=== PATIENT | female | born 1940 | race Caucasian/White ===

== ENCOUNTER 2017-09-29 12:15 | Emergency (ER) | payer MEDICARE, OTHER, SELFPAY | END 2017-09-29 13:47 | disposition home or self-care (01) | PROVIDERS: Emergency Provider Emergency Medicine; Family Provider Family Medicine; Visit Provider Emergency Medicine | DX: J45.909 Unspecified asthma, uncomplicated (principal); J20.9 Acute bronchitis, unspecified; E11.9 Type 2 diabetes mellitus without complications; Z79.4 Long term (current) use of insulin; I10 Essential (primary) hypertension; E78.5 Hyperlipidemia, unspecified; K21.9 Gastro-esophageal reflux disease without esophagitis; E03.9 Hypothyroidism, unspecified; Z20.828 Contact with and (suspected) exposure to other viral communicable diseases; Z79.899 Other long term (current) drug therapy | CPT/HCPCS: 71020; 87070; 87275; 87276; 87430 ==

== ENCOUNTER → 2017-10-29 09:31 | Outpatient (CLI) | payer MEDICARE, OTHER, SELFPAY ==
[2017-10-29 11:23] VITALS: PULSE 89; PULSE 90
== END ==
PROVIDERS: Family Provider Family Medicine; PCP Family Medicine; Visit Provider Physician Assistant
DX: J40 Bronchitis, not specified as acute or chronic (principal); R05 Cough
CPT/HCPCS: 94060; 94640; 94727; 94729

== ENCOUNTER → 2018-01-31 08:24 | Outpatient (CLI) | payer MEDICARE, OTHER, SELFPAY ==
[2018-01-31 11:59] LABS: Free T4 (Free Thyroxine) 1.67 ng/dl (0.76-1.46); Thyroid Stimulating Hormone 3.75 uIU/ml (0.358-3.740)
== END ==
PROVIDERS: Visit Provider Otolaryngology
DX: E03.9 Hypothyroidism, unspecified (principal)
CPT/HCPCS: 36415; 84439; 84443

== ENCOUNTER → 2018-03-04 10:07 | Outpatient (CLI) | payer MEDICARE, OTHER, SELFPAY ==
[2018-03-04 11:50] LABS: Free T4 (Free Thyroxine) 1.23 ng/dl (0.76-1.46); Thyroid Stimulating Hormone 8.35 uIU/ml (0.358-3.740)
== END ==
PROVIDERS: Visit Provider Otolaryngology
DX: E03.9 Hypothyroidism, unspecified (principal)
CPT/HCPCS: 36415; 84439; 84443

== ENCOUNTER → 2018-03-31 14:15 | Outpatient (CLI) | payer MEDICARE, OTHER, SELFPAY ==
[2018-04-02 12:25] LABS: Triiodothyronine (T3) Free 2.1 pg/mL (2.0-4.4)
== END ==
PROVIDERS: Family Provider Family Medicine; PCP Family Medicine; Visit Provider Otolaryngology
DX: E03.9 Hypothyroidism, unspecified (principal)
CPT/HCPCS: 36415; 84439; 84481

== ENCOUNTER → 2018-04-03 09:42 | Outpatient (CLI) | payer MEDICARE, OTHER, SELFPAY ==
--- NOTE | 2018-04-03 09:50 | MM_ITS ---
MM Dig screening mamm BI w/CAD CAD Screening COMPARISON: Digital mammograms 07/26/2016 INDICATION: There is no personal or family history of breast cancer. TECHNIQUE: Standard CC and MLO images were obtained. R2 CAD reviewed. FINDINGS: Breasts are composed primarily of fat with scattered fiber glandular densities throughout each breast. There are few scattered benign-appearing calcifications in each breast. There are stable tiny nodular densities in each breast. There is no suspicious lesion and there are no suspicious microcalcifications. IMPRESSION: Fatty type breast parenchyma with no suspicious lesion seen BI-RADS Category: 2 Benign Finding(s) RECOMMENDED FOLLOW-UP: 1YR - 1 YEAR FOLLOW-UP (A letter has been sent to the patient regarding results of the study.)
== END ==
PROVIDERS: Family Provider Family Medicine; PCP Family Medicine; Visit Provider Family Medicine
DX: Z12.31 Encounter for screening mammogram for malignant neoplasm of breast (principal)
CPT/HCPCS: 77067

== ENCOUNTER → 2018-10-09 09:42 | Outpatient (CLI) | payer MEDICARE, OTHER, SELFPAY ==
[2018-10-09 11:13] LABS: Free T4 (Free Thyroxine) 1.36 ng/dl (0.76-1.46); Thyroid Stimulating Hormone 2.82 uIU/ml (0.358-3.740)
== END ==
PROVIDERS: Visit Provider Otolaryngology
DX: E03.9 Hypothyroidism, unspecified (principal)
CPT/HCPCS: 36415; 84439; 84443

== ENCOUNTER → 2019-03-19 08:21 | Outpatient (CLI) | payer MEDICARE, OTHER, SELFPAY ==
--- NOTE | 2019-03-19 08:26 | XR_ITS ---
XR chest 2V HISTORY: ITS.REASON: COUGH ORDERING PHYSICIAN: Harry Cotter MD PATIENT AGE: 78 years COMPARISON: 09/29/2017 FINDINGS: The cardiomediastinal silhouette and pulmonary vascularity are within normal limits. Linear density is present within the lingula and may be due to an area of atelectasis or fibrosis. The remaining lungs are clear. No acute bony findings. IMPRESSION: Atelectatic or fibrotic changes within the lingula
== END ==
PROVIDERS: PCP Family Medicine; Visit Provider Family Medicine
DX: R05 Cough (principal)
CPT/HCPCS: 71046

== ENCOUNTER → 2019-04-07 10:55 | Outpatient (CLI) | payer MEDICARE, OTHER, SELFPAY ==
[2019-04-07 12:33] LABS: Free T4 (Free Thyroxine) 1.42 ng/dl (0.76-1.46); Thyroid Stimulating Hormone 2.51 uIU/ml (0.358-3.740)
== END ==
PROVIDERS: Visit Provider Otolaryngology
DX: E03.9 Hypothyroidism, unspecified (principal)
CPT/HCPCS: 36415; 84439; 84443

== ENCOUNTER → 2019-04-21 09:40 | Outpatient (CLI) | payer MEDICARE, OTHER, SELFPAY ==
--- NOTE | 2019-04-21 09:46 | MM_ITS ---
MM Dig screening mamm BI w/CAD ORDERING PHYSICIAN : Harry Cotter MD PATIENT AGE: 78 years GENDER: Female COMPARISON: March 2018, August 2013, March 2015 + INDICATION: Routine l SCREENING TECHNIQUE: Standard CC and MLO images were obtained. R2 CAD reviewed. Additional Cc nipple profile views bilateral included FINDINGS: Minimal residual fibroglandular elements throughout the breast most evident towards upper-outer quadrant. Moderate generalized fatty replacement otherwise most evident towards the deep breast Overall fibroglandular pattern is stable with no new areas of significant concern. There are some scattered small areas of nodularity bilaterally but these appear similar to previous studies. RIGHT BREAST:No new areas of significant concern Scattered small discrete punctate calcifications at the medial right breast are likely within the skin based on prior studies. Not of concern LEFT BREAST:No new areas significant concern Small calcifications at the superior central breast 12:00 are unchanged. Since 2014 ............ IMPRESSION: ............ . Stable mammogram with no new areas significant concern... BI-RADS Category: 2 Benign Finding(s) RECOMMENDED FOLLOW-UP: 1YR 1 YEAR FOLLOW-UP (A letter has been sent to the patient regarding results of the study.)
--- NOTE | 2019-04-21 09:47 | XR_ITS ---
XR DEXA axial skeleton HISTORY: ITS.REASON: OSTEOPORSIS ORDERING PHYSICIAN: Harry Cotter MD PATIENT AGE: 78 years COMPARISON: None FINDINGS: There are some areas of mild false elevation of the bone density measurement in the mid lumbar spine which could be from degenerative changes although I cannot rule out some overlying arterial calcified plaques which also cause false elevation of the bone mass. The BMD measured at the left femoral neck is 0.693 g/cm squared with a T score of -2.5. This is considered osteoporosis according to the World Health Organization criteria. Fracture risk is Moderate. Treatment is advised. IMPRESSION: Osteoporosis.
== END ==
PROVIDERS: PCP Family Medicine; Visit Provider Family Medicine
DX: Z12.31 Encounter for screening mammogram for malignant neoplasm of breast (principal); M81.0 Age-related osteoporosis without current pathological fracture
CPT/HCPCS: 77067; 77080

== ENCOUNTER → 2019-10-06 11:17 | Outpatient (CLI) | payer MEDICARE, OTHER, SELFPAY ==
[2019-10-06 13:06] LABS: Free T4 (Free Thyroxine) 1.13 ng/dl (0.76-1.46); Thyroid Stimulating Hormone 7.83 uIU/ml (0.358-3.740)
== END ==
PROVIDERS: Visit Provider Otolaryngology
DX: E03.9 Hypothyroidism, unspecified (principal)
CPT/HCPCS: 36415; 84439; 84443

== ENCOUNTER → 2019-10-20 08:27 | Outpatient (CLI) | payer MEDICARE, OTHER, SELFPAY ==
--- NOTE | 2019-10-20 08:33 | US_ITS ---
PROCEDURE: US ABDOMEN LIMITED CLINICAL INDICATION: RUQ PAIN COMPARISON: Palpable mass abdominal wall FINDINGS: PANCREAS: Unremarkable. No obvious mass or abnormal fluid collection. No ductal dilatation LIVER: There is heterogenicity of liver echotexture. No focal liver lesions demonstrated. No intrahepatic biliary ductal dilatation evident. There is appropriate direction of blood flow within a non dilated portal vein RIGHT KIDNEY: Unremarkable. Normal size and echogenicity. No hydronephrosis GALLBLADDER: There is cholelithiasis without ancillary findings of acute cholecystitis. There is no gallbladder wall thickening or findings of acute cholecystitis, pericholecystic fluid, or biliary dilatation. Images of the anterior abdominal wall targeted to the area of palpable abnormality demonstrates soft tissues with a questionable poorly defined mass measuring up to 5.8 x 4.7 centimeters. No benign appearing cyst or fluid collection is apparent. Consider CT for more definitive assessment. IMPRESSION: Cholelithiasis without ancillary findings of acute cholecystitis. Questionable soft tissue mass of anterior abdominal wall corresponding to palpable abnormality. CT should be considered to further evaluate. Dictated by: Alvarez More 10/20/2019 09:48 Electronically signed by Alvarez More in [facility] 10/20/2019 09:48
== END ==
PROVIDERS: PCP Family Medicine; Visit Provider Family Medicine
DX: R10.11 Right upper quadrant pain (principal)
CPT/HCPCS: 76705

== ENCOUNTER → 2019-10-30 08:42 | Outpatient (CLI) | payer MEDICARE, OTHER, SELFPAY ==
[2019-10-30 10:06] LABS: Blood Urea Nitrogen 15 mg/dL (7-18); Creatinine,Serum 1.09 mg/dL (0.55-1.02); Estimated Glomerular Filt Rate 48 ml/min (>60); GFR (African American) 59 ML/MIN (>60)
== END ==
PROVIDERS: Visit Provider Family Medicine
DX: M79.9 Soft tissue disorder, unspecified (principal)
CPT/HCPCS: 36415; 82565; 84520

== ENCOUNTER → 2019-11-04 09:21 | Outpatient (CLI) | payer MEDICARE, OTHER, SELFPAY ==
--- NOTE | 2019-11-04 09:32 | CT_ITS ---
PROCEDURE: CT ABDOMEN WO CON CLINICAL HISTORY: SOFT TISSUE MASS,ATTN TO RUQ ABD WALL Right-sided abdominal soft tissue mass COMPARISON: ABDPELW/O CT ABD PELVIS W/O CONTRAST from 02/01/2015 US ABDOMEN LIMITED from 10/20/2019 TECHNIQUE: Axial images obtained with sagittal and coronal reformats. All CT scans at the facility use one or more dose reduction, viz: automated exposure control, ma/kV adjustment per patient size (including targeted exams where dose is matched to indication, i.e. head), or iterative reconstruction technique. FINDINGS: There are mild atelectatic changes in the lung bases. Coronary artery and mitral valve annular calcifications are noted. Cholelithiasis. There is elevation of the right hemidiaphragm. The liver, spleen, adrenal glands, and pancreas have an unremarkable appearance. 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 There is a 2 mm punctate stone in the mid aspect of the right kidney. The left kidney has an unremarkable appearance. No ureteral calculi are evident. There is diverticulosis of the colon. The pelvis is not imaged on the exam. A marker is placed in the right mid abdominal region anteriorly correlating to the palpable abnormality. There is asymmetry in the subcutaneous fat at this area consistent with lipoma involvement. No suspicious soft tissue masses are evident. There are mild degenerative changes of the lumbar spine. IMPRESSION: 1. Palpable abnormality in the anterior abdominal wall in the right represents benign-appearing subcutaneous fat consistent with lipomatosis involvement. 2. Cholelithiasis. 3. Right nephrolithiasis. 4. Colonic diverticulosis Dictated by: Chris Jha MD 11/05/2019 08:15 Electronically signed by Chris Jha MD in [facility] 11/05/2019 08:15
== END ==
PROVIDERS: PCP Family Medicine; Visit Provider Family Medicine
DX: M79.9 Soft tissue disorder, unspecified (principal)
CPT/HCPCS: 74150

== ENCOUNTER → 2020-01-08 10:15 | Outpatient (CLI) | payer MEDICARE, OTHER, SELFPAY ==
--- NOTE | 2020-01-08 | CA_ITS ---
APPROVED REPORT Left Lower Extremity Venous Study for DVT. Lead Systems Architect: CÉSAR Indications Lower Extremity Pain: Lower Extremity Edema: Left Risk Factors Prior Phlebitis/DVT Obesity Vein Imaging CFV (L): compressive, spontaneous, phasic, augmentation FEM (L): compressive, spontaneous, phasic, augmentation POP (L): compressive, spontaneous, phasic, augmentation PTV (L): Compressible GSV (L): compressive, spontaneous, phasic, augmentation SSV (L): Compressible Peroneals (L):Compressible GAS (L): Compressible Findings No evidence of DVT or superficial thrombophlebitis in the veins scanned of the left lower extremity. Conclusion No evidence of DVT or superficial thrombophlebitis in the veins scanned of the left lower extremity. Electronically signed by : Chris Jha MD 01/08/2020 13:47:30
== END ==
PROVIDERS: PCP Family Medicine; Visit Provider Family Medicine
DX: M79.605 Pain in left leg (principal)
CPT/HCPCS: 93971

== ENCOUNTER → 2020-04-04 08:30 | Outpatient (CLI) | payer MEDICARE, OTHER, SELFPAY ==
[2020-04-04 10:31] LABS: Thyroid Stimulating Hormone 8.52 uIU/mL (0.465-4.68)
[2020-04-04 11:09] LABS: Free T4 (Free Thyroxine) 1.13 ng/dl (0.78-2.19)
== END ==
PROVIDERS: Visit Provider Otolaryngology
DX: E03.9 Hypothyroidism, unspecified (principal); E06.9 Thyroiditis, unspecified
CPT/HCPCS: 36415; 84439; 84443

== ENCOUNTER 2020-04-05 17:58 | Emergency (ER) | payer MEDICARE, OTHER, SELFPAY ==
--- NOTE | 2020-04-05 | ECG_ITS ---
APPROVED REPORT Exam: Resting ECG HR:85 bpm ECG Measurements Heart Rate 85 AXES KS 166 P 72 QRSd 90 QRS -46 QT 398 T 44 QTc 473 <Conclusion> Sinus rhythm with marked sinus arrhythmia Left anterior fascicular block Minimal voltage criteria for LVH, may be normal variant Possible Anterior infarct, age undetermined Abnormal ECG Electronically signed by : John Rosado, 04/07/2020 15:36:14
[2020-04-05 18:11] VITALS: BP 190/82; PULSE 109; RESP 18; TEMP 36.6; O2SAT 96; BMI 38.6
--- NOTE | 2020-04-05 18:20 | ECG_ITS ---
APPROVED REPORT Exam: Resting ECG HR:86 bpm ECG Measurements Heart Rate 86 AXES RI 178 P 32 QRSd 94 QRS -44 QT 398 T 42 QTc 476 <Conclusion> Sinus rhythm with marked sinus arrhythmia Left axis deviation Incomplete right bundle branch block Minimal voltage criteria for LVH, may be normal variant Anterior infarct, age undetermined Abnormal ECG Electronically signed by : John Rosado, 04/07/2020 15:35:41
--- NOTE | 2020-04-05 18:22 | HMH.EDGENADL ---
ED Disposition Clinical Impression: Hypertension Qualifiers: Hypertension type: essential hypertension Qualified Code(s): I10 - Essential (primary) hypertension Disposition: Home, Self-Care Condition on Discharge: Good Instructions: Recommendations to Help Prevent High Blood Pressure Additional Instructions: You have been evaluated for high blood pressure. Please continue to take all medications as prescribed. Follow-up with your primary care provider tomorrow as scheduled. You may need to make changes to your medication at that time. Return to the emergency department if you have any new or worsening symptoms, headache, vision changes, chest pain, other concerns. Referrals: Harry Cotter MD [Primary Care Provider] - Time of Disposition: 20:08 - Critical Care Critical Care Time: No Attestation: On 04/05/20, the high probability of a clinically significant, sudden or life threatening deterioration of the following system(s) required my full and direct attention, intervention and personal management. The time I documented below is in addition to time spent performing reported procedures but includes the following listed in this critical care notation. Medical Decision Making - Medical Records Medical records reviewed: Yes: I reviewed the patient's medical records. - Wojciech Inquiry Pt receiving controlled substance: No Vital Signs: 04/05/20 18:11 04/05/20 19:40 04/05/20 20:00 Temperature 97.9 F Temperature Source Oral Pulse Rate [Right Brachial] 109 H 90 77 Respiratory Rate 18 18 17 Blood Pressure [Right Arm] 190/82 H 157/85 H 171/68 H Blood Pressure Mean [Right Arm] 118 109 102 Blood Pressure Source [Right Arm] Automatic Cuff Automatic Cuff Automatic Cuff Blood Pressure Position [Right Arm] Sitting Sitting Supine 02 Sat by Pulse Oximetry 96 94 L 94 L Oxygen Delivery Method Room Air Room Air Room Air - Lab Data Lab Results 04/05/20 18:10: WBC 7.1, RBC 4.76, Hgb 14.8, Hct 43.2, MCV 90.7, MCH 31.1, MCHC 34.3, RDW 14.1, Plt Count 403, MPV 7.9, Neut % (Auto) 53.4, Lymph % (Auto) 37.5, [place] % (Auto) 6.2, Eos % (Auto) 2.4, Baso % (Auto) 0.7, Neut # (Auto) 3.8, Lymph # (Auto) 2.7, [place] # (Auto) 0.4, Eos # (Auto) 0.2, Baso # (Auto) 0.1 04/05/20 18:10: Sodium 140, Potassium 4.3, Chloride 107, Carbon Dioxide 24, Anion Gap 13.3, BUN 14, Creatinine 0.70, Estimated Creat Clear 75, Estimated GFR 81, Est GFR ( Amer) 97, Glucose 184 H, Calcium 9.6, Phosphorus 3.8, Magnesium 1.9, Total Bilirubin 0.7, AST 42 H, ALT 27, Alkaline Phosphatase 123, Troponin I < 0.01, Total Protein 7.4, Albumin 4.0, Globulin 3.4 H, Albumin/Globulin Ratio 1.2, TSH 6.35 H D 04/05/20 18:10: NT-Pro-B Natriuret Pep 236 04/05/20 18:10: Free T4 1.15 04/05/20 19:35: Urine Color Yellow, Urine Appearance Clear, Urine pH 5.5, Ur Specific [place] >= 1.030, Urine Protein 2+, Urine Glucose (UA) Negative, Urine Ketones Trace, Urine Blood Negative, Urine Nitrate Negative, Urine Bilirubin Negative, Urine Urobilinogen 1.0, Ur Leukocyte Esterase Trace, Urine WBC 3-5, Ur Squamous Epith Cells 5-10, Urine Bacteria Trace, Hyaline Casts Occasional Result diagrams: 04/05/20 18:10 04/05/20 18:10 Orders (Tests/Meds): ORDERS Category Date Time Status XR chest portable Stat Exams 04/05/20 18:52 Taken Troponin I Q3H Lab 04/05/20 21:30 Ordered Troponin I Q3H Lab 04/06/20 00:30 Ordered EKG Request [ECG Request by /[facility]] Stat Y 04/05/20 18:20 Ordered EKG Request [ECG Request by /[facility]] Stat Y 04/05/20 19:25 Ordered - ECG Data Tracing #1 Sinus rhythm with ventricular rate of 85 bpm. QRS 90, QTc 473. Marked sinus arrhythmia. Medical Decision Narrative: In summary this is an 79-year-old female with history of hypertension presenting to the emergency department palpitations and elevated blood pressure. Patient is conversational on arrival. No acute distress. Differential diagnoses include essential hypertension, medication misu
[2020-04-05 18:31] LABS: Basophils # 0.1 K/mm3 (0-0.2); Basophils % 0.7 % (0.1-2.0); Eosinophils # 0.2 K/mm3 (0.0-0.4); Eosinophils % 2.4 % (0.1-12.0); Hematocrit 43.2 % (37.0-47.0); Hemoglobin 14.8 g/dL (12.2-16.2); Lymphocytes # 2.7 K/mm3 (0.7-4.5); Lymphocytes % 37.5 % (10-50); Mean Corpuscular HGB Conc 34.3 g/dL (31.8-35.4); Mean Corpuscular Hemoglobin 31.1 pg (27.0-31.2); Mean Corpuscular Volume 90.7 fl (81-99); Mean Platelet Volume 7.9 fl (7.4-10.4); Monocytes # 0.4 K/mm3 (0.1-1.0); Monocytes % 6.2 % (1.7-9.3); Neutrophils # 3.8 K/mm3 (1.8-7.8); Neutrophils % 53.4 % (37.0-80.0); Platelet Count 403 K/mm3 (142-424); Red Blood Count 4.76 M/mm3 (4.20-5.40); Red Cell Distribution Width 14.1 % (11.5-17.5); White Blood Count 7.1 K/mm3 (4.8-10.8)
[2020-04-05 18:33] LABS: Chloride 107 mmol/L (98-107); Potassium 4.3 mmoL/L (3.5-5.1); Sodium 140 mmol/L (136-145)
[2020-04-05 18:35] LABS: Blood Urea Nitrogen 14 mg/dl (7-17); Creatinine Clearance Estimated 75 mL/min (50-200); Estimated Glomerular Filt Rate 81 ml/min (>60); GFR (African American) 97 ML/MIN (>60)
[2020-04-05 18:36] LABS: Alanine Aminotransferase 27 U/L (12-78); Albumin/Globulin Ratio 1.2 (1.1-1.8); Alkaline Phosphatase 123 U/L (38-126); Anion Gap 13.3 mEq/L (5-15); Aspartate Amino Transferase 42 U/L (14-36); Bilirubin,Total 0.7 mg/dl (0.2-1.3); Calcium 9.6 mg/dl (8.4-10.2); Carbon Dioxide 24 mmol/L (22.0-30.0); Globulin 3.4 g/dL (1.3-3.2); Glucose 184 mg/dl (74-100); Magnesium 1.9 mg/dl (1.6-2.3); Phosphorous 3.8 mg/dl (2.5-4.5); Total Protein,Serum 7.4 g/dl (6.3-8.2)
[2020-04-05 18:44] LABS: NT Pro Brain Natriuretic Pep. 236 pg/mL (0-450)
--- NOTE | 2020-04-05 18:52 | XR_ITS ---
PROCEDURE: XR CHEST PORTABLE CLINICAL HISTORY: sob Shortness of breath, hypertension COMPARISON: CXR CHEST(2 VIEWS-NOT PORTABLE) from 03/16/2016 CXR CHEST(2 VIEWS-NOT PORTABLE) from 08/15/2017 CXR CHEST(2 VIEWS-NOT PORTABLE) from 09/29/2017 FINDINGS: Borderline cardiomegaly without failure. The lungs are clear without infiltrates, suspicious nodules, or pleural effusions. No acute bony abnormalities. IMPRESSION: Borderline cardiomegaly, no acute Dictated by: Chris Jha MD 04/06/2020 07:30 Electronically signed by Chris Jha MD in [facility] 04/06/2020 07:30
[2020-04-05 18:57] LABS: Troponin I < 0.01 ng/ml (0.00-0.034)
[2020-04-05 19:03] LABS: Free T4 (Free Thyroxine) 1.15 ng/dl (0.78-2.19)
[2020-04-05 19:06] LABS: Thyroid Stimulating Hormone 6.35 uIU/mL (0.465-4.68)
[2020-04-05 19:40] VITALS: BP 157/85; PULSE 90; RESP 18; O2SAT 94
[2020-04-05 19:44] LABS: Microscopic, Urine URINE MICROSCOPIC (MICROSCOPIC)
[2020-04-05 19:48] LABS: Appearance,Urine CLEAR (Clear); Bilirubin,Urine Negative (Negative); Blood, Urine Negative (Negative); Color,Urine YELLOW (Yellow); Glucose,Urine (UA) Negative (Negative); Ketones,Urine TRACE (Negative); Leukocyte Esterase,Urine TRACE (Negative); Nitrate,Urine Negative (Negative); PH,Urine 5.5 (5.0-8.5); Protein,Urine 2+ (Negative); Specific Gravity, Urine >= 1.030 (1.005-1.030)
[2020-04-05 19:55] LABS: Bacteria,Urine Trace /lpf; Hyaline Casts,Urine Occasional #/lpf (0)
[2020-04-05 20:00] VITALS: BP 171/68; PULSE 77; RESP 17; O2SAT 94
[2020-04-05 20:22] VITALS: BP 171/68; PULSE 77; RESP 17; TEMP 36.6; O2SAT 98
== END 2020-04-05 20:25 | disposition home or self-care (01) ==
PROVIDERS: Emergency Provider Emergency Medicine; PCP Family Medicine
DX: I16.0 Hypertensive urgency (principal); E03.9 Hypothyroidism, unspecified; E78.5 Hyperlipidemia, unspecified; E11.9 Type 2 diabetes mellitus without complications; Z79.899 Other long term (current) drug therapy; Z90.49 Acquired absence of other specified parts of digestive tract; Z90.79 Acquired absence of other genital organ(s); R06.02 Shortness of breath
CPT/HCPCS: 71045; 80053; 81001; 83735; 83880; 84100; 84439; 84443; 84484; 85025; 93005; 99283; 99284

== ENCOUNTER → 2020-04-13 15:36 | Outpatient (CLI) | payer MEDICARE, OTHER, SELFPAY ==
[2020-04-13 18:10] LABS: Basophils % 0.3 % (0.1-2.0); Eosinophils # 0.1 K/mm3 (0.0-0.4); Eosinophils % 0.6 % (0.1-12.0); Hematocrit 41.8 % (37.0-47.0); Hemoglobin 14.3 g/dL (12.2-16.2); Lymphocytes # 3.5 K/mm3 (0.7-4.5); Lymphocytes % 28.6 % (10-50); Mean Corpuscular HGB Conc 34.1 g/dL (31.8-35.4); Mean Corpuscular Hemoglobin 31.4 pg (27.0-31.2); Mean Corpuscular Volume 92.2 fl (81-99); Mean Platelet Volume 8.8 fl (7.4-10.4); Monocytes # 0.8 K/mm3 (0.1-1.0); Monocytes % 6.9 % (1.7-9.3); Neutrophils # 7.7 K/mm3 (1.8-7.8); Neutrophils % 63.5 % (37.0-80.0); Platelet Count 377 K/mm3 (142-424); Red Blood Count 4.54 M/mm3 (4.20-5.40); Red Cell Distribution Width 13.9 % (11.5-17.5); White Blood Count 12.1 K/mm3 (4.8-10.8)
[2020-04-13 18:14] LABS: Chloride 105 mmol/L (98-107); Potassium 3.9 mmoL/L (3.5-5.1); Sodium 140 mmol/L (136-145)
[2020-04-13 18:16] LABS: Amylase 59 U/L (30-110); Blood Urea Nitrogen 35 mg/dl (7-17); Estimated Glomerular Filt Rate 53 ml/min (>60); GFR (African American) 65 ML/MIN (>60)
[2020-04-13 18:17] LABS: Alanine Aminotransferase 20 U/L (12-78); Albumin Level 3.7 g/dl (3.5-5.0); Albumin/Globulin Ratio 1.1 (1.1-1.8); Alkaline Phosphatase 96 U/L (38-126); Aspartate Amino Transferase 30 U/L (14-36); Bilirubin,Total 0.6 mg/dl (0.2-1.3); Calcium 8.6 mg/dl (8.4-10.2); Carbon Dioxide 23 mmol/L (22.0-30.0); Globulin 3.4 g/dL (1.3-3.2); Glucose 165 mg/dl (74-100); Lipase 163 U/L (23-300); Total Protein,Serum 7.1 g/dl (6.3-8.2)
[2020-04-15 14:12] LABS: Covid-19 Nasal PCR Sendout Lex NOT DETECTED
== END ==
PROVIDERS: PCP Physician Assistant; Visit Provider Physician Assistant
DX: Z03.818 Encounter for observation for suspected exposure to other biological agents ruled out (principal)
CPT/HCPCS: 36415; 80053; 82150; 83690; 85025; U0004

== ENCOUNTER → 2020-04-20 10:36 | Outpatient (CLI) | payer MEDICARE, OTHER, SELFPAY ==
--- NOTE | 2020-04-20 10:43 | XR_ITS ---
PROCEDURE: XR CHEST 2V CLINICAL HISTORY: SHORTNESS OF BREATH COMPARISON: CT ABDOMEN WO CON from 11/04/2019 FINDINGS: There is mild cardiomegaly without failure. Atelectatic changes are present in both lower lobes. Coarse calcification noted in the left upper quadrant consistent with a splenic artery aneurysm measuring 12 mm. No acute bony abnormalities. IMPRESSION: Cardiomegaly with mild bibasilar atelectasis Dictated by: Chris Jha MD 04/20/2020 13:05 Electronically signed by Chris Jha MD in [facility] 04/20/2020 13:05
== END ==
PROVIDERS: PCP Physician Assistant; Visit Provider Physician Assistant
DX: R06.02 Shortness of breath (principal)
CPT/HCPCS: 71046

== ENCOUNTER → 2020-05-02 08:59 | Outpatient (CLI) | payer MEDICARE, OTHER, SELFPAY ==
--- NOTE | 2020-05-02 09:04 | CA_ITS ---
APPROVED REPORT EXAM: Comprehensive 2D, Doppler, and color-flow Echocardiogram Industrial Custodian: Alexia Reis RVT Ht: 5 ft 5 in Wt: 226lbs BSA: 2.08 BP: 113/76 mmHg Indications: SOA,HTN,OBESITY 2D Dimensions LVOT 1.66 cm (M/F) 1.5-2.5 M-Mode Dimensions RVDd 2.50 cm (0.9-2.6) LVDd 4.75 cm (3.5-5.7) LVDs 2.88 cm (3.5-5.7) IVSd 1.23 cm (0.6-1.1) PWd 0.81 cm (0.6-1.1) EF (Teich) 69.80% FS 39.40% EDV (Teich) 104.90 mL ESV (Teich) 31.70 mL LV Diastology E/A Ratio 1.47 Aortic Valve AO VTI 53.04 (18-25 cm) Mitral Valve MV A Velocity 72.00 (40-130 cm/s) MV PHT 117.00 ms Left Ventricle Left atrium is mildly enlarged, left ventricle is normal size, mild concentric left ventricular hypertrophy, visually estimated ejection fraction 55% with no regional wall motion abnormality. Diastolic parameters are inconclusive. Right Ventricle Right atrium and right ventricular relatively normal size and function. Aortic Valve Aortic valve is thickened and calcified leaflet chordae display good mobility, there is no aortic stenosis or aortic insufficiency. Mitral Valve Mitral valve leaflets are minimally thickened, there is mild mitral regurgitation. Tricuspid Valve Tricuspid valve leaflets are minimally thickened, there is no tricuspid stenosis, there is mild tricuspid regurgitation, tricuspid regurgitation jet velocity is inadequate for calculation of the right ventricular systolic pressure. Pulmonic Valve Pulmonic valve is poorly visualized. Great Vessels Aortic root is normal size. Pericardium No significant pericardial effusion noted. Conclusion 1. Mildly enlarged left atrium, normal left ventricular size, mild concentric left ventricular hypertrophy, visually estimated ejection fraction 55% with no regional wall motion abnormality, diastolic parameters are inconclusive. 2. Thickened and calcified aortic valve without Doppler evidence of aortic stenosis or aortic insufficiency. 3. Mild mitral and tricuspid regurgitation. 4. No significant pericardial effusion noted. Electronically signed by : Randy Culver, 05/02/2020 18:51:48
== END ==
PROVIDERS: PCP Physician Assistant; Visit Provider Family Medicine
DX: R06.02 Shortness of breath (principal)
CPT/HCPCS: 93306

== ENCOUNTER → 2020-05-17 08:44 | Outpatient (CLI) | payer MEDICARE, OTHER, SELFPAY ==
--- NOTE | 2020-05-17 08:48 | MM_ITS ---
PROCEDURE: MM DIG SCREENING MAMM BI W/CAD Digital Breast Tomosynthesis Included CLINICAL INDICATION: SCREENING There is no personal or family history of breast cancer. COMPARISON: CR,MG BONE3 BONE DENSITOMETRY(HIP:LT SPINE from 03/19/2017 MG [facility] MM Dig screening mamm BI w/CAD from 04/03/2018 MG DIG MAMM-SCREEN MILY from 04/21/2019 TECHNIQUE: Standard CC and MLO images and 3D Tomosynthesis was obtained. R2 CAD reviewed. FINDINGS: Moderate scattered fibroglandular densities are seen throughout both breast and the findings are fairly symmetrical bilaterally. There are scattered benign-appearing microcalcifications in each breast. There is a mole marker left breast. There is no suspicious lesion in either breast and no suspicious microcalcifications. IMPRESSION: Fibrofatty parenchyma with no suspicious lesions seen BI-RAD Category: 2 Benign Finding(s) FOLLOW-UP: 1YR 1 Year Follow-up (A letter has been sent to the patient regarding results of the study.) Dictated by: Dr. Hugo Ha MD 05/17/2020 11:56 Dr. Hugo Ha MD in [facility] 05/17/2020 11:56
== END ==
PROVIDERS: PCP Family Medicine; Visit Provider Family Medicine
DX: Z12.31 Encounter for screening mammogram for malignant neoplasm of breast (principal)
CPT/HCPCS: 77063; 77067

== ENCOUNTER → 2020-06-09 11:28 | Outpatient (CLI) | payer MEDICARE, OTHER, SELFPAY ==
--- NOTE | 2020-06-09 11:34 | XR_ITS ---
PROCEDURE: XR HIP RT 2-3V W/PELVIS CLINICAL INDICATION: PAIN IN R LEG, UNSPECIFIED FALL COMPARISON: CR,MG BONE3 BONE DENSITOMETRY(HIP:LT SPINE from 03/19/2017 FINDINGS: There are mild osteoarthritic changes of the hips. No fracture or dislocation. No lytic or blastic change. Nonspecific vascular calcification is noted. IMPRESSION: Mild osteoarthritic change of the hips Dictated by: Chris Jha MD 06/09/2020 16:55 Chris Jha MD in [facility] 06/09/2020 16:55
--- NOTE | 2020-06-09 11:34 | XR_ITS ---
PROCEDURE: XR KNEE RT 3V CLINICAL INDICATION: PAIN IN R LEG, UNSPECIFIED FALL COMPARISON: No exams were available for comparison FINDINGS: No fracture or dislocation. No lytic or blastic change. There is normal mineralization. The joint spaces are well-preserved. No significant degenerative/arthritic changes. No erosive changes evident. Other findings:None. IMPRESSION: No acute findings. Dictated by: Chris Jha MD 06/09/2020 16:54 Chris Jha MD in [facility] 06/09/2020 16:54
== END ==
PROVIDERS: PCP Family Medicine; Visit Provider Family Medicine
DX: M79.604 Pain in right leg (principal)
CPT/HCPCS: 73502; 73562

== ENCOUNTER → 2020-06-27 08:17 | Outpatient (CLI) | payer MEDICARE, OTHER, SELFPAY ==
[2020-06-27 09:46] LABS: Free T4 (Free Thyroxine) 1.52 ng/dl (0.78-2.19)
[2020-06-27 10:00] LABS: Thyroid Stimulating Hormone 2.46 uIU/mL (0.465-4.68)
[2020-06-28 15:21] LABS: Triiodothyronine (T3) Free 2.5 pg/mL (2.0-4.4)
== END ==
PROVIDERS: Visit Provider Otolaryngology
DX: E03.9 Hypothyroidism, unspecified (principal)
CPT/HCPCS: 36415; 84439; 84443; 84481

== ENCOUNTER 2020-07-20 02:34 | Emergency (ER) | payer MEDICARE, OTHER, SELFPAY ==
[2020-07-20 02:35] VITALS: BP 160/78; PULSE 86; RESP 16; TEMP 36.7; O2SAT 97; BMI 38.2
--- NOTE | 2020-07-20 02:40 | PC.NURSE ---
pt stated she is unable to lift bilateral arms from pain.
--- NOTE | 2020-07-20 03:05 | PC.NURSE ---
spoke with estrellita jones who stated registration was doing pt incident report because they witnessed the incident
--- NOTE | 2020-07-20 03:11 | CT_ITS ---
PROCEDURE: CT LUMBAR SPINE WO CON CLINICAL HISTORY: fall Posttraumatic pain, fall with injury and pain COMPARISON: CT ABDPELW/O CT ABD PELVIS W/O CONTRAST from 02/01/2015 TECHNIQUE: Axial images obtained with sagittal and coronal reformats. All CT scans at the facility use one or more dose reduction, viz: automated exposure control, ma/kV adjustment per patient size (including targeted exams where dose is matched to indication, i.e. head), or iterative reconstruction technique. FINDINGS: No acute fracture or dislocation. No lytic or blastic change. There is mild multilevel spondylosis. L2-L3: Mild bulging disc. L3-L4: Bulging disc with mild bilateral foraminal narrowing. Small sclerotic focus involves L3. L4-5: Degenerative disc disease with bulging disc with facet and ligamentum hypertrophy. There is canal stenosis at this level with bilateral lateral recess and foraminal narrowing. There is 2 mm anterolisthesis of L4. There is an osteophyte on the left at the facet joint which protrudes into the spinal canal causing severe left lateral recess narrowing. L5-S1: Mild bulging disc. There is a 1 cm sclerotic density involving the right ilium posteriorly and may be due to a bone island. There is stranding of the peritoneal fat anterior to the left of the aorta beginning at the L3-L4 level and extending inferiorly to the L5-S1 level. Is this was not present on a prior CT abdomen of 02/01/2015. Underlying inflammatory changes or posttraumatic changes are considered. Abdomen CT with IV contrast may provide further evaluation. Cholelithiasis IMPRESSION: 1. No acute fracture. 2. Multilevel lumbar spondylosis as described above. Please see above for detailed description at each level. There is severe left lateral recess narrowing at L4-5 due to the degenerative disc disease and a prominent osteophyte from the facet joint at that level. Canal stenosis is also present at L4-5 3. Stranding of the peritoneal fat anterior to the lower abdominal aorta etiology indeterminate. Consider abdomen CT with contrast for further evaluation. 4. Cholelithiasis Dictated by: Chris Jha MD 07/20/2020 06:30 Chris Jha MD in [facility] 07/20/2020 06:30
--- NOTE | 2020-07-20 03:11 | XR_ITS ---
PROCEDURE: XR PELVIS 1-2V CLINICAL INDICATION: fall Posttraumatic pain COMPARISON: CR XR HIP RT 2-3V W/PELVIS from 06/09/2020 TECHNIQUE: XR Pelvis AP View FINDINGS: No fracture or dislocation is evident. No significant degenerative change. No lytic or blastic change. IMPRESSION: No acute findings. Dictated by: Chris Jha MD 07/20/2020 05:42 Chris Jha MD in [facility] 07/20/2020 05:42
--- NOTE | 2020-07-20 03:11 | CT_ITS ---
PROCEDURE: CT THORACIC SPINE WO CON CLINICAL HISTORY: fall Injury with pain, for back pain following injury COMPARISON: No exams were available for comparison TECHNIQUE: Axial images obtained with sagittal and coronal reformats. All CT scans at the facility use one or more dose reduction, viz: automated exposure control, ma/kV adjustment per patient size (including targeted exams where dose is matched to indication, i.e. head), or iterative reconstruction technique. FINDINGS: No acute fracture or dislocation is evident. There is mild multilevel thoracic spondylosis with multilevel degenerative disc disease with endplate osteophytes noted. No acute fracture or dislocation. No lytic or blastic change. There is mild thoracic scoliosis convex right. There is mitral valve annular calcification and coronary artery calcification IMPRESSION: No acute fracture. Thoracic spondylosis Dictated by: Chris Jha MD 07/20/2020 06:22 Chris Jha MD in [facility] 07/20/2020 06:22
--- NOTE | 2020-07-20 03:11 | CT_ITS ---
PROCEDURE: CT HEAD/BRAIN WO CON CLINICAL INDICATION: fall Head injury with headache/pain, contusion, abrasion or hematoma COMPARISON: No exams were available for comparison TECHNIQUE: Axial images obtained. All CT scans at the facility use one or more dose reduction, viz: automated exposure control, ma/kV adjustment per patient size (including targeted exams where dose is matched to indication, i.e. head), or iterative reconstruction technique. FINDINGS: No midline shift, mass effect, intracranial hemorrhage, hydrocephalus, or extra-axial fluid collection is evident. The calvarium has an unremarkable appearance. No mastoid effusion. No sinus air-fluid level. IMPRESSION: No acute intracranial finding Dictated by: Chris Jha MD 07/20/2020 06:15 Chris Jha MD in [facility] 07/20/2020 06:15
--- NOTE | 2020-07-20 03:11 | CT_ITS ---
PROCEDURE: CT CERVICAL SPINE WO CON CLINICAL INDICATION: fall Neck injury with pain, contusion/abrasion or hematoma, cervical sprain/strain the COMPARISON: No exams were available for comparison TECHNIQUE: Axial images obtained with sagittal and coronal reformats. All CT scans at the facility use one or more dose reduction, viz: automated exposure control, ma/kV adjustment per patient size (including targeted exams where dose is matched to indication, i.e. head), or iterative reconstruction technique. Axial spiral CT scanning performed of the cervical spine beginning at the base of the skull and continuing to the upper T-spine. 3-D multiplanar reconstruction with 3-D manipulation of volumetric data set in image rendering was completed by the radiologist and/or technologist with the supervision of the radiologist on independent workstation. FINDINGS: There is straightening of the cervical lordosis. No acute fracture or dislocation is evident. C3-C4: Mild degenerative disc disease. C4-C5: Mild degenerative disc disease. C5-C6: Degenerate disc disease with endplate hypertrophic change with borderline canal stenosis. Degenerative changes are present involving the temporomandibular joints. Lung apices are clear. There is a semilunar appearance of the trachea which may be seen with tracheal bronchomalacia. IMPRESSION: 1. No acute fracture. 2. Degenerative changes Dictated by: Chris Jha MD 07/20/2020 06:19 Chris Jha MD in [facility] 07/20/2020 06:19
--- NOTE | 2020-07-20 03:11 | XR_ITS ---
PROCEDURE: XR CHEST AP CLINICAL HISTORY: fall Posttraumatic pain COMPARISON: CR CXR CHEST(2 VIEWS-NOT PORTABLE) from 09/29/2017 CR XR CHEST PORTABLE from 04/05/2020 CR XR CHEST 2V from 04/20/2020 FINDINGS: There are low lung volumes with poor inspiration. There is cardiomegaly without failure. Vascular crowding is present throughout. No lobar consolidation or collapse. No evidence of pneumothorax. No acute bony findings. No acute bony abnormalities. IMPRESSION: Poor inspiration with cardiomegaly. No acute finding Dictated by: Chris Jha MD 07/20/2020 05:42 Chris Jha MD in [place] 07/20/2020 05:42
--- NOTE | 2020-07-20 03:16 | INFXCTL.NOTE ---
pt assisted staff with placing pt in a gown and was able to move both arms more at this time.
--- NOTE | 2020-07-20 03:17 | HMH.EDFALL ---
ED Disposition Clinical Impression: Central cord syndrome Qualifiers: Encounter type: initial encounter Qualified Code(s): S14.129A - Central cord syndrome at unspecified level of cervical spinal cord, initial encounter Disposition: Xfer Short-Term Hosp Condition on Discharge: Fair Referrals: Harry Cotter MD [Primary Care Provider] - - Critical Care Critical Care Time: No Attestation: On 07/20/20, the high probability of a clinically significant, sudden or life threatening deterioration of the following system(s) required my full and direct attention, intervention and personal management. The time I documented below is in addition to time spent performing reported procedures but includes the following listed in this critical care notation. Medical Decision Making - Medical Records Medical records reviewed: Yes: I reviewed the patient's medical records. - Wojciech Inquiry Pt receiving controlled substance: No Vital Signs: 07/20/20 02:35 07/20/20 04:30 Temperature 98.1 F Temperature Source Oral Pulse Rate [Left Radial] 86 78 Respiratory Rate 16 16 Blood Pressure [Right Arm] 160/78 H 147/82 H Blood Pressure Mean [Right Arm] 105 103 Blood Pressure Source [Right Arm] Automatic Cuff Automatic Cuff Blood Pressure Position [Right Arm] Sitting 02 Sat by Pulse Oximetry 97 95 Oxygen Delivery Method Room Air Room Air - Lab Data Lab results reviewed: Yes: I reviewed the patient's lab results. Orders (Tests/Meds): ORDERS Category Date Time Status CT cervical spine wo con Stat Cat Scan 07/20/20 03:[address] head/brain wo con Stat Cat Scan 07/20/20 03:[address] lumbar spine wo con Stat Cat Scan 07/20/20 03:[address] thoracic spine wo con Stat Cat Scan 07/20/20 03:11 Ordered XR chest AP Stat Exams 07/20/20 03:11 Ordered XR pelvis 1-2V Stat Exams 07/20/20 03:11 Ordered - Radiology Data #1 Image(s): Chest, Pelvis Image Reviewed: Yes I reviewed the patient's radiology image Preliminary Findings: No Fracture Seen - CT Data CT Scan: Head, C-Spine, T-Spine, L-Spine Time Received: 05:[address] Reviewed: Yes: I have viewed the radiologist's interpretation Preliminary Findings: Abnormal, No Fracture Seen - Physician Consults Physician Consulted: - spine - dr prasad Reason -: Transfer to another facilty - Reevaluation(s) Time: 05:26 Reevaluation #1: still with dec use of upper ext Fall HPI - General Chief Complaint: Fall Stated Complaint: AO 07/20/20 02.20 fell in ER waiting room Time Seen by Provider: 07/20/20 03:17 Mode of Arrival: Ambulatory Source of Information: Patient, Spouse, Medical Record Limitations: Physical Limitations Description of Symptoms (Recalled from ER Triage Doc. by RN): pt lost her footing and tripped and fell in the hospital lobby. pt stated she fell forward and attempted to catch herself with her arms out. pt c/o bilateral upper arm pain and middle/ lower back pain at this tiime. pt denies any LOC, dizziness, or head injury. - History of Present Illness HPI Narrative: fell going to bathroom at [facility] - trip type injury w/o chest pain or syncope and c/o of bilat upper ext dec strength - no other sig c/o MD complaint: fall Onset (ago): hour(s) Fall from: walking Fall witnessed: no Place fall occurred: other ([facility]) Loss of consciousness: none Length of LOC: second(s) Prolonged down time: no Context: tripped/slipped Location of injury: neck Severity: moderate Associated symptoms (after fall): denies - Related Data Home Medications Medication Instructions Recorded Confirmed aspirin 81 mg tablet,delayed 81 mg PO ONCE 02/10/18 07/20/20 release cholecalciferol (vitamin D3) 25 1,000 unit PO ONCE 02/10/18 07/20/20 mcg (1,000 unit) capsule cyanocobalamin (vitamin B-12) 1,000 mcg PO ONCE 02/10/18 07/20/20 1,000 mcg tablet fenofibrate 160 mg tablet 160 mg PO ONCE 02/10/18 07/20/20 fluoxetine 20 mg capsule 20 mg PO ONCE
[2020-07-20 04:30] VITALS: BP 147/82; PULSE 78; RESP 16; O2SAT 95
--- NOTE | 2020-07-20 04:30 | PC.NURSE ---
pt back from RAD
--- NOTE | 2020-07-20 04:46 | PC.NURSE ---
at bedside. pt expresses she is able to move are arms more but not back to baseline at this time
--- NOTE | 2020-07-20 04:48 | PC.NURSE ---
C-Collar applied to pt
--- NOTE | 2020-07-20 04:55 | PC.NURSE ---
speaking with [facility] MDs
--- NOTE | 2020-07-20 05:02 | PC.NURSE ---
Dr. Valenzuela accepted pt at [facility]
--- NOTE | 2020-07-20 05:18 | PC.NURSE ---
called and spoke with Hali Urrutia pts daughter in law to update family on pt condition
[2020-07-20 05:30] VITALS: BP 172/73; PULSE 84; RESP 17; O2SAT 96
[2020-07-20 06:06] VITALS: BP 181/89; PULSE 88; RESP 16; TEMP 36.7; O2SAT 96
[2020-07-20 09:20] LABS: POC Glucose,Bedside 144 (70-110)
== END 2020-07-20 06:09 | disposition short-term general hospital (02) ==
PROVIDERS: Emergency Provider Emergency Medicine; PCP Family Medicine
DX: S14.129A Central cord syndrome at unspecified level of cervical spinal cord, initial encounter (principal); W01.0XXA Fall on same level from slipping, tripping and stumbling without subsequent striking against object, initial encounter; Y92.29 Other specified public building as the place of occurrence of the external cause; E11.9 Type 2 diabetes mellitus without complications; E78.5 Hyperlipidemia, unspecified; I10 Essential (primary) hypertension; E03.9 Hypothyroidism, unspecified; Z79.899 Other long term (current) drug therapy
CPT/HCPCS: 70450; 71045; 72125; 72128; 72131; 72170; 82962; 99284

== ENCOUNTER 2020-11-04 11:32 | Outpatient (CLI) | payer MEDICARE, OTHER, SELFPAY ==
[2020-11-04] VITALS (8 sets, daily range): BP systolic 141–151; BP diastolic 48–56; PULSE 57–62; RESP 18–20; TEMP 36.8–37; O2SAT 93–96
== END 2020-11-04 15:00 | disposition home or self-care (01) ==
PROVIDERS: PCP Family Medicine; Visit Provider Family Medicine
DX: U07.1 COVID-19 (principal)
CPT/HCPCS: 96365

== ENCOUNTER → 2020-11-18 16:25 | Outpatient (CLI) | payer MEDICARE, OTHER, SELFPAY ==
[2020-11-18 16:40] LABS: Microscopic, Urine URINE MICROSCOPIC (MICROSCOPIC)
[2020-11-18 19:10] LABS: Appearance,Urine CLEAR (Clear); Bilirubin,Urine Negative (Negative); Blood, Urine 2+ (Negative); Color,Urine YELLOW (Yellow); Glucose,Urine (UA) Negative (Negative); Ketones,Urine Negative (Negative); Leukocyte Esterase,Urine 3+ (Negative); Nitrate,Urine POSITIVE (Negative); PH,Urine 8.5 (5.0-8.5); Protein,Urine Negative (Negative); Urobilinogen,Urine 0.2 EU/dl (0.2)
[2020-11-18 19:26] LABS: Amorphous Sediment,Urine 4+ /lpf; Bacteria,Urine 2+ /lpf; WBC,Urine 20-50 #/hpf (0-3)
== END ==
PROVIDERS: Visit Provider Family Medicine
DX: N39.0 Urinary tract infection, site not specified (principal)
CPT/HCPCS: 81001; 87086; 87088; 87186

== ENCOUNTER → 2020-11-25 08:19 | Outpatient (CLI) | payer MEDICARE, OTHER, SELFPAY ==
--- NOTE | 2020-11-25 08:39 | XR_ITS ---
PROCEDURE: XR SHOULDER LT MIN 2V CLINICAL INDICATION: LT shoulder pain COMPARISON: CR [id number] [id number] VIEWS from 07/31/2013 FINDINGS: There is an old fracture of the neck of the humerus with bony sclerosis and callus formation. Bony hypertrophic changes are also present. There is good alignment. Osteoarthritic changes are present at the glenohumeral joint. 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 There is an old fracture of the right 2nd rib. 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 Dictated by: Chris Jha MD 11/25/2020 17:01 Chris Jha MD in [place] 11/25/2020 17:01
== END ==
PROVIDERS: PCP Family Medicine; Visit Provider Orthopaedic Surgery
DX: M25.512 Pain in left shoulder (principal)
CPT/HCPCS: 73030

== ENCOUNTER → 2020-12-14 07:29 | Outpatient (CLI) | payer MEDICARE, OTHER, SELFPAY ==
--- NOTE | 2020-12-14 | CA_ITS ---
APPROVED REPORT Exam: Pharmacologic Technologist: Ophelia Corbett Ht: 5 ft 5 in Wt: 220 lbs BSA: 2.06 m2 HR: 64 bpm BP: 166/71 mmHg Indications: Abnormal ekg Medical History Medications: Omeprazole,,,,, Levothyroxine,,,,, Furosemide (LASIX),,,,, Pravastatin,,,,, Ferrous sulfate,,,,, Vitamin B12,,,,, Vitamin D3,,,,, Ropinirole,,,,, FeNOfibrate,,,,, LanTUS,,,,, Fluoxetine,,,,, DilTiazem,,,,, Stress Test Details Test: LEXISCAN HR Resting HR: 64 bpm Max Heart Rate (APMHR): 139.320793 bpm Max HR Achieved: 76 bpm Target HR (85% APMHR): 118.302313 bpm % of APMHR: 54.68 Recovery HR: 70 bpm BP Resting BP: 166.0/71.0 mmHg Max BP: 166.0/71.0 mmHg Recovery BP: 160.0/69.0 mmHg ECG Resting ECG: Normal sinus rhythm, cannot rule out old anterior KS, PVC Clinical Exercise duration: 04:00 min Highest Stage Achieved: Stress ECG Conclusion Symptoms: Shortness of air, mild stomach discomfort, malaise. No chest pain. Arrhythmias/Ectopy: Occasional PVC ST-T Changes: No significant changes. Conclusion: Unremarkable Lexiscan stress. Myoview images reported separately. Electronically signed by : Randy Culver, 12/15/2020 11:01:15
--- NOTE | 2020-12-14 07:30 | NM_ITS ---
APPROVED REPORT Exam: Nuclear Stress Test Indication: Abnormal EKG, HTN, DM, High cholesterol, Family history Patient Location: Outpatient Stress Tech: Ophelia Corbett AL Tech:Alexandra Kerns, ARRT, RT (R)(N) Ht: 5 ft 5 in Wt: 205 lbs Bra Size: 48C HR: 64 bpm BP: 166/71 mmHg BSA: 2.00 m2 BMI: 34.1 History: Abnormal EKG, HTN, DM, High cholesterol, Family history Procedure: Patient received a 0.4 mg of intravenous Lexiscan, resting heart rate 64 bpm, resting blood pressure 166/71 mmHg, with Lexiscan maximum heart rate achived was 71 bpm which is Less than 85 % of the maximum predicted heart rate and blood pressure was 159/63 mmHg. With Lexiscan, patient denied any complaint of chest pain. Electrocardiogram Resting electrocardiogram showed sinus rhythm, with Lexiscan there is less than 1.[address] segment depression noted from the baseline EKG. Cardiac Stress and Resting SPECT Images: Cardiac Stress and Resting SPECT images were obtained using technetium 99m Myoview 32.2 mCi stress and 10.24 mCi at rest. Unable to do Prone imaging due to patient having bilateral fractured shoulders. Gated SPECT for analysis of segmental wall motion and calculation of the ejection fraction also done. Cardiac stress and resting SPECT images show uniform myocardial activity without segmental perfusion abnormality, computer derived ejection fraction is over 65% with no regional wall motion abnormality, right ventricle is normal size and contractility, there is transient ischemic dilatation of the left ventricle seen, raising the concerns for presence of balanced ischemia. Conclusion: 1. The EKG portion of the Lexiscan Myoview is nondiagnostic. 2. No scintigraphic evidence of reversible ischemia seen, computer derived ejection fraction is over 65% with no regional wall motion abnormality, right ventricle is normal size and contractility. There is transient ischemic dilatation of the left ventricle seen, raising the concerns for presence of balanced ischemia. 3. Abnormal Lexiscan Myoview study. Electronically signed by : Randy Culver, 12/15/2020 12:32:27
--- NOTE | 2020-12-14 08:28 | CA_ITS ---
APPROVED REPORT EXAM: Comprehensive 2D, Doppler, and color-flow Echocardiogram Cement Truck Driver: Alexia Reis RVT Ht: 5 ft 5 in Wt: 220lbs BSA: 2.06 BP: 127/50 mmHg Indications: PRE-OP, ABN EKG,DM,OBESTIY,HTN, HLD TDS-PT HAS MILY SHOULDER FRACTURES,SCANNED FLAT ON BACK 2D Dimensions LVOT 1.89 cm (M/F) 1.5-2.5 LA Volume 19.70 mL LA Volume Index 9.56 mL/m2 (M/F) 16-34 M-Mode Dimensions RVDd 2.97 cm (0.9-2.6) LA Diam 4.36 cm (1.9-4.0) LVDd 3.86 cm (3.5-5.7) Ao Diam 2.52 cm (2.0-3.7) LVDs 2.45 cm (3.5-5.7) IVSd 1.37 cm (0.6-1.1) PWd 0.84 cm (0.6-1.1) EF (Teich) 67.00% FS 36.50% EDV (Teich) 64.30 mL ESV (Teich) 21.20 mL LV Diastology E Decel Time 320.00 (160-240 msec) E/A Ratio 1.0 MED E' 4.80 (< 7 cm/sec) E'/MED E' Ratio 23.92 (>14) LAT E' 9.90 (<10 cm/sec) E/LAT E' Ratio 11.60 (>14) Aortic Valve LVOT Max 135.00 (70-110 cm/s) LVOT VTI 32.13 cm AoV Peak Manoj. 263.00 (50-130 cm/s) AO Peak GR. 27.70 mmHg AO Mean GR. 14.20 (<5 mmHg) AO VTI 54.69 (18-25 cm) WILMAR (VTI) 1.65 (2.5-4.5 cm2) Mitral Valve MV E Max Manoj. 115.00 (40-130 cm/s) MV A Velocity 117.00 (40-130 cm/s) E/A Ratio 0.98 MV Decel. Time 320.00 (160-240 ms) MV PHT 94.00 ms Pulmonary Valve PV Peak Velocity 122.00 (50-150 cm/s) Tricuspid Valve TR P. Velocity 291.00 cm/s RAP Estimate 10.00 mmHg RVSP 43.80 mmHg Left Ventricle Left atrium is moderately enlarged, left ventricle is normal size, mild concentric left ventricular hypertrophy, visually estimated ejection fraction 55% with no regional wall motion abnormality, grade 1 diastolic dysfunction seen with tissue Doppler evidence of raise left atrial pressure. Right Ventricle Right atrium and right ventricle mildly enlarged with normal contractility. Aortic Valve Aortic valve is thickened and calcified, mean gradient across valve is 15 mmHg, valve area is 1.6 cm??? represents mild aortic stenosis. Mitral Valve Mitral valve has mitral calcification, there is no mitral stenosis, there is mild mitral regurgitation. Tricuspid Valve Tricuspid grossly normal, there is trace tricuspid regurgitation. Tricuspid regurgitation jet velocity is inadequate for calculation of the right ventricular systolic pressure. Pulmonic Valve Pulmonic valve is poorly visualized. Great Vessels Aortic root is normal size. Pericardium No significant pericardial effusion noted. Conclusion 1. Biatrial enlargement, normal left ventricular size, mild concentric left ventricular hypertrophy, visually estimated ejection fraction 55% with no regional wall motion abnormality, grade 1 diastolic dysfunction seen with tissue Doppler evidence of raise left atrial pressure. 2. Thickened and calcified aortic valve with mild aortic stenosis, valve area is 1.6 cm???, there is no aortic insufficiency. 3. Mild mitral and trace tricuspid regurgitation. 4. No significant pericardial effusion noted. Electronically signed by : Randy Culver, 12/15/2020 14:53:45
--- NOTE | 2020-12-14 09:11 | HMH.ITSHM ---
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 []SPIRONOLACTONE ROPINIROLE PRAVASTATIN OXYCODONE OMEPRAZOLE LEVOTHYROXINE INSULIN IBANDRONATE FUROSEMIDE FLUOXETINE FERROUS SULFATE FENOFIBRATE DILTIAZEM VITAMIN B12 VITAMIN D3 CETIRIZINE CARVEDILOL ASA VITAMIN C
== END ==
PROVIDERS: PCP Family Medicine; Visit Provider Urology
DX: E11.9 Type 2 diabetes mellitus without complications (principal); E78.5 Hyperlipidemia, unspecified; I10 Essential (primary) hypertension; R94.31 Abnormal electrocardiogram [ECG] [EKG]; Z01.810 Encounter for preprocedural cardiovascular examination; Z86.718 Personal history of other venous thrombosis and embolism; Z97.8 Presence of other specified devices; Z79.4 Long term (current) use of insulin
CPT/HCPCS: 78452; 93017; 93306; A9502; J2785

== ENCOUNTER → 2020-12-19 11:02 | Outpatient (CLI) | payer MEDICARE, OTHER, SELFPAY ==
[2020-12-19 12:00] LABS: Basophils % 0.5 % (0.1-2.0); Eosinophils # 0.1 K/mm3 (0.0-0.4); Eosinophils % 1.3 % (0.1-12.0); Hematocrit 41.9 % (37.0-47.0); Hemoglobin 13.4 g/dL (12.2-16.2); Lymphocytes # 2.5 K/mm3 (0.7-4.5); Lymphocytes % 30.7 % (10-50); Mean Corpuscular HGB Conc 31.9 g/dL (31.8-35.4); Mean Corpuscular Hemoglobin 29.5 pg (27.0-31.2); Mean Corpuscular Volume 92.5 fl (81-99); Monocytes # 0.6 K/mm3 (0.1-1.0); Monocytes % 7.6 % (1.7-9.3); Neutrophils # 4.9 K/mm3 (1.8-7.8); Platelet Count 328 K/mm3 (142-424); Red Blood Count 4.52 M/mm3 (4.20-5.40); Red Cell Distribution Width 14.5 % (11.5-17.5); White Blood Count 8.2 K/mm3 (4.8-10.8)
[2020-12-19 12:37] LABS: Anion Gap 12.2 mEq/L (5-15); Blood Urea Nitrogen 18 mg/dl (7-17); Calcium 9.9 mg/dl (8.4-10.2); Carbon Dioxide 26 mmol/L (22.0-30.0); Chloride 107 mmol/L (98-107); Estimated Glomerular Filt Rate 53 ml/min (>60); GFR (African American) 64 ML/MIN (>60); Glucose 129 mg/dl (74-100); Potassium 4.2 mmoL/L (3.5-5.1); Sodium 141 mmol/L (136-145)
== END ==
PROVIDERS: PCP Family Medicine; Visit Provider Physician Assistant
DX: R06.00 Dyspnea, unspecified (principal); I10 Essential (primary) hypertension; R94.39 Abnormal result of other cardiovascular function study; Z01.810 Encounter for preprocedural cardiovascular examination; Z20.822 Contact with and (suspected) exposure to COVID-19
CPT/HCPCS: 80048; 85025; U0003

== ENCOUNTER 2020-12-22 08:45 | Day surgery (SDC) | payer MEDICARE, OTHER, SELFPAY ==
[2020-12-22] VITALS (18 sets, daily range): BP systolic 123–179; BP diastolic 64–100; PULSE 59–82; RESP 12–18; TEMP 36.9; O2SAT 92–99; BMI 34.1
--- NOTE | 2020-12-22 07:18 | IR_ITS ---
APPROVED REPORT Patient Location: Outpatient Psych Assistant: EDDIE Valdez RT (R) PROCEDURES Left heart catheterization Left ventriculogram Selective coronary angiogram Drug-eluting stent deployment to the proximal LAD extending into the mid LAD Drug-eluting stent deployment into a large first diagonal artery in a bifurcating manner INDICATION High risk abnormal Myoview, Coronary artery disease, Preoperative evaluation Informed consent was obtained prior to the procedure. COMPLICATIONS None Estimated Blood Loss: Less than 10 mls TECHNIQUE One percent lidocaine used to anesthetize the right anterior aspect of the wrist. The right radial artery was accessed via the Seldinger technique. A 6 Danish sheath was placed in the right radial artery. 2.5 mg of verapamil, 800 mcg of nitroglycerin, 1mg Lidocaine and 5000 U Heparin were given through the arterial sheath. The Poppa catheter was also used to perform left heart catheterization, left ventriculogram and selective coronary angiogram. At the end the diagnostic procedure therapeutic heparin was administered giving a therapeutic ACT. A Choice PT wire was placed into the first diagonal artery and a 3 mm x 26 mm resolute [place] stent was deployed at 16 doug reducing the severe stenosis to 0%. An additional Choice PT extra-support wire was then placed into the LAD proper and a 2.5 x 20 mm balloon was deployed 3 times to open the struts going into the LAD and predilate the LAD stenosis. Following this a 2.5 x 26 mm resolute Julián stent was then placed in the ostial LAD extending into the LAD proper through the struts of the previously deployed stent. This was deployed at 16 doug. The balloon was removed and a 3 mm x 6 mm noncompliant balloon was deployed in the LAD at the bifurcation of the diagonal artery stent at 16 doug and then pulled back and deployed at 20 doug in the ostial segment of the LAD. Excellent angiographic results were obtained with ADONAY-3 flow down both the LAD and the diagonal artery before and after the procedure. At the end of the procedure the apparatus was removed the sheath was removed good hemostasis was achieved using TR banding patient was transferred to the postop holding in stable condition ANGIOGRAPHIC RESULTS The left main artery Normal The left anterior descending artery Has a proximal tubular 50% stenosis followed by a proximal stenosis distal to a very large first diagonal artery yet still proximal to the first septal oven laborer. The stenosis is 70% followed by an additional 80% followed by a 50% distal to the first diagonal artery. The remaining LAD has mild 20% mid vessel stenoses. 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 followed by a 70% stenosis at the end of the procedure the LAD first diagonal artery was widely patent with excellent ADONAY-3 flow The circumflex artery Is a nondominant vessel with mild proximal 20 to 30% stenosis The right coronary artery Is a dominant vessel with proximal and mid vessel diffuse 30% stenosis The CANELA ventriculogram reveals Hyperdynamic 70% The left ventricular end-diastolic pressure 20 mmHg IMPRESSION Severe coronary disease as described above Successful stenting in the proximal to mid LAD as described above with bifurcating stents from the proximal LAD extending into a large first diagonal artery Hyperdynamic ventricle Elevated LVEDP PLAN 1. Brilinta and aspirin 2. Avoidance of tobacco products 3. Cardiac rehabilitation 4. Patient needs to have shoulder surgery postponed for at least 6 weeks if possible and preferably 3 months 5. LDL less than 55 6. Treatment of diastolic dysfunction Electronically signed by : Michael Alfred
[2020-12-22 12:11] LABS: CATHL Activated Clotting Time > 400 SEC (74-125)
--- NOTE | 2020-12-22 13:45 | HMH.PHACLD ---
Dewayne Moctezuma has received discharge medication counseling on the following medications: NEW MEDICATIONS: BRILINTA, LISINOPRIL CONTINUED MEDICATIONS: ASPIRIN, CARVEDILOL, PRAVASTATIN
== END 2020-12-22 13:56 | disposition home or self-care (01) ==
LOC: CATHLAB 08:46
PROVIDERS: PCP Family Medicine; Visit Provider Internal Medicine
DX: E11.69 Type 2 diabetes mellitus with other specified complication (principal); I10 Essential (primary) hypertension; R06.00 Dyspnea, unspecified; R94.39 Abnormal result of other cardiovascular function study; Z01.810 Encounter for preprocedural cardiovascular examination; Z79.4 Long term (current) use of insulin; E11.9 Type 2 diabetes mellitus without complications
CPT/HCPCS: 85347; 92928; 93458; 99152; 99153; C1725; C1769; C1876; C9600; J1644; Q9967

== ENCOUNTER 2021-01-02 13:36 | Outpatient (RCR) | payer MEDICARE, OTHER, SELFPAY | END 2021-04-07 11:00 | disposition home or self-care (01) | LOC: PT 13:36 | PROVIDERS: Visit Provider Internal Medicine | DX: Z95.5 Presence of coronary angioplasty implant and graft (principal) ==

== ENCOUNTER 2021-02-03 09:40 | Outpatient (CLI) | payer MEDICARE, OTHER, SELFPAY ==
[2021-02-03] VITALS (20 sets, daily range): BP systolic 92–158; BP diastolic 38–72; PULSE 55–67; RESP 16–18; TEMP 36–36.2; O2SAT 94–98; BMI 34.2
[2021-02-03 10:25] LABS: Reticulocyte % (Auto) 5.4 % (0.9-3.2)
--- NOTE | 2021-02-03 10:55 | PC.NURSE ---
1055-collected clean catch urine for ua;sent to lab.
[2021-02-03 10:58] LABS: Total Iron Binding Capacity 259 ug/dL (265-497)
[2021-02-03 11:00] LABS: Iron 128 ug/dL (37-170)
[2021-02-03 11:07] LABS: Microscopic, Urine URINE MICROSCOPIC (MICROSCOPIC)
[2021-02-03 11:11] LABS: Appearance,Urine CLEAR (Clear); Bilirubin,Urine Negative (Negative); Blood, Urine 2+ (Negative); Color,Urine YELLOW (Yellow); Glucose,Urine (UA) Negative (Negative); Ketones,Urine Negative (Negative); Leukocyte Esterase,Urine TRACE (Negative); Nitrate,Urine Negative (Negative); PH,Urine 6.5 (5.0-8.5); Protein,Urine Negative (Negative); Specific Gravity, Urine 1.015 (1.005-1.030); Urobilinogen,Urine 0.2 EU/dl (0.2)
[2021-02-03 11:27] LABS: Basophils % 0.5 % (0.1-2.0); Eosinophils % 1.6 % (0.1-12.0); Hematocrit 29.2 % (37.0-47.0); Hemoglobin 9.4 g/dL (12.2-16.2); Mean Corpuscular HGB Conc 32.1 g/dL (31.8-35.4); Mean Corpuscular Hemoglobin 30.2 pg (27.0-31.2); Mean Platelet Volume 7.7 fl (7.4-10.4); Monocytes % 8.9 % (1.7-9.3); Neutrophils % 60.5 % (37.0-80.0); Platelet Count 387 K/mm3 (142-424); Red Blood Count 3.11 M/mm3 (4.20-5.40); White Blood Count 6.6 K/mm3 (4.8-10.8)
[2021-02-03 11:28] LABS: Eosinophils # 0.1 K/mm3 (0.0-0.4); Lymphocytes # 1.9 K/mm3 (0.7-4.5); Lymphocytes % 28.6 % (10-50); Monocytes # 0.6 K/mm3 (0.1-1.0)
[2021-02-03 11:31] LABS: Vitamin B12 922 pg/mL (239-931)
[2021-02-03 15:22] LABS: Occult Blood,Stool Positive (Negative)
[2021-02-03 16:55] LABS: Hematocrit 38.7 % (37.0-47.0)
[2021-02-03 16:57] LABS: Hemoglobin 12.7 g/dL (12.2-16.2)
== END 2021-02-03 16:57 | disposition home or self-care (01) ==
LOC: INF 09:51
PROVIDERS: PCP Family Medicine; Visit Provider Family Medicine
DX: D64.9 Anemia, unspecified (principal)
CPT/HCPCS: 36415; 36430; 81001; 82272; 82607; 82746; 83540; 83550; 85014; 85018; 85025; 85044; 86850; G0328; P9016

== ENCOUNTER 2021-02-04 07:26 | Observation (INO) | payer MEDICARE, OTHER, SELFPAY ==
[2021-02-04] VITALS (16 sets, daily range): BP systolic 112–159; BP diastolic 51–76; PULSE 60–72; RESP 14–18; TEMP 36.6–37; O2SAT 93–99; BMI 33.9; BMI 35.2; BMI 32.6
--- NOTE | 2021-02-04 07:30 | ECG_ITS ---
APPROVED REPORT Exam: Resting ECG HR:66 bpm ECG Measurements Heart Rate 66 AXES OK 198 P 42 QRSd 98 QRS -41 QT 460 T -24 QTc 482 Conclusion Normal sinus rhythm with sinus arrhythmia Left axis deviation Incomplete right bundle branch block Cannot rule out Anterior infarct, age undetermined Abnormal ECG Electronically signed by : John Rosado, 02/08/2021 22:20:41
--- NOTE | 2021-02-04 07:48 | XR_ITS ---
PROCEDURE INFORMATION: Exam: XR Chest Exam date and time: 02/04/2021 7:48 AM Age: 80 years old Clinical indication: Other: AMS TECHNIQUE: Imaging protocol: XR of the chest. Views: 1 view. COMPARISON: CR XR CHEST AP 07/20/2020 4:18 AM FINDINGS: Lungs: There are mild perihilar and basilar infiltrates. Pleural spaces: No pleural effusion or pneumothorax is seen. Heart/Mediastinum: Mild cardiomegaly which has improved since the previous exam. Vasculature: There is a 1.5 cm eggshell calcification in the left upper quadrant of the abdomen which may be a splenic artery aneurysm. This has not changed significantly since the prior exam. Bones/joints: The bones are demineralized with advanced osteoarthritis in the glenohumeral joints (left greater than right). The bones are demineralized. IMPRESSION: 1. Hypoinflation with mild cardiomegaly and mild perihilar/basilar interstitial infiltrates. 2. 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
--- NOTE | 2021-02-04 07:59 | HMH.EDGENADL ---
ED Disposition Clinical Impression: Encephalopathy, Somnolence Disposition: Admitted as Observation Condition on Discharge: Fair Instructions: DI for Altered Mental Status Referrals: Harry Cotter MD [Primary Care Provider] - Time of Disposition: 09:55 - Critical Care Critical Care Time: No Attestation: On 02/04/21, the high probability of a clinically significant, sudden or life threatening deterioration of the following system(s) required my full and direct attention, intervention and personal management. The time I documented below is in addition to time spent performing reported procedures but includes the following listed in this critical care notation. Medical Decision Making - Medical Records Medical records reviewed: Yes: I reviewed the patient's medical records. - Wojciech Inquiry Pt receiving controlled substance: No Vital Signs: 02/04/21 07:27 02/04/21 08:26 02/04/21 08:30 Temperature 98.6 F Temperature Source Oral Pulse Rate 69 68 Pulse Rate [Radial] 67 Respiratory Rate 16 18 16 Blood Pressure 132/51 L 140/54 L Blood Pressure [Right Arm] 135/52 L Blood Pressure Mean 90 Blood Pressure Mean [Right Arm] 79 Blood Pressure Position [Right Arm] Sitting 02 Sat by Pulse Oximetry 98 98 97 Oxygen Delivery Method Room Air - Lab Data Lab results reviewed: Yes: I reviewed the patient's lab results. Lab Results 02/04/21 07:35: Chlamy pneumoniae PCR Not detected, Adenovirus (PCR) Not detected, B. pertussis DNA (PCR) Not detected, Coronavirus OC43 (PCR) Not detected, Coronavirus HKU1 (PCR) Not detected, Coronavirus 229E (PCR) Not detected, SARS-CoV-2 (PCR) Not detected, Coronavirus NL63 (PCR) Not detected, Human Metapneumovir PCR Not detected, Influenza A (H1) PCR Not detected, Influ A (H1N1/09) PCR Not detected, Influenza A (H3) PCR Not detected, Influenza Type A (PCR) Not detected, Influenza Type B (PCR) Not detected, M. pneumoniae (PCR) Not detected, Parainfluenza 1 (PCR) Not detected, Parainfluenza 2 (PCR) Not detected, Parainfluenza 3 (PCR) Not detected, Parainfluenza 4 (PCR) Not detected, RSV (PCR) Not detected, Entero/Rhino (PCR) Not detected 02/04/21 07:50: WBC 6.6, RBC 3.96 L D, Hgb 11.5 L, Hct 36.3 L, MCV 91.7, MCH 29.0, MCHC 31.6 L, RDW 15.5, Plt Count 343, MPV 7.6, Neut % (Auto) 61.0, Lymph % (Auto) 29.0, [place] % (Auto) 7.8, Eos % (Auto) 1.7, Baso % (Auto) 0.5, Neut # (Auto) 4.0, Lymph # (Auto) 1.9, [place] # (Auto) 0.5, Eos # (Auto) 0.1, Baso # (Auto) 0.0 02/04/21 07:50: Sodium 143, Potassium 3.6, Chloride 112 H, Carbon Dioxide 28, Anion Gap 6.6, BUN 27 H, Creatinine 1.30 H, Estimated Creat Clear 53, Estimated GFR 39 L, Est GFR ( Amer) 48 L, Glucose 179 H, Calcium 9.6, Total Bilirubin 0.6, AST 33, ALT 20, Alkaline Phosphatase 124, Total Protein 6.6, Albumin 3.3 L, Globulin 3.3 H, Albumin/Globulin Ratio 1.0 L 02/04/21 07:50: Lactate 1.3 Result diagrams: 02/04/21 07:50 02/04/21 07:50 Orders (Tests/Meds): ED MEDICATIONS Generic Name Dose Route Start Last Admin Trade Name Freq PRN Reason Stop Dose Admin Sodium Chloride 1,000 mls @ 500 mls/hr 02/04/21 09:15 Sod Chlor 0.9% 1000ml Bag IV 02/04/21 11:14 .Q2H [facility] ORDERS Category Date Time Status Blood Culture Stat Micro 02/04/21 07:50 Received - Radiology Data #1 Image(s): Chest Image Reviewed: Yes I reviewed the patient's radiology results, Yes I reviewed the patient's radiology image Preliminary Findings: Abnormal Unremarkable chest with possible splenic artery aneurysm. - CT Data CT Scan: Head Time Received: 09:[address] Reviewed: Yes: I have reviewed the patient's CT results, I have viewed the radiologist's interpretation Preliminary Findings: Normal/NAD Findings Narrative: Chronic age-related changes without acute finding - ECG Data Tracing #1 Normal sinus rhythm, 66 bpm, no ST elevation or depression, normal intervals. Partial right bundle branch block. ECG initial im
[2021-02-04 08:02] LABS: Adenovirus,PCR Not Detected (NotDetected); Bordetella Pertussis Not Detected (NotDetected); Chlamydophila Pneumoniae, PCR Not Detected (NotDetected); Coronavirus 19, PCR Not Detected (NotDetected); Coronavirus 229E Not Detected (NotDetected); Coronavirus NL63 Not Detected (NotDetected); Coronavirus OC43 Not Detected (NotDetected); Coronovirus HKU1,PCR Not Detected (NotDetected); Human Metapneumovirus Not Detected (NotDetected); Influenza A, PCR Not Detected (NotDetected); Influenza AH1, 2009 Not Detected (NotDetected); Influenza AH1, PCR Not Detected (NotDetected); Influenza AH3,PCR Not Detected (NotDetected); Influenza B, PCR Not Detected (NotDetected); Mycoplasma Pneumoniae, PCR Not Detected (NotDetected); Parainfluenza 1, PCR Not Detected (NotDetected); Parainfluenza 2, PCR Not Detected (NotDetected); Parainfluenza 3, PCR Not Detected (NotDetected); Parainfluenza 4, PCR Not Detected (NotDetected); Respiratory Syncytial Virus Not Detected (NotDetected); Rhinovirus/Enterovirus Not Detected (NotDetected)
[2021-02-04 08:06] LABS: Basophils % 0.5 % (0.1-2.0); Eosinophils # 0.1 K/mm3 (0.0-0.4); Eosinophils % 1.7 % (0.1-12.0); Hematocrit 36.3 % (37.0-47.0); Hemoglobin 11.5 g/dL (12.2-16.2); Lymphocytes # 1.9 K/mm3 (0.7-4.5); Mean Corpuscular HGB Conc 31.6 g/dL (31.8-35.4); Mean Corpuscular Volume 91.7 fl (81-99); Mean Platelet Volume 7.6 fl (7.4-10.4); Monocytes # 0.5 K/mm3 (0.1-1.0); Monocytes % 7.8 % (1.7-9.3); Platelet Count 343 K/mm3 (142-424); Red Blood Count 3.96 M/mm3 (4.20-5.40); Red Cell Distribution Width 15.5 % (11.5-17.5); White Blood Count 6.6 K/mm3 (4.8-10.8)
[2021-02-04 08:15] LABS: Alanine Aminotransferase 20 U/L (12-78); Albumin Level 3.3 g/dl (3.5-5.0); Alkaline Phosphatase 124 U/L (38-126); Anion Gap 6.6 mEq/L (5-15); Aspartate Amino Transferase 33 U/L (14-36); Bilirubin,Total 0.6 mg/dl (0.2-1.3); Blood Urea Nitrogen 27 mg/dl (7-17); Calcium 9.6 mg/dl (8.4-10.2); Carbon Dioxide 28 mmol/L (22.0-30.0); Chloride 112 mmol/L (98-107); Creatinine Clearance Estimated 53 mL/min (50-200); Estimated Glomerular Filt Rate 39 ml/min (>60); GFR (African American) 48 ML/MIN (>60); Globulin 3.3 g/dL (1.3-3.2); Glucose 179 mg/dl (74-100); Lactic Acid 1.3 mmol/L (0.7-2.1); Potassium 3.6 mmoL/L (3.5-5.1); Sodium 143 mmol/L (136-145); Total Protein,Serum 6.6 g/dl (6.3-8.2)
--- NOTE | 2021-02-04 08:33 | CT_ITS ---
PROCEDURE INFORMATION: Exam: CT Head Without Contrast Exam date and time: 02/04/2021 8:33 AM Age: 80 years old Clinical indication: Altered mental status/memory loss; Patient HX: AMS; Additional info: Encephalopathy TECHNIQUE: Imaging protocol: Computed tomography of the head without contrast. Radiation optimization: All CT scans at this facility use at least one of these dose optimization techniques: automated exposure control; mA and/or kV adjustment per patient size (includes targeted exams where dose is matched to clinical indication); or iterative reconstruction. COMPARISON: CT HEAD/BRAIN WO CON 07/20/2020 3:48 AM FINDINGS: Brain: Prominent sulci. Patchy hypodensity of the cerebral white matter which are nonspecific but likely secondary to microangiopathic changes. Cerebral ventricles: The ventricles are prominent secondary to diffuse volume loss/atrophy. Bones/joints: Unremarkable. No acute fracture. Paranasal sinuses: Mild mucoperiosteal thickening of the paranasal sinuses. Mastoid air cells: Visualized mastoid air cells are well aerated. Soft tissues: Unremarkable. IMPRESSION: Chronic age related changes but no evidence of acute intracranial pathology.
--- NOTE | 2021-02-04 09:04 | PC.NURSE ---
pt to ct
--- NOTE | 2021-02-04 09:39 | PC.NURSE ---
MARINA HARPER speaking with Dr. Manzo
--- NOTE | 2021-02-04 09:44 | PC.NURSE ---
Called house for bed assignment, pt will need to be boarded for now
[2021-02-04 10:37] LABS: T4 (Thyroxine) > 24.9 ug/dl (5.53-11.0)
[2021-02-04 10:41] LABS: Thyroid Stimulating Hormone 0.09 uIU/mL (0.465-4.68)
--- NOTE | 2021-02-04 11:47 | PC.NURSE ---
fsbs 150
--- NOTE | 2021-02-04 11:49 | PC.NURSE ---
warehouse delivery manager states they do have pending discharges on second floor, states she is going to call staff and check on status of discharges and let us know.
[2021-02-04 11:52] LABS: POC Glucose,Bedside 150 (70-110)
--- NOTE | 2021-02-04 11:52 | PC.NURSE ---
supervisor hospitality house stated pt is assigned to a room, room should be ready soon
--- NOTE | 2021-02-04 12:06 | PC.NURSE ---
family at BS assisting pt with lunch
--- NOTE | 2021-02-04 12:30 | PC.NURSE ---
family and pt updated on plan of care
--- NOTE | 2021-02-04 12:35 | PC.NURSE ---
report called to floor
--- NOTE | 2021-02-04 13:00 | PC.NURSE ---
dr serrato at bedside
--- NOTE | 2021-02-04 13:12 | HMH.HP ---
*Admission Date: 02/04/21 *Chief complaint: Lethargy *History of present illness: Ms. Moctezuma is an 80-year-old white female with a history of ASCVD, type 2 diabetes mellitus, hypertension, and hypothyroidism who [facility] a [facility] after she suffered a fall with a cervical strain and bilateral humeral fractures. During recent preop evaluation for shoulder surgery, she had an abnormal cardiac work-up which resulted in a heart cath with findings of coronary artery disease and stent placement. Over the past 2 to 3 days, she has complained of weakness and dizziness at the [facility] with episodes of hypotension, nausea, and vomiting. I saw the patient at the [facility] and she appeared pale and labs indeed showed a hemoglobin of 8.1. [facility] was [facility] and received 2 units of packed red blood cells as an outpatient. Her iron and B12 levels were normal. Her reticulocyte count was elevated. This morning at the [facility] she was more lethargic and staff had difficulty keeping her awake. She was therefore transported back to the emergency room for reevaluation. Work-up in the ER showed normal vital signs. O2 sats are normal on room air. Her H&H is improved after the blood transfusion yesterday. CMP was remarkable only for slightly elevated creatinine of 1.3 above her normal of about 1.0. CT scan of the head showed nothing acute. Chest x-ray shows mild perihilar and bibasilar infiltrates. At the time of my examination she is lying comfortably on the stretcher. She arouses easily and has no complaints. Her son and [id number] are at the bedside and states she has not been eating or drinking very well. They state she called her sister this morning to tell her goodbye . [facility] History Medical History: Reports:: Coronary Artery Disease, Deep Vein Thrombosis, Diabetes Mellitus Type 2, Hyperlipidemia, Hypertension Denies:: Internal Pacemaker, Seizures *Have you ever received a pneumonia vaccine?: Yes *Have you received a flu vaccine this season?: Yes Other Medical History: Reports: Arthritis, Hypothyroidism Other Surgeries: Yes: Appendectomy, Cardiac Catheterization, Cholecystectomy, Colonoscopy, Coronary Stent, Hernia Repair, Hysterectomy-Total, Skin Cancer Excision, Other. No: Pacemaker - *Social History Smoking Status: Never smoker Alcohol Intake: never Alcohol Intake Frequency:: other Substance Use Type: denies use *Occupational Status:: retired Housing: [facility] Household Members: spouse, caregiver *Travel in the last 8 weeks: None Family Hx:: Cancer, Hypertension, Diabetes Review of Systems - Constitutional Reports daytime sleepiness, Denies body ache(s), Denies weight loss - Eyes Denies change in vision - ENT Denies abnormal hearing, Denies difficulty swallowing, Denies nasal congestion - *Cardiovascular Reports leg swelling, Reports lightheadedness, Denies chest pain, Denies shortness of breath, Denies rapid, pounding, or irregular heartbeat - *Respiratory Denies chest congestion, Denies cough, Denies coughing up blood - *Gastrointestinal Reports constipation, Reports heartburn, Denies abdominal pain, Denies bloating, Denies change in bowel habits - *Genitourinary Denies abnormal vaginal bleeding, Denies painful urination - *Musculoskeletal Reports stiffness (shoulders), Denies joint swelling - Integumentary/Breasts Denies hair loss, Denies itching, Denies rash - *Neurologic Denies confusion, Denies frequent falls, Denies memory loss - Psychiatric Reports change in appetite, Denies memory loss - Endocrine Denies cold intolerance, Denies flushing - Hematologic/Lymphatic Denies easy bleeding - Allergic/Immunologic Denies itchy eyes, Denies throat swelling Meds Home Medications Medication Instructions Recorded Confirmed Type aspirin 81 mg tablet,delayed 81 mg PO ONCE 02/10/18 02/04/21 History release
[2021-02-04 13:21] LABS: Benzodiazepines Screen,Urine Negative ng/ml (<200)
[2021-02-04 13:22] LABS: Amphetamine/Metha Screen,Urine Negative ng/ml (<1000); Barbiturates Screen,Urine Negative ng/ml (<200)
[2021-02-04 13:23] LABS: Cannabinoid Screen,Urine Negative ng/ml (<50)
[2021-02-04 13:24] LABS: Cocaine Screen,Urine Negative ng/ml (<300); Methadone Screen,Urine Negative ng/ml (<300)
[2021-02-04 13:25] LABS: Opiate Screen,Urine Negative ng/ml (<300); Phencyclidine Screen,Urine Negative ng/ml (<25)
--- NOTE | 2021-02-04 15:01 | PC.NURSE ---
PATIENT MEDICATION LIST UNDER DIRECTIONS IS CUT OFF, THIS RN PHONED PHARMACY WHICH SUGGESTED THAT THIS RN PHONE [facility] AND EXPLAIN THAT A COPY OF THE DIRECTIONS ARE NEEDED. THIS RN SPOKE WITH MIKAL, EXPLAINED THE SITUATION. PER MIKAL, SHE WILL FAX OVER A NEW COPY.
[2021-02-04 17:08] LABS: POC Glucose,Bedside 157 (70-110)
--- NOTE | 2021-02-04 19:11 | PC.NURSE ---
PATIENT'S REPORT FROM [facility] STATED THAT PATIENT WAS FULL CODE, EMERGENCY ROOM DOCTOR HAD PLACE PATIENT DNR. THIS RN SPOKE WITH SON, HE STATED THAT HE IS POA AND THAT HE NEEDS TO CHECK WITH HIS SISTER. PATIENT'S SON STATED TO LEAVE PATIENT FULL CODE AND THEY WILL ADDRESS IT ON 02/05/21.
[2021-02-04 21:43] LABS: POC Glucose,Bedside 164 (70-110)
--- NOTE | 2021-02-04 22:00 | PC.NURSE ---
Spoke with patient's son Jayson Urrutia power of mergers and acquisitions attorney for patient regarding patiient's code status. Son states that his mother's wish is to have any and all forms of medication, intubation chest compression and ventilation in the event of cardiac arrest.
[2021-02-05] VITALS (7 sets, daily range): BP systolic 115–142; BP diastolic 44–71; PULSE 61–72; RESP 16–20; TEMP 36.5–37; O2SAT 95–97; BMI 32.7
--- NOTE | 2021-02-05 05:01 | PC.NURSE ---
Patient admitted for Altered Mental Status and PNA. Patient has received 1 Abx on previous shift. Patient afebrile, not hypothermic, WBC's WDL. Patient is confused while awake and oriented to self. Patient had one vomitus with copious amounts of undigested food. This nurse witness to vomiting and patient was kept at 90 degrees and suction was applied to ensure patient did not aspirate. Administered Zofran per order and no other vomiting this shift. Patient slept most of the shift, fluids ordered at 75 ml of 0.45% NS with 20 mEq K++. Will continue to monitor for any acute changes..
[2021-02-05 06:04] LABS: POC Glucose,Bedside 137 (70-110)
[2021-02-05 07:37] LABS: Basophils % 0.5 % (0.1-2.0); Eosinophils # 0.1 K/mm3 (0.0-0.4); Hematocrit 33.6 % (37.0-47.0); Hemoglobin 11.1 g/dL (12.2-16.2); Lymphocytes # 2.5 K/mm3 (0.7-4.5); Lymphocytes % 37.7 % (10-50); Mean Corpuscular HGB Conc 33.1 g/dL (31.8-35.4); Mean Corpuscular Hemoglobin 30.1 pg (27.0-31.2); Mean Corpuscular Volume 90.8 fl (81-99); Mean Platelet Volume 8.3 fl (7.4-10.4); Monocytes # 0.5 K/mm3 (0.1-1.0); Monocytes % 7.5 % (1.7-9.3); Neutrophils # 3.4 K/mm3 (1.8-7.8); Neutrophils % 52.3 % (37.0-80.0); Platelet Count 350 K/mm3 (142-424); Red Cell Distribution Width 15.6 % (11.5-17.5); White Blood Count 6.6 K/mm3 (4.8-10.8)
[2021-02-05 07:44] LABS: Anion Gap 7.3 mEq/L (5-15); Blood Urea Nitrogen 26 mg/dl (7-17); Calcium 8.8 mg/dl (8.4-10.2); Carbon Dioxide 27 mmol/L (22.0-30.0); Chloride 113 mmol/L (98-107); Creatinine Clearance Estimated 48 mL/min (50-200); Estimated Glomerular Filt Rate 39 ml/min (>60); GFR (African American) 48 ML/MIN (>60); Glucose 145 mg/dl (74-100); Potassium 3.3 mmoL/L (3.5-5.1); Sodium 144 mmol/L (136-145)
--- NOTE | 2021-02-05 09:12 | HMH.ACPN2 ---
Internal Medicine - PN: Alba *Date: 02/05/21 *Time: 09:16 Interval history: She slept most of the night. She had an episode of nausea and vomiting around 5 AM this morning. At present time she is sitting up in bed eating breakfast and denies nausea. She is much more alert this morning. No abdominal pain. Exam Vital signs and Labs for Last 24 Hours: Temp Pulse Resp BP Pulse Ox 98.0 F 61 19 119/56 L 96 02/05/21 08:00 02/05/21 08:00 02/05/21 08:00 02/05/21 08:00 02/05/21 08:00 Laboratory Results - last 24 hr 02/04/21 07:00: TSH 0.09 L, Thyroxine (T4) > 24.9 H 02/04/21 07:35: Chlamy pneumoniae PCR Not detected, Adenovirus (PCR) Not detected, B. pertussis DNA (PCR) Not detected, Coronavirus OC43 (PCR) Not detected, Coronavirus HKU1 (PCR) Not detected, Coronavirus 229E (PCR) Not detected, SARS-CoV-2 (PCR) Not detected, Coronavirus NL63 (PCR) Not detected, Human Metapneumovir PCR Not detected, Influenza A (H1) PCR Not detected, Influ A (H1N1/09) PCR Not detected, Influenza A (H3) PCR Not detected, Influenza Type A (PCR) Not detected, Influenza Type B (PCR) Not detected, M. pneumoniae (PCR) Not detected, Parainfluenza 1 (PCR) Not detected, Parainfluenza 2 (PCR) Not detected, Parainfluenza 3 (PCR) Not detected, Parainfluenza 4 (PCR) Not detected, RSV (PCR) Not detected, Entero/Rhino (PCR) Not detected 02/04/21 07:35: Urine Opiates Screen Negative, Urine Methadone Screen Negative, Ur Barbituates Screen Negative, Ur Phencyclidine Scrn Negative, Ur Amphetamines Screen Negative, U Benzodiazepines Scrn Negative, Urine Cocaine Screen Negative, U Marijuana (THC) Screen Negative 02/04/21 11:45: POC Glucose 150 H 02/04/21 17:01: POC Glucose 157 H 02/04/21 21:22: POC Glucose 164 H 02/05/21 05:57: POC Glucose 137 H 02/05/21 07:24: WBC 6.6, RBC 3.70 L, Hgb 11.1 L, Hct 33.6 L, MCV 90.8, MCH 30.1, MCHC 33.1, RDW 15.6, Plt Count 350, MPV 8.3, Neut % (Auto) 52.3, Lymph % (Auto) 37.7, [place] % (Auto) 7.5, Eos % (Auto) 2.0, Baso % (Auto) 0.5, Neut # (Auto) 3.4, Lymph # (Auto) 2.5, [place] # (Auto) 0.5, Eos # (Auto) 0.1, Baso # (Auto) 0.0 02/05/21 07:24: Sodium 144, Potassium 3.3 L, Chloride 113 H, Carbon Dioxide 27, Anion Gap 7.3, BUN 26 H, Creatinine 1.30 H, Estimated Creat Clear 48, Estimated GFR 39 L, Est GFR ( Amer) 48 L, Glucose 145 H, Calcium 8.8 I & O for Last 24 hours: Intake & Output 02/02/21 02/03/21 02/04/21 02/05/21 11:59 11:59 11:59 11:59 Intake Total 990 / 990 Output Total 850 / 850 Balance 140 / 140 Weight 218 lb 196 lb 8 oz Microbiology Reports for the Last 24 Hours: Microbiology 02/04/21 07:35 Urine,Catheterized Urine Culture - Preliminary Gram Negative Rods Narrative: She is much more alert this morning and answers questions appropriately. Speech seems a bit dysarthric this morning. No other focal motor deficits. Color is normal. Lungs are clear anteriorly. Heart is regular. Abdomen is obese, soft, nondistended and nontender. Extremities with trace edema. Assessment and Plan (1) Pneumonia Status: Acute Category: Medical Code(s): J18.9 - Pneumonia, unspecified organism (2) Encephalopathy Status: Acute Category: Medical Code(s): G93.40 - Encephalopathy, unspecified (3) Somnolence Status: Acute Category: Medical Code(s): R40.0 - Somnolence (4) Hypothyroid Status: Acute Category: Medical Code(s): E03.9 - Hypothyroidism, unspecified (5) CAD (coronary artery disease) Status: Chronic Qualifiers: Coronary Disease-Associated Artery/Lesion type: [place] artery [place] vs. transplanted heart: [place] heart Associated angina: without angina Qualified Code(s): I25.10 - Atherosclerotic heart disease of [place] coronary artery without angina pectoris Category: Medical Code(s): I25.10 - Atherosclerotic heart disease of [place] coronary artery without angina pectoris (6) Diabetes mellitus Status: Chronic Qualifiers:
--- NOTE | 2021-02-05 10:03 | P.CONPHA_ITS ---
[facility] Pharmacy VTE Monitoring - Patient Demographics Admission date: 02/05/21 Report Date: 02/05/21 Time: 10:03 Allergies/Adverse Reactions: Patient Allergies Iodinated Contrast Media Allergy (Intermediate, Verified 01/02/21 13:15) naproxen [NAPROXEN] Allergy (Mild, Verified 01/02/21 13:15) Height: 1.65 m Weight: 89.131 kg Patient Problems: Current Active Problems Encephalopathy (Acute) Somnolence (Acute) Hypothyroid (Acute) Pneumonia (Acute) Renal insufficiency (Acute) Anemia (Acute) Heme positive stool (Acute) Hypokalemia (Acute) CAD (coronary artery disease) (Chronic) Diabetes mellitus (Chronic) Hypertension (Chronic) - VTE Risk Labs: VTE Related Lab Results Hgb 11.1 g/dL (12.2-16.2) L 02/05/21 07:24 Hct 33.6 % (37.0-47.0) L 02/05/21 07:24 Plt Count 350 K/mm3 (142-424) 02/05/21 07:24 BUN 26 mg/dl (7-17) H 02/05/21 07:24 Creatinine 1.30 mg/dl (0.52-1.04) H 02/05/21 07:24 Estimated Creat Clear 48 mL/min (50-200) 02/05/21 07:24 - Prophylaxis Types of VTE Prophylaxis: IPCS Knee High, Pharmacological Location of Applied Device: Not Applicable Pharmacologic Type: Enoxaparin (LOVENOX AND ICDS ORDERED)
[2021-02-05 11:59] LABS: POC Glucose,Bedside 259 (70-110)
[2021-02-05 17:12] LABS: POC Glucose,Bedside 136 (70-110)
--- NOTE | 2021-02-05 19:01 | PC.NURSE ---
Pt alert and oriented and able to make needs known, but does have some intermittent confusion and forgetfulness. VSS. RR even and unlabored. Remains on RA. Did have a bm this shift. S1,S2, BS x 4, Lungs cta, and cervantes cath in place and draining yellow urine. Meds given per mar. Did have episode x one of coughing this shift and has since then done well.
[2021-02-06] VITALS: BP 116/52; PULSE 60; RESP 18; TEMP 36.9; O2SAT 97
[2021-02-06 00:54] LABS: POC Glucose,Bedside 248 (70-110)
[2021-02-06 04:00] VITALS: BP 111/48; PULSE 66; RESP 19; TEMP 37; O2SAT 97
[2021-02-06 05:00] VITALS: BMI 34.0
[2021-02-06 06:41] LABS: Basophils # 0.1 K/mm3 (0-0.2); Basophils % 0.7 % (0.1-2.0); Eosinophils # 0.1 K/mm3 (0.0-0.4); Eosinophils % 1.9 % (0.1-12.0); Hematocrit 33.4 % (37.0-47.0); Hemoglobin 10.8 g/dL (12.2-16.2); Lymphocytes # 2.5 K/mm3 (0.7-4.5); Lymphocytes % 35.2 % (10-50); Mean Corpuscular HGB Conc 32.4 g/dL (31.8-35.4); Mean Corpuscular Hemoglobin 29.8 pg (27.0-31.2); Mean Corpuscular Volume 91.9 fl (81-99); Mean Platelet Volume 7.9 fl (7.4-10.4); Monocytes # 0.5 K/mm3 (0.1-1.0); Monocytes % 7.1 % (1.7-9.3); Neutrophils % 55.2 % (37.0-80.0); Platelet Count 312 K/mm3 (142-424); Red Blood Count 3.63 M/mm3 (4.20-5.40); Red Cell Distribution Width 15.4 % (11.5-17.5); White Blood Count 7.2 K/mm3 (4.8-10.8)
[2021-02-06 06:50] LABS: Alanine Aminotransferase 17 U/L (12-78); Albumin Level 2.8 g/dl (3.5-5.0); Albumin/Globulin Ratio 0.9 (1.1-1.8); Alkaline Phosphatase 107 U/L (38-126); Aspartate Amino Transferase 32 U/L (14-36); Bilirubin,Total 0.6 mg/dl (0.2-1.3); Blood Urea Nitrogen 22 mg/dl (7-17); Calcium 8.2 mg/dl (8.4-10.2); Carbon Dioxide 23 mmol/L (22.0-30.0); Chloride 116 mmol/L (98-107); Creatinine Clearance Estimated 54 mL/min (50-200); Estimated Glomerular Filt Rate 43 ml/min (>60); GFR (African American) 52 ML/MIN (>60); Glucose 153 mg/dl (74-100); Sodium 141 mmol/L (136-145); Total Protein,Serum 5.8 g/dl (6.3-8.2)
[2021-02-06 07:02] LABS: POC Glucose,Bedside 155 (70-110)
[2021-02-06 08:00] VITALS: BP 139/58; PULSE 66; RESP 17; TEMP 36.5; O2SAT 98
--- NOTE | 2021-02-06 08:30 | HMH.ACPN2 ---
<Edie Sparks - Last Filed: 02/06/21 08:30> Internal Medicine - PN: Subj *Date: 02/06/21 *Time: 08:31 Interval history: Patient and daughter feels she is doing better. Patient is pleased with her progress. She denies chest pain and shortness of breath. She has been able to eat without difficulty. Bowels have moved. She continues with Dillard catheter. She has not been out of bed. CBC with a hemoglobin of 10.8 hematocrit of 33.4 and white count of 7200. Blood chemistries show sodium of 141 and potassium of 4 BUN is 22 and creatinine is 1.2 which are both improved. Calcium is 8.2. Urine is positive for E. coli which is sensitive to Rocephin which the patient is on. Blood cultures thus far show no growth. Exam Vital signs and Labs for Last 24 Hours: Temp Pulse Resp BP Pulse Ox 98.6 F 66 19 111/48 L 97 02/06/21 04:00 02/06/21 04:00 02/06/21 04:00 02/06/21 04:00 02/06/21 04:00 Laboratory Results - last 24 hr 02/05/21 11:32: POC Glucose 259 H 02/05/21 17:04: POC Glucose 136 H 02/05/21 20:47: POC Glucose 248 H 02/06/21 06:21: WBC 7.2, RBC 3.63 L, Hgb 10.8 L, Hct 33.4 L, MCV 91.9, MCH 29.8, MCHC 32.4, RDW 15.4, Plt Count 312, MPV 7.9, Neut % (Auto) 55.2, Lymph % (Auto) 35.2, [place] % (Auto) 7.1, Eos % (Auto) 1.9, Baso % (Auto) 0.7, Neut # (Auto) 4.0, Lymph # (Auto) 2.5, [place] # (Auto) 0.5, Eos # (Auto) 0.1, Baso # (Auto) 0.1 02/06/21 06:21: Sodium 141, Potassium 4.0 D, Chloride 116 H, Carbon Dioxide 23, Anion Gap 6.0, BUN 22 H, Creatinine 1.20 H, Estimated Creat Clear 54, Estimated GFR 43 L, Est GFR ( Amer) 52 L, Glucose 153 H, Calcium 8.2 L, Total Bilirubin 0.6, AST 32, ALT 17, Alkaline Phosphatase 107, Total Protein 5.8 L, Albumin 2.8 L, Globulin 3.0, Albumin/Globulin Ratio 0.9 L 02/06/21 06:24: POC Glucose 155 H I & O for Last 24 hours: Intake & Output 02/03/21 02/04/21 02/05/21 02/06/21 11:59 11:59 11:59 11:59 Intake Total 990 / 990 2407 / 2407 Output Total 850 / 850 1550 / 1550 Balance 140 / 140 857 / 857 Weight 218 lb 196 lb 8 oz 204 lb 6 oz Microbiology Reports for the Last 24 Hours: Microbiology 02/04/21 07:50 Blood Blood Culture - Preliminary NO GROWTH AFTER 48 HOURS 02/04/21 07:50 Blood Blood Culture - Preliminary NO GROWTH AFTER 48 HOURS 02/04/21 07:35 Urine,Catheterized Urine Culture - Final Escherichia coli - Constitutional no acute distress Comments: Sitting up in the bed eating her breakfast without difficulty. Daughter is at bedside. - *Routine Respiratory Exam Present: CTA bilaterally (Anteriorly and posteriorly) - *Routine Cardiovascular Exam Present: RRR - *Routine Abdominal Exam Present: soft, normoactive bowel sounds. Absent: tenderness - *Routine Extremities Exam Absent: edema, calf tenderness - *Routine Neurological Exam Present: alert, oriented X3 Conversant Assessment and Plan (1) Pneumonia Status: Acute Category: Medical Code(s): J18.9 - Pneumonia, unspecified organism (2) Encephalopathy Status: Acute Category: Medical Code(s): G93.40 - Encephalopathy, unspecified (3) Somnolence Status: Acute Category: Medical Code(s): R40.0 - Somnolence (4) Hypothyroid Status: Acute Category: Medical Code(s): E03.9 - Hypothyroidism, unspecified (5) CAD (coronary artery disease) Status: Chronic Qualifiers: Coronary Disease-Associated Artery/Lesion type: [place] artery [place] vs. transplanted heart: [place] heart Associated angina: without angina Qualified Code(s): I25.10 - Atherosclerotic heart disease of [place] coronary artery without angina pectoris Category: Medical Code(s): I25.10 - Atherosclerotic heart disease of [place] coronary artery without angina pectoris (6) Diabetes mellitus Status: Chronic Qualifiers: Diabetes mellitus type: type 2 Diabetes mellitus director long term care insulin use: wit
--- NOTE | 2021-02-06 08:41 | SW/DCPLANNER ---
Addendum entered by [facility] 02/09/21 14:02: This patient will discharge to [facility] today. Family will transport. Addendum entered by Kimber [place] 02/09/21 09:22: Dr Morrow has agreed to follow at [facility]. Addendum entered by [facility] 02/09/21 09:14: I have updated Shikha with [facility] that pending repeat labs patient could potentially discharge today. COVID swab from yesterday was negative and has been faxed to Shikha. I will continue to update Shikha with [facility] and patient/family. Addendum entered by [facility] 02/08/21 12:40: This patient has been accepted to [facility] per Shikha under private pay ([facility] has now lifted guidelines and requires qualifying stay). I have spoke with patients son Jayson. Jayson/patient is agreeable to discharge plan. I will inform MD of discharge plans. Patient will need another COVID swab prior to discharge. Addendum entered by [facility] 02/08/21 09:35: Family is now interested in placement: short term for rehab then to return home with family. Family/patient stated they were interested in [facility] and if they did not have anything available then [facility]. I spoke with Janeen from [facility] this morning and they do not have any female beds available/ Shikha with [facility] does have beds and patient information has been faxed. I will continue to follow up with Shikha and patient/family. Patient will be ready for discharge tomorrow. Addendum entered by [facility] 02/06/21 12:46: Families plan at time of discharge is to discharge home with son (Jayson) and home health service. Family has stated that patient will need a rolling walker and bedside commode at time of discharge. I will set up home health and DME at time of discharge for this patient. Addendum entered by [facility] 02/06/21 10:19: Per Lorna patient is private pay and does have [facility] skilled days left to use. I will continue to follow up with Lorna until medically stable for discharge. Original Note: This patient currently resides at [facility]. I have spoke with Lorna from [facility] and she has stated that patient is [facility] level of care. I will continue to follow up with [facility] until patient is medically stable for discharge. Discharge date is unknown at this time.
[2021-02-06 10:04] LABS: POC Glucose,Bedside 203 (70-110)
--- NOTE | 2021-02-06 11:30 | HMH.PTEV ---
Physical Therapy Evaluation Rehab PT IP Evaluation Start: 02/06/21 08:15 Freq: ONCE Status: Active Protocol: Document 02/06/21 10:40 PHORNE (Rec: 02/06/21 11:30 PHORNE [id number]) Subjective/History History History 80 yowf adm to [facility] with anemia and PNA. She reports she has been staying at [facility], but would prefer to return home with her son with 1 step to enter the home. Subjective Subjective Pt with no c/o this am. Rehab PT IP Eval Objective Appearance Patient Behavior Appropriate Patient Orientation Person,Place,Time Difficulty following instructions none Speech Pattern Clear Ambulation Patient Able to Ambulate Yes Ambulation Observation IP General Gait Pattern Observation Shuffling Step Ambulation Distance (feet) 20 Ambulation Assistive Device Rolling Walker Ambulation Ability Contact Guard/Hand Hold Balance Ability to Arise Able, uses arms to help Sitting Balance Steady, safe Standing Balance Steady, wide stance Dynamic Sitting Balance Ability Good Dynamic Standing Balance Ability Fair Transfers Bed Transfer Ability Contact Guard/Hand Hold Chair Transfer Ability Contact Guard/Hand Hold Sit to Stand Bed Transfer Ability Contact Guard/Hand Hold Sit to Stand Chair Transfer Ability Contact Guard/Hand Hold Rehab PT IP prob,goals,plan Problems Date of Evaluation: 02/06/21 PT IP Problems Bed Mobility,Transfers,Gait Rehab Potential Rehab Potential Good Plan PT Intervention Plan Bed Mobility,Transfers,Gait, Therapeutic Exercise PT Plan Frequency BID Duration LOS Discharge Goals Bed Transfer Ability Supervision/Stand by Sit to Stand Chair Transfer Ability Supervision/Stand by Ambulation Assistive Device Rolling Walker Ambulation Distance (feet) 40 Discharge Plan PT Discharge Plan Pt is appropriate to return home once medically stable with 24 hr assist available. G -code Required No Eval Complexity Eval Charge Codes 15047 - Moderate Complexity PHYSICIAN CERTIFICATION: I certify the specified therapy services for Dewayne Moctezuma are required, authorized, and reviewed every 30 days.
[2021-02-06 11:52] LABS: POC Glucose,Bedside 242 (70-110)
[2021-02-06 12:00] VITALS: BP 96/50; PULSE 44; RESP 19; TEMP 36.8; O2SAT 96
--- NOTE | 2021-02-06 13:01 | CA_ITS ---
APPROVED REPORT [employer]: CT Laterality: Bilateral Indications: altered mental status Risk Factors Hypertension: Hyperlipidemia Diabetes CAD, cardiac stents Doppler Spectral Velocity Analysis dICA (R) 71.90/14.10 cm/s dICA (L) 111.70/19.30 cm/s Paulette (R) 107.90/19.90 cm/s Paulette (L) 121.40/16.40 cm/s pICA (R) 97.00/14.80 cm/s pICA (L) 106.90/12.50 cm/s dCCA (R) 89.80/9.60 cm/s dCCA (L) 98.80/9.70 cm/s pCCA (R) 108.00/1.10 cm/s pCCA (L) 114.90/9.00 cm/s Vert (R) 46.20/ cm/s Vert (L) 43.30/ cm/s Findings Duplex evaluation demonstrates stenosis of the right proximal internal carotid artery in the range of 20-49%. Duplex evaluation demonstrates stenosis of the left proximal internal carotid artery in the range of 20-49%, upper end of scale. Duplex evaluation demonstrates antegrade flow of the bilateral Vertebral Arteries. Conclusion Duplex evaluation demonstrates stenosis of the right proximal internal carotid artery in the range of 20-49%. Duplex evaluation demonstrates stenosis of the left proximal internal carotid artery in the range of 20-49%, upper end of scale. Duplex evaluation demonstrates antegrade flow of the bilateral Vertebral Arteries. Electronically signed by : Zaida Read, 02/07/2021 15:43:02
--- NOTE | 2021-02-06 13:02 | CA_ITS ---
APPROVED REPORT EXAM: Comprehensive 2D, Doppler, and color-flow Echocardiogram Crystalizer Operator: Krista Giron CRT Ht: 5 ft 4 in Wt: 204lbs BSA: 1.97 BP: 140/54 mmHg Indications: Diabetes, CAD, Hyperlipidemia, Hypertension/HDD, stents 2D Dimensions LVOT 1.88 cm (M/F) 1.5-2.5 LA Volume 66.90 mL LA Volume Index 34.00 mL/m2 (M/F) 16-34 M-Mode Dimensions RVDd 2.72 cm (0.9-2.6) LA Diam 4.39 cm (1.9-4.0) LVDd 5.01 cm (3.5-5.7) Ao Diam 3.14 cm (2.0-3.7) LVDs 3.04 cm (3.5-5.7) IVSd 1.36 cm (0.6-1.1) PWd 0.89 cm (0.6-1.1) EF (Teich) 69.50% FS 39.30% EDV (Teich) 118.80 mL TAPSE 2.42 (<1.7) ESV (Teich) 36.20 mL LV Diastology E Decel Time 310.00 (160-240 msec) E/A Ratio 1.17 MED E' 6.00 (< 7 cm/sec) MED A' 7.40 cm/s E'/MED E' Ratio 19.30 (>14) LAT E' 6.90 (<10 cm/sec) LAT A' 9.10 cm/s E/LAT E' Ratio 16.78 (>14) Aortic Valve LVOT Max 170.00 (70-110 cm/s) LVOT VTI 40.72 cm AoV Peak Manoj. 251.00 (50-130 cm/s) AO Peak GR. 25.20 mmHg AO Mean GR. 13.00 (<5 mmHg) AO VTI 57.38 (18-25 cm) WILMAR (VTI) 1.97 (2.5-4.5 cm2) Mitral Valve MV A Velocity 99.00 (40-130 cm/s) E/A Ratio 1.17 MV Decel. Time 310.00 (160-240 ms) Pulmonary Valve PV Peak Velocity 79.00 (50-150 cm/s) Tricuspid Valve TR P. Velocity 264.00 cm/s RAP Estimate 10.00 mmHg RVSP 37.80 mmHg Left Ventricle Left atrium is mildly enlarged, left ventricle is normal size, mild concentric left ventricular hypertrophy, visually estimated ejection fraction 55% with no regional wall motion abnormality, grade 2 diastolic dysfunction seen without tissue Doppler evidence of raise left atrial pressure. Right Ventricle Right atrium and right ventricle mildly enlarged with normal contractility. Aortic Valve Aortic valve is thickened and calcified with mean gradient of 14 mmHg, valve area 1.8 cm??? represents mild aortic stenosis, there is no significant aortic insufficiency. Mitral Valve Mitral valve has mitral annular calcification, leaflets are minimally thickened, there is no mitral stenosis, there is mild mitral regurgitation. Tricuspid Valve Tricuspid grossly normal, there is mild tricuspid regurgitation, calculated right ventricular systolic pressure 36 mmHg. Pulmonic Valve Pulmonic valve is poorly visualized. Great Vessels Aortic root is normal size. Pericardium No significant pericardial effusion noted. Conclusion 1. Mild biatrial alignment, normal left ventricular size, mild concentric left ventricular hypertrophy, visually estimated ejection fraction 55% with no regional wall motion abnormality, grade 2 diastolic dysfunction seen without tissue Doppler evidence of raise left atrial pressure. 2. Mildly enlarged right ventricle with normal contractility. 3. Thickened and calcified aortic valve with mild aortic stenosis valve area is 1.8 cm???, there is no aortic insufficiency. 4. Mild mitral and tricuspid regurgitation, calculated right ventricular systolic pressure 36 mmHg, inferior vena cava is normal size with normal inspiratory collapse. 5. No significant pericardial effusion noted. Electronically signed by : Randy Culver, 02/06/2021 10:07:39
--- NOTE | 2021-02-06 13:23 | PC.NURSE ---
PT WILL NEED A ROLLING WALKER AND A BEDSIDE COMMODE DUE TO GAIT/MOBILITY ISSUES, AND DISTANCE TO RESTROOM IN HOME.
[2021-02-06 14:46] VITALS: BMI 34.1
[2021-02-06 16:00] VITALS: BP 144/54; PULSE 57; RESP 17; TEMP 36.9; O2SAT 98
[2021-02-06 17:04] LABS: POC Glucose,Bedside 166 (70-110)
--- NOTE | 2021-02-06 19:32 | PC.NURSE ---
PT HAS DONE WELL TODAY. NO CHANGES NOTED. WANTING TO GET HOME TOMORROW. VSS. WILL CONT. TO MONITOR.
[2021-02-06 19:53] LABS: POC Glucose,Bedside 225 (70-110)
[2021-02-06 20:00] VITALS: BP 116/59; PULSE 58; RESP 16; TEMP 37.1; O2SAT 97
[2021-02-07] VITALS: BP 112/60; PULSE 67; RESP 16; TEMP 36.7; O2SAT 96
--- NOTE | 2021-02-07 03:04 | PC.NURSE ---
No acute changes overnight. A&O. Patient slept well through the night, no c/o pain. Pt has been voiding in the BSC with assist x1. Lungs CTA, on room air. Bowel soudns x4, abd soft and nontender. IV patent, 0.45 NS with 20K @ 75. VSS, call light in reach, no concerns at this time.
[2021-02-07 04:00] VITALS: BP 113/57; PULSE 60; RESP 16; TEMP 36.6; O2SAT 97
[2021-02-07 05:00] VITALS: BMI 33.8
[2021-02-07 05:41] LABS: POC Glucose,Bedside 186 (70-110)
[2021-02-07 07:02] LABS: Basophils % 0.6 % (0.1-2.0); Eosinophils # 0.2 K/mm3 (0.0-0.4); Eosinophils % 2.4 % (0.1-12.0); Hematocrit 34.3 % (37.0-47.0); Hemoglobin 10.7 g/dL (12.2-16.2); Lymphocytes # 2.2 K/mm3 (0.7-4.5); Lymphocytes % 35.7 % (10-50); Mean Corpuscular HGB Conc 31.3 g/dL (31.8-35.4); Mean Corpuscular Hemoglobin 29.3 pg (27.0-31.2); Mean Corpuscular Volume 93.6 fl (81-99); Monocytes # 0.4 K/mm3 (0.1-1.0); Neutrophils # 3.4 K/mm3 (1.8-7.8); Neutrophils % 54.3 % (37.0-80.0); Platelet Count 300 K/mm3 (142-424); Red Blood Count 3.67 M/mm3 (4.20-5.40); Red Cell Distribution Width 15.4 % (11.5-17.5); White Blood Count 6.2 K/mm3 (4.8-10.8)
[2021-02-07 08:00] VITALS: BP 104/48; PULSE 63; RESP 20; TEMP 36.6; O2SAT 98
--- NOTE | 2021-02-07 08:04 | HMH.ACPN2 ---
<Edie Sparks - Last Filed: 02/07/21 08:04> Internal Medicine - PN: Subj *Date: 02/07/21 *Time: 08:04 Interval history: Patient feels good today. She slept during the night. She ate without difficulty. Bowels have moved. She was incontinent of urine x1 but otherwise got up to the bedside commode. She did work with physical therapy yesterday and was able to walk to the chair. She was unable to walk back to bed due to leg weakness. Family plans to for her to go home with her son. Arrangements are being made. CBC this a.m. shows a hemoglobin of 10.7 and hematocrit of 34.3. White blood cell count is 6200. Blood cultures continue to be negative. Echocardiogram Reveals the following: Conclusion 1. Mild biatrial alignment, normal left ventricular size, mild concentric left ventricular hypertrophy, visually estimated ejection fraction 55% with no regional wall motion abnormality, grade 2 diastolic dysfunction seen without tissue Doppler evidence of raise left atrial pressure. 2. Mildly enlarged right ventricle with normal contractility. 3. Thickened and calcified aortic valve with mild aortic stenosis valve area is 1.8 cm???, there is no aortic insufficiency. 4. Mild mitral and tricuspid regurgitation, calculated right ventricular systolic pressure 36 mmHg, inferior vena cava is normal size with normal inspiratory collapse. 5. No significant pericardial effusion noted. Exam Vital signs and Labs for Last 24 Hours: Temp Pulse Resp BP Pulse Ox 98 F 60 16 113/57 L 97 02/07/21 04:00 02/07/21 04:00 02/07/21 04:00 02/07/21 04:00 02/07/21 04:00 Laboratory Results - last 24 hr 02/06/21 09:41: POC Glucose 203 H 02/06/21 11:42: POC Glucose 242 H 02/06/21 16:55: POC Glucose 166 H 02/06/21 19:46: POC Glucose 225 H 02/07/21 05:29: POC Glucose 186 H 02/07/21 06:34: WBC 6.2, RBC 3.67 L, Hgb 10.7 L, Hct 34.3 L, MCV 93.6, MCH 29.3, MCHC 31.3 L, RDW 15.4, Plt Count 300, MPV 8.0, Neut % (Auto) 54.3, Lymph % (Auto) 35.7, [place] % (Auto) 7.0, Eos % (Auto) 2.4, Baso % (Auto) 0.6, Neut # (Auto) 3.4, Lymph # (Auto) 2.2, [place] # (Auto) 0.4, Eos # (Auto) 0.2, Baso # (Auto) 0.0 I & O for Last 24 hours: Intake & Output 02/04/21 02/05/21 02/06/21 02/07/21 11:59 11:59 11:59 11:59 Intake Total 990 / 990 2807 / 2807 540 / 540 Output Total 850 / 850 1550 / 1550 Balance 140 / 140 1257 / 1257 540 / 540 Weight 218 lb 196 lb 8 oz 204 lb 6 oz 203 lb 1 oz Microbiology Reports for the Last 24 Hours: Microbiology 02/04/21 07:50 Blood Blood Culture - Preliminary NO GROWTH AFTER 48 HOURS 02/04/21 07:50 Blood Blood Culture - Preliminary NO GROWTH AFTER 48 HOURS 02/04/21 07:35 Urine,Catheterized Urine Culture - Final Escherichia coli - Constitutional no acute distress Comments: Able to assist with exam by sitting up on her own. - *Routine Respiratory Exam Present: CTA bilaterally (Anteriorly and posteriorly) - *Routine Cardiovascular Exam Present: RRR - *Routine Abdominal Exam Present: soft, normoactive bowel sounds. Absent: tenderness - *Routine Extremities Exam Absent: edema, calf tenderness - *Routine Neurological Exam Present: alert, oriented X3 (Conversant.), normal speech Assessment and Plan (1) E. coli UTI Status: Acute Category: Medical Code(s): N39.0 - Urinary tract infection, site not specified; B96.20 - Unspecified Escherichia coli [E. coli] as the cause of diseases classified elsewhere (2) Pneumonia Status: Acute Category: Medical Code(s): J18.9 - Pneumonia, unspecified organism (3) Encephalopathy Status: Acute Category: Medical Code(s): G93.40 - Encephalopathy, unspecified (4) Somnolence Status: Acute Category: Medical Code(s): R40.0 - Somnolence (5) Hypothyroid Status: Acute Category: Medical Code(s): E03.9 - Hypothyroidism, unspecified (6) CAD
--- NOTE | 2021-02-07 08:12 | XR_ITS ---
PROCEDURE: XR CHEST 2V CLINICAL HISTORY: Altered mental status COMPARISON: February 04, 2021 FINDINGS: The cardiomediastinal silhouette and pulmonary vascularity are within normal limits. Background of minor chronic interstitial changes are noted. Atelectasis in the left mid zone. No lobar consolidation, pleural effusions or pneumothorax. Healing fractures of the surgical neck of the bilateral humeri. Degenerative changes of the visualized thoracic spine. IMPRESSION: Atelectasis in the left mid zone. No lobar consolidation or pleural effusions. Dictated by: Zaida Read 02/07/2021 15:23 Zaida Read in OV 02/07/2021 15:23
[2021-02-07 09:32] LABS: POC Glucose,Bedside 252 (70-110)
--- NOTE | 2021-02-07 11:32 | HMH.ACPN ---
Internal Medicine - PN: Subj *Date: 02/07/21 *Time: 11:32 Exam Vital signs and Labs for Last 24 Hours: Temp Pulse Resp BP Pulse Ox 97.9 F 63 20 104/48 L 98 02/07/21 08:00 02/07/21 08:00 02/07/21 08:00 02/07/21 08:00 02/07/21 08:00 Laboratory Results - last 24 hr 02/06/21 11:42: POC Glucose 242 H 02/06/21 16:55: POC Glucose 166 H 02/06/21 19:46: POC Glucose 225 H 02/07/21 05:29: POC Glucose 186 H 02/07/21 06:34: WBC 6.2, RBC 3.67 L, Hgb 10.7 L, Hct 34.3 L, MCV 93.6, MCH 29.3, MCHC 31.3 L, RDW 15.4, Plt Count 300, MPV 8.0, Neut % (Auto) 54.3, Lymph % (Auto) 35.7, [place] % (Auto) 7.0, Eos % (Auto) 2.4, Baso % (Auto) 0.6, Neut # (Auto) 3.4, Lymph # (Auto) 2.2, [place] # (Auto) 0.4, Eos # (Auto) 0.2, Baso # (Auto) 0.0 02/07/21 09:13: POC Glucose 252 H I & O for Last 24 hours: Intake & Output 02/04/21 02/05/21 02/06/21 02/07/21 23:59 23:59 23:59 23:59 Intake Total 120 / 120 2230 / 2230 1986 / 1986 240 / 240 Output Total 500 / 500 1400 / 1400 500 / 500 0 / 0 Balance -380 / -380 830 / 830 1487 / 1487 240 / 240 Weight 88.932 kg 89.131 kg 93 kg 92.108 kg Microbiology Reports for the Last 24 Hours: Microbiology 02/04/21 07:50 Blood Blood Culture - Preliminary NO GROWTH AFTER 48 HOURS 02/04/21 07:50 Blood Blood Culture - Preliminary NO GROWTH AFTER 48 HOURS Assessment and Plan (1) E. coli UTI Status: Acute Category: Medical Code(s): N39.0 - Urinary tract infection, site not specified; B96.20 - Unspecified Escherichia coli [E. coli] as the cause of diseases classified elsewhere (2) Pneumonia Status: Acute Category: Medical Code(s): J18.9 - Pneumonia, unspecified organism (3) Encephalopathy Status: Acute Category: Medical Code(s): G93.40 - Encephalopathy, unspecified (4) Somnolence Status: Acute Category: Medical Code(s): R40.0 - Somnolence (5) Hypothyroid Status: Acute Category: Medical Code(s): E03.9 - Hypothyroidism, unspecified (6) CAD (coronary artery disease) Status: Chronic Qualifiers: Coronary Disease-Associated Artery/Lesion type: [place] artery [place] vs. 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 Diabetes mellitus complication status: with other specified complication Qualified Code(s): E11.69 - Type 2 diabetes mellitus with other specified complication; Z79.4 - [facility] (current) use of insulin Category: Medical Code(s): E11.9 - Type 2 diabetes mellitus without complications (8) Hypertension Status: Chronic Qualifiers: Hypertension type: essential hypertension Qualified Code(s): I10 - Essential (primary) hypertension Category: Medical Code(s): I10 - Essential (primary) hypertension (9) Renal insufficiency Status: Acute Category: Medical Code(s): N28.9 - Disorder of kidney and ureter, unspecified (10) Anemia Status: Acute Category: Medical Code(s): D64.9 - Anemia, unspecified (11) Heme positive stool Status: Acute Category: Medical Code(s): R19.5 - Other fecal abnormalities (12) Hypokalemia Status: Acute Category: Medical Code(s): E87.6 - Hypokalemia The patient's infection will respond to the chosen ABx?: Yes Is the patient receiving the right drug, dose, and route?: Yes Could a more targeted ABx be ordered?: No (URINE=E.COLI-SENSITIVE TO CEFTRIAXONE)
[2021-02-07 11:48] LABS: POC Glucose,Bedside 222 (70-110)
[2021-02-07 12:00] VITALS: BP 102/41; PULSE 60; RESP 18; TEMP 36.6; O2SAT 99
[2021-02-07 13:53] LABS: POC Glucose,Bedside 229 (70-110)
--- NOTE | 2021-02-07 14:19 | PC.NURSE ---
Addendum entered by Geovanna Barrera RN 02/07/21 17:17: PT C/O BEING DIZZY ONE TIME WITH RAD STAFF. WHEN GETTING UP TO THE BSC THIS AFTER NOON PT STATED NO DIZZINESS. SHE SAT UP IN CHAIR FOR MAJORITY OF SHIFT. VSS. Addendum entered by Geovanna Barrera RN 02/07/21 15:16: MANUAL BP OF 106/54 Original Note: PT C/O DIZZINESS WHEN PT ATTEMPTED TO GET HER OUT OF THE CHAIR, MANUAL BP OBTAINED OF 82/38 AND BLOOD SUGAR OF 226. MD JOHNSON CONTACTED AND STATED TO GIVE A 500CC BOLUS WITH HER CURRENT FLUIDS.
[2021-02-07 16:00] VITALS: BP 125/51; PULSE 55; RESP 18; TEMP 36.5; O2SAT 99
[2021-02-07 16:54] LABS: POC Glucose,Bedside 211 (70-110)
[2021-02-07 20:00] VITALS: BP 129/59; PULSE 66; RESP 16; TEMP 36.7; O2SAT 97; O2SAT 99
--- NOTE | 2021-02-07 23:59 | PC.NURSE ---
She is A&Ox4. She denies dizziness or pain. She ate a snack before bed. Glucose was 216 at bedtime. 1+ pitting edema noted to BLE. safety set and call light within reach.
[2021-02-08] VITALS (7 sets, daily range): BP systolic 125–147; BP diastolic 58–78; PULSE 56–71; RESP 16–20; TEMP 36.7–36.9; O2SAT 97–100; BMI 34.8
[2021-02-08 00:37] LABS: POC Glucose,Bedside 216 (70-110)
[2021-02-08 05:23] LABS: POC Glucose,Bedside 215 (70-110)
[2021-02-08 07:39] LABS: Basophils % 0.6 % (0.1-2.0); Eosinophils # 0.2 K/mm3 (0.0-0.4); Eosinophils % 3.2 % (0.1-12.0); Hematocrit 34.3 % (37.0-47.0); Hemoglobin 10.8 g/dL (12.2-16.2); Lymphocytes # 2.3 K/mm3 (0.7-4.5); Mean Corpuscular HGB Conc 31.6 g/dL (31.8-35.4); Mean Corpuscular Hemoglobin 30.3 pg (27.0-31.2); Mean Platelet Volume 8.1 fl (7.4-10.4); Monocytes # 0.4 K/mm3 (0.1-1.0); Monocytes % 5.8 % (1.7-9.3); Neutrophils # 3.9 K/mm3 (1.8-7.8); Neutrophils % 57.4 % (37.0-80.0); Platelet Count 289 K/mm3 (142-424); Red Blood Count 3.58 M/mm3 (4.20-5.40); Red Cell Distribution Width 15.3 % (11.5-17.5); White Blood Count 6.8 K/mm3 (4.8-10.8)
--- NOTE | 2021-02-08 07:39 | HMH.ACPN2 ---
<Edie Sparks - Last Filed: 02/08/21 07:52> Internal Medicine - PN: Subj *Date: 02/08/21 *Time: 07:52 Interval history: Patient had a rough day yesterday. She experienced dizziness after lunch and when in Xray. This resolved in the afternoon after receiving additional IV fluids. She is somewhat short of breath this morning. She has a nonproductive cough. She denies any pain. She did sit up in a chair for quite a while yesterday. She walked once in the a.m. Bowels are somewhat loosening up. She is voiding QS. Repeat chest x-ray yesterday showed atelectasis in the left mid zone. No lobar consolidation or pleural effusions. O2 sats this a.m. are 98% on room air. Laboratory data this morning shows hemoglobin of 10.8 and hematocrit of 34.3. White blood cell count is 6800. Blood chemistries with a sodium of 138 potassium 5.1; renal function with a BUN of 23 and creatinine of 1.3 Exam Vital signs and Labs for Last 24 Hours: Temp Pulse Resp BP Pulse Ox 98.1 F 64 18 141/71 H 98 02/08/21 04:00 02/08/21 04:00 02/08/21 04:00 02/08/21 04:00 02/08/21 04:00 Laboratory Results - last 24 hr 02/07/21 09:13: POC Glucose 252 H 02/07/21 11:36: POC Glucose 222 H 02/07/21 13:37: POC Glucose 229 H 02/07/21 16:34: POC Glucose 211 H 02/07/21 20:33: POC Glucose 216 H 02/08/21 05:14: POC Glucose 215 H I & O for Last 24 hours: Intake & Output 02/05/21 02/06/21 02/07/21 02/08/21 11:59 11:59 11:59 11:59 Intake Total 990 / 990 2807 / 2807 780 / 780 2366 / 2366 Output Total 850 / 850 1550 / 1550 0 / 0 Balance 140 / 140 1257 / 1257 780 / 780 2366 / 2366 Weight 196 lb 8 oz 204 lb 6 oz 203 lb 1 oz 209 lb 1 oz - Constitutional no acute distress Comments: Sitting up in the bed eating her breakfast. She is dyspneic with talking. - *Routine Respiratory Exam Present: crackles (Bilateral fine crackles posteriorly. Wheezing also heard.) - *Routine Cardiovascular Exam Present: irregular rhythm - *Routine Abdominal Exam Present: soft, normoactive bowel sounds. Absent: tenderness - *Routine Extremities Exam Present: edema - *Routine Neurological Exam Present: alert, oriented X3 Assessment and Plan (1) E. coli UTI Status: Acute Category: Medical Code(s): N39.0 - Urinary tract infection, site not specified; B96.20 - Unspecified Escherichia coli [E. coli] as the cause of diseases classified elsewhere (2) Pneumonia Status: Acute Category: Medical Code(s): J18.9 - Pneumonia, unspecified organism (3) Encephalopathy Status: Acute Category: Medical Code(s): G93.40 - Encephalopathy, unspecified (4) Somnolence Status: Acute Category: Medical Code(s): R40.0 - Somnolence (5) Hypothyroid Status: Acute Category: Medical Code(s): E03.9 - Hypothyroidism, unspecified (6) CAD (coronary artery disease) Status: Chronic Qualifiers: Coronary Disease-Associated Artery/Lesion type: [place] artery [place] vs. 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
[2021-02-08 07:47] LABS: Anion Gap 7.1 mEq/L (5-15); Blood Urea Nitrogen 23 mg/dl (7-17); Calcium 8.3 mg/dl (8.4-10.2); Carbon Dioxide 20 mmol/L (22.0-30.0); Chloride 116 mmol/L (98-107); Creatinine Clearance Estimated 51 mL/min (50-200); Estimated Glomerular Filt Rate 39 ml/min (>60); GFR (African American) 48 ML/MIN (>60); Glucose 181 mg/dl (74-100); Potassium 5.1 mmoL/L (3.5-5.1); Sodium 138 mmol/L (136-145)
--- NOTE | 2021-02-08 08:57 | CT_ITS ---
PROCEDURE: CT ANGIO CHEST CLINCIAL INDICATION: Hypotension, Hyoxemia COMPARISON: No exams were available for comparison TECHNIQUE: IV Contrast: 70ML Isovue 370 Axial images obtained with sagittal and coronal reformats. All CT scans at the facility use one or more dose reduction, viz: automated exposure control, ma/kV adjustment per patient size (including targeted exams where dose is matched to indication, i.e. head), or iterative reconstruction technique. FINDINGS: Images are degraded due to motion artifact. HEART AND MEDIASTINAL STRUCTURES: The pulmonary trunk and the pulmonary arteries demonstrate adequate opacification. No focal filling defects are noted in the pulmonary arteries to suggest embolism. The heart size is normal. No pericardial effusions. Atherosclerotic vascular calcification of the thoracic aorta and the coronary arteries are noted. Coronary arterial stents are noted. LUNGS AND PLEURAL SPACES: No focal consolidation, pleural effusions or pneumothorax. Minor nonspecific mosaic perfusion is noted without evidence of focal consolidation, pleural effusions or pneumothorax. Minor bibasal atelectasis noted. The central tracheobronchial tree is patent. No suspicious lung nodules within the limitations of the study. BONY STRUCTURES: Multilevel degenerative changes of the visualized thoracic spine. Severe degenerative changes of the bilateral shoulder joints are noted. UPPER ABDOMEN: Cholelithiasis is noted without evidence of cholecystitis. Contracted gallbladder. Extensive atherosclerotic vascular calcification of visualized abdominal aorta and its branches. Small to moderate hiatus hernia is noted. Rest of the upper abdominal solid organs are unremarkable within the limitations of the study. ADDITIONAL FINDINGS: No other significant abnormalities. IMPRESSION: Slightly limited study due to motion artifact. No evidence of pulmonary embolism within the limitations of the study. No focal consolidation or pleural effusions. Small to moderate hiatus hernia. Cholelithiasis without CT evidence of cholecystitis. Dictated by: Zaida Read 02/08/2021 10:20 Zaida Read in OV 02/08/2021 10:20
--- NOTE | 2021-02-08 09:01 | HMH.CNCARD ---
History of Present Illness Consult date: 02/08/21 Requesting physician: Harry Cotter Chief complaint: dizziness, SOA Additional Medical History:: 1. Coronary artery disease A. [facility], 11/2020, no ischemia, EF 65%, 3 times daily present B. [facility], 12/2020, bifurcating stents into LAD and diagonal. 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 The stenosis is 70% followed by an additional 80% followed by a 50% distal to the first diagonal artery. The remaining LAD has mild 20% mid vessel stenoses. 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 followed by a 70% stenosis at the end of the procedure the LAD first diagonal artery was widely patent with excellent ADONAY-3 flow The circumflex artery Is a nondominant vessel with mild proximal 20 to 30% stenosis The right coronary artery Is a dominant vessel with proximal and mid vessel diffuse 30% stenosis The CANELA ventriculogram reveals Hyperdynamic 70% The left ventricular end-diastolic pressure 20 mmHg IMPRESSION Severe coronary disease as described above Successful stenting in the proximal to mid LAD as described above with bifurcating stents from the proximal LAD extending into a large first diagonal artery Hyperdynamic ventricle Elevated LVEDP PLAN 1. Brilinta and aspirin 2. Avoidance of tobacco products 3. Cardiac rehabilitation 4. Patient needs to have shoulder surgery postponed for at least 6 weeks if possible and preferably 3 months 5. LDL less than 55 6. Treatment of diastolic dysfunction Electronically signed by : Michael Deshpande, 12/22/2020 10:16:46 2. Carotid artery stenosis, 20 to 49%, 11/2020 3. Remote history of DVT 4. Diabetes mellitus, treated for many years 5. Hypertension A. [facility], 11/2020, 1. Biatrial enlargement, normal left ventricular size, mild concentric left ventricular hypertrophy, visually estimated ejection fraction 55% with no regional wall motion abnormality, grade 1 diastolic dysfunction seen with tissue Doppler evidence of raise left atrial pressure. 2. Thickened and calcified aortic valve with mild aortic stenosis, valve area is 1.6 cm???, there is no aortic insufficiency. 3. Mild mitral and trace tricuspid regurgitation. 4. No significant pericardial effusion noted. B. [facility], 02/06/2021, 1. Mild biatrial alignment, normal left ventricular size, mild concentric left ventricular hypertrophy, visually estimated ejection fraction 55% with no regional wall motion abnormality, grade 2 diastolic dysfunction seen without tissue Doppler evidence of raise left atrial pressure. 2. Mildly enlarged right ventricle with normal contractility. 3. Thickened and calcified aortic valve with mild aortic stenosis valve area is 1.8 cm???, there is no aortic insufficiency. 4. Mild mitral and tricuspid regurgitation, calculated right ventricular systolic pressure 36 mmHg, inferior vena cava is normal size with normal inspiratory collapse. 5. No significant pericardial effusion noted. 6. Hyperlipidemia 7. CKD, stage III 8. 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 Plans for left reverse shoulder arthroplasty have been delayed for various reasons. History of present illness: 80-year-old white female with multiple issues over the last several months that started after tripping and falling here at the hospital while visiting a family member and suffering bilateral humeral fractures and neck injury with central cord syndrome with no subsequent sequela. She was transferred to due to the neck injury but subsequently released to rehab. The humeral fractures were planned to be repaired however multiple de
--- NOTE | 2021-02-08 09:24 | ECG_ITS ---
APPROVED REPORT Exam: Resting ECG HR:64 bpm ECG Measurements Heart Rate 64 AXES AR 194 P 5 QRSd 98 QRS -35 QT 426 T -3 QTc 439 Conclusion Normal sinus rhythm with sinus arrhythmia Left axis deviation Incomplete right bundle branch block Abnormal ECG Electronically signed by : John Rosado, 02/08/2021 22:19:46
[2021-02-08 10:08] LABS: Troponin I < 0.01 ng/ml (0.00-0.034)
[2021-02-08 11:42] LABS: POC Glucose,Bedside 229 (70-110)
--- NOTE | 2021-02-08 12:12 | PC.NURSE ---
Pt reminded of need for a sputum sample. Speci cup at bedside.
--- NOTE | 2021-02-08 12:23 | DIET.NUTRFU ---
PO intakes 75%, BG moderate-high- avg. 220, bowel function normal, weight up 4#. Pt reports no nutritional concerns. She continues on a cardiac diet with sugar free beverages/desserts. No changes to nutritional care plan at this time, continuing to monitor.
[2021-02-08 16:09] LABS: POC Glucose,Bedside 274 (70-110)
--- NOTE | 2021-02-08 16:55 | PC.NURSE ---
Pt has been up to the chair majority of this shift. Pt has used BSC multiple times this shift w/ standby assist and walker. Pt has remained A&Ox4 this entire shift. BLE continue to have +1 pitting edema. Legs have been elevated. Family has been in to visit pt multiple times this shift. No other acute changes or complaints at this time.
[2021-02-08 21:15] LABS: POC Glucose,Bedside 199 (70-110)
[2021-02-09] VITALS: BP 130/61; PULSE 69; RESP 18; TEMP 36.9; O2SAT 97
--- NOTE | 2021-02-09 03:13 | PC.NURSE ---
no acute changes. alert and oriented. pt has had intermittent coughing this shift. specimen cup at bedside and pt instructed on giving sputum sample. pt reports nonproductive cough at this time. vss. iv patent and infusing per order. call light in reach. will continue to monitor
[2021-02-09 04:00] VITALS: BP 141/64; PULSE 64; RESP 20; TEMP 37.1; O2SAT 97
[2021-02-09 05:00] VITALS: BMI 34.5
[2021-02-09 06:21] LABS: POC Glucose,Bedside 160 (70-110)
[2021-02-09 07:17] VITALS: BP 148/60; PULSE 63; RESP 16; TEMP 36.8; O2SAT 100
--- NOTE | 2021-02-09 08:19 | HMH.ACPN2 ---
<Meg Lopez - Last Filed: 02/09/21 08:19> Internal Medicine - PN: Subj *Date: 02/09/21 *Time: 08:19 Interval history: Patient states she is feeling better this morning. She denies any pain. She states she had trouble sleeping last night, but does this at home on occasion. She did eat all of her breakfast. Exam Vital signs and Labs for Last 24 Hours: Temp Pulse Resp BP Pulse Ox 98.3 F 63 16 148/60 H 100 02/09/21 07:17 02/09/21 07:17 02/09/21 07:17 02/09/21 07:17 02/09/21 07:17 Laboratory Results - last 24 hr 02/08/21 07:10: Troponin I < 0.01 02/08/21 11:21: POC Glucose 229 H 02/08/21 15:51: POC Glucose 274 H 02/08/21 20:59: POC Glucose 199 H 02/09/21 06:03: POC Glucose 160 H I & O for Last 24 hours: Intake & Output 02/06/21 02/07/21 02/08/21 02/09/21 11:59 11:59 11:59 11:59 Intake Total 2807 / 2807 780 / 780 2656 / 2656 2639 / 2639 Output Total 1550 / 1550 0 / 0 300 / 300 400 / 400 Balance 1257 / 1257 780 / 780 2356 / 2356 2239 / 2239 Weight 204 lb 6 oz 203 lb 1 oz 209 lb 1 oz 207 lb 7 oz Microbiology Reports for the Last 24 Hours: Microbiology 02/04/21 07:50 Blood Blood Culture - Final NO GROWTH AFTER 5 DAYS 02/04/21 07:50 Blood Blood Culture - Final NO GROWTH AFTER 5 DAYS 02/08/21 13:00 Nasopharyngeal Coronavirus COVID-19 PCR - Final Radiology Reports for the Last 24 Hours: Chest CTA Slightly limited study due to motion artifact. No evidence of pulmonary embolism within the limitations of the study. No focal consolidation or pleural effusions. Small to moderate hiatus hernia. Cholelithiasis without CT evidence of cholecystitis. - Constitutional no acute distress - *Routine Respiratory Exam Present: CTA bilaterally - *Routine Cardiovascular Exam Present: irregular rhythm - *Routine Abdominal Exam Present: soft, normoactive bowel sounds. Absent: tenderness - *Routine Extremities Exam Present: edema (Trace bilateral lower extremities). Absent: cyanosis, clubbing - *Routine Skin Exam Present: warm. Absent: rash - *Routine Neurological Exam Present: alert, oriented X3 Assessment and Plan (1) E. coli UTI Status: Acute Category: Medical Code(s): N39.0 - Urinary tract infection, site not specified; B96.20 - Unspecified Escherichia coli [E. coli] as the cause of diseases classified elsewhere (2) Pneumonia Status: Acute Category: Medical Code(s): J18.9 - Pneumonia, unspecified organism (3) Encephalopathy Status: Acute Category: Medical Code(s): G93.40 - Encephalopathy, unspecified (4) Somnolence Status: Acute Category: Medical Code(s): R40.0 - Somnolence (5) Hypothyroid Status: Acute Category: Medical Code(s): E03.9 - Hypothyroidism, unspecified (6) CAD (coronary artery disease) Status: Chronic Qualifiers: Coronary Disease-Associated Artery/Lesion type: [place] artery [place] vs. 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
[2021-02-09 11:19] VITALS: BP 123/44; PULSE 59; RESP 18; TEMP 36.8; O2SAT 98
[2021-02-09 11:40] LABS: POC Glucose,Bedside 211 (70-110)
[2021-02-09 11:47] LABS: Basophils # 0.1 K/mm3 (0-0.2); Basophils % 0.7 % (0.1-2.0); Eosinophils # 0.2 K/mm3 (0.0-0.4); Eosinophils % 3.1 % (0.1-12.0); Hematocrit 35.3 % (37.0-47.0); Hemoglobin 10.9 g/dL (12.2-16.2); Lymphocytes # 2.3 K/mm3 (0.7-4.5); Lymphocytes % 32.5 % (10-50); Mean Corpuscular Hemoglobin 29.8 pg (27.0-31.2); Mean Corpuscular Volume 96.2 fl (81-99); Mean Platelet Volume 9.1 fl (7.4-10.4); Monocytes # 0.5 K/mm3 (0.1-1.0); Monocytes % 7.1 % (1.7-9.3); Neutrophils # 3.9 K/mm3 (1.8-7.8); Neutrophils % 56.6 % (37.0-80.0); Platelet Count 305 K/mm3 (142-424); Red Blood Count 3.67 M/mm3 (4.20-5.40); Red Cell Distribution Width 15.4 % (11.5-17.5)
--- NOTE | 2021-02-09 14:41 | HMH.DCSUM ---
General - General Admission date:: 02/04/21 <Harry Cotter - 03/18/21 14:24> 02/04/21 <Mge Lopez - 02/09/21 14:49> Discharge date: 02/09/21 <Meg Lopez - 02/09/21 14:49> HPI HPI: Ms. Moctezuma is an 80-year-old white female with a history of ASCVD, type 2 diabetes mellitus, hypertension, and hypothyroidism who has been a resident at [facility] since June 2020 after she suffered a fall with a cervical strain and bilateral humeral fractures. During recent preop evaluation for shoulder surgery, she had an abnormal cardiac work-up which resulted in a heart cath with findings of coronary artery disease and stent placement. Over the past 2 to 3 days, she has complained of [facility] with episodes of hypotension, nausea, and vomiting. I saw the [facility] at the [facility] and she appeared pale and labs indeed showed a hemoglobin of 8.1. She was brought to [facility] yesterday and received 2 units of packed red blood cells as an outpatient. Her iron and B12 levels were normal. Her reticulocyte count was elevated. This morning at the [facility], she was more lethargic and staff had difficulty keeping her awake. She was therefore transported back to the emergency room for reevaluation. Work-up in the ER showed normal vital signs. O2 sats are normal on room air. Her H&H is improved after the blood transfusion yesterday. CMP was remarkable only for slightly elevated creatinine of 1.3 above her normal of about 1.0. CT scan of the head showed nothing acute. Chest x-ray shows mild perihilar and bibasilar infiltrates. At the time of my examination she is lying comfortably on the stretcher. She arouses easily and has no complaints. Her son and [id number] are at the bedside and states she has not been eating or drinking very well. They state she called her sister this morning to tell her goodbye . <Meg Lopez - 02/09/21 14:49> Hospital Course Hospital Course: The patient was admitted due to an early pneumonia noted on chest x-ray. She was started on antibiotics. She had recently been found to be anemic with a heme positive stool. Her hemoglobin improved after transfusion of 2 units of packed red blood cells and her H&H remained stable. She will likely need a panendoscopy after her [facility] stay for rehab. A carotid Doppler and echo were both ordered. The carotid duplex showed 20 to 49% stenosis bilaterally. Her echo showed an EF of 55% with grade 2 diastolic dysfunction. There was a thickened and calcified aortic valve with mild aortic stenosis. She also had an elevated right ventricular systolic pressure 36 mmHg. She did begin feeling better and her mental status improved. Her urine was positive for E. coli which was sensitive to Rocephin. Her blood cultures showed no growth. She was continued on antibiotics. Physical therapy was consulted and felt she was appropriate to return home once medically stable with 24-hour assistance. She was able to get up and walk to her chair but did have some leg weakness. A repeat chest x-ray was ordered. It showed atelectasis in the left mid zone but no lobar consolidation or effusions. The patient did experience some dizziness while getting her x-ray. She became somewhat short of breath, but her oxygen saturations were normal. Cardiology was consulted for further evaluation and recommendations. They saw the patient and felt she would need a CTA to rule out a PE. She had a CTA which showed no PE or pneumonia. By 02/09/2021, the patient was feeling much better. She was able to walk in the hallway and was eating well. Her weakness had improved. Labs were rechecked and her H&H was stable. Care management found a bed for her at [facility] and she is stable for discharge today for rehab. She will need repeat blood work in a week to monitor her anemia. She will also need a panen
--- NOTE | 2021-02-09 15:39 | PC.NURSE ---
THIS RN PROVIDED D/C INSTRUCTIONS TO EMILIA AT [facility]. NO NEW NEEDS OR CONCERNS DURING D/C.
== END 2021-02-09 15:23 ==
LOC: ER 09:55 → 2ND 12:12
PROVIDERS: Physician Assistant; Admitting Provider Family Medicine; Emergency Provider Family Medicine; PCP Family Medicine; Visit Provider Family Medicine
DX: G93.40 Encephalopathy, unspecified (principal); J18.9 Pneumonia, unspecified organism; E03.9 Hypothyroidism, unspecified; E11.9 Type 2 diabetes mellitus without complications; N18.30 Chronic kidney disease, stage 3 unspecified; E11.22 Type 2 diabetes mellitus with diabetic chronic kidney disease; I12.9 Hypertensive chronic kidney disease with stage 1 through stage 4 chronic kidney disease, or unspecified chronic kidney disease; Z79.899 Other long term (current) drug therapy; Z79.4 Long term (current) use of insulin; N39.0 Urinary tract infection, site not specified; D64.9 Anemia, unspecified; G45.8 Other transient cerebral ischemic attacks and related syndromes
CPT/HCPCS: 36415; 70450; 71045; 71046; 71275; 80048; 80053; 80305; 82962; 83605; 84436; 84443; 84484; 85025; 87040; 87086; 87088; 87186; 87581; 87633; 87798; 93005; 93306; 93880; 96365; 97116; 97162; 97530; 99284; G0378; J0456; J2405; Q9967; U0003

== ENCOUNTER → 2021-03-21 10:30 | Outpatient (CLI) | payer MEDICARE, OTHER, SELFPAY ==
[2021-03-21 11:48] LABS: Free T4 (Free Thyroxine) 1.54 ng/dl (0.78-2.19)
[2021-03-21 12:00] LABS: Hemoglobin A1C 6.2 % (4.0-6.0)
[2021-03-21 17:04] LABS: Thyroid Stimulating Hormone 3.55 uIU/mL (0.465-4.68)
[2021-03-22 09:13] LABS: Triiodothyronine (T3) Free 2.1 pg/mL (2.0-4.4)
[2021-03-22 18:13] LABS: Basophils # 0.1 K/mm3 (0-0.2); Eosinophils # 0.2 K/mm3 (0.0-0.4); Eosinophils % 2.2 % (0.1-12.0); Hematocrit 29.4 % (37.0-47.0); Hemoglobin 9.7 g/dL (12.2-16.2); Lymphocytes # 1.6 K/mm3 (0.7-4.5); Lymphocytes % 19.7 % (10-50); Mean Corpuscular Hemoglobin 31.2 pg (27.0-31.2); Mean Corpuscular Volume 94.6 fl (81-99); Mean Platelet Volume 10.4 fl (7.4-10.4); Monocytes # 0.5 K/mm3 (0.1-1.0); Monocytes % 6.4 % (1.7-9.3); Neutrophils # 5.9 K/mm3 (1.8-7.8); Neutrophils % 70.7 % (37.0-80.0); Platelet Count 284 K/mm3 (142-424); Red Blood Count 3.11 M/mm3 (4.20-5.40); Red Cell Distribution Width 14.4 % (11.5-17.5); White Blood Count 8.3 K/mm3 (4.8-10.8)
[2021-03-22 18:17] LABS: Chloride 115 mmol/L (98-107); Sodium 144 mmol/L (136-145)
[2021-03-22 18:20] LABS: Alanine Aminotransferase 18 U/L (12-78); Albumin Level 3.6 g/dl (3.5-5.0); Albumin/Globulin Ratio 1.2 (1.1-1.8); Alkaline Phosphatase 119 U/L (38-126); Anion Gap 17.3 mEq/L (5-15); Aspartate Amino Transferase 23 U/L (14-36); Bilirubin,Total 0.3 mg/dl (0.2-1.3); Blood Urea Nitrogen 35 mg/dl (7-17); Calcium 9.1 mg/dl (8.4-10.2); Carbon Dioxide 18 mmol/L (22.0-30.0); Estimated Glomerular Filt Rate 31 ml/min (>60); GFR (African American) 37 ML/MIN (>60); Glucose 99 mg/dl (74-100); Iron 52 ug/dL (37-170); Total Protein,Serum 6.6 g/dl (6.3-8.2)
[2021-03-22 20:47] LABS: Potassium 6.3 mmoL/L (3.5-5.1)
== END ==
PROVIDERS: Visit Provider Otolaryngology
DX: Z79.899 Other long term (current) drug therapy (principal); E03.9 Hypothyroidism, unspecified; E11.9 Type 2 diabetes mellitus without complications; Z79.4 Long term (current) use of insulin
CPT/HCPCS: 36415; 80053; 83036; 83540; 84439; 84443; 84481; 85025

== ENCOUNTER → 2021-03-24 11:28 | Outpatient (CLI) | payer MEDICARE, OTHER, SELFPAY ==
[2021-03-24 11:58] LABS: Anion Gap 11.2 mEq/L (5-15); Blood Urea Nitrogen 31 mg/dl (7-17); Calcium 9.2 mg/dl (8.4-10.2); Carbon Dioxide 27 mmol/L (22.0-30.0); Chloride 110 mmol/L (98-107); Estimated Glomerular Filt Rate 33 ml/min (>60); GFR (African American) 40 ML/MIN (>60); Glucose 171 mg/dl (74-100); Potassium 5.2 mmoL/L (3.5-5.1); Sodium 143 mmol/L (136-145)
== END ==
PROVIDERS: Visit Provider Internal Medicine Cardiovascular Disease
DX: D64.9 Anemia, unspecified (principal); E11.69 Type 2 diabetes mellitus with other specified complication; E87.5 Hyperkalemia; I10 Essential (primary) hypertension; I25.10 Atherosclerotic heart disease of native coronary artery without angina pectoris; R06.00 Dyspnea, unspecified; R60.9 Edema, unspecified
CPT/HCPCS: 36415; 80048

== ENCOUNTER 2021-03-30 22:02 | Inpatient (IN) | payer MEDICARE, OTHER, SELFPAY ==
[2021-03-30 22:04] VITALS: BP 196/81; PULSE 80; RESP 18; O2SAT 95; BMI 29.1
--- NOTE | 2021-03-30 22:04 | CT_ITS ---
PROCEDURE INFORMATION: Exam: CT Head Without Contrast Exam date and time: 03/30/2021 10:04 PM Age: 80 years old Clinical indication: Altered mental status/memory loss; Patient HX: AMS. PT states no HX of stroke TECHNIQUE: Imaging protocol: Computed tomography of the head without contrast. 3D rendering (Not supervised by radiologist): MIP and/or 3D reconstructed images were created by the technologist. Radiation optimization: All CT scans at this facility use at least one of these dose optimization techniques: automated exposure control; mA and/or kV adjustment per patient size (includes targeted exams where dose is matched to clinical indication); or iterative reconstruction. COMPARISON: CT HEAD/BRAIN WO CON 02/04/2021 9:06 AM FINDINGS: Brain: No parenchymal hematoma. Mild patchy periventricular low attenuation suggesting sequela of chronic small vessel ischemia. No acute-appearing loss of vasquez-white differentiation. No midline shift. Extra-axial space: Unremarkable. No fluid collection or mass. Cerebral ventricles: Within expected limits for age. No ventricular outflow obstruction. Paranasal sinuses: Visualized sinuses are unremarkable. No fluid levels. Mastoid air cells: Visualized mastoid air cells are well aerated. Bones/joints: No depressed or calvarial fracture. Soft tissues: Unremarkable. IMPRESSION: 1. No CT evidence of acute ischemia. No intracranial hemorrhage. 2. Probable mild sequela of chronic small vessel ischemia.
--- NOTE | 2021-03-30 22:04 | XR_ITS ---
PROCEDURE INFORMATION: Exam: XR Chest Exam date and time: 03/30/2021 10:04 PM Age: 80 years old Clinical indication: Shortness of breath; Additional info: AMS, cough TECHNIQUE: Imaging protocol: XR of the chest. Views: 1 view. COMPARISON: CR XR CHEST 2V 02/07/2021 2:19 PM FINDINGS: Lungs: Unchanged linear scarring in the lingula. Mild bilateral lower lung predominant interstitial coarsening, similar to prior. No airspace consolidation. Pleural spaces: No pleural effusion. No pneumothorax. Heart/Mediastinum: Unchanged cardiomegaly. Aortic atherosclerosis. Bones/joints: Osteopenia. Chronic deformities of the bilateral proximal humeri. IMPRESSION: No significant interval change since 02/07/2021. No acute abnormality identified.
--- NOTE | 2021-03-30 22:08 | HMH.EDGENADL ---
ED Disposition Clinical Impression: Encephalopathy Altered mental status Qualifiers: Altered mental status type: disorientation Qualified Code(s): R41.0 - Disorientation, unspecified Disposition: Admitted As Inpatient Condition on Discharge: Fair Instructions: DI for Altered Mental Status Referrals: Harry Cotter MD [Primary Care Provider] - Time of Disposition: - Critical Care Critical Care Time: No Attestation: On , the high probability of a clinically significant, sudden or life threatening deterioration of the following system(s) required my full and direct attention, intervention and personal management. The time I documented below is in addition to time spent performing reported procedures but includes the following listed in this critical care notation. Medical Decision Making - Medical Records Medical records reviewed: Yes: I reviewed the patient's medical records. - Wojciech Inquiry Pt receiving controlled substance: No Vital Signs: 03/30/21 22:04 03/30/21 23:08 03/30/21 23:30 Pulse Rate 80 82 Pulse Rate [Right Brachial] 80 Respiratory Rate 18 Blood Pressure 193/83 H 194/85 H Blood Pressure [Right Arm] 196/81 H Blood Pressure Mean [Right Arm] 119 Blood Pressure Source [Right Arm] Automatic Cuff Blood Pressure Position [Right Arm] Sitting 02 Sat by Pulse Oximetry 95 94 L 95 Oxygen Delivery Method Room Air 03/31/21 00:00 03/31/21 00:30 03/31/21 01:00 Pulse Rate 81 81 79 Pulse Rate [Right Brachial] Respiratory Rate Blood Pressure 180/77 H 184/77 H 165/67 H Blood Pressure [Right Arm] Blood Pressure Mean [Right Arm] Blood Pressure Source [Right Arm] Blood Pressure Position [Right Arm] 02 Sat by Pulse Oximetry 95 95 95 Oxygen Delivery Method 03/31/21 01:31 03/31/21 02:00 03/31/21 02:30 Pulse Rate 73 81 78 Pulse Rate [Right Brachial] Respiratory Rate 13 12 Blood Pressure 144/55 H 161/66 H 153/64 H Blood Pressure [Right Arm] Blood Pressure Mean [Right Arm] Blood Pressure Source [Right Arm] Blood Pressure Position [Right Arm] 02 Sat by Pulse Oximetry 96 95 94 L Oxygen Delivery Method - Lab Data Lab Results 03/30/21 20:28: WBC 5.9, RBC 3.40 L, Hgb 10.6 L, Hct 31.8 L, MCV 93.4, MCH 31.3 H, MCHC 33.5, RDW 14.2, Plt Count 315, MPV 7.9, Neut % (Auto) 60.9, Lymph % (Auto) 28.1, [place] % (Auto) 8.4, Eos % (Auto) 1.9, Baso % (Auto) 0.7, Neut # (Auto) 3.6, Lymph # (Auto) 1.6, [place] # (Auto) 0.5, Eos # (Auto) 0.1, Baso # (Auto) 0.0 03/30/21 20:28: Sodium 144, Potassium 4.2, Chloride 107, Carbon Dioxide 28, Anion Gap 13.2, BUN 37 H, Creatinine 1.50 H, Estimated Creat Clear 37, Estimated GFR 33 L, Est GFR ( Amer) 40 L, Glucose 194 H, Calcium 9.3, Total Bilirubin 0.5, AST 29, ALT 20, Alkaline Phosphatase 113, Total Protein 6.8, Albumin 3.7, Globulin 3.1, Albumin/Globulin Ratio 1.2 03/30/21 20:28: Lactate 1.7 03/30/21 20:28: Troponin I 0.01, Lipase 220 03/30/21 20:28: NT-Pro-B Natriuret Pep 473 H 03/30/21 22:04: POC Glucose 194 H 03/30/21 22:20: Urine Color Yellow, Urine Appearance Clear, Urine pH 6.5, Ur Specific [place] 1.015, Urine Protein Negative, Urine Glucose (UA) Negative, Urine Ketones Negative, Urine Blood Negative, Urine Nitrate Negative, Urine Bilirubin Negative, Urine Urobilinogen 0.2, Ur Leukocyte Esterase Negative, Urine RBC None, Urine WBC Occasional, Ur Squamous Epith Cells 3-5, Urine Bacteria None 03/30/21 22:20: SARS-CoV-2 (PCR) Not detected, Influenza A Untype (PCR) Not detected, Influenza Type B (PCR) Not detected 03/31/21 00:59: Troponin I 0.02 Result diagrams: 03/30/21 20:28 03/30/21 20:28 Orders (Tests/Meds): ED MEDICATIONS Generic Name Dose Route Start Last Admin Trade Name Freq PRN Reason Stop Dose Admin Methylprednisolone Sodium Succinate 125 mg 03/31/21 03:39 Methylprednisolone Sod Succ 125mg Vial IV 03/31/21 03:40 ONCE ONE ORDERS Category Date Time Status CT angio he
--- NOTE | 2021-03-30 22:10 | ECG_ITS ---
APPROVED REPORT Exam: Resting ECG HR:74 bpm ECG Measurements Heart Rate 74 AXES MI 178 P 13 QRSd 98 QRS -31 QT 432 T 4 QTc 479 Conclusion Normal sinus rhythm Left axis deviation Incomplete right bundle branch block Abnormal ECG Electronically signed by : John Rosado, 04/01/2021 07:27:28
[2021-03-30 22:27] LABS: POC Glucose,Bedside 194 (70-110)
[2021-03-30 22:28] LABS: Microscopic, Urine URINE MICROSCOPIC (MICROSCOPIC)
[2021-03-30 22:30] LABS: Coronavirus 19, PCR Not Detected (NotDetected); Influenza A, PCR Not Detected (NotDetected); Influenza B, PCR Not Detected (NotDetected)
[2021-03-30 22:34] LABS: Appearance,Urine CLEAR (Clear); Bilirubin,Urine Negative (Negative); Blood, Urine Negative (Negative); Color,Urine YELLOW (Yellow); Glucose,Urine (UA) Negative (Negative); Ketones,Urine Negative (Negative); Leukocyte Esterase,Urine Negative (Negative); Nitrate,Urine Negative (Negative); PH,Urine 6.5 (5.0-8.5); Protein,Urine Negative (Negative); Specific Gravity, Urine 1.015 (1.005-1.030); Urobilinogen,Urine 0.2 EU/dl (0.2)
[2021-03-30 22:47] LABS: Basophils % 0.7 % (0.1-2.0); Eosinophils # 0.1 K/mm3 (0.0-0.4); Eosinophils % 1.9 % (0.1-12.0); Hematocrit 31.8 % (37.0-47.0); Hemoglobin 10.6 g/dL (12.2-16.2); Lymphocytes # 1.6 K/mm3 (0.7-4.5); Lymphocytes % 28.1 % (10-50); Mean Corpuscular HGB Conc 33.5 g/dL (31.8-35.4); Mean Corpuscular Hemoglobin 31.3 pg (27.0-31.2); Mean Corpuscular Volume 93.4 fl (81-99); Mean Platelet Volume 7.9 fl (7.4-10.4); Monocytes # 0.5 K/mm3 (0.1-1.0); Monocytes % 8.4 % (1.7-9.3); Neutrophils # 3.6 K/mm3 (1.8-7.8); Neutrophils % 60.9 % (37.0-80.0); Platelet Count 315 K/mm3 (142-424); Red Cell Distribution Width 14.2 % (11.5-17.5); White Blood Count 5.9 K/mm3 (4.8-10.8)
[2021-03-30 22:50] LABS: Alanine Aminotransferase 20 U/L (12-78); Albumin Level 3.7 g/dl (3.5-5.0); Albumin/Globulin Ratio 1.2 (1.1-1.8); Alkaline Phosphatase 113 U/L (38-126); Anion Gap 13.2 mEq/L (5-15); Aspartate Amino Transferase 29 U/L (14-36); Bilirubin,Total 0.5 mg/dl (0.2-1.3); Blood Urea Nitrogen 37 mg/dl (7-17); Calcium 9.3 mg/dl (8.4-10.2); Carbon Dioxide 28 mmol/L (22.0-30.0); Chloride 107 mmol/L (98-107); Creatinine Clearance Estimated 37 mL/min (50-200); Estimated Glomerular Filt Rate 33 ml/min (>60); GFR (African American) 40 ML/MIN (>60); Globulin 3.1 g/dL (1.3-3.2); Glucose 194 mg/dl (74-100); Lipase 220 U/L (23-300); Potassium 4.2 mmoL/L (3.5-5.1); Sodium 144 mmol/L (136-145); Total Protein,Serum 6.8 g/dl (6.3-8.2)
[2021-03-30 22:51] LABS: Lactic Acid 1.7 mmol/L (0.7-2.1)
[2021-03-30 23:00] LABS: NT Pro Brain Natriuretic Pep. 473 pg/mL (0-450)
[2021-03-30 23:04] LABS: Troponin I 0.01 ng/ml (0.00-0.034)
[2021-03-30 23:08] VITALS: BP 193/83; PULSE 80; O2SAT 94
[2021-03-30 23:30] VITALS: BP 194/85; PULSE 82; O2SAT 95
[2021-03-30 23:40] LABS: WBC,Urine Occasional #/hpf (0-3)
[2021-03-31] VITALS (16 sets, daily range): BP systolic 144–184; BP diastolic 55–92; PULSE 71–96; RESP 12–20; TEMP 36.3–37.1; O2SAT 94–99; BMI 33.8; BMI 33.7
--- NOTE | 2021-03-31 00:21 | CT_ITS ---
PROCEDURE INFORMATION: Exam: CT Angiography Neck With Contrast Exam date and time: 03/31/2021 12:21 AM Age: 80 years old Clinical indication: Weakness; Additional info: AMS, speech difficulty TECHNIQUE: Imaging protocol: Computed tomography angiography of the neck with contrast. 3D rendering (Not supervised by radiologist): MIP and/or 3D reconstructed images were created by the technologist. Radiation optimization: All CT scans at this facility use at least one of these dose optimization techniques: automated exposure control; mA and/or kV adjustment per patient size (includes targeted exams where dose is matched to clinical indication); or iterative reconstruction. Contrast material: ISOVUE 370; Contrast volume: 100 ml; Contrast route: INTRAVENOUS (IV); COMPARISON: US CA CAROTID DUPLEX BI 02/06/2021 6:48 AM FINDINGS: THORACIC VESSELS: Atherosclerotic disease of the visualized aortic arch without aortic aneurysm or dissection. Low origin of the left vertebral artery from the aortic arch/proximal LEFT subclavian artery (normal variant). Calcific plaque without significant narrowing of the origin of the neck vessels. . CAROTID VESSELS: Common carotid arteries: Eccentric calcific/noncalcific plaque along the juarez of the common carotid arteries are without flow limiting stenosis. . Cervical internal CAROTID arteries: Kiru-ej-pffydsuj RIGHT, moderately severe LEFT calcific/noncalcific plaque at the carotid bifurcation extending to the carotid bulb with approximately 60-70% focal narrowing at the origin of the LEFT internal carotid artery and less than 50% narrowing on the RIGHT. No evidence of an aneurysm or a dissection. . VERTEBRAL VESSELS: VERTEBRAL arteries: Cervical vertebral arteries are without flow limiting stenosis. . OTHER STRUCTURES: Scarring, groundglass opacities, septal and pleural thickening in the lung apices. Severe coronary arterial calcification/coronary stents. Mild wall thickening of the thoracic esophagus suggestive of esophagitis/reflux. Osteopenia with chronic degenerative changes in the visualized spine and shoulder joint(s). IMPRESSION: 1. Moderate chronic atherosclerotic disease, calcific/noncalcific plaque at the carotid bifurcation resulting in approximately 60-70% narrowing on the LEFT and less than 50% narrowing on the RIGHT. 2. No acute flow-limiting stenosis of the vertebral arteries. 3. Other nonemergent/incidental findings as described. REFERENCES: NASCET CRITERIA. The degree of internal carotid artery stenosis is based on NASCET criteria. Normal is no stenosis. Mild is less than 50% stenosis. Moderate is 50-69% stenosis. Severe is 70% to 99% stenosis. Total occlusion is no detectable patent lumen.
--- NOTE | 2021-03-31 00:21 | CT_ITS ---
PROCEDURE INFORMATION: Exam: CT Angiography Head With Contrast, Arteriography Exam date and time: 03/31/2021 12:21 AM Age: 80 years old Clinical indication: Pain; Headache; Additional info: AMS, speech difficulty TECHNIQUE: Imaging protocol: Computed tomography angiography of the head with contrast. Exam focused on the arteries. 3D rendering (Not supervised by radiologist): MIP and/or 3D reconstructed images were created by the technologist. Radiation optimization: All CT scans at this facility use at least one of these dose optimization techniques: automated exposure control; mA and/or kV adjustment per patient size (includes targeted exams where dose is matched to clinical indication); or iterative reconstruction. Contrast material: SIOVUE 370; Contrast volume: 100 ml; Contrast route: INTRAVENOUS (IV); COMPARISON: CT HEAD/BRAIN WO CON 03/30/2021 10:36 PM FINDINGS: Intracranial INTERNAL CAROTID arteries: Moderate predominantly calcific plaque in the mid-distal ICA with chronic narrowing of the internal carotid arteries without acute flow-limiting stenosis. internal carotid arteries are without flow limiting stenosis. . MIDDLE cerebral arteries: Irregularity of the M1/M2 segments of the MCA with resultant [id number]-np-vyicqpra focal areas of chronic narrowing of the MCA without acute flow-limiting stenosis. . ANTERIOR cerebral arteries: A1, A2 and their distal visualized branches are without flow limiting stenosis. Anterior communicating artery is unremarkable. . VERTEBRAL arteries: Intracranial vertebral arteries and their visualized branches are without flow limiting stenosis. . BASILAR artery: The basilar artery and its visualized proximal branches are without flow limiting stenosis. . POSTERIOR cerebral arteries: Irregularity of the P1/P2 segments of the BROOM WORKER with resultant ukoi-vj-yrztqgih focal areas of chronic narrowing of the BROOM WORKER without acute flow-limiting stenosis. IMPRESSION: Chronic atherosclerotic disease WITHOUT acute flow-limiting stenosis or large vessel occlusion of the CENTRAL/major intracranial arteries. COMMENTS: Possibility of early and/or small acute/subacute ischemic infarct cannot be excluded. Recommend followup with MRI if persistent/worsening focal neurological deficits.
--- NOTE | 2021-03-31 01:10 | PC.NURSE ---
MD Cervantes notified of Radiology unable to scan with contrast d/t GFR of 33. Radiology will call and s/w radiologist regarding case.
[2021-03-31 01:32] LABS: Troponin I 0.02 ng/ml (0.00-0.034)
--- NOTE | 2021-03-31 02:29 | HMH.ITSTN ---
GFR 33- I have made contact w edith, waiting on a call back
--- NOTE | 2021-03-31 02:44 | PC.NURSE ---
received info from radiology that angio head neck was approved.
--- NOTE | 2021-03-31 03:50 | HMH.ITSTN ---
waiting on pt to be pre medicated- allergic to contrast
--- NOTE | 2021-03-31 03:58 | PC.NURSE ---
Unable to confirm home medication list d/t pt AMS and family unaware of meds and not able to bring at this time.
--- NOTE | 2021-03-31 04:00 | PC.NURSE ---
pt to CT
--- NOTE | 2021-03-31 04:45 | PC.NURSE ---
pt cts completed.
--- NOTE | 2021-03-31 05:24 | PC.NURSE ---
patient up to floor via stretcher.
--- NOTE | 2021-03-31 06:18 | PC.NURSE ---
Spoke with daughter on phone. Son will bring home medications this AM for reconciliation
[2021-03-31 06:44] LABS: Basophils % 0.7 % (0.1-2.0); Eosinophils # 0.1 K/mm3 (0.0-0.4); Eosinophils % 1.3 % (0.1-12.0); Hematocrit 33.8 % (37.0-47.0); Hemoglobin 11.3 g/dL (12.2-16.2); Lymphocytes # 1.5 K/mm3 (0.7-4.5); Mean Corpuscular HGB Conc 33.4 g/dL (31.8-35.4); Mean Corpuscular Volume 92.8 fl (81-99); Mean Platelet Volume 8.1 fl (7.4-10.4); Monocytes # 0.1 K/mm3 (0.1-1.0); Monocytes % 2.4 % (1.7-9.3); Neutrophils # 4.1 K/mm3 (1.8-7.8); Neutrophils % 70.7 % (37.0-80.0); Platelet Count 299 K/mm3 (142-424); Red Blood Count 3.64 M/mm3 (4.20-5.40); Red Cell Distribution Width 14.2 % (11.5-17.5); White Blood Count 5.8 K/mm3 (4.8-10.8)
[2021-03-31 06:59] LABS: Anion Gap 14.3 mEq/L (5-15); Blood Urea Nitrogen 37 mg/dl (7-17); Calcium 9.4 mg/dl (8.4-10.2); Carbon Dioxide 27 mmol/L (22.0-30.0); Chloride 108 mmol/L (98-107); Chol/HDL Ratio 3.9 (1-3.5); Cholesterol 157 mg/dl (140-200); Creatinine Clearance Estimated 46 mL/min (50-200); Estimated Glomerular Filt Rate 36 ml/min (>60); GFR (African American) 44 ML/MIN (>60); Glucose 161 mg/dl (74-100); HDL Cholesterol 40 mg/dl (40-60); Potassium 4.3 mmoL/L (3.5-5.1); Sodium 145 mmol/L (136-145); Triglycerides 148 mg/dl (30-150); VLDL Cholesterol 30 mg/dL (0-40)
[2021-03-31 07:10] LABS: Direct LDL Cholesterol 74.82 mg/dL (100-129)
--- NOTE | 2021-03-31 08:05 | HMH.PHAVTE ---
[facility] Pharmacy VTE Monitoring - Patient Demographics Admission date: 03/31/21 Report Date: 03/31/21 Time: 08:05 Allergies/Adverse Reactions: Patient Allergies Iodinated Contrast Media Allergy (Intermediate, Verified 03/24/21 10:44) naproxen [NAPROXEN] Allergy (Mild, Verified 03/24/21 10:44) Height: 1.65 m Weight: 92.221 kg Patient Problems: Current Active Problems Encephalopathy (Acute) Altered mental status (Acute) - VTE Risk Labs: VTE Related Lab Results Hgb 11.3 g/dL (12.2-16.2) L 03/31/21 06:37 Hct 33.8 % (37.0-47.0) L 03/31/21 06:37 Plt Count 299 K/mm3 (142-424) 03/31/21 06:37 BUN 37 mg/dl (7-17) H 03/31/21 06:37 Creatinine 1.40 mg/dl (0.52-1.04) H 03/31/21 06:37 Estimated Creat Clear 46 mL/min (50-200) 03/31/21 06:37 Was VTE Risk Assessment Performed: Yes VTE Score: 4 VTE Risk Level: Very Low Risk Clinical Trial Participant: No - Prophylaxis VTE Prophylaxis Ordered?: Yes Types of VTE Prophylaxis: TEDS Knee High Location of Applied Device: Bilateral Lower Extremeties
--- NOTE | 2021-03-31 09:33 | HMH.HP ---
*Admission Date: 03/31/21 <Meg Lopez - 03/31/21 09:45> *Chief complaint: AMS <Meg Lopez - 03/31/21 09:45> *History of present illness: 80-year-old female presenting to the emergency department with altered mental status. Patient's family called 911 for her this evening. She has been getting more confused over the last few days. Now having repetitive questioning. She fell earlier today, onto her bottom. Family does not think she struck her head. She now seems confused, does not know who her family members are. Something like this happened 2 months ago. She was diagnosed with nonspecific encephalopathy. Had to go to a shelter for a short period of time. Family denies vomiting, fever. She has had decreased appetite. She is awake during the night and sleeping during the day. No new medications. They have not noticed slurred speech. No numbness, weakness, in her arms or legs Patient clinically stable on arrival. Hypertensive. Other vital signs within normal limits. Differential diagnoses are broad including traumatic injury, intracranial bleed. Metabolic derangement. Anemia. Renal insufficiency. Urinary tract infection. Will obtain CBC, CMP, chest x-ray, EKG, troponin profile, noncontrast head CT, urinalysis. Initial laboratory results are reassuring. Creatinine is 1.5, similar to baseline. BUN slightly elevated. No anemia. No electrolyte abnormalities. Noncontrast head CT shows chronic small vessel disease. No bleed. No mass. Spoke with patient's son. He says that her current mental status is very different than what it was a few days ago. Has been a gradual decline, but cannot exclude remote infarct. Symptom duration puts her out of the window for TPA. Clinical exam quite inconsistent with large vessel occlusion. Will obtain CT angiography of the head and neck. Patient will be admitted for further management of altered mental status. (above as per ER doctor as patient is unable to relay the events of the past few days and no family is present) Her head CTA showed chronic atherosclerotic disease without acute flow-limiting stenosis or large vessel occlusion of the central/major intracranial arteries. Radiology recommended a follow-up MRI if symptoms persisted. Her neck CTA showed moderate chronic atherosclerotic disease at the carotid bifurcation resulting in approximately 60 to 70% narrowing on the left and less than 50 on the right. This morning the patient will open her eyes and answers yes or no to some questioning, but is still confused and altered in her mental status <Meg Lopez 03/31/21 09:45> [facility] History I have reviewed the patient's past medical history: Yes <Meg Lopez 03/31/21 09:45> Medical History: Reports:: Cancer, Congestive Heart Failure, Coronary Artery Disease, Deep Vein Thrombosis, Diabetes Mellitus Type 2, Hyperlipidemia, Hypertension Denies:: Diabetes Mellitus Type 1, Internal Pacemaker, MRSA, Seizures <Meg Lopez 03/31/21 09:45> *Have you ever received a pneumonia vaccine?: No (unable to obtain) <Meg Lopez 03/31/21 09:45> *Have you received a flu vaccine this season?: No (unableto obtain) <Meg Lopez 03/31/21 09:45> Other Medical History: Reports: Anemia, Arthritis, Hypothyroidism, Thyroid Disease <Meg Lopez 03/31/21 09:45> Other Surgeries: Yes: Appendectomy, Cardiac Catheterization, Cholecystectomy, Colonoscopy, Coronary Stent, Hernia Repair, Hysterectomy-Total, Skin Cancer Excision, Other. No: Pacemaker <Meg Lopez 03/31/21 09:45> Amputation: No <Meg Lopez 03/31/21 09:45> - *Social History Smoking Status: Never smoker <Meg Lopez 03/31/21 09:45> Alcohol Intake: never <Meg Lopez 03/31/21 09:45> Alcohol Intake Frequency:: other <Meg Lopez 03/31/21 09:45> Substance Use Type: denies use <Meg Lopez 03/31/21 09:45> *Occupational Status:: retired <Meg Lopez 03/31/21 09:45> Housing: shelter <Ajith
--- NOTE | 2021-03-31 09:39 | MR_ITS ---
PROCEDURE: MR HEAD/BRAIN WO CON CLINICAL INDICATION: R/O CVA Confusion, altered mental status COMPARISON: CT CT HEAD/BRAIN WO CON from 03/30/2021 TECHNIQUE: Routine multiplanar multi echo sequences are performed without gadolinium enhancement. FINDINGS: There is a small focal area of increased diffusion signal involving the medial aspect of the left cerebellum posteriorly demonstrate decreased ADC signal consistent with an area of acute infarction. This area is small measuring 8 by 4 mm. No other areas of restricted diffusion are evident. There is generalized atrophy with areas of periventricular increased T2 signal. No evidence of acute intracranial hemorrhage midline shift or mass effect. No hydrocephalus. The cerebellopontine angles have an unremarkable appearance. There is a small retention cyst in the sphenoid sinus on the right. The pituitary, corpus callosum, and craniocervical junction have an unremarkable appearance. IMPRESSION: Small focus of acute infarction in the left cerebellum. Dictated by: Chris Jha MD 03/31/2021 11:33 Chris Jha MD in [place] 03/31/2021 11:33
--- NOTE | 2021-03-31 09:44 | HMH.PHAINT ---
MEDICATION RECONCILIATION COMPLETED USING EXTERNAL PHARMACY FILL HISTORY, OFFICE VISIT 03/24/21, AND LIST FAXED FROM PRIMARY CARE OFFICE
[2021-03-31 12:05] LABS: POC Glucose,Bedside 161 (70-110)
[2021-03-31 12:05] LABS: POC Glucose,Bedside 216 (70-110)
--- NOTE | 2021-03-31 15:17 | PC.NURSE ---
Pt was alert to self only on morning assessment and unable to follow commands. She is now alert and oriented x4 and able to follow commands without difficulty. She is weak, right side greater than left. NO facial droop noted. She has slept the majority of shift. Bedside swallow eval performed and no deficiencies noted. Meds were taken whole with water. Dillard is to bedside draining clear, yellow urine. Family has been to visit and is supportive. Will continue to monitor.
--- NOTE | 2021-03-31 16:01 | HMH.PTEV ---
Physical Therapy Evaluation Rehab PT IP Evaluation Start: 03/31/21 15:26 Freq: ONCE Status: Active Protocol: Document 03/31/21 15:57 PHORNE (Rec: 03/31/21 16:00 PHORNE [id number]) Subjective/History History History 80 yowf adm to [facility] with general weakness and AMS at home. MRI show small L cerebellar infarct. Pt was more alert this pm and reports she lives with family and is independent with all mobility without AD at baseline. Subjective Subjective Pt reports feeling very tired this pm. Rehab PT IP Eval Objective Appearance Patient Behavior Appropriate Patient Orientation Person,Place,Time Difficulty following instructions none Speech Pattern Clear Ambulation Patient Able to Ambulate No Balance Ability to Arise Able, uses arms to help Sitting Balance Steady, safe Standing Balance Unsteady Dynamic Sitting Balance Ability Fair Dynamic Standing Balance Ability Poor Transfers Bed Transfer Ability Moderate x 1 (50% assist) Chair Transfer Ability Maximum x 1 (75% assist) Sit to Stand Bed Transfer Ability Maximum x 1 (75% assist) Sit to Stand Chair Transfer Ability Maximum x 1 (75% assist) ROM All Extremities PT ROM Status WFL MMT All Extremities PT MMT ABN Abnormal MMT Grade grossly 3/5 Rehab PT IP prob,goals,plan Problems Date of Evaluation: 03/31/21 PT IP Problems Bed Mobility,Transfers,Gait Rehab Potential Rehab Potential Fair Plan PT Intervention Plan Bed Mobility,Transfers,Gait, Therapeutic Exercise PT Plan Frequency BID Duration LOS Discharge Goals Bed Transfer Ability Minimal x 1 (25% assist) Sit to Stand Chair Transfer Ability Moderate x 1 (50% assist) Ambulation Assistive Device Rolling Walker Ambulation Distance (feet) 10 Discharge Plan PT Discharge Plan Pt is currently most appropriate for rehab placement once medically stable. G -code Required No Eval Complexity Eval Charge Codes 94091 - Moderate Complexity PHYSICIAN CERTIFICATION: I certify the specified therapy services for Dewayne Moctezuma are required, authorized, and reviewed every 30 days.
--- NOTE | 2021-03-31 16:13 | HMH.OTEV ---
OT Inpatient Evaluation Rehab OT IP Evaluation Start: 03/31/21 15:27 Freq: ONCE Status: Complete Protocol: Document 03/31/21 16:04 CINDY (Rec: 03/31/21 16:12 CINDY [id number]) Rehab OT IP Assessment Subjective History *Admission Date: 03/31/21 *Chief complaint: AMS *History of present illness: 80-year-old female presenting to the emergency department with altered mental status. Patient's family called 911 for her this evening. She has been getting more confused over the last few days. Now having repetitive questioning. She fell earlier today, onto her bottom. Family does not think she struck her head. She now seems confused, does not know who her family members are. Something like this happened 2 months ago. She was diagnosed with nonspecific encephalopathy. Had to go to a residential for a short period of time. Family denies vomiting, fever. She has had decreased appetite. She is awake during the night and sleeping during the day. No new medications. They have not noticed slurred speech. No numbness, weakness, in her arms or legs Patient clinically stable on arrival. Hypertensive. Other vital signs within normal limits. Differential diagnoses are broad including traumatic injury, intracranial bleed. Metabolic derangement . Anemia. Renal insufficiency. Urinary tract infection. Will obtain CBC, CMP, chest x-ray, EKG, troponin profile, noncontrast head CT, urinalysis. Initial laboratory results are reassuring. Creatinine is 1. 5, similar to baseline. BUN
[2021-03-31 17:53] LABS: POC Glucose,Bedside 253 (70-110)
[2021-04-01 00:11] LABS: POC Glucose,Bedside 347 (70-110)
[2021-04-01 04:00] VITALS: BP 151/63; PULSE 80; RESP 16; TEMP 37; O2SAT 97
[2021-04-01 05:00] VITALS: BMI 34.1
--- NOTE | 2021-04-01 05:07 | PC.NURSE ---
Patient was pleasant throughout shift and rested well. blood sugars were high and covered with sliding scale insulin. Patient complained of no pain. VSS. Good urine output. no further concerns
[2021-04-01 05:52] LABS: POC Glucose,Bedside 202 (70-110)
[2021-04-01 07:59] VITALS: BP 132/62; PULSE 71; RESP 16; TEMP 36.6; O2SAT 96
--- NOTE | 2021-04-01 08:44 | HMH.ACPN2 ---
Internal Medicine - PN: Subj *Date: 04/01/21 *Time: 08:44 Interval history: She rested better last night and is much more alert this morning and feels somewhat better. She is just tired . Denies pain. She had PT and OT eval's yesterday afternoon. Exam Vital signs and Labs for Last 24 Hours: Temp Pulse Resp BP Pulse Ox 97.9 F 71 16 132/62 96 04/01/21 07:59 04/01/21 07:59 04/01/21 07:59 04/01/21 07:59 04/01/21 07:59 Laboratory Results - last 24 hr 03/31/21 05:41: POC Glucose 161 H 03/31/21 11:35: POC Glucose 216 H 03/31/21 16:35: POC Glucose 253 H 03/31/21 20:18: POC Glucose 347 H* 04/01/21 05:44: POC Glucose 202 H I & O for Last 24 hours: Intake & Output 03/29/21 03/30/21 03/31/21 04/01/21 11:59 11:59 11:59 11:59 Intake Total 0 / 0 2209 / 2209 Output Total 400 / 400 1700 / 1700 Balance -400 / -400 509 / 509 Weight 203 lb 5 oz 205 lb Narrative: She is awake, alert, oriented x3. Color is good. Affect a bit flat. Lungs are clear anteriorly. Heart is regular. Air Carrier Maintenance Inspector strength is equal but weak bilaterally. She has decreased range of motion of both shoulders which is at baseline. Lower extremities show no edema. MRI yesterday confirmed a small left cerebellar stroke Assessment and Plan (1) Cerebellar stroke Status: Acute Category: Medical Code(s): I63.9 - Cerebral infarction, unspecified (2) Altered mental status Status: Acute Qualifiers: Altered mental status type: disorientation Qualified Code(s): R41.0 - Disorientation, unspecified Category: Medical Code(s): R41.82 - Altered mental status, unspecified (3) Hypothyroid Status: Chronic Qualifiers: Hypothyroidism type: unspecified Qualified Code(s): E03.9 - Hypothyroidism, unspecified Category: Medical Code(s): E03.9 - Hypothyroidism, unspecified (4) Renal insufficiency Status: Chronic Category: Medical Code(s): N28.9 - Disorder of kidney and ureter, unspecified (5) CAD (coronary artery disease) Status: Chronic Qualifiers: Coronary Disease-Associated Artery/Lesion type: [place] artery [place] vs. transplanted heart: [place] heart Associated angina: without angina Qualified Code(s): I25.10 - Atherosclerotic heart disease of [place] coronary artery without angina pectoris Category: Medical Code(s): I25.10 - Atherosclerotic heart disease of [place] coronary artery without angina pectoris (6) Diabetes mellitus Status: Chronic Qualifiers: Diabetes mellitus type: type 2 Diabetes mellitus care home insulin use: with long term care social worker use Diabetes mellitus complication status: with other specified complication Qualified Code(s): E11.69 - Type 2 diabetes mellitus with other specified complication; Z79.4 - longterm (current) use of insulin Category: Medical Code(s): E11.9 - Type 2 diabetes mellitus without complications (7) Hypertension Status: Chronic Qualifiers: Hypertension type: essential hypertension Qualified Code(s): I10 - Essential (primary) hypertension Category: Medical Code(s): I10 - Essential (primary) hypertension - Assessment and plan all Dx Assessment and Plan for all problems:: Patient has suffered a cerebellar stroke which accounts for her presenting symptoms. Today she is more alert and is oriented. She is still generally weak. She has been evaluated by PT and OT both of whom recommend skilled care rehab. We will discuss this further with the family.
[2021-04-01 11:19] LABS: POC Glucose,Bedside 233 (70-110)
[2021-04-01 15:04] VITALS: BP 137/66; PULSE 72; RESP 17; TEMP 36.8; O2SAT 98
--- NOTE | 2021-04-01 15:59 | PC.NURSE ---
Pt is alert and oriented to person, place, and situation. CB in reach. Family @ bedside. VSS. BS x 4, lungs cta. mumur. NAD. Pt denies pain and no severe weakness noted. Pt did have a lg bm, indwelling cath in place and draining yellow/clear u/o without difficulty. Process Technician are equal. Mx continues.
[2021-04-01 17:32] LABS: POC Glucose,Bedside 292 (70-110)
[2021-04-01 18:18] VITALS: BP 145/57; PULSE 77; RESP 18; TEMP 36.8; O2SAT 98
[2021-04-01 18:29] LABS: POC Glucose,Bedside 300 (70-110)
--- NOTE | 2021-04-01 18:46 | PC.NURSE ---
Pt was up to chair this afternoon. After having a BM, pt c/o of being woosy when standing up to bsc. VSS. Prn zofran given and pt is back in bed at this time and states she is feeling better than she was. Daughter at bedside currently.
[2021-04-01 19:58] VITALS: BP 140/61; PULSE 78; RESP 17; TEMP 36.8; O2SAT 97
[2021-04-01 20:08] LABS: POC Glucose,Bedside 270 (70-110)
--- NOTE | 2021-04-02 03:18 | PC.NURSE ---
A&OX3. PT UNAWARE OF DAY. NUCLEAR PHYSICIST STRONG AND EQUAL, ABLE TO FOLLOW COMMANDS. PT DOES WELL HELPING MOVE HERSELF IN BED, BUT IS X2 ASSIST TO BEDSIDE COMMODE. PT HAD SMALL BM THIS SHIFT. F/C PRESENT DRAINING LIGHT YELLOW URINE. SLEEPING MAJORITY OF SHIFT, VSS WILL CONTINUE TO MONITOR.
[2021-04-02 03:32] VITALS: BP 125/49; PULSE 71; RESP 16; TEMP 36.9; O2SAT 95
[2021-04-02 05:00] VITALS: BMI 35.2
[2021-04-02 06:06] LABS: POC Glucose,Bedside 186 (70-110)
[2021-04-02 07:37] VITALS: BP 104/49; PULSE 73; RESP 18; TEMP 36.9; O2SAT 96
--- NOTE | 2021-04-02 08:41 | HMH.ACPN2 ---
Internal Medicine - PN: Subj *Date: 04/02/21 *Time: 08:41 Interval history: She had a good day yesterday and slept well last night. She was able to sit up in the chair for a while yesterday. She did admit to feeling woozy when up. No complaints of headache, visual changes, or dysphagia. She is eating better. Staff reports a large bowel movement yesterday. Staff also reports seeing some blood in her stool. Exam Vital signs and Labs for Last 24 Hours: Temp Pulse Resp BP Pulse Ox 98.5 F 73 18 104/49 L 96 04/02/21 07:37 04/02/21 07:37 04/02/21 07:37 04/02/21 07:37 04/02/21 07:37 Laboratory Results - last 24 hr 04/01/21 11:10: POC Glucose 233 H 04/01/21 16:38: POC Glucose 292 H 04/01/21 18:17: POC Glucose 300 H 04/01/21 19:47: POC Glucose 270 H 04/02/21 05:55: POC Glucose 186 H I & O for Last 24 hours: Intake & Output 03/30/21 03/31/21 04/01/21 04/02/21 11:59 11:59 11:59 11:59 Intake Total 0 / 0 2209 / 2209 2020 Output Total 400 / 400 1700 / 1700 3155 / 3155 Balance -400 / -400 509 / 509 -1134 / -1134 Weight 203 lb 5 oz 205 lb 211 lb 7 oz Narrative: She is sitting up in the chair visiting with her daughter. She is alert and oriented. Speech is clear. Color is good. Lungs are clear. Heart is regular. Extremities no edema Assessment and Plan (1) Cerebellar stroke Status: Acute Category: Medical Code(s): I63.9 - Cerebral infarction, unspecified (2) Altered mental status Status: Acute Qualifiers: Altered mental status type: disorientation Qualified Code(s): R41.0 - Disorientation, unspecified Category: Medical Code(s): R41.82 - Altered mental status, unspecified (3) Hypothyroid Status: Chronic Qualifiers: Hypothyroidism type: unspecified Qualified Code(s): E03.9 - Hypothyroidism, unspecified Category: Medical Code(s): E03.9 - Hypothyroidism, unspecified (4) Renal insufficiency Status: Chronic Category: Medical Code(s): N28.9 - Disorder of kidney and ureter, unspecified (5) CAD (coronary artery disease) Status: Chronic Qualifiers: Coronary Disease-Associated Artery/Lesion type: [place] artery [place] vs. transplanted heart: [place] heart Associated angina: without angina Qualified Code(s): I25.10 - Atherosclerotic heart disease of [place] coronary artery without angina pectoris Category: Medical Code(s): I25.10 - Atherosclerotic heart disease of [place] coronary artery without angina pectoris (6) Diabetes mellitus Status: Chronic Qualifiers: Diabetes mellitus type: type 2 Diabetes mellitus ferry terminal agent insulin use: with m[facility]p use Diabetes mellitus complication status: with other specified complication Qualified Code(s): E11.69 - Type 2 diabetes mellitus with other specified complication; Z79.4 - intermediate (current) use of insulin Category: Medical Code(s): E11.9 - Type 2 diabetes mellitus without complications (7) Hypertension Status: Chronic Qualifiers: Hypertension type: essential hypertension Qualified Code(s): I10 - Essential (primary) hypertension Category: Medical Code(s): I10 - Essential (primary) hypertension - Assessment and plan all Dx Assessment and Plan for all problems:: Continue PT and OT. Remove Dillard. Resume Lantus. Continue sliding scale. Repeat labs in the morning. She will likely need skilled rehab before returning home.
[2021-04-02 11:54] LABS: POC Glucose,Bedside 276 (70-110)
--- NOTE | 2021-04-02 12:58 | PC.NURSE ---
Addendum entered by Gabriel Corbett RN 04/02/21 13:00: * murmur Original Note: This RN did make Dr. Cotter aware of heart mumur noted, small amt of blood noted in bm this am and requested an order for lantus. Dr. Cotter did restart lantus.
[2021-04-02 15:28] VITALS: BP 120/61; PULSE 70; RESP 18; TEMP 37.1; O2SAT 98
[2021-04-02 15:36] LABS: POC Glucose,Bedside 356 (70-110)
--- NOTE | 2021-04-02 18:45 | PC.NURSE ---
Pt alert and oriented to person, place and situation. RR even and unlabored. No acute changes this shift. Has voided since cervantes cath was taken out. Pt up to chiar. VSS.
[2021-04-02 19:40] VITALS: BP 129/36; PULSE 72; RESP 16; TEMP 37.7; O2SAT 100
[2021-04-02 20:03] LABS: POC Glucose,Bedside 289 (70-110)
--- NOTE | 2021-04-03 03:15 | PC.NURSE ---
A&OX3. IS NOT AWARE OF DATE. PT UP WITH X1 ASSIST TO BEDSIDE COMMODE. TOLERATES WELL. TOLERATING RA WELL. PT HAS SLEPT WELL MAJORITY OF SHIFT. NO C/O THUS FAR. STRENGTH AND ELECTRICIAN CHIEF EQUAL. ABLE TO FOLLOW COMMANDS WELL. VSS WILL CONTINUE TO MONITOR.
[2021-04-03 03:55] VITALS: BP 132/59; PULSE 67; RESP 15; TEMP 36.9; O2SAT 97
[2021-04-03 05:00] VITALS: BMI 34.7
[2021-04-03 05:32] LABS: POC Glucose,Bedside 192 (70-110)
[2021-04-03 07:01] LABS: Basophils # 0.1 K/mm3 (0-0.2); Basophils % 0.8 % (0.1-2.0); Eosinophils # 0.2 K/mm3 (0.0-0.4); Eosinophils % 2.4 % (0.1-12.0); Hematocrit 29.1 % (37.0-47.0); Hemoglobin 9.3 g/dL (12.2-16.2); Lymphocytes # 2.2 K/mm3 (0.7-4.5); Lymphocytes % 35.4 % (10-50); Mean Corpuscular Volume 93.6 fl (81-99); Mean Platelet Volume 7.6 fl (7.4-10.4); Monocytes # 0.4 K/mm3 (0.1-1.0); Monocytes % 6.3 % (1.7-9.3); Neutrophils # 3.4 K/mm3 (1.8-7.8); Platelet Count 220 K/mm3 (142-424); Red Blood Count 3.11 M/mm3 (4.20-5.40); Red Cell Distribution Width 13.6 % (11.5-17.5); White Blood Count 6.3 K/mm3 (4.8-10.8)
[2021-04-03 07:07] LABS: Anion Gap 11.2 mEq/L (5-15); Blood Urea Nitrogen 33 mg/dl (7-17); Calcium 8.4 mg/dl (8.4-10.2); Carbon Dioxide 27 mmol/L (22.0-30.0); Chloride 107 mmol/L (98-107); Creatinine Clearance Estimated 51 mL/min (50-200); Estimated Glomerular Filt Rate 39 ml/min (>60); GFR (African American) 48 ML/MIN (>60); Glucose 180 mg/dl (74-100); Potassium 4.2 mmoL/L (3.5-5.1); Sodium 141 mmol/L (136-145)
[2021-04-03 07:55] VITALS: BP 105/52; PULSE 68; RESP 18; TEMP 36.8; O2SAT 98
--- NOTE | 2021-04-03 08:03 | HMH.ACPN2 ---
<Edie Sparks - Last Filed: 04/03/21 08:03> Internal Medicine - PN: Subj *Date: 04/03/21 *Time: 08:03 Interval history: Patient states she did well yesterday. She set up in a chair for most of the day. She is eating without difficulty. She uses the bedside commode to void. She is concerned about elevated blood sugars. Continues to ask what happened to her and what caused her stroke. Repeat laboratory data this morning show normal electrolytes with a BUN of 33 and creatinine of 1.3. CBC show white blood cell count of 6300 with a hemoglobin of 9.3 and hematocrit of 29.1. Exam Vital signs and Labs for Last 24 Hours: Temp Pulse Resp BP Pulse Ox 98.3 F 68 18 105/52 L 98 04/03/21 07:55 04/03/21 07:55 04/03/21 07:55 04/03/21 07:55 04/03/21 07:55 Laboratory Results - last 24 hr 04/02/21 11:38: POC Glucose 276 H 04/02/21 15:25: POC Glucose 356 H* 04/02/21 19:40: POC Glucose 289 H 04/03/21 05:12: POC Glucose 192 H 04/03/21 06:50: WBC 6.3, RBC 3.11 L, Hgb 9.3 L, Hct 29.1 L, MCV 93.6, MCH 30.0, MCHC 32.0, RDW 13.6, Plt Count 220 D, MPV 7.6, Neut % (Auto) 55.0, Lymph % (Auto) 35.4, Angelina % (Auto) 6.3, Eos % (Auto) 2.4, Baso % (Auto) 0.8, Neut # (Auto) 3.4, Lymph # (Auto) 2.2, Angelina # (Auto) 0.4, Eos # (Auto) 0.2, Baso # (Auto) 0.1 04/03/21 06:50: Sodium 141, Potassium 4.2, Chloride 107, Carbon Dioxide 27, Anion Gap 11.2, BUN 33 H, Creatinine 1.30 H, Estimated Creat Clear 51, Estimated GFR 39 L, Est GFR ( Amer) 48 L, Glucose 180 H, Calcium 8.4 I & O for Last 24 hours: Intake & Output 03/31/21 04/01/21 04/02/21 04/03/21 11:59 11:59 11:59 11:59 Intake Total 0 / 0 2209 / 2209 2020 1440 / 1440 Output Total 400 / 400 1700 / 1700 3155 / 3155 1999 Balance -400 / -400 509 / 509 -1134 / -1134 -560 / -560 Weight 203 lb 5 oz 205 lb 211 lb 7 oz 208 lb 9 oz - Constitutional no acute distress Comments: Sitting up in the bed eating her breakfast. Appears comfortable. - *Routine Respiratory Exam Present: crackles (Few crackles on the left) - *Routine Cardiovascular Exam Present: RRR - *Routine Abdominal Exam Present: soft, normoactive bowel sounds. Absent: tenderness, distended - *Routine Extremities Exam Absent: edema, calf tenderness - *Routine Neurological Exam Present: alert, oriented X3 Assessment and Plan (1) Cerebellar stroke Status: Acute Category: Medical Code(s): I63.9 - Cerebral infarction, unspecified (2) Altered mental status Status: Acute Qualifiers: Altered mental status type: disorientation Qualified Code(s): R41.0 - Disorientation, unspecified Category: Medical Code(s): R41.82 - Altered mental status, unspecified (3) Hypothyroid Status: Chronic Qualifiers: Hypothyroidism type: unspecified Qualified Code(s): E03.9 - Hypothyroidism, unspecified Category: Medical Code(s): E03.9 - Hypothyroidism, unspecified (4) Renal insufficiency Status: Chronic Category: Medical Code(s): N28.9 - Disorder of kidney and ureter, unspecified (5) CAD (coronary artery disease) Status: Chronic Qualifiers: Coronary Disease-Associated Artery/Lesion type: [place] artery [place] vs. transplanted heart: [place] heart Associated angina: without angina Qualified Code(s): I25.10 - Atherosclerotic heart disease of [place] coronary artery without angina pectoris Category: Medical Code(s): I25.10 - Atherosclerotic heart disease of [place] coronary artery without angina pectoris (6) Diabetes mellitus Status: Chronic Qualifiers: Diabetes mellitus type: type 2 Diabetes mellitus penitentiary insulin use: with moth exterminator use Diabetes mellitus complication status: with other specified complication Qualified Code(s): E11.69 - Type 2 diabetes mellitus with other specified complication; Z79.4 - group home (current) use of insulin Category: Medical Code(s): E11.9 - Type 2 diabetes mellitus without complications (7) Hyperten
--- NOTE | 2021-04-03 10:43 | SW/DCPLANNER ---
MADE CONTACT WITH [facility] THIS AM TO SEE IF THEY CAN ACCEPT THIS PATIENT BACK FOR REHAB SERVICES... DR JOHNSON STATED THIS AM THAT SHE IS MEDICALLY READY FOR A DISPOSITION.. [facility] STATED THEY WILL ACCEPT THIS PATIENT BACK BUT WILL NEED TO CONFIRM WHETHER SHE HAS ANY MCR DAYS TO USE OR IF SHE WILL COME BACK PRIVATE PAY... SCOTT IS GOING TO LET ME KNOW IF SHE CAN COME TODAY SO I CAN LET DR JOHNSNO KNOW... WILL FOLLOW UP WITH FAMILY TODAY ALSO..
[2021-04-03 11:23] LABS: POC Glucose,Bedside 289 (70-110)
--- NOTE | 2021-04-03 13:27 | HMH.DCSUM ---
General - General Admission date:: 03/31/21 <Harry Cotter - 04/03/21 13:51> 03/31/21 <Edie Sparks - 04/03/21 13:48> Discharge date: 04/03/21 <Edie Sparks - 04/03/21 13:48> HPI HPI: 80-year-old female presenting to the emergency department with altered mental status. Patient's family called 911 for her this evening. She has been getting more confused over the last few days. Now having repetitive questioning. She fell earlier today, onto her bottom. Family does not think she struck her head. She now seems confused, does not know who her family members are. Something like this happened 2 months ago. She was diagnosed with nonspecific encephalopathy. Had to go to a prison for a short period of time. Family denies vomiting, fever. She has had decreased appetite. She is awake during the night and sleeping during the day. No new medications. They have not noticed slurred speech. No numbness, weakness, in her arms or legs Patient clinically stable on arrival. Hypertensive. Other vital signs within normal limits. Differential diagnoses are broad including traumatic injury, intracranial bleed. Metabolic derangement. Anemia. Renal insufficiency. Urinary tract infection. Will obtain CBC, CMP, chest x-ray, EKG, troponin profile, noncontrast head CT, urinalysis. Initial laboratory results are reassuring. Creatinine is 1.5, similar to baseline. BUN slightly elevated. No anemia. No electrolyte abnormalities. Noncontrast head CT shows chronic small vessel disease. No bleed. No mass. Spoke with patient's son. He says that her current mental status is very different than what it was a few days ago. Has been a gradual decline, but cannot exclude remote infarct. Symptom duration puts her out of the window for TPA. Clinical exam quite inconsistent with large vessel occlusion. Will obtain CT angiography of the head and neck. Patient will be admitted for further management of altered mental status. (above as per ER doctor as patient is unable to relay the events of the past few days and no family is present) Her head CTA showed chronic atherosclerotic disease without acute flow-limiting stenosis or large vessel occlusion of the central/major intracranial arteries. Radiology recommended a follow-up MRI if symptoms persisted. Her neck CTA showed moderate chronic atherosclerotic disease at the carotid bifurcation resulting in approximately 60 to 70% narrowing on the left and less than 50 on the right. AM after admission the patient opened her eyes and answered yes or no to some questioning, but was still confused and altered in her mental status <Edie Sparks - 04/03/21 13:48> Hospital Course Hospital Course: On admission patient basically open her eyes and did try to answer yes or no questions but fell asleep. Her sensorium did improve daily. She had a PT and OT evaluation at which time she was able to walk a few steps. Dillard catheter was removed and she was getting up to the bedside commode and voiding qs. Patient was noted as per MRI that she had had a cerebellar stroke which accounted for her presenting symptoms. Patient began to sit up in a chair for longer periods of time. She did feel woozy but had no complaints of a headache, visual changes or dysphagia. She began to eat better. Her bowels did move. She was restarted on her Lantus and continued with sliding scale. Patient and family felt she would do well with ongoing rehab. She was accepted at [facility]. On 04/03/2021 patient had continued to do well. Laboratory data on this date showed normal electrolytes with a BUN of 33 and creatinine of 1.3. CBC did show some anemia with a hemoglobin of 9.3 and hematocrit of 29.1. Vital signs were stable. She will continue with PT and OT. Plan is to follow-up on her anemia after her rehab. This is felt to be likely from chronic blood loss and will need outpatient follow-u
== END 2021-04-03 14:55 | DRG 66 ==
LOC: ER 03-31 01:23 → 2ND 03-31 04:00
PROVIDERS: Admitting Provider Family Medicine; Emergency Provider Emergency Medicine; PCP Family Medicine; Visit Provider Family Medicine
DX: I63.9 Cerebral infarction, unspecified (principal); I25.10 Atherosclerotic heart disease of native coronary artery without angina pectoris; E11.9 Type 2 diabetes mellitus without complications; Z79.4 Long term (current) use of insulin; D64.9 Anemia, unspecified; N28.9 Disorder of kidney and ureter, unspecified; E03.9 Hypothyroidism, unspecified; I10 Essential (primary) hypertension
CPT/HCPCS: 36415; 70450; 70496; 70498; 70551; 71045; 80048; 80053; 80061; 81001; 82962; 83605; 83690; 83880; 84484; 85025; 93005; 96375; 97110; 97162; 97165; 97530; 97535; 99284; 99291; J2405; Q9967; U0003

== ENCOUNTER 2021-04-09 16:54 | Inpatient (IN) | payer MEDICARE, OTHER, SELFPAY ==
[2021-04-09] VITALS (9 sets, daily range): BP systolic 140–181; BP diastolic 56–78; PULSE 70–84; RESP 18–20; TEMP 37.1–37.4; O2SAT 97–99; BMI 43.0; BMI 40.0
--- NOTE | 2021-04-09 17:22 | CT_ITS ---
PROCEDURE INFORMATION: Exam: CT Head Without Contrast Exam date and time: 04/09/2021 5:22 PM Age: 80 years old Clinical indication: Weakness, extremity; Right; Additional info: Right sided weakness TECHNIQUE: Imaging protocol: Computed tomography of the head without contrast. Radiation optimization: All CT scans at this facility use at least one of these dose optimization techniques: automated exposure control; mA and/or kV adjustment per patient size (includes targeted exams where dose is matched to clinical indication); or iterative reconstruction. COMPARISON: MR HEAD/BRAIN WO CON 03/31/2021 10:33 AM FINDINGS: Brain: Periventricular and subcortical white matter areas of hypoattenuation, likely chronic small vessel ischemic change, demyelination, or gliosis. No mass, hemorrhage, or acute infarction. Cerebral ventricles: No ventriculomegaly. Paranasal sinuses: Visualized sinuses are unremarkable. No fluid levels. Mastoid air cells: Normal as visualized. Vasculature: Atherosclerotic vascular disease. Bones/joints: Normal. Soft tissues: Unremarkable. IMPRESSION: No acute intracranial abnormality.
--- NOTE | 2021-04-09 17:43 | XR_ITS ---
PROCEDURE INFORMATION: Exam: XR Chest Exam date and time: 04/09/2021 5:43 PM Age: 80 years old Clinical indication: Patient HX: assisted patient with cough. Bedfast patient. TECHNIQUE: Imaging protocol: XR of the chest. Views: 1 view. COMPARISON: CR XR CHEST PORTABLE 03/30/2021 10:23 PM FINDINGS: Lungs: Minimal bibasilar atelectasis. Focal eventration of the right anterior hemidiaphragm. Pleural spaces: Unremarkable. No pleural effusion. No pneumothorax. Heart/Mediastinum: Calcification of the mitral valve annulus. Vasculature: Atherosclerotic disease of the thoracic aorta. Bones/joints: Degenerative changes of the glenohumeral and acromioclavicular joints, manifest by joint space narrowing and osteophyte formation. Old, healed left proximal humerus fracture. IMPRESSION: No acute cardiopulmonary abnormality.
[2021-04-09 17:49] LABS: Chloride 111 mmol/L (98-107); Potassium 5.4 mmoL/L (3.5-5.1); Sodium 143 mmol/L (136-145)
[2021-04-09 18:00] LABS: Alanine Aminotransferase 24 U/L (12-78); Albumin Level 3.9 g/dl (3.5-5.0); Albumin/Globulin Ratio 1.2 (1.1-1.8); Alkaline Phosphatase 133 U/L (38-126); Anion Gap 14.4 mEq/L (5-15); Aspartate Amino Transferase 40 U/L (14-36); Bilirubin,Total 0.5 mg/dl (0.2-1.3); Blood Urea Nitrogen 47 mg/dl (7-17); Calcium 9.7 mg/dl (8.4-10.2); Carbon Dioxide 23 mmol/L (22.0-30.0); Creatinine Clearance Estimated 18 mL/min (50-200); Estimated Glomerular Filt Rate 27 ml/min (>60); GFR (African American) 33 ML/MIN (>60); Globulin 3.2 g/dL (1.3-3.2); Glucose 118 mg/dl (74-100); Total Protein,Serum 7.1 g/dl (6.3-8.2)
[2021-04-09 18:15] LABS: Microscopic, Urine URINE MICROSCOPIC (MICROSCOPIC)
[2021-04-09 18:19] LABS: Appearance,Urine CLEAR (Clear); Bilirubin,Urine Negative (Negative); Blood, Urine TRACE-I (Negative); Color,Urine YELLOW (Yellow); Glucose,Urine (UA) Negative (Negative); Ketones,Urine Negative (Negative); Leukocyte Esterase,Urine 3+ (Negative); Nitrate,Urine Negative (Negative); Protein,Urine Negative (Negative); Urobilinogen,Urine 0.2 EU/dl (0.2)
--- NOTE | 2021-04-09 18:21 | PC.NURSE ---
Pt returned from rad.
[2021-04-09 18:25] LABS: Bacteria,Urine 2+ /lpf; RBC,Urine Occasional #/hpf (0-3)
[2021-04-09 19:26] LABS: Coronavirus 19, PCR Not Detected (NotDetected); Influenza A, PCR Not Detected (NotDetected); Influenza B, PCR Not Detected (NotDetected)
--- NOTE | 2021-04-09 19:39 | HMH.EDGENADL ---
ED Disposition Clinical Impression: Hyperkalemia UTI (urinary tract infection) Qualifiers: Urinary tract infection type: acute cystitis Hematuria presence: without hematuria Qualified Code(s): N30.00 - Acute cystitis without hematuria Disposition: Admitted As Inpatient Condition on Discharge: Fair Referrals: Harry Cotter MD [Primary Care Provider] - - Critical Care Critical Care Time: No Attestation: On 04/09/21, the high probability of a clinically significant, sudden or life threatening deterioration of the following system(s) required my full and direct attention, intervention and personal management. The time I documented below is in addition to time spent performing reported procedures but includes the following listed in this critical care notation. Medical Decision Making - Medical Records Medical records reviewed: Yes: I reviewed the patient's medical records. - Wojciech Inquiry Pt receiving controlled substance: No Vital Signs: 04/09/21 16:54 04/09/21 17:23 04/09/21 17:31 Temperature 99.4 F Temperature Source Oral Pulse Rate 72 70 Pulse Rate [Left Radial] 73 Respiratory Rate 18 Blood Pressure 169/68 H 159/60 H Blood Pressure [Right Arm] 156/74 H Blood Pressure Mean [Right Arm] 101 Blood Pressure Source [Right Arm] Automatic Cuff Blood Pressure Position [Right Arm] Sitting 02 Sat by Pulse Oximetry 98 98 99 Oxygen Delivery Method Room Air - Lab Data Lab results reviewed: Yes: I reviewed the patient's lab results. Lab Results 04/09/21 17:24: Sodium 143, Potassium 5.4 H, Chloride 111 H, Carbon Dioxide 23, Anion Gap 14.4, BUN 47 H, Creatinine 1.80 H, Estimated Creat Clear 18, Estimated GFR 27 L, Est GFR ( Amer) 33 L, Glucose 118 H, Calcium 9.7, Total Bilirubin 0.5, AST 40 H, ALT 24, Alkaline Phosphatase 133 H, Total Protein 7.1, Albumin 3.9, Globulin 3.2, Albumin/Globulin Ratio 1.2 04/09/21 18:10: Urine Color Yellow, Urine Appearance Clear, Urine pH 7.0, Ur Specific Paige 1.020, Urine Protein Negative, Urine Glucose (UA) Negative, Urine Ketones Negative, Urine Blood Trace-i, Urine Nitrate Negative, Urine Bilirubin Negative, Urine Urobilinogen 0.2, Ur Leukocyte Esterase 3+ A, Urine RBC Occasional, Urine WBC 10-20, Ur Squamous Epith Cells 3-5, Urine Bacteria 2+ Result diagrams: 04/09/21 17:24 Orders (Tests/Meds): ED MEDICATIONS Generic Name Dose Route Start Last Admin Trade Name Benita PRN Reason Stop Dose Admin Sodium Chloride 1,000 mls @ 999 mls/hr 04/09/21 17:45 Sod Chlor 0.9% 1000ml Bag IV 04/09/21 18:45 .Q1H1M WILY Ceftriaxone Sodium 1 gm/ 50 mls @ 100 mls/hr 04/09/21 19:15 Sodium Chloride IV 04/23/21 19:14 Q24H WILY Protocol ORDERS Category Date Time Status Complete Blood Count Auto Diff Stat Lab 04/09/21 17:21 Ordered Rapid PCR Covid and Flu A/B Stat Lab 04/09/21 19:19 Received Urine Culture Stat Micro 04/09/21 18:10 Received EKG Request [ECG Request by /Chase] Stat Y 04/09/21 18:50 Ordered - CT Data CT Scan: Head Time Received: 19:[address] Reviewed: Yes: I have reviewed the patient's CT results, I have viewed the radiologist's interpretation Preliminary Findings: Normal/NAD - Physician Consults Physician Consulted: MD Anais Time: 19:10 Reason -: Admission Comment/Response: Agreed to admit Medical Decision Narrative: Upon presentation, patient is hemodynamically stable and nontoxic-appearing. Patient presents with concerns for altered mental status in the setting of recent CVA. Differential diagnosis includes present limited to hemorrhagic conversion of CVA, UTI, pneumonia. Labs including CBC, CMP were obtained along with a UA and a CT head. I reviewed patient's labs and images. Patient's labs demonstrated a normal white blood cell count, demonstrate an elevated creatinine to 1.8. Per chart review, this is elevated from patient's prior creatinine of 1.3. Additionally, patient was foun
--- NOTE | 2021-04-09 21:10 | PC.NURSE ---
Report called to Marcia Saeed
--- NOTE | 2021-04-09 21:46 | PC.NURSE ---
patient up to floor via stretcher.
[2021-04-10] VITALS: BP 155/67; PULSE 78; RESP 20; TEMP 36.9; O2SAT 98
[2021-04-10 03:54] LABS: Basophils # 0.1 K/mm3 (0-0.2); Basophils % 0.9 % (0.1-2.0); Eosinophils # 0.1 K/mm3 (0.0-0.4); Eosinophils % 1.5 % (0.1-12.0); Lymphocytes # 2.3 K/mm3 (0.7-4.5); Lymphocytes % 28.3 % (10-50); Mean Corpuscular HGB Conc 33.3 g/dL (31.8-35.4); Mean Corpuscular Hemoglobin 30.5 pg (27.0-31.2); Mean Corpuscular Volume 91.8 fl (81-99); Mean Platelet Volume 8.6 fl (7.4-10.4); Monocytes # 0.6 K/mm3 (0.1-1.0); Monocytes % 7.4 % (1.7-9.3); Platelet Count 216 K/mm3 (142-424); Red Blood Count 3.27 M/mm3 (4.20-5.40); Red Cell Distribution Width 14.2 % (11.5-17.5)
[2021-04-10 04:00] VITALS: BP 170/80; PULSE 78; RESP 20; TEMP 36.9; O2SAT 98
--- NOTE | 2021-04-10 04:18 | PC.NURSE ---
Pt is alert to self. Has slept at intervals this shift. Complains of discomfort when touched. Pt repeats sentences. VSS. LR infusing @ 50 ml/hr to US guided IV in RAC. Labs and cultures have been difficult to obtain. Multiple attempts made by staff. Awaiting additional blood culture to be drawn. Pt remains on RA. Lungs are CTA. BS active. Purewick is in place. Pt has had 1000 ml urine output thus far. No other concerns at this time. Will continue to monitor.
[2021-04-10 05:01] VITALS: BMI 40.6
[2021-04-10 05:43] LABS: POC Glucose,Bedside 127 (70-110)
[2021-04-10 07:25] VITALS: BP 136/53; PULSE 75; RESP 16; TEMP 36.8; O2SAT 98
--- NOTE | 2021-04-10 07:40 | P.CONPHA_ITS ---
[facility] Pharmacy VTE Monitoring - Patient Demographics Admission date: 04/09/21 Report Date: 04/10/21 Time: 07:40 Allergies/Adverse Reactions: Patient Allergies Iodinated Contrast Media Allergy (Intermediate, Verified 03/24/21 10:44) naproxen [NAPROXEN] Allergy (Mild, Verified 03/24/21 10:44) Height: 1.52 m Weight: 93.922 kg Patient Problems: Current Active Problems UTI (urinary tract infection) (Acute) Hyperkalemia (Acute) - VTE Risk Labs: VTE Related Lab Results Hgb 10.0 g/dL (12.2-16.2) L 04/10/21 03:35 Hct 30.0 % (37.0-47.0) L 04/10/21 03:35 Plt Count 216 K/mm3 (142-424) 04/10/21 03:35 BUN 47 mg/dl (7-17) H 04/09/21 17:24 Creatinine 1.80 mg/dl (0.52-1.04) H 04/09/21 17:24 Estimated Creat Clear 18 mL/min (50-200) 04/09/21 17:24 Was VTE Risk Assessment Performed: Yes VTE Score: 9 VTE Risk Level: Moderate Risk Clinical Trial Participant: No - Prophylaxis VTE Prophylaxis Ordered?: Yes Types of VTE Prophylaxis: TEDS Knee High
--- NOTE | 2021-04-10 08:14 | HMH.HP ---
*Admission Date: 04/09/21 <Lola Grewal 04/10/21 08:17> *Chief complaint: UTI with altered mental status <Lola Grewal 04/10/21 08:17> *History of present illness: Ms. Moctezuma is an 80yo WF with hx of T2DM, HTN, anemia, hypothyroidism, GERD, depression, RLS, dyslipidemia, CAD with stent who was recently discharged to [facility] after admission for cerebellar CVA diagnosed by MRI. She was brought to the [facility] ER yesterday evening for evaluation of new onset right-sided weakness and slurred speech at the halfway which had resolved by the time of her arrival to the ED. She was also reported to have fallen out of her wheelchair at the [place]. In the ED, CXR and CT head showed no acute abnormalities. Her H&H was 10.0/30.0. Her potassium was elevated at 5.4 with decreased renal function BUN 47, Cr 1.80, and GFR 27. Urinalysis showed UTI with 3+ leuks and trace blood. She was given a liter fluid bolus along with IV Rocephin dose and admitted for further management. This morning, she is rather drowsy and without complaint while resting in bed. She will follow simple commands and open her eyes when instructed, but otherwise keeps her eyes closed and responds with one-word answers. She is oriented to person and place hospital . Preliminary urine culture is growing gram negative rods. Blood cultures are pending at this time. <Lola Grewal 04/10/21 08:40> [facility] History Medical History: Reports:: Atherosclerotic Heart Disease, Cancer, Congestive Heart Failure, Coronary Artery Disease, Deep Vein Thrombosis, Depression, Diabetes Mellitus Type 2, Gastroesophageal Reflux Disease(GERD), Hyperlipidemia, Hypertension Denies:: Diabetes Mellitus Type 1, Internal Pacemaker, MRSA, Seizures <Lola Grewal 04/10/21 08:40> *Have you ever received a pneumonia vaccine?: Yes <Lola Grewal 04/10/21 08:17> *Have you received a flu vaccine this season?: Yes <Lola Grewal 04/10/21 08:17> Other Medical History: Reports: Anemia, Arthritis, Hypothyroidism, Thyroid Disease <Lola Grewal 04/10/21 08:17> Laterality Cases: Bilateral: Cataract <Lola Grewal 04/10/21 08:40> Other Surgeries: Yes: Appendectomy, Cardiac Catheterization, Cholecystectomy, Colonoscopy, Coronary Stent, Hernia Repair, Hysterectomy-Total, Skin Cancer Excision, Other. No: Pacemaker <Lola Grewal 04/10/21 08:17> Amputation: No <Lola Grewal 04/10/21 08:17> Fractures: Yes <Lola Grewal 04/10/21 08:17> - *Social History Smoking Status: Never smoker <Lola Grewal 04/10/21 08:17> Alcohol Intake: never <Lola Grewal 04/10/21 08:17> Alcohol Intake Frequency:: other <Lola Grewal 04/10/21 08:17> Substance Use Type: denies use <Lola Grewal 04/10/21 08:17> *Occupational Status:: retired <Lola Grewal 04/10/21 08:17> Housing: halfway <Lola Grewal 04/10/21 08:17> Household Members: spouse <Lola Grewal 04/10/21 08:17> *Travel in the last 8 weeks: None <Lola Grewal 04/10/21 08:17> Family Hx:: Heart Attack <Lola Grewal 04/10/21 08:40> Review of Systems - Review of Systems Review of systems:: unable to obtain <Lola Grewal 04/10/21 08:40> obtained from ED report <Lola Grewal 04/10/21 08:40> - *Neurologic Reports abnormal speech, Reports confusion, Reports weakness, Denies tingling/numbness/burning sensations <Lola Grewal 04/10/21 08:40> Meds Home Medications Medication Instructions Recorded Confirmed Type aspirin 81 mg tablet,delayed 81 mg PO DAILY 02/10/18 04/09/21 History release cyanocobalamin (vitamin B-12) 1,000 mcg PO DAILY 02/10/18 04/09/21 History 1,000 mcg tablet pravastatin 80 mg tablet 80 mg PO HS 02/10/18 04/09/21 History ascorbate calcium (vitamin C) 500 500 mg PO DAILY 12/05/20 04/09/21 History mg tablet ferrous sulfate 325 mg (65 mg 325 mg PO DAILY 12/05/20 04/09/21 History iron) tablet Insulin Glargine,Hum.rec.anlog 25 units SQ DAILY 02/04/21 04/09/21 History [Lantus Solostar 100 Units/mL 3mL flexpen] ondanse
[2021-04-10 08:16] LABS: Basophils # 0.1 K/mm3 (0-0.2); Basophils % 0.7 % (0.1-2.0); Eosinophils # 0.1 K/mm3 (0.0-0.4); Eosinophils % 1.4 % (0.1-12.0); Hematocrit 32.4 % (37.0-47.0); Hemoglobin 10.8 g/dL (12.2-16.2); Lymphocytes # 2.2 K/mm3 (0.7-4.5); Lymphocytes % 27.3 % (10-50); Mean Corpuscular HGB Conc 33.4 g/dL (31.8-35.4); Mean Corpuscular Hemoglobin 30.9 pg (27.0-31.2); Mean Corpuscular Volume 92.7 fl (81-99); Mean Platelet Volume 8.1 fl (7.4-10.4); Monocytes # 0.6 K/mm3 (0.1-1.0); Monocytes % 7.9 % (1.7-9.3); Neutrophils % 62.6 % (37.0-80.0); Platelet Count 278 K/mm3 (142-424); Red Blood Count 3.49 M/mm3 (4.20-5.40); Red Cell Distribution Width 14.2 % (11.5-17.5)
[2021-04-10 08:42] LABS: Blood Urea Nitrogen 44 mg/dl (7-17); Calcium 9.2 mg/dl (8.4-10.2); Carbon Dioxide 23 mmol/L (22.0-30.0); Chloride 112 mmol/L (98-107); Creatinine Clearance Estimated 18 mL/min (50-200); Estimated Glomerular Filt Rate 29 ml/min (>60); GFR (African American) 35 ML/MIN (>60); Glucose 119 mg/dl (74-100); Sodium 142 mmol/L (136-145)
[2021-04-10 11:58] VITALS: BMI 40.6
[2021-04-10 15:28] VITALS: BP 173/69; PULSE 80; RESP 17; TEMP 36.7; O2SAT 98
--- NOTE | 2021-04-10 17:35 | PC.NURSE ---
Pt has been oriented to person only this shift. Pt has consistently repeated sentences this shift. Pt has had mild weakness in her rt arm this shift. Slurred speech noted at times, but not consistent. Pt is able to raise both legs and wiggle toes w/o difficulty. +2 pitting edema noted to bilateral feet. Purwick remains in place, pt is urinating cloudy, light yellow urine. Pt appeared tearful at one point this shift stating I'm scared, I don't know what's wrong with me pt was easily reassured and is currently resting in bed w/ eyes closed at this time. No other acute changes or complaints at this time. Will continue to monitor.
[2021-04-10 18:58] LABS: POC Glucose,Bedside 146 (70-110)
--- NOTE | 2021-04-10 20:28 | PC.NURSE ---
Snack passed and trash pulled
[2021-04-10 20:36] LABS: POC Glucose,Bedside 164 (70-110)
[2021-04-10 21:01] VITALS: BP 182/79; PULSE 77; RESP 18; TEMP 36.6; O2SAT 100
--- NOTE | 2021-04-11 03:18 | PC.NURSE ---
At beginning of shift patient was only alert to self and seemed restless. Towards end of the shift patient patient became more alert knew her name, where she was, and who the president was. Patient rested comfortably throughout shift. Good urine output per purewick. Patient was turned Q2 hours. No further concerns voiced to RN. No signs of discomfort noted towards RN.
[2021-04-11 04:00] VITALS: BP 161/69; PULSE 69; RESP 18; TEMP 36.5; O2SAT 99
[2021-04-11 06:03] LABS: POC Glucose,Bedside 133 (70-110)
[2021-04-11 07:18] VITALS: BP 126/75; PULSE 67; RESP 17; TEMP 36.6; O2SAT 96
--- NOTE | 2021-04-11 07:55 | HMH.ACPN2 ---
<Lola Grewal - Last Filed: 04/11/21 07:55> Internal Medicine - PN: Subj *Date: 04/11/21 *Time: 07:55 Interval history: Pt is markedly improved from yesterday. She is up in the chair listening to music. She ate breakfast independently per nursing notes. She has no complaint. She denies pain or weakness. She is alert and oriented to person, place, and situation. She states the year is [id number] but I'm not sure that is right . She is conversive and asks about the cause of her UTI and whether she has had another stroke. Exam Vital signs and Labs for Last 24 Hours: Temp Pulse Resp BP Pulse Ox 97.9 F 67 17 126/75 96 04/11/21 07:18 04/11/21 07:18 04/11/21 07:18 04/11/21 07:18 04/11/21 07:18 Laboratory Results - last 24 hr 04/10/21 07:25: WBC 8.0, RBC 3.49 L, Hgb 10.8 L, Hct 32.4 L, MCV 92.7, MCH 30.9, MCHC 33.4, RDW 14.2, Plt Count 278 D, MPV 8.1, Neut % (Auto) 62.6, Lymph % (Auto) 27.3, [place] % (Auto) 7.9, Eos % (Auto) 1.4, Baso % (Auto) 0.7, Neut # (Auto) 5.0, Lymph # (Auto) 2.2, [place] # (Auto) 0.6, Eos # (Auto) 0.1, Baso # (Auto) 0.1 04/10/21 07:25: Sodium 142, Potassium 5.0, Chloride 112 H, Carbon Dioxide 23, Anion Gap 12.0, BUN 44 H, Creatinine 1.70 H, Estimated Creat Clear 18, Estimated GFR 29 L, Est GFR ( Amer) 35 L, Glucose 119 H, Calcium 9.2 04/10/21 17:09: POC Glucose 146 H 04/10/21 20:03: POC Glucose 164 H 04/11/21 05:55: POC Glucose 133 H I & O for Last 24 hours: Intake & Output 04/08/21 04/09/21 04/10/21 04/11/21 11:59 11:59 11:59 11:59 Intake Total 358 / 358 2340 / 2340 Output Total 1000 / 1000 1150 / 1150 Balance -642 / -642 1190 / 1190 Weight 207 lb 3.752 oz Microbiology Reports for the Last 24 Hours: Microbiology 04/09/21 18:10 Urine,Catheterized Urine Culture - Preliminary Gram Negative Rods - Constitutional no acute distress - *Routine HEENT Exam Head: Present: normocephalic, atraumatic ENT: Present: mucous membranes moist - *Routine Respiratory Exam Present: CTA bilaterally. Absent: rales, wheezes - *Routine Cardiovascular Exam Present: RRR - *Routine Abdominal Exam Present: soft, normoactive bowel sounds. Absent: tenderness, distended, guarding, firm, rigid - *Routine Extremities Exam Present: pulses intact. Absent: calf tenderness Comments: 2+ BLE edema - *Routine Neurological Exam Present: alert, moving all extremities, normal speech oriented to person, place, and situation Assessment and Plan (1) UTI (urinary tract infection) Status: Acute Qualifiers: Urinary tract infection type: acute cystitis Hematuria presence: without hematuria Qualified Code(s): N30.00 - Acute cystitis without hematuria Category: Medical Code(s): N39.0 - Urinary tract infection, site not specified (2) Hyperkalemia Status: Acute Category: Medical Code(s): E87.5 - Hyperkalemia (3) Altered mental status Status: Acute Qualifiers: Altered mental status type: disorientation Qualified Code(s): R41.0 - Disorientation, unspecified Category: Medical Code(s): R41.82 - Altered mental status, unspecified (4) Anemia Status: Chronic Qualifiers: Anemia type: unspecified type Qualified Code(s): D64.9 - Anemia, unspecified Category: Medical Code(s): D64.9 - Anemia, unspecified (5) Renal insufficiency Status: Chronic Category: Medical Code(s): N28.9 - Disorder of kidney and ureter, unspecified - Assessment and plan all Dx Assessment and Plan for all problems:: Pt is clinically improved. Potassium has normalized. Hemoglobin and Hematocrit have improved. Renal function is slowly improving. Final urine culture and blood cultures pending. Will continue current care. Further per Dr. Manzo. <Rodriguez Manzo - Last Filed: 04/11/21 08:48> Internal Medicine - PN: Subj *Date: 04/11/21 *Time: 08:46 Exam Vital signs and Labs for Last 24 Hours: Temp Puls
[2021-04-11 08:00] VITALS: O2SAT 96
--- NOTE | 2021-04-11 09:43 | SW/DCPLANNER ---
Addendum entered by Kimber Browning 04/14/21 09:59: I have updated Shikha with [facility] regarding this patient. Patient could potentially discharge back this afternoon. Addendum entered by Kimber Browning 04/13/21 09:53: Shikha with [facility] has stated that no further COVID testing is needed if patient discharges tomorrow. Addendum entered by Kimber Browning 04/13/21 08:00: I have updated Shikha with [facility] that the plan for this patient is to discharge back tomorrow. I will fax updated patient information today. I will confirm today if patient will need another COVID swab prior to discharge back to [facility]. Original Note: This patient currently resides at [facility]. I spoke with Shikha from [facility] whom did confirm that patient is currently SN[facility] level of care. I will continue to follow up with Shikha until patient is medically stable for discharge.
[2021-04-11 11:32] LABS: POC Glucose,Bedside 197 (70-110)
[2021-04-11 15:08] VITALS: BP 110/44; PULSE 67; RESP 17; TEMP 36.9; O2SAT 100
[2021-04-11 18:48] LABS: POC Glucose,Bedside 174 (70-110)
[2021-04-11 19:23] VITALS: BP 141/63; PULSE 73; RESP 18; TEMP 36.7; O2SAT 100
[2021-04-11 20:31] LABS: POC Glucose,Bedside 201 (70-110)
[2021-04-12 03:25] VITALS: BP 123/57; PULSE 62; RESP 16; TEMP 36.7; O2SAT 98
--- NOTE | 2021-04-12 03:43 | PC.NURSE ---
Patient was alert & oriented at the beginning of the shift. At around midnight she became alert to self only. Patient had complaints of nausea this shift. MD harry was paged for dianne. Patient has since had no other complaints. Patient vital signs are stable. Will continue to monitor. Call light within reach.
[2021-04-12 05:00] VITALS: BMI 39.6
[2021-04-12 05:47] LABS: POC Glucose,Bedside 209 (70-110)
[2021-04-12 07:24] VITALS: BP 114/50; PULSE 67; RESP 20; TEMP 36.9; O2SAT 98
--- NOTE | 2021-04-12 08:21 | HMH.ACPN2 ---
<Meg Lopez - Last Filed: 04/12/21 08:21> Internal Medicine - PN: Subj *Date: 04/12/21 *Time: 08:21 Interval history: Patient states she had a rough night. She states she coughed so much she vomited twice. She did tolerate breakfast this morning with no nausea or vomiting. She denies any pain. Exam Vital signs and Labs for Last 24 Hours: Temp Pulse Resp BP Pulse Ox 98.4 F 67 20 114/50 L 98 04/12/21 07:24 04/12/21 07:24 04/12/21 07:24 04/12/21 07:24 04/12/21 07:24 Laboratory Results - last 24 hr 04/11/21 11:25: POC Glucose 197 H 04/11/21 18:41: POC Glucose 174 H 04/11/21 20:14: POC Glucose 201 H 04/12/21 05:40: POC Glucose 209 H I & O for Last 24 hours: Intake & Output 04/09/21 04/10/21 04/11/21 04/12/21 11:59 11:59 11:59 11:59 Intake Total 358 / 358 2340 / 2340 650 / 650 Output Total 1000 / 1000 1400 / 1400 500 / 500 Balance -642 / -642 940 / 940 150 / 150 Weight 207 lb 3.752 oz 202 lb 5 oz Microbiology Reports for the Last 24 Hours: Microbiology 04/10/21 03:35 Blood Blood Culture - Preliminary NO GROWTH AFTER 48 HOURS 04/09/21 18:10 Urine,Catheterized Urine Culture - Final Escherichia coli - Constitutional no acute distress - *Routine Respiratory Exam Present: CTA bilaterally - *Routine Cardiovascular Exam Present: RRR - *Routine Abdominal Exam Present: soft, normoactive bowel sounds. Absent: tenderness - *Routine Extremities Exam Absent: cyanosis, clubbing, edema - *Routine Skin Exam Present: warm. Absent: rash - *Routine Neurological Exam Present: alert, oriented X3 Assessment and Plan (1) E. coli UTI Status: Acute Category: Medical Code(s): N39.0 - Urinary tract infection, site not specified; B96.20 - Unspecified Escherichia coli [E. coli] as the cause of diseases classified elsewhere (2) Hyperkalemia Status: Acute Category: Medical Code(s): E87.5 - Hyperkalemia (3) Altered mental status Status: Acute Qualifiers: Altered mental status type: disorientation Qualified Code(s): R41.0 - Disorientation, unspecified Category: Medical Code(s): R41.82 - Altered mental status, unspecified (4) Anemia Status: Chronic Qualifiers: Anemia type: unspecified type Qualified Code(s): D64.9 - Anemia, unspecified Category: Medical Code(s): D64.9 - Anemia, unspecified (5) Renal insufficiency Status: Chronic Category: Medical Code(s): N28.9 - Disorder of kidney and ureter, unspecified (6) History of CVA (cerebrovascular accident) Status: Acute Category: Medical Code(s): Z86.73 - Personal history of transient ischemic attack (TIA), and cerebral infarction without residual deficits (7) CAD (coronary artery disease) Status: Chronic Qualifiers: Coronary Disease-Associated Artery/Lesion type: [place] artery [place] vs. transplanted heart: [place] heart Associated angina: without angina Qualified Code(s): I25.10 - Atherosclerotic heart disease of [place] coronary artery without angina pectoris Category: Medical Code(s): I25.10 - Atherosclerotic heart disease of [place] coronary artery without angina pectoris (8) Diabetes mellitus Status: Chronic Qualifiers: Diabetes mellitus type: type 2 Diabetes mellitus assisted insulin use: with assisted use Diabetes mellitus complication status: with other specified complication Qualified Code(s): E11.69 - Type 2 diabetes mellitus with other specified complication; Z79.4 - ferry terminal agent (current) use of insulin Category: Medical Code(s): E11.9 - Type 2 diabetes mellitus without complications (9) Hypertension Status: Chronic Qualifiers: Hypertension type: essential hypertension Qualified Code(s): I10 - Essential (primary) hypertension Category: Medical Code(s): I10 - Essential (primary) hypertension (10) Hypothyroid Status: Chronic Qualifiers:
[2021-04-12 10:03] LABS: Basophils # 0.1 K/mm3 (0-0.2); Basophils % 0.8 % (0.1-2.0); Eosinophils # 0.2 K/mm3 (0.0-0.4); Eosinophils % 2.6 % (0.1-12.0); Hemoglobin 9.4 g/dL (12.2-16.2); Lymphocytes # 2.3 K/mm3 (0.7-4.5); Lymphocytes % 39.4 % (10-50); Mean Corpuscular HGB Conc 33.8 g/dL (31.8-35.4); Mean Corpuscular Hemoglobin 30.9 pg (27.0-31.2); Mean Corpuscular Volume 91.6 fl (81-99); Mean Platelet Volume 8.3 fl (7.4-10.4); Monocytes # 0.4 K/mm3 (0.1-1.0); Monocytes % 6.2 % (1.7-9.3); Platelet Count 278 K/mm3 (142-424); Red Blood Count 3.03 M/mm3 (4.20-5.40); White Blood Count 5.8 K/mm3 (4.8-10.8)
[2021-04-12 10:04] LABS: Hematocrit 27.8 % (37.0-47.0)
[2021-04-12 10:38] LABS: Alanine Aminotransferase 18 U/L (12-78); Albumin/Globulin Ratio 1.1 (1.1-1.8); Alkaline Phosphatase 92 U/L (38-126); Anion Gap 12.5 mEq/L (5-15); Aspartate Amino Transferase 29 U/L (14-36); Bilirubin,Total 0.4 mg/dl (0.2-1.3); Blood Urea Nitrogen 32 mg/dl (7-17); Calcium 8.9 mg/dl (8.4-10.2); Carbon Dioxide 21 mmol/L (22.0-30.0); Chloride 111 mmol/L (98-107); Creatinine Clearance Estimated 43 mL/min (50-200); Estimated Glomerular Filt Rate 33 ml/min (>60); GFR (African American) 40 ML/MIN (>60); Globulin 2.7 g/dL (1.3-3.2); Glucose 198 mg/dl (74-100); Potassium 4.5 mmoL/L (3.5-5.1); Sodium 140 mmol/L (136-145); Total Protein,Serum 5.7 g/dl (6.3-8.2)
[2021-04-12 11:19] LABS: POC Glucose,Bedside 204 (70-110)
--- NOTE | 2021-04-12 12:53 | DIET.NUTRFU ---
Addendum entered by Kendra Whitaker 04/13/21 14:03: No changes or new concerns. Pt states she is feeling much better than yesterday. [place] diet selections and increased fluid/electrolyte replacement intake encouraged. Original Note: Pt with no nutritional concerns at this time. PO intakes 75%, BG moderate- avg. 190.
--- NOTE | 2021-04-12 14:21 | PC.NURSE ---
Called and spoke with Dr. Shay office in re to pt needing to have a bm and request for miralax, awaiting cb at this time. Pt refused prune juice.Spoke with Yaz.
[2021-04-12 15:38] LABS: POC Glucose,Bedside 245 (70-110)
[2021-04-12 16:00] VITALS: BP 101/47; PULSE 74; RESP 16; TEMP 36.5; O2SAT 100
--- NOTE | 2021-04-12 18:46 | PC.NURSE ---
Received order for miralax 17 gm po q day from Dr. Manzo.
--- NOTE | 2021-04-12 19:31 | PC.NURSE ---
No acute changes this shift. No further nausea/vomiting this shift.
[2021-04-12 20:00] VITALS: BP 106/40; PULSE 77; RESP 18; TEMP 36.8; O2SAT 100
[2021-04-12 21:06] LABS: POC Glucose,Bedside 217 (70-110)
--- NOTE | 2021-04-13 03:32 | PC.NURSE ---
RN did not administer 9pm dose of carvedilol due to patients B/P 106/40.
[2021-04-13 04:00] VITALS: BP 130/59; PULSE 76; RESP 15; TEMP 37; O2SAT 97
--- NOTE | 2021-04-13 04:27 | PC.NURSE ---
Patient has rested with eyes closed most of this shift. No s/s of acute distress noted at this time. Call light within reach, bed at lowest level for safety; will continue to monitor.
[2021-04-13 05:00] VITALS: BMI 40.3
[2021-04-13 05:56] LABS: Chloride 113 mmol/L (98-107); Potassium 4.6 mmoL/L (3.5-5.1); Sodium 142 mmol/L (136-145)
[2021-04-13 05:57] LABS: Basophils % 0.6 % (0.1-2.0); Eosinophils # 0.1 K/mm3 (0.0-0.4); Hematocrit 26.7 % (37.0-47.0); Hemoglobin 8.9 g/dL (12.2-16.2); Lymphocytes # 2.4 K/mm3 (0.7-4.5); Lymphocytes % 37.5 % (10-50); Mean Corpuscular HGB Conc 33.3 g/dL (31.8-35.4); Mean Corpuscular Hemoglobin 31.1 pg (27.0-31.2); Mean Corpuscular Volume 93.4 fl (81-99); Mean Platelet Volume 8.2 fl (7.4-10.4); Monocytes # 0.5 K/mm3 (0.1-1.0); Monocytes % 7.5 % (1.7-9.3); Neutrophils # 3.4 K/mm3 (1.8-7.8); Neutrophils % 52.4 % (37.0-80.0); Platelet Count 271 K/mm3 (142-424); Red Blood Count 2.86 M/mm3 (4.20-5.40); Red Cell Distribution Width 14.1 % (11.5-17.5); White Blood Count 6.4 K/mm3 (4.8-10.8)
[2021-04-13 05:59] LABS: Anion Gap 11.6 mEq/L (5-15); Blood Urea Nitrogen 40 mg/dl (7-17); Calcium 8.4 mg/dl (8.4-10.2); Carbon Dioxide 22 mmol/L (22.0-30.0); Creatinine Clearance Estimated 12 mL/min (50-200); Estimated Glomerular Filt Rate 18 ml/min (>60); GFR (African American) 21 ML/MIN (>60); Glucose 150 mg/dl (74-100)
[2021-04-13 06:04] LABS: POC Glucose,Bedside 169 (70-110)
[2021-04-13 07:29] VITALS: BP 90/50; PULSE 71; RESP 19; TEMP 36.5; O2SAT 97
--- NOTE | 2021-04-13 08:37 | HMH.ACPN2 ---
<Lola Grewal - Last Filed: 04/13/21 08:37> Internal Medicine - PN: Subj *Date: 04/13/21 *Time: 08:37 Interval history: She is sitting up in the chair and reports feeling better than yesterday . She denies pain or nausea. She tolerated breakfast well. She reports small BM this morning. Exam Vital signs and Labs for Last 24 Hours: Temp Pulse Resp BP Pulse Ox 97.7 F 71 19 90/50 L 97 04/13/21 07:29 04/13/21 07:29 04/13/21 07:29 04/13/21 07:29 04/13/21 07:29 Laboratory Results - last 24 hr 04/12/21 10:00: WBC 5.8 D, RBC 3.03 L, Hgb 9.4 L, Hct 27.8 L, MCV 91.6, MCH 30.9, MCHC 33.8, RDW 14.0, Plt Count 278, MPV 8.3, Neut % (Auto) 51.0, Lymph % (Auto) 39.4, [place] % (Auto) 6.2, Eos % (Auto) 2.6, Baso % (Auto) 0.8, Neut # (Auto) 3.0, Lymph # (Auto) 2.3, [place] # (Auto) 0.4, Eos # (Auto) 0.2, Baso # (Auto) 0.1 04/12/21 10:00: Sodium 140, Potassium 4.5, Chloride 111 H, Carbon Dioxide 21 L, Anion Gap 12.5, BUN 32 H D, Creatinine 1.50 H, Estimated Creat Clear 43, Estimated GFR 33 L, Est GFR ( Amer) 40 L, Glucose 198 H, Calcium 8.9, Total Bilirubin 0.4, AST 29 D, ALT 18, Alkaline Phosphatase 92, Total Protein 5.7 L, Albumin 3.0 L, Globulin 2.7, Albumin/Globulin Ratio 1.1 04/12/21 11:05: POC Glucose 204 H 04/12/21 15:30: POC Glucose 245 H 04/12/21 20:58: POC Glucose 217 H 04/13/21 05:23: WBC 6.4, RBC 2.86 L, Hgb 8.9 L, Hct 26.7 L, MCV 93.4, MCH 31.1, MCHC 33.3, RDW 14.1, Plt Count 271, MPV 8.2, Neut % (Auto) 52.4, Lymph % (Auto) 37.5, [place] % (Auto) 7.5, Eos % (Auto) 2.0, Baso % (Auto) 0.6, Neut # (Auto) 3.4, Lymph # (Auto) 2.4, [place] # (Auto) 0.5, Eos # (Auto) 0.1, Baso # (Auto) 0.0 04/13/21 05:23: Sodium 142, Potassium 4.6, Chloride 113 H, Carbon Dioxide 22, Anion Gap 11.6, BUN 40 H, Creatinine 2.60 H D, Estimated Creat Clear 12, Estimated GFR 18 L*, Est GFR ( Amer) 21 L D, Glucose 150 H D, Calcium 8.4 04/13/21 05:40: POC Glucose 169 H I & O for Last 24 hours: Intake & Output 04/10/21 04/11/21 04/12/21 04/13/21 11:59 11:59 11:59 11:59 Intake Total 358 / 358 2340 / 2340 650 / 650 1010 / 1010 Output Total 1000 / 1000 1400 / 1400 500 / 500 Balance -642 / -642 940 / 940 150 / 150 1010 / 1010 Weight 207 lb 3.752 oz 202 lb 5 oz 205 lb 4 oz Microbiology Reports for the Last 24 Hours: Microbiology 04/10/21 09:45 Blood Blood Culture - Preliminary - Constitutional no acute distress - *Routine HEENT Exam Head: Present: normocephalic, atraumatic ENT: Present: mucous membranes moist - *Routine Respiratory Exam Absent: respiratory distress Comments: good air movement with right basilar wheeze - *Routine Cardiovascular Exam Present: RRR - *Routine Abdominal Exam Present: soft, normoactive bowel sounds. Absent: tenderness, distended, guarding, firm, rigid - *Routine Extremities Exam Present: pulses intact. Absent: calf tenderness Comments: 1+ BLE edema improving - *Routine Neurological Exam Present: alert, oriented X3, moving all extremities, normal speech Assessment and Plan (1) E. coli UTI Status: Acute Category: Medical Code(s): N39.0 - Urinary tract infection, site not specified; B96.20 - Unspecified Escherichia coli [E. coli] as the cause of diseases classified elsewhere (2) Hyperkalemia Status: Acute Category: Medical Code(s): E87.5 - Hyperkalemia (3) Altered mental status Status: Acute Qualifiers: Altered mental status type: disorientation Qualified Code(s): R41.0 - Disorientation, unspecified Category: Medical Code(s): R41.82 - Altered mental status, unspecified (4) Anemia Status: Chronic Qualifiers: Anemia type: unspecified type Qualified Code(s): D64.9 - Anemia, unspecified Category: Medical Code(s): D64.9 - Anemia, unspecified (5) Renal insufficiency Status: Chronic Category: Medical Code(s): N28.9 - Disorder of kidney and ureter, unspecified (6) History of CVA (cerebrovascular accident) Status: Acute Cat
[2021-04-13 11:33] LABS: POC Glucose,Bedside 222 (70-110)
--- NOTE | 2021-04-13 12:05 | HMH.ACPN ---
Internal Medicine - PN: Subj *Date: 04/13/21 *Time: 12:05 Exam Vital signs and Labs for Last 24 Hours: Temp Pulse Resp BP Pulse Ox 97.7 F 71 19 90/50 L 97 04/13/21 07:29 04/13/21 07:29 04/13/21 07:29 04/13/21 07:29 04/13/21 07:29 Laboratory Results - last 24 hr 04/12/21 15:30: POC Glucose 245 H 04/12/21 20:58: POC Glucose 217 H 04/13/21 05:23: WBC 6.4, RBC 2.86 L, Hgb 8.9 L, Hct 26.7 L, MCV 93.4, MCH 31.1, MCHC 33.3, RDW 14.1, Plt Count 271, MPV 8.2, Neut % (Auto) 52.4, Lymph % (Auto) 37.5, [place] % (Auto) 7.5, Eos % (Auto) 2.0, Baso % (Auto) 0.6, Neut # (Auto) 3.4, Lymph # (Auto) 2.4, [place] # (Auto) 0.5, Eos # (Auto) 0.1, Baso # (Auto) 0.0 04/13/21 05:23: Sodium 142, Potassium 4.6, Chloride 113 H, Carbon Dioxide 22, Anion Gap 11.6, BUN 40 H, Creatinine 2.60 H D, Estimated Creat Clear 12, Estimated GFR 18 L*, Est GFR ( Amer) 21 L D, Glucose 150 H D, Calcium 8.4 04/13/21 05:40: POC Glucose 169 H 04/13/21 11:19: POC Glucose 222 H I & O for Last 24 hours: Intake & Output 04/10/21 04/11/21 04/12/21 04/13/21 23:59 23:59 23:59 23:59 Intake Total 838 / 838 2220 / 2220 820 / 940 480 / 480 Output Total 1400 / 1900 1500 / 1500 Balance -562 / -1062 720 / 720 820 / 940 480 / 480 Weight 94 kg 91.767 kg 93.1 kg Microbiology Reports for the Last 24 Hours: Microbiology 04/10/21 09:45 Blood Blood Culture - Preliminary Assessment and Plan (1) E. coli UTI Status: Acute Category: Medical Code(s): N39.0 - Urinary tract infection, site not specified; B96.20 - Unspecified Escherichia coli [E. coli] as the cause of diseases classified elsewhere (2) Hyperkalemia Status: Acute Category: Medical Code(s): E87.5 - Hyperkalemia (3) Altered mental status Status: Acute Qualifiers: Altered mental status type: disorientation Qualified Code(s): R41.0 - Disorientation, unspecified Category: Medical Code(s): R41.82 - Altered mental status, unspecified (4) Anemia Status: Chronic Qualifiers: Anemia type: unspecified type Qualified Code(s): D64.9 - Anemia, unspecified Category: Medical Code(s): D64.9 - Anemia, unspecified (5) Renal insufficiency Status: Chronic Category: Medical Code(s): N28.9 - Disorder of kidney and ureter, unspecified (6) History of CVA (cerebrovascular accident) Status: Acute Category: Medical Code(s): Z86.73 - Personal history of transient ischemic attack (TIA), and cerebral infarction without residual deficits (7) CAD (coronary artery disease) Status: Chronic Qualifiers: Coronary Disease-Associated Artery/Lesion type: [place] artery [place] vs. 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 Diabetes mellitus complication status: with other specified complication Qualified Code(s): E11.69 - Type 2 diabetes mellitus with other specified complication; Z79.4 - assisted (current) use of insulin Category: Medical Code(s): E11.9 - Type 2 diabetes mellitus without complications (9) Hypertension Status: Chronic Qualifiers: Hypertension type: essential hypertension Qualified Code(s): I10 - Essential (primary) hypertension Category: Medical Code(s): I10 - Essential (primary) hypertension (10) Hypothyroid Status: Chronic Qualifiers: Hypothyroidism type: unspecified Qualified Code(s): E03.9 - Hypothyroidism, unspecified Category: Medical Code(s): E03.9 - Hypothyroidism, unspecified (11) Vomiting Status: Acute Category: Medical Code(s): R11.10 - Vomiting, unspecified The patient'
[2021-04-13 15:13] VITALS: BP 112/68; PULSE 72; RESP 19; TEMP 36.7; O2SAT 96
[2021-04-13 16:08] LABS: POC Glucose,Bedside 282 (70-110)
[2021-04-13 18:00] VITALS: BP 115/47; PULSE 69; RESP 16; TEMP 36.8; O2SAT 98
--- NOTE | 2021-04-13 18:25 | PC.NURSE ---
Pt alert and oriented this shift and able to make needs known. RR even and unlabored. Continues on IVF's and IV ABT. No acute changes. No c/o of pain. PRN cough med give per nov. VSS. CB in reach reach, pt up to chair.
--- NOTE | 2021-04-13 20:24 | PC.NURSE ---
trash pulled and snack offered at this time
[2021-04-13 20:52] LABS: POC Glucose,Bedside 288 (70-110)
[2021-04-14] VITALS (11 sets, daily range): BP systolic 95–129; BP diastolic 36–78; PULSE 67–78; RESP 18; TEMP 36.6–36.9; O2SAT 95–99; BMI 42.6
[2021-04-14 05:21] LABS: POC Glucose,Bedside 202 (70-110)
[2021-04-14 06:01] LABS: Hematocrit 24.3 % (37.0-47.0); Hemoglobin 8.1 g/dL (12.2-16.2)
[2021-04-14 06:17] LABS: Chloride 115 mmol/L (98-107)
[2021-04-14 06:18] LABS: Potassium 4.8 mmoL/L (3.5-5.1); Sodium 142 mmol/L (136-145)
[2021-04-14 06:20] LABS: Blood Urea Nitrogen 41 mg/dl (7-17); Creatinine Clearance Estimated 17 mL/min (50-200); Estimated Glomerular Filt Rate 27 ml/min (>60); GFR (African American) 33 ML/MIN (>60)
[2021-04-14 06:21] LABS: Anion Gap 10.8 mEq/L (5-15); Calcium 7.9 mg/dl (8.4-10.2); Carbon Dioxide 21 mmol/L (22.0-30.0); Glucose 162 mg/dl (74-100)
--- NOTE | 2021-04-14 08:10 | HMH.ACPN2 ---
<Meg Lopez - Last Filed: 04/14/21 08:10> Internal Medicine - PN: Subj *Date: 04/14/21 *Time: 08:10 Interval history: Patient states she has been up all night coughing and every time she coughs, she leaks urine, so they have had to change her bed numerous times. She is getting ready to get a bath this morning and have her bed changed again. She denies any pain. Exam Vital signs and Labs for Last 24 Hours: Temp Pulse Resp BP Pulse Ox 98.4 F 67 18 118/63 95 04/14/21 07:20 04/14/21 07:20 04/14/21 07:20 04/14/21 07:20 04/14/21 07:20 Laboratory Results - last 24 hr 04/13/21 11:19: POC Glucose 222 H 04/13/21 15:56: POC Glucose 282 H 04/13/21 20:44: POC Glucose 288 H 04/14/21 05:11: POC Glucose 202 H 04/14/21 05:17: Hgb 8.1 L, Hct 24.3 L 04/14/21 05:17: Sodium 142, Potassium 4.8, Chloride 115 H, Carbon Dioxide 21 L, Anion Gap 10.8, BUN 41 H, Creatinine 1.80 H D, Estimated Creat Clear 17, Estimated GFR 27 L, Est GFR ( Amer) 33 L D, Glucose 162 H, Calcium 7.9 L I & O for Last 24 hours: Intake & Output 04/11/21 04/12/21 04/13/21 04/14/21 11:59 11:59 11:59 11:59 Intake Total 2340 / 2340 650 / 650 1010 / 1010 1271 / 1271 Output Total 1400 / 1400 500 / 500 Balance 940 / 940 150 / 150 1010 / 1010 1271 / 1271 Weight 202 lb 5 oz 205 lb 4 oz 217 lb Microbiology Reports for the Last 24 Hours: Microbiology 04/10/21 09:45 Blood Blood Culture - Preliminary - Constitutional no acute distress - *Routine Respiratory Exam Present: CTA bilaterally - *Routine Cardiovascular Exam Present: RRR - *Routine Abdominal Exam Present: soft, normoactive bowel sounds. Absent: tenderness - *Routine Extremities Exam Absent: cyanosis, clubbing, edema - *Routine Skin Exam Present: warm. Absent: rash - *Routine Neurological Exam Present: alert, oriented X3 Assessment and Plan (1) E. coli UTI Status: Acute Category: Medical Code(s): N39.0 - Urinary tract infection, site not specified; B96.20 - Unspecified Escherichia coli [E. coli] as the cause of diseases classified elsewhere (2) Hyperkalemia Status: Acute Category: Medical Code(s): E87.5 - Hyperkalemia (3) Altered mental status Status: Acute Qualifiers: Altered mental status type: disorientation Qualified Code(s): R41.0 - Disorientation, unspecified Category: Medical Code(s): R41.82 - Altered mental status, unspecified (4) Anemia Status: Chronic Qualifiers: Anemia type: unspecified type Qualified Code(s): D64.9 - Anemia, unspecified Category: Medical Code(s): D64.9 - Anemia, unspecified (5) Renal insufficiency Status: Chronic Category: Medical Code(s): N28.9 - Disorder of kidney and ureter, unspecified (6) History of CVA (cerebrovascular accident) Status: Acute Category: Medical Code(s): Z86.73 - Personal history of transient ischemic attack (TIA), and cerebral infarction without residual deficits (7) CAD (coronary artery disease) Status: Chronic Qualifiers: Coronary Disease-Associated Artery/Lesion type: [place] artery [place] vs. transplanted heart: [place] heart Associated angina: without angina Qualified Code(s): I25.10 - Atherosclerotic heart disease of [place] coronary artery without angina pectoris Category: Medical Code(s): I25.10 - Atherosclerotic heart disease of [place] coronary artery without angina pectoris (8) Diabetes mellitus Status: Chronic Qualifiers: Diabetes mellitus type: type 2 Diabetes mellitus halfway insulin use: with superintendent container terminal use Diabetes mellitus complication status: with other specified complication Qualified Code(s): E11.69 - Type 2 diabetes mellitus with other specified complication Category: Medical Code(s): E11.9 - Type 2 diabetes mellitus without complications (9) Hypertension Status: Chronic Qualifiers: Hypertension type: essential hypertension Qualified Code(s): I10 - Essential (prima
--- NOTE | 2021-04-14 08:31 | XR_ITS ---
PROCEDURE: XR CHEST PORTABLE CLINICAL HISTORY: persistent cough COMPARISON: CR XR CHEST 2V from 02/07/[address] ANGIO CHEST from 02/08/2021 CR XR CHEST PORTABLE from 03/30/2021 CR XR CHEST PORTABLE from 04/09/2021 FINDINGS: There is cardiomegaly without failure. There are mild atelectatic changes in the left lower lobe. The remaining lungs are clear. There may be some mild bronchiectasis in the right lung base medially. No lobar consolidation or collapse. There are degenerative changes of the shoulders with old bilateral humeral neck fractures. IMPRESSION: Mild left basilar atelectasis. Possible right basilar bronchiectasis Dictated by: Chris Jha MD 04/14/2021 09:23 Chris Jha MD in [place] 04/14/2021 09:23
--- NOTE | 2021-04-14 09:28 | PC.NURSE ---
This RN gave report to Jude Smith RN. New IV started in L Hand 20 G.
--- NOTE | 2021-04-14 11:17 | PC.NURSE ---
PT AND FAMILY HAVE REQUESTED TO HAVE ANY PERTINENT SCOPES DURING HOSPITALIZATION RATHER THAN AN OUTPATIENT.
[2021-04-14 12:29] LABS: POC Glucose,Bedside 284 (70-110)
--- NOTE | 2021-04-14 13:15 | HMH.DCSUM ---
General - General Admission date:: 04/13/21 <Harry Cotter - 04/14/21 15:38> 04/13/21 <Meg Lopez - 04/14/21 13:20> Discharge date: 04/14/21 <JessicaMeg - 04/14/21 13:20> HPI HPI: Ms. Moctezuma is an 80yo WF with hx of T2DM, HTN, anemia, hypothyroidism, GERD, depression, RLS, dyslipidemia, CAD with stent who was recently discharged to [facility] after admission for cerebellar CVA diagnosed by MRI. She was brought to the [facility] ER yesterday evening for evaluation of new onset right-sided weakness and slurred speech at the skilled nursing which had resolved by the time of her arrival to the ED. She was also reported to have fallen out of her wheelchair at the [place]. In the ED, CXR and CT head showed no acute abnormalities. Her H&H was 10.0/30.0. Her potassium was elevated at 5.4 with decreased renal function BUN 47, Cr 1.80, and GFR 27. Urinalysis showed UTI with 3+ leuks and trace blood. She was given a liter fluid bolus along with IV Rocephin dose and admitted for further management. This morning, she is rather drowsy and without complaint while resting in bed. She will follow simple commands and open her eyes when instructed, but otherwise keeps her eyes closed and responds with one-word answers. She is oriented to person and place hospital . Preliminary urine culture is growing gram negative rods. Blood cultures are pending at this time. <Meg Lopez - 04/14/21 13:20> Hospital Course Hospital Course: The patient was empirically started on antibiotics and her urine culture began growing gram-negative rods. Her potassium was low and was replaced. She began feeling better. Her potassium, and hemoglobin and hematocrit had improved. Her renal function improved as well. Her urine culture returned showing E. coli, which was sensitive to Rocephin. She was continued on IV antibiotics. She did begin having some nausea and vomiting and also a cough. By 04/13/2021, her nausea and vomiting had stopped but she continued with a cough. She also had some elevation in her BUN and creatinine for no obvious reason, as she was eating and drinking well. She had not been on her diuretics. She was restarted on some IV fluids. A chest x-ray was also ordered which showed some atelectasis but no pneumonia. By 04/14/2021, she continued with a cough, but her renal function had improved with hydration. Her H&H was low and she received 1 unit of packed red blood cells. It was felt she was stable to be discharged back to [facility]. She will need a repeat CBC and CMP in 1 week. She will also need a repeat U/A and culture once finished with outpatient antibiotics for her UTI. Her diuretics dose will be decreased. <Meg Lopez - 04/14/21 13:49> Objective Vital signs: Temp Pulse Resp BP Pulse Ox 98.5 F 67 18 129/47 L 99 04/14/21 15:23 04/14/21 15:23 04/14/21 15:23 04/14/21 15:23 04/14/21 15:23 <CyndeeHarry esparza - 04/14/21 15:38> Temp Pulse Resp BP Pulse Ox 98.4 F 74 18 120/36 L 99 04/14/21 10:40 04/14/21 10:40 04/14/21 10:40 04/14/21 10:40 04/14/21 10:40 <Meg Lopez - 04/14/21 13:20> Narrative: - Constitutional no acute distress - *Routine Respiratory Exam Present: CTA bilaterally - *Routine Cardiovascular Exam Present: RRR - *Routine Abdominal Exam Present: soft, normoactive bowel sounds. Absent: tenderness - *Routine Extremities Exam Absent: cyanosis, clubbing, edema - *Routine Skin Exam Present: warm. Absent: rash - *Routine Neurological Exam Present: alert, oriented X3 <Meg Lopez - 04/14/21 13:20> Results Labs on day of discharge: Labs from last 24 hours 04/14/21 04/14/21 04/14/21 14:40 12:06 09:08 Hgb 9.0 L D Hct 27.5 L Sodium Potassium Chloride Carbon Dioxide Anion Gap BUN Creatinine Estimated Creat Clear Estimated GFR Est GFR ( Amer) Gluc
[2021-04-14 14:56] LABS: Hematocrit 27.5 % (37.0-47.0)
== END 2021-04-14 17:45 | DRG 690 ==
LOC: ER 19:53 → 2ND 20:35
PROVIDERS: Emergency Medicine; Admitting Provider Family Medicine; Emergency Provider Emergency Medicine; PCP Family Medicine; Visit Provider Family Medicine
DX: N39.0 Urinary tract infection, site not specified (principal); I13.0 Hypertensive heart and chronic kidney disease with heart failure and stage 1 through stage 4 chronic kidney disease, or unspecified chronic kidney disease; E87.5 Hyperkalemia; W05.0XXA Fall from non-moving wheelchair, initial encounter; Y92.129 Unspecified place in nursing home as the place of occurrence of the external cause; I50.9 Heart failure, unspecified; I25.10 Atherosclerotic heart disease of native coronary artery without angina pectoris; Z86.718 Personal history of other venous thrombosis and embolism; Z79.4 Long term (current) use of insulin; E11.22 Type 2 diabetes mellitus with diabetic chronic kidney disease; N18.9 Chronic kidney disease, unspecified; E03.9 Hypothyroidism, unspecified; B96.20 Unspecified Escherichia coli [E. coli] as the cause of diseases classified elsewhere; R11.10 Vomiting, unspecified; R47.81 Slurred speech; Z85.828 Personal history of other malignant neoplasm of skin; D63.1 Anemia in chronic kidney disease; E78.5 Hyperlipidemia, unspecified; K21.9 Gastro-esophageal reflux disease without esophagitis
CPT/HCPCS: 36415; 70450; 71045; 80048; 80053; 81001; 82962; 85014; 85018; 85025; 86850; 87040; 87086; 87088; 87186; 93005; 96365; 99284; 99291; J2405; P9016; U0003

== ENCOUNTER 2021-04-24 20:38 | Observation (INO) | payer MEDICARE, OTHER, SELFPAY ==
[2021-04-24 20:41] VITALS: BP 152/63; PULSE 83; RESP 18; TEMP 36.9; O2SAT 99; BMI 31.0
--- NOTE | 2021-04-24 20:58 | XR_ITS ---
PROCEDURE INFORMATION: Exam: XR Chest Exam date and time: 04/24/2021 8:58 PM Age: 80 years old Clinical indication: Shortness of breath; Patient HX: Short of air; Additional info: SOA TECHNIQUE: Imaging protocol: XR of the chest. Views: 4 or more views. Total images: 1 COMPARISON: CR XR CHEST PORTABLE 04/14/2021 8:55 AM FINDINGS: Lungs: Low lung volumes. Mild central vascular congestion. No gross pulmonary infiltrates or edema pattern. Mild peribronchial thickening and perihilar stranding suggesting possible bronchitis. Pleural spaces: No pleural effusion. No pneumothorax. Heart/Mediastinum: Heart size within normal limits for portable AP technique. No tracheal/mediastinal shift. Vasculature: Mild aortic ectasia/tortuosity and mild calcific atherosclerosis. Bones/joints: No acute osseous abnormalities are identified. Osteopenia. Chronic proximal humeral fractures again noted bilaterally. IMPRESSION: 1. Findings suspicious for bronchitis. No gross pulmonary infiltrates or edema pattern. 2. Mild central vascular congestion. 3. Additional non-emergent findings detailed above.
--- NOTE | 2021-04-24 20:58 | CT_ITS ---
PROCEDURE INFORMATION: Exam: CT Head Without Contrast Exam date and time: 04/24/2021 8:58 PM Age: 80 years old Clinical indication: Altered mental status/memory loss; Confusion or disorientation; Patient HX: AMS HX of CVA; Additional info: HX of CVA TECHNIQUE: Imaging protocol: Computed tomography of the head without contrast. 3D rendering (Not supervised by radiologist): MIP and/or 3D reconstructed images were created by the technologist. Total images: 481 Radiation optimization: All CT scans at this facility use at least one of these dose optimization techniques: automated exposure control; mA and/or kV adjustment per patient size (includes targeted exams where dose is matched to clinical indication); or iterative reconstruction. COMPARISON: CT HEAD/BRAIN WO CON 04/09/2021 6:11 PM FINDINGS: Brain: Mild generalized atrophy with Mild periventricular chronic microvascular changes consistent with the patient's advanced age. No extra-axial fluid collections. No evidence of acute intracranial hemorrhage. Garcia-white differentiation is well maintained. No CT evidence of large territory acute or subacute intracranial ischemia/infarct. No intracranial mass lesions. No midline shift or herniation. Cerebral ventricles: Ventricles normal. Paranasal sinuses: Mucosal thickening in the left maxillary sinus suggesting mild chronic sinus inflammatory disease. No fluid levels. The other paranasal sinuses are clear. Mastoid air cells: Visualized mastoid air cells are clear. Orbital cavity: Visualized orbital contents demonstrate no evidence of acute abnormality. Vasculature: Moderate calcific atherosclerosis. No asymmetric vascular hyperdensities suggestive of thrombosis are identified. Bones/joints: The calvarium and visualized facial bones are intact. Soft tissues: The scalp and visualized soft tissues demonstrate no acute abnormality. Other findings: The IACs are grossly normal. The sella is grossly normal. IMPRESSION: 1. No acute intracranial process. No intracranial hemorrhage or mass effect. No interval change since 04/09/2021. 2. Atrophy and chronic microvascular changes consistent with the patient's advanced age. 3. Moderate calcific atherosclerosis.
[2021-04-24 21:05] LABS: Microscopic, Urine URINE MICROSCOPIC (MICROSCOPIC)
[2021-04-24 21:11] LABS: Appearance,Urine CLEAR (Clear); Bilirubin,Urine Negative (Negative); Blood, Urine TRACE-I (Negative); Color,Urine YELLOW (Yellow); Glucose,Urine (UA) Negative (Negative); Ketones,Urine Negative (Negative); Leukocyte Esterase,Urine Negative (Negative); Nitrate,Urine Negative (Negative); Protein,Urine Negative (Negative); Urobilinogen,Urine 0.2 EU/dl (0.2)
[2021-04-24 21:12] LABS: WBC,Urine Occasional #/hpf (0-3)
[2021-04-24 21:13] LABS: Bacteria,Urine Trace /lpf
--- NOTE | 2021-04-24 21:27 | ECG_ITS ---
APPROVED REPORT Exam: Resting ECG HR:85 bpm ECG Measurements Heart Rate 85 AXES MT 190 P 80 QRSd 90 QRS -39 QT 390 T 35 QTc 464 Conclusion Sinus rhythm with premature supraventricular complexes Left axis deviation Incomplete RBBB Abnormal ECG Electronically signed by : John Rosado, 04/25/2021 17:00:41
--- NOTE | 2021-04-24 21:40 | HMH.EDGENADL ---
ED Disposition Clinical Impression: Diverticulitis, Elevated serum free T4 level Cholelithiasis Qualifiers: Cholelithiasis location: gallbladder Cholecystitis presence: without cholecystitis Biliary obstruction: without biliary obstruction Qualified Code(s): K80.20 - Calculus of gallbladder without cholecystitis without obstruction Diabetes mellitus Qualifiers: Diabetes mellitus type: type 1 Diabetes mellitus complication status: with other specified complication Qualified Code(s): E10.69 - Type 1 diabetes mellitus with other specified complication Anemia Qualifiers: Anemia type: unspecified type Qualified Code(s): D64.9 - Anemia, unspecified Disposition: Admitted as Observation Condition on Discharge: Fair - Critical Care Critical Care Time: No Attestation: On 04/24/21, the high probability of a clinically significant, sudden or life threatening deterioration of the following system(s) required my full and direct attention, intervention and personal management. The time I documented below is in addition to time spent performing reported procedures but includes the following listed in this critical care notation. Medical Decision Making - Medical Records Medical records reviewed: Yes: I reviewed the patient's medical records. - Wojciech Inquiry Pt receiving controlled substance: No Vital Signs: 04/24/21 20:41 04/25/21 00:11 Temperature 98.5 F 98.6 F Temperature Source Oral Pulse Rate 82 Pulse Rate [Right] 83 Respiratory Rate 18 16 Blood Pressure 152/66 H Blood Pressure [Right Arm] 152/63 H Blood Pressure Mean [Right Arm] 92 Blood Pressure Source Automatic Cuff Blood Pressure Source [Right Arm] Automatic Cuff Blood Pressure Position Supine Blood Pressure Position [Right Arm] Supine 02 Sat by Pulse Oximetry 99 96 Oxygen Delivery Method Room Air - Lab Data Lab results reviewed: Yes: I reviewed the patient's lab results. Lab Results 04/24/21 20:10: Urine Color Yellow, Urine Appearance Clear, Urine pH 7.0, Ur Specific [place] 1.010, Urine Protein Negative, Urine Glucose (UA) Negative, Urine Ketones Negative, Urine Blood Trace-i, Urine Nitrate Negative, Urine Bilirubin Negative, Urine Urobilinogen 0.2, Ur Leukocyte Esterase Negative, Urine RBC 3-5, Urine WBC Occasional, Ur Squamous Epith Cells 3-5, Urine Bacteria Trace 04/24/21 21:31: TSH 3.06, Thyroxine (T4) 19.4 H 04/24/21 21:35: WBC 5.5, RBC 3.04 L, Hgb 9.1 L, Hct 28.4 L, MCV 93.3, MCH 29.7, MCHC 31.9, RDW 13.4, Plt Count 318, MPV 7.4, Neut % (Auto) 53.6, Lymph % (Auto) 34.5, [place] % (Auto) 7.0, Eos % (Auto) 4.2, Baso % (Auto) 0.7, Neut # (Auto) 2.9, Lymph # (Auto) 1.9, [place] # (Auto) 0.4, Eos # (Auto) 0.2, Baso # (Auto) 0.0, ESR 97 H 04/24/21 21:35: Sodium 145, Potassium 4.6, Chloride 113 H, Carbon Dioxide 28, Anion Gap 8.6, BUN 28 H, Creatinine 0.90, Estimated Creat Clear 66, Estimated GFR 60, Est GFR ( Amer) 73, Glucose 147 H, Calcium 9.1, Total Bilirubin 0.4, AST 31, ALT 16, Alkaline Phosphatase 119, Troponin I 0.01, C-Reactive Protein 1.6, NT-Pro-B Natriuret Pep 699 H, Total Protein 6.2 L, Albumin 3.2 L, Globulin 3.0, Albumin/Globulin Ratio 1.1, Procalcitonin 0.058 04/24/21 22:20: Lipase 128 04/25/21 00:24: Troponin I 0.02 Result diagrams: 04/24/21 21:35 04/24/21 21:35 Orders (Tests/Meds): ED MEDICATIONS Generic Name Dose Route Start Last Admin Trade Name Benita PRN Reason Stop Dose Admin Sodium Chloride 1,000 mls @ 999 mls/hr 04/24/21 21:00 04/24/21 21:50 Sod Chlor 0.9% 1000ml Bag IV 04/24/21 22:00 999 mls/hr .Q1H1M WILY Administration Levofloxacin/Dextrose 500 mg in 100 mls @ 100 mls/hr 04/25/21 01:30 04/25/21 01:29 Levaquin 500mg/100ml Premix IV 05/09/21 01:29 100 mls/hr Q24H WILY Administration Protocol Metronidazole 500 mg in 100 mls @ 100 mls/hr 04/25/21 01:30 04/25/21 01:27 Flagyl 500mg/100ml Ivpb IV 05/09/21 01:29 100 mls/hr Q8H WILY Administration Protocol Sodium Chloride 8 ml 0
[2021-04-24 21:44] LABS: Basophils % 0.7 % (0.1-2.0); Eosinophils # 0.2 K/mm3 (0.0-0.4); Eosinophils % 4.2 % (0.1-12.0); Hematocrit 28.4 % (37.0-47.0); Hemoglobin 9.1 g/dL (12.2-16.2); Lymphocytes # 1.9 K/mm3 (0.7-4.5); Lymphocytes % 34.5 % (10-50); Mean Corpuscular HGB Conc 31.9 g/dL (31.8-35.4); Mean Corpuscular Hemoglobin 29.7 pg (27.0-31.2); Mean Corpuscular Volume 93.3 fl (81-99); Mean Platelet Volume 7.4 fl (7.4-10.4); Monocytes # 0.4 K/mm3 (0.1-1.0); Neutrophils # 2.9 K/mm3 (1.8-7.8); Neutrophils % 53.6 % (37.0-80.0); Platelet Count 318 K/mm3 (142-424); Red Blood Count 3.04 M/mm3 (4.20-5.40); Red Cell Distribution Width 13.4 % (11.5-17.5); White Blood Count 5.5 K/mm3 (4.8-10.8)
[2021-04-24 22:45] LABS: Alanine Aminotransferase 16 U/L (12-78); Albumin Level 3.2 g/dl (3.5-5.0); Albumin/Globulin Ratio 1.1 (1.1-1.8); Alkaline Phosphatase 119 U/L (38-126); Anion Gap 8.6 mEq/L (5-15); Aspartate Amino Transferase 31 U/L (14-36); Bilirubin,Total 0.4 mg/dl (0.2-1.3); Blood Urea Nitrogen 28 mg/dl (7-17); Calcium 9.1 mg/dl (8.4-10.2); Carbon Dioxide 28 mmol/L (22.0-30.0); Chloride 113 mmol/L (98-107); Creatinine Clearance Estimated 66 mL/min (50-200); Estimated Glomerular Filt Rate 60 ml/min (>60); GFR (African American) 73 ML/MIN (>60); Glucose 147 mg/dl (74-100); Potassium 4.6 mmoL/L (3.5-5.1); Sodium 145 mmol/L (136-145); Total Protein,Serum 6.2 g/dl (6.3-8.2)
[2021-04-24 22:50] LABS: C-Reactive Protein 1.6 mg/L (0-4)
[2021-04-24 23:00] LABS: NT Pro Brain Natriuretic Pep. 699 pg/mL (0-450)
[2021-04-24 23:04] LABS: Procalcitonin 0.058 ng/mL (0.0-2.0)
[2021-04-24 23:10] LABS: Erythrocyte Sedimentation Rate 97 mm/hr (0-30)
[2021-04-24 23:15] LABS: Troponin I 0.01 ng/ml (0.00-0.034)
--- NOTE | 2021-04-24 23:35 | CT_ITS ---
PROCEDURE INFORMATION: Exam: CT Abdomen And Pelvis Without Contrast Exam date and time: 04/24/2021 11:35 PM Age: 80 years old Clinical indication: Patient HX: Vomiting, AMS, unable to give history; Additional info: Vomitting TECHNIQUE: Imaging protocol: Computed tomography of the abdomen and pelvis without contrast. Total images: 358 Radiation optimization: All CT scans at this facility use at least one of these dose optimization techniques: automated exposure control; mA and/or kV adjustment per patient size (includes targeted exams where dose is matched to clinical indication); or iterative reconstruction. COMPARISON: CT ABDOMEN WO CON 11/04/2019 9:45 AM FINDINGS: Lungs: Patchy scarring or atelectasis in the lung bases. Mediastinal space: Small hiatal hernia. The stomach is largely contracted without gross abnormality. Liver: Normal contour. 9 mm rounded low-density lesion in the left hepatic lobe measuring 25 Hounsfield units, which is new since 11/04/2019. This is an indeterminate lesion. Nonemergent multiphasic pre and postcontrast MRI of the liver recommended for further characterization. No intrahepatic biliary ductal dilatation. Gallbladder and bile ducts: Calcified gallstones in the gallbladder lumen measuring up to 10 mm in size. The gallbladder is partially contracted without gross evidence of cholecystitis. Nondilated bile ducts. Pancreas: Question minimal stranding around the pancreatic neck although motion artifact may be contributing to this appearance. Correlate clinically for evidence of mild pancreatitis. No pancreatic ductal dilatation or fluid collections. Spleen: Normal. No splenomegaly. Adrenal glands: Normal. No adrenal mass. Kidneys and ureters: Mild bilateral symmetrical perinephric stranding, nonspecific. This is unchanged and may relate to chronic perirenal scarring. No hydronephrosis or hydroureter. 2 mm nonobstructive left renal stone. Stomach and bowel: There are 2 duodenal diverticula arising from the 3rd and 4th portions of the duodenum measuring 3.9 cm and 5.4 cm respectively. Nondilated small bowel without acute abnormality. Moderate-severe diverticulosis in the descending colon and proximal sigmoid colon. Mild fatty stranding around the proximal sigmoid colon with short segment mild wall thickening suspicious for mild diverticulitis. No evidence of perforation or abscess. Appendix: The appendix is not identified. No secondary signs of appendicitis. Intraperitoneal space: Unchanged chronic mildly increased density of the mesentery. Leading considerations include mesenteric panniculitis, edema related to systemic causes, and reactive edema secondary to subtle infectious or inflammatory bowel pathology. Lack of adenopathy would make lymphoma less likely. Vasculature: Mild cardiomegaly.Moderate coronary artery calcification. 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 Severe atherosclerotic aortoiliac calcification without aneurysm. Lymph nodes: See Intraperitoneal space finding. Urinary bladder: Unremarkable as visualized. Reproductive: Prior hysterectomy. Bones/joints: No acute osseous abnormalities. Osteopenia. Moderate-severe central canal stenosis L4-L5. 8 mm bone island in the right posterosuperior iliac spine. Soft tissues: Mild soft tissue stranding/edema in the peripheral subcutaneous tissues suggesting volume overload or anasarca.Very small fatty umbilical hernia . No evidence of associated bowel herniation or strangulation. IMPRESSION: 1. There is moderate-severe distal colonic diverticulosis with
[2021-04-24 23:49] LABS: Lipase 128 U/L (23-300)
[2021-04-24 23:54] LABS: T4 (Thyroxine) 19.4 ug/dl (5.53-11.0)
[2021-04-25 00:08] LABS: Thyroid Stimulating Hormone 3.06 uIU/mL (0.465-4.68)
[2021-04-25 00:11] VITALS: BP 152/66; PULSE 82; RESP 16; TEMP 37; O2SAT 96
--- NOTE | 2021-04-25 00:12 | PC.NURSE ---
[address]
[2021-04-25 00:57] LABS: Troponin I 0.02 ng/ml (0.00-0.034)
[2021-04-25 02:49] VITALS: BP 164/78; PULSE 80; RESP 18; TEMP 37; O2SAT 97
[2021-04-25 03:08] LABS: Troponin I 0.03 ng/ml (0.00-0.034)
[2021-04-25 03:25] VITALS: BP 161/67; PULSE 73; RESP 18; TEMP 36.8; O2SAT 93; BMI 32.2
--- NOTE | 2021-04-25 03:39 | PC.WOUNDNOTE ---
STAGE 2 SORE NOTED. DRESSING APPLIED, TURNED Q2H.
--- NOTE | 2021-04-25 04:08 | PC.NURSE ---
A&OX2. PT CONFUSED ABOUT WHERE SHE IS, AND THE TIME. PT TOLERATING RA WELL. STAGE 2 SORE PRESENT TO BOTTOM. DRESSING APPLIED, CDI. TURNED Q2H. +3 PITTING EDEMA NOTED TO BLE. PT RECEIVED AND TOLERATED BED BATH. IN BRIEF FOR INCONTINENCE. KEPT CLEAN AND DRY. PT HAS HAD NO C/O PAIN/NA/VO SINCE ARRIVAL TO UNIT. SLEEPING COMFORTABLY IN BED. VSS WILL CONTINUE TO MONITOR.
--- NOTE | 2021-04-25 07:32 | PC.NURSE ---
MULTIPLE ATTEMPTS TO DRAW MORNING LABS. UNSUCCESSFUL. CALLED LAB TO SEE IF THEY COULD COME TRY.
[2021-04-25 08:00] VITALS: BP 151/68; PULSE 82; RESP 14; TEMP 36.8; O2SAT 100
--- NOTE | 2021-04-25 08:00 | US_ITS ---
PROCEDURE: US GALLBLADDER CLINICAL INDICATION: abd pain COMPARISON: CT CT ABDOMEN PELVIS WO CON from 04/24/2021 FINDINGS: Pancreas: Unremarkable/Not well seen Liver: Unremarkable. There is appropriate direction of blood flow within a non dilated portal vein. Right kidney: Mild ectasia of the right renal pelvis. Gallbladder: Gallstones present. No gallbladder wall thickening, pericholecystic fluid, or biliary dilatation. Common bile duct is normal at 2 mm. IMPRESSION: Cholelithiasis Dictated by: Chris Jha MD 04/25/2021 12:30 Chris Jha MD in [facility] 04/25/2021 12:30
--- NOTE | 2021-04-25 08:33 | HMH.HP ---
*Admission Date: 04/24/21 <Edie Sparks - 04/25/21 09:09> *Chief complaint: Altered mental status; intractable nausea and vomiting <Edie Sparks - 04/25/21 09:09> *History of present illness: Ms Dewayne Moctezuma is an 80-year-old female With a history of type 2 diabetes mellitus, hypertension, anemia, hypothyroidism, GERD, depression, restless leg syndrome, dyslipidemia, coronary artery disease with a stent, Recent cerebellar CVA diagnosed by MRI, and recent hospitalization with a UTI who presented to [facility] With altered mental status. With evaluation in the emergency room she was felt to have diverticulitis along with Intractable vomiting. She was given a liter of IV fluids and started on Levaquin and Flagyl. She was given famotidine, Reglan, Zofran, and Compazine. She was then admitted for further evaluation and treatment. Patient is a poor historian today. Information is obtained from the ER record and from the son who is present at this time. .Apparently she did well 2 days ago and was talking and very alert. Yesterday she began showing confusion and was not feeling well. The son says that after initial ER evaluation they were ready to send her back to [facility] at which time she began to vomit. She was then admitted. CT of the abdomen/pelvis revealed the following: IMPRESSION: 1. There is moderate-severe distal colonic diverticulosis with findings suspicious for mild diverticulitis in the proximal sigmoid colon. No evidence of perforation or abscess. 2. Small hiatal hernia. No evidence of esophageal rupture. 3. There is a 9 mm low-density indeterminate lesion in the left hepatic lobe which is new since 11/04/2019. Nonemergent MRI of the liver recommended for further characterization. 4. Gallstones without CT evidence of cholecystitis or biliary obstruction. 5. Mild generalized anasarca. 6. There is mild stranding near the pancreatic neck which may relate to systemic edema. Correlate clinically to exclude evidence of mild pancreatitis. 7. 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 8. Additional non-emergent findings detailed above. Head CT results as follows: IMPRESSION: 1. No acute intracranial process. No intracranial hemorrhage or mass effect. No interval change since 04/09/2021. 2. Atrophy and chronic microvascular changes consistent with the patient's advanced age. 3. Moderate calcific atherosclerosis. Admission laboratory data with CBC show a white blood cell count of 5500 with a hemoglobin of 9.1 hematocrit of 28.4. Blood chemistries show a potassium of 4.6 and sodium of 145. BUN is 28 and creatinine is 0.9. BNP is 699. TSH is 3.06 with a T4 of 19.4. Troponin I's have been normal x3. Lipase is 128. Liver function studies are normal. To note patient has had 2 recent admissions with discharge on 04/14/2021 back to [facility] after treatment for a urinary tract infection with altered mental status. On 04/03/2021 she was discharged back to [facility] after suffering a cerebellar stroke. This a.m. patient responds appropriately. Son is at bedside and assists with history. Patient denies chest pain and shortness of breath and nausea. <Edie Sparks - 04/25/21 09:09> [facility] History Medical History: Reports:: Atherosclerotic Heart Disease, Cancer, Congestive Heart Failure, Coronary Artery Disease, Cerebrovascular Accident, Deep Vein Thrombosis, Depression, Diabetes Mellitus Type 2, Gastroesophageal Reflux Disease(GERD), Hyperlipidemia, Hypertension, Urinary Tract Infection Denies:: Diabetes Mellitus Type 1, Internal Pacemaker, MRSA, Seizures <Edie Sparks 04/25/21 09:09> *Have you ever received a pneumonia vaccine?: Yes <Edie Sparks 04/25/21 09:09> *Have you received a flu vaccine this seas
[2021-04-25 09:01] LABS: Basophils % 0.8 % (0.1-2.0); Eosinophils # 0.1 K/mm3 (0.0-0.4); Eosinophils % 2.8 % (0.1-12.0); Hematocrit 24.9 % (37.0-47.0); Lymphocytes # 1.6 K/mm3 (0.7-4.5); Lymphocytes % 35.5 % (10-50); Mean Corpuscular HGB Conc 31.4 g/dL (31.8-35.4); Mean Corpuscular Hemoglobin 29.8 pg (27.0-31.2); Mean Corpuscular Volume 94.8 fl (81-99); Mean Platelet Volume 7.6 fl (7.4-10.4); Monocytes # 0.3 K/mm3 (0.1-1.0); Neutrophils # 2.4 K/mm3 (1.8-7.8); Neutrophils % 53.9 % (37.0-80.0); Platelet Count 272 K/mm3 (142-424); Red Blood Count 2.63 M/mm3 (4.20-5.40); Red Cell Distribution Width 13.4 % (11.5-17.5); White Blood Count 4.5 K/mm3 (4.8-10.8)
[2021-04-25 09:06] LABS: Anion Gap 6.6 mEq/L (5-15); Blood Urea Nitrogen 26 mg/dl (7-17); Calcium 8.5 mg/dl (8.4-10.2); Carbon Dioxide 26 mmol/L (22.0-30.0); Chloride 116 mmol/L (98-107); Creatinine Clearance Estimated 69 mL/min (50-200); Estimated Glomerular Filt Rate 60 ml/min (>60); GFR (African American) 73 ML/MIN (>60); Glucose 136 mg/dl (74-100); Magnesium 1.6 mg/dl (1.6-2.3); Potassium 4.6 mmoL/L (3.5-5.1); Sodium 144 mmol/L (136-145)
[2021-04-25 09:08] LABS: Hemoglobin 7.8 g/dL (12.2-16.2)
--- NOTE | 2021-04-25 09:29 | PC.NURSE ---
notified at 906 of critical hgb on colt bass. repeated and verified pt name, and v# and lab result [address] Manzo's office of critical hemaglobin of 7.8 at this time.
--- NOTE | 2021-04-25 09:53 | P.CONPHA_ITS ---
[facility] Pharmacy VTE Monitoring - Patient Demographics Admission date: 04/25/21 Report Date: 04/25/21 Time: 09:53 Allergies/Adverse Reactions: Patient Allergies Iodinated Contrast Media Allergy (Intermediate, Verified 03/24/21 10:44) naproxen [NAPROXEN] Allergy (Mild, Verified 03/24/21 10:44) Height: 1.75 m Weight: 98.685 kg Patient Problems: Current Active Problems Hypothyroid (Chronic) Anemia (Chronic) Altered mental status (Acute) History of CVA (cerebrovascular accident) (Chronic) Vomiting (Acute) Diverticulitis (Acute) Cholelithiasis (Acute) Elevated serum free T4 level (Acute) CAD (coronary artery disease) (Chronic) Diabetes mellitus (Chronic) - VTE Risk Labs: VTE Related Lab Results Hgb 7.8 g/dL (12.2-16.2) L* 04/25/21 08:48 Hct 24.9 % (37.0-47.0) L 04/25/21 08:48 Plt Count 272 K/mm3 (142-424) 04/25/21 08:48 BUN 26 mg/dl (7-17) H 04/25/21 08:48 Creatinine 0.90 mg/dl (0.52-1.04) 04/25/21 08:48 Estimated Creat Clear 69 mL/min (50-200) 04/25/21 08:48 Clinical Trial Participant: No - Prophylaxis VTE Prophylaxis Ordered?: Yes Types of VTE Prophylaxis: TEDS Knee High
--- NOTE | 2021-04-25 10:22 | HMH.PHAINT ---
verified home medication list using list from outpatient pharmacy and physicians office
[2021-04-25 10:51] LABS: Coronavirus 19, PCR Not Detected (NotDetected); Influenza A, PCR Not Detected (NotDetected); Influenza B, PCR Not Detected (NotDetected)
--- NOTE | 2021-04-25 12:05 | SW/DCPLANNER ---
PATIENT ADMITTED TO [facility] WITH DIVERTICULITIS, SHE IS A RESIDENT OF [facility] AND IS SKILLED UNDER HER MCR A BENEFIT...I MADE CONTACT WITH [facility] AND THEY ARE HOLDING HER BED FOR A RETURN...DISPOSITION IS UNCERTAIN BUT WILL KEEP FACILITY INFORMED OF DISCHARGE...
[2021-04-25 16:00] VITALS: BP 167/60; PULSE 89; RESP 14; TEMP 36.8; O2SAT 97
[2021-04-25 20:00] VITALS: BP 160/58; PULSE 88; RESP 16; TEMP 36.8; O2SAT 97
[2021-04-25 21:50] LABS: POC Glucose,Bedside 127 (70-110)
--- NOTE | 2021-04-25 22:50 | PC.NURSE ---
She is alert to person. She did not answer her birthday when asked but instead kept repeating birthday. Her speech is clear at times and mumbled at others. She continues on RA. 2+edema to BUE and 3+ edema to BLE. Safety set and call light within reach.
[2021-04-26 03:28] VITALS: BP 183/81; PULSE 87; RESP 16; TEMP 36.4; O2SAT 98
[2021-04-26 05:00] VITALS: BMI 31.6
[2021-04-26 05:31] LABS: POC Glucose,Bedside 152 (70-110)
[2021-04-26 07:35] LABS: Alanine Aminotransferase 14 U/L (12-78); Albumin/Globulin Ratio 1.1 (1.1-1.8); Alkaline Phosphatase 102 U/L (38-126); Anion Gap 7.1 mEq/L (5-15); Aspartate Amino Transferase 24 U/L (14-36); Bilirubin,Total 0.4 mg/dl (0.2-1.3); Blood Urea Nitrogen 19 mg/dl (7-17); Calcium 8.6 mg/dl (8.4-10.2); Carbon Dioxide 24 mmol/L (22.0-30.0); Chloride 117 mmol/L (98-107); Creatinine Clearance Estimated 67 mL/min (50-200); Estimated Glomerular Filt Rate 60 ml/min (>60); GFR (African American) 73 ML/MIN (>60); Globulin 2.8 g/dL (1.3-3.2); Glucose 136 mg/dl (74-100); Potassium 4.1 mmoL/L (3.5-5.1); Sodium 144 mmol/L (136-145); Total Protein,Serum 5.8 g/dl (6.3-8.2)
--- NOTE | 2021-04-26 07:40 | HMH.ACPN2 ---
<Edie Sparks - Last Filed: 04/26/21 07:59> Internal Medicine - PN: Subj *Date: 04/26/21 *Time: 07:59 Interval history: Patient repeatedly says help me help me. She further states that she hurts all over. When trying to determine what hurts the most she says her stomach. She is also nauseated. She has not vomited. Nursing states she has done this throughout the night. Patient also states she cannot open her eyes. She states she cannot see. Blood chemistries show sodium of 144 and potassium of 4.1. Renal function is normal. Liver function studies normal except for a low albumin at 3. H&H was 7.8 and 24.9 yesterday. CBC is pending thus far. Exam Vital signs and Labs for Last 24 Hours: Temp Pulse Resp BP Pulse Ox 97.5 F L 87 16 183/81 H 98 04/26/21 03:28 04/26/21 03:28 04/26/21 03:28 04/26/21 03:28 04/26/21 03:28 Laboratory Results - last 24 hr 04/25/21 08:48: WBC 4.5 L, RBC 2.63 L, Hgb 7.8 L*, Hct 24.9 L, MCV 94.8, MCH 29.8, MCHC 31.4 L, RDW 13.4, Plt Count 272, MPV 7.6, Neut % (Auto) 53.9, Lymph % (Auto) 35.5, [place] % (Auto) 7.0, Eos % (Auto) 2.8, Baso % (Auto) 0.8, Neut # (Auto) 2.4, Lymph # (Auto) 1.6, [place] # (Auto) 0.3, Eos # (Auto) 0.1, Baso # (Auto) 0.0 04/25/21 08:48: Sodium 144, Potassium 4.6, Chloride 116 H, Carbon Dioxide 26, Anion Gap 6.6, BUN 26 H, Creatinine 0.90, Estimated Creat Clear 69, Estimated GFR 60, Est GFR ( Amer) 73, Glucose 136 H, Calcium 8.5, Magnesium 1.6 04/25/21 10:45: SARS-CoV-2 (PCR) Not detected, Influenza A Untype (PCR) Not detected, Influenza Type B (PCR) Not detected 04/25/21 20:38: POC Glucose 127 H 04/26/21 04:53: POC Glucose 152 H 04/26/21 06:54: Sodium 144, Potassium 4.1, Chloride 117 H, Carbon Dioxide 24, Anion Gap 7.1, BUN 19 H D, Creatinine 0.90, Estimated Creat Clear 67, Estimated GFR 60, Est GFR ( Amer) 73, Glucose 136 H, Calcium 8.6, Total Bilirubin 0.4, AST 24, ALT 14, Alkaline Phosphatase 102, Total Protein 5.8 L, Albumin 3.0 L, Globulin 2.8, Albumin/Globulin Ratio 1.1 I & O for Last 24 hours: Intake & Output 04/23/21 04/24/21 04/25/21 04/26/21 11:59 11:59 11:59 11:59 Intake Total 1300 / 1300 639 / 639 Output Total 150 / 150 Balance 1300 / 1300 489 / 489 Weight 217 lb 9 oz 213 lb 9 oz - Constitutional no acute distress Comments: Patient appears to be uncomfortable. - *Routine HEENT Exam Comments: Eyes remain closed during most of assessment. She did open her eyes and states that she can see me. She also notes my fingers. - *Routine Respiratory Exam Present: CTA bilaterally (Anteriorly and posteriorly) Comments: Patient was able to sit up with some assistance for assessment of her chest - *Routine Cardiovascular Exam Present: RRR - *Routine Abdominal Exam Present: soft, normoactive bowel sounds, tenderness (Diffuse more so in the epigastric region) - *Routine Extremities Exam Present: calf tenderness. Absent: edema Comments: Arms and legs hurt wherever touched. - *Routine Neurological Exam Present: alert (Difficult to determine orientation.), motor deficit (Poor movement of arms bilaterally.), moving all extremities, normal speech (Is very clear). Absent: facial asymmetry Assessment and Plan (1) Vomiting Status: Acute Category: Medical Code(s): R11.10 - Vomiting, unspecified (2) Altered mental status Status: Acute Qualifiers: Altered mental status type: disorientation Qualified Code(s): R41.0 - Disorientation, unspecified Category: Medical Code(s): R41.82 - Altered mental status, unspecified (3) Cholelithiasis Status: Acute Qualifiers: Cholelithiasis location: gallbladder Cholecystitis presence: without cholecystitis Biliary obstruction: without biliary obstruction Qualified Code(s): K80.20 - Calculus of gallbladder without cholecystitis without obstruction Category: Medical Code(s): K80.20 - Calculus of gallbladder without cholecystitis without obstructi
[2021-04-26 07:56] LABS: Basophils # 0.1 K/mm3 (0-0.2); Basophils % 0.8 % (0.1-2.0); Eosinophils # 0.1 K/mm3 (0.0-0.4); Eosinophils % 0.9 % (0.1-12.0); Hematocrit 26.2 % (37.0-47.0); Hemoglobin 8.3 g/dL (12.2-16.2); Lymphocytes % 33.1 % (10-50); Mean Corpuscular HGB Conc 31.8 g/dL (31.8-35.4); Mean Corpuscular Hemoglobin 29.6 pg (27.0-31.2); Mean Corpuscular Volume 92.9 fl (81-99); Mean Platelet Volume 7.9 fl (7.4-10.4); Monocytes # 0.4 K/mm3 (0.1-1.0); Monocytes % 6.2 % (1.7-9.3); Neutrophils # 3.6 K/mm3 (1.8-7.8); Neutrophils % 58.9 % (37.0-80.0); Platelet Count 279 K/mm3 (142-424); Red Blood Count 2.82 M/mm3 (4.20-5.40); Red Cell Distribution Width 13.8 % (11.5-17.5); White Blood Count 6.1 K/mm3 (4.8-10.8)
[2021-04-26 08:00] VITALS: BP 193/85; PULSE 83; RESP 17; TEMP 36.9; O2SAT 96
[2021-04-26 11:30] VITALS: BP 192/92; PULSE 85
[2021-04-26 11:58] LABS: POC Glucose,Bedside 144 (70-110)
[2021-04-26 15:58] VITALS: BP 171/67; PULSE 72; RESP 18; TEMP 36.6; O2SAT 97
[2021-04-26 16:37] LABS: POC Glucose,Bedside 237 (70-110)
--- NOTE | 2021-04-26 18:48 | PC.NURSE ---
Pt alert and oriented this shift to person, place and situation intermittently. CB in reach. Pt has intermittently repeated help me, help me, help me , but is then unsure of what she needs. Did have x 1 episode of emesis this am, prn zofran given and pt has had no more episodes. VSS. Has had a couple loose stools this evening, have placed order for occult stool. It is uncollected at this time. Purewick in place. Dr. Manzo is aware of repeated speech and BP. AM meds given this am late r/t pt vomiting and then asleep. Mx continues. Dsg changed to coccyx- open area. VSS.
[2021-04-26 19:25] LABS: Occult Blood,Stool Positive (Negative)
[2021-04-26 20:00] VITALS: BP 136/72; PULSE 74; RESP 19; TEMP 36.6; O2SAT 96
[2021-04-26 23:06] LABS: POC Glucose,Bedside 219 (70-110)
[2021-04-27 04:00] VITALS: BP 130/66; PULSE 76; RESP 20; TEMP 36.6; O2SAT 94
--- NOTE | 2021-04-27 04:02 | PC.NURSE ---
Pt confused at times and screams out for assistance. Pt has had 2 incontinent small loose stools this shift. Dark in color. Pt has c/o pain to her neck early in shift. No other complaints stated. VSS. No other concerns at this time. Will continue to monitor.
[2021-04-27 05:00] VITALS: BMI 31.6
[2021-04-27 06:22] LABS: POC Glucose,Bedside 139 (70-110)
[2021-04-27 08:00] VITALS: BP 119/50; PULSE 68; RESP 18; TEMP 36.8; O2SAT 98
--- NOTE | 2021-04-27 08:38 | HMH.ACPN2 ---
<Meg Lopez - Last Filed: 04/27/21 08:38> Internal Medicine - PN: Subj *Date: 04/27/21 *Time: 08:38 Interval history: Patient states she hurts all over from laying in the bed for such a long period of time. She did not rest well last night. She is sitting up in the bed eating some pudding this morning and denies any abdominal pain or nausea. She would like to try and get up in a chair today. She is still a bit confused at times. Exam Vital signs and Labs for Last 24 Hours: Temp Pulse Resp BP Pulse Ox 98.3 F 68 18 119/50 L 98 04/27/21 08:00 04/27/21 08:00 04/27/21 08:00 04/27/21 08:00 04/27/21 08:00 Laboratory Results - last 24 hr 04/25/21 19:06: Stool Occult Blood Positive A 04/26/21 11:28: POC Glucose 144 H 04/26/21 15:44: POC Glucose 237 H 04/26/21 21:42: POC Glucose 219 H 04/27/21 05:33: POC Glucose 139 H I & O for Last 24 hours: Intake & Output 04/24/21 04/25/21 04/26/21 04/27/21 11:59 11:59 11:59 11:59 Intake Total 1300 / 1300 639 / 639 2054 / 2054 Output Total 150 / 150 300 / 300 Balance 1300 / 1300 489 / 489 1754 / 1754 Weight 217 lb 9 oz 213 lb 9 oz 213 lb 8.636 oz - Constitutional no acute distress - *Routine Respiratory Exam Present: CTA bilaterally - *Routine Cardiovascular Exam Present: RRR - *Routine Abdominal Exam Present: soft, normoactive bowel sounds. Absent: tenderness - *Routine Extremities Exam Absent: cyanosis, clubbing, edema - *Routine Skin Exam Present: warm. Absent: rash - *Routine Neurological Exam Present: alert (Able to answer questions but still confused at times) Assessment and Plan (1) Vomiting Status: Acute Category: Medical Code(s): R11.10 - Vomiting, unspecified (2) Altered mental status Status: Acute Qualifiers: Altered mental status type: disorientation Qualified Code(s): R41.0 - Disorientation, unspecified Category: Medical Code(s): R41.82 - Altered mental status, unspecified (3) Cholelithiasis Status: Acute Qualifiers: Cholelithiasis location: gallbladder Cholecystitis presence: without cholecystitis Biliary obstruction: without biliary obstruction Qualified Code(s): K80.20 - Calculus of gallbladder without cholecystitis without obstruction Category: Medical Code(s): K80.20 - Calculus of gallbladder without cholecystitis without obstruction (4) Diverticulitis Status: Acute Category: Medical Code(s): K57.92 - Diverticulitis of intestine, part unspecified, without perforation or abscess without bleeding (5) History of CVA (cerebrovascular accident) Status: Chronic Category: Medical Code(s): Z86.73 - Personal history of transient ischemic attack (TIA), and cerebral infarction without residual deficits (6) Anemia Status: Chronic Qualifiers: Anemia type: unspecified type Qualified Code(s): D64.9 - Anemia, unspecified Category: Medical Code(s): D64.9 - Anemia, unspecified (7) CAD (coronary artery disease) Status: Chronic Qualifiers: Coronary Disease-Associated Artery/Lesion type: [place] artery [place] vs. transplanted heart: [place] heart Associated angina: without angina Qualified Code(s): I25.10 - Atherosclerotic heart disease of [place] coronary artery without angina pectoris Category: Medical Code(s): I25.10 - Atherosclerotic heart disease of [place] coronary artery without angina pectoris (8) Diabetes mellitus Status: Chronic Qualifiers: Diabetes mellitus type: type 1 Diabetes mellitus complication status: with other specified complication Qualified Code(s): E10.69 - Type 1 diabetes mellitus with other specified complication Category: Medical Code(s): E11.9 - Type 2 diabetes mellitus without complications (9) Hypothyroid Status: Chronic Qualifiers: Hypothyroidism type: unspecified Qualified Code(s): E03.9 - Hypothyroidism, unspecified Category: Medical Code(s): E03.9 - Hypothyroidism, unspecif
--- NOTE | 2021-04-27 10:13 | HMH.PTEV ---
Physical Therapy Evaluation Rehab PT IP Evaluation Start: 04/27/21 08:21 Freq: ONCE Status: Active Protocol: Document 04/27/21 10:11 JESIKA (Rec: 04/27/21 10:13 [email or web address] [id number]) Subjective/History History History 80 yowf adm to [facility] with diverticulitis. She is currently a resident at [facility] and reports she had been working with therapy there. Subjective Subjective Pt with no c/o this am. Rehab PT IP Eval Objective Appearance Patient Behavior Appropriate,Cooperative Patient Orientation Person,Place,Time Difficulty following instructions none Speech Pattern Clear Ambulation Patient Able to Ambulate Yes Ambulation Observation IP General Gait Pattern Observation Shuffling Step Ambulation Distance (feet) 5 Ambulation Assistive Device None Ambulation Ability Minimal x 2 (25% assist) Balance Ability to Arise Able, uses arms to help Sitting Balance Steady, safe Standing Balance Steady, wide stance Dynamic Sitting Balance Ability Good Dynamic Standing Balance Ability Fair Transfers Bed Transfer Ability Minimal x 2 (25% assist) Chair Transfer Ability Minimal x 2 (25% assist) Sit to Stand Bed Transfer Ability Minimal x 2 (25% assist) Sit to Stand Chair Transfer Ability Minimal x 2 (25% assist) Rehab PT IP prob,goals,plan Problems Date of Evaluation: 04/27/21 PT IP Problems Bed Mobility,Transfers,Gait Rehab Potential Rehab Potential Good Plan PT Intervention Plan Bed Mobility,Transfers,Gait, Therapeutic Exercise PT Plan Frequency BID Duration LOS Discharge Goals Bed Transfer Ability Minimal x 1 (25% assist) Sit to Stand Chair Transfer Ability Minimal x 1 (25% assist) Ambulation Assistive Device Rolling Walker Ambulation Distance (feet) 20 Discharge Plan PT Discharge Plan Pt is appropriate to return to [facility] for skilled rehab at this time. G -code Required No Eval Complexity Eval Charge Codes 56380 - Moderate Complexity PHYSICIAN CERTIFICATION: I certify the specified therapy services for Dewayne Moctezuma are required, authorized, and reviewed every 30 days.
[2021-04-27 15:02] VITALS: BP 151/56; PULSE 62; RESP 18; TEMP 36.8; O2SAT 98
[2021-04-27 20:00] VITALS: BP 117/48; PULSE 70; RESP 18; TEMP 37.4; O2SAT 96
[2021-04-27 20:46] LABS: POC Glucose,Bedside 207 (70-110)
[2021-04-27 20:46] LABS: POC Glucose,Bedside 167 (70-110)
[2021-04-28] VITALS (22 sets, daily range): BP systolic 108–177; BP diastolic 42–86; PULSE 60–71; RESP 17–20; TEMP 36.6–37.3; O2SAT 96–99; BMI 31.6
[2021-04-28 01:18] LABS: POC Glucose,Bedside 222 (70-110)
[2021-04-28 06:35] LABS: POC Glucose,Bedside 108 (70-110)
[2021-04-28 07:20] LABS: Eosinophils # 0.1 K/mm3 (0.0-0.4); Eosinophils % 2.7 % (0.1-12.0); Lymphocytes % 45.2 % (10-50); Mean Corpuscular Volume 90.7 fl (81-99); Monocytes # 0.4 K/mm3 (0.1-1.0); Neutrophils # 1.8 K/mm3 (1.8-7.8); White Blood Count 4.3 K/mm3 (4.8-10.8)
[2021-04-28 07:25] LABS: Basophils % 0.4 % (0.1-2.0); Hematocrit 21.9 % (37.0-47.0); Hemoglobin 7.2 g/dL (12.2-16.2); Mean Corpuscular HGB Conc 32.8 g/dL (31.8-35.4); Mean Corpuscular Hemoglobin 29.8 pg (27.0-31.2); Mean Platelet Volume 7.9 fl (7.4-10.4); Monocytes % 9.3 % (1.7-9.3); Neutrophils % 42.3 % (37.0-80.0); Platelet Count 238 K/mm3 (142-424); Red Blood Count 2.42 M/mm3 (4.20-5.40); Red Cell Distribution Width 14.2 % (11.5-17.5)
--- NOTE | 2021-04-28 08:44 | HMH.ACPN2 ---
<Meg Lopez - Last Filed: 04/28/21 08:44> Internal Medicine - PN: Subj *Date: 04/28/21 *Time: 08:44 Interval history: Patient states she is feeling better today. She sat up in a chair all day yesterday and her body aches have improved. She was able to eat some yesterday as well. She states she feels her mentation is better as well. She denies any pain this morning. Exam Vital signs and Labs for Last 24 Hours: Temp Pulse Resp BP Pulse Ox 98.4 F 65 18 137/59 L 98 04/28/21 07:45 04/28/21 07:45 04/28/21 07:45 04/28/21 07:45 04/28/21 07:45 Laboratory Results - last 24 hr 04/27/21 11:56: POC Glucose 207 H 04/27/21 17:27: POC Glucose 167 H 04/27/21 20:41: POC Glucose 222 H 04/28/21 06:27: POC Glucose 108 04/28/21 07:08: WBC 4.3 L D, RBC 2.42 L, Hgb 7.2 L*, Hct 21.9 L*, MCV 90.7, MCH 29.8, MCHC 32.8, RDW 14.2, Plt Count 238, MPV 7.9, Neut % (Auto) 42.3, Lymph % (Auto) 45.2, [place] % (Auto) 9.3, Eos % (Auto) 2.7, Baso % (Auto) 0.4, Neut # (Auto) 1.8, Lymph # (Auto) 2.0, [place] # (Auto) 0.4, Eos # (Auto) 0.1, Baso # (Auto) 0.0 I & O for Last 24 hours: Intake & Output 04/25/21 04/26/21 04/27/21 04/28/21 11:59 11:59 11:59 11:59 Intake Total 1300 / 1300 639 / 639 205 / 4 2391 / 2391 Output Total 150 / 150 300 / 300 500 / 500 Balance 1300 / 1300 489 / 489 1754 / 1754 1891 / 1891 Weight 217 lb 9 oz 213 lb 9 oz 213 lb 8.636 oz 213 lb 8.636 oz - Constitutional no acute distress - *Routine Respiratory Exam Present: CTA bilaterally - *Routine Cardiovascular Exam Present: RRR - *Routine Abdominal Exam Present: soft, normoactive bowel sounds. Absent: tenderness - *Routine Extremities Exam Absent: cyanosis, clubbing, edema - *Routine Skin Exam Present: pallor. Absent: rash - *Routine Neurological Exam Present: alert, oriented X3 Assessment and Plan (1) Diverticulitis Status: Acute Category: Medical Code(s): K57.92 - Diverticulitis of intestine, part unspecified, without perforation or abscess without bleeding (2) Altered mental status Status: Acute Qualifiers: Altered mental status type: disorientation Qualified Code(s): R41.0 - Disorientation, unspecified Category: Medical Code(s): R41.82 - Altered mental status, unspecified (3) Cholelithiasis Status: Acute Qualifiers: Cholelithiasis location: gallbladder Cholecystitis presence: without cholecystitis Biliary obstruction: without biliary obstruction Qualified Code(s): K80.20 - Calculus of gallbladder without cholecystitis without obstruction Category: Medical Code(s): K80.20 - Calculus of gallbladder without cholecystitis without obstruction (4) History of CVA (cerebrovascular accident) Status: Chronic Category: Medical Code(s): Z86.73 - Personal history of transient ischemic attack (TIA), and cerebral infarction without residual deficits (5) Anemia Status: Chronic Qualifiers: Anemia type: unspecified type Qualified Code(s): D64.9 - Anemia, unspecified Category: Medical Code(s): D64.9 - Anemia, unspecified (6) CAD (coronary artery disease) Status: Chronic Qualifiers: Coronary Disease-Associated Artery/Lesion type: [place] artery [place] vs. transplanted heart: [place] heart Associated angina: without angina Qualified Code(s): I25.10 - Atherosclerotic heart disease of [place] coronary artery without angina pectoris Category: Medical Code(s): I25.10 - Atherosclerotic heart disease of [place] coronary artery without angina pectoris (7) Diabetes mellitus Status: Chronic Qualifiers: Diabetes mellitus type: type 1 Diabetes mellitus complication status: with other specified complication Qualified Code(s): E10.69 - Type 1 diabetes mellitus with other specified complication Category: Medical Code(s): E11.9 - Type 2 diabetes mellitus without complications (8) Hypothyroid Status: Chronic Qualifiers: Hypothyroidism type: unspecified
--- NOTE | 2021-04-28 16:50 | DIET.NUTRFU ---
Pt reports improvement GI symptoms, improved appetite, tolerating full liquids. She does report feeling of fullness in upper chest/esophagus but does not relate this to after eating exclusively. She has had some continued confusion at times which she feels has improved. PO intakes 50%, BG avg. 170, normal bowel function, no emesis past 48h, non-pitting 2+ edema present, weight appears stable however suspect inaccuracy weights recorded past 48-72h. Recommend continued slow advancement to low fiber/residue/ADA/TEODORA diet as tolerated. Pt has been provided with diet edu/counseling for Diverticulitis, Cholelithiasis, DM, and CHF. Pt encouraged to reach out with questions/concerns at any time post dc and/or f/u as OP.
[2021-04-28 17:15] LABS: POC Glucose,Bedside 178 (70-110)
[2021-04-28 17:40] LABS: POC Glucose,Bedside 214 (70-110)
--- NOTE | 2021-04-28 17:42 | HMH.ACPN ---
Internal Medicine - PN: Subj *Date: 04/28/21 *Time: 17:42 Exam Vital signs and Labs for Last 24 Hours: Temp Pulse Resp BP Pulse Ox 98.2 F 70 18 140/60 96 04/28/21 15:40 04/28/21 15:40 04/28/21 15:40 04/28/21 15:40 04/28/21 15:40 Laboratory Results - last 24 hr 04/27/21 11:56: POC Glucose 207 H 04/27/21 17:27: POC Glucose 167 H 04/27/21 20:41: POC Glucose 222 H 04/28/21 06:27: POC Glucose 108 04/28/21 07:08: WBC 4.3 L D, RBC 2.42 L, Hgb 7.2 L*, Hct 21.9 L*, MCV 90.7, MCH 29.8, MCHC 32.8, RDW 14.2, Plt Count 238, MPV 7.9, Neut % (Auto) 42.3, Lymph % (Auto) 45.2, [place] % (Auto) 9.3, Eos % (Auto) 2.7, Baso % (Auto) 0.4, Neut # (Auto) 1.8, Lymph # (Auto) 2.0, [place] # (Auto) 0.4, Eos # (Auto) 0.1, Baso # (Auto) 0.0 04/28/21 09:05: Blood Type A Positive, Antibody Screen Negative, Crossmatch (AHG) See Detail 04/28/21 12:38: POC Glucose 178 H 04/28/21 17:09: POC Glucose 214 H I & O for Last 24 hours: Intake & Output 04/25/21 04/26/21 04/27/21 04/28/21 23:59 23:59 23:59 23:59 Intake Total 1300 / 1300 1718 / 1718 1815 / 1815 1950 Output Total 450 / 450 500 / 500 0 / 0 Balance 1300 / 1150 1268 / 1268 1315 / 1315 1950 Weight 98.685 kg 96.87 kg 96.86 kg 96.86 kg Assessment and Plan (1) Diverticulitis Status: Acute Category: Medical Code(s): K57.92 - Diverticulitis of intestine, part unspecified, without perforation or abscess without bleeding (2) Altered mental status Status: Acute Qualifiers: Altered mental status type: disorientation Qualified Code(s): R41.0 - Disorientation, unspecified Category: Medical Code(s): R41.82 - Altered mental status, unspecified (3) Cholelithiasis Status: Acute Qualifiers: Cholelithiasis location: gallbladder Cholecystitis presence: without cholecystitis Biliary obstruction: without biliary obstruction Qualified Code(s): K80.20 - Calculus of gallbladder without cholecystitis without obstruction Category: Medical Code(s): K80.20 - Calculus of gallbladder without cholecystitis without obstruction (4) History of CVA (cerebrovascular accident) Status: Chronic Category: Medical Code(s): Z86.73 - Personal history of transient ischemic attack (TIA), and cerebral infarction without residual deficits (5) Anemia Status: Chronic Qualifiers: Anemia type: unspecified type Qualified Code(s): D64.9 - Anemia, unspecified Category: Medical Code(s): D64.9 - Anemia, unspecified (6) CAD (coronary artery disease) Status: Chronic Qualifiers: Coronary Disease-Associated Artery/Lesion type: [place] artery [place] vs. transplanted heart: [place] heart Associated angina: without angina Qualified Code(s): I25.10 - Atherosclerotic heart disease of [place] coronary artery without angina pectoris Category: Medical Code(s): I25.10 - Atherosclerotic heart disease of [place] coronary artery without angina pectoris (7) Diabetes mellitus Status: Chronic Qualifiers: Diabetes mellitus type: type 1 Diabetes mellitus complication status: with other specified complication Qualified Code(s): E10.69 - Type 1 diabetes mellitus with other specified complication Category: Medical Code(s): E11.9 - Type 2 diabetes mellitus without complications (8) Hypothyroid Status: Chronic Qualifiers: Hypothyroidism type: unspecified Qualified Code(s): E03.9 - Hypothyroidism, unspecified Category: Medical Code(s): E03.9 - Hypothyroidism, unspecified (9) Anemia Status: Acute Category: Medical Code(s): D64.9 - Anemia, unspecified The patient's infection will respond to the chosen ABx?: Yes Is the patient receiving the right drug, dose, and route?: Yes Could a more targeted ABx be ordered?: No (PATIENT AFEBRILE, CONT ABX.)
--- NOTE | 2021-04-28 21:09 | PC.NURSE ---
PT HAS BEEN UP IN THE CHAIR FOR SEVERAL HOURS THIS SHIFT. 2 ASSIST TO GET PT UP TO THE CHAIR OR TO THE BSC. TOLERATING FULL LIQUIDS. PT TOLERATED FIRST UNIT OF PRBC'S. BP WAS ELEVATED THIS AFTERNOON. PT RECEIVED HER 2100 DOSE OF COREG EARLY. IF BP CONTINUES TO BE ELEVATED AFTER COREG PCP STATED PT COULD HAVE NORVASC 2.5. PT HAS 1+ EDEMA NOTED TO BLE/BUE. LUNG SOUNDS DIMINISHED. REPORT HAND OFF TO GISELLA CHAVARRIA RN.
[2021-04-28 21:43] LABS: POC Glucose,Bedside 144 (70-110)
[2021-04-29] VITALS (7 sets, daily range): BP systolic 119–170; BP diastolic 46–67; PULSE 56–68; RESP 18–24; TEMP 36.8–37.1; O2SAT 95–97; BMI 30.4
[2021-04-29 02:39] LABS: Hematocrit 31.2 % (37.0-47.0)
[2021-04-29 03:14] LABS: Hemoglobin 10.1 g/dL (12.2-16.2)
[2021-04-29 06:04] LABS: POC Glucose,Bedside 122 (70-110)
--- NOTE | 2021-04-29 06:21 | PC.NURSE ---
pt has been awake t/o most of shift, received one unit of blood this shift with no s/s of transfusion reaction, has remained on room air, some expiratory wheezing noted on auscultation
--- NOTE | 2021-04-29 09:11 | HMH.DCSUM ---
General - General Admission date:: 04/25/21 Discharge date: 04/29/21 HPI HPI: Ms Dewayne Moctezuma is an 80-year-old female from [facility] with a history of type 2 diabetes mellitus, hypertension, anemia, hypothyroidism, GERD, depression, restless leg syndrome, dyslipidemia, coronary artery disease with a stent, Recent cerebellar CVA diagnosed by MRI, and recent hospitalization with a UTI who presented to [facility] with altered mental status. With evaluation in the emergency room she was felt to have diverticulitis along with Intractable vomiting. She was given a liter of IV fluids and started on Levaquin and Flagyl. She was given famotidine, Reglan, Zofran, and Compazine. She was then admitted for further evaluation and treatment. CT of the abdomen/pelvis revealed the following: IMPRESSION: 1. There is moderate-severe distal colonic diverticulosis with findings suspicious for mild diverticulitis in the proximal sigmoid colon. No evidence of perforation or abscess. 2. Small hiatal hernia. No evidence of esophageal rupture. 3. There is a 9 mm low-density indeterminate lesion in the left hepatic lobe which is new since 11/04/2019. Nonemergent MRI of the liver recommended for further characterization. 4. Gallstones without CT evidence of cholecystitis or biliary obstruction. 5. Mild generalized anasarca. 6. There is mild stranding near the pancreatic neck which may relate to systemic edema. Correlate clinically to exclude evidence of mild pancreatitis. 7. 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 8. Additional non-emergent findings detailed above. Head CT results as follows: IMPRESSION: 1. No acute intracranial process. No intracranial hemorrhage or mass effect. No interval change since 04/09/2021. 2. Atrophy and chronic microvascular changes consistent with the patient's advanced age. 3. Moderate calcific atherosclerosis. Admission laboratory data with CBC show a white blood cell count of 5500 with a hemoglobin of 9.1 hematocrit of 28.4. Blood chemistries show a potassium of 4.6 and sodium of 145. BUN is 28 and creatinine is 0.9. BNP is 699. TSH is 3.06 with a T4 of 19.4. Troponin I's have been normal x3. Lipase is 128. Liver function studies are normal. Hospital Course Hospital Course: She was admitted and started on IV Flagyl the Levaquin for her diverticulitis. For the first couple of days, she continued to show some confusion but this gradually cleared as her infection improved. Her diet was advanced. She continued to show anemia which has been an issue for the past couple months and she is known to have heme positive stool but because of her recent stroke and need for anticoagulation, she has not been able to follow through with the plan for panendoscopy. Now with this recent bout of diverticulitis, this will delay pursuing colonoscopy for the next 4 to 6 weeks until the inflammation has resolved. Her hemoglobin was monitored closely and reached a tonja of 7.2 at which point she was transfused with 2 units of packed red cells and at the time of discharge her hemoglobin is 10.1. She has had some loose stools but no abdominal pain. She remains weak and debilitated and requires ongoing therapy. Plan is for her to transfer back to [facility] for ongoing rehab. In addition to her consistent carbohydrate diet she will also need to follow a diverticular diet. She will need close monitoring of her hemoglobin and once she is clinically stable, will need to pursue panendoscopy. Objective Vital signs: Temp Pulse Resp BP Pulse Ox 98.5 F 59 L 18 119/46 L 95 04/29/21 03:26 04/29/21 03:26 04/29/21 03:26 04/29/21 03:26 04/29/21 03:26 no acute distress - *Routine HEENT Exam Head: Present: normocephalic Eye: Pr
[2021-04-29 11:42] LABS: POC Glucose,Bedside 216 (70-110)
== END 2021-04-29 16:30 ==
LOC: ER 20:54 → 2ND 04-25 02:19 → ICU 04-25 03:11 → 2ND 04-25 18:08
PROVIDERS: Nurse Practitioner Family; Admitting Provider Family Medicine; Emergency Provider Emergency Medicine; PCP Family Medicine; Visit Provider Family Medicine
DX: K57.92 Diverticulitis of intestine, part unspecified, without perforation or abscess without bleeding (principal); Z20.822 Contact with and (suspected) exposure to COVID-19; E11.9 Type 2 diabetes mellitus without complications; Z79.4 Long term (current) use of insulin; Z95.5 Presence of coronary angioplasty implant and graft; Z79.899 Other long term (current) drug therapy; I11.0 Hypertensive heart disease with heart failure; I50.9 Heart failure, unspecified; K21.9 Gastro-esophageal reflux disease without esophagitis; I25.10 Atherosclerotic heart disease of native coronary artery without angina pectoris; E03.9 Hypothyroidism, unspecified; K80.20 Calculus of gallbladder without cholecystitis without obstruction; D64.9 Anemia, unspecified; Z88.8 Allergy status to other drugs, medicaments and biological substances
CPT/HCPCS: G0378; 36415; 70450; 71045; 74176; 76705; 80048; 80053; 81001; 82272; 82962; 83690; 83735; 83880; 84145; 84436; 84443; 84484; 85014; 85018; 85025; 85651; 86140; 86850; 93005; 96365; 96367; 96375; 97110; 97162; 97530; 99284; G0328; J1956; J2405; P9016; U0003

== ENCOUNTER 2021-05-06 15:20 | Emergency (ER) | payer MEDICARE, OTHER, SELFPAY ==
[2021-05-06] VITALS (7 sets, daily range): BP systolic 138–165; BP diastolic 50–78; PULSE 58–78; RESP 16–20; TEMP 36.6–36.9; O2SAT 95–98; BMI 36.6
--- NOTE | 2021-05-06 15:27 | HMH.EDGENADL ---
ED Disposition Clinical Impression: Lower extremity edema, Anasarca, Edema due to hypoalbuminemia, Hyperglycemia due to diabetes mellitus Disposition: Xfer SNF Condition on Discharge: Fair Additional Instructions: Please start eating a high-protein diet consisting of fish and egg whites. Try to avoid fatty or fried foods. Follow-up with your primary care physician in approximately 1 week for reassessment. I strongly suggest that you try to find some compression stockings that go up to your knees for your swelling. Return to the emergency department if you feel worse in any way. Referrals: Jewel Morrow MD [Staff Physician] - 7-14 days - Critical Care Critical Care Time: No Attestation: On 05/06/21, the high probability of a clinically significant, sudden or life threatening deterioration of the following system(s) required my full and direct attention, intervention and personal management. The time I documented below is in addition to time spent performing reported procedures but includes the following listed in this critical care notation. Medical Decision Making - Medical Records Medical records reviewed: Yes: I reviewed the patient's medical records. - Wojciech Inquiry Pt receiving controlled substance: No Vital Signs: 05/06/21 15:20 05/06/21 16:00 05/06/21 16:13 Temperature 98.5 F Temperature Source Oral Pulse Rate 65 65 Pulse Rate [Radial] 70 Respiratory Rate 20 Blood Pressure 138/50 L 138/50 L Blood Pressure [Right Arm] 142/55 H Blood Pressure Mean Blood Pressure Mean [Right Arm] 84 Blood Pressure Position Blood Pressure Position [Right Arm] Sitting 02 Sat by Pulse Oximetry 98 97 97 Oxygen Delivery Method Room Air 05/06/21 16:32 05/06/21 17:01 05/06/21 17:31 Temperature Temperature Source Pulse Rate 58 L 71 68 Pulse Rate [Radial] Respiratory Rate 18 18 Blood Pressure 158/60 H 165/68 H 155/78 H Blood Pressure [Right Arm] Blood Pressure Mean 78 91 Blood Pressure Mean [Right Arm] Blood Pressure Position Blood Pressure Position [Right Arm] 02 Sat by Pulse Oximetry 95 96 98 Oxygen Delivery Method 05/06/21 18:52 Temperature 98 F Temperature Source Oral Pulse Rate 78 Pulse Rate [Radial] Respiratory Rate 16 Blood Pressure 155/54 H Blood Pressure [Right Arm] Blood Pressure Mean Blood Pressure Mean [Right Arm] Blood Pressure Position Sitting Blood Pressure Position [Right Arm] 02 Sat by Pulse Oximetry Oxygen Delivery Method Room Air - Lab Data Lab results reviewed: Yes: I reviewed the patient's lab results. Lab Results 05/06/21 15:45: Sodium 140, Potassium 4.7, Chloride 109 H, Carbon Dioxide 27, Anion Gap 8.7, BUN 20 H, Creatinine 1.20 H, Estimated Creat Clear 58, Estimated GFR 43 L, Est GFR ( Amer) 52 L, Glucose 220 H, Calcium 8.2 L, Total Bilirubin 0.2, AST 21, ALT 12, Alkaline Phosphatase 76, NT-Pro-B Natriuret Pep 468 H, Total Protein 5.5 L, Albumin 2.7 L, Globulin 2.8, Albumin/Globulin Ratio 1.0 L 05/06/21 16:05: WBC 5.9, RBC 3.48 L, Hgb 10.1 L, Hct 32.0 L, MCV 92.1, MCH 28.9, MCHC 31.4 L, RDW 15.5, Plt Count 312, MPV 7.8, Neut % (Auto) 48.8, Lymph % (Auto) 39.2, [place] % (Auto) 8.7, Eos % (Auto) 2.5, Baso % (Auto) 0.9, Neut # (Auto) 2.9, Lymph # (Auto) 2.3, [place] # (Auto) 0.5, Eos # (Auto) 0.2, Baso # (Auto) 0.1 Result diagrams: 05/06/21 16:05 05/06/21 15:45 Medical Decision Narrative: Presents to the emergency department complaining of what essentially amounts to anasarca. She denies a history of congestive heart failure. She also denies a history of renal failure. She states that she was recently admitted to this hospital and has been swollen since she has been discharged. On physical examination the patient has edema in all 4 extremities. It is pitting. The patient's work-up revealed that the patient has hypoalbuminemia with only minor renal insufficiency. The patient's BNP is also not severely elevated. Th
[2021-05-06 15:55] LABS: Chloride 109 mmol/L (98-107); Potassium 4.7 mmoL/L (3.5-5.1); Sodium 140 mmol/L (136-145)
[2021-05-06 15:57] LABS: Blood Urea Nitrogen 20 mg/dl (7-17); Creatinine Clearance Estimated 58 mL/min (50-200); Estimated Glomerular Filt Rate 43 ml/min (>60); GFR (African American) 52 ML/MIN (>60)
[2021-05-06 15:58] LABS: Alanine Aminotransferase 12 U/L (12-78); Albumin Level 2.7 g/dl (3.5-5.0); Alkaline Phosphatase 76 U/L (38-126); Anion Gap 8.7 mEq/L (5-15); Aspartate Amino Transferase 21 U/L (14-36); Bilirubin,Total 0.2 mg/dl (0.2-1.3); Calcium 8.2 mg/dl (8.4-10.2); Carbon Dioxide 27 mmol/L (22.0-30.0); Globulin 2.8 g/dL (1.3-3.2); Glucose 220 mg/dl (74-100); Total Protein,Serum 5.5 g/dl (6.3-8.2)
[2021-05-06 16:07] LABS: NT Pro Brain Natriuretic Pep. 468 pg/mL (0-450)
[2021-05-06 16:15] LABS: Basophils # 0.1 K/mm3 (0-0.2); Basophils % 0.9 % (0.1-2.0); Eosinophils # 0.2 K/mm3 (0.0-0.4); Eosinophils % 2.5 % (0.1-12.0); Hemoglobin 10.1 g/dL (12.2-16.2); Lymphocytes # 2.3 K/mm3 (0.7-4.5); Lymphocytes % 39.2 % (10-50); Mean Corpuscular HGB Conc 31.4 g/dL (31.8-35.4); Mean Corpuscular Hemoglobin 28.9 pg (27.0-31.2); Mean Corpuscular Volume 92.1 fl (81-99); Mean Platelet Volume 7.8 fl (7.4-10.4); Monocytes # 0.5 K/mm3 (0.1-1.0); Monocytes % 8.7 % (1.7-9.3); Neutrophils # 2.9 K/mm3 (1.8-7.8); Neutrophils % 48.8 % (37.0-80.0); Platelet Count 312 K/mm3 (142-424); Red Blood Count 3.48 M/mm3 (4.20-5.40); Red Cell Distribution Width 15.5 % (11.5-17.5); White Blood Count 5.9 K/mm3 (4.8-10.8)
== END 2021-05-06 18:53 ==
PROVIDERS: Emergency Provider Emergency Medicine; PCP Family Medicine
DX: R60.1 Generalized edema (principal); E88.09 Other disorders of plasma-protein metabolism, not elsewhere classified; E11.65 Type 2 diabetes mellitus with hyperglycemia; E78.5 Hyperlipidemia, unspecified; E03.9 Hypothyroidism, unspecified; K21.9 Gastro-esophageal reflux disease without esophagitis; I10 Essential (primary) hypertension; I50.9 Heart failure, unspecified
CPT/HCPCS: 80053; 83880; 85025; 99283

== ENCOUNTER 2021-06-21 08:41 | Day surgery (SDC) | payer MEDICARE, OTHER, SELFPAY ==
[2021-06-19 14:55] VITALS: BMI 38.6
[2021-06-21] VITALS (7 sets, daily range): BP systolic 86–199; BP diastolic 43–76; PULSE 71–83; RESP 18; TEMP 36.1–37; O2SAT 92–98
[2021-06-21 09:30] LABS: POC Glucose,Bedside 61 (70-110)
[2021-06-21 10:30] LABS: POC Glucose,Bedside 57 (70-110)
--- NOTE | 2021-06-21 11:25 | HMH.SCOPE ---
- Procedure: Date: 06/21/21 Patient Date of :: 1940 Procedure Performed:: Esophago-gastroduodenoscopy with biopsy Colonoscopy with polypectomy by snare Indications:: Patient is an 80-year-old female who is a shelter resident at [facility] with a history of previous stroke, renal insufficiency, diabetes, coronary artery disease. She has a history of iron deficiency anemia and Hemoccult positivity. She has required transfusion several units of packed red blood cells. Consideration was being given for pain endoscopy but then she suffered a stroke months ago. Recently she was hospitalized with some GI complaints and was noted to have findings of possible diverticulitis on CT scan. She was referred for planning of outpatient pain endoscopy once the diverticulitis had resolved. Performing Provider:: Sang Messina MD Referring Provider:: Je Cotter MD Sedation:: MAC sedation Procedure:: Patient was taken to endoscopy procedure room. She was positioned in lateral decubitus position. Adequate intravenous sedation was achieved with anesthesia titration of propofol. Olympus endoscope was inserted via the oropharynx. Esophagus was cannulated and the scope was advanced. Gastroesophageal junction was encountered at approximately 40 cm from the incisors. Stomach was cannulated and insufflated. Retroflexion revealed small hiatal hernia. Otherwise gastric lumen appeared unremarkable. Pylorus was traversed. Duodenum appeared unremarkable. Gastric antral mucosal biopsies obtained for CLOtest for H. pylori. Stomach was desufflated and the endoscope was withdrawn. Next attention was turned to colonoscopy. Digital examination was performed which was unremarkable. Variable stiffness Olympus colonoscope was inserted via the anus. Was advanced to the cecum. Colonic preparation was fair as there was particulate liquid stool and several large stool balls within the colon. However decent visualization was achieved with thorough irrigation and suctioning. Colonoscope was slowly withdrawn through the colon with careful surveillance. She had pandiverticulosis most pronounced in the left colon. She was found to have a small polyp in the transverse colon which was removed with cold snare. In the descending colon there was a small adenomatous polyp removed with cold snare. Retroflexion within the rectum revealed nonbleeding internal hemorrhoids. Colonoscope was withdrawn. Findings:: Small hiatal hernia Fair colonic preparation Pandiverticulosis Small polyps as noted above Recommendations:: No clear source on upper endoscopy or colonoscopy which would attribute to anemia etiology Complications:: None immediately apparent Estimated blood obtained (mL): 2
[2021-06-21 11:41] LABS: POC Glucose,Bedside 97 (70-110)
== END 2021-06-21 12:10 | disposition home or self-care (01) ==
LOC: OUTP 08:43
PROVIDERS: PCP Family Medicine; Visit Provider Surgery
PROC: 0DJ08ZZ Inspection of Upper Intestinal Tract, Via Natural or Artificial Opening Endoscopic (ICD-10-PCS; CPT 43235; principal; 2021-06-21 10:30)
DX: K44.9 Diaphragmatic hernia without obstruction or gangrene (principal); K63.5 Polyp of colon; K57.32 Diverticulitis of large intestine without perforation or abscess without bleeding; D50.9 Iron deficiency anemia, unspecified; I25.10 Atherosclerotic heart disease of native coronary artery without angina pectoris; Z79.82 Long term (current) use of aspirin; Z79.4 Long term (current) use of insulin; Z79.899 Other long term (current) drug therapy; Z86.73 Personal history of transient ischemic attack (TIA), and cerebral infarction without residual deficits; E78.5 Hyperlipidemia, unspecified; I10 Essential (primary) hypertension
CPT/HCPCS: 43239; 45385; 82962; 88305

== ENCOUNTER 2021-07-02 13:16 | Observation (INO) | payer MEDICARE, OTHER, SELFPAY ==
[2021-07-02] VITALS (12 sets, daily range): BP systolic 146–208; BP diastolic 44–86; PULSE 60–73; RESP 15–18; TEMP 36.8; O2SAT 93–98; BMI 37.8
--- NOTE | 2021-07-02 13:22 | CT_ITS ---
PROCEDURE INFORMATION: Exam: CT Head Without Contrast Exam date and time: 07/02/2021 1:22 PM Age: 80 years old Clinical indication: Altered mental status/memory loss; Confusion or disorientation; Additional info: Pain TECHNIQUE: Imaging protocol: Computed tomography of the head without contrast. 3D rendering (Not supervised by radiologist): MIP and/or 3D reconstructed images were created by the technologist. Radiation optimization: All CT scans at this facility use at least one of these dose optimization techniques: automated exposure control; mA and/or kV adjustment per patient size (includes targeted exams where dose is matched to clinical indication); or iterative reconstruction. COMPARISON: CT HEAD/BRAIN WO CON 04/24/2021 9:09 PM FINDINGS: Brain: No acute intracranial findings. No intracranial hemorrhage. No edema, swelling or mass-effect. Minimal white matter disease. Chronic punctate right occipital lobe calcification series 2, image 95, unchanged. Chronic meningeal calcifications.There is mild generalized cerebral atrophy. Cerebral ventricles: Ventricles are within normal limits. No hydrocephalus. Paranasal sinuses: No acute findings in the visualized sinuses. No significant sinus opacification or air-fluid levels. Mild bilateral ethmoid and right sphenoid mucosal thickening. Hypoplastic frontal sinuses. Mastoid air cells: Mastoids are unremarkable as visualized, no effusions. Orbital cavity: No acute findings in the visualized orbits. Correlate for previous bilateral lens replacement surgery. Vasculature: Atherosclerotic calcified plaques within the internal carotid artery siphons. Bones/joints: No acute skull fracture. No lytic lesions. Chronic nasal bone deformity. Soft tissues: There are no soft tissue masses or fluid collections. IMPRESSION: 1. No acute findings or significant change compared with 04/24/2021. 2. There is no CT evidence of intracranial mass, intracranial hemorrhage, or acute infarct. 3. Mild senescent changes, and non emergency findings as above.
--- NOTE | 2021-07-02 13:22 | XR_ITS ---
PROCEDURE INFORMATION: Exam: XR Chest Exam date and time: 07/02/2021 1:22 PM Age: 80 years old Clinical indication: Other: Altered mental status; Additional info: AMS TECHNIQUE: Imaging protocol: XR of the chest. Views: 1 view. COMPARISON: CR XR CHEST AP 04/24/2021 9:15 PM FINDINGS: Lungs: Unremarkable. No consolidation. Pleural spaces: Unremarkable. No pleural effusion. No pneumothorax. Heart/Mediastinum: Stable cardiac silhouette Bones/joints: Posttraumatic change in both glenohumeral joints IMPRESSION: No acute process
--- NOTE | 2021-07-02 13:25 | CT_ITS ---
PROCEDURE INFORMATION: Exam: CT Abdomen And Pelvis Without Contrast Exam date and time: 07/02/2021 1:25 PM Age: 80 years old Clinical indication: Abdominal pain; Generalized; Patient HX: Pain and discomfort also altered mental status TECHNIQUE: Imaging protocol: Computed tomography of the abdomen and pelvis without contrast. Radiation optimization: All CT scans at this facility use at least one of these dose optimization techniques: automated exposure control; mA and/or kV adjustment per patient size (includes targeted exams where dose is matched to clinical indication); or iterative reconstruction. COMPARISON: CT ABDOMEN PELVIS WO CON 04/24/2021 11:56 PM FINDINGS: Lungs: Mild opacity in the lingula and both lower lobes may represent atelectasis Heart: There is calcification of the mitral valve annulus. Liver: Normal. No mass. Gallbladder and bile ducts: Gallstones in the gallbladder. Pancreas: Normal. No ductal dilation. Spleen: Normal. No splenomegaly. Adrenal glands: Normal. No mass. Kidneys and ureters: Normal. No hydronephrosis. Stomach and bowel: Diverticulosis and Bowel wall thickening along the rectosigmoid colon. Mild pericolonic inflammatory changes. No evidence of perforation or abscess formation or bleeding. Findings consistent with acute diverticulitis. Appendix: No evidence of appendicitis. Intraperitoneal space: Unremarkable. No free air. No significant fluid collection. Vasculature: Calcified rings in the hilum of the spleen may represent calcified splenic artery aneurysm. Coronary artery calcifications may indicate coronary artery disease. Arteries: There is calcification of the aortic valve annulus. Lymph nodes: Unremarkable. No enlarged lymph nodes. Urinary bladder: Dillard catheter in the bladder Reproductive: Surgical resection of the uterus Bones/joints: Unremarkable. No acute fracture. Soft tissues: Unremarkable. IMPRESSION: 1. Diverticulosis and Bowel wall thickening along the rectosigmoid colon. Mild pericolonic inflammatory changes. No evidence of perforation or abscess formation or bleeding. Findings consistent with acute diverticulitis. 2. Gallstones in the gallbladder. Recommend gallbladder ultrasound if clinically indicated
[2021-07-02 14:12] LABS: Microscopic, Urine URINE MICROSCOPIC (MICROSCOPIC)
[2021-07-02 14:21] LABS: Appearance,Urine CLEAR (Clear); Bilirubin,Urine Negative (Negative); Blood, Urine Negative (Negative); Color,Urine YELLOW (Yellow); Glucose,Urine (UA) Negative (Negative); Ketones,Urine Negative (Negative); Leukocyte Esterase,Urine Negative (Negative); Nitrate,Urine Negative (Negative); Protein,Urine Negative (Negative); Specific Gravity, Urine 1.015 (1.005-1.030); Urobilinogen,Urine 0.2 EU/dl (0.2)
[2021-07-02 14:22] LABS: Chloride 108 mmol/L (98-107); Potassium 3.8 mmoL/L (3.5-5.1); Sodium 145 mmol/L (136-145)
[2021-07-02 14:24] LABS: Blood Urea Nitrogen 25 mg/dl (7-17); Creatinine Clearance Estimated 63 mL/min (50-200); Estimated Glomerular Filt Rate 48 ml/min (>60); GFR (African American) 58 ML/MIN (>60)
[2021-07-02 14:25] LABS: Alanine Aminotransferase 21 U/L (12-78); Albumin Level 3.5 g/dl (3.5-5.0); Albumin/Globulin Ratio 1.2 (1.1-1.8); Alkaline Phosphatase 121 U/L (38-126); Anion Gap 10.8 mEq/L (5-15); Aspartate Amino Transferase 36 U/L (14-36); Bilirubin,Total 0.2 mg/dl (0.2-1.3); Calcium 9.3 mg/dl (8.4-10.2); Carbon Dioxide 30 mmol/L (22.0-30.0); Glucose 90 mg/dl (74-100); Lipase 71 U/L (23-300); Total Protein,Serum 6.5 g/dl (6.3-8.2)
[2021-07-02 14:28] LABS: Basophils % 0.5 % (0.1-2.0); Eosinophils # 0.1 K/mm3 (0.0-0.4); Eosinophils % 1.1 % (0.1-12.0); Hemoglobin 10.1 g/dL (12.2-16.2); Lymphocytes # 1.5 K/mm3 (0.7-4.5); Lymphocytes % 29.5 % (10-50); Mean Corpuscular HGB Conc 32.4 g/dL (31.8-35.4); Mean Corpuscular Hemoglobin 31.1 pg (27.0-31.2); Mean Corpuscular Volume 95.8 fl (81-99); Mean Platelet Volume 8.8 fl (7.4-10.4); Monocytes # 0.3 K/mm3 (0.1-1.0); Monocytes % 5.8 % (1.7-9.3); Neutrophils # 3.3 K/mm3 (1.8-7.8); Neutrophils % 63.1 % (37.0-80.0); Platelet Count 328 K/mm3 (142-424); Red Blood Count 3.24 M/mm3 (4.20-5.40); White Blood Count 5.2 K/mm3 (4.8-10.8)
[2021-07-02 14:40] LABS: Troponin I < 0.01 ng/ml (0.00-0.034)
[2021-07-02 14:51] LABS: Free T4 (Free Thyroxine) 1.36 ng/dl (0.78-2.19)
[2021-07-02 14:55] LABS: Thyroid Stimulating Hormone 2.07 uIU/mL (0.465-4.68)
--- NOTE | 2021-07-02 15:23 | PC.NURSE ---
notified tobacco warehouse agent of admission, states pt will be boarding in ER until a bed is available.
--- NOTE | 2021-07-02 15:30 | HMH.EDGENADL ---
ED Disposition Clinical Impression: Acute diverticulitis, Encephalopathy Disposition: Admitted As Inpatient Condition on Discharge: Good Time of Disposition: 15:34 - Critical Care Critical Care Time: No Attestation: On 07/02/21, the high probability of a clinically significant, sudden or life threatening deterioration of the following system(s) required my full and direct attention, intervention and personal management. The time I documented below is in addition to time spent performing reported procedures but includes the following listed in this critical care notation. Medical Decision Making - Medical Records Medical records reviewed: Yes: I reviewed the patient's medical records. - Wojciech Inquiry Pt receiving controlled substance: No Vital Signs: 07/02/21 13:16 07/02/21 14:01 07/02/21 14:35 Temperature 98.2 F Temperature Source Oral Pulse Rate 60 65 Pulse Rate [Left Radial] 64 Respiratory Rate 18 15 16 Blood Pressure 146/56 H 154/78 H Blood Pressure [Right Arm] 173/83 H Blood Pressure Mean 86 Blood Pressure Mean [Right Arm] 113 02 Sat by Pulse Oximetry 93 L 97 95 Oxygen Delivery Method Room Air 07/02/21 15:00 07/02/21 15:31 07/02/21 16:00 Temperature Temperature Source Pulse Rate 65 Pulse Rate [Left Radial] Respiratory Rate 16 16 16 Blood Pressure 163/78 H 199/86 H 208/86 H Blood Pressure [Right Arm] Blood Pressure Mean 109 100 Blood Pressure Mean [Right Arm] 02 Sat by Pulse Oximetry 97 Oxygen Delivery Method 07/02/21 16:30 07/02/21 17:37 07/02/21 18:00 Temperature Temperature Source Pulse Rate 73 73 Pulse Rate [Left Radial] Respiratory Rate 16 16 Blood Pressure 189/82 H 186/84 H 196/77 H Blood Pressure [Right Arm] Blood Pressure Mean 113 118 116 Blood Pressure Mean [Right Arm] 02 Sat by Pulse Oximetry 96 96 95 Oxygen Delivery Method - Lab Data Lab Results 07/02/21 13:22: Urine Color Yellow, Urine Appearance Clear, Urine pH 6.0, Ur Specific [place] 1.015, Urine Protein Negative, Urine Glucose (UA) Negative, Urine Ketones Negative, Urine Blood Negative, Urine Nitrate Negative, Urine Bilirubin Negative, Urine Urobilinogen 0.2, Ur Leukocyte Esterase Negative, Urine RBC None, Urine WBC None, Ur Squamous Epith Cells None, Urine Bacteria None 07/02/21 14:02: WBC 5.2, RBC 3.24 L, Hgb 10.1 L, Hct 31.0 L, MCV 95.8, MCH 31.1, MCHC 32.4, RDW 15.0, Plt Count 328, MPV 8.8, Neut % (Auto) 63.1, Lymph % (Auto) 29.5, [place] % (Auto) 5.8, Eos % (Auto) 1.1, Baso % (Auto) 0.5, Neut # (Auto) 3.3, Lymph # (Auto) 1.5, [place] # (Auto) 0.3, Eos # (Auto) 0.1, Baso # (Auto) 0.0 07/02/21 14:02: Sodium 145, Potassium 3.8, Chloride 108 H, Carbon Dioxide 30, Anion Gap 10.8, BUN 25 H, Creatinine 1.10 H, Estimated Creat Clear 63, Estimated GFR 48 L, Est GFR ( Amer) 58 L, Glucose 90, Calcium 9.3, Total Bilirubin 0.2, AST 36, ALT 21, Alkaline Phosphatase 121, Troponin I < 0.01, Total Protein 6.5, Albumin 3.5, Globulin 3.0, Albumin/Globulin Ratio 1.2, Lipase 71, TSH 2.07 07/02/21 14:02: Free T4 1.36 07/02/21 14:02: Urine Opiates Screen Negative, Urine Methadone Screen Negative, Ur Barbituates Screen Negative, Ur Phencyclidine Scrn Negative, Ur Amphetamines Screen Negative, U Benzodiazepines Scrn Negative, Urine Cocaine Screen Negative, U Marijuana (THC) Screen Negative 07/02/21 15:35: Lactate 0.9 Result diagrams: 07/02/21 14:02 07/02/21 14:02 Orders (Tests/Meds): ED MEDICATIONS Generic Name Dose Route Start Last Admin Trade Name Freq PRN Reason Stop Dose Admin Piperacillin Sod/Tazobactam 50 mls @ 100 mls/hr 07/02/21 15:30 07/02/21 15:58 Sod 3.375 gm/ Sodium Chloride IV 07/16/21 15:29 100 mls/hr Q6H WILY Administration Sodium Chloride 1,000 mls @ 100 mls/hr 07/02/21 15:30 07/02/21 15:58 Sod Chlor 0.9% 1000ml Bag IV 08/01/21 15:29 100 mls/hr .Q10H WILY Administration ORDERS Category Date Time Status Troponin I Q3H Lab
[2021-07-02 15:54] LABS: Lactic Acid 0.9 mmol/L (0.7-2.1)
[2021-07-02 17:15] LABS: Troponin I < 0.01 ng/ml (0.00-0.034)
--- NOTE | 2021-07-02 17:48 | PC.NURSE ---
Pt turned, pt states is feels fine right now
[2021-07-02 18:18] LABS: Barbiturates Screen,Urine Negative ng/ml (<200); Benzodiazepines Screen,Urine Negative ng/ml (<200)
[2021-07-02 18:19] LABS: Amphetamine/Metha Screen,Urine Negative ng/ml (<1000)
[2021-07-02 18:20] LABS: Cocaine Screen,Urine Negative ng/ml (<300); Methadone Screen,Urine Negative ng/ml (<300)
[2021-07-02 18:21] LABS: Cannabinoid Screen,Urine Negative ng/ml (<50)
[2021-07-02 18:22] LABS: Opiate Screen,Urine Negative ng/ml (<300); Phencyclidine Screen,Urine Negative ng/ml (<25)
[2021-07-02 18:48] LABS: Coronavirus 19, PCR Not Detected (NotDetected); Influenza A, PCR Not Detected (NotDetected); Influenza B, PCR Not Detected (NotDetected)
--- NOTE | 2021-07-02 19:30 | PC.NURSE ---
Pt placed on supplemental 2 LPM NC d/t dropped in sats to 80s while sleeping. 2LPM NC placed and SpO2 increased to mid 90s quickly. Dr. Shannon notified.
--- NOTE | 2021-07-02 20:45 | PC.NURSE ---
Pt's daughter called, gave update on pt. Pt adjusted bed at this time. She has been sleeping and resting quietly.
[2021-07-02 23:43] LABS: POC Glucose,Bedside 129 (70-110)
[2021-07-03] VITALS (9 sets, daily range): BP systolic 129–158; BP diastolic 44–75; PULSE 50–72; RESP 14–18; TEMP 36.7–37.1; O2SAT 96–99; BMI 38.6; BMI 39.2; BMI 39.1
--- NOTE | 2021-07-03 00:56 | PC.NURSE ---
patient up to floor via stretcher at this time
--- NOTE | 2021-07-03 06:56 | PC.NURSE ---
Patient has had an uneventful night this shift. No s/s of acute distress noted this shift, call light within reach, bed at lowest level for safety; will continue to monitor.
--- NOTE | 2021-07-03 07:14 | P.CONPHA_ITS ---
[facility] Pharmacy VTE Monitoring - Patient Demographics Admission date: 07/02/21 Report Date: 07/03/21 Time: 07:14 Allergies/Adverse Reactions: Patient Allergies Iodinated Contrast Media Allergy (Intermediate, Verified 06/21/21 09:01) naproxen [NAPROXEN] Allergy (Mild, Verified 06/21/21 09:01) Height: 1.63 m Weight: 104.145 kg Patient Problems: Current Active Problems Encephalopathy (Acute) Acute diverticulitis (Acute) - VTE Risk Labs: VTE Related Lab Results Hgb 10.1 g/dL (12.2-16.2) L 07/02/21 14:02 Hct 31.0 % (37.0-47.0) L 07/02/21 14:02 Plt Count 328 K/mm3 (142-424) 07/02/21 14:02 BUN 25 mg/dl (7-17) H 07/02/21 14:02 Creatinine 1.10 mg/dl (0.52-1.04) H 07/02/21 14:02 Estimated Creat Clear 63 mL/min (50-200) 07/02/21 14:02 - Prophylaxis VTE Prophylaxis Ordered?: Yes Types of VTE Prophylaxis: TEDS Knee High Location of Applied Device: Bilateral Lower Extremeties
--- NOTE | 2021-07-03 07:24 | HMH.PHAINT ---
medication reconciliation complete using [facility] MAR and previous discharge paperwork
--- NOTE | 2021-07-03 08:32 | HMH.HP ---
*Admission Date: 07/02/21 <Edie Sparks - 07/03/21 08:52> *Chief complaint: Altered mental status <Edie Sparks - 07/03/21 08:52> *History of present illness: Ms. Moctezuma is an 80-year-old female with a history of type 2 diabetes mellitus, hyperlipidemia, hypothyroid, paroxysmal atrial fibrillation, DVT, osteoporosis, hypertension, GERD, depression, restless leg syndrome, and ASCVD status post coronary stents who was sent to [facility] emergency room from [facility] for evaluation due to altered mental status. She did have a recent hospitalization in March 2021 with diverticulitis and required blood transfusions during this admission due to ongoing chronic anemia and chronic GI blood loss. She has also had previous hospitalizations for urinary tract infections. She remains a resident at [facility] for ongoing care. Patient does not recall why she came to the hospital but would like to know why she is here. Following is documentation from the emergency room: HPI narrative: Patient is an 80-year-old female presented to the emergency department today for an acute change in mental status. Patient was sent from the residential. She originally is a GCS of 15 however over the past 24 hours that she has become more confused. She has a history of urinary tract infections in the past however they sent her to the emergency department today to be evaluated. Patient does complain of some abdominal pain and she is tender in her abdomen. She is alert and oriented x2. She knows that she is in the hospital and can recite her name back to you. Otherwise she is a poor historian at this time given her mental status. With work-up in the emergency room: CT of the abdomen/pelvis revealed diverticulosis And bowel wall thickening along the rectal sigmoid colon; Mild pericolonic inflammatory changes And no evidence of perforation or abscess formation or bleeding; Findings consistent with acute diverticulitis; Also showed gallstones in the gallbladder. Chest x-ray was negative. CT of the head showed no acute findings or significant change. Patient was given piperacillin and started on IV fluids and 100 an hour. CBC showed a hemoglobin of 10.1 hematocrit of 31 and white blood cell count of 5200. Chemistry showed a sodium of 145 potassium of 3.8 and a BUN of 25 and creatinine 1.10. Troponin I's were normal x2. To note patient had EGD and colonoscopy on 06/21/2021/ Dr. Messina, which showed small hiatal hernia, pandiverticulosis, and several small polyps were removed. Pathology report on these were negative. <SparksEdie hicks 07/03/21 13:29> [facility] History Medical History: Reports:: Atherosclerotic Heart Disease, Congestive Heart Failure, Coronary Artery Disease, Cerebrovascular Accident, Deep Vein Thrombosis, Depression, Diabetes Mellitus Type 2, Gastroesophageal Reflux Disease(GERD), Hyperlipidemia, Hypertension, Urinary Tract Infection Denies:: Cancer, Diabetes Mellitus Type 1, Internal Pacemaker, MRSA, Seizures <Edie Sparks 07/03/21 08:52> *Have you ever received a pneumonia vaccine?: Yes <Edie Sparks 07/03/21 08:52> *Have you received a flu vaccine this season?: Yes <Edie Sparks 07/03/21 08:52> Other Medical History: Reports: Anemia, Arthritis, Hypothyroidism, Thyroid Disease <Edie Sparks 07/03/21 08:52> Other Surgeries: Yes: Appendectomy, Cardiac Catheterization, Cholecystectomy, Colonoscopy, Coronary Stent, Hernia Repair, Hysterectomy-Total, Skin Cancer Excision, Other. No: Pacemaker <Edie Sparks 07/03/21 08:52> Amputation: No <Edie Sparks 07/03/21 08:52> Fractures: Yes <Edie Sparks 07/03/21 08:52> - *Social History Last grade of school completed: High school graduate <Edie Sparks 07/03/21 08:52> Smoking Status: Never smoker <Edie Sparks 07/03/21 08:52> Alcohol Intake: never <Edie Sparks 07/03/21 08:52> Alcohol Intake Frequency:: other <H
--- NOTE | 2021-07-03 15:06 | SW/DCPLANNER ---
Addendum entered by Kimber Browning 07/04/21 11:43: COVID is negative and has been faxed to [facility]. Addendum entered by Kimber Browning 07/04/21 09:23: I have updated Shikha with [facility] that this patient will return today. Shikha has asked that patient have an additional COVID swab prior to returning: this has been ordered by Dr Cotter. Original Note: This patient currently resides at [facility]. I spoke with Shikha from [facility] to confirm this patient is currently private pay at their facility. I will continue to follow up with Shikha until patient is medically stable for discharge.
[2021-07-03 16:50] LABS: POC Glucose,Bedside 142 (70-110)
[2021-07-03 16:50] LABS: POC Glucose,Bedside 138 (70-110)
[2021-07-03 16:50] LABS: POC Glucose,Bedside 114 (70-110)
[2021-07-03 19:57] LABS: POC Glucose,Bedside 109 (70-110)
[2021-07-03 21:58] LABS: POC Glucose,Bedside 215 (70-110)
[2021-07-04] VITALS: BP 118/46; PULSE 58; PULSE 70; RESP 16; TEMP 36.9; O2SAT 99
[2021-07-04 04:00] VITALS: BP 118/49; PULSE 55; PULSE 60; RESP 12; TEMP 36.9; O2SAT 97
[2021-07-04 05:00] VITALS: BMI 38.6
[2021-07-04 05:44] LABS: POC Glucose,Bedside 145 (70-110)
[2021-07-04 06:43] LABS: Basophils % 0.7 % (0.1-2.0); Eosinophils # 0.1 K/mm3 (0.0-0.4); Eosinophils % 2.2 % (0.1-12.0); Hematocrit 28.9 % (37.0-47.0); Hemoglobin 9.3 g/dL (12.2-16.2); Lymphocytes % 36.2 % (10-50); Mean Corpuscular HGB Conc 32.2 g/dL (31.8-35.4); Mean Corpuscular Hemoglobin 31.4 pg (27.0-31.2); Mean Corpuscular Volume 97.7 fl (81-99); Mean Platelet Volume 8.6 fl (7.4-10.4); Monocytes # 0.5 K/mm3 (0.1-1.0); Monocytes % 8.1 % (1.7-9.3); Neutrophils % 52.8 % (37.0-80.0); Platelet Count 277 K/mm3 (142-424); Red Blood Count 2.96 M/mm3 (4.20-5.40); White Blood Count 5.6 K/mm3 (4.8-10.8)
[2021-07-04 08:00] VITALS: BP 139/41; PULSE 60; RESP 18; TEMP 37.1; O2SAT 98
[2021-07-04 08:03] LABS: Anion Gap 6.3 mEq/L (5-15); Blood Urea Nitrogen 19 mg/dl (7-17); Calcium 8.2 mg/dl (8.4-10.2); Carbon Dioxide 30 mmol/L (22.0-30.0); Chloride 111 mmol/L (98-107); Creatinine Clearance Estimated 72 mL/min (50-200); Estimated Glomerular Filt Rate 53 ml/min (>60); GFR (African American) 64 ML/MIN (>60); Glucose 122 mg/dl (74-100); Potassium 3.3 mmoL/L (3.5-5.1); Sodium 144 mmol/L (136-145)
--- NOTE | 2021-07-04 08:25 | HMH.ACPN2 ---
<Edie Sparks - Last Filed: 07/04/21 08:25> Internal Medicine - PN: Subj *Date: 07/04/21 *Time: 08:25 Interval history: Patient states she does feel better today. She took her full liquid diet without problems. She denies abdominal pain, nausea. She states her bowels have not moved. She denies chest pain and shortness of breath. Exam Vital signs and Labs for Last 24 Hours: Temp Pulse Resp BP Pulse Ox 98.5 F 55 L 12 118/49 L 97 07/04/21 04:00 07/04/21 04:00 07/04/21 04:00 07/04/21 04:00 07/04/21 04:00 Laboratory Results - last 24 hr 07/03/21 05:32: POC Glucose 109 07/03/21 08:58: POC Glucose 138 H 07/03/21 11:00: POC Glucose 114 H 07/03/21 16:43: POC Glucose 142 H 07/03/21 21:44: POC Glucose 215 H 07/04/21 05:32: POC Glucose 145 H 07/04/21 06:37: WBC 5.6, RBC 2.96 L, Hgb 9.3 L, Hct 28.9 L, MCV 97.7, MCH 31.4 H, MCHC 32.2, RDW 15.0, Plt Count 277, MPV 8.6, Neut % (Auto) 52.8, Lymph % (Auto) 36.2, [place] % (Auto) 8.1, Eos % (Auto) 2.2, Baso % (Auto) 0.7, Neut # (Auto) 3.0, Lymph # (Auto) 2.0, [place] # (Auto) 0.5, Eos # (Auto) 0.1, Baso # (Auto) 0.0 07/04/21 : Sodium 144, Potassium 3.3 L, Chloride 111 H, Carbon Dioxide 30, Anion Gap 6.3, BUN 19 H, Creatinine 1.00, Estimated Creat Clear 72, Estimated GFR 53 L, Est GFR ( Amer) 64, Glucose 122 H, Calcium 8.2 L I & O for Last 24 hours: Intake & Output 07/01/21 07/02/21 07/03/21 07/04/21 11:59 11:59 11:59 11:59 Intake Total 550 / 550 2160 / 2160 Output Total 4400 / 4400 Balance 550 / 550 -2240 / -2240 Weight 229 lb 9.607 oz 226 lb 6.4 oz - Constitutional no acute distress Comments: Appears comfortable. Has eaten her full liquid diet without problems. - *Routine Respiratory Exam Present: CTA bilaterally - *Routine Cardiovascular Exam Present: RRR - *Routine Abdominal Exam Present: soft, normoactive bowel sounds. Absent: tenderness - *Routine Extremities Exam Absent: edema, calf tenderness - *Routine Neurological Exam Present: alert, oriented X3 Assessment and Plan (1) Acute diverticulitis Status: Acute Category: Medical Code(s): K57.92 - Diverticulitis of intestine, part unspecified, without perforation or abscess without bleeding (2) Altered mental status Status: Acute Qualifiers: Altered mental status type: disorientation Qualified Code(s): R41.0 - Disorientation, unspecified Category: Medical Code(s): R41.82 - Altered mental status, unspecified (3) Anemia Status: Acute Qualifiers: Anemia type: other cause Other causes of anemia: other cause, not classified Qualified Code(s): D64.89 - Other specified anemias Category: Medical Code(s): D64.9 - Anemia, unspecified (4) Cholelithiasis Status: Acute Qualifiers: Cholelithiasis location: gallbladder Cholecystitis presence: without cholecystitis Biliary obstruction: without biliary obstruction Qualified Code(s): K80.20 - Calculus of gallbladder without cholecystitis without obstruction Category: Medical Code(s): K80.20 - Calculus of gallbladder without cholecystitis without obstruction (5) Diabetes mellitus Status: Chronic Qualifiers: Diabetes mellitus type: type 1 Diabetes mellitus complication status: with other specified complication Qualified Code(s): E10.69 - Type 1 diabetes mellitus with other specified complication Category: Medical Code(s): E11.9 - Type 2 diabetes mellitus without complications (6) History of CVA (cerebrovascular accident) Status: Chronic Category: Medical Code(s): Z86.73 - Personal history of transient ischemic attack (TIA), and cerebral infarction without residual deficits (7) Hypertension Status: Chronic Qualifiers: Hypertension type: essential hypertension Category: Medical Code(s): I10 - Essential (primary) hypertension (8) Hypothyroid Status: Chronic Qualifiers: Hypothyroidism type: unspecified Qualified Code(s): E03.9 - Hypoth
--- NOTE | 2021-07-04 08:38 | HMH.DCSUM ---
General - General Admission date:: 07/03/21 <Harry Cotter - 08/06/21 13:38> 07/03/21 <ClareEdie - 07/04/21 08:57> Discharge date: 07/04/21 <ClareTiffanyEdie - 07/04/21 08:57> HPI HPI: Ms. Moctezuma is an 80-year-old female with a history of type 2 diabetes mellitus, hyperlipidemia, hypothyroid, paroxysmal atrial fibrillation, DVT, osteoporosis, hypertension, GERD, depression, restless leg syndrome, and ASCVD status post coronary stents who was sent to [facility] emergency room from [facility] for evaluation due to altered mental status. She did have a recent hospitalization in March 2021 with diverticulitis and required blood transfusions during this admission due to ongoing chronic anemia and chronic GI blood loss. She also had previous hospitalizations for urinary tract infections. She remains a resident at [facility] for ongoing care. Patient did not recall why she came to the hospital but questioned why she was in [facility]. Following is documentation from the emergency room: HPI narrative: Patient is an 80-year-old female presented to the emergency department today for an acute change in mental status. Patient was sent from the longterm. She originally is a GCS of 15 however over the past 24 hours that she has become more confused. She has a history of urinary tract infections in the past however they sent her to the emergency department today to be evaluated. Patient does complain of some abdominal pain and she is tender in her abdomen. She is alert and oriented x2. She knows that she is in the hospital and can recite her name back to you. Otherwise she is a poor historian at this time given her mental status. With work-up in the emergency room: CT of the abdomen/pelvis revealed diverticulosis and bowel wall thickening along the rectal sigmoid colon; Mild pericolonic inflammatory changes and no evidence of perforation or abscess formation or bleeding; Findings consistent with acute diverticulitis; Also showed gallstones in the gallbladder. Chest x-ray was negative. CT of the head showed no acute findings or significant change. Patient was given piperacillin and started on IV fluids at 100 an hour. CBC showed a hemoglobin of 10.1 hematocrit of 31 and white blood cell count of 5200. Chemistry showed a sodium of 145, potassium of 3.8 and a BUN of 25 and creatinine 1.10. Troponin I's were normal x2. To note patient had EGD and colonoscopy on 06/21/2021/ Dr. Messina, which showed small hiatal hernia, pandiverticulosis, and several small polyps were removed. Pathology report on these were negative. <Edie Sparks - 07/04/21 08:57> Hospital Course Hospital Course: On admission patient was started on IV fluids at 100 an hour and Pipracillin. She had a good urinary output. She was given a full liquid diet which she tolerated well. She continually denied abdominal pain and nausea. She had no vomiting. Her bowels did move. Urinalysis was negative. Blood cultures results were pending at time of discharge. On 07/04/2021 patient was stable and ready for discharge back to [facility]. She will receive metronidazole and Levaquin for her diverticulitis. Other meds as per medication reconciliation sheet. She will continue on with a diabetic diet. See data for specific test results. Patient would like her toenails clipped. Please refer to podiatry at the nursing facility for this. <Edie Sparks - 07/04/21 08:57> Objective Vital signs: Temp Pulse Resp BP Pulse Ox 98.8 F 60 18 139/41 L 98 07/04/21 08:00 07/04/21 08:00 07/04/21 08:00 07/04/21 08:00 07/04/21 08:00 <Harry Cotter - 08/06/21 13:38> Temp Pulse Resp BP Pulse Ox 98.5 F 55 L 12 118/49 L 97 07/04/21 04:00 07/04/21 04:00 07/04/21 04:00 07/04/21 04:00 07/04/21 04:00 <Edie Sparks - 07/04/21 08:57>
[2021-07-04 09:29] LABS: Coronavirus 19, PCR Not Detected (NotDetected); Influenza A, PCR Not Detected (NotDetected); Influenza B, PCR Not Detected (NotDetected)
--- NOTE | 2021-07-04 10:44 | PC.NURSE ---
Patient ready for discharge to [facility]. Report called to Leisa at 1040. Spoke with son and updated him of patent discharge plan. Dillard catheter d/c'd. EMS called to transport patient. Patient received dose of zosyn before discharge.
[2021-07-04 16:42] LABS: POC Glucose,Bedside 243 (70-110)
== END 2021-07-04 11:35 ==
LOC: ER 15:34 → 2ND 07-03 00:19
PROVIDERS: Nurse Practitioner Family; Admitting Provider Family Medicine; Emergency Provider Emergency Medicine; PCP Family Medicine; Visit Provider Family Medicine
DX: K57.32 Diverticulitis of large intestine without perforation or abscess without bleeding (principal); Z20.822 Contact with and (suspected) exposure to COVID-19; Z95.5 Presence of coronary angioplasty implant and graft; E11.9 Type 2 diabetes mellitus without complications; I48.0 Paroxysmal atrial fibrillation; I11.0 Hypertensive heart disease with heart failure; I50.9 Heart failure, unspecified; E03.9 Hypothyroidism, unspecified; Z79.899 Other long term (current) drug therapy; Z88.8 Allergy status to other drugs, medicaments and biological substances; K80.20 Calculus of gallbladder without cholecystitis without obstruction; Z79.4 Long term (current) use of insulin
CPT/HCPCS: G0378; 70450; 71045; 74176; 80048; 80053; 80305; 81001; 82962; 83605; 83690; 84439; 84443; 84484; 85025; 87040; 96365; 96366; 99284; C9803; J2543; U0003; U0005

== ENCOUNTER 2021-07-05 00:26 | Emergency (ER) | payer MEDICARE, OTHER, SELFPAY ==
[2021-07-05] VITALS (10 sets, daily range): BP systolic 123–154; BP diastolic 47–57; PULSE 66–70; RESP 20–21; TEMP 36.7–36.8; O2SAT 83–96; BMI 38.2
[2021-07-05 04:05] LABS: Alanine Aminotransferase 18 U/L (12-78); Alkaline Phosphatase 86 U/L (38-126); Anion Gap 5.3 mEq/L (5-15); Aspartate Amino Transferase 26 U/L (14-36); Bilirubin,Total 0.3 mg/dl (0.2-1.3); Blood Urea Nitrogen 19 mg/dl (7-17); C-Reactive Protein 5.7 mg/L (0-4); Calcium 8.5 mg/dl (8.4-10.2); Carbon Dioxide 31 mmol/L (22.0-30.0); Chloride 110 mmol/L (98-107); Creatinine Clearance Estimated 73 mL/min (50-200); Estimated Glomerular Filt Rate 53 ml/min (>60); GFR (African American) 64 ML/MIN (>60); Globulin 2.9 g/dL (1.3-3.2); Glucose 123 mg/dl (74-100); Occult Blood,Stool Positive (Negative); Potassium 3.3 mmoL/L (3.5-5.1); Procalcitonin 0.064 ng/mL (0.0-2.0); Sodium 143 mmol/L (136-145); Total Protein,Serum 5.9 g/dl (6.3-8.2)
[2021-07-05 04:06] LABS: White Blood Count 6.9 K/mm3 (4.8-10.8)
[2021-07-05 04:07] LABS: Hematocrit 31.3 % (37.0-47.0); Hemoglobin 9.9 g/dL (12.2-16.2); Mean Corpuscular HGB Conc 31.7 g/dL (31.8-35.4); Mean Corpuscular Hemoglobin 30.7 pg (27.0-31.2); Mean Corpuscular Volume 96.9 fl (81-99); Platelet Count 254 K/mm3 (142-424); Red Blood Count 3.23 M/mm3 (4.20-5.40); Red Cell Distribution Width 14.9 % (11.5-17.5)
[2021-07-05 04:08] LABS: Basophils # 0.1 K/mm3 (0-0.2); Basophils % 0.9 % (0.1-2.0); Eosinophils # 0.1 K/mm3 (0.0-0.4); Eosinophils % 1.5 % (0.1-12.0); Erythrocyte Sedimentation Rate 74 mm/hr (0-30); Lymphocytes % 29.6 % (10-50); Mean Platelet Volume 9.8 fl (7.4-10.4); Monocytes # 0.5 K/mm3 (0.1-1.0); Monocytes % 7.6 % (1.7-9.3); Neutrophils % 58.8 % (37.0-80.0)
--- NOTE | 2021-07-05 06:09 | HMH.EDGIBL ---
ED Disposition Clinical Impression: Diverticulosis Anemia Qualifiers: Anemia type: unspecified type Qualified Code(s): D64.9 - Anemia, unspecified Disposition: Home, Self-Care Condition on Discharge: Good Instructions: DI for Gastrointestinal Bleeding Additional Instructions: continue present care Referrals: Jewel Morrow MD [Primary Care Provider] - - Critical Care Critical Care Time: No Attestation: On 07/05/21, the high probability of a clinically significant, sudden or life threatening deterioration of the following system(s) required my full and direct attention, intervention and personal management. The time I documented below is in addition to time spent performing reported procedures but includes the following listed in this critical care notation. Medical Decision Making - Medical Records Medical records reviewed: Yes: I reviewed the patient's medical records. - Wojciech Inquiry Pt receiving controlled substance: No Vital Signs: 07/05/21 00:25 07/05/21 01:30 07/05/21 02:00 Temperature 98.3 F Temperature Source Oral Pulse Rate 70 Pulse Rate [Right Radial] 70 Respiratory Rate 21 Blood Pressure 123/55 L 138/47 L Blood Pressure [Right Arm] 123/55 L Blood Pressure Mean [Right Arm] 77 Blood Pressure Source Blood Pressure Source [Right Arm] Automatic Cuff Blood Pressure Position Blood Pressure Position [Right Arm] Supine 02 Sat by Pulse Oximetry 95 96 Oxygen Delivery Method Room Air Room Air 07/05/21 02:30 07/05/21 03:00 07/05/21 03:30 Temperature Temperature Source Pulse Rate 66 69 66 Pulse Rate [Right Radial] Respiratory Rate Blood Pressure 144/52 H 149/56 H 153/57 H Blood Pressure [Right Arm] Blood Pressure Mean [Right Arm] Blood Pressure Source Blood Pressure Source [Right Arm] Blood Pressure Position Blood Pressure Position [Right Arm] 02 Sat by Pulse Oximetry 96 96 96 Oxygen Delivery Method 07/05/21 04:00 07/05/21 04:30 07/05/21 05:00 Temperature Temperature Source Pulse Rate 70 69 69 Pulse Rate [Right Radial] Respiratory Rate Blood Pressure 154/57 H 147/53 H 142/56 H Blood Pressure [Right Arm] Blood Pressure Mean [Right Arm] Blood Pressure Source Blood Pressure Source [Right Arm] Blood Pressure Position Blood Pressure Position [Right Arm] 02 Sat by Pulse Oximetry 92 L 83 L 92 L Oxygen Delivery Method 07/05/21 05:49 Temperature 98.1 F Temperature Source Pulse Rate 70 Pulse Rate [Right Radial] Respiratory Rate 20 Blood Pressure 146/57 H Blood Pressure [Right Arm] Blood Pressure Mean [Right Arm] Blood Pressure Source Automatic Cuff Blood Pressure Source [Right Arm] Blood Pressure Position Sitting Blood Pressure Position [Right Arm] 02 Sat by Pulse Oximetry Oxygen Delivery Method Room Air - Lab Data Lab results reviewed: Yes: I reviewed the patient's lab results. Lab Results 07/05/21 01:14: Stool Occult Blood Positive A 07/05/21 01:14: WBC 6.9, RBC 3.23 L, Hgb 9.9 L, Hct 31.3 L, MCV 96.9, MCH 30.7, MCHC 31.7 L, RDW 14.9, Plt Count 254, MPV 9.8, Neut % (Auto) 58.8, Lymph % (Auto) 29.6, [place] % (Auto) 7.6, Eos % (Auto) 1.5, Baso % (Auto) 0.9, Neut # (Auto) 4.0, Lymph # (Auto) 2.0, [place] # (Auto) 0.5, Eos # (Auto) 0.1, Baso # (Auto) 0.1, ESR 74 H 07/05/21 01:14: Sodium 143, Potassium 3.3 L, Chloride 110 H, Carbon Dioxide 31 H, Anion Gap 5.3, BUN 19 H, Creatinine 1.00, Estimated Creat Clear 73, Estimated GFR 53 L, Est GFR ( Amer) 64, Glucose 123 H, Calcium 8.5, Total Bilirubin 0.3, AST 26 D, ALT 18, Alkaline Phosphatase 86, C-Reactive Protein 5.7 H, Total Protein 5.9 L, Albumin 3.0 L, Globulin 2.9, Albumin/Globulin Ratio 1.0 L, Procalcitonin 0.064 Result diagrams: 07/05/21 01:14 07/05/21 01:14 Orders (Tests/Meds): ED MEDICATIONS Generic Name Dose Route Start Last Admin Trade Name Freq PRN Reason Stop Dose Admin Sodium Chloride 1,000 mls @ 999
--- NOTE | 2021-07-05 06:18 | PC.NURSE ---
johny notified that pt is ready to be transported back to [facility]
--- NOTE | 2021-07-05 06:20 | PC.NURSE ---
called and spoke to Balbina [facility] to notified that pt would be returning
== END 2021-07-05 07:10 | disposition home or self-care (01) ==
PROVIDERS: Emergency Provider Emergency Medicine; PCP Emergency Medicine
DX: K57.92 Diverticulitis of intestine, part unspecified, without perforation or abscess without bleeding (principal); D64.9 Anemia, unspecified; I25.10 Atherosclerotic heart disease of native coronary artery without angina pectoris; I50.9 Heart failure, unspecified; K21.9 Gastro-esophageal reflux disease without esophagitis; I10 Essential (primary) hypertension; E78.5 Hyperlipidemia, unspecified; E11.9 Type 2 diabetes mellitus without complications; E03.9 Hypothyroidism, unspecified
CPT/HCPCS: 80053; 82272; 84145; 85025; 85651; 86140; 96365; 96375; 99283; G0328

== ENCOUNTER 2021-07-13 08:04 | Outpatient (CLI) | payer MEDICARE, OTHER, SELFPAY ==
[2021-07-13] VITALS (21 sets, daily range): BP systolic 102–152; BP diastolic 47–79; PULSE 78–87; RESP 16–18; TEMP 36.4–36.7; O2SAT 97–99; BMI 37.5
[2021-07-13 09:29] LABS: Hematocrit 22.9 % (37.0-47.0); Hemoglobin 7.2 g/dL (12.2-16.2)
--- NOTE | 2021-07-13 15:43 | PC.NURSE ---
1025 Initiation of transfusion of 1st unit of PRBC at this time. Vital signs stable. Resp easy/reg. IV patent. Patient educated regarding s/s transfusion reaction and verbalizes understanding of all instruction/will reinforce as needed. Lungs with a few scattered wheezes noted bilateral lower lobs anteriorly/no resp distress. 3-4+ pitting edema bilateral legsconsistent with pt baseline per report/ pt with hx anasarca. 1055 Patient tolerating blood well. VSS. Resp easy/reg. IV patent. Denies c/o other than being sleepy. Dozes at intervals. Skin warm/dry to touch. 1125 Tolerating blood well with no s/s transfusion reaction or problems noted. 1225 Continues to tolerate blood well with no s/s transfusion reaction or problems noted. Resp easy/reg. Pt dozes at intervals/awakens easily for assessment. VSS. IV patent. Voids per BSC. 1250 1st unit PRBC complete at this time. Patient has tolerated very well with no problems and no s/s transfusion reaction noted. Lungs consistent with baseline assessment/no rales noted. No increase in edema 1256 Lasix 20mg IV given at this time per MD order.
--- NOTE | 2021-07-13 16:16 | PC.NURSE ---
1317 Initiation of transfusion of 2nd unit PRBC at this time. Reinforced teaching/reviewed s/s transfusion reaction with patient who verbalizes understanding of all instruction/ will reinforce as needed. Lungs remain consistent with baseline assessment. VSS. IV patent. Edema consistent with baseline. Voids per BSC. 1347 Tolerating blood well with no problems noted. 1417 Patient eating lunch and tolerating well. VSS. Resp easy/reg. IV patent. Denies complaints. No s/s transfusion reaction or problems. 1517 Continues to tolerate blood well with no s/s transfusion reaction. Denies c/o. VSS. No distress noted. 1550 2nd unit PRBC complete at this time. Patient tolerated well with no problems/no s/s transfusion reaction. Patient talking/laughing with staff. Edema/lung sounds remain consistent with baseline assessments. 1552 Lasix 20mg IV given per MD order.
[2021-07-13 17:02] LABS: Hematocrit 31.2 % (37.0-47.0)
[2021-07-13 17:10] LABS: Hemoglobin 9.9 g/dL (12.2-16.2)
== END 2021-07-13 16:55 | disposition home or self-care (01) ==
PROVIDERS: PCP Emergency Medicine; Visit Provider Emergency Medicine
DX: D64.9 Anemia, unspecified (principal); Z01.84 Encounter for antibody response examination
CPT/HCPCS: 36430; 85014; 85018; 86850; P9016

== ENCOUNTER 2021-07-18 09:46 | Emergency (ER) | payer MEDICARE, OTHER, SELFPAY ==
[2021-07-18 09:46] VITALS: BP 180/101; PULSE 76; RESP 14; TEMP 36.8; O2SAT 97; BMI 35.7
--- NOTE | 2021-07-18 09:55 | HMH.EDGENADL ---
ED Disposition Clinical Impression: Hypoglycemia, Acute urinary retention Disposition: Home, Self-Care Condition on Discharge: Good Instructions: DI for Hypoglycemia, How to Care for Your Dillard Catheter -- Female, DI for Urinary Retention in Women Additional Instructions: Decrease insulin dosage by one half: Humalog 7 units twice a day Lantus 14 units at night Keep Dillard catheter in until tomorrow morning, then remove Dillard catheter. Call Dr. Morrow tomorrow at noon to report on urine output and blood sugar readings. Referrals: Provider,Referral, [Primary Care Provider] - - Critical Care Critical Care Time: No Attestation: On 07/18/21, the high probability of a clinically significant, sudden or life threatening deterioration of the following system(s) required my full and direct attention, intervention and personal management. The time I documented below is in addition to time spent performing reported procedures but includes the following listed in this critical care notation. Medical Decision Making - Wojciech Inquiry Pt receiving controlled substance: No Vital Signs: 07/18/21 09:46 07/18/21 10:53 07/18/21 11:31 Temperature 98.3 F Temperature Source Oral Pulse Rate 60 56 L Pulse Rate [Right Radial] 76 Respiratory Rate 14 12 16 Blood Pressure 158/69 H 152/53 H Blood Pressure [Right Arm] 180/101 H Blood Pressure Mean [Right Arm] 127 Blood Pressure Source Automatic Cuff Automatic Cuff Blood Pressure Source [Right Arm] Automatic Cuff Blood Pressure Position Sitting Sitting Blood Pressure Position [Right Arm] Sitting 02 Sat by Pulse Oximetry 97 98 98 Oxygen Delivery Method Room Air Room Air Room Air 07/18/21 14:01 Temperature 98.5 F Temperature Source Oral Pulse Rate 80 Pulse Rate [Right Radial] Respiratory Rate 16 Blood Pressure 120/74 Blood Pressure [Right Arm] Blood Pressure Mean [Right Arm] Blood Pressure Source Automatic Cuff Blood Pressure Source [Right Arm] Blood Pressure Position Sitting Blood Pressure Position [Right Arm] 02 Sat by Pulse Oximetry Oxygen Delivery Method Room Air - Lab Data Lab Results 07/18/21 10:07: POC Glucose 118 H 07/18/21 10:15: Urine Color Straw, Urine Appearance Clear, Urine pH 7.5, Ur Specific [place] 1.010, Urine Protein Negative, Urine Glucose (UA) Negative, Urine Ketones Negative, Urine Blood Negative, Urine Nitrate Negative, Urine Bilirubin Negative, Urine Urobilinogen 0.2, Ur Leukocyte Esterase Negative, Urine RBC None, Urine WBC None, Ur Squamous Epith Cells None, Urine Bacteria None 07/18/21 10:15: WBC 5.2, RBC 3.58 L, Hgb 10.9 L, Hct 35.0 L, MCV 97.6, MCH 30.5, MCHC 31.2 L, RDW 14.7, Plt Count 363, MPV 7.8, Neut % (Auto) 58.7, Lymph % (Auto) 31.7, [place] % (Auto) 6.8, Eos % (Auto) 2.1, Baso % (Auto) 0.8, Neut # (Auto) 3.0, Lymph # (Auto) 1.6, [place] # (Auto) 0.4, Eos # (Auto) 0.1, Baso # (Auto) 0.0 07/18/21 10:15: Sodium 144, Potassium 5.2 H, Chloride 109 H, Carbon Dioxide 28, Anion Gap 12.2, BUN 20 H, Creatinine 1.00, Estimated Creat Clear 68, Estimated GFR 53 L, Est GFR ( Amer) 64, Glucose 108 H, Calcium 9.5, Total Bilirubin 0.5, AST 58 H, ALT 24, Alkaline Phosphatase 81, Troponin I < 0.01, Total Protein 6.8, Albumin 3.5, Globulin 3.3 H, Albumin/Globulin Ratio 1.1 07/18/21 12:00: POC Glucose 90 Result diagrams: 07/18/21 10:15 07/18/21 10:15 - Radiology Data #1 Image(s): Chest Image Reviewed: Yes I reviewed the patient's radiology image, Yes I have reviewed radiologist's interpretation PROCEDURE: XR CHEST PORTABLE CLINICAL HISTORY: weakness COMPARISON: CR XR SHOULDER LT MIN 2V from 11/25/[address] ANGIO CHEST from 02/08/2021 CR XR CHEST PORTABLE from 04/14/2021 CR XR CHEST AP from 04/24/2021 CR XR CHEST PORTABLE from 07/02/2021 FINDINGS: Mild cardiomegaly without failure. Mild atelectatic change left midlung. The The lungs are clear without infiltrates, suspicious nodules, or pleural ef
--- NOTE | 2021-07-18 10:09 | XR_ITS ---
PROCEDURE: XR CHEST PORTABLE CLINICAL HISTORY: weakness COMPARISON: CR XR SHOULDER LT MIN 2V from 11/25/[address] ANGIO CHEST from 02/08/2021 CR XR CHEST PORTABLE from 04/14/2021 CR XR CHEST AP from 04/24/2021 CR XR CHEST PORTABLE from 07/02/2021 FINDINGS: Mild cardiomegaly without failure. Mild atelectatic change left midlung. The The lungs are clear without infiltrates, suspicious nodules, or pleural effusions. There are old bilateral humeral neck fractures. IMPRESSION: Minimal left midlung atelectatic change with cardiomegaly Dictated by: Chris Jha MD 07/18/2021 11:23 Chris Jha MD in [facility] 07/18/2021 11:23
[2021-07-18 10:24] LABS: POC Glucose,Bedside 118 (70-110)
--- NOTE | 2021-07-18 10:25 | ECG_ITS ---
APPROVED REPORT Exam: Resting ECG HR:65 bpm ECG Measurements Heart Rate 65 AXES ND 204 P 40 QRSd 94 QRS -32 QT 434 T 7 QTc 451 Conclusion Sinus rhythm with marked sinus arrhythmia Left axis deviation Incomplete right bundle branch block Cannot rule out Anterior infarct, age undetermined Abnormal ECG Electronically signed by : John Rosado MD 07/19/2021 17:29:09
[2021-07-18 10:34] LABS: Basophils % 0.8 % (0.1-2.0); Eosinophils # 0.1 K/mm3 (0.0-0.4); Eosinophils % 2.1 % (0.1-12.0); Hemoglobin 10.9 g/dL (12.2-16.2); Lymphocytes # 1.6 K/mm3 (0.7-4.5); Lymphocytes % 31.7 % (10-50); Mean Corpuscular HGB Conc 31.2 g/dL (31.8-35.4); Mean Corpuscular Hemoglobin 30.5 pg (27.0-31.2); Mean Corpuscular Volume 97.6 fl (81-99); Mean Platelet Volume 7.8 fl (7.4-10.4); Monocytes # 0.4 K/mm3 (0.1-1.0); Monocytes % 6.8 % (1.7-9.3); Neutrophils % 58.7 % (37.0-80.0); Platelet Count 363 K/mm3 (142-424); Red Blood Count 3.58 M/mm3 (4.20-5.40); Red Cell Distribution Width 14.7 % (11.5-17.5); White Blood Count 5.2 K/mm3 (4.8-10.8)
[2021-07-18 10:37] LABS: Chloride 109 mmol/L (98-107); Potassium 5.2 mmoL/L (3.5-5.1); Sodium 144 mmol/L (136-145)
[2021-07-18 10:40] LABS: Alanine Aminotransferase 24 U/L (12-78); Albumin Level 3.5 g/dl (3.5-5.0); Albumin/Globulin Ratio 1.1 (1.1-1.8); Alkaline Phosphatase 81 U/L (38-126); Anion Gap 12.2 mEq/L (5-15); Aspartate Amino Transferase 58 U/L (14-36); Bilirubin,Total 0.5 mg/dl (0.2-1.3); Blood Urea Nitrogen 20 mg/dl (7-17); Carbon Dioxide 28 mmol/L (22.0-30.0); Creatinine Clearance Estimated 68 mL/min (50-200); Estimated Glomerular Filt Rate 53 ml/min (>60); GFR (African American) 64 ML/MIN (>60); Globulin 3.3 g/dL (1.3-3.2); Total Protein,Serum 6.8 g/dl (6.3-8.2)
[2021-07-18 10:41] LABS: Calcium 9.5 mg/dl (8.4-10.2); Glucose 108 mg/dl (74-100)
[2021-07-18 10:46] LABS: Microscopic, Urine URINE MICROSCOPIC (MICROSCOPIC)
[2021-07-18 10:48] LABS: Appearance,Urine CLEAR (Clear); Bilirubin,Urine Negative (Negative); Blood, Urine Negative (Negative); Color,Urine STRAW (Yellow); Glucose,Urine (UA) Negative (Negative); Ketones,Urine Negative (Negative); Leukocyte Esterase,Urine Negative (Negative); Nitrate,Urine Negative (Negative); PH,Urine 7.5 (5.0-8.5); Protein,Urine Negative (Negative); Urobilinogen,Urine 0.2 EU/dl (0.2)
[2021-07-18 10:53] VITALS: BP 158/69; PULSE 60; RESP 12; O2SAT 98
[2021-07-18 10:53] LABS: Troponin I < 0.01 ng/ml (0.00-0.034)
--- NOTE | 2021-07-18 10:53 | PC.NURSE ---
Called dietary requesting a tray for pt.
[2021-07-18 11:31] VITALS: BP 152/53; PULSE 56; RESP 16; O2SAT 98
[2021-07-18 12:06] LABS: POC Glucose,Bedside 90 (70-110)
--- NOTE | 2021-07-18 12:10 | PC.NURSE ---
speaking with Dr. Morrow
--- NOTE | 2021-07-18 12:14 | PC.NURSE ---
F/C output of 1900 at this time.
--- NOTE | 2021-07-18 12:14 | PC.NURSE ---
PT REFUSING LUNCH TRAY OR TO EAT ANYTHING WHEN OFFERED
--- NOTE | 2021-07-18 13:22 | PC.NURSE ---
Notified Adan of transfer. Updated son on POC and findings from ER visit.
[2021-07-18 14:01] VITALS: BP 120/74; PULSE 80; RESP 16; TEMP 36.9; O2SAT 98
== END 2021-07-18 14:04 | disposition home or self-care (01) ==
PROVIDERS: Emergency Provider Emergency Medicine
DX: E11.649 Type 2 diabetes mellitus with hypoglycemia without coma (principal); R33.9 Retention of urine, unspecified; Z79.4 Long term (current) use of insulin; I11.0 Hypertensive heart disease with heart failure; I50.9 Heart failure, unspecified
CPT/HCPCS: 71045; 80053; 81001; 82962; 84484; 85025; 93005; 99284

== ENCOUNTER 2021-07-18 19:35 | Inpatient (IN) | payer MEDICARE, OTHER, SELFPAY ==
--- NOTE | 2021-07-18 19:39 | HMH.EDGENADL ---
ED Disposition Condition on Discharge: Serious - Critical Care Critical Care Time: No <MandoTuan daily - Last Filed: 07/18/21 20:01> <Jewel Morrow - Last Filed: 07/18/21 21:41> Clinical Impression: Acute delirium AMS (altered mental status) Qualifiers: Altered mental status type: disorientation Qualified Code(s): R41.0 - Disorientation, unspecified Disposition: Admitted as Observation Referrals: Jewel Morrow MD [Emergency Provider] - Attestation: On 07/18/21, the high probability of a clinically significant, sudden or life threatening deterioration of the following system(s) required my full and direct attention, intervention and personal management. The time I documented below is in addition to time spent performing reported procedures but includes the following listed in this critical care notation. Medical Decision Making - Wojciech Inquiry Pt receiving controlled substance: No <MandoTuan daily - Last Filed: 07/18/21 20:01> - Lab Data Lab results reviewed: Yes: I reviewed the patient's lab results. Result diagrams: 07/18/21 20:18 07/18/21 20:18 - Physician Consults Physician Consulted: te Reason -: Admission <Jewel Morrow - Last Filed: 07/18/21 21:41> Vital Signs: 07/18/21 19:41 07/18/21 20:34 07/18/21 21:09 Temperature 98.9 F Temperature Source Rectal Pulse Rate 72 75 Pulse Rate [Apical] 73 Respiratory Rate 16 Blood Pressure 186/85 H 198/89 H Blood Pressure [Right Arm] 197/65 H Blood Pressure Mean [Right Arm] 109 Blood Pressure Source Automatic Cuff Automatic Cuff Blood Pressure Source [Right Arm] Automatic Cuff Blood Pressure Position Sitting Sitting Blood Pressure Position [Right Arm] Supine 02 Sat by Pulse Oximetry 97 97 98 Oxygen Delivery Method Room Air Room Air Room Air - Lab Data Lab Results 07/18/21 19:42: POC Glucose 77 07/18/21 20:18: WBC 5.1, RBC 3.49 L, Hgb 10.4 L, Hct 33.6 L, MCV 96.5, MCH 29.8, MCHC 30.8 L, RDW 14.7, Plt Count 419, MPV 7.2 L, Neut % (Auto) 55.0, Lymph % (Auto) 34.5, [place] % (Auto) 7.0, Eos % (Auto) 2.7, Baso % (Auto) 0.8, Neut # (Auto) 2.8, Lymph # (Auto) 1.7, [place] # (Auto) 0.4, Eos # (Auto) 0.1, Baso # (Auto) 0.0 07/18/21 20:18: Sodium 145, Potassium 4.0 D, Chloride 110 H, Carbon Dioxide 30, Anion Gap 9.0, BUN 20 H, Creatinine 1.00, Estimated Creat Clear 60, Estimated GFR 53 L, Est GFR ( Amer) 64, Glucose 73 L D, Calcium 9.6 07/18/21 20:18: Lactate 1.1 07/18/21 20:18: C-Reactive Protein 0.7, Procalcitonin 0.059, TSH 9.71 H, Thyroxine (T4) 20.5 H Orders (Tests/Meds): ED MEDICATIONS Discontinued Medications Generic Name Dose Route Start Last Admin Trade Name Benita PRN Reason Stop Dose Admin Dextrose 50 ml 07/18/21 19:48 07/18/21 20:24 Dextrose 50% 50ml Syringe (Crash Cart) IVP 07/18/21 19:49 50 ml ONCE ONE Administration ORDERS Category Date Time Status Erythrocyte Sedimentation Rate Stat Lab 07/18/21 20:18 Received Blood Culture Stat Micro 07/18/21 20:18 Received Medical Decision Narrative: Unable to perform stroke score due to lack of cooperation. 8:00 PM: At shift change, I have discussed the patient with the oncoming physician, who will assume care of the patient at this time. I have discussed all clinical information including history, physical and diagnostic study results. Preliminary diagnoses based on information available at this point have been recorded by me. (Tuan Gregg) General Adult HPI <Tuan Gregg - Last Filed: 07/18/21 20:01> <Jewel Morrow - Last Filed: 07/18/21 21:41> - General Stated complaint: AMS Time Seen by Provider: 07/18/21 19:35 - History of Present Illness HPI narrative: Brought in by ambulance from residential. The patient was seen by me in this emergency department this morning for an apparent hypoglycemic episode. senior care staff reports that since her return she is confused. The patient at this time
[2021-07-18 19:41] VITALS: BP 197/65; PULSE 73; RESP 16; TEMP 37.2; O2SAT 97; BMI 32.5
[2021-07-18 19:45] VITALS: BMI 32.5
--- NOTE | 2021-07-18 19:48 | CT_ITS ---
PROCEDURE INFORMATION: Exam: CT Head Without Contrast Exam date and time: 07/18/2021 7:48 PM Age: 80 years old Clinical indication: Altered mental status/memory loss; Additional info: AMS TECHNIQUE: Imaging protocol: Computed tomography of the head without contrast. Radiation optimization: All CT scans at this facility use at least one of these dose optimization techniques: automated exposure control; mA and/or kV adjustment per patient size (includes targeted exams where dose is matched to clinical indication); or iterative reconstruction. COMPARISON: CT HEAD/BRAIN WO CON 07/02/2021 2:20 PM FINDINGS: Brain: There is moderate central and peripheral cerebral atrophy. Ill-defined areas of decreased attenuation are identified within lateral periventricular white matter, compatible with chronic deep white matter ischemic change. No evidence of acute intracranial bleed. There is no evidence of focal cerebral edema. Cerebral ventricles: There is mild atrophy related global ventriculomegaly. No evidence of midline shift. Paranasal sinuses: Visualized sinuses are unremarkable. No fluid levels. Mastoid air cells: Visualized mastoid air cells are well aerated. Vasculature: Intraranial artery density is normal. Bones/joints: Unremarkable. No acute fracture. Soft tissues: Unremarkable. IMPRESSION: There is moderate central and peripheral cerebral atrophy with mild global ventriculomegaly and changes of chronic deep white matter ischemia. No evidence of acute intracranial bleed or focal cerebral edema.
[2021-07-18 19:51] LABS: POC Glucose,Bedside 77 (70-110)
--- NOTE | 2021-07-18 19:54 | PC.NURSE ---
PT IS UNABLE TO FOLLOW COMMANDS EFFECTIVELY TO COMPLETE NIHSS. AT BEDSIDE AND ALSO ATTEMPTED TO COMPLETE NIHSS.
--- NOTE | 2021-07-18 19:55 | PC.NURSE ---
Pt to rad.
--- NOTE | 2021-07-18 20:02 | PC.NURSE ---
Pt returned from rad.
--- NOTE | 2021-07-18 20:21 | ECG_ITS ---
APPROVED REPORT Exam: Resting ECG HR:75 bpm ECG Measurements Heart Rate 75 AXES QRSd 102 QRS -36 QT 434 T 16 QTc 484 Conclusion Accelerated Junctional rhythm Left axis deviation Incomplete right bundle branch block Abnormal ECG Electronically signed by : John Rosado MD 07/19/2021 17:27:45
[2021-07-18 20:29] LABS: Basophils % 0.8 % (0.1-2.0); Eosinophils # 0.1 K/mm3 (0.0-0.4); Eosinophils % 2.7 % (0.1-12.0); Hematocrit 33.6 % (37.0-47.0); Hemoglobin 10.4 g/dL (12.2-16.2); Lymphocytes # 1.7 K/mm3 (0.7-4.5); Lymphocytes % 34.5 % (10-50); Mean Corpuscular HGB Conc 30.8 g/dL (31.8-35.4); Mean Corpuscular Hemoglobin 29.8 pg (27.0-31.2); Mean Corpuscular Volume 96.5 fl (81-99); Mean Platelet Volume 7.2 fl (7.4-10.4); Monocytes # 0.4 K/mm3 (0.1-1.0); Neutrophils # 2.8 K/mm3 (1.8-7.8); Platelet Count 419 K/mm3 (142-424); Red Blood Count 3.49 M/mm3 (4.20-5.40); Red Cell Distribution Width 14.7 % (11.5-17.5); White Blood Count 5.1 K/mm3 (4.8-10.8)
[2021-07-18 20:34] VITALS: BP 186/85; PULSE 72; O2SAT 97
[2021-07-18 20:35] LABS: Blood Urea Nitrogen 20 mg/dl (7-17); Calcium 9.6 mg/dl (8.4-10.2); Carbon Dioxide 30 mmol/L (22.0-30.0); Chloride 110 mmol/L (98-107); Creatinine Clearance Estimated 60 mL/min (50-200); Estimated Glomerular Filt Rate 53 ml/min (>60); GFR (African American) 64 ML/MIN (>60); Glucose 73 mg/dl (74-100); Sodium 145 mmol/L (136-145)
[2021-07-18 20:41] LABS: Lactic Acid 1.1 mmol/L (0.7-2.1)
[2021-07-18 20:46] LABS: C-Reactive Protein 0.7 mg/L (0-4)
[2021-07-18 20:59] LABS: Procalcitonin 0.059 ng/mL (0.0-2.0); T4 (Thyroxine) 20.5 ug/dl (5.53-11.0)
[2021-07-18 21:09] VITALS: BP 198/89; PULSE 75; O2SAT 98
[2021-07-18 21:12] LABS: Thyroid Stimulating Hormone 9.71 uIU/mL (0.465-4.68)
--- NOTE | 2021-07-18 21:35 | PC.NURSE ---
Paged Dr. Mcghee, on-call for Dr. Cotter.
--- NOTE | 2021-07-18 21:42 | PC.NURSE ---
Dr. Morrow s/w Dr. Mcghee, agrees to admit. House notified for bed assignment.
[2021-07-18 21:52] LABS: Coronavirus 19, PCR Not Detected (NotDetected); Influenza A, PCR Not Detected (NotDetected); Influenza B, PCR Not Detected (NotDetected)
[2021-07-18 21:52] LABS: Erythrocyte Sedimentation Rate 74 mm/hr (0-30)
[2021-07-18 21:54] VITALS: BP 156/58; PULSE 74; RESP 18; TEMP 36.9; O2SAT 98; BMI 40.8
--- NOTE | 2021-07-18 21:58 | PC.NURSE ---
updated family on POC and hospital admission
[2021-07-18 22:08] LABS: Troponin I < 0.01 ng/ml (0.00-0.034)
[2021-07-18 22:24] LABS: POC Glucose,Bedside 144 (70-110)
[2021-07-18 22:25] VITALS: BP 188/85; PULSE 77; RESP 20; TEMP 36.8; O2SAT 99
--- NOTE | 2021-07-18 22:27 | PC.WOUNDNOTE ---
Updated [facility] on admit
--- NOTE | 2021-07-18 22:29 | PC.NURSE ---
PT ARRIVED TO FLOOR VIA STRETCHER FROM ED W/STAFF AT [phone]
[2021-07-18 22:47] VITALS: PULSE 80
[2021-07-19] VITALS: BP 142/66; PULSE 67; PULSE 70; RESP 15; TEMP 36.8; O2SAT 96
[2021-07-19 04:00] VITALS: PULSE 80
[2021-07-19 04:30] VITALS: BP 164/67; PULSE 77; RESP 16; TEMP 36.8; O2SAT 95
[2021-07-19 05:01] VITALS: BMI 40.8
--- NOTE | 2021-07-19 05:19 | PC.NURSE ---
PT IS ABLE TO SAY HER NAME, BUT ANSWER NO OTHER QUESTIONS. PT DOES NOT FOLLOW COMMANDS WELL. TOLERATING 2LNC WELL. PT HAS SLEPT SINCE ARRIVAL TO FLOOR. F/C PRESENT DRAINING DARK YELLOW URINE. NO C/O THUS FAR. FSBS 124 THIS AM. VSS WILL CONTINUE TO MONITOR.
[2021-07-19 05:29] LABS: POC Glucose,Bedside 124 (70-110)
[2021-07-19 06:00] LABS: Basophils % 0.5 % (0.1-2.0); Eosinophils # 0.1 K/mm3 (0.0-0.4); Eosinophils % 2.6 % (0.1-12.0); Hematocrit 31.3 % (37.0-47.0); Hemoglobin 9.6 g/dL (12.2-16.2); Lymphocytes # 1.7 K/mm3 (0.7-4.5); Lymphocytes % 34.6 % (10-50); Mean Corpuscular HGB Conc 30.6 g/dL (31.8-35.4); Mean Corpuscular Hemoglobin 29.9 pg (27.0-31.2); Mean Corpuscular Volume 97.8 fl (81-99); Mean Platelet Volume 7.3 fl (7.4-10.4); Monocytes # 0.4 K/mm3 (0.1-1.0); Monocytes % 8.1 % (1.7-9.3); Neutrophils # 2.7 K/mm3 (1.8-7.8); Neutrophils % 54.3 % (37.0-80.0); Platelet Count 379 K/mm3 (142-424); Red Cell Distribution Width 14.8 % (11.5-17.5); White Blood Count 4.9 K/mm3 (4.8-10.8)
[2021-07-19 06:03] LABS: Chloride 110 mmol/L (98-107); Sodium 145 mmol/L (136-145)
[2021-07-19 06:04] LABS: Potassium 3.9 mmoL/L (3.5-5.1)
[2021-07-19 06:06] LABS: Anion Gap 10.9 mEq/L (5-15); Blood Urea Nitrogen 18 mg/dl (7-17); Carbon Dioxide 28 mmol/L (22.0-30.0); Creatinine Clearance Estimated 69 mL/min (50-200); Estimated Glomerular Filt Rate 48 ml/min (>60); GFR (African American) 58 ML/MIN (>60)
[2021-07-19 06:07] LABS: Glucose 116 mg/dl (74-100); Magnesium 1.7 mg/dl (1.6-2.3)
--- NOTE | 2021-07-19 07:26 | P.CONPHA_ITS ---
[facility] Pharmacy VTE Monitoring - Patient Demographics Admission date: 07/18/21 Report Date: 07/19/21 Time: 07:26 Allergies/Adverse Reactions: Patient Allergies Iodinated Contrast Media Allergy (Intermediate, Verified 07/13/21 14:41) naproxen [NAPROXEN] Allergy (Mild, Verified 07/13/21 14:41) Height: 1.63 m Weight: 108.409 kg Patient Problems: Current Active Problems Altered mental status (Acute) Acute delirium (Acute) - VTE Risk Labs: VTE Related Lab Results Hgb 9.6 g/dL (12.2-16.2) L 07/19/21 05:20 Hct 31.3 % (37.0-47.0) L 07/19/21 05:20 Plt Count 379 K/mm3 (142-424) 07/19/21 05:20 BUN 18 mg/dl (7-17) H 07/19/21 05:20 Creatinine 1.10 mg/dl (0.52-1.04) H 07/19/21 05:20 Estimated Creat Clear 69 mL/min (50-200) 07/19/21 05:20 - Prophylaxis VTE Prophylaxis Ordered?: Yes Types of VTE Prophylaxis: TEDS Knee High Location of Applied Device: Bilateral Lower Extremeties
[2021-07-19 07:27] LABS: Troponin I < 0.01 ng/ml (0.00-0.034)
--- NOTE | 2021-07-19 07:50 | SW/DCPLANNER ---
Addendum entered by Kimber Browning 07/24/21 09:55: I have notified Shikha ramirez/ [facility] that this patient is medically stable for discharge. COVID swab has been ordered. Addendum entered by Kimber Browning 07/21/21 10:40: [facility]. Original Note: This patient currently resides at [facility]. I spoke with Shikha from [facility] this AM to confirm that patient is private pay at their facility. I will continue to follow up with Shikha/patients family until patient is medically stable for discharge.
[2021-07-19 08:00] VITALS: BP 164/75; PULSE 76; PULSE 80; RESP 16; TEMP 36.9; O2SAT 96
--- NOTE | 2021-07-19 08:20 | HMH.HP ---
*Admission Date: 07/18/21 <Edie Sparks - 07/19/21 08:22> *Chief complaint: Altered mental status <Edie Sparks - 07/19/21 08:22> *History of present illness: Ms. Moctezuma is an 80-year-old female with a history of type 2 diabetes mellitus, hypothyroidism, hyperlipidemia, intermittent atrial fib, DVT, hypertension, GERD, depression, ASCVD, and previous CVA who has been residing at [facility] and was transported to [facility] emergency room for evaluation for her altered mental status. She was initially seen in the emergency room In the a.m. of 07/18/2021 with hypoglycemia..At that time patient stated that she did not feel well. Blood sugar in the emergency room was 118. This was after receiving orange juice in the nursing facility. [facility] the [facility]. She then returned in the p.m. of 07/18/2021 to the ER after [facility] staff noted confusion. At this time her mental status in the ER appeared markedly changed. She was unable to provide any information herself. Blood sugars reportedly had been normal since the confusion began.The patient's son did call the nursing staff in the ER before the patient arrived and reported that he had spoken with her on the phone and felt she had been confused which was similar to when she had her previous stroke. In the ER she did not answer questions appropriately but repeatedly said yes. She would not open her eyes. Previous urinalysis was negative. CBC revealed her chronic anemia. Blood chemistries showed a BUN of 20 and creatinine of 1 with normal electrolytes. Troponin I was negative. TSH was elevated at 9.71. Head CT revealed the following: IMPRESSION: There is moderate central and peripheral cerebral atrophy with mild global ventriculomegaly and changes of chronic deep white matter ischemia. No evidence of acute intracranial bleed or focal cerebral edema. Chest x-ray revealed the following: IMPRESSION: There is moderate central and peripheral cerebral atrophy with mild global ventriculomegaly and changes of chronic deep white matter ischemia. No evidence of acute intracranial bleed or focal cerebral edema. She was then admitted for further evaluation and treatment. <Edie Sparks - 07/19/21 08:52> [facility] History Medical History: Reports:: Atherosclerotic Heart Disease, Congestive Heart Failure, Congenital Heart Disease, Coronary Artery Disease, Cerebrovascular Accident, Deep Vein Thrombosis, Depression, Diabetes Mellitus Type 2, Gastroesophageal Reflux Disease(GERD), Hyperlipidemia, Hypertension, Urinary Tract Infection Denies:: Cancer, Diabetes Mellitus Type 1, Internal Pacemaker, MRSA, Seizures <ClareEdie 07/19/21 08:22> *Have you ever received a pneumonia vaccine?: Yes <SparksEdie - 07/19/21 08:22> *Have you received a flu vaccine this season?: Yes <Sparks,Edie 07/19/21 08:22> Other Medical History: Reports: Anemia, Arthritis, Hypothyroidism, Thyroid Disease <SparksEdie 07/19/21 08:22> Other Surgeries: Yes: Appendectomy, Cardiac Catheterization, Cholecystectomy, Colonoscopy, Coronary Stent, EGD, Hernia Repair, Hysterectomy-Total, Skin Cancer Excision, Other. No: Pacemaker <SparksEdie 07/19/21 08:22> Amputation: No <SparksEdie 07/19/21 08:22> Fractures: Yes (L humerus, R humerus) <SparksEdie 07/19/21 08:22> - *Social History Smoking Status: Never smoker <SparksEdie 07/19/21 08:22> Alcohol Intake: never <SparksEdie 07/19/21 08:22> Alcohol Intake Frequency:: other <ClareEdie 07/19/21 08:22> Substance Use Type: denies use <SparksEdie 07/19/21 08:22> *Occupational Status:: retired <Edie Sparks 07/19/21 08:22> Housing: [facility] <Edie Sparks 07/19/21 08:22> Household Members: other <Edie Sparks 07/19/21 08:22> *Travel in the last 8 weeks: None <Edie Sparks 07/19/21 08:22> - Psychiatric History Pschychiatric History:: Reports::
--- NOTE | 2021-07-19 09:32 | HMH.PHAINT ---
MEDICATION RECONCILIATION COMPLETE USING [facility]
[2021-07-19 11:37] LABS: POC Glucose,Bedside 126 (70-110)
[2021-07-19 14:56] VITALS: BMI 40.6
--- NOTE | 2021-07-19 15:02 | PC.NURSE ---
PT IS RESTING IN BED. NO COMPLAINTS OF DISCOMFORT. PT HAS NOT BEEN ORIENTED AT ALL T/O THE SHIFT. PT HAS REPEATED OVER AND OVER AGAIN GET ME UP HOWEVER PT WILL NOT FOLLOW ANY SIMPLE COMMANDS. PT HAS BEEN TURNED AND REPOSITIONED IN BED. LUNG SOUNDS DIMINISHED. ABDOMEN SOFT/NON TENDER WITH ACTIVE BOWEL SOUNDS. WILL CONTINUE TO MONITOR.
[2021-07-19 16:00] VITALS: BP 173/77; PULSE 79; RESP 16; TEMP 37.1; O2SAT 93
[2021-07-19 16:23] LABS: POC Glucose,Bedside 160 (70-110)
[2021-07-19 20:00] VITALS: BP 169/75; PULSE 80; PULSE 88; RESP 21; TEMP 37.4; O2SAT 96
[2021-07-19 22:13] LABS: POC Glucose,Bedside 203 (70-110)
[2021-07-20] VITALS: BP 195/80; PULSE 77; PULSE 80; RESP 15; TEMP 36.8; O2SAT 94
[2021-07-20 03:26] LABS: POC Glucose,Bedside 161 (70-110)
[2021-07-20 04:00] VITALS: BP 176/70; PULSE 70; PULSE 75; RESP 14; TEMP 36.7; O2SAT 97
[2021-07-20 05:00] VITALS: BMI 39.9
--- NOTE | 2021-07-20 05:45 | PC.NURSE ---
pt has rested t/o most of shift, has not been oriented t/o shift, remains on room air, O2 sats 94-97%, cervantes draining at bedside, 500 mL out so far this shift
[2021-07-20 08:00] VITALS: BP 158/68; PULSE 80; PULSE 81; RESP 19; TEMP 37.1; O2SAT 98
--- NOTE | 2021-07-20 08:39 | MR_ITS ---
PROCEDURE: MR HEAD/BRAIN WO CON CLINICAL INDICATION: CVA COMPARISON: MR MR HEAD/BRAIN WO CON from 03/31/[address] HEAD/BRAIN WO CON from 07/18/2021 TECHNIQUE: Routine multiplanar multi echo sequences are performed without gadolinium enhancement. FINDINGS: Considerable motion artifact somewhat obscures fine detail. No midline shift, mass effect, intracranial hemorrhage, or hydrocephalus is evident. Small focal area restricted diffusion in the left cerebellar hemisphere is no longer apparent. No evidence of acute infarction. The cerebellopontine angles, cerebellum, and brainstem have an unremarkable appearance. Scattered periventricular and subcortical T2 white matter hyperintensities are present consistent with ischemic gliotic change from microvascular disease. The pituitary, optic chiasm carpus callosum, and craniocervical junction have an unremarkable appearance. No mastoid effusion or sinus air-fluid level. IMPRESSION: No acute intracranial findings. Dictated by: Chris Jha MD 07/20/2021 13:17 Chris Jha MD in [facility] 07/20/2021 13:17
--- NOTE | 2021-07-20 08:57 | HMH.ACPN2 ---
<Meg Lopez - Last Filed: 07/20/21 08:57> Internal Medicine - PN: Subj *Date: 07/20/21 *Time: 08:57 Interval history: Nursing states patient is still not alert. She has been mumbling this morning but it is unintelligible. Nursing states she has been calm and not combative. Exam Vital signs and Labs for Last 24 Hours: Temp Pulse Resp BP Pulse Ox 98.0 F 75 14 176/70 H 97 07/20/21 04:00 07/20/21 04:00 07/20/21 04:00 07/20/21 04:00 07/20/21 04:00 Laboratory Results - last 24 hr 07/19/21 09:29: POC Glucose 126 H 07/19/21 15:23: POC Glucose 160 H 07/19/21 21:57: POC Glucose 203 H 07/20/21 03:19: POC Glucose 161 H I & O for Last 24 hours: Intake & Output 07/17/21 07/18/21 07/19/21 07/20/21 11:59 11:59 11:59 11:59 Intake Total 60 / 60 960 / 960 Output Total 1500 / 1500 3350 / 3350 Balance -1440 / -1440 -2390 / -2390 Weight 239 lb 234 lb 4.8 oz - Constitutional no acute distress - *Routine Respiratory Exam Present: CTA bilaterally - *Routine Cardiovascular Exam Present: RRR - *Routine Abdominal Exam Present: soft, normoactive bowel sounds. Absent: tenderness - *Routine Extremities Exam Present: edema (trace bilateral LE edema). Absent: cyanosis, clubbing - *Routine Skin Exam Present: warm. Absent: rash - *Routine Neurological Exam Present: altered mental status Assessment and Plan (1) Altered mental status Status: Acute Qualifiers: Altered mental status type: disorientation Qualified Code(s): R41.0 - Disorientation, unspecified Category: Medical Code(s): R41.82 - Altered mental status, unspecified (2) Lower extremity edema Status: Chronic Category: Medical Code(s): R60.0 - Localized edema (3) Anemia Status: Chronic Qualifiers: Anemia type: unspecified type Qualified Code(s): D64.9 - Anemia, unspecified Category: Medical Code(s): D64.9 - Anemia, unspecified (4) CAD (coronary artery disease) Status: Chronic Qualifiers: Coronary Disease-Associated Artery/Lesion type: [place] artery [place] vs. transplanted heart: [place] heart Associated angina: without angina Qualified Code(s): I25.10 - Atherosclerotic heart disease of [place] coronary artery without angina pectoris Category: Medical Code(s): I25.10 - Atherosclerotic heart disease of [place] coronary artery without angina pectoris (5) History of CVA (cerebrovascular accident) Status: Chronic Category: Medical Code(s): Z86.73 - Personal history of transient ischemic attack (TIA), and cerebral infarction without residual deficits (6) Hypertension Status: Chronic Qualifiers: Hypertension type: essential hypertension Category: Medical Code(s): I10 - Essential (primary) hypertension (7) Hypothyroid Status: Chronic Qualifiers: Hypothyroidism type: unspecified Qualified Code(s): E03.9 - Hypothyroidism, unspecified Category: Medical Code(s): E03.9 - Hypothyroidism, unspecified (8) Renal insufficiency Status: Chronic Category: Medical Code(s): N28.9 - Disorder of kidney and ureter, unspecified (9) Diabetes mellitus Status: Chronic Qualifiers: Diabetes mellitus type: type 1 Diabetes mellitus complication status: with other specified complication Qualified Code(s): E10.69 - Type 1 diabetes mellitus with other specified complication Category: Medical Code(s): E11.9 - Type 2 diabetes mellitus without complications - Assessment and plan all Dx Assessment and Plan for all problems:: We will get a urinalysis as well as an MRI of the brain to rule out another stroke. <Harry Cotter - Last Filed: 07/20/21 13:43> Internal Medicine - PN: Subj *Date: 07/20/21 *Time: 13:42 Exam Vital signs and Labs for Last 24 Hours: Temp Pulse Resp BP Pulse Ox 98.8 F 81 19 158/68 H 98 07/20/21 08:00 07/20/21 08:00 07/20/21 08:00 07/20/21 08:00 07/20/21 08:00 Laboratory Results -
[2021-07-20 13:02] LABS: Microscopic, Urine URINE MICROSCOPIC (MICROSCOPIC)
[2021-07-20 13:04] LABS: Appearance,Urine CLEAR (Clear); Bilirubin,Urine Negative (Negative); Blood, Urine 2+ (Negative); Color,Urine YELLOW (Yellow); Glucose,Urine (UA) Negative (Negative); Ketones,Urine Negative (Negative); Leukocyte Esterase,Urine 1+ (Negative); Nitrate,Urine POSITIVE (Negative); Protein,Urine TRACE (Negative); Urobilinogen,Urine 0.2 EU/dl (0.2)
[2021-07-20 16:00] VITALS: BP 147/54; PULSE 60; PULSE 80; RESP 16; TEMP 36.6; O2SAT 94
--- NOTE | 2021-07-20 17:04 | PC.NURSE ---
PT IS RESTING IN BED. PT HAS NOT BEEN ORIENTED AT ALL T/O THE SHIFT. PT HAS BEEN REPEATING THE SAME WORDS OVER AND OVER. PT IS RESPONSIVE TO PAIN. WILL YELL OUT WHEN TURNING/REPOSITIONING. O2 SATURATION HAS MAINTAINED 92-95% ON ROOM AIR. CRAIG DRAINING YELLOW/CLOUDY/SEDIMENT URINE WHICH WAS COLLECTED AND SENT TO LAB. SURAJ NARAYAN NOTIFIED OF RESULTS. LUNG SOUNDS CLEAR. ABDOMEN SOFT/NON TENDER WITH ACTIVE BOWEL SOUNDS. PT IS STILL NOT ALERT /AWAKE ENOUGH TO EAT OR DRINK. VSS. WILL CONTINUE TO MONITOR.
[2021-07-20 19:51] VITALS: BP 165/83; PULSE 84; RESP 18; TEMP 37.1; O2SAT 97
[2021-07-20 20:00] VITALS: PULSE 90; O2SAT 98
[2021-07-21] VITALS (10 sets, daily range): BP systolic 147–176; BP diastolic 58–72; PULSE 73–90; RESP 10–17; TEMP 37–37.3; O2SAT 97–100; BMI 40.2
--- NOTE | 2021-07-21 06:55 | PC.NURSE ---
Pt is alert. She is able to voice her name, birthday and that she is in the hospital. Speech has been mostly clear but is mumbled at times. She continuously calls out saying please help me . She is able to voice that she needs repositioned. has been q2 turned, mouth care has been provided. Pt is NPO and is unable to take PO meds at this time. At 0600, O2 sats were 85% while she was in deep sleep. 1 l nc was applied. Pt currently at 98%. VSS. CB in reach. Will continue to monitor.
--- NOTE | 2021-07-21 08:16 | HMH.ACPN2 ---
<Meg Lopez - Last Filed: 07/21/21 08:16> Internal Medicine - PN: Subj *Date: 07/21/21 *Time: 08:16 Interval history: Patient is sleeping this morning and resting well. According to nursing notes she was able to tell them who she was and where she was throughout her night. Dr. Cotter feels she has had a stroke that did not show up on the MRI due to lack of contrast and motion artifact. Her second urinalysis did come back abnormal therefore she was started on antibiotics. Her son is with her this morning. Exam Vital signs and Labs for Last 24 Hours: Temp Pulse Resp BP Pulse Ox 99.1 F 85 14 175/67 H 97 07/21/21 03:26 07/21/21 03:26 07/21/21 03:26 07/21/21 03:26 07/21/21 03:26 Laboratory Results - last 24 hr 07/20/21 12:55: Urine Color Yellow, Urine Appearance Clear, Urine pH 8.0, Ur Specific [place] 1.010, Urine Protein Trace, Urine Glucose (UA) Negative, Urine Ketones Negative, Urine Blood 2+, Urine Nitrate Positive, Urine Bilirubin Negative, Urine Urobilinogen 0.2, Ur Leukocyte Esterase 1+ A I & O for Last 24 hours: Intake & Output 07/18/21 07/19/21 07/20/21 07/21/21 11:59 11:59 11:59 11:59 Intake Total 60 / 60 960 / 960 1067 / 1067 Output Total 1500 / 1500 3350 / 3350 2500 / 2500 Balance -1440 / -1440 -2390 / -2390 -1433 / -1433 Weight 239 lb 234 lb 4.8 oz 235 lb 14.4 oz Microbiology Reports for the Last 24 Hours: Microbiology 07/19/21 12:55 Urine,Catheterized Urine Culture - Preliminary Gram Negative Rods 07/18/21 20:18 Blood Blood Culture - Preliminary NO GROWTH AFTER 48 HOURS 07/18/21 20:18 Blood Blood Culture - Preliminary NO GROWTH AFTER 48 HOURS - Constitutional no acute distress - *Routine Respiratory Exam Present: CTA bilaterally - *Routine Cardiovascular Exam Present: RRR - *Routine Abdominal Exam Present: soft, normoactive bowel sounds. Absent: tenderness - *Routine Extremities Exam Present: edema (Bilateral lower extremities). Absent: cyanosis, clubbing - *Routine Skin Exam Present: warm. Absent: rash - *Routine Neurological Exam sleeping Assessment and Plan (1) Altered mental status Status: Acute Qualifiers: Altered mental status type: disorientation Qualified Code(s): R41.0 - Disorientation, unspecified Category: Medical Code(s): R41.82 - Altered mental status, unspecified (2) Lower extremity edema Status: Chronic Category: Medical Code(s): R60.0 - Localized edema (3) Anemia Status: Chronic Qualifiers: Anemia type: unspecified type Qualified Code(s): D64.9 - Anemia, unspecified Category: Medical Code(s): D64.9 - Anemia, unspecified (4) CAD (coronary artery disease) Status: Chronic Qualifiers: Coronary Disease-Associated Artery/Lesion type: [place] artery [place] vs. transplanted heart: [place] heart Associated angina: without angina Qualified Code(s): I25.10 - Atherosclerotic heart disease of [place] coronary artery without angina pectoris Category: Medical Code(s): I25.10 - Atherosclerotic heart disease of [place] coronary artery without angina pectoris (5) History of CVA (cerebrovascular accident) Status: Chronic Category: Medical Code(s): Z86.73 - Personal history of transient ischemic attack (TIA), and cerebral infarction without residual deficits (6) Hypertension Status: Chronic Qualifiers: Hypertension type: essential hypertension Category: Medical Code(s): I10 - Essential (primary) hypertension (7) Hypothyroid Status: Chronic Qualifiers: Hypothyroidism type: unspecified Qualified Code(s): E03.9 - Hypothyroidism, unspecified Category: Medical Code(s): E03.9 - Hypothyroidism, unspecified (8) Renal insufficiency Status: Chronic Category: Medical Code(s): N28.9 - Disorder of kidney and ureter, unspecified (9) Diabetes mellitus
[2021-07-21 09:20] LABS: POC Glucose,Bedside 162 (70-110)
[2021-07-21 10:19] LABS: POC Glucose,Bedside 169 (70-110)
[2021-07-21 10:19] LABS: POC Glucose,Bedside 191 (70-110)
[2021-07-21 10:19] LABS: POC Glucose,Bedside 182 (70-110)
[2021-07-21 10:19] LABS: POC Glucose,Bedside 178 (70-110)
--- NOTE | 2021-07-21 15:10 | DIET.NUTRFU ---
Pt has remained NPO dt neurologic status/AMS- day 2. Weight stable. BG moderate avg. 175.
--- NOTE | 2021-07-21 17:30 | HMH.SLDYSPHA ---
Speech & Language Evaluation Speech/Language Dysphagia Evaluation Start: 07/21/21 17:26 Freq: ONCE Status: Active Protocol: Document 07/21/21 17:26 CLAUDIA (Rec: 07/21/21 17:30 CLAUDIA [id number]) Dysphagia Assess/Goals/Plan Assessment Date of Evaluation: 07/21/21 Evaluation Type Initial Certification Assessment/Problems Determine least restrictive diet Does Patient Qualify for Service No Qualify/Failure Comment No signs of dysphagia noted during evaluation. It is recommended patient be placed on mechanical soft diet with chopped meats with sauce/gravy with thin liquids. Recommendations PHYSICIAN CERTIFICATION: The specified therapy services are required, authorized, and reviewed every 30 days. Diet Recommendations Mechanical Soft Liquid Type Recommendations Normal/Thin SL Swallow Guidelines Standard Aspiration Prec. Dysphagia Swallow Precautions/Strategies Sitting Upright (90 deg),Small Bites and Sips,Alternate Liquids/Solids Plan Pt/Guardian verbally ack understanding Yes of dx/prognosis/goals G -code Required No Speech & Language HPI Language Primary Language Arabic General Information General Current Food Consistancy NPO Dentition Upper & Lower Dentures Oxygen Status Nasal Cannula Facial Symmetry Symmetrical Patient Orientation Person,Place Ability to Follow Directions Excellent Communication Ability No Impairment Dysphagia:Food Presentation Evaluation Food Type Pureed,Mechanical Soft,Liquid, Pudding Dysphagia Evaluation Summary Ms. Moctezuma was given the following consistencies: thins via straw and open cup, pudding, pureed, and mechanical soft. No signs of dysphagia were noted during evaluation. At this time, the least restictive diet would be mechanical soft diet with chopped meats with gravy/sauce and thin liquids. Straws are ok to have. At this time, speech therapy is not warranted due to no overt signs or symptoms of aspiration noted during evaluation. Stroke Dysphag
--- NOTE | 2021-07-21 19:51 | PC.NURSE ---
Patient is on tele and has a BBB. Patient is on room air and on bedrest. Swallow eval done, patient on regular diet. Dillard catheter in place. Urine has a foul, strong odor. Patient has been alert and oriented and talking.
[2021-07-21 22:07] LABS: POC Glucose,Bedside 219 (70-110)
[2021-07-22] VITALS (9 sets, daily range): BP systolic 134–168; BP diastolic 60–69; PULSE 59–80; RESP 14–18; TEMP 36.8–37.3; O2SAT 91–98; BMI 39.7
[2021-07-22 03:42] LABS: POC Glucose,Bedside 169 (70-110)
--- NOTE | 2021-07-22 08:27 | HMH.ACPN2 ---
Internal Medicine - PN: Subj *Date: 07/22/21 *Time: 08:27 Interval history: Mental status began clearing yesterday. She is oriented to name and place. She does not know the date. Speech therapy eval noted. She has been started on a mechanical soft diet. Seems to be tolerating well. Exam Vital signs and Labs for Last 24 Hours: Temp Pulse Resp BP Pulse Ox 98.6 F 80 14 168/66 H 91 L 07/22/21 03:41 07/22/21 04:00 07/22/21 03:41 07/22/21 03:41 07/22/21 03:41 Laboratory Results - last 24 hr 07/20/21 11:08: POC Glucose 182 H 07/20/21 16:15: POC Glucose 169 H 07/20/21 21:18: POC Glucose 191 H 07/21/21 03:09: POC Glucose 178 H 07/21/21 09:04: POC Glucose 162 H 07/21/21 21:56: POC Glucose 219 H 07/22/21 03:32: POC Glucose 169 H I & O for Last 24 hours: Intake & Output 07/19/21 07/20/21 07/21/21 07/22/21 11:59 11:59 11:59 11:59 Intake Total 60 / 60 960 / 960 1067 / 1067 360 / 360 Output Total 1500 / 1500 3350 / 3350 2800 / 2800 650 / 650 Balance -1440 / -1440 -2390 / -2390 -1733 / -1733 -290 / -290 Weight 239 lb 234 lb 4.8 oz 235 lb 14.4 oz 233 lb Microbiology Reports for the Last 24 Hours: Microbiology 07/19/21 12:55 Urine,Catheterized Urine Culture - Final Escherichia coli Narrative: She is alert and pleasant. Oriented to name and place. Color slightly pale. Speech is only slightly slurred. Lungs are clear to auscultation. Heart is regular. Extremities trace pedal edema. Assessment and Plan (1) R.I.N.D. syndrome Status: Acute Category: Medical Code(s): I63.9 - Cerebral infarction, unspecified (2) Altered mental status Status: Acute Qualifiers: Altered mental status type: disorientation Qualified Code(s): R41.0 - Disorientation, unspecified Category: Medical Code(s): R41.82 - Altered mental status, unspecified (3) Lower extremity edema Status: Chronic Category: Medical Code(s): R60.0 - Localized edema (4) Anemia Status: Chronic Qualifiers: Anemia type: unspecified type Qualified Code(s): D64.9 - Anemia, unspecified Category: Medical Code(s): D64.9 - Anemia, unspecified (5) CAD (coronary artery disease) Status: Chronic Qualifiers: Coronary Disease-Associated Artery/Lesion type: [place] artery [place] vs. transplanted heart: [place] heart Associated angina: without angina Qualified Code(s): I25.10 - Atherosclerotic heart disease of [place] coronary artery without angina pectoris Category: Medical Code(s): I25.10 - Atherosclerotic heart disease of [place] coronary artery without angina pectoris (6) History of CVA (cerebrovascular accident) Status: Chronic Category: Medical Code(s): Z86.73 - Personal history of transient ischemic attack (TIA), and cerebral infarction without residual deficits (7) Hypertension Status: Chronic Qualifiers: Hypertension type: essential hypertension Category: Medical Code(s): I10 - Essential (primary) hypertension (8) Hypothyroid Status: Chronic Qualifiers: Hypothyroidism type: unspecified Qualified Code(s): E03.9 - Hypothyroidism, unspecified Category: Medical Code(s): E03.9 - Hypothyroidism, unspecified (9) Renal insufficiency Status: Chronic Category: Medical Code(s): N28.9 - Disorder of kidney and ureter, unspecified (10) Diabetes mellitus Status: Chronic Qualifiers: Diabetes mellitus type: type 1 Diabetes mellitus complication status: with other specified complication Qualified Code(s): E10.69 - Type 1 diabetes mellitus with other specified complication Category: Medical Code(s): E11.9 - Type 2 diabetes mellitus without complications (11) E. coli UTI Status: Acute Category: Medical Code(s): N39.0 - Urinary tract infection, site not specified; B96.20 - Unspecified Escherichia coli [E. coli] as the cause of diseases classified elsewhere - Assessment and plan all Dx Assessment a
[2021-07-22 10:18] LABS: POC Glucose,Bedside 203 (70-110)
--- NOTE | 2021-07-22 15:41 | PC.NURSE ---
Patient is on telemetry and on room air. Patient is alert and oriented times four. Patient has been awake all day and talking. Patient is up in the chair, assist times two. 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 Patient was started back on her home medications and started on an antibiotic. Will continue to monitor.
[2021-07-22 17:20] LABS: POC Glucose,Bedside 217 (70-110)
[2021-07-22 20:17] LABS: POC Glucose,Bedside 215 (70-110)
[2021-07-23] VITALS (10 sets, daily range): BP systolic 109–152; BP diastolic 31–60; PULSE 47–62; RESP 16–17; TEMP 36.6–37.2; O2SAT 94–100; BMI 40.1
--- NOTE | 2021-07-23 03:19 | PC.NURSE ---
No acute changes t/o shift. Dillard in place draining yellow urine, with a strong odor. Pt denies any pain, N/V this shift. Pt remains orientated x3. Pt received a bed bath this shift. VSS, call light within reach, will continue to monitor.
[2021-07-23 04:06] LABS: POC Glucose,Bedside 150 (70-110)
--- NOTE | 2021-07-23 08:32 | HMH.ACPN2 ---
Internal Medicine - PN: Subj *Date: 07/23/21 *Time: 12:48 Interval history: Uneventful night. Rested fairly well. Staff reports she sat up in the chair most of the day yesterday. She had a good day. She has been eating and tolerating her diet. No dysphagia. Her only complaint today is irritation of her IV site. Exam Vital signs and Labs for Last 24 Hours: Temp Pulse Resp BP Pulse Ox 98.1 F 58 L 16 122/59 L 98 07/23/21 08:00 07/23/21 08:00 07/23/21 08:00 07/23/21 08:00 07/23/21 08:00 Laboratory Results - last 24 hr 07/22/21 10:01: POC Glucose 203 H 07/22/21 16:34: POC Glucose 217 H 07/22/21 20:06: POC Glucose 215 H 07/23/21 03:58: POC Glucose 150 H I & O for Last 24 hours: Intake & Output 07/20/21 07/21/21 07/22/21 07/23/21 11:59 11:59 11:59 11:59 Intake Total 960 / 960 1067 / 1067 720 / 720 1462 / 1462 Output Total 3350 / 3350 2800 / 2800 1250 / 1250 1450 / 1450 Balance -2390 / -2390 -1733 / -1733 -530 / -530 Weight 234 lb 4.8 oz 235 lb 14.4 oz 233 lb 235 lb Microbiology Reports for the Last 24 Hours: Microbiology 07/19/21 12:55 Urine,Catheterized Urine Culture - Final Escherichia coli Narrative: She is alert and oriented. Speech is clear. Lungs are clear to auscultation. Heart is regular. Abdomen is obese, soft, nondistended and nontender. Extremities with trace pedal edema Assessment and Plan (1) R.I.N.D. syndrome Status: Acute Category: Medical Code(s): I63.9 - Cerebral infarction, unspecified (2) Altered mental status Status: Acute Qualifiers: Altered mental status type: disorientation Qualified Code(s): R41.0 - Disorientation, unspecified Category: Medical Code(s): R41.82 - Altered mental status, unspecified (3) E. coli UTI Status: Acute Category: Medical Code(s): N39.0 - Urinary tract infection, site not specified; B96.20 - Unspecified Escherichia coli [E. coli] as the cause of diseases classified elsewhere (4) Lower extremity edema Status: Chronic Category: Medical Code(s): R60.0 - Localized edema (5) Anemia Status: Chronic Qualifiers: Anemia type: unspecified type Qualified Code(s): D64.9 - Anemia, unspecified Category: Medical Code(s): D64.9 - Anemia, unspecified (6) CAD (coronary artery disease) Status: Chronic Qualifiers: Coronary Disease-Associated Artery/Lesion type: [place] artery [place] vs. transplanted heart: [place] heart Associated angina: without angina Qualified Code(s): I25.10 - Atherosclerotic heart disease of [place] coronary artery without angina pectoris Category: Medical Code(s): I25.10 - Atherosclerotic heart disease of [place] coronary artery without angina pectoris (7) History of CVA (cerebrovascular accident) Status: Chronic Category: Medical Code(s): Z86.73 - Personal history of transient ischemic attack (TIA), and cerebral infarction without residual deficits (8) Hypertension Status: Chronic Qualifiers: Hypertension type: essential hypertension Category: Medical Code(s): I10 - Essential (primary) hypertension (9) Hypothyroid Status: Chronic Qualifiers: Hypothyroidism type: unspecified Qualified Code(s): E03.9 - Hypothyroidism, unspecified Category: Medical Code(s): E03.9 - Hypothyroidism, unspecified (10) Renal insufficiency Status: Chronic Category: Medical Code(s): N28.9 - Disorder of kidney and ureter, unspecified (11) Diabetes mellitus Status: Chronic Qualifiers: Diabetes mellitus type: type 1 Diabetes mellitus complication status: with other specified complication Qualified Code(s): E10.69 - Type 1 diabetes mellitus with other specified complication Category: Medical Code(s): E11.9 - Type 2 diabetes mellitus without complications - Assessment and plan all Dx Assessment and Plan for all problems:: Continues to improve from a neurologic standpoint. W
[2021-07-23 09:35] LABS: POC Glucose,Bedside 218 (70-110)
[2021-07-23 17:47] LABS: POC Glucose,Bedside 263 (70-110)
--- NOTE | 2021-07-23 20:10 | PC.NURSE ---
No acute changes this shift. IV infiltrated this am. Dr. Cotter aware that pt didnt have IV access and changed abx to po. Have attempted to start an IV several times,along with another RN and have been unsuccessful. brake repair supervisor RN's will attempt to start one. Pt has been up to chair with no c/o's. Did elevate L arm to decrease swelling. Pules bounding and 2 plus.
[2021-07-23 23:30] LABS: POC Glucose,Bedside 250 (70-110)
[2021-07-24] VITALS: PULSE 60
[2021-07-24 03:58] VITALS: BP 140/53; PULSE 59; RESP 15; TEMP 36.6; O2SAT 96
[2021-07-24 04:00] VITALS: PULSE 60
--- NOTE | 2021-07-24 04:02 | PC.NURSE ---
pt remains alert and oriented x4, negative for any stroke signs and symptoms, pt was able to state her name, place and comprehend nursing care provided. no complaints of nausea and vomiting, no pain or dizziness or soa
[2021-07-24 04:55] VITALS: BMI 41.3
[2021-07-24 07:58] VITALS: BP 146/55; PULSE 61; RESP 18; TEMP 36.8; O2SAT 97
--- NOTE | 2021-07-24 08:26 | HMH.ACPN2 ---
<Lola Grewal - Last Filed: 07/24/21 08:26> Internal Medicine - PN: Subj *Date: 07/24/21 *Time: 08:26 Interval history: Patient is resting quietly in bed. She is alert and oriented and has no complaint. She tolerated breakfast well and is looking forward to discharge. Exam Vital signs and Labs for Last 24 Hours: Temp Pulse Resp BP Pulse Ox 98.2 F 61 18 146/55 H 97 07/24/21 07:58 07/24/21 07:58 07/24/21 07:58 07/24/21 07:58 07/24/21 07:58 Laboratory Results - last 24 hr 07/23/21 09:23: POC Glucose 218 H 07/23/21 17:36: POC Glucose 263 H 07/23/21 20:47: POC Glucose 250 H I & O for Last 24 hours: Intake & Output 07/21/21 07/22/21 07/23/21 07/24/21 11:59 11:59 11:59 11:59 Intake Total 1067 / 1067 720 / 720 1462 / 1462 960 / 960 Output Total 2800 / 2800 1250 / 1250 1450 / 1450 850 / 850 Balance -1733 / -1733 -530 / -530 110 / 110 Weight 235 lb 14.4 oz 233 lb 235 lb 242 lb Microbiology Reports for the Last 24 Hours: Microbiology 07/18/21 20:18 Blood Blood Culture - Final NO GROWTH AFTER 5 DAYS 07/18/21 20:18 Blood Blood Culture - Final NO GROWTH AFTER 5 DAYS - Constitutional no acute distress - *Routine HEENT Exam Head: Present: normocephalic ENT: Present: mucous membranes moist - *Routine Respiratory Exam Present: CTA bilaterally Comments: diminished at bilateral bases - *Routine Cardiovascular Exam Present: RRR - *Routine Abdominal Exam Present: soft, normoactive bowel sounds, obese. Absent: tenderness, distended, guarding, firm, rigid - *Routine Extremities Exam Present: pulses intact. Absent: calf tenderness, extremity cold to touch Comments: 1+ BLE edema - *Routine Neurological Exam Present: alert, oriented X3, normal speech Assessment and Plan (1) R.I.N.D. syndrome Status: Acute Category: Medical Code(s): I63.9 - Cerebral infarction, unspecified (2) Altered mental status Status: Acute Qualifiers: Altered mental status type: disorientation Qualified Code(s): R41.0 - Disorientation, unspecified Category: Medical Code(s): R41.82 - Altered mental status, unspecified (3) E. coli UTI Status: Acute Category: Medical Code(s): N39.0 - Urinary tract infection, site not specified; B96.20 - Unspecified Escherichia coli [E. coli] as the cause of diseases classified elsewhere (4) Lower extremity edema Status: Chronic Category: Medical Code(s): R60.0 - Localized edema (5) Anemia Status: Chronic Qualifiers: Anemia type: unspecified type Qualified Code(s): D64.9 - Anemia, unspecified Category: Medical Code(s): D64.9 - Anemia, unspecified (6) CAD (coronary artery disease) Status: Chronic Qualifiers: Coronary Disease-Associated Artery/Lesion type: [place] artery [place] vs. transplanted heart: [place] heart Associated angina: without angina Qualified Code(s): I25.10 - Atherosclerotic heart disease of [place] coronary artery without angina pectoris Category: Medical Code(s): I25.10 - Atherosclerotic heart disease of [place] coronary artery without angina pectoris (7) History of CVA (cerebrovascular accident) Status: Chronic Category: Medical Code(s): Z86.73 - Personal history of transient ischemic attack (TIA), and cerebral infarction without residual deficits (8) Hypertension Status: Chronic Qualifiers: Hypertension type: essential hypertension Category: Medical Code(s): I10 - Essential (primary) hypertension (9) Hypothyroid Status: Chronic Qualifiers: Hypothyroidism type: unspecified Qualified Code(s): E03.9 - Hypothyroidism, unspecified Category: Medical Code(s): E03.9 - Hypothyroidism, unspecified (10) Renal insufficiency Status: Chronic Category: Medical Code(s): N28.9 - Disorder of kidney and ureter, unspecified (11) Diabetes mellitus Status: Chronic Qualifiers:
[2021-07-24 08:56] LABS: Coronavirus 19, PCR Not Detected (NotDetected); Influenza A, PCR Not Detected (NotDetected); Influenza B, PCR Not Detected (NotDetected)
--- NOTE | 2021-07-24 09:34 | HMH.DCSUM ---
General - General Admission date:: 07/20/21 <Harry Cotter - 08/26/21 23:12> 07/20/21 <Lola Grewal - 07/24/21 09:47> Discharge date: 07/24/21 <Lola Grewal - 07/24/21 09:47> HPI HPI: Ms. Moctezuma was an 80-year-old female with a history of type 2 diabetes mellitus, hypothyroidism, hyperlipidemia, intermittent atrial fib, DVT, hypertension, GERD, depression, ASCVD, and previous CVA who had been residing at [facility] and was transported to [facility] emergency room for evaluation for her altered mental status. She was initially seen in the emergency room on the a.m. of 07/18/2021 with hypoglycemia. At that time patient stated that she did not feel well. Blood sugar in the emergency room was 118. This was after receiving orange juice in the nursing facility. She was discharged back to the senior living. She then returned in the p.m. of 07/18/2021 to the ER after senior living staff noted confusion. At this time her mental status in the ER appeared markedly changed. She was unable to provide any information herself. Blood sugars reportedly had been normal since the confusion began. The patient's son did call the nursing staff in the ER before the patient arrived and reported that he had spoken with her on the phone and felt she had been confused which was similar to when she had her previous stroke. In the ER she did not answer questions appropriately but repeatedly said yes. She would not open her eyes. Previous urinalysis was negative. CBC revealed her chronic anemia. Blood chemistries showed a BUN of 20 and creatinine of 1 with normal electrolytes. Troponin I was negative. TSH was elevated at 9.71. Head CT revealed the following: IMPRESSION: There is moderate central and peripheral cerebral atrophy with mild global ventriculomegaly and changes of chronic deep white matter ischemia. No evidence of acute intracranial bleed or focal cerebral edema. Chest x-ray revealed the following: IMPRESSION: There is moderate central and peripheral cerebral atrophy with mild global ventriculomegaly and changes of chronic deep white matter ischemia. No evidence of acute intracranial bleed or focal cerebral edema. She was then admitted for further evaluation and treatment. <Lola Grewal - 07/24/21 09:47> Hospital Course Hospital Course: On 07/20/21 she was still not alert. She remained calm with only unintelligible mumbling. Initial urine culture was pending and a second UA was obtained. An MRI was ordered to rule out stroke. By the morning of 07/21/21 she was able to state her name and knew where she was although she remained somnolent. The second UA returned abnormal and she was started on Levaquin. Her MRI did not show evidence of a stroke although stroke was suspected due to lack of contrast and motion artifact. It was felt her symptoms were clinically most consistent with stroke. Bedside swallow eval was ordered. The following morning her neurological deficits were clearing. She was alert and oriented with only mildly slurred speech. She was tolerating a mechanical soft diet per ST recommendation. She spent most of the day up in the chair. Urine culture returned showing growth of E.coli resistant to Levaquin, which was stopped, and she was started on Rocephin. She continued to improve and by the morning of 07/24/21 was felt stable to return to [facility] for therapy on oral antibiotics. <Lola Grewal - 07/24/21 09:47> Objective Vital signs: Temp Pulse Resp BP Pulse Ox 98.2 F 61 18 146/55 H 97 07/24/21 07:58 07/24/21 07:58 07/24/21 07:58 07/24/21 07:58 07/24/21 07:58 <Harry Cotter - 08/26/21 23:12> Temp Pulse Resp BP Pulse Ox 98.2 F 61 18 146/55 H 97 07/24/21 07:58 07/24/21 07:58 07/24/21 07:58 07/24/21 07:58 07/24/21 07:58 <Lola Grewal - 07/24/21 09:47> Results Labs on day of discharge:
[2021-07-26 07:05] LABS: POC Glucose,Bedside 139 (70-110)
== END 2021-07-24 11:55 | DRG 65 ==
LOC: ER 21:42 → 2ND 21:59
PROVIDERS: Emergency Medicine; Physician Assistant; Admitting Provider Family Medicine; Emergency Provider Emergency Medicine; PCP Family Medicine; Visit Provider Family Medicine
DX: I63.9 Cerebral infarction, unspecified (principal); N39.0 Urinary tract infection, site not specified; I13.0 Hypertensive heart and chronic kidney disease with heart failure and stage 1 through stage 4 chronic kidney disease, or unspecified chronic kidney disease; E03.9 Hypothyroidism, unspecified; Z20.822 Contact with and (suspected) exposure to COVID-19; Z86.73 Personal history of transient ischemic attack (TIA), and cerebral infarction without residual deficits; I25.10 Atherosclerotic heart disease of native coronary artery without angina pectoris; D64.9 Anemia, unspecified; B96.20 Unspecified Escherichia coli [E. coli] as the cause of diseases classified elsewhere; M19.90 Unspecified osteoarthritis, unspecified site; Z95.5 Presence of coronary angioplasty implant and graft; Z86.718 Personal history of other venous thrombosis and embolism; E78.5 Hyperlipidemia, unspecified; Z85.828 Personal history of other malignant neoplasm of skin; R47.81 Slurred speech; I50.9 Heart failure, unspecified; Z79.4 Long term (current) use of insulin; I48.91 Unspecified atrial fibrillation; E11.22 Type 2 diabetes mellitus with diabetic chronic kidney disease; N18.9 Chronic kidney disease, unspecified
CPT/HCPCS: 36415; 70450; 70551; 71045; 80048; 80053; 81001; 82962; 83605; 83735; 84145; 84436; 84443; 84484; 85025; 85651; 86140; 87040; 87086; 87088; 87186; 92610; 93005; 96374; 99284; C9803; G0378; J1956; J2405; U0003; U0005

== ENCOUNTER 2021-08-16 10:55 | Observation (INO) | payer MEDICARE, OTHER, SELFPAY ==
[2021-08-16] VITALS (15 sets, daily range): BP systolic 144–198; BP diastolic 58–86; PULSE 67–83; RESP 12–18; TEMP 36.4–36.8; O2SAT 92–96; BMI 44.9; BMI 41.3
--- NOTE | 2021-08-16 10:56 | CT_ITS ---
PROCEDURE INFORMATION: Exam: CT Head Without Contrast Exam date and time: 08/16/2021 10:56 AM Age: 80 years old Clinical indication: Altered mental status/memory loss; Additional info: AMS TECHNIQUE: Imaging protocol: Computed tomography of the head without contrast. Radiation optimization: All CT scans at this facility use at least one of these dose optimization techniques: automated exposure control; mA and/or kV adjustment per patient size (includes targeted exams where dose is matched to clinical indication); or iterative reconstruction. COMPARISON: CT HEAD/BRAIN WO CON 07/18/2021 7:54 PM FINDINGS: Brain: There is no acute intracranial hemorrhage or mass effect. Moderate diffuse volume loss is within the range of normal for patient age. There are small vessel ischemic changes within the periventricular and subcortical white matter, but the normal vasquez-white matter delineation is maintained. Cerebral ventricles: No ventriculomegaly. Paranasal sinuses: Visualized sinuses are unremarkable. No fluid levels. Mastoid air cells: Visualized mastoid air cells are well aerated. Bones/joints: Unremarkable. No acute fracture. Soft tissues: Unremarkable. IMPRESSION: No acute hemorrhage or edema.
--- NOTE | 2021-08-16 10:56 | XR_ITS ---
PROCEDURE INFORMATION: Exam: XR Chest Exam date and time: 08/16/2021 10:56 AM Age: 80 years old Clinical indication: Shortness of breath TECHNIQUE: Imaging protocol: XR of the chest. Views: 1 view. COMPARISON: CR XR CHEST PORTABLE 07/18/2021 10:22 AM FINDINGS: Lungs: There are streaky bibasilar airspace opacities. Pleural spaces: Unremarkable. No pleural effusion. No pneumothorax. Heart/Mediastinum: The heart is at the upper limits of normal in size. Bones/joints: Unremarkable. IMPRESSION: Streaky bibasilar airspace opacities, likely atelectasis.
[2021-08-16 11:30] LABS: Microscopic, Urine URINE MICROSCOPIC (MICROSCOPIC)
[2021-08-16 11:39] LABS: Appearance,Urine CLEAR (Clear); Bilirubin,Urine Negative (Negative); Blood, Urine Negative (Negative); Color,Urine YELLOW (Yellow); Glucose,Urine (UA) Negative (Negative); Ketones,Urine Negative (Negative); Leukocyte Esterase,Urine Negative (Negative); Nitrate,Urine Negative (Negative); Protein,Urine Negative (Negative); Specific Gravity, Urine 1.015 (1.005-1.030); Urobilinogen,Urine 0.2 EU/dl (0.2)
--- NOTE | 2021-08-16 11:41 | ECG_ITS ---
APPROVED REPORT Exam: Resting ECG HR:67 bpm ECG Measurements Heart Rate 67 AXES OH 194 P 14 QRSd 100 QRS -31 QT 438 T 16 QTc 462 Conclusion Normal sinus rhythm Left axis deviation Incomplete right bundle branch block Cannot rule out Anterior infarct, age undetermined Abnormal ECG Electronically signed by : John Rosado MD 08/17/2021 21:39:59
--- NOTE | 2021-08-16 11:45 | HMH.EDGENADL ---
ED Disposition Clinical Impression: Declining functional status Disposition: Admitted As Inpatient Condition on Discharge: Fair - Critical Care Critical Care Time: Yes Attestation: On 08/16/21, the high probability of a clinically significant, sudden or life threatening deterioration of the following system(s) required my full and direct attention, intervention and personal management. The time I documented below is in addition to time spent performing reported procedures but includes the following listed in this critical care notation. Total Critical Care Time: 35 Vital system(s) involved:: Central Nervous System My critical care processes included: Assessment & monitoring of V/S, Initial and Re-exams, Data Review/Interpretation, Coordinating Care, Medication Orders and management, Documentation Medical Decision Making - Wojciech Inquiry Pt receiving controlled substance: No Vital Signs: 08/16/21 10:52 08/16/21 11:10 08/16/21 11:30 Temperature 97.6 F Temperature Source Rectal Pulse Rate 71 Pulse Rate [Right Radial] 70 Respiratory Rate 16 16 16 Blood Pressure Blood Pressure [Right Arm] 144/68 H Blood Pressure Mean Blood Pressure Mean [Right Arm] 93 Blood Pressure Source [Right Arm] Automatic Cuff Blood Pressure Position [Right Arm] Supine 02 Sat by Pulse Oximetry 93 L 94 L Oxygen Delivery Method Room Air 08/16/21 12:00 08/16/21 12:45 08/16/21 13:01 Temperature Temperature Source Pulse Rate 72 67 70 Pulse Rate [Right Radial] Respiratory Rate 15 12 13 Blood Pressure 180/69 H 182/73 H Blood Pressure [Right Arm] Blood Pressure Mean 110 109 Blood Pressure Mean [Right Arm] Blood Pressure Source [Right Arm] Blood Pressure Position [Right Arm] 02 Sat by Pulse Oximetry 96 94 L 95 Oxygen Delivery Method - Lab Data Lab Results 08/16/21 10:56: VBG pH 7.48 H, VBG pCO2 34.9 L, VBG pO2 172.0 H, VBG HCO3 25.6, VBG Total CO2 26.7, VBG O2 Saturation 99.3 H, VBG Base Excess 2.1 08/16/21 11:18: Urine Color Yellow, Urine Appearance Clear, Urine pH 8.0, Ur Specific [place] 1.015, Urine Protein Negative, Urine Glucose (UA) Negative, Urine Ketones Negative, Urine Blood Negative, Urine Nitrate Negative, Urine Bilirubin Negative, Urine Urobilinogen 0.2, Ur Leukocyte Esterase Negative, Ur Squamous Epith Cells 3-5 11/17/21 12:20: Lactate 1.1 08/16/21 12:55: WBC 5.0, RBC 3.04 L, Hgb 9.4 L, Hct 28.5 L, MCV 93.9, MCH 31.0, MCHC 33.0, RDW 15.2, Plt Count 373, MPV 8.1, Neut % (Auto) 62.0, Lymph % (Auto) 28.6, [place] % (Auto) 6.7, Eos % (Auto) 1.6, Baso % (Auto) 1.1, Neut # (Auto) 3.1, Lymph # (Auto) 1.4, [place] # (Auto) 0.3, Eos # (Auto) 0.1, Baso # (Auto) 0.1 08/16/21 12:55: Sodium 144, Potassium 4.2, Chloride 108 H, Carbon Dioxide 31 H, Anion Gap 9.2, BUN 21 H, Creatinine 1.00, Estimated Creat Clear 40, Estimated GFR 53 L, Est GFR ( Amer) 64, Glucose 138 H, Calcium 9.1, Total Bilirubin 0.3, AST 26, ALT 18, Alkaline Phosphatase 130 H, Troponin I < 0.01, NT-Pro-B Natriuret Pep 791 H, Total Protein 6.2 L, Albumin 3.2 L, Globulin 3.0, Albumin/Globulin Ratio 1.1, TSH 4.84 H, Salicylates < 1.0 L, Acetaminophen < 10 L Result diagrams: 08/16/21 12:55 08/16/21 12:55 Orders (Tests/Meds): ED MEDICATIONS Generic Name Dose Route Start Last Admin Trade Name Freq PRN Reason Stop Dose Admin Insulin Human Lispro 0 unit 08/16/21 13:45 Humalog 100 Units/Ml 3ml Vial (Ssi) SQ 09/15/21 13:44 Q6H [facility] Protocol ORDERS Category Date Time Status Troponin I Q3H Lab 08/16/21 14:00 Received Troponin I Q3H Lab 08/16/21 17:00 Ordered Urine Culture(cathed specimen) Stat Micro 08/16/21 11:18 Received Medical Decision Narrative: She is an 80-year-old female with past medical history of dementia, diabetes, hypertension, prior strokes presenting to the ED for mental status. Patient is awake, opens eyes to pain, moans. Patient is hemodynamically stable, afebrile. Physical e
--- NOTE | 2021-08-16 12:00 | PC.NURSE ---
outpt surgery staff at attempting IV r/t previous unsuccessful attempts
--- NOTE | 2021-08-16 12:42 | PC.NURSE ---
notified RT of of VBG order
[2021-08-16 12:48] LABS: Lactic Acid 1.1 mmol/L (0.7-2.1)
[2021-08-16 13:11] LABS: Basophils # 0.1 K/mm3 (0-0.2); Basophils % 1.1 % (0.1-2.0); Eosinophils # 0.1 K/mm3 (0.0-0.4); Eosinophils % 1.6 % (0.1-12.0); Hematocrit 28.5 % (37.0-47.0); Hemoglobin 9.4 g/dL (12.2-16.2); Lymphocytes # 1.4 K/mm3 (0.7-4.5); Lymphocytes % 28.6 % (10-50); Mean Corpuscular Volume 93.9 fl (81-99); Mean Platelet Volume 8.1 fl (7.4-10.4); Monocytes # 0.3 K/mm3 (0.1-1.0); Monocytes % 6.7 % (1.7-9.3); Neutrophils # 3.1 K/mm3 (1.8-7.8); Platelet Count 373 K/mm3 (142-424); Red Blood Count 3.04 M/mm3 (4.20-5.40); Red Cell Distribution Width 15.2 % (11.5-17.5)
[2021-08-16 13:19] LABS: Alanine Aminotransferase 18 U/L (12-78); Albumin Level 3.2 g/dl (3.5-5.0); Albumin/Globulin Ratio 1.1 (1.1-1.8); Alkaline Phosphatase 130 U/L (38-126); Anion Gap 9.2 mEq/L (5-15); Aspartate Amino Transferase 26 U/L (14-36); Bilirubin,Total 0.3 mg/dl (0.2-1.3); Blood Urea Nitrogen 21 mg/dl (7-17); Calcium 9.1 mg/dl (8.4-10.2); Carbon Dioxide 31 mmol/L (22.0-30.0); Chloride 108 mmol/L (98-107); Creatinine Clearance Estimated 40 mL/min (50-200); Estimated Glomerular Filt Rate 53 ml/min (>60); GFR (African American) 64 ML/MIN (>60); Glucose 138 mg/dl (74-100); Potassium 4.2 mmoL/L (3.5-5.1); Sodium 144 mmol/L (136-145); Total Protein,Serum 6.2 g/dl (6.3-8.2)
[2021-08-16 13:20] LABS: Acetaminophen < 10 ug/ml (10-30); Salicylate < 1.0 mg/dL (2.0-20.0)
[2021-08-16 13:31] LABS: NT Pro Brain Natriuretic Pep. 791 pg/mL (0-450)
[2021-08-16 13:32] LABS: Troponin I < 0.01 ng/ml (0.00-0.034)
[2021-08-16 13:50] LABS: Thyroid Stimulating Hormone 4.84 uIU/mL (0.465-4.68)
[2021-08-16 13:52] LABS: VBG Base Excess 2.1 mmol/L (-2.4-2.3); VBG HCO3 25.6 mmol/L (23-30); VBG Oxygen Saturation 99.3 % (50-70); VBG PCO2 34.9 mmol/L (35-51); VBG PH 7.48 mmol/L (7.31-7.41); VBG Total CO2 26.7 mmol/L (23-27)
[2021-08-16 14:29] LABS: Coronavirus 19, PCR Not Detected (NotDetected); Influenza A, PCR Not Detected (NotDetected); Influenza B, PCR Not Detected (NotDetected)
--- NOTE | 2021-08-16 15:00 | PC.NURSE ---
pt is somewhat more responsive than upon arrival. Pt will attempt to respond when you talk to her but her words are still incomprehensible. ER MD is aware, will continue to monitor
--- NOTE | 2021-08-16 15:32 | PC.NURSE ---
report called to lorie santiago on second floor at this time, states she will send staff down to transport pt
[2021-08-16 15:48] LABS: Troponin I < 0.01 ng/ml (0.00-0.034)
--- NOTE | 2021-08-16 16:58 | PC.NURSE ---
Pt to floor approx 1630. FS 161. Pt speaking nonsensical words. PERRL noted to bilat eyes. Bed alarm in use r/t safety. Reactive to stimuli. Unable to follow commands.
--- NOTE | 2021-08-16 17:46 | HMH.HP ---
*Admission Date: 08/16/21 *Chief complaint: AMS *History of present illness: Patient is a 80-year-old female with past medical history of dementia, prior strokes, congestive heart failure presenting to the ED from a skilled nursing for altered mental status. Unknown patient's baseline however patient does have significant history of dementia. patient was more altered than baseline and EMS was called. EMS skilled nursing stated that patient was more altered than her baseline. Otherwise did not report any fevers, increased cough or shortness of breath. Patient unable to give any history symptoms just moans. Patient is awake, opens eyes to pain, moans. Patient is hemodynamically stable, afebrile. Physical exam is remarkable for clear breath sounds bilaterally soft nondistended nontender abdomen. Differential includes but is not limited to altered mental status secondary to intracranial process such as an intracranial bleed, stroke, infection including pneumonia, UTI. Volume overload secondary to CHF exacerbation, electrolyte abnormalities, functional decline. Given this a CBC, CMP, electrolytes, troponin, EKG, CT head, UA, urine cultures, chest x-ray is performed. Patient's lab work is unremarkable, chest x-ray shows atelectasis, UA is without any infection, CT head does not show any signs of a bleed or stroke. At this point patient remains altered. She was discussed with her care physician for an admission to the hospital. She is admitted to the hospital for further care and management. (above as per ER physician) [facility] History I have reviewed the patient's past medical history: Yes Medical History: Reports:: Atherosclerotic Heart Disease, Congestive Heart Failure, Congenital Heart Disease, Coronary Artery Disease, Cerebrovascular Accident, Deep Vein Thrombosis, Depression, Diabetes Mellitus Type 2, Gastroesophageal Reflux Disease(GERD), Hyperlipidemia, Hypertension, Urinary Tract Infection Denies:: Cancer, Diabetes Mellitus Type 1, Internal Pacemaker, MRSA, Seizures *Have you ever received a pneumonia vaccine?: No *Have you received a flu vaccine this season?: No Other Medical History: Reports: Anemia, Arthritis, Hypothyroidism, Thyroid Disease Other Surgeries: Yes: Appendectomy, Cardiac Catheterization, Cholecystectomy, Colonoscopy, Coronary Stent, EGD, Hernia Repair, Hysterectomy-Total, Skin Cancer Excision, Other. No: Pacemaker Amputation: No Fractures: Yes (L humerus, R humerus) - *Social History Smoking Status: Never smoker Alcohol Intake: never Alcohol Intake Frequency:: other Substance Use Type: denies use *Occupational Status:: retired Housing: skilled nursing Household Members: other *Travel in the last 8 weeks: None - Psychiatric History Pschychiatric History:: Reports:: Depression Family Hx:: Coronary Artery Disease Review of Systems - Review of Systems Review of systems:: unable to obtain Meds Home Medications Medication Instructions Recorded Confirmed Type aspirin 81 mg tablet,delayed 81 mg PO DAILY 02/10/18 08/16/21 History release cyanocobalamin (vitamin B-12) 1,000 mcg PO DAILY 02/10/18 08/16/21 History 1,000 mcg tablet pravastatin 80 mg tablet 80 mg PO HS 02/10/18 08/16/21 History Calcium Carbonate/Vitamin D3 1 tab PO DAILY 02/05/21 08/16/21 History [Calcium 600-Vit D3 800 Tablet] carvediloL [Carvedilol 6.25mg Tab] 6.25 mg PO BID 02/05/21 08/16/21 History Levothyroxine Sodium 150 mcg PO DAILY 02/08/21 08/16/21 History [Levothyroxine 150mcg (0.15mg) Tab] clopidogrel 75 mg tablet 75 mg PO DAILY tab 03/24/21 08/16/21 History Cetirizine HCl 10 mg PO DAILY 03/31/21 08/16/21 History Guaifenesin/Dextromethorphan 10 ml PO Q4HWA PRN 03/31/21 08/16/21 History [Guaifenesin-Dm 100-10 mg/5 ml] Pantoprazole Sodium [Protonix 40mg 40 mg PO DAILY 03/31/21 08/16/21 History tablet] Sennosides [Senna] 8.6 mg PO DAILY PRN 03/31/21 08/16/21 History lisinopriL [Zestril 10mg Tab] 10 mg PO DAILY 03/31/21
[2021-08-16 19:41] LABS: Troponin I < 0.01 ng/ml (0.00-0.034)
[2021-08-17 01:34] LABS: POC Glucose,Bedside 162 (70-110)
[2021-08-17 01:34] LABS: POC Glucose,Bedside 161 (70-110)
[2021-08-17 01:49] LABS: POC Glucose,Bedside 176 (70-110)
[2021-08-17 04:00] VITALS: BP 161/106; PULSE 78; RESP 14; TEMP 36.7; O2SAT 95
[2021-08-17 05:17] VITALS: BMI 41.1
--- NOTE | 2021-08-17 05:25 | PC.NURSE ---
Pt remains unresponsive thus far in shift, will react to painful stimuli. Unable to follow commands. Dillard is draining clear yellow urine. Bed safety is in use. Pt refused to take night time meds. Dressing to bottom is C/D/I. Spoke with Son Colton Urrutia (POA) and set up a password of Courtney .
[2021-08-17 06:25] LABS: POC Glucose,Bedside 168 (70-110)
--- NOTE | 2021-08-17 07:27 | P.CONPHA_ITS ---
[facility] VTE Monitoring - Patient Demographics Admission date: 08/16/21 Report Date: 08/17/21 Time: 07:28 Allergies/Adverse Reactions: Patient Allergies Iodinated Contrast Media Allergy (Intermediate, Verified 07/26/21 13:19) naproxen [NAPROXEN] Allergy (Mild, Verified 07/26/21 13:19) Height: 1.6 m Weight: 105.4 kg Patient Problems: Current Active Problems Hypothyroid (Chronic) Altered mental status (Acute) History of CVA (cerebrovascular accident) (Chronic) Declining functional status (Acute) CAD (coronary artery disease) (Chronic) Diabetes mellitus (Chronic) Hypertension (Chronic) - VTE Risk Labs: VTE Related Lab Results Hgb 9.4 g/dL (12.2-16.2) L 08/16/21 12:55 Hct 28.5 % (37.0-47.0) L 08/16/21 12:55 Plt Count 373 K/mm3 (142-424) 08/16/21 12:55 BUN 21 mg/dl (7-17) H 08/16/21 12:55 Creatinine 1.00 mg/dl (0.52-1.04) 08/16/21 12:55 Estimated Creat Clear 40 mL/min (50-200) 08/16/21 12:55 - Prophylaxis VTE Prophylaxis Ordered?: Yes Types of VTE Prophylaxis: TEDS Knee High Location of Applied Device: Bilateral Lower Extremeties
--- NOTE | 2021-08-17 07:46 | HMH.PHAINT ---
Verified home medications with [facility]
[2021-08-17 08:00] VITALS: BP 197/69; PULSE 84; RESP 20; TEMP 36.9; O2SAT 96
--- NOTE | 2021-08-17 08:37 | HMH.ACPN2 ---
<Lola Grewal - Last Filed: 08/17/21 08:37> Internal Medicine - PN: Subj *Date: 08/17/21 *Time: 08:37 Interval history: She is resting quietly in bed. She arouses to voice and responds to every question with sky swanson kana . She does comply when asked to take deep breaths, however, she will not squeeze with either hand or open her eyes when instructed. Exam Vital signs and Labs for Last 24 Hours: Temp Pulse Resp BP Pulse Ox 98.4 F 84 20 197/69 H 96 08/17/21 08:00 08/17/21 08:00 08/17/21 08:00 08/17/21 08:00 08/17/21 08:00 Laboratory Results - last 24 hr 08/16/21 10:56: VBG pH 7.48 H, VBG pCO2 34.9 L, VBG pO2 172.0 H, VBG HCO3 25.6, VBG Total CO2 26.7, VBG O2 Saturation 99.3 H, VBG Base Excess 2.1 08/16/21 11:18: Urine Color Yellow, Urine Appearance Clear, Urine pH 8.0, Ur Specific [place] 1.015, Urine Protein Negative, Urine Glucose (UA) Negative, Urine Ketones Negative, Urine Blood Negative, Urine Nitrate Negative, Urine Bilirubin Negative, Urine Urobilinogen 0.2, Ur Leukocyte Esterase Negative, Ur Squamous Epith Cells 3-5 08/16/21 12:20: Lactate 1.1 08/16/21 12:55: WBC 5.0, RBC 3.04 L, Hgb 9.4 L, Hct 28.5 L, MCV 93.9, MCH 31.0, MCHC 33.0, RDW 15.2, Plt Count 373, MPV 8.1, Neut % (Auto) 62.0, Lymph % (Auto) 28.6, [place] % (Auto) 6.7, Eos % (Auto) 1.6, Baso % (Auto) 1.1, Neut # (Auto) 3.1, Lymph # (Auto) 1.4, [place] # (Auto) 0.3, Eos # (Auto) 0.1, Baso # (Auto) 0.1 08/16/21 12:55: Sodium 144, Potassium 4.2, Chloride 108 H, Carbon Dioxide 31 H, Anion Gap 9.2, BUN 21 H, Creatinine 1.00, Estimated Creat Clear 40, Estimated GFR 53 L, Est GFR ( Amer) 64, Glucose 138 H, Calcium 9.1, Total Bilirubin 0.3, AST 26, ALT 18, Alkaline Phosphatase 130 H, Troponin I < 0.01, NT-Pro-B Natriuret Pep 791 H, Total Protein 6.2 L, Albumin 3.2 L, Globulin 3.0, Albumin/Globulin Ratio 1.1, TSH 4.84 H, Salicylates < 1.0 L, Acetaminophen < 10 L 08/16/21 14:00: Troponin I < 0.01 08/16/21 14:20: SARS-CoV-2 (PCR) Not detected, Influenza A Untype (PCR) Not detected, Influenza Type B (PCR) Not detected 08/16/21 16:34: POC Glucose 161 H 08/16/21 17:48: Troponin I < 0.01 08/16/21 20:19: POC Glucose 162 H 08/17/21 01:41: POC Glucose 176 H 08/17/21 06:14: POC Glucose 168 H I & O for Last 24 hours: Intake & Output 08/14/21 08/15/21 08/16/21 08/17/21 11:59 11:59 11:59 11:59 Output Total 3350 / 3350 Balance -3350 / -3350 Weight 270 lb 232 lb 5.875 oz - Constitutional no acute distress, cooperative - *Routine HEENT Exam Head: Present: normocephalic, atraumatic - *Routine Respiratory Exam Present: CTA bilaterally. Absent: respiratory distress, rhonchi, wheezes - *Routine Cardiovascular Exam Present: RRR, murmur - *Routine Abdominal Exam Present: soft, normoactive bowel sounds, obese. Absent: tenderness, distended - *Routine Extremities Exam Present: pulses intact. Absent: extremity cold to touch Comments: 1+ BLE edema - *Routine Neurological Exam Absent: normal speech arouses to voice Assessment and Plan (1) Declining functional status Status: Acute Category: Medical Code(s): R53.81 - Other malaise (2) Altered mental status Status: Acute Category: Medical Code(s): R41.82 - Altered mental status, unspecified (3) CAD (coronary artery disease) Status: Chronic Qualifiers: Coronary Disease-Associated Artery/Lesion type: [place] artery [place] vs. transplanted heart: [place] heart Associated angina: without angina Qualified Code(s): I25.10 - Atherosclerotic heart disease of [place] coronary artery without angina pectoris Category: Medical Code(s): I25.10 - Atherosclerotic heart disease of [place] coronary artery without angina pectoris (4) Diabetes mellitus Status: Chronic Qualifiers: Diabetes mellitus type: type 1 Diabetes mellitus complication status: with other specified complication Qualified Code(s): E10.69 - Type 1 diabetes mellitus with other specified complication
[2021-08-17 11:30] VITALS: BP 152/75; PULSE 84; RESP 14; TEMP 36.6; O2SAT 95
--- NOTE | 2021-08-17 11:46 | SW/DCPLANNER ---
Addendum entered by Kimber Browning 08/21/21 09:22: This patient will discharge back to [facility] today. COVID swab has been collected and faxed to Shikha ramirez/ [facility] this AM. COVID is negative. Addendum entered by Kimber Browning 08/18/21 10:17: If this patient discharges back to [facility] over the weekend she will require an additional COVID swab per Shikha. Original Note: This patient currently resides at [facility]. I spoke with Shikha ramirez/ [facility] and she stated that patient is currently private pay. I will continue to follow up with Shikha until patient is medically stable for discharge. Discharge date is unknown at this time.
[2021-08-17 13:49] VITALS: BMI 41.0
[2021-08-17 15:11] VITALS: BP 186/98; PULSE 87; RESP 20; TEMP 37.3; O2SAT 96
--- NOTE | 2021-08-17 15:57 | PC.NURSE ---
1558 - contacted for SBP 180's manually, received order for 5 mg IV Lopressor x1 now. Pt unable to take PO meds.
[2021-08-17 16:53] VITALS: BP 168/72; PULSE 80; RESP 14; O2SAT 96
--- NOTE | 2021-08-17 16:54 | PC.NURSE ---
No acute changes. Pt is responsive to painful stimuli only, she continuously says melissada kuda sachi . PERRLA. Is unable to follow commands. Maintains NPO status. Lungs diminished. HR regular. Abdomen large, soft, non-tender w/ active BS. No BM this shift. [place]illard to drain @ bedside w/ clear yellow urine. Pt is total care, requires turning Q2H. Oral care provided throughout shift. Nursing have spoke to pt's on phone multiple times this shift, updated on POC. Bed alarm in place for safety.
[2021-08-17 17:58] LABS: POC Glucose,Bedside 185 (70-110)
[2021-08-17 19:16] VITALS: BP 196/85; PULSE 81; RESP 20; TEMP 37.3; O2SAT 97
[2021-08-17 21:45] LABS: POC Glucose,Bedside 186 (70-110)
[2021-08-18] VITALS: BP 183/73; PULSE 79; RESP 18; TEMP 37.2; O2SAT 97
[2021-08-18 02:20] LABS: POC Glucose,Bedside 174 (70-110)
[2021-08-18 04:00] VITALS: BP 180/96; PULSE 82; RESP 18; TEMP 36.8; O2SAT 95
[2021-08-18 05:15] VITALS: BMI 40.6
--- NOTE | 2021-08-18 05:57 | PC.NURSE ---
Patient has started to say more words and make sentences t/o the night. Pt can state name and place and can answer some questions. Dillard is draining clear yellow urine. Pt had a bath and linen change and tolerated well. Q2H turns provided t/o shift. No BM this shift. Bed alarm on for safety.
[2021-08-18 06:50] LABS: POC Glucose,Bedside 178 (70-110)
[2021-08-18 07:27] VITALS: BP 196/80; PULSE 88; RESP 16; TEMP 37.2; O2SAT 96
--- NOTE | 2021-08-18 08:23 | HMH.ACPN2 ---
<Lola Grewal - Last Filed: 08/18/21 08:23> Internal Medicine - PN: Subj *Date: 08/18/21 *Time: 08:23 Interval history: Mental status has improved. She is more alert and with some intelligible speech this morning. She says good morning , will answer yes/no questions, and will follow simple commands. She denies any pain. Exam Vital signs and Labs for Last 24 Hours: Temp Pulse Resp BP Pulse Ox 98.9 F 88 16 196/80 H 96 08/18/21 07:27 08/18/21 07:27 08/18/21 07:27 08/18/21 07:27 08/18/21 07:27 Laboratory Results - last 24 hr 08/17/21 14:11: POC Glucose 185 H 08/17/21 21:06: POC Glucose 186 H 08/18/21 02:13: POC Glucose 174 H 08/18/21 06:43: POC Glucose 178 H I & O for Last 24 hours: Intake & Output 08/15/21 08/16/21 08/17/21 08/18/21 11:59 11:59 11:59 11:59 Output Total 3350 / 3350 2700 / 2700 Balance -3350 / -3350 -2700 / -2700 Weight 270 lb 232 lb 5.875 oz 229 lb 0.964 oz Microbiology Reports for the Last 24 Hours: Microbiology 08/16/21 11:18 Urine,Catheterized Urine Culture - Preliminary NO GROWTH AFTER 24 HOURS - Constitutional no acute distress - *Routine HEENT Exam Head: Present: normocephalic, atraumatic Eye: Present: PERRL - *Routine Respiratory Exam Present: CTA bilaterally. Absent: respiratory distress, rhonchi, wheezes - *Routine Cardiovascular Exam Present: RRR - *Routine Abdominal Exam Present: soft, normoactive bowel sounds, obese. Absent: tenderness, distended - *Routine Extremities Exam Present: pulses intact. Absent: calf tenderness, extremity cold to touch Comments: trace BLE edema - *Routine Neurological Exam arouses to speech, will open eyes and follow simple commands, will answer yes/no questions Assessment and Plan (1) Declining functional status Status: Acute Category: Medical Code(s): R53.81 - Other malaise (2) Altered mental status Status: Acute Category: Medical Code(s): R41.82 - Altered mental status, unspecified (3) CAD (coronary artery disease) Status: Chronic Qualifiers: Coronary Disease-Associated Artery/Lesion type: [place] artery [place] vs. transplanted heart: [place] heart Associated angina: without angina Qualified Code(s): I25.10 - Atherosclerotic heart disease of [place] coronary artery without angina pectoris Category: Medical Code(s): I25.10 - Atherosclerotic heart disease of [place] coronary artery without angina pectoris (4) Diabetes mellitus Status: Chronic Qualifiers: Diabetes mellitus type: type 1 Diabetes mellitus complication status: with other specified complication Qualified Code(s): E10.69 - Type 1 diabetes mellitus with other specified complication Category: Medical Code(s): E11.9 - Type 2 diabetes mellitus without complications (5) History of CVA (cerebrovascular accident) Status: Chronic Category: Medical Code(s): Z86.73 - Personal history of transient ischemic attack (TIA), and cerebral infarction without residual deficits (6) Hypertension Status: Chronic Qualifiers: Hypertension type: essential hypertension Category: Medical Code(s): I10 - Essential (primary) hypertension (7) Hypothyroid Status: Chronic Qualifiers: Hypothyroidism type: unspecified Qualified Code(s): E03.9 - Hypothyroidism, unspecified Category: Medical Code(s): E03.9 - Hypothyroidism, unspecified - Assessment and plan all Dx Assessment and Plan for all problems:: Per Dr. Cotter. <Harry Cotter - Last Filed: 08/18/21 17:44> Internal Medicine - PN: Subj *Date: 08/18/21 *Time: 17:40 Exam Vital signs and Labs for Last 24 Hours: Temp Pulse Resp BP Pulse Ox 97.7 F 72 18 171/74 H 96 08/18/21 15:21 08/18/21 15:21 08/18/21 15:21 08/18/21 15:21 08/18/21 15:21 Laboratory Results - last 24 hr 08/17/21 14:11: POC Glucose 185 H 08/17/21 21:06: POC Glucose 186 H 08/18/21 02:1
--- NOTE | 2021-08-18 13:01 | DIET.NUTRFU ---
PO intakes 25%, BG moderate avg. 175.
[2021-08-18 15:21] VITALS: BP 171/74; PULSE 72; RESP 18; TEMP 36.5; O2SAT 96
[2021-08-18 19:31] VITALS: BP 175/65; PULSE 74; RESP 16; TEMP 37.1; O2SAT 97
[2021-08-19 01:56] LABS: POC Glucose,Bedside 141 (70-110)
[2021-08-19 04:00] VITALS: BP 169/54; PULSE 74; RESP 18; TEMP 36.7; O2SAT 93
[2021-08-19 05:28] VITALS: BMI 40.2
[2021-08-19 08:00] VITALS: BP 137/60; PULSE 62; RESP 16; TEMP 36.8; O2SAT 98
--- NOTE | 2021-08-19 08:50 | HMH.ACPN2 ---
Internal Medicine - PN: Subj *Date: 08/19/21 *Time: 08:57 Interval history: No concerns overnight. She is not sure she rested well but slept most of the day yesterday. She is sitting up in bed trying to eat some breakfast. Her son is at the bedside. Exam Vital signs and Labs for Last 24 Hours: Temp Pulse Resp BP Pulse Ox 98.0 F 74 18 169/54 H 93 L 08/19/21 04:00 08/19/21 04:00 08/19/21 04:00 08/19/21 04:00 08/19/21 04:00 Laboratory Results - last 24 hr 08/19/21 01:46: POC Glucose 141 H I & O for Last 24 hours: Intake & Output 08/16/21 08/17/21 08/18/21 08/19/21 11:59 11:59 11:59 11:59 Intake Total 40 / 40 790 / 790 Output Total 3350 / 3350 2700 / 2700 2225 / 2225 Balance -3350 / -3350 -2660 / -2660 -1435 / -1435 Weight 270 lb 232 lb 5.875 oz 229 lb 0.964 oz 227 lb 1.218 oz Microbiology Reports for the Last 24 Hours: Microbiology 08/16/21 11:18 Urine,Catheterized Urine Culture - Final NO GROWTH AFTER 48 HOURS Narrative: She is alert and oriented x3. Color is good. Lungs are clear anteriorly. Heart is distant but regular. Abdomen obese, soft, nontender. Extremities trace pedal edema. Assessment and Plan (1) Declining functional status Status: Acute Category: Medical Code(s): R53.81 - Other malaise (2) Altered mental status Status: Acute Qualifiers: Category: Medical Code(s): R41.82 - Altered mental status, unspecified (3) CAD (coronary artery disease) Status: Chronic Qualifiers: Coronary Disease-Associated Artery/Lesion type: [place] artery [place] vs. transplanted heart: [place] heart Associated angina: without angina Qualified Code(s): I25.10 - Atherosclerotic heart disease of [place] coronary artery without angina pectoris Category: Medical Code(s): I25.10 - Atherosclerotic heart disease of [place] coronary artery without angina pectoris (4) Diabetes mellitus Status: Chronic Qualifiers: Diabetes mellitus type: type 1 Diabetes mellitus complication status: with other specified complication Qualified Code(s): E10.69 - Type 1 diabetes mellitus with other specified complication Category: Medical Code(s): E11.9 - Type 2 diabetes mellitus without complications (5) History of CVA (cerebrovascular accident) Status: Chronic Category: Medical Code(s): Z86.73 - Personal history of transient ischemic attack (TIA), and cerebral infarction without residual deficits (6) Hypertension Status: Chronic Qualifiers: Hypertension type: essential hypertension Category: Medical Code(s): I10 - Essential (primary) hypertension (7) Hypothyroid Status: Chronic Qualifiers: Hypothyroidism type: unspecified Qualified Code(s): E03.9 - Hypothyroidism, unspecified Category: Medical Code(s): E03.9 - Hypothyroidism, unspecified (8) TIA (transient ischemic attack) Status: Acute Category: Medical Code(s): G45.9 - Transient cerebral ischemic attack, unspecified - Assessment and plan all Dx Assessment and Plan for all problems:: Neurologic symptoms resolving consistent with TIA. Blood pressure remains elevated and will increase lisinopril to 20 mg daily. She had a CTA of the neck 5 months ago showing moderate stenosis at the left carotid bifurcation otherwise no significant flow-limiting lesions. Continue aspirin, Plavix, statin. Encourage out of bed activity today.
[2021-08-19 15:45] VITALS: BP 133/47; PULSE 56; RESP 16; TEMP 36.8; O2SAT 96
[2021-08-19 20:00] VITALS: BP 147/73; PULSE 63; RESP 19; TEMP 37.1; O2SAT 96
[2021-08-20 04:00] VITALS: BP 144/70; PULSE 70; RESP 19; TEMP 36.9; O2SAT 93
[2021-08-20 04:37] VITALS: BMI 40.0
[2021-08-20 04:44] VITALS: BMI 40.2
[2021-08-20 08:00] VITALS: BP 142/54; PULSE 66; RESP 19; TEMP 36.6; O2SAT 96
[2021-08-20 08:00] LABS: Basophils % 0.9 % (0.1-2.0); Eosinophils # 0.1 K/mm3 (0.0-0.4); Eosinophils % 2.7 % (0.1-12.0); Hematocrit 27.4 % (37.0-47.0); Hemoglobin 8.8 g/dL (12.2-16.2); Lymphocytes # 1.8 K/mm3 (0.7-4.5); Lymphocytes % 38.2 % (10-50); Mean Corpuscular Hemoglobin 30.1 pg (27.0-31.2); Mean Platelet Volume 8.5 fl (7.4-10.4); Monocytes # 0.3 K/mm3 (0.1-1.0); Monocytes % 7.5 % (1.7-9.3); Neutrophils # 2.3 K/mm3 (1.8-7.8); Neutrophils % 50.7 % (37.0-80.0); Platelet Count 374 K/mm3 (142-424); Red Blood Count 2.91 M/mm3 (4.20-5.40); Red Cell Distribution Width 15.1 % (11.5-17.5); White Blood Count 4.6 K/mm3 (4.8-10.8)
[2021-08-20 08:30] LABS: Anion Gap 5.4 mEq/L (5-15); Blood Urea Nitrogen 17 mg/dl (7-17); Calcium 8.2 mg/dl (8.4-10.2); Carbon Dioxide 28 mmol/L (22.0-30.0); Chloride 111 mmol/L (98-107); Creatinine Clearance Estimated 35 mL/min (50-200); Estimated Glomerular Filt Rate 60 ml/min (>60); GFR (African American) 73 ML/MIN (>60); Glucose 151 mg/dl (74-100); Potassium 3.4 mmoL/L (3.5-5.1); Sodium 141 mmol/L (136-145)
--- NOTE | 2021-08-20 09:44 | HMH.ACPN2 ---
Internal Medicine - PN: Subj *Date: 08/20/21 *Time: 09:44 Interval history: No new concerns. She sat up in the chair for a few hours yesterday and tolerated this well although states her legs feel weak when she is up. Exam Vital signs and Labs for Last 24 Hours: Temp Pulse Resp BP Pulse Ox 97.9 F 66 19 142/54 H 96 08/20/21 08:00 08/20/21 08:00 08/20/21 08:00 08/20/21 08:00 08/20/21 08:00 Laboratory Results - last 24 hr 08/20/21 07:00: WBC 4.6 L, RBC 2.91 L, Hgb 8.8 L, Hct 27.4 L, MCV 94.0, MCH 30.1, MCHC 32.0, RDW 15.1, Plt Count 374, MPV 8.5, Neut % (Auto) 50.7, Lymph % (Auto) 38.2, [place] % (Auto) 7.5, Eos % (Auto) 2.7, Baso % (Auto) 0.9, Neut # (Auto) 2.3, Lymph # (Auto) 1.8, [place] # (Auto) 0.3, Eos # (Auto) 0.1, Baso # (Auto) 0.0 08/20/21 07:00: Sodium 141, Potassium 3.4 L, Chloride 111 H, Carbon Dioxide 28, Anion Gap 5.4, BUN 17, Creatinine 0.90, Estimated Creat Clear 35, Estimated GFR 60, Est GFR ( Amer) 73, Glucose 151 H, Calcium 8.2 L I & O for Last 24 hours: Intake & Output 08/17/21 08/18/21 08/19/21 08/20/21 11:59 11:59 11:59 11:59 Intake Total 40 / 40 910 / 910 600 / 600 Output Total 3350 / 3350 2700 / 2700 2225 / 2225 3200 / 3200 Balance -3350 / -3350 -2660 / -2660 -1315 / -1315 -2600 / -2600 Weight 232 lb 5.875 oz 229 lb 0.964 oz 227 lb 1.218 oz 227 lb 1.218 oz Narrative: She is very alert this morning. Back to baseline. Lungs are clear anteriorly. Heart tones are distant but regular. Abdomen is obese, soft, nondistended and nontender. Extremities with trace pedal edema. Assessment and Plan (1) Declining functional status Status: Acute Category: Medical Code(s): R53.81 - Other malaise (2) Altered mental status Status: Acute Qualifiers: Category: Medical Code(s): R41.82 - Altered mental status, unspecified (3) CAD (coronary artery disease) Status: Chronic Qualifiers: Coronary Disease-Associated Artery/Lesion type: [place] artery [place] vs. transplanted heart: [place] heart Associated angina: without angina Qualified Code(s): I25.10 - Atherosclerotic heart disease of [place] coronary artery without angina pectoris Category: Medical Code(s): I25.10 - Atherosclerotic heart disease of [place] coronary artery without angina pectoris (4) Diabetes mellitus Status: Chronic Qualifiers: Diabetes mellitus type: type 1 Diabetes mellitus complication status: with other specified complication Qualified Code(s): E10.69 - Type 1 diabetes mellitus with other specified complication Category: Medical Code(s): E11.9 - Type 2 diabetes mellitus without complications (5) History of CVA (cerebrovascular accident) Status: Chronic Category: Medical Code(s): Z86.73 - Personal history of transient ischemic attack (TIA), and cerebral infarction without residual deficits (6) Hypertension Status: Chronic Qualifiers: Hypertension type: essential hypertension Category: Medical Code(s): I10 - Essential (primary) hypertension (7) Hypothyroid Status: Chronic Qualifiers: Hypothyroidism type: unspecified Qualified Code(s): E03.9 - Hypothyroidism, unspecified Category: Medical Code(s): E03.9 - Hypothyroidism, unspecified (8) TIA (transient ischemic attack) Status: Acute Category: Medical Code(s): G45.9 - Transient cerebral ischemic attack, unspecified (9) Hypokalemia Status: Acute Category: Medical Code(s): E87.6 - Hypokalemia - Assessment and plan all Dx Assessment and Plan for all problems:: Encourage out of bed activity. Replace potassium. Note blood pressure has improved with increased dose of lisinopril. Plan discharged to [facility] tomorrow for ongoing therapy and arrange outpatient neurology follow-up.
[2021-08-20 16:00] VITALS: BP 162/49; PULSE 56; RESP 16; TEMP 36.8; O2SAT 98
--- NOTE | 2021-08-20 19:29 | PC.NURSE ---
SHE IS AOX4, ABLE TO MAKE NEEDS KNOWN TO STAFF. DENIES PAIN. SAFETY MEASURES IN PLACE.
[2021-08-20 20:00] VITALS: BP 151/69; PULSE 65; RESP 16; TEMP 36.9; O2SAT 98
[2021-08-20 21:16] LABS: POC Glucose,Bedside 152 (70-110)
[2021-08-20 21:16] LABS: POC Glucose,Bedside 271 (70-110)
[2021-08-20 21:16] LABS: POC Glucose,Bedside 284 (70-110)
[2021-08-20 21:16] LABS: POC Glucose,Bedside 142 (70-110)
[2021-08-20 21:16] LABS: POC Glucose,Bedside 273 (70-110)
[2021-08-20 21:16] LABS: POC Glucose,Bedside 290 (70-110)
[2021-08-20 21:16] LABS: POC Glucose,Bedside 151 (70-110)
[2021-08-20 21:17] LABS: POC Glucose,Bedside 287 (70-110)
--- NOTE | 2021-08-21 03:53 | PC.NURSE ---
A&OX4. TOLERATING RA WELL. PT HAS HAD NO C/O THUS FAR. HAS TOLERATED NEW IV PLACEMENT WELL. F/C PRESENT DRAINING BRIGHT AND CLEAR YELLOW URINE. PT BEING TURNED Q2H. SLEEPING T/O NIGHT. VSS WILL CONTINUE TO MONITOR.
[2021-08-21 04:00] VITALS: BP 152/62; PULSE 62; RESP 16; TEMP 36.6; O2SAT 96
[2021-08-21 04:32] VITALS: BMI 40.2
[2021-08-21 07:46] VITALS: BP 160/66; PULSE 63; RESP 20; TEMP 36.9; O2SAT 96
[2021-08-21 08:00] VITALS: PULSE 63; RESP 20; O2SAT 96
[2021-08-21 08:17] LABS: Coronavirus 19, PCR Not Detected (NotDetected); Influenza A, PCR Not Detected (NotDetected); Influenza B, PCR Not Detected (NotDetected)
--- NOTE | 2021-08-21 08:31 | HMH.ACPN2 ---
<Edie Sparks - Last Filed: 08/21/21 08:31> Internal Medicine - PN: Subj *Date: 08/21/21 *Time: 08:31 Interval history: Patient states she is doing okay this morning. She did sleep some during the night. She is eating as usual. She denies chest pain and shortness of breath. She has been up in the chair and tolerated well. Exam Vital signs and Labs for Last 24 Hours: Temp Pulse Resp BP Pulse Ox 98.4 F 63 20 160/66 H 96 08/21/21 07:46 08/21/21 07:46 08/21/21 07:46 08/21/21 07:46 08/21/21 07:46 Laboratory Results - last 24 hr 08/19/21 06:16: POC Glucose 152 H 08/19/21 14:42: POC Glucose 271 H 08/19/21 20:04: POC Glucose 273 H 08/20/21 01:31: POC Glucose 142 H 08/20/21 06:42: POC Glucose 151 H 08/20/21 07:00: Sodium 141, Potassium 3.4 L, Chloride 111 H, Carbon Dioxide 28, Anion Gap 5.4, BUN 17, Creatinine 0.90, Estimated Creat Clear 35, Estimated GFR 60, Est GFR ( Amer) 73, Glucose 151 H, Calcium 8.2 L 08/20/21 10:55: POC Glucose 284 H 08/20/21 16:22: POC Glucose 290 H 08/20/21 19:45: POC Glucose 287 H I & O for Last 24 hours: Intake & Output 08/18/21 08/19/21 08/20/21 08/21/21 11:59 11:59 11:59 11:59 Intake Total 40 / 40 910 / 910 600 / 600 720 / 720 Output Total 2700 / 2700 2225 / 2225 3200 / 3200 2600 / 2600 Balance -2660 / -2660 -1315 / -1315 -2600 / -2600 -1880 / -1880 Weight 229 lb 0.964 oz 227 lb 1.218 oz 227 lb 1.218 oz 227 lb - Constitutional no acute distress Comments: Conversant - *Routine Respiratory Exam Present: CTA bilaterally - *Routine Cardiovascular Exam Present: RRR - *Routine Abdominal Exam Present: soft, normoactive bowel sounds. Absent: tenderness, distended - *Routine Extremities Exam Present: edema. Absent: calf tenderness Comments: Can lift both legs up. - *Routine Neurological Exam Present: alert, oriented X3 Assessment and Plan (1) Declining functional status Status: Acute Category: Medical Code(s): R53.81 - Other malaise (2) Altered mental status Status: Acute Category: Medical Code(s): R41.82 - Altered mental status, unspecified (3) CAD (coronary artery disease) Status: Chronic Qualifiers: Coronary Disease-Associated Artery/Lesion type: [place] artery [place] vs. transplanted heart: [place] heart Associated angina: without angina Qualified Code(s): I25.10 - Atherosclerotic heart disease of [place] coronary artery without angina pectoris Category: Medical Code(s): I25.10 - Atherosclerotic heart disease of [place] coronary artery without angina pectoris (4) Diabetes mellitus Status: Chronic Qualifiers: Diabetes mellitus type: type 1 Diabetes mellitus complication status: with other specified complication Qualified Code(s): E10.69 - Type 1 diabetes mellitus with other specified complication Category: Medical Code(s): E11.9 - Type 2 diabetes mellitus without complications (5) History of CVA (cerebrovascular accident) Status: Chronic Category: Medical Code(s): Z86.73 - Personal history of transient ischemic attack (TIA), and cerebral infarction without residual deficits (6) Hypertension Status: Chronic Qualifiers: Hypertension type: essential hypertension Category: Medical Code(s): I10 - Essential (primary) hypertension (7) Hypothyroid Status: Chronic Qualifiers: Hypothyroidism type: unspecified Qualified Code(s): E03.9 - Hypothyroidism, unspecified Category: Medical Code(s): E03.9 - Hypothyroidism, unspecified (8) TIA (transient ischemic attack) Status: Acute Category: Medical Code(s): G45.9 - Transient cerebral ischemic attack, unspecified (9) Hypokalemia Status: Acute Category: Medical Code(s): E87.6 - Hypokalemia - Assessment and plan all Dx Assessment and Plan for all problems:: Patient will return back to skilled care today. See discharge summary. <Harry Cotter - Last Filed: 08/21/21 12:06> Internal Med
--- NOTE | 2021-08-21 09:18 | HMH.DCSUM ---
General - General Admission date:: 08/16/21 <Harry Cotter - 10/19/21 18:08> 08/16/21 <Edie Sparks - 08/21/21 09:48> Discharge date: 08/21/21 <Edie Sparks - 08/21/21 09:48> HPI HPI: Patient is a 80-year-old female with past medical history of dementia, prior strokes, congestive heart failure presenting to the ED from a care home for altered mental status. Unknown patient's baseline however patient does have significant history of dementia. Patient was more altered than baseline and EMS was called. Otherwise did not report any fevers, increased cough or shortness of breath. Patient unable to give any history symptoms just moans. Patient waas awake, opened eyes to pain, moans. Patient was hemodynamically stable, afebrile. Physical exam was remarkable for clear breath sounds bilaterally, soft nondistended, nontender abdomen. Differential included but was not limited to altered mental status secondary to intracranial process such as an intracranial bleed, stroke, infection including pneumonia, UTI. Volume overload secondary to CHF exacerbation, electrolyte abnormalities, functional decline. Given this a CBC, CMP, electrolytes, troponin, EKG, CT head, UA, urine cultures, chest x-ray were performed. Patient's lab work was unremarkable, chest x-ray shows atelectasis, UA is without any infection, CT head does not show any signs of a bleed or stroke. At this point patient remains altered. She was discussed with her care physician for an admission to the hospital. She was admitted to the hospital for further care and management. (above as per ER physician) <Edie Sparks - 08/21/21 09:48> Hospital Course Hospital Course: On admission to the floor patient was basically nonresponsive. She did react to stimuli and cry out something like Irma, Irma, Irma . Pupils were equal. She was admitted for monitoring overnight. The following day she aroused to voice and responded with , Irma, Irma, Irma . She did follow some commands. Ms Moctezuma was noted to have had 3 admissions during the past few months with similar neurologic presentation. On admission in March she was noted to have a small cerebellar infarct by MRI. During her last admission in June repeat MRI showed nothing acute although there was some motion artifact. But during this last admission she also was diagnosed with a urinary tract infection but was not septic.She was also noted that in the past her neurological symptoms typically resolved within 24 to 48 hours suggesting a TIA versus RIND syndrome. Urinalysis at this time was fairly unremarkable with eventual negative urine cultures. 08/18 her mental status had improved. She was more alert and had some intelligible and clear speech. She said good morning . She answerd questions yes and no. She followed simple commands. She was noted to clearly have improved. She denied any pain or nausea. Maintenance meds were initiated as well as diet. Symptoms again were noted to be consistent with a TIA. She was continued with her aspirin and her Plavix and a low-dose statin was added. She continued to improve. Blood pressure was elevated and lisinopril was increased to 20 mg daily. Out of bed activity was initiated Patient was able to sit up in the chair and tolerated this well although she had weak legs. Following were her labs on this date: 08/20/21 07:00: WBC 4.6 L, RBC 2.91 L, Hgb 8.8 L, Hct 27.4 L, MCV 94.0, MCH 30.1, MCHC 32.0, RDW 15.1, Plt Count 374, MPV 8.5, Neut % (Auto) 50.7, Lymph % (Auto) 38.2, [place] % (Auto) 7.5, Eos % (Auto) 2.7, Baso % (Auto) 0.9, Neut # (Auto) 2.3, Lymph # (Auto) 1.8, [place] # (Auto) 0.3, Eos # (Auto) 0.1, Baso # (Auto) 0.0 08/20/21 07:00: Sodium 141, Potassium 3.4 L, Chloride 111 H, Carbon Dioxide 28, Anion Gap 5.4, BUN 17, Creatinine 0.90, Estimated Creat Clear 35, Estimated GFR 60, Est GFR ( Amer) 73, Glucose 151 H, Calcium 8.2 L Again out of bed activity was encouraged.
[2021-08-21 20:46] LABS: POC Glucose,Bedside 164 (70-110)
[2021-08-21 20:46] LABS: POC Glucose,Bedside 201 (70-110)
== END 2021-08-21 10:50 ==
LOC: ER 11:53 → 2ND 14:04
PROVIDERS: Admitting Provider Family Medicine; Emergency Provider Emergency Medicine; Visit Provider Family Medicine
DX: R41.82 Altered mental status, unspecified (principal); Z20.822 Contact with and (suspected) exposure to COVID-19; E11.9 Type 2 diabetes mellitus without complications; Z79.4 Long term (current) use of insulin; E03.9 Hypothyroidism, unspecified; I11.0 Hypertensive heart disease with heart failure; I50.9 Heart failure, unspecified; Z86.718 Personal history of other venous thrombosis and embolism; Z79.02 Long term (current) use of antithrombotics/antiplatelets; I25.10 Atherosclerotic heart disease of native coronary artery without angina pectoris; Z86.73 Personal history of transient ischemic attack (TIA), and cerebral infarction without residual deficits
CPT/HCPCS: G0378; 36415; 70450; 71045; 80048; 80053; 80329; 81001; 82803; 82962; 83605; 83880; 84443; 84484; 85025; 87086; 93005; 99285; C9803; U0003; U0005

== ENCOUNTER 2021-09-03 15:25 | Inpatient (IN) | payer MEDICARE, OTHER, SELFPAY ==
[2021-09-03] VITALS (10 sets, daily range): BP systolic 173–190; BP diastolic 71–87; PULSE 63–80; RESP 16–18; TEMP 36.6–37.2; O2SAT 95–99; BMI 37.4; BMI 38.6; BMI 39.7
--- NOTE | 2021-09-03 15:33 | HMH.EDGENADL ---
ED Disposition Clinical Impression: Delirium Urinary tract infection Qualifiers: Urinary tract infection type: acute cystitis Hematuria presence: with hematuria Qualified Code(s): N30.01 - Acute cystitis with hematuria Disposition: Admitted as Observation Condition on Discharge: Fair Referrals: Harry Cotter MD [Primary Care Provider] - - Critical Care Critical Care Time: No Attestation: On , the high probability of a clinically significant, sudden or life threatening deterioration of the following system(s) required my full and direct attention, intervention and personal management. The time I documented below is in addition to time spent performing reported procedures but includes the following listed in this critical care notation. Medical Decision Making - Medical Records Medical records reviewed: Yes: I reviewed the patient's medical records. MR Comment: Reviewed discharge summary from recent admission 08/16/2021 through 08/21/2021 for altered mental status, similar presentation. Reviewed CT scan result from 08/16/2021 and MRI brain result from 07/20/2021. Also noted that patient has neurology appointment scheduled for tomorrow. - Wojciech Inquiry Pt receiving controlled substance: No Vital Signs: 09/03/21 15:25 Temperature 98 F Temperature Source Oral Pulse Rate [Radial] 63 Respiratory Rate 16 Blood Pressure [Right Arm] 181/80 H Blood Pressure Mean [Right Arm] 113 Blood Pressure Position [Right Arm] Sitting 02 Sat by Pulse Oximetry 96 Oxygen Delivery Method Room Air - Lab Data Lab Results 09/03/21 15:33: Urine Color Yellow, Urine Appearance Clear, Urine pH 8.0, Ur Specific [place] 1.010, Urine Protein Negative, Urine Glucose (UA) Negative, Urine Ketones Negative, Urine Blood 1+, Urine Nitrate Negative, Urine Bilirubin Negative, Urine Urobilinogen 0.2, Ur Leukocyte Esterase 3+ A, Urine RBC Occasional, Urine WBC Tntc, Ur Squamous Epith Cells Occasional, Urine Bacteria None 09/03/21 15:40: WBC 6.1, RBC 3.44 L, Hgb 10.1 L, Hct 31.7 L, MCV 91.9, MCH 29.3, MCHC 31.9, RDW 15.2, Plt Count 370, MPV 8.2, Neut % (Auto) 59.6, Lymph % (Auto) 31.0, [place] % (Auto) 7.0, Eos % (Auto) 1.7, Baso % (Auto) 0.8, Neut # (Auto) 3.6, Lymph # (Auto) 1.9, [place] # (Auto) 0.4, Eos # (Auto) 0.1, Baso # (Auto) 0.1 09/03/21 15:40: Sodium 143, Potassium 4.7, Chloride 109 H, Carbon Dioxide 30, Anion Gap 8.7, BUN 27 H, Creatinine 1.10 H, Estimated Creat Clear 63, Estimated GFR 48 L, Est GFR ( Amer) 58 L, Glucose 175 H, Calcium 9.7, Total Bilirubin 0.3, AST 38 H, ALT 22, Alkaline Phosphatase 141 H, Total Protein 6.8, Albumin 3.5, Globulin 3.3 H, Albumin/Globulin Ratio 1.1 09/03/21 15:40: Troponin I < 0.01 Result diagrams: 09/03/21 15:40 09/03/21 15:40 Orders (Tests/Meds): ED MEDICATIONS Generic Name Dose Route Start Last Admin Trade Name Freq PRN Reason Stop Dose Admin Ertapenem 1 gm/ Sodium 50 mls @ 100 mls/hr 09/03/21 17:15 Chloride IV 09/17/21 17:14 Q24H WILY ORDERS Category Date Time Status Troponin I Q3H Lab 09/03/21 19:30 Ordered Troponin I Q3H Lab 09/03/21 22:30 Ordered Urine Culture Stat Micro 09/03/21 15:33 Received - Radiology Data #1 Image(s): Chest Image Reviewed: Yes I have reviewed radiologist's interpretation PROCEDURE INFORMATION: Exam: XR Chest Exam date and time: 09/03/2021 3:38 PM Age: 80 years old Clinical indication: Other: AMS; Additional info: AMS, unknown history - patient not able to respond to questions TECHNIQUE: Imaging protocol: XR of the chest. Views: 1 view. COMPARISON: CR XR CHEST PORTABLE 08/16/2021 12:31 PM FINDINGS: Lungs: Decreased lung volumes. No consolidation. Pleural spaces: Unremarkable. No pleural effusion. No pneumothorax. Heart/Mediastinum: Unremarkable. No cardiomegaly. Bones/joints: Chronic bilateral proximal humerus deformities. IMPRESSION: No acute findings. Electronically signed by Michael
--- NOTE | 2021-09-03 15:38 | XR_ITS ---
PROCEDURE INFORMATION: Exam: XR Chest Exam date and time: 09/03/2021 3:38 PM Age: 80 years old Clinical indication: Other: AMS; Additional info: AMS, unknown history - patient not able to respond to questions TECHNIQUE: Imaging protocol: XR of the chest. Views: 1 view. COMPARISON: CR XR CHEST PORTABLE 08/16/2021 12:31 PM FINDINGS: Lungs: Decreased lung volumes. No consolidation. Pleural spaces: Unremarkable. No pleural effusion. No pneumothorax. Heart/Mediastinum: Unremarkable. No cardiomegaly. Bones/joints: Chronic bilateral proximal humerus deformities. IMPRESSION: No acute findings.
[2021-09-03 15:39] LABS: Microscopic, Urine URINE MICROSCOPIC (MICROSCOPIC)
--- NOTE | 2021-09-03 15:45 | CT_ITS ---
PROCEDURE INFORMATION: Exam: CT Head Without Contrast Exam date and time: 09/03/2021 3:45 PM Age: 80 years old Clinical indication: Altered mental status/memory loss; Confusion or disorientation; Additional info: Ams- unable to stay still or respond to questions TECHNIQUE: Imaging protocol: Computed tomography of the head without contrast. Radiation optimization: All CT scans at this facility use at least one of these dose optimization techniques: automated exposure control; mA and/or kV adjustment per patient size (includes targeted exams where dose is matched to clinical indication); or iterative reconstruction. COMPARISON: CT HEAD/BRAIN WO CON 08/16/2021 12:22 PM FINDINGS: Brain: There is age-appropriate cerebral atrophy. Severe changes of chronic small vessel ischemia within the cerebral white matter regions bilaterally. No acute infarct or hemorrhage. Cerebral ventricles: No ventriculomegaly. Paranasal sinuses: Visualized sinuses are unremarkable. No fluid levels. Mastoid air cells: Visualized mastoid air cells are well aerated. Bones/joints: Unremarkable. No acute fracture. Soft tissues: Unremarkable. IMPRESSION: No acute intracranial abnormality.
[2021-09-03 16:00] LABS: Basophils # 0.1 K/mm3 (0-0.2); Basophils % 0.8 % (0.1-2.0); Eosinophils # 0.1 K/mm3 (0.0-0.4); Eosinophils % 1.7 % (0.1-12.0); Hematocrit 31.7 % (37.0-47.0); Hemoglobin 10.1 g/dL (12.2-16.2); Lymphocytes # 1.9 K/mm3 (0.7-4.5); Mean Corpuscular HGB Conc 31.9 g/dL (31.8-35.4); Mean Corpuscular Hemoglobin 29.3 pg (27.0-31.2); Mean Corpuscular Volume 91.9 fl (81-99); Mean Platelet Volume 8.2 fl (7.4-10.4); Monocytes # 0.4 K/mm3 (0.1-1.0); Neutrophils # 3.6 K/mm3 (1.8-7.8); Neutrophils % 59.6 % (37.0-80.0); Platelet Count 370 K/mm3 (142-424); Red Blood Count 3.44 M/mm3 (4.20-5.40); Red Cell Distribution Width 15.2 % (11.5-17.5); White Blood Count 6.1 K/mm3 (4.8-10.8)
[2021-09-03 16:03] LABS: Appearance,Urine CLEAR (Clear); Bilirubin,Urine Negative (Negative); Blood, Urine 1+ (Negative); Color,Urine YELLOW (Yellow); Glucose,Urine (UA) Negative (Negative); Ketones,Urine Negative (Negative); Leukocyte Esterase,Urine 3+ (Negative); Nitrate,Urine Negative (Negative); Protein,Urine Negative (Negative); Urobilinogen,Urine 0.2 EU/dl (0.2)
--- NOTE | 2021-09-03 16:04 | ECG_ITS ---
APPROVED REPORT Exam: Resting ECG HR:66 bpm ECG Measurements Heart Rate 66 AXES OR 206 P 4 QRSd 98 QRS -30 QT 434 T 12 QTc 454 Conclusion Normal sinus rhythm Left axis deviation Incomplete right bundle branch block Abnormal ECG Electronically signed by : John Rosado MD 09/04/2021 21:05:41
[2021-09-03 16:22] LABS: RBC,Urine Occasional #/hpf (0-3); Squamous Epithelial Cell,Urine Occasional #/hpf (0-5); WBC,Urine TNTC #/hpf (0-3)
[2021-09-03 16:24] LABS: Chloride 109 mmol/L (98-107); Potassium 4.7 mmoL/L (3.5-5.1); Sodium 143 mmol/L (136-145)
[2021-09-03 16:27] LABS: Alanine Aminotransferase 22 U/L (12-78); Albumin Level 3.5 g/dl (3.5-5.0); Albumin/Globulin Ratio 1.1 (1.1-1.8); Alkaline Phosphatase 141 U/L (38-126); Anion Gap 8.7 mEq/L (5-15); Aspartate Amino Transferase 38 U/L (14-36); Bilirubin,Total 0.3 mg/dl (0.2-1.3); Blood Urea Nitrogen 27 mg/dl (7-17); Carbon Dioxide 30 mmol/L (22.0-30.0); Creatinine Clearance Estimated 63 mL/min (50-200); Estimated Glomerular Filt Rate 48 ml/min (>60); GFR (African American) 58 ML/MIN (>60); Globulin 3.3 g/dL (1.3-3.2); Total Protein,Serum 6.8 g/dl (6.3-8.2)
[2021-09-03 16:28] LABS: Calcium 9.7 mg/dl (8.4-10.2); Glucose 175 mg/dl (74-100)
[2021-09-03 16:58] LABS: Troponin I < 0.01 ng/ml (0.00-0.034)
[2021-09-03 17:51] LABS: Coronavirus 19, PCR Not Detected (NotDetected); Influenza A, PCR Not Detected (NotDetected); Influenza B, PCR Not Detected (NotDetected)
--- NOTE | 2021-09-03 19:59 | PC.NURSE ---
PT ARRIVED TO FLOOR VIA STRETCHER FROM ED W/STAFF @ 1958
[2021-09-03 20:52] LABS: POC Glucose,Bedside 177 (70-110)
[2021-09-04] VITALS (11 sets, daily range): BP systolic 100–220; BP diastolic 77–100; PULSE 60–83; RESP 16–20; TEMP 36.4–36.6; O2SAT 97–100; BMI 38.0
--- NOTE | 2021-09-04 02:40 | PC.NURSE ---
Patient responds to her name, no other verbal response is appropriate. Patient refused her night meds by stating i will not .
[2021-09-04 05:39] LABS: POC Glucose,Bedside 151 (70-110)
--- NOTE | 2021-09-04 07:30 | P.CONPHA_ITS ---
[facility] Pharmacy VTE Monitoring - Patient Demographics Admission date: 09/03/21 Report Date: 09/04/21 Time: 07:30 Allergies/Adverse Reactions: Patient Allergies Iodinated Contrast Media Allergy (Intermediate, Verified 07/26/21 13:19) naproxen [NAPROXEN] Allergy (Mild, Verified 07/26/21 13:19) Height: 1.63 m Weight: 100.879 kg Patient Problems: Current Active Problems UTI (urinary tract infection) (Acute) Delirium (Acute) - VTE Risk Labs: VTE Related Lab Results Hgb 10.1 g/dL (12.2-16.2) L 09/03/21 15:40 Hct 31.7 % (37.0-47.0) L 09/03/21 15:40 Plt Count 370 K/mm3 (142-424) 09/03/21 15:40 BUN 27 mg/dl (7-17) H 09/03/21 15:40 Creatinine 1.10 mg/dl (0.52-1.04) H 09/03/21 15:40 Estimated Creat Clear 63 mL/min (50-200) 09/03/21 15:40 VTE Score: 6 VTE Risk Level: Moderate Risk - Prophylaxis VTE Prophylaxis Ordered?: Yes Types of VTE Prophylaxis: TEDS Knee High Location of Applied Device: Bilateral Lower Extremeties
--- NOTE | 2021-09-04 07:41 | HMH.PHAINT ---
Verified home medications with [facility] and [facility]
--- NOTE | 2021-09-04 09:05 | HMH.HP ---
*Admission Date: 09/03/21 <SparksEdie 09/04/21 09:11> *Chief complaint: Altered mental status <ClareEdie 09/04/21 15:40> *History of present illness: Ms. Moctezuma is a 80-year-old female resident at [facility] with a history of dementia, prior strokes, diabetes mellitus congestive heart failure and urinary tract infections. She was brought to [facility] emergency room via ambulance with altered mental status for further evaluation. Patient has had several recent hospital admissions for the same. Last admission was 08/16 to 08/21/2021 at which time her mental status went from nonresponsive to alert and oriented. She is scheduled for a Neurology appointment this week. With evaluation in the emergency room CT of the head showed no acute findings. She was felt to have a UTI and was given ertapenem thenI have a. Other laboratory data shows a hemoglobin of 10.1 hematocrit 31.7 and white blood cell count of 6100. Blood chemistries show normal sodium and potassium with a BUN of 27 creatinine 1.10. Urine culture is pending. <Edie Sparks 09/04/21 09:11> [facility] History Medical History: Reports:: Atherosclerotic Heart Disease, Congestive Heart Failure, Congenital Heart Disease, Coronary Artery Disease, Cerebrovascular Accident, Deep Vein Thrombosis, Depression, Diabetes Mellitus Type 2, Gastroesophageal Reflux Disease(GERD), Hyperlipidemia, Hypertension, Urinary Tract Infection Denies:: Cancer, Diabetes Mellitus Type 1, Internal Pacemaker, MRSA, Seizures <Edie Sparks 09/04/21 09:11> *Have you ever received a pneumonia vaccine?: Yes <Edie Sparks 09/04/21 09:11> *Have you received a flu vaccine this season?: Yes <Edie Sparks 09/04/21 09:11> Other Medical History: Reports: Anemia, Arthritis, Hypothyroidism, Thyroid Disease <Edie Sparks 09/04/21 09:11> Other Surgeries: Yes: Appendectomy, Cardiac Catheterization, Cholecystectomy, Colonoscopy, Coronary Stent, EGD, Hernia Repair, Hysterectomy-Total, Skin Cancer Excision, Other. No: Pacemaker <Edie Sparks 09/04/21 09:11> Amputation: No <Edie Sparks 09/04/21 09:11> Fractures: Yes (L humerus, R humerus) <Sparks,Edie 09/04/21 09:11> - *Social History Smoking Status: Never smoker <Edie Sparks 09/04/21 09:11> Alcohol Intake: never <Edie Sparks 09/04/21 09:11> Alcohol Intake Frequency:: other <Edie Sparks 09/04/21 09:11> Substance Use Type: denies use <Edie Sparks 09/04/21 09:11> *Occupational Status:: retired <Edie Sparks 09/04/21 09:11> Housing: senior care <Edie Sparks 09/04/21 09:11> Household Members: other <Edie Sparks 09/04/21 09:11> *Travel in the last 8 weeks: None <Edie Sparks 09/04/21 09:11> - Psychiatric History Pschychiatric History:: Reports:: Depression <Edie Sparks 09/04/21 09:11> Family Hx:: Coronary Artery Disease <Edie Sparks 09/04/21 09:22> Review of Systems - Review of Systems Review of systems:: unable to obtain <Edie Sparks 09/04/21 09:22> Meds Home Medications Medication Instructions Recorded Confirmed Type cyanocobalamin (vitamin B-12) 1,000 mcg PO DAILY 02/10/18 09/04/21 History 1,000 mcg tablet pravastatin 80 mg tablet 80 mg PO HS 02/10/18 09/03/21 History Calcium Carbonate/Vitamin D3 1 tab PO DAILY 02/05/21 09/04/21 History [Calcium 600-Vit D3 800 Tablet] carvediloL [Carvedilol 6.25mg Tab] 6.25 mg PO BID 02/05/21 09/03/21 History Levothyroxine Sodium 150 mcg PO DAILY 02/08/21 09/03/21 History [Levothyroxine 150mcg (0.15mg) Tab] clopidogrel 75 mg tablet 75 mg PO DAILY tab 03/24/21 09/03/21 History Cetirizine HCl 10 mg PO DAILY 03/31/21 09/04/21 History Guaifenesin/Dextromethorphan 10 ml PO Q4HWA PRN 03/31/21 08/16/21 History [Guaifenesin-Dm 100-10 mg/5 ml] Pantoprazole Sodium [Protonix 40mg 40 mg PO DAILY 03/31/21 09/04/21 History tablet] Sennosides [Senna] 8.6 mg PO BIDP PRN 03/31/21 09/04/21 History
--- NOTE | 2021-09-04 09:27 | SW/DCPLANNER ---
Addendum entered by Kimber Browning 09/07/21 09:20: Updated patient information has been faxed to Shikha ramirez/ [facility]. This patient will require an additional COVID swab prior to returning. Patient could potentially discharge later today. Original Note: This patient currently resides at [facility] under private pay. I will follow up with Shikha at [facility] once patient is ready for discharge. Discharge date is unknown at this time.
[2021-09-04 11:56] LABS: POC Glucose,Bedside 120 (70-110)
[2021-09-04 15:49] LABS: POC Glucose,Bedside 118 (70-110)
--- NOTE | 2021-09-04 16:14 | PC.NURSE ---
Pt has been mostly non-verbal this shift. She occasionally mumbles incoherently. Eyes remain closed and pt localizes to pain. GCS is currently 10. No objective S/S of pain or SOA. Pt is on room air with sats. >90%. Lungs CTA. Generalized edema noted to extremities. Telemetry reveals NSR. Pt is incontinent and a brief is in place. Urine is clear and yellow. No BM thus far this shift. Pt has been turned/repositioned and provided oral care Q2H this shift. Pt has had no oral intake or PO medications today. FSBS results have been 120 and 118, neither of which have required insulin coverage per sliding scale. 20 G peripheral IV in the RT AC is patent and infusing NS @ 75 ML/HR. VSS. Call light within reach. Will continue to monitor.
[2021-09-04 19:53] LABS: POC Glucose,Bedside 148 (70-110)
--- NOTE | 2021-09-04 21:00 | ECG_ITS ---
APPROVED REPORT Exam: Resting ECG HR:81 bpm ECG Measurements Heart Rate 81 AXES VT 184 P 58 QRSd 94 QRS -43 QT 412 T 42 QTc 478 Conclusion Normal sinus rhythm Left axis deviation Nonspecific ST abnormality Abnormal ECG Electronically signed by : John Rosado MD 09/05/2021 21:50:51
[2021-09-05] VITALS (9 sets, daily range): BP systolic 158–194; BP diastolic 70–85; PULSE 68–80; RESP 16–20; TEMP 36.6–37.3; O2SAT 91–100; BMI 37.8
--- NOTE | 2021-09-05 02:56 | PC.NURSE ---
Patient still remains somewhat confused at this time and still refusing to take her PO medications, as the patient simply states no . The patient's blood pressure at 1999 was 196/92 manually. This RN rechecked her around 2100 BP and found that her BP had increased to 220/100 with manual auscultation. Patient was yelling out help Patient was asked what is wrong? ; patient doesn't respond and continues to yell. Patient is asked Are you in pain? ; patient response is yes . Patient is asked where does it hurt? ; patient states my chest . An EKG was obtained and taken down for the ER MD to read. mail caller MD was paged and notified. Patient's BP has lowered since the beginning of the shift. No other complaints voiced. Patient has had to be redirected in her yelling out, patient never voices that she wants anything or is in any type of distress when this RN goes to check on her. Patient is re-educated on the use of her call light if she needs something.
[2021-09-05 05:24] LABS: POC Glucose,Bedside 159 (70-110)
[2021-09-05 07:00] LABS: POC Glucose,Bedside 140 (70-110)
--- NOTE | 2021-09-05 09:10 | HMH.ACPN2 ---
<Edie Sparks - Last Filed: 09/05/21 09:10> Internal Medicine - PN: Subj *Date: 09/05/21 *Time: 09:10 Interval history: Patient is alert and oriented today. She knows where she is and her physician, Dr. Cotter. She is hungry and would like to eat breakfast but does not have her teeth. She is worried that they are lost. She also ask what is happened to her and if she had another level stroke. She denies chest pain, shortness of breath, abdominal pain and nausea. Urine culture results are pending. Exam Vital signs and Labs for Last 24 Hours: Temp Pulse Resp BP Pulse Ox 99.0 F 74 18 158/72 H 95 09/05/21 08:00 09/05/21 08:00 09/05/21 08:00 09/05/21 08:00 09/05/21 08:00 Laboratory Results - last 24 hr 09/04/21 11:45: POC Glucose 120 H 09/04/21 15:42: POC Glucose 118 H 09/04/21 19:37: POC Glucose 148 H 09/05/21 05:17: POC Glucose 159 H 09/05/21 06:37: POC Glucose 140 H I & O for Last 24 hours: Intake & Output 09/02/21 09/03/21 09/04/21 09/05/21 11:59 11:59 11:59 11:59 Intake Total 1754 / 1754 Output Total 0 / 0 750 / 750 Balance 0 / 0 1004 / 1004 Weight 222 lb 6.4 oz 221 lb 11.2 oz Microbiology Reports for the Last 24 Hours: Microbiology 09/03/21 15:33 Urine,Clean Catch Urine Culture - Preliminary - Constitutional no acute distress Comments: Does assist with exam. Sat up in the bed with very little help. - *Routine Respiratory Exam Present: CTA bilaterally (Anteriorly and posteriorly) - *Routine Cardiovascular Exam Present: RRR (Monitor showing atrial fibrillation with a very regular rate in the 70s and 80s) - *Routine Abdominal Exam Present: soft, normoactive bowel sounds. Absent: tenderness, distended - *Routine Extremities Exam Present: pulses intact. Absent: edema, calf tenderness - *Routine Neurological Exam Present: alert, oriented X3 Assessment and Plan (1) UTI (urinary tract infection) Status: Acute Qualifiers: Urinary tract infection type: acute cystitis Hematuria presence: with hematuria Qualified Code(s): N30.01 - Acute cystitis with hematuria Category: Medical Code(s): N39.0 - Urinary tract infection, site not specified (2) Altered mental status Status: Acute Category: Medical Code(s): R41.82 - Altered mental status, unspecified (3) Bilateral lower extremity edema Status: Acute Category: Medical Code(s): R60.0 - Localized edema (4) Anemia Status: Chronic Qualifiers: Anemia type: unspecified type Qualified Code(s): D64.9 - Anemia, unspecified Category: Medical Code(s): D64.9 - Anemia, unspecified (5) Diabetes mellitus Status: Chronic Qualifiers: Diabetes mellitus type: type 1 Diabetes mellitus complication status: with other specified complication Qualified Code(s): E10.69 - Type 1 diabetes mellitus with other specified complication Category: Medical Code(s): E11.9 - Type 2 diabetes mellitus without complications (6) History of CVA (cerebrovascular accident) Status: Chronic Category: Medical Code(s): Z86.73 - Personal history of transient ischemic attack (TIA), and cerebral infarction without residual deficits (7) Renal insufficiency Status: Chronic Category: Medical Code(s): N28.9 - Disorder of kidney and ureter, unspecified - Assessment and plan all Dx Assessment and Plan for all problems:: Pending urine culture results. We will continue with current antibiotics. Nursing will be looking for her teeth and assist with eating. <Harry Cotter - Last Filed: 09/05/21 13:11> Internal Medicine - PN: Subj *Date: 09/05/21 *Time: 13:10 Exam Vital signs and Labs for Last 24 Hours: Temp Pulse Resp BP Pulse Ox 97.8 F 68 17 163/75 H 96 09/05/21 11:42 09/05/21 11:42 09/05/21 11:42 09/05/21 11:42 09/05/21 11:42 Laboratory Results - last 24 hr 09/04/21 15:42: POC Glucose 118 H 09/04/21 19:37: POC Glucose 148 H
--- NOTE | 2021-09-05 13:40 | DIET.NUTRFU ---
RD observed some of lunch today, she is requiring extensive setup with meals. She shows no motivation to eat, she also appears to have difficulty coordinating her hands to mouth. She did have her teeth in and claims she can tolerate regular consistency. Based on poor meal intake ordered Glucerna 1 carton BID with lunch and dinner to best met needs.
--- NOTE | 2021-09-05 17:16 | PC.NURSE ---
Patient is non tele and on room air. Patient is up with assist times two. Alert and oriented times 4. Purewick in use. Bed in lowest position and phone and call light in reach. Will continue to monitor.
[2021-09-05 20:00] LABS: POC Glucose,Bedside 222 (70-110)
[2021-09-05 21:40] LABS: Occult Blood,Stool Positive (Negative)
[2021-09-06] VITALS (8 sets, daily range): BP systolic 120–161; BP diastolic 38–66; PULSE 60–70; RESP 16–22; TEMP 36.5–37; O2SAT 90–98; BMI 37.4
--- NOTE | 2021-09-06 04:44 | PC.NURSE ---
Patient has remained A&Ox4 throughout this RN's shift. No acute event have occurred thus far.
[2021-09-06 05:38] LABS: POC Glucose,Bedside 224 (70-110)
[2021-09-06 06:47] LABS: Basophils % 0.6 % (0.1-2.0); Eosinophils # 0.1 K/mm3 (0.0-0.4); Eosinophils % 2.7 % (0.1-12.0); Hematocrit 25.9 % (37.0-47.0); Hemoglobin 8.2 g/dL (12.2-16.2); Lymphocytes # 1.8 K/mm3 (0.7-4.5); Lymphocytes % 41.2 % (10-50); Mean Corpuscular HGB Conc 31.8 g/dL (31.8-35.4); Mean Corpuscular Hemoglobin 29.8 pg (27.0-31.2); Mean Corpuscular Volume 93.9 fl (81-99); Mean Platelet Volume 8.4 fl (7.4-10.4); Monocytes # 0.3 K/mm3 (0.1-1.0); Monocytes % 7.8 % (1.7-9.3); Neutrophils # 2.1 K/mm3 (1.8-7.8); Neutrophils % 47.6 % (37.0-80.0); Platelet Count 304 K/mm3 (142-424); Red Blood Count 2.76 M/mm3 (4.20-5.40); Red Cell Distribution Width 15.4 % (11.5-17.5); White Blood Count 4.4 K/mm3 (4.8-10.8)
--- NOTE | 2021-09-06 08:07 | HMH.ACPN2 ---
<Edie Sparks - Last Filed: 09/06/21 08:07> Internal Medicine - PN: Subj *Date: 09/06/21 *Time: 08:07 Interval history: Patient found her teeth and she is able to eat although she is not hungry. She denies nausea, chest pain, shortness of breath, and abdominal pain. She states she slept a little last night. She has not been out of bed. Urine culture results are pending. CBC with a white blood cell count of 4.4 with a hemoglobin of 8.2 and hematocrit of 25.9. Blood was noted in her stool and tested for occult blood which was positive. Exam Vital signs and Labs for Last 24 Hours: Temp Pulse Resp BP Pulse Ox 97.7 F 62 22 124/38 L 98 09/06/21 08:00 09/06/21 08:00 09/06/21 08:00 09/06/21 08:00 09/06/21 08:00 Laboratory Results - last 24 hr 09/05/21 19:41: POC Glucose 222 H 09/05/21 19:46: Stool Occult Blood Positive A 09/06/21 05:28: POC Glucose 224 H 09/06/21 06:15: WBC 4.4 L D, RBC 2.76 L, Hgb 8.2 L, Hct 25.9 L, MCV 93.9, MCH 29.8, MCHC 31.8, RDW 15.4, Plt Count 304, MPV 8.4, Neut % (Auto) 47.6, Lymph % (Auto) 41.2, [place] % (Auto) 7.8, Eos % (Auto) 2.7, Baso % (Auto) 0.6, Neut # (Auto) 2.1, Lymph # (Auto) 1.8, [place] # (Auto) 0.3, Eos # (Auto) 0.1, Baso # (Auto) 0.0 I & O for Last 24 hours: Intake & Output 09/03/21 09/04/21 09/05/21 09/06/21 11:59 11:59 11:59 11:59 Intake Total 1754 / 1754 360 / 360 Output Total 0 / 0 1450 / 1450 1150 / 1150 Balance 0 / 0 304 / 304 -790 / -790 Weight 222 lb 6.4 oz 221 lb 11.149 oz 219 lb 6.4 oz Microbiology Reports for the Last 24 Hours: Microbiology 09/03/21 15:33 Urine,Clean Catch Urine Culture - Preliminary - Constitutional no acute distress - *Routine Respiratory Exam Present: CTA bilaterally - *Routine Cardiovascular Exam Present: murmur, irregular rhythm - *Routine Abdominal Exam Present: soft, normoactive bowel sounds. Absent: tenderness - *Routine Extremities Exam Present: edema (Of bilateral feet.), pulses intact - *Routine Neurological Exam Present: alert, oriented X3 Assessment and Plan (1) UTI (urinary tract infection) Status: Acute Qualifiers: Urinary tract infection type: acute cystitis Hematuria presence: with hematuria Qualified Code(s): N30.01 - Acute cystitis with hematuria Category: Medical Code(s): N39.0 - Urinary tract infection, site not specified (2) Altered mental status Status: Acute Category: Medical Code(s): R41.82 - Altered mental status, unspecified (3) Bilateral lower extremity edema Status: Acute Category: Medical Code(s): R60.0 - Localized edema (4) Anemia Status: Chronic Qualifiers: Anemia type: unspecified type Qualified Code(s): D64.9 - Anemia, unspecified Category: Medical Code(s): D64.9 - Anemia, unspecified (5) Diabetes mellitus Status: Chronic Qualifiers: Diabetes mellitus type: type 1 Diabetes mellitus complication status: with other specified complication Qualified Code(s): E10.69 - Type 1 diabetes mellitus with other specified complication Category: Medical Code(s): E11.9 - Type 2 diabetes mellitus without complications (6) History of CVA (cerebrovascular accident) Status: Chronic Category: Medical Code(s): Z86.73 - Personal history of transient ischemic attack (TIA), and cerebral infarction without residual deficits (7) Renal insufficiency Status: Chronic Category: Medical Code(s): N28.9 - Disorder of kidney and ureter, unspecified - Assessment and plan all Dx Assessment and Plan for all problems:: Patient remains alert and oriented. Drop in hemoglobin with hydration. We will continue to monitor. Also stool for occult blood is positive on Plavix;tepenem will discuss with Dr. Cotter. We will continue with ertapenem for UTI with pending cultures. We will consult physical therapy for out of bed activity. <Harry Cotter - Last Filed: 09/06/21 23:17> Internal Medicine - PN: Subj *D
[2021-09-06 13:56] LABS: Hematocrit 26.9 % (37.0-47.0); Hemoglobin 8.4 g/dL (12.2-16.2)
--- NOTE | 2021-09-06 14:13 | HMH.PTEV ---
Physical Therapy Evaluation Rehab PT IP Evaluation Start: 09/06/21 08:14 Freq: ONCE Status: Active Protocol: Document 09/06/21 13:58 PWLAUREN (Rec: 09/06/21 14:12 PWLAUREN [id number]) Subjective/History History History This is the inital evaluation for Dewayne Moctezuma. Pt is an 80 y/o female admitted to [facility] from [facility] for altered mental status . Pt found to have UTI. Pt has hx of dementia, prior strokes , diabetes mellitus congestive heart failure and urinary tract infections. - note done by Marilyn Sal, SPT Subjective Subjective Pt states she came from half-way. Pt states she uses a walker to get around but still does not walk much. Pt has trouble with memory. Rehab PT IP Eval Objective Appearance Patient Behavior Appropriate,Cooperative Patient Orientation Place,Name,Birthday,Year Difficulty following instructions none Speech Pattern Clear,Appropriate,Coherent Ambulation Patient Able to Ambulate No Balance Ability to Arise Unable Sitting Balance Steady, safe Standing Balance Unsteady Dynamic Standing Balance Ability Poor Transfers Bed Transfer Ability Maximum x 2 (75% assist) Sit to Stand Bed Transfer Ability Moderate x 2 (50% assist) Rehab PT IP prob,goals,plan Problems Date of Evaluation: 09/06/21 PT IP Problems Bed Mobility,Transfers,Gait, Balance,Self care,Safety Rehab Potential Rehab Potential Fair Equipment Needs Assistive Devices Rolling / Wheeled Walker Plan PT Intervention Plan Bed Mobility,Transfers,Gait, Balance,Self care,Safety, Therapeutic Exercise PT Plan Frequency BID Duration LOS Discharge Goals Bed Transfer Ability Maximum x 2 (75% assist) Sit to Stand Chair Transfer Ability Moderate x 2 (50% assist) Ambulation Assistive Device Rolling Walker Ambulation Distance (feet) 2 Discharge Plan PT Discharge Plan Pt will benefit from skilled therapy while at [facility] to aid in avoidance of further decline in skills such as bed mobility , transfers, ambulation, and
--- NOTE | 2021-09-06 18:12 | PC.NURSE ---
Patient is non tele and on room air. Patient is alert and oriented times. 4. Assist times two. Patient had one bloody stool today. Purewick in place. Patient up in room with PT. Call light and phone in reach and bed in lowest position. Will continue to monitor.
[2021-09-06 19:26] LABS: POC Glucose,Bedside 285 (70-110)
[2021-09-06 20:12] LABS: POC Glucose,Bedside 296 (70-110)
[2021-09-07] VITALS (23 sets, daily range): BP systolic 114–169; BP diastolic 44–76; PULSE 48–62; RESP 16–18; TEMP 36.3–36.9; O2SAT 95–100; BMI 38.8
[2021-09-07 08:33] LABS: Hemoglobin 7.9 g/dL (12.2-16.2)
--- NOTE | 2021-09-07 08:38 | HMH.ACPN2 ---
<Meg Lopez - Last Filed: 09/07/21 08:38> Internal Medicine - PN: Subj *Date: 09/07/21 *Time: 08:38 Interval history: Patient states she is feeling a little bit better today. She did sleep well last night and ate a good breakfast. She states they were not able to get her up in a chair yesterday because she was too weak. She denies any pain today and just states she is tired. Exam Vital signs and Labs for Last 24 Hours: Temp Pulse Resp BP Pulse Ox 97.8 F 62 16 114/59 L 97 09/07/21 04:00 09/07/21 04:00 09/07/21 04:00 09/07/21 04:00 09/07/21 04:00 Laboratory Results - last 24 hr 09/03/21 15:33: Urine Color Yellow, Urine Appearance Clear, Urine pH 8.0, Ur Specific [place] 1.010, Urine Protein Negative, Urine Glucose (UA) Negative, Urine Ketones Negative, Urine Blood 1+, Urine Nitrate Negative, Urine Bilirubin Negative, Urine Urobilinogen 0.2, Ur Leukocyte Esterase 3+ A, Urine RBC Occasional, Urine WBC Tntc, Ur Squamous Epith Cells Occasional, Urine Bacteria None 09/06/21 13:50: Hgb 8.4 L, Hct 26.9 L 09/06/21 16:26: POC Glucose 285 H 09/06/21 19:52: POC Glucose 296 H I & O for Last 24 hours: Intake & Output 09/04/21 09/05/21 09/06/21 09/07/21 11:59 11:59 11:59 11:59 Intake Total 1754 / 1754 360 / 360 4663 / 4663 Output Total 0 / 0 1450 / 1450 1150 / 1150 1500 / 1500 Balance 0 / 0 304 / 304 -790 / -790 3163 / 3163 Weight 222 lb 6.4 oz 221 lb 11.149 oz 219 lb 6.4 oz 227 lb 8 oz Microbiology Reports for the Last 24 Hours: Microbiology 09/03/21 15:33 Urine,Clean Catch Urine Culture - Preliminary Gram Negative Rods - Constitutional no acute distress - *Routine Respiratory Exam Present: CTA bilaterally - *Routine Cardiovascular Exam Present: irregular rhythm - *Routine Abdominal Exam Present: soft, normoactive bowel sounds. Absent: tenderness - *Routine Extremities Exam Present: edema (Trace bilateral lower extremity). Absent: cyanosis, clubbing - *Routine Skin Exam Present: warm. Absent: rash - *Routine Neurological Exam Present: alert, oriented X3 Assessment and Plan (1) UTI (urinary tract infection) Status: Acute Qualifiers: Urinary tract infection type: acute cystitis Hematuria presence: with hematuria Qualified Code(s): N30.01 - Acute cystitis with hematuria Category: Medical Code(s): N39.0 - Urinary tract infection, site not specified (2) Altered mental status Status: Acute Category: Medical Code(s): R41.82 - Altered mental status, unspecified (3) Bilateral lower extremity edema Status: Acute Category: Medical Code(s): R60.0 - Localized edema (4) Anemia Status: Chronic Qualifiers: Anemia type: unspecified type Qualified Code(s): D64.9 - Anemia, unspecified Category: Medical Code(s): D64.9 - Anemia, unspecified (5) Diabetes mellitus Status: Chronic Qualifiers: Diabetes mellitus type: type 1 Diabetes mellitus complication status: with other specified complication Qualified Code(s): E10.69 - Type 1 diabetes mellitus with other specified complication Category: Medical Code(s): E11.9 - Type 2 diabetes mellitus without complications (6) History of CVA (cerebrovascular accident) Status: Chronic Category: Medical Code(s): Z86.73 - Personal history of transient ischemic attack (TIA), and cerebral infarction without residual deficits (7) Renal insufficiency Status: Chronic Category: Medical Code(s): N28.9 - Disorder of kidney and ureter, unspecified - Assessment and plan all Dx Assessment and Plan for all problems:: Will await urine culture results and continue to work with physical therapy. <Harry Cotter - Last Filed: 09/07/21 11:22> Internal Medicine - PN: Subj *Date: 09/07/21 *Time: 11:22 Exam Vital signs and Labs for Last 24 Hours: Temp Pulse Resp BP Pulse Ox 98.2 F 57 L 18 135/58 L 97 09/07/21 08:00 09/07/21
[2021-09-07 10:01] LABS: Coronavirus 19, PCR Not Detected (NotDetected); Influenza A, PCR Not Detected (NotDetected); Influenza B, PCR Not Detected (NotDetected)
--- NOTE | 2021-09-07 10:49 | P.PN_ITS ---
Internal Medicine - PN: Subj *Date: 09/07/21 *Time: 10:49 Exam Vital signs and Labs for Last 24 Hours: Temp Pulse Resp BP Pulse Ox 98.2 F 57 L 18 135/58 L 97 09/07/21 08:00 09/07/21 08:00 09/07/21 08:00 09/07/21 08:00 09/07/21 08:00 Laboratory Results - last 24 hr 09/03/21 15:33: Urine Color Yellow, Urine Appearance Clear, Urine pH 8.0, Ur Specific [place] 1.010, Urine Protein Negative, Urine Glucose (UA) Negative, Urine Ketones Negative, Urine Blood 1+, Urine Nitrate Negative, Urine Bilirubin Negative, Urine Urobilinogen 0.2, Ur Leukocyte Esterase 3+ A, Urine RBC Occasional, Urine WBC Tntc, Ur Squamous Epith Cells Occasional, Urine Bacteria None 09/06/21 13:50: Hgb 8.4 L, Hct 26.9 L 09/06/21 16:26: POC Glucose 285 H 09/06/21 19:52: POC Glucose 296 H 09/07/21 08:20: Hgb 7.9 L, Hct 25.0 L 09/07/21 09:52: SARS-CoV-2 (PCR) Not detected, Influenza A Untype (PCR) Not detected, Influenza Type B (PCR) Not detected 09/07/21 10:28: Crossmatch (AHG) See Detail I & O for Last 24 hours: Intake & Output 09/04/21 09/05/21 09/06/21 09/07/21 23:59 23:59 23:59 23:59 Intake Total 1634 / 1634 240 / 240 600 / 600 4663 / 4663 Output Total 0 / 250 1850 / 2600 1950 / 2250 300 / 300 Balance 1634 / 1384 -1610 / -2360 -1350 / -1650 4363 / 4363 Weight 100.879 kg 100.56 kg 99.518 kg 103.192 kg Microbiology Reports for the Last 24 Hours: Microbiology 09/03/21 15:33 Urine,Clean Catch Urine Culture - Final Proteus mirabilis Assessment and Plan (1) UTI (urinary tract infection) Status: Acute Qualifiers: Urinary tract infection type: acute cystitis Hematuria presence: with hematuria Qualified Code(s): N30.01 - Acute cystitis with hematuria Category: Medical Code(s): N39.0 - Urinary tract infection, site not specified (2) Altered mental status Status: Acute Qualifiers: Category: Medical Code(s): R41.82 - Altered mental status, unspecified (3) Bilateral lower extremity edema Status: Acute Category: Medical Code(s): R60.0 - Localized edema (4) Anemia Status: Chronic Qualifiers: Anemia type: unspecified type Qualified Code(s): D64.9 - Anemia, unspecified Category: Medical Code(s): D64.9 - Anemia, unspecified (5) Diabetes mellitus Status: Chronic Qualifiers: Diabetes mellitus type: type 1 Diabetes mellitus complication status: with other specified complication Qualified Code(s): E10.69 - Type 1 diabetes mellitus with other specified complication Category: Medical Code(s): E11.9 - Type 2 diabetes mellitus without complications (6) History of CVA (cerebrovascular accident) Status: Chronic Category: Medical Code(s): Z86.73 - Personal history of transient ischemic attack (TIA), and cerebral infarction without residual deficits (7) Renal insufficiency Status: Chronic Category: Medical Code(s): N28.9 - Disorder of kidney and ureter, unspecified The patient's infection will respond to the chosen ABx?: Yes Is the patient receiving the right drug, dose, and route?: Yes Could a more targeted ABx be ordered?: No (INVANZ CHANGED TO BACTRIM)
[2021-09-07 20:39] LABS: Hematocrit 31.3 % (37.0-47.0)
[2021-09-07 20:59] LABS: Hemoglobin 10.5 g/dL (12.2-16.2)
[2021-09-08] VITALS: BP 148/61; PULSE 65; RESP 18; TEMP 36.7; O2SAT 96
[2021-09-08 04:00] VITALS: BP 108/70; PULSE 51; RESP 18; TEMP 36.8; O2SAT 95
[2021-09-08 05:00] VITALS: BMI 39.8
--- NOTE | 2021-09-08 05:01 | PC.NURSE ---
pt rested well through the night, pt given tylenol for headache with relief x1, pt states feels better after transfusion and noted h/h improved after 2 units, pt axo, pt requires total assistance with turning and positioning in bed. bilateral edema pitting noted, lungs clear and diminished and remains on room air with o2 sats in the 90's
[2021-09-08 05:31] LABS: POC Glucose,Bedside 210 (70-110)
[2021-09-08 07:19] LABS: Chloride 111 mmol/L (98-107); Sodium 139 mmol/L (136-145)
[2021-09-08 07:20] LABS: Potassium 4.1 mmoL/L (3.5-5.1)
[2021-09-08 07:23] LABS: Anion Gap 8.1 mEq/L (5-15); Blood Urea Nitrogen 15 mg/dl (7-17); Calcium 7.7 mg/dl (8.4-10.2); Carbon Dioxide 24 mmol/L (22.0-30.0); Creatinine Clearance Estimated 74 mL/min (50-200); Estimated Glomerular Filt Rate 69 ml/min (>60); GFR (African American) 83 ML/MIN (>60); Glucose 182 mg/dl (74-100)
[2021-09-08 07:45] VITALS: BP 127/51; PULSE 60; RESP 17; TEMP 36.6; O2SAT 100
[2021-09-08 08:00] VITALS: O2SAT 100
--- NOTE | 2021-09-08 08:00 | HMH.ACPN2 ---
<Lola Grewal - Last Filed: 09/08/21 08:04> Internal Medicine - PN: Subj *Date: 09/08/21 *Time: 08:04 Interval history: She is sitting up in bed eating breakfast. She is alert and oriented and remembers me from her prior admission. She is feeling better and has no complaint. Exam Vital signs and Labs for Last 24 Hours: Temp Pulse Resp BP Pulse Ox 97.9 F 60 17 127/51 L 100 09/08/21 07:45 09/08/21 07:45 09/08/21 07:45 09/08/21 07:45 09/08/21 07:45 Laboratory Results - last 24 hr 09/07/21 08:20: Hgb 7.9 L, Hct 25.0 L 09/07/21 09:52: SARS-CoV-2 (PCR) Not detected, Influenza A Untype (PCR) Not detected, Influenza Type B (PCR) Not detected 09/07/21 10:28: Blood Type A Positive, Antibody Screen Negative, Crossmatch (AHG) See Detail 09/07/21 11:28: POC Glucose 210 H 09/07/21 20:03: Hgb 10.5 L D, Hct 31.3 L 09/08/21 06:54: Sodium 139, Potassium 4.1, Chloride 111 H, Carbon Dioxide 24, Anion Gap 8.1, BUN 15, Creatinine 0.80, Estimated Creat Clear 74, Estimated GFR 69, Est GFR ( Amer) 83, Glucose 182 H, Calcium 7.7 L I & O for Last 24 hours: Intake & Output 09/05/21 09/06/21 09/07/21 09/08/21 11:59 11:59 11:59 11:59 Intake Total 1754 / 1754 360 / 360 5023 / 5023 360 / 360 Output Total 1450 / 1450 1150 / 1150 1500 / 1500 1175 / 1175 Balance 304 / 304 -790 / -790 3523 / 3523 -815 / -815 Weight 221 lb 11.149 oz 219 lb 6.4 oz 227 lb 8 oz 233 lb 6.4 oz Microbiology Reports for the Last 24 Hours: Microbiology 09/03/21 15:33 Urine,Clean Catch Urine Culture - Final Proteus mirabilis - Constitutional no acute distress - *Routine HEENT Exam Head: Present: normocephalic ENT: Present: mucous membranes moist - *Routine Respiratory Exam Present: CTA bilaterally - *Routine Cardiovascular Exam Present: RRR - *Routine Abdominal Exam Present: soft, normoactive bowel sounds, obese. Absent: tenderness, distended - *Routine Extremities Exam Present: pulses intact. Absent: calf tenderness, extremity cold to touch Comments: trace BLE edema - *Routine Neurological Exam Present: alert, oriented X3, moving all extremities Assessment and Plan (1) UTI (urinary tract infection) Status: Acute Qualifiers: Urinary tract infection type: acute cystitis Hematuria presence: with hematuria Qualified Code(s): N30.01 - Acute cystitis with hematuria Category: Medical Code(s): N39.0 - Urinary tract infection, site not specified (2) Altered mental status Status: Acute Category: Medical Code(s): R41.82 - Altered mental status, unspecified (3) Bilateral lower extremity edema Status: Acute Category: Medical Code(s): R60.0 - Localized edema (4) Anemia Status: Chronic Qualifiers: Anemia type: unspecified type Qualified Code(s): D64.9 - Anemia, unspecified Category: Medical Code(s): D64.9 - Anemia, unspecified (5) Diabetes mellitus Status: Chronic Qualifiers: Diabetes mellitus type: type 1 Diabetes mellitus complication status: with other specified complication Qualified Code(s): E10.69 - Type 1 diabetes mellitus with other specified complication Category: Medical Code(s): E11.9 - Type 2 diabetes mellitus without complications (6) History of CVA (cerebrovascular accident) Status: Chronic Category: Medical Code(s): Z86.73 - Personal history of transient ischemic attack (TIA), and cerebral infarction without residual deficits (7) Renal insufficiency Status: Chronic Category: Medical Code(s): N28.9 - Disorder of kidney and ureter, unspecified (8) Lower GI bleed Status: Acute Category: Medical Code(s): K92.2 - Gastrointestinal hemorrhage, unspecified - Assessment and plan all Dx Assessment and Plan for all problems:: Hgb improved to 10.5 post-transfusion. Further per Dr. Cotter. <Harry Cotter - Last Filed: 09/08/21 12:59> Internal Medicine - PN: Subj *Date: 09/08/21 *Adrien
--- NOTE | 2021-09-08 09:28 | HMH.DCSUM ---
General - General Admission date:: 09/06/21 <CyndeeHarry esparza - 10/28/21 22:23> 09/06/21 <Lola Grewal - 09/08/21 09:31> Discharge date: 09/08/21 <Lola Grewal - 09/08/21 09:31> HPI HPI: Ms. Moctezuma was an 80-year-old female resident at [facility] with a history of dementia, prior strokes, diabetes mellitus, congestive heart failure, and urinary tract infections. She was brought to [facility] emergency room via ambulance with altered mental status for further evaluation. Patient had had several recent hospital admissions for the same. Most recent admission had been 08/16 to 08/21/2021 at which time her mental status went from non-responsive to alert and oriented. She was scheduled for a neurology appointment later in the week. With evaluation in the emergency room, CT of the head showed no acute findings. She was felt to have a UTI and was given ertapenem. Other laboratory data showed a hemoglobin of 10.1, hematocrit 31.7, and white blood cell count of 6100. Blood chemistries show normal sodium and potassium with a BUN of 27 and creatinine 1.10. Urine culture was pending. <Lola Grewal - 09/08/21 09:31> Hospital Course Hospital Course: The morning following admission, mental status remained impaired. She would not open her eyes or follow commands during assessment. She repeatedly mumbled the same 2-word phrases in response to questions. She was continued on IVF and IV antibiotic along with SSI as she was unable to resume po medications. By the morning of 09/05/21, she was alert and oriented to person and place and her mental status was improving. She was hungry and asking about the reason for her hospitalization. Urine cultures remained pending. By 09/06/21 her mental status had returned to baseline. She had not been out of bed. She had been noted with melanotic stool during the night which was positive for occult blood and stated she had had a brief episode of left-sided abdominal pain through the night which had resolved. She was known to have diverticulosis from EGD and colonoscopy 3 months prior and it was felt this likely represented a diverticular bleed without acute diverticulitis due to benign abdominal exam. Hemoglobin was decreased at 8.2 with hematocrit of 25.9. PT was consulted for out of bed activity. By the following morning, her hemoglobin was noted to be 7.9. She complained of being tired. Decision was made to transfuse 2 units PRBC in anticipation of a self-limited diverticular bleed. Her urine cultures grew Proteus and antibiotic was changed to oral Bactrim. By 09/08/21, her mental status had remained stable. Her hemoglobin had improved to 10.1 post-transfusion. She was felt stable for discharge back to [facility]. <Lola Grewal - 09/08/21 09:53> Objective Vital signs: Temp Pulse Resp BP Pulse Ox 97.9 F 60 17 127/51 L 100 09/08/21 07:45 09/08/21 07:45 09/08/21 07:45 09/08/21 07:45 09/08/21 08:00 <CyndeeHarry Je - 10/28/21 22:23> Temp Pulse Resp BP Pulse Ox 97.9 F 60 17 127/51 L 100 09/08/21 07:45 09/08/21 07:45 09/08/21 07:45 09/08/21 07:45 09/08/21 07:45 <Lola Grewal - 09/08/21 09:31> Results Labs on day of discharge: Labs from last 24 hours 09/08/21 09/07/21 09/07/21 06:54 20:03 11:28 Hgb 10.5 L D Hct 31.3 L Sodium 139 Potassium 4.1 Chloride 111 H Carbon Dioxide 24 Anion Gap 8.1 BUN 15 Creatinine 0.80 Estimated Creat Clear 74 Estimated GFR 69 Est GFR ( Amer) 83 Glucose 182 H POC Glucose 210 H Calcium 7.7 L SARS-CoV-2 (PCR) Influenza A Untype (PCR) Influenza Type B (PCR) Blood Type Antibody Screen Crossmatch (AHG) 09/07/21 09/07/21 10:28 09:52 Hgb Hct Sodium Potassium Chloride Carbon Dioxide Anion Gap BUN Creatinine Estimated Creat Clear Estimated GFR
--- NOTE | 2021-09-08 10:43 | SW/DCPLANNER ---
PATIENT WILL DISCHARGE BACK TO [facility] TODAY...
--- NOTE | 2021-09-08 18:09 | PC.NURSE ---
Blood vital signs for the 2 units that were administered on 09/07/2021 have been recorded in the VS assessment and not in the TAR.
[2021-09-09 21:33] LABS: POC Glucose,Bedside 218 (70-110)
[2021-09-09 21:33] LABS: POC Glucose,Bedside 168 (70-110)
[2021-09-09 21:33] LABS: POC Glucose,Bedside 263 (70-110)
[2021-09-09 21:33] LABS: POC Glucose,Bedside 303 (70-110)
[2021-09-09 21:33] LABS: POC Glucose,Bedside 180 (70-110)
== END 2021-09-08 11:40 | DRG 690 ==
LOC: ER 17:14 → 2ND 20:33
PROVIDERS: Admitting Provider Emergency Medicine; Emergency Provider Emergency Medicine; PCP Family Medicine; Visit Provider Family Medicine
DX: N39.0 Urinary tract infection, site not specified (principal); K92.2 Gastrointestinal hemorrhage, unspecified; Z20.822 Contact with and (suspected) exposure to COVID-19; I25.10 Atherosclerotic heart disease of native coronary artery without angina pectoris; I11.0 Hypertensive heart disease with heart failure; I50.9 Heart failure, unspecified; E11.9 Type 2 diabetes mellitus without complications; Z86.73 Personal history of transient ischemic attack (TIA), and cerebral infarction without residual deficits; D64.9 Anemia, unspecified; N28.9 Disorder of kidney and ureter, unspecified; R31.9 Hematuria, unspecified; Z86.718 Personal history of other venous thrombosis and embolism; E03.9 Hypothyroidism, unspecified; Z85.828 Personal history of other malignant neoplasm of skin; Z95.5 Presence of coronary angioplasty implant and graft; M19.90 Unspecified osteoarthritis, unspecified site
CPT/HCPCS: 36415; 70450; 71045; 80048; 80053; 81001; 82272; 82962; 84484; 85014; 85018; 85025; 86850; 87086; 87088; 87186; 93005; 96365; 97110; 97162; 97530; 99284; C9803; G0328; G0378; J1335; P9016; U0003; U0005

== ENCOUNTER 2021-09-14 11:26 | Emergency (ER) | payer MEDICARE, OTHER, SELFPAY ==
[2021-09-14] VITALS (9 sets, daily range): BP systolic 137–185; BP diastolic 54–72; PULSE 56–70; RESP 13–22; TEMP 36.9; O2SAT 96–99; BMI 37.4; BMI 38.6
--- NOTE | 2021-09-14 11:39 | XR_ITS ---
PROCEDURE: XR CHEST PORTABLE CLINICAL HISTORY: AMS COMPARISON: CT CT ANGIO CHEST from 02/08/2021 CR XR CHEST PORTABLE from 07/18/2021 CR XR CHEST PORTABLE from 08/16/2021 CR XR CHEST PORTABLE from 09/03/2021 FINDINGS: Borderline cardiomegaly without failure. Low lung volumes with atelectatic change in the left lower lung zone. Old right humeral neck fracture. Degenerative changes of the shoulders. IMPRESSION: Mild cardiomegaly with left lower lung zone atelectatic change Dictated by: Chris Jha MD 09/14/2021 12:22 Chris Jha MD in OV 09/14/2021 12:22
[2021-09-14 11:43] LABS: POC Glucose,Bedside 145 (70-110)
--- NOTE | 2021-09-14 12:03 | HMH.EDGENADL ---
ED Disposition Clinical Impression: Behavioral change Disposition: Home, Self-Care Condition on Discharge: Good Instructions: DI for Altered Mental Status Additional Instructions: Call primary care provider for further care and instructions. Referrals: Harry Cotter MD [Primary Care Provider] - - Critical Care Critical Care Time: No Attestation: On 09/14/21, the high probability of a clinically significant, sudden or life threatening deterioration of the following system(s) required my full and direct attention, intervention and personal management. The time I documented below is in addition to time spent performing reported procedures but includes the following listed in this critical care notation. Medical Decision Making - Medical Records Medical records reviewed: Yes: I reviewed the patient's medical records. MR Comment: Reviewed discharge summary from recent admission 09/03/2021 through 09/08/2021. Reviewed my emergency department note from 09/03/2021. Reviewed prior brain imaging studies. She was supposed to have a neurology outpatient visit the day after she was admitted on her last admission, but was not seen by neurology because she was an inpatient. She has not had that visit rescheduled that I can see. - Wojciech Inquiry Pt receiving controlled substance: No Vital Signs: 09/14/21 11:27 09/14/21 11:32 09/14/21 12:31 Temperature 98.4 F Temperature Source Oral Pulse Rate 59 L 60 Pulse Rate [Radial] 56 L Respiratory Rate 16 14 16 Blood Pressure 137/54 L 161/68 H Blood Pressure [Right Arm] 137/54 L Blood Pressure Mean 65 83 Blood Pressure Mean [Right Arm] 81 Blood Pressure Position [Right Arm] Sitting 02 Sat by Pulse Oximetry 98 96 97 Oxygen Delivery Method Room Air 09/14/21 12:45 09/14/21 13:31 09/14/21 14:01 Temperature Temperature Source Pulse Rate 58 L 58 L 61 Pulse Rate [Radial] Respiratory Rate 22 13 13 Blood Pressure 160/72 H 151/56 H 166/66 H Blood Pressure [Right Arm] Blood Pressure Mean 83 87 Blood Pressure Mean [Right Arm] Blood Pressure Position [Right Arm] 02 Sat by Pulse Oximetry 97 97 97 Oxygen Delivery Method 09/14/21 14:31 09/14/21 15:00 Temperature Temperature Source Pulse Rate 63 70 Pulse Rate [Radial] Respiratory Rate 13 16 Blood Pressure 165/58 H 185/69 H Blood Pressure [Right Arm] Blood Pressure Mean 85 91 Blood Pressure Mean [Right Arm] Blood Pressure Position [Right Arm] 02 Sat by Pulse Oximetry 98 99 Oxygen Delivery Method - Lab Data Lab Results 09/14/21 11:36: POC Glucose 145 H 09/14/21 12:50: SARS-CoV-2 (PCR) Not detected, Influenza A Untype (PCR) Not detected, Influenza Type B (PCR) Not detected 09/14/21 12:55: Urine Color Yellow, Urine Appearance Clear, Urine pH 7.0, Ur Specific [place] 1.010, Urine Protein Negative, Urine Glucose (UA) Negative, Urine Ketones Negative, Urine Blood Negative, Urine Nitrate Negative, Urine Bilirubin Negative, Urine Urobilinogen 0.2, Ur Leukocyte Esterase Trace, Urine RBC Occasional, Urine WBC 3-5, Ur Squamous Epith Cells Occasional, Urine Bacteria None 09/14/21 13:20: WBC 6.2, RBC 3.63 L, Hgb 11.1 L, Hct 33.4 L, MCV 91.9, MCH 30.5, MCHC 33.2, RDW 15.4, Plt Count 361, MPV 8.2, Neut % (Auto) 60.3, Lymph % (Auto) 30.0, [place] % (Auto) 6.9, Eos % (Auto) 1.9, Baso % (Auto) 1.0, Neut # (Auto) 3.7, Lymph # (Auto) 1.9, [place] # (Auto) 0.4, Eos # (Auto) 0.1, Baso # (Auto) 0.1 09/14/21 13:20: Sodium 141, Potassium 5.9 H, Chloride 109 H, Carbon Dioxide 26, Anion Gap 11.9, BUN 26 H, Creatinine 1.50 H, Estimated Creat Clear 46, Estimated GFR 33 L, Est GFR ( Amer) 40 L, Glucose 134 H, Calcium 10.2, Total Bilirubin 0.4, AST 27, ALT 21, Alkaline Phosphatase 146 H, Total Protein 6.9, Albumin 3.6, Globulin 3.3 H, Albumin/Globulin Ratio 1.1 09/14/21 13:20: Lactate 1.4 Result diagrams: 09/14/21 13:20 09/14/21 13:20 Orders (Tests/Meds): ED MEDICATIONS Discontinued Medic
--- NOTE | 2021-09-14 12:16 | ECG_ITS ---
APPROVED REPORT Exam: Resting ECG HR:59 bpm ECG Measurements Heart Rate 59 AXES AR 202 P 59 QRSd 96 QRS -40 QT 438 T -8 QTc 433 Conclusion Sinus bradycardia Left axis deviation Incomplete right bundle branch block Late r wave progression Abnormal ECG Electronically signed by : John Rosado MD 09/16/2021 06:22:27
[2021-09-14 13:07] LABS: Microscopic, Urine URINE MICROSCOPIC (MICROSCOPIC)
[2021-09-14 13:07] LABS: Coronavirus 19, PCR Not Detected (NotDetected); Influenza A, PCR Not Detected (NotDetected); Influenza B, PCR Not Detected (NotDetected)
[2021-09-14 13:10] LABS: Appearance,Urine CLEAR (Clear); Bilirubin,Urine Negative (Negative); Blood, Urine Negative (Negative); Color,Urine YELLOW (Yellow); Glucose,Urine (UA) Negative (Negative); Ketones,Urine Negative (Negative); Leukocyte Esterase,Urine TRACE (Negative); Nitrate,Urine Negative (Negative); Protein,Urine Negative (Negative); Urobilinogen,Urine 0.2 EU/dl (0.2)
[2021-09-14 13:18] LABS: RBC,Urine Occasional #/hpf (0-3); Squamous Epithelial Cell,Urine Occasional #/hpf (0-5)
[2021-09-14 13:48] LABS: Alanine Aminotransferase 21 U/L (12-78); Albumin Level 3.6 g/dl (3.5-5.0); Albumin/Globulin Ratio 1.1 (1.1-1.8); Alkaline Phosphatase 146 U/L (38-126); Anion Gap 11.9 mEq/L (5-15); Aspartate Amino Transferase 27 U/L (14-36); Bilirubin,Total 0.4 mg/dl (0.2-1.3); Blood Urea Nitrogen 26 mg/dl (7-17); Calcium 10.2 mg/dl (8.4-10.2); Carbon Dioxide 26 mmol/L (22.0-30.0); Chloride 109 mmol/L (98-107); Creatinine Clearance Estimated 46 mL/min (50-200); Estimated Glomerular Filt Rate 33 ml/min (>60); GFR (African American) 40 ML/MIN (>60); Globulin 3.3 g/dL (1.3-3.2); Glucose 134 mg/dl (74-100); Potassium 5.9 mmoL/L (3.5-5.1); Sodium 141 mmol/L (136-145); Total Protein,Serum 6.9 g/dl (6.3-8.2)
[2021-09-14 13:49] LABS: Lactic Acid 1.4 mmol/L (0.7-2.1)
[2021-09-14 13:51] LABS: Basophils # 0.1 K/mm3 (0-0.2); Eosinophils # 0.1 K/mm3 (0.0-0.4); Eosinophils % 1.9 % (0.1-12.0); Hematocrit 33.4 % (37.0-47.0); Hemoglobin 11.1 g/dL (12.2-16.2); Lymphocytes # 1.9 K/mm3 (0.7-4.5); Mean Corpuscular HGB Conc 33.2 g/dL (31.8-35.4); Mean Corpuscular Hemoglobin 30.5 pg (27.0-31.2); Mean Corpuscular Volume 91.9 fl (81-99); Mean Platelet Volume 8.2 fl (7.4-10.4); Monocytes # 0.4 K/mm3 (0.1-1.0); Monocytes % 6.9 % (1.7-9.3); Neutrophils # 3.7 K/mm3 (1.8-7.8); Neutrophils % 60.3 % (37.0-80.0); Platelet Count 361 K/mm3 (142-424); Red Blood Count 3.63 M/mm3 (4.20-5.40); Red Cell Distribution Width 15.4 % (11.5-17.5); White Blood Count 6.2 K/mm3 (4.8-10.8)
--- NOTE | 2021-09-14 15:05 | PC.NURSE ---
[facility] was called. they are heading to take pt. back to [facility].
== END 2021-09-14 16:38 | disposition home or self-care (01) ==
PROVIDERS: Emergency Provider Emergency Medicine; PCP Family Medicine
DX: R41.82 Altered mental status, unspecified (principal); R46.89 Other symptoms and signs involving appearance and behavior; I50.9 Heart failure, unspecified; E78.5 Hyperlipidemia, unspecified; I10 Essential (primary) hypertension; E11.9 Type 2 diabetes mellitus without complications; K21.9 Gastro-esophageal reflux disease without esophagitis; I25.10 Atherosclerotic heart disease of native coronary artery without angina pectoris
CPT/HCPCS: 36415; 71045; 80053; 81001; 82962; 83605; 85025; 87040; 87077; 87186; 93005; 96365; 99284; C9803; U0003; U0005

== ENCOUNTER 2021-10-01 11:56 | Observation (INO) | payer MEDICARE, OTHER, SELFPAY ==
[2021-10-01] VITALS (8 sets, daily range): BP systolic 93–158; BP diastolic 55–74; PULSE 47–79; RESP 13–18; TEMP 36.6–36.9; O2SAT 98–99; BMI 39.9; BMI 83.6
--- NOTE | 2021-10-01 12:11 | ECG_ITS ---
APPROVED REPORT Exam: Resting ECG HR:47 bpm ECG Measurements Heart Rate 47 AXES ME 212 P -7 QRSd 98 QRS -21 QT 478 T -10 QTc 423 Conclusion Marked sinus bradycardia with 1st degree AV block Nonspecific ST abnormality Abnormal ECG Electronically signed by : John Rosado MD 10/02/2021 21:41:51
--- NOTE | 2021-10-01 12:16 | HMH.EDGENADL ---
ED Disposition Clinical Impression: Lower GI bleed, Sinus bradycardia, Blood loss anemia Disposition: Admitted as Observation Condition on Discharge: Fair Referrals: Provider,Referral, [Primary Care Provider] - - Critical Care Critical Care Time: No Attestation: On 10/01/21, the high probability of a clinically significant, sudden or life threatening deterioration of the following system(s) required my full and direct attention, intervention and personal management. The time I documented below is in addition to time spent performing reported procedures but includes the following listed in this critical care notation. Medical Decision Making - Medical Records Medical records reviewed: Yes: I reviewed the patient's medical records. MR Comment: Record indicates prior history of lower GI bleed, Hemoccult positive stool, anemia, transfusions. Reviewed most recent EGD and colonoscopy results by Dr. Messina 06/21/2021. Hiatal hernia, diverticulosis, small polyps. - Wojciech Inquiry Pt receiving controlled substance: No Vital Signs: 10/01/21 11:56 10/01/21 12:01 10/01/21 12:30 Temperature 98.5 F Temperature Source Oral Pulse Rate 47 L 48 L Pulse Rate [Radial] 47 L Respiratory Rate 16 15 Blood Pressure 93/65 L 95/70 L Blood Pressure [Right Arm] 93/65 L Blood Pressure Mean [Right Arm] 74 Blood Pressure Position [Right Arm] Sitting 02 Sat by Pulse Oximetry 98 99 99 Oxygen Delivery Method Room Air - Lab Data Lab Results 10/01/21 12:17: WBC 5.8, RBC 3.16 L, Hgb 9.7 L, Hct 30.9 L, MCV 97.7, MCH 30.7, MCHC 31.4 L, RDW 14.8, Plt Count 303, MPV 8.6, Neut % (Auto) 56.8, Lymph % (Auto) 32.8, [place] % (Auto) 6.9, Eos % (Auto) 2.5, Baso % (Auto) 0.9, Neut # (Auto) 3.3, Lymph # (Auto) 1.9, [place] # (Auto) 0.4, Eos # (Auto) 0.1, Baso # (Auto) 0.1 10/01/21 12:17: Sodium 145, Potassium 4.6, Chloride 111 H, Carbon Dioxide 29, Anion Gap 9.6, BUN 26 H, Creatinine 1.10 H, Estimated Creat Clear 69, Estimated GFR 48 L, Est GFR ( Amer) 58 L, Glucose 126 H, Calcium 9.1, Total Bilirubin 0.2, AST 34, ALT 21, Alkaline Phosphatase 119, Troponin I 0.01, Total Protein 6.1 L, Albumin 3.2 L, Globulin 2.9, Albumin/Globulin Ratio 1.1 10/01/21 12:25: Stool Occult Blood Positive A Result diagrams: 10/01/21 12:17 10/01/21 12:17 Orders (Tests/Meds): ED MEDICATIONS Discontinued Medications Generic Name Dose Route Start Last Admin Trade Name Freq PRN Reason Stop Dose Admin Azithromycin 500 mg/ Sodium 250 mls @ 250 mls/hr 10/01/21 13:20 10/01/21 13:29 Chloride IV 10/01/21 13:21 Not Given ONCE ONE Sodium Chloride 1,000 ml 10/01/21 12:31 10/01/21 13:14 Sodium Chloride 0.9% 1000ml Bag IV 10/01/21 12:32 1,000 ml BOLUS ONE Administration ORDERS Category Date Time Status Type and Screen Stat BBK 10/01/21 12:55 Received PT/PTT Stat Lab 10/01/21 12:17 Received Rapid PCR Covid and Flu A/B Stat Lab 10/01/21 13:17 Received Troponin I Q3H Lab 10/01/21 15:30 Ordered Troponin I Q3H Lab 10/01/21 18:30 Ordered - Radiology Data #1 Image(s): Chest Image Reviewed: Yes I have reviewed radiologist's interpretation PROCEDURE INFORMATION: Exam: XR Chest Exam date and time: 10/01/2021 12:21 PM Age: 80 years old Clinical indication: Other: Dizziness, almost passed out at home TECHNIQUE: Imaging protocol: XR of the chest. Views: 1 view. COMPARISON: CR XR CHEST PORTABLE 09/14/2021 12:11 PM FINDINGS: Lungs: Minimal platelike opacity in the mid left lung is again favored to reflect atelectasis or scarring. Otherwise, no focal airspace consolidation. Pleural spaces: Unremarkable. No pleural effusion. No pneumothorax. Heart/Mediastinum: Unremarkable. No cardiomegaly. Bones/joints: Remote bilateral humeral neck fractures. IMPRESSION: Similar mild atelectasis or scarring in the mid left lung. Otherwise, no acute cardiopulmonary abnormality. Electronically signed
--- NOTE | 2021-10-01 12:21 | XR_ITS ---
PROCEDURE INFORMATION: Exam: XR Chest Exam date and time: 10/01/2021 12:21 PM Age: 80 years old Clinical indication: Other: Dizziness, almost passed out at home TECHNIQUE: Imaging protocol: XR of the chest. Views: 1 view. COMPARISON: CR XR CHEST PORTABLE 09/14/2021 12:11 PM FINDINGS: Lungs: Minimal platelike opacity in the mid left lung is again favored to reflect atelectasis or scarring. Otherwise, no focal airspace consolidation. Pleural spaces: Unremarkable. No pleural effusion. No pneumothorax. Heart/Mediastinum: Unremarkable. No cardiomegaly. Bones/joints: Remote bilateral humeral neck fractures. IMPRESSION: Similar mild atelectasis or scarring in the mid left lung. Otherwise, no acute cardiopulmonary abnormality.
[2021-10-01 12:27] LABS: Basophils # 0.1 K/mm3 (0-0.2); Basophils % 0.9 % (0.1-2.0); Eosinophils # 0.1 K/mm3 (0.0-0.4); Eosinophils % 2.5 % (0.1-12.0); Hematocrit 30.9 % (37.0-47.0); Hemoglobin 9.7 g/dL (12.2-16.2); Lymphocytes # 1.9 K/mm3 (0.7-4.5); Lymphocytes % 32.8 % (10-50); Mean Corpuscular HGB Conc 31.4 g/dL (31.8-35.4); Mean Corpuscular Hemoglobin 30.7 pg (27.0-31.2); Mean Corpuscular Volume 97.7 fl (81-99); Mean Platelet Volume 8.6 fl (7.4-10.4); Monocytes # 0.4 K/mm3 (0.1-1.0); Monocytes % 6.9 % (1.7-9.3); Neutrophils # 3.3 K/mm3 (1.8-7.8); Neutrophils % 56.8 % (37.0-80.0); Platelet Count 303 K/mm3 (142-424); Red Blood Count 3.16 M/mm3 (4.20-5.40); Red Cell Distribution Width 14.8 % (11.5-17.5); White Blood Count 5.8 K/mm3 (4.8-10.8)
[2021-10-01 12:33] LABS: Occult Blood,Stool Positive (Negative)
[2021-10-01 12:40] LABS: Chloride 111 mmol/L (98-107); Sodium 145 mmol/L (136-145)
[2021-10-01 12:41] LABS: Potassium 4.6 mmoL/L (3.5-5.1)
--- NOTE | 2021-10-01 12:41 | PC.NURSE ---
lab at bedside
[2021-10-01 12:43] LABS: Alanine Aminotransferase 21 U/L (12-78); Albumin Level 3.2 g/dl (3.5-5.0); Albumin/Globulin Ratio 1.1 (1.1-1.8); Alkaline Phosphatase 119 U/L (38-126); Anion Gap 9.6 mEq/L (5-15); Aspartate Amino Transferase 34 U/L (14-36); Bilirubin,Total 0.2 mg/dl (0.2-1.3); Blood Urea Nitrogen 26 mg/dl (7-17); Carbon Dioxide 29 mmol/L (22.0-30.0); Creatinine Clearance Estimated 69 mL/min (50-200); Estimated Glomerular Filt Rate 48 ml/min (>60); GFR (African American) 58 ML/MIN (>60); Globulin 2.9 g/dL (1.3-3.2); Total Protein,Serum 6.1 g/dl (6.3-8.2)
[2021-10-01 12:44] LABS: Calcium 9.1 mg/dl (8.4-10.2); Glucose 126 mg/dl (74-100)
[2021-10-01 13:04] LABS: Troponin I 0.01 ng/ml (0.00-0.034)
--- NOTE | 2021-10-01 13:04 | PC.NURSE ---
speaking with Dr Cotter
[2021-10-01 13:25] LABS: Activated Partial Thrombo Time 21.7 seconds (22.8-30.6); INR 0.96 (0.9-1.1); Prothrombin Time 10.9 seconds (10.1-12.5)
[2021-10-01 13:32] LABS: Coronavirus 19, PCR Not Detected (NotDetected); Influenza A, PCR Not Detected (NotDetected); Influenza B, PCR Not Detected (NotDetected)
--- NOTE | 2021-10-01 13:35 | PC.NURSE ---
pt eating at this time
--- NOTE | 2021-10-01 14:06 | PC.NURSE ---
report called to floor
--- NOTE | 2021-10-01 14:24 | PC.NURSE ---
Pt on bedpan at this time
--- NOTE | 2021-10-01 14:59 | PC.NURSE ---
PT ARRIVED TO THE FLOOR AT THIS TIME
--- NOTE | 2021-10-01 15:28 | HMH.PHAVTE ---
[facility] Pharmacy VTE Monitoring - Patient Demographics Admission date: 10/01/21 Report Date: 10/01/21 Time: 15:28 Allergies/Adverse Reactions: Patient Allergies Iodinated Contrast Media Allergy (Intermediate, Verified 07/26/21 13:19) naproxen [NAPROXEN] Allergy (Mild, Verified 07/26/21 13:19) Height: 1.65 m Weight: 108.862 kg Patient Problems: Current Active Problems Lower GI bleed (Acute) Sinus bradycardia (Acute) Blood loss anemia (Acute) - VTE Risk Labs: VTE Related Lab Results Hgb 9.7 g/dL (12.2-16.2) L 10/01/21 12:17 Hct 30.9 % (37.0-47.0) L 10/01/21 12:17 Plt Count 303 K/mm3 (142-424) 10/01/21 12:17 PT 10.9 seconds (10.1-12.5) 10/01/21 12:17 INR 0.96 (0.9-1.1) 10/01/21 12:17 APTT 21.7 seconds (22.8-30.6) L 10/01/21 12:17 BUN 26 mg/dl (7-17) H 10/01/21 12:17 Creatinine 1.10 mg/dl (0.52-1.04) H 10/01/21 12:17 Estimated Creat Clear 69 mL/min (50-200) 10/01/21 12:17 - Prophylaxis VTE Prophylaxis Ordered?: Yes Types of VTE Prophylaxis: TEDS Knee High Location of Applied Device: Bilateral Lower Extremeties
[2021-10-01 18:33] LABS: Basophils # 0.1 K/mm3 (0-0.2); Basophils % 1.4 % (0.1-2.0); Eosinophils # 0.2 K/mm3 (0.0-0.4); Eosinophils % 3.2 % (0.1-12.0); Lymphocytes # 1.8 K/mm3 (0.7-4.5); Mean Corpuscular HGB Conc 31.3 g/dL (31.8-35.4); Mean Corpuscular Hemoglobin 30.3 pg (27.0-31.2); Mean Corpuscular Volume 96.9 fl (81-99); Monocytes # 0.3 K/mm3 (0.1-1.0); Monocytes % 4.8 % (1.7-9.3); Neutrophils # 3.4 K/mm3 (1.8-7.8); Neutrophils % 59.5 % (37.0-80.0); Platelet Count 298 K/mm3 (142-424); Red Blood Count 2.97 M/mm3 (4.20-5.40); Red Cell Distribution Width 14.9 % (11.5-17.5); White Blood Count 5.8 K/mm3 (4.8-10.8)
[2021-10-01 18:34] LABS: Hematocrit 28.7 % (37.0-47.0)
[2021-10-01 18:41] LABS: Troponin I < 0.01 ng/ml (0.00-0.034)
[2021-10-01 21:52] LABS: POC Glucose,Bedside 172 (70-110)
[2021-10-01 21:52] LABS: POC Glucose,Bedside 158 (70-110)
[2021-10-02] VITALS: BP 142/60; PULSE 63; RESP 15; TEMP 36.7; O2SAT 100
--- NOTE | 2021-10-02 02:54 | PC.NURSE ---
Addendum entered by Nahomi Hayden RN 10/02/21 02:55: 2cm stage 2 Original Note: Open stage 2 to right buttock
[2021-10-02 04:00] VITALS: BP 143/66; PULSE 67; RESP 16; TEMP 36.6; O2SAT 98
--- NOTE | 2021-10-02 04:42 | PC.NURSE ---
Pt rested well t/o shift. Alert and oriented with no c/o SOA or pain to this RN. Pt has stage 2 noted on right buttocks dressing applied c/d/i at this time. Call ramos in reach, will continue to monitor.
[2021-10-02 05:00] VITALS: BMI 37.0
[2021-10-02 06:25] LABS: POC Glucose,Bedside 112 (70-110)
[2021-10-02 07:37] LABS: Basophils # 0.1 K/mm3 (0-0.2); Basophils % 1.2 % (0.1-2.0); Eosinophils # 0.2 K/mm3 (0.0-0.4); Eosinophils % 3.2 % (0.1-12.0); Hematocrit 29.8 % (37.0-47.0); Hemoglobin 9.4 g/dL (12.2-16.2); Lymphocytes # 1.5 K/mm3 (0.7-4.5); Lymphocytes % 32.4 % (10-50); Mean Corpuscular HGB Conc 31.5 g/dL (31.8-35.4); Mean Corpuscular Hemoglobin 30.4 pg (27.0-31.2); Mean Corpuscular Volume 96.7 fl (81-99); Mean Platelet Volume 8.4 fl (7.4-10.4); Monocytes # 0.3 K/mm3 (0.1-1.0); Monocytes % 5.9 % (1.7-9.3); Neutrophils # 2.7 K/mm3 (1.8-7.8); Neutrophils % 57.3 % (37.0-80.0); Platelet Count 296 K/mm3 (142-424); Red Blood Count 3.09 M/mm3 (4.20-5.40); Red Cell Distribution Width 15.1 % (11.5-17.5); White Blood Count 4.7 K/mm3 (4.8-10.8)
--- NOTE | 2021-10-02 07:44 | SW/DCPLANNER ---
Addendum entered by Noa Piedra 10/02/21 10:39: PATIENT IS MEDICAID PENDING CONFIRMED BY [facility] AT [facility].. Original Note: PATIENT PRESENTED INTO THE HOSPITAL FROM [facility] WHERE SHE RESIDES.. SHE ADMITTED WITH A GI BLEED AND ANEMIA. SHE HAS HAD MULTIPLE HOSPITAL ADMISSIONS OVER THE PAST YEAR. I HAVE CALLED THE [employer] FEEDER TO ENSURE SHE WILL BE RETURNING BACK AND ASKED IF SHE CONTINUES TO BE PRIVATE PAY OR IS SHE MEDICAID PENDING ON A BEDHOLD. WAITING TO HEAR BACK..PATIENT NOT MEDICALLY READY TO DISCHARGE TODAY BUT COULD BE IN THE NEXT DAY OR TWO..
[2021-10-02 07:45] LABS: Anion Gap 6.1 mEq/L (5-15); Blood Urea Nitrogen 26 mg/dl (7-17); Calcium 8.8 mg/dl (8.4-10.2); Carbon Dioxide 30 mmol/L (22.0-30.0); Chloride 110 mmol/L (98-107); Creatinine Clearance Estimated 70 mL/min (50-200); Estimated Glomerular Filt Rate 53 ml/min (>60); GFR (African American) 64 ML/MIN (>60); Glucose 118 mg/dl (74-100); Potassium 4.1 mmoL/L (3.5-5.1); Sodium 142 mmol/L (136-145)
[2021-10-02 08:00] VITALS: BP 125/57; PULSE 71; RESP 20; TEMP 36.7; O2SAT 100
--- NOTE | 2021-10-02 08:37 | HMH.HP ---
*Admission Date: 10/01/21 <Edie Sparks - 10/02/21 08:44> *Chief complaint: Rectal bleeding <Edie Sparks - 10/02/21 08:44> *History of present illness: Ms. Moctezuma is an 80-year-old female resident at [facility] with a history of dementia, prior strokes, diabetes mellitus, congestive heart failure, and urinary tract infections. She was brought to [facility] emergency room via ambulance from [facility] after experiencing blood in her stool. She states she was also dizzy and her blood pressure was low. Nurses also told her that her heart rate was low. Patient also described constipation last week at which time she nursing had to dig the stool out . Nurses told her that she was backed up throughout her colon. After impaction was removed she was having 2-3 stools a day which she states is normal for her. She did experience some nausea at the time of her constipation but is not nauseated now. She denies abdominal pain. She has a lot of flatus at present. With evaluation in the emergency room her hemoglobin was noted to be 9.7 with hematocrit of 30.9. She was afebrile. Blood pressure was 93/65 and 95/70. She was given a liter of IV fluids and Zithromax IV. EKG did show sinus bradycardia with a heart rate of 47 with a first-degree AV block. Patient is noted to have had several recent hospital admissions with the most recent 09/06 through 09/08/2021 with UTI with Proteus mirabilis, altered mental status, anemia requiring 2 units of packed red blood cells and lower GI bleed.. She is also known to have diverticulosis from recent EGD and colonoscopy 3 months ago. Previous GIB was felt to be a diverticular bleed. She has remained on Plavix. This a.m. patient is comfortable. She has eaten all of her breakfast. She denies chest pain and shortness of breath. Blood pressure is normal today. <Edie Sparks - 10/02/21 09:19> [facility] History Medical History: Reports:: Atherosclerotic Heart Disease, Congestive Heart Failure, Congenital Heart Disease, Coronary Artery Disease, Cerebrovascular Accident, Deep Vein Thrombosis, Depression, Diabetes Mellitus Type 2, Gastroesophageal Reflux Disease(GERD), Gastrointestinal Bleed, Hyperlipidemia, Hypertension, Renal Insufficiency, Urinary Tract Infection Denies:: Cancer, Diabetes Mellitus Type 1, Internal Pacemaker, MRSA, Seizures <Edie Sparks 10/02/21 09:19> *Have you ever received a pneumonia vaccine?: Yes <Edie Sparks 10/02/21 08:44> *Have you received a flu vaccine this season?: Yes <Edie Sparks 10/02/21 08:44> Other Medical History: Reports: Anemia, Arthritis, Hypothyroidism, Thyroid Disease <Edie Sparks 10/02/21 08:44> Other Surgeries: Yes: Appendectomy, Cardiac Catheterization, Cholecystectomy, Colonoscopy, Coronary Stent, EGD, Hernia Repair, Hysterectomy-Total, Skin Cancer Excision, Other. No: Pacemaker <Edie Sparks 10/02/21 08:44> Amputation: No <Edie Sparks 10/02/21 08:44> Fractures: Yes (L humerus, R humerus) <Edie Sparks 10/02/21 08:44> - *Social History Smoking Status: Never smoker <Edie Sparks 10/02/21 08:44> Alcohol Intake: never <Edie Sparks 10/02/21 08:44> Alcohol Intake Frequency:: other <Edie Sparks 10/02/21 08:44> Substance Use Type: denies use <Edie Sparks 10/02/21 08:44> *Occupational Status:: retired <Edie Sparks 10/02/21 08:44> Housing: long term <Edie Sparks 10/02/21 08:44> Household Members: other <Edie Sparks 10/02/21 08:44> *Travel in the last 8 weeks: None <Edie Sparks 10/02/21 08:44> - Psychiatric History Pschychiatric History:: Reports:: Depression <Edie Sparks 10/02/21 08:44> Family Hx:: Coronary Artery Disease <Edie Sparks 10/02/21 09:19> Review of Systems - Constitutional Denies fatigue, Denies fever(s) <Edie Sparks 10/02/21 09:19> - Eyes Reports change in vision (Vision is better today) <Edie Sparks 10/02/21 09:19> -
--- NOTE | 2021-10-02 10:36 | HMH.PHAINT ---
MEDICATION RECONCILIATION COMPLETED ON PATIENT USING MAR FROM [facility]. -CARMEN STAPLETON, MAGYD
[2021-10-02 10:47] LABS: POC Glucose,Bedside 196 (70-110)
[2021-10-02 11:55] VITALS: BMI 36.7
--- NOTE | 2021-10-02 12:51 | DIET.NUTRFU ---
RD interviewed patient today, denied any chewing or swallowing issues. Tolerating regular diabetic diet with no issues and good meal intake. Will continue current diet
--- NOTE | 2021-10-02 13:41 | HMH.DCSUM ---
General - General Admission date:: 10/01/21 <Harry Cotter - 11/12/21 14:49> 10/01/21 <ClareEdie - 10/02/21 13:54> Discharge date: 10/02/21 <ClareEdie - 10/02/21 13:54> HPI HPI: Ms. Moctezuma is an 80-year-old female resident at [facility] with a history of dementia, prior strokes, diabetes mellitus, congestive heart failure, and urinary tract infections. She was brought to [facility] emergency room via ambulance from [facility] after experiencing blood in her stool. She states she was also dizzy and her blood pressure was low. Nurses also told her that her heart rate was low. Patient also described constipation last week at which time she nursing had to dig the stool out . Nurses told her that she was backed up throughout her colon. After impaction was removed she was having 2-3 stools a day which she states is normal for her. She did experience some nausea at the time of her constipation but is not nauseated now. She denies abdominal pain. She has a lot of flatus at present. With evaluation in the emergency room her hemoglobin was noted to be 9.7 with hematocrit of 30.9. She was afebrile. Blood pressure was 93/65 and 95/70. She was given a liter of IV fluids and Zithromax IV. EKG did show sinus bradycardia with a heart rate of 47 with a first-degree AV block. Patient is noted to have had several recent hospital admissions with the most recent 09/06 through 09/08/2021 with UTI with Proteus mirabilis, altered mental status, anemia requiring 2 units of packed red blood cells and lower GI bleed.. She is also known to have diverticulosis from recent EGD and colonoscopy 3 months ago. Previous GIB was felt to be a diverticular bleed. She has remained on Plavix due to previous stroke and TIA's. This a.m. patient is comfortable. She has eaten all of her breakfast. She denies chest pain and shortness of breath. Blood pressure is normal today. <ClareTiffanyEdie - 10/02/21 13:54> Hospital Course Hospital Course: After admission pt remained stable; Dizziness resolved. She had 1-2 additional stools without visible blood although stool for OB was positive. She had no abdominal pain. She ate without problems. H&H and Vital signs were stale. She was thus transferred back to [facility] facility for on going rehab. Meds as per reconciiation sheet.Diltiazem was discontinued. To be followRed by MD at [facility]. <Edie Sparks - 10/02/21 13:54> Objective Vital signs: Temp Pulse Resp BP Pulse Ox 98.1 F 71 20 125/57 L 100 10/02/21 08:00 10/02/21 08:00 10/02/21 08:00 10/02/21 08:00 10/02/21 08:00 <Harry Cotter - 11/12/21 14:49> Temp Pulse Resp BP Pulse Ox 98.1 F 71 20 125/57 L 100 10/02/21 08:00 10/02/21 08:00 10/02/21 08:00 10/02/21 08:00 10/02/21 08:00 <Edie Sparks - 10/02/21 13:54> Narrative: Exam Vital signs and Labs for Last 24 Hours: Temp Pulse Resp BP Pulse Ox 98.1 F 71 20 125/57 L 100 10/02/21 08:00 10/02/21 08:00 10/02/21 08:00 10/02/21 08:00 10/02/21 08:00 Laboratory Results - last 24 hr 10/01/21 12:17: WBC 5.8, RBC 3.16 L, Hgb 9.7 L, Hct 30.9 L, MCV 97.7, MCH 30.7, MCHC 31.4 L, RDW 14.8, Plt Count 303, MPV 8.6, Neut % (Auto) 56.8, Lymph % (Auto) 32.8, [place] % (Auto) 6.9, Eos % (Auto) 2.5, Baso % (Auto) 0.9, Neut # (Auto) 3.3, Lymph # (Auto) 1.9, [place] # (Auto) 0.4, Eos # (Auto) 0.1, Baso # (Auto) 0.1 10/01/21 12:17: Sodium 145, Potassium 4.6, Chloride 111 H, Carbon Dioxide 29, Anion Gap 9.6, BUN 26 H, Creatinine 1.10 H, Estimated Creat Clear 69, Estimated GFR 48 L, Est GFR ( Amer) 58 L, Glucose 126 H, Calcium 9.1, Total Bilirubin 0.2, AST 34, ALT 21, Alkaline Phosphatase 119, Troponin I 0.01, Total Protein 6.1 L, Albumin 3.2 L, Globulin 2.9, Albumin/Globulin Ratio 1.1 10/01/21 12:17: PT 10.9, INR 0.96, APTT 21.7 L 10/01/21 12:25: Stool Occult Blood Positive
== END 2021-10-02 15:21 ==
LOC: ER 13:17 → 2ND 13:53
PROVIDERS: Admitting Provider Family Medicine; Emergency Provider Emergency Medicine; Visit Provider Family Medicine
DX: D64.9 Anemia, unspecified (principal); K92.2 Gastrointestinal hemorrhage, unspecified; Z20.822 Contact with and (suspected) exposure to COVID-19; I25.10 Atherosclerotic heart disease of native coronary artery without angina pectoris; I11.0 Hypertensive heart disease with heart failure; I50.9 Heart failure, unspecified; K21.9 Gastro-esophageal reflux disease without esophagitis; E78.5 Hyperlipidemia, unspecified; Z79.899 Other long term (current) drug therapy; Z79.4 Long term (current) use of insulin; E03.9 Hypothyroidism, unspecified; E11.9 Type 2 diabetes mellitus without complications
CPT/HCPCS: G0378; 36415; 71045; 80048; 80053; 82272; 82962; 84484; 85025; 85610; 85730; 86850; 93005; 96365; 99284; C9803; G0328; U0003; U0005

== ENCOUNTER 2021-10-08 15:30 | Observation (INO) | payer MEDICARE, OTHER, SELFPAY ==
[2021-10-08] VITALS (15 sets, daily range): BP systolic 114–162; BP diastolic 42–77; PULSE 69–87; RESP 14–20; TEMP 36.6–37.1; O2SAT 96–100; BMI 42.5; BMI 44.1; BMI 38.3
--- NOTE | 2021-10-08 16:03 | HMH.EDGENADL ---
ED Disposition Clinical Impression: Lower GI bleed, Blood loss anemia Disposition: Admitted as Observation Condition on Discharge: Fair - Critical Care Critical Care Time: No Attestation: On , the high probability of a clinically significant, sudden or life threatening deterioration of the following system(s) required my full and direct attention, intervention and personal management. The time I documented below is in addition to time spent performing reported procedures but includes the following listed in this critical care notation. Medical Decision Making - Wojciech Inquiry Pt receiving controlled substance: No Vital Signs: 10/08/21 15:31 Temperature 98.1 F Temperature Source Oral Pulse Rate [Right Radial] 71 Respiratory Rate 14 Blood Pressure [Right Arm] 114/48 L Blood Pressure Mean [Right Arm] 70 Blood Pressure Source [Right Arm] Automatic Cuff Blood Pressure Position [Right Arm] Sitting 02 Sat by Pulse Oximetry 97 Oxygen Delivery Method Room Air - Lab Data Lab Results 10/08/21 16:06: WBC 3.7 L, RBC 2.23 L, Hgb 6.7 L*, Hct 21.6 L, MCV 97.0, MCH 30.1, MCHC 31.0 L, RDW 15.5, Plt Count 270, MPV 8.3, Neut % (Auto) 49.4, Lymph % (Auto) 42.3, [place] % (Auto) 4.7, Eos % (Auto) 2.1, Baso % (Auto) 1.5, Neut # (Auto) 1.8, Lymph # (Auto) 1.6, [place] # (Auto) 0.2, Eos # (Auto) 0.1, Baso # (Auto) 0.1 10/08/21 16:06: Sodium 140, Potassium 4.7, Chloride 109 H, Carbon Dioxide 25, Anion Gap 10.7, BUN 23 H, Creatinine 1.20 H, Estimated Creat Clear 37, Estimated GFR 43 L, Est GFR ( Amer) 52 L, Glucose 179 H, Calcium 8.0 L, Total Bilirubin 0.1 L, AST 32, ALT 21, Alkaline Phosphatase 85, Total Protein 5.6 L, Albumin 2.8 L, Globulin 2.8, Albumin/Globulin Ratio 1.0 L 10/08/21 16:15: Stool Occult Blood Positive A Result diagrams: 10/08/21 16:06 10/08/21 16:06 Orders (Tests/Meds): ED MEDICATIONS Generic Name Dose Route Start Last Admin Trade Name Benita PRN Reason Stop Dose Admin Sodium Chloride 250 mls @ 25 mls/hr 10/08/21 16:30 Sod Chlor 0.9% 250ml Bag IV 10/09/21 16:29 .Q10H WILY ORDERS Category Date Time Status PRBC [Red Blood Cells] Stat BBK 10/08/21 16:26 Ordered Type and Screen Stat BBK 10/08/21 16:26 Ordered Rapid PCR Covid and Flu A/B Stat Lab 10/08/21 16:29 Ordered - Physician Consults Physician Consulted: Taz Time: 16:50 Reason -: Admission Comment/Response: Agrees to admit the patient to the hospital. We discussed the patient's clinical information, including history, exam, laboratory and radiology results and ED course. Per hospital procedure, I will write temporary bridge inpatient orders on the patient. Specific orders requested by the admitting physician: Admit to Dr. Cotter General Adult HPI - General Chief complaint: Weakness Stated complaint: rectal bleeding Time Seen by Provider: 10/08/21 16:04 Mode of Arrival: EMS Limitations: No Limitations Description of Symptoms (Recalled from ER Triage Doc. by RN): Pt to ED per EMS c/o frequent bloody BM today. Pt states that she has an occasional cramp in her lower abd, but it goes away quickly. Denies any pain at this time. Pt c/o lightheaded and weakness today. A&O x4. GCS 15. EMS reports that HC staff stated pt had a H&H drawn, but that they have not received the results at this time. - History of Present Illness HPI narrative: Brought in by ambulance from [facility]. Staff reports passing blood per rectum with clots. Patient states they had to change her several times overnight. She has had some intermittent mild lower abdominal cramping, no current pain. No vomiting. No fever. Recently admitted to this hospital 10/01/2021 through 10/02/2021 for GI bleed with anemia. Has a known diagnosis of previous GI bleed due to diverticulosis, recent GI bleed presumed to be diverticular in origin. Colonoscopy 06/21/2021 that showed diverticulosis, small polyps. - Related Data Home Medications Medica
[2021-10-08 16:14] LABS: Basophils # 0.1 K/mm3 (0-0.2); Basophils % 1.5 % (0.1-2.0); Eosinophils # 0.1 K/mm3 (0.0-0.4); Eosinophils % 2.1 % (0.1-12.0); Hematocrit 21.6 % (37.0-47.0); Lymphocytes # 1.6 K/mm3 (0.7-4.5); Lymphocytes % 42.3 % (10-50); Mean Corpuscular Hemoglobin 30.1 pg (27.0-31.2); Mean Platelet Volume 8.3 fl (7.4-10.4); Monocytes # 0.2 K/mm3 (0.1-1.0); Monocytes % 4.7 % (1.7-9.3); Neutrophils # 1.8 K/mm3 (1.8-7.8); Neutrophils % 49.4 % (37.0-80.0); Platelet Count 270 K/mm3 (142-424); Red Blood Count 2.23 M/mm3 (4.20-5.40); Red Cell Distribution Width 15.5 % (11.5-17.5); White Blood Count 3.7 K/mm3 (4.8-10.8)
[2021-10-08 16:19] LABS: Chloride 109 mmol/L (98-107); Potassium 4.7 mmoL/L (3.5-5.1); Sodium 140 mmol/L (136-145)
[2021-10-08 16:20] LABS: Occult Blood,Stool Positive (Negative)
[2021-10-08 16:21] LABS: Blood Urea Nitrogen 23 mg/dl (7-17); Creatinine Clearance Estimated 37 mL/min (50-200); Estimated Glomerular Filt Rate 43 ml/min (>60); GFR (African American) 52 ML/MIN (>60)
[2021-10-08 16:22] LABS: Alanine Aminotransferase 21 U/L (12-78); Albumin Level 2.8 g/dl (3.5-5.0); Alkaline Phosphatase 85 U/L (38-126); Anion Gap 10.7 mEq/L (5-15); Aspartate Amino Transferase 32 U/L (14-36); Bilirubin,Total 0.1 mg/dl (0.2-1.3); Carbon Dioxide 25 mmol/L (22.0-30.0); Globulin 2.8 g/dL (1.3-3.2); Total Protein,Serum 5.6 g/dl (6.3-8.2)
[2021-10-08 16:23] LABS: Glucose 179 mg/dl (74-100); Hemoglobin 6.7 g/dL (12.2-16.2)
--- NOTE | 2021-10-08 16:24 | PC.NURSE ---
Isiah from Lab called a critical on Dewayne Moctezuma, hemoglobin 6.7 and hct 21.6. Was repeated back and confirmed.
--- NOTE | 2021-10-08 16:30 | PC.NURSE ---
MARINA HARPER notified of critical hgb and hct per ,pm
--- NOTE | 2021-10-08 16:30 | PC.NURSE ---
notified lab of type and screen for transfusion order.
--- NOTE | 2021-10-08 16:42 | PC.NURSE ---
power nut runner operator paging Dr. Mcghee who is data governance consultant for Dr. Cotter
--- NOTE | 2021-10-08 16:51 | PC.NURSE ---
spoke with Dr Mcghee who is monomer recovery supervisor for Dr Cotter. Dr Mcghee agreed to admit pt. Notified Coding Compliance Manager of admission.
[2021-10-08 17:21] LABS: Coronavirus 19, PCR Not Detected (NotDetected); Influenza A, PCR Not Detected (NotDetected); Influenza B, PCR Not Detected (NotDetected)
--- NOTE | 2021-10-08 17:54 | PC.NURSE ---
nika in lab called at this time, stating has 2 units of blood ready for pt, notified pts primary nurse, lorie cueto
--- NOTE | 2021-10-08 17:57 | PC.NURSE ---
Gave report to YANDY Matute and advised that lab just notified of blood being ready.
--- NOTE | 2021-10-08 19:40 | PC.WOUNDNOTE ---
Addendum entered by Mariana Walton RN 10/08/21 19:53: blanchable area to the rt buttocks Original Note: blanchable stage 1 noted to the lt buttocks
[2021-10-08 21:34] LABS: POC Glucose,Bedside 170 (70-110)
--- NOTE | 2021-10-08 23:33 | PC.NURSE ---
DID NOT CHART INTAKE
[2021-10-09] VITALS (14 sets, daily range): BP systolic 119–185; BP diastolic 50–74; PULSE 73–101; RESP 16–20; TEMP 36.9–37.6; O2SAT 93–97; BMI 38.0
[2021-10-09 06:01] LABS: Basophils # 0.1 K/mm3 (0-0.2); Eosinophils # 0.1 K/mm3 (0.0-0.4); Eosinophils % 1.7 % (0.1-12.0); Lymphocytes # 1.6 K/mm3 (0.7-4.5); Lymphocytes % 26.7 % (10-50); Mean Corpuscular HGB Conc 32.4 g/dL (31.8-35.4); Mean Corpuscular Hemoglobin 29.9 pg (27.0-31.2); Mean Corpuscular Volume 92.4 fl (81-99); Monocytes # 0.2 K/mm3 (0.1-1.0); Monocytes % 3.8 % (1.7-9.3); Neutrophils # 3.9 K/mm3 (1.8-7.8); Neutrophils % 66.7 % (37.0-80.0); Platelet Count 234 K/mm3 (142-424); Red Blood Count 2.75 M/mm3 (4.20-5.40); Red Cell Distribution Width 17.2 % (11.5-17.5); White Blood Count 5.8 K/mm3 (4.8-10.8)
[2021-10-09 06:03] LABS: Hematocrit 25.4 % (37.0-47.0); Hemoglobin 8.2 g/dL (12.2-16.2)
[2021-10-09 06:44] LABS: Hematocrit 24.9 % (37.0-47.0); Hemoglobin 8.2 g/dL (12.2-16.2)
--- NOTE | 2021-10-09 06:44 | PC.NURSE ---
Pt recieved 2 units of PRBCs during my shift, no signs or symptoms of transfusion reaction. No new complaints at this time. Pt has had 3 small/medium, tarry stools during my shift. Pt is fingersticks ACHS, medicating per MAR. No needs at this time, call light in reach.
--- NOTE | 2021-10-09 07:28 | HMH.PHAINT ---
verified home medication list using list from half-way MAR
--- NOTE | 2021-10-09 07:32 | HMH.PHAVTE ---
[facility] Pharmacy VTE Monitoring - Patient Demographics Admission date: 10/09/21 Report Date: 10/09/21 Time: 07:32 Allergies/Adverse Reactions: Patient Allergies Iodinated Contrast Media Allergy (Intermediate, Verified 07/26/21 13:19) naproxen [NAPROXEN] Allergy (Mild, Verified 07/26/21 13:19) Height: 1.63 m Weight: 101.406 kg Patient Problems: Current Active Problems Lower GI bleed (Acute) Blood loss anemia (Acute) - VTE Risk Labs: VTE Related Lab Results Hgb 8.2 g/dL (12.2-16.2) L 10/09/21 06:34 Hct 24.9 % (37.0-47.0) L 10/09/21 06:34 Plt Count 234 K/mm3 (142-424) 10/09/21 05:20 BUN 23 mg/dl (7-17) H 10/08/21 16:06 Creatinine 1.20 mg/dl (0.52-1.04) H 10/08/21 16:06 Estimated Creat Clear 37 mL/min (50-200) 10/08/21 16:06 VTE Score: 3 VTE Risk Level: Low Risk Clinical Trial Participant: No - Prophylaxis VTE Prophylaxis Ordered?: Yes Types of VTE Prophylaxis: TEDS Knee High
--- NOTE | 2021-10-09 08:39 | HMH.HP ---
*Admission Date: 10/09/21 <SparksEdie - 10/09/21 08:45> *Chief complaint: Rectal bleeding <SparksEdie - 10/09/21 08:57> *History of present illness: Ms. Moctezuma is an 80-year-old female resident at [facility] with a history of dementia, prior strokes, diabetes mellitus, congestive heart failure, and urinary tract infections. She was brought to [facility] emergency room via ambulance from [facility] after experiencing several bloody stools with clots. She states she was also dizzy and her blood pressure was low. Patient recalls impaction being removed several weeks ago prior to her last hospitalization. She was unable to recall how her bowels moved after her discharge last week. She denies any recent nausea and has had no vomiting. She was eating as usual. She denies abdominal pain. She was able to ambulate in the [facility]. She feels her stomach rumbling. With evaluation in the emergency room hemoglobin was found to be 6.7 with a hematocrit of 21.6.Pressure was good at 114/48. She was thus admitted for blood administration and ongoing observation.With monitoring of stools and H&H. Patient is noted to have had several recent hospital admissions with the most recent 10/01-10/02/2021 with rectal bleeding. H&H were stable at that time and she was felt to have had bleeding after removal of impaction. She had no further bloody stools while hospitalized and thus went back to [facility]. Noted diverticulosis from recent EGD and colonoscopy 3 months ago. She has remained on Plavix due to previous stroke and TIA's. This a.m. patient is comfortable. She has eaten all of her breakfast. She denies chest pain and shortness of breath. Repeat H&H this morning at 8.2 and 24.9. She has completed her breakfast. <ClareTiffanyEdie - 10/09/21 08:57> [facility] History Medical History: Reports:: Atherosclerotic Heart Disease, Cancer (SKIN), Congestive Heart Failure, Congenital Heart Disease, Coronary Artery Disease, Cerebrovascular Accident, Deep Vein Thrombosis, Depression, Diabetes Mellitus Type 2, Gastroesophageal Reflux Disease(GERD), Gastrointestinal Bleed, Hyperlipidemia, Hypertension, Renal Insufficiency, Urinary Tract Infection Denies:: Diabetes Mellitus Type 1, Internal Pacemaker, MRSA, Seizures <Tiffany Sparkshy 10/09/21 08:45> *Have you ever received a pneumonia vaccine?: Yes <Edie Sparks 10/09/21 08:45> *Have you received a flu vaccine this season?: Yes <ClareEdie 10/09/21 08:45> Other Medical History: Reports: Anemia, Arthritis, Hypothyroidism, Thyroid Disease <Edie Sparks 10/09/21 08:45> Other Surgeries: Yes: Appendectomy, Cardiac Catheterization, Cholecystectomy, Colonoscopy, Coronary Stent, EGD, Hernia Repair, Hysterectomy-Total, Skin Cancer Excision, Other. No: Pacemaker <Edie Sparks 10/09/21 08:45> Amputation: No <Edie Sparks 10/09/21 08:45> Fractures: Yes (L humerus, R humerus) <Sparks,Edie 10/09/21 08:45> - *Social History Last grade of school completed: High school graduate <Edie Sparks 10/09/21 08:45> Smoking Status: Never smoker <Edie Sparks 10/09/21 08:45> Alcohol Intake: never <Edie Sparks 10/09/21 08:45> Alcohol Intake Frequency:: other <Edie Sparks 10/09/21 08:45> Substance Use Type: denies use <ClareEdie 10/09/21 08:45> *Occupational Status:: retired <ClareEdie 10/09/21 08:45> Housing: [facility] <Edie Sparks 10/09/21 08:45> Household Members: spouse <Edie Sparks 10/09/21 08:45> *Travel in the last 8 weeks: None <Edie Sparks 10/09/21 08:45> - Psychiatric History Pschychiatric History:: Reports:: Depression <Edie Sparks 10/09/21 08:45> Family Hx:: Coronary Artery Disease <Edie Sparks 10/09/21 08:45> Review of Systems - Constitutional Reports fatigue, Reports lack of energy, Denies fever(s) <Edie Sparks 10/09/21 08:57> - Eyes Denies change in vision <Penaloza
--- NOTE | 2021-10-09 08:55 | SW/DCPLANNER ---
Addendum entered by Kimber Browning 10/11/21 10:04: Updated patient information has been faxed to Shikha ramirez/ [facility]. Discharge date is unknown at this time. Original Note: This patient currently resides at [facility]. I spoke with Shikha to confirm that this patient is under private pay. I will continue to follow up with Shikha regarding this patient and I will fax updated patient information. Discharge date is unknown at this time.
--- NOTE | 2021-10-09 11:32 | HMH.GSCON ---
*Admission Date: 10/09/21 *Reason for consult:: Rectal bleeding *History of present illness: Patient is an 80-year-old half-way resident at [facility] with a history of dementia, previous strokes, diabetes, congestive heart failure. She had a recent admission about 1 week ago for rectal bleeding. This was felt to be possibly due to disimpaction. She was brought to [facility] via ambulance after she had several bloody stools with clots and had some dizziness. Evaluation in the emergency department revealed hemoglobin of 6.7. She was transfused 2 units of packed red blood cells with resultant hemoglobin of 8.2. She did have an EGD and colonoscopy performed 3 months ago which revealed diverticulosis. Recent hemoglobins have been in the 7-9 range. Hemoglobin last year was in the 13-14 range. She has had numerous hospitalizations. Patient currently in no acute distress. Tolerated diabetic diet this morning without issues. Review of Systems - Review of Systems Review of systems:: pertinent systems reviewed and negative unless documented below - *Neurologic Reports dizziness, Denies abnormal speech, Denies confusion, Denies seizure-like activity [facility] History Medical History: Reports:: Atherosclerotic Heart Disease, Cancer (SKIN), Congestive Heart Failure, Congenital Heart Disease, Coronary Artery Disease, Cerebrovascular Accident, Deep Vein Thrombosis, Depression, Diabetes Mellitus Type 2, Gastroesophageal Reflux Disease(GERD), Gastrointestinal Bleed, Hyperlipidemia, Hypertension, Renal Insufficiency, Urinary Tract Infection Denies:: Diabetes Mellitus Type 1, Internal Pacemaker, MRSA, Seizures *Have you ever received a pneumonia vaccine?: Yes *Have you received a flu vaccine this season?: Yes Other Medical History: Reports: Anemia, Arthritis, Hypothyroidism, Thyroid Disease Other Surgeries: Yes: Appendectomy, Cardiac Catheterization, Cholecystectomy, Colonoscopy, Coronary Stent, EGD, Hernia Repair, Hysterectomy-Total, Skin Cancer Excision, Other. No: Pacemaker Amputation: No Fractures: Yes (L humerus, R humerus) - *Social History Last grade of school completed: High school graduate Smoking Status: Never smoker Alcohol Intake: never Alcohol Intake Frequency:: other Substance Use Type: denies use *Occupational Status:: retired Housing: half-way Household Members: spouse *Travel in the last 8 weeks: None - Psychiatric History Pschychiatric History:: Reports:: Depression Family Hx:: Coronary Artery Disease Meds Home Medications Medication Instructions Recorded Confirmed Type cyanocobalamin (vitamin B-12) 1,000 mcg PO DAILY 02/10/18 10/08/21 History 1,000 mcg tablet pravastatin 80 mg tablet 80 mg PO HS 02/10/18 10/08/21 History Calcium Carbonate/Vitamin D3 1 tab PO DAILY 02/05/21 10/08/21 History [Calcium 600-Vit D3 800 Tablet] carvediloL [Carvedilol 6.25mg Tab] 6.25 mg PO BID 02/05/21 10/08/21 History Levothyroxine Sodium 150 mcg PO DAILY 02/08/21 10/08/21 History [Levothyroxine 150mcg (0.15mg) Tab] clopidogrel 75 mg tablet 75 mg PO DAILY tab 03/24/21 10/08/21 History Cetirizine HCl 10 mg PO DAILY 03/31/21 10/08/21 History Pantoprazole Sodium [Protonix 40mg 40 mg PO DAILY 03/31/21 10/08/21 History tablet] Sennosides [Senna] 8.6 mg PO BIDP PRN 03/31/21 10/08/21 History Ropinirole HCl [Requip 0.25mg 0.25 mg PO HS 04/10/21 10/08/21 History Tablet] Furosemide [Furosemide 40MG tAB*] 40 mg PO DAILY 04/25/21 10/08/21 History Ascorbate Calcium [Calcium 500 mg PO DAILY 07/13/21 10/08/21 History Ascorbate] Multivitamin 1 each PO DAILY 07/13/21 10/08/21 History ondansetron HCL [Ondansetron 4mg 4 mg PO Q6HP PRN 07/13/21 10/08/21 History tab*] Ferrous Sulfate [Ferosul] 325 mg PO DAILY 08/16/21 10/08/21 History Aspirin 81 mg PO DAILY 09/03/21 10/08/21 History Potassium Chloride [Micro-K 10mEq 10 meq PO DAILY 09/03/21 10/08/21 History cap] lisinopriL [Lisinopril] 20
[2021-10-09 17:21] LABS: POC Glucose,Bedside 168 (70-110)
[2021-10-09 17:21] LABS: POC Glucose,Bedside 116 (70-110)
[2021-10-10] VITALS: BP 131/62; PULSE 76; RESP 18; TEMP 36.9; O2SAT 95
[2021-10-10 04:00] VITALS: BP 142/64; PULSE 83; RESP 16; TEMP 36.9; O2SAT 95
[2021-10-10 05:38] VITALS: BMI 39.0
[2021-10-10 07:05] LABS: Hematocrit 25.1 % (37.0-47.0)
[2021-10-10 08:00] VITALS: BP 149/51; PULSE 71; RESP 16; TEMP 36.9; O2SAT 96
--- NOTE | 2021-10-10 08:45 | HMH.ACPN2 ---
<Edie Sparks - Last Filed: 10/10/21 10:07> Internal Medicine - PN: Subj *Date: 10/10/21 *Time: 10:07 Interval history: Patient continues to have liquid stools. Nurses charted for yesterday and patient states she has had another one just now. Nurses chart that stools are dark red. Patient has some lower abdominal discomfort at times. She is also periodically nauseated but has not vomited. She is able to eat. She denies chest pain and shortness of breath. H&H today is 05/24.1 Exam Vital signs and Labs for Last 24 Hours: Temp Pulse Resp BP Pulse Ox 98.5 F 71 16 149/51 H 96 10/10/21 08:00 10/10/21 08:00 10/10/21 08:00 10/10/21 08:00 10/10/21 08:00 Laboratory Results - last 24 hr 10/09/21 12:00: POC Glucose 116 H 10/09/21 15:52: POC Glucose 168 H 10/10/21 05:19: Hgb 8.0 L, Hct 25.1 L I & O for Last 24 hours: Intake & Output 10/07/21 10/08/21 10/09/21 10/10/21 11:59 11:59 11:59 11:59 Intake Total 1520 / 1520 840 / 840 Balance 1520 / 1520 840 / 840 Weight 223 lb 9 oz 228 lb 14.4 oz - Constitutional no acute distress - *Routine Respiratory Exam Present: CTA bilaterally - *Routine Cardiovascular Exam Present: RRR, murmur - *Routine Abdominal Exam Present: soft, normoactive bowel sounds. Absent: tenderness, distended - *Routine Extremities Exam Present: edema. Absent: calf tenderness Assessment and Plan (1) Blood loss anemia Status: Acute Category: Medical Code(s): D50.0 - Iron deficiency anemia secondary to blood loss (chronic) (2) Lower GI bleed Status: Acute Category: Medical Code(s): K92.2 - Gastrointestinal hemorrhage, unspecified (3) Diverticulosis Status: Acute Category: Medical Code(s): K57.90 - Diverticulosis of intestine, part unspecified, without perforation or abscess without bleeding (4) CAD (coronary artery disease) Status: Chronic Qualifiers: Coronary Disease-Associated Artery/Lesion type: ruby artery [place] vs. transplanted heart: ruby heart Associated angina: without angina Qualified Code(s): I25.10 - Atherosclerotic heart disease of ruby coronary artery without angina pectoris Category: Medical Code(s): I25.10 - Atherosclerotic heart disease of ruby coronary artery without angina pectoris (5) Diabetes mellitus Status: Chronic Qualifiers: Diabetes mellitus type: type 1 Diabetes mellitus complication status: with other specified complication Qualified Code(s): E10.69 - Type 1 diabetes mellitus with other specified complication Category: Medical Code(s): E11.9 - Type 2 diabetes mellitus without complications (6) History of CVA (cerebrovascular accident) Status: Chronic Category: Medical Code(s): Z86.73 - Personal history of transient ischemic attack (TIA), and cerebral infarction without residual deficits (7) Hypertension Status: Chronic Qualifiers: Hypertension type: primary hypertension Qualified Code(s): I10 - Essential (primary) hypertension Category: Medical Code(s): I10 - Essential (primary) hypertension (8) Hypothyroid Status: Chronic Qualifiers: Hypothyroidism type: unspecified Qualified Code(s): E03.9 - Hypothyroidism, unspecified Category: Medical Code(s): E03.9 - Hypothyroidism, unspecified (9) Renal insufficiency Status: Chronic Category: Medical Code(s): N28.9 - Disorder of kidney and ureter, unspecified - Assessment and plan all Dx Assessment and Plan for all problems:: Patient has been seen by Dr. Messina, surgeon. Note appreciated. <Harry Cotter - Last Filed: 10/10/21 16:12> Internal Medicine - PN: Subj *Date: 10/10/21 *Time: 16:11 Exam Vital signs and Labs for Last 24 Hours: Temp Pulse Resp BP Pulse Ox 98.9 F 66 16 140/50 L 100 10/10/21 15:59 10/10/21 15:59 10/10/21 15:59 10/10/21 15:59 10/10/21 15:59 Laboratory Results - last 24 hr 10/09/21 12:00: POC Glucose 116 H
[2021-10-10 14:14] LABS: Hemoglobin 7.5 g/dL (12.2-16.2)
--- NOTE | 2021-10-10 15:42 | HMH.GSPN ---
Subjective Narrative: Patient without significant complaints. Reportedly earlier in the day she had had some dark reddish bowel movements. They have become more black. She denies any abdominal pain. Progress Note: A&P (1) Blood loss anemia Status: Acute (2) Lower GI bleed Status: Acute (3) Diverticulosis Status: Acute (4) CAD (coronary artery disease) Status: Chronic (5) Diabetes mellitus Status: Chronic (6) History of CVA (cerebrovascular accident) Status: Chronic (7) Hypertension Status: Chronic (8) Hypothyroid Status: Chronic (9) Renal insufficiency Status: Chronic Assessment and Plan for All Diagnoses:: She has shown some continued clinical bleeding and has shown some decrease in her hemoglobin to 7.5. Given this I would plan for colonoscopy for diagnostic and potentially therapeutic purposes tomorrow. Exam Vital signs and Labs for Last 24 Hours: Temp Pulse Resp BP Pulse Ox 98.5 F 71 16 149/51 H 96 10/10/21 08:00 10/10/21 08:00 10/10/21 08:00 10/10/21 08:00 10/10/21 08:00 Laboratory Results - last 24 hr 10/09/21 12:00: POC Glucose 116 H 10/09/21 15:52: POC Glucose 168 H 10/10/21 05:19: Hgb 8.0 L, Hct 25.1 L 10/10/21 13:55: Hgb 7.5 L, Hct 24.0 L I & O for Last 24 hours: Intake & Output 10/08/21 10/09/21 10/10/21 10/11/21 11:59 11:59 11:59 11:59 Intake Total 1520 / 1520 840 / 840 360 / 360 Balance 1520 / 1520 840 / 840 360 / 360 Weight 223 lb 9 oz 228 lb 14.4 oz - *Routine Abdominal Exam Present: soft. Absent: tenderness
[2021-10-10 15:59] VITALS: BP 140/50; PULSE 66; RESP 16; TEMP 37.2; O2SAT 100
[2021-10-10 17:43] LABS: POC Glucose,Bedside 187 (70-110)
[2021-10-10 17:43] LABS: POC Glucose,Bedside 230 (70-110)
[2021-10-10 17:43] LABS: POC Glucose,Bedside 154 (70-110)
--- NOTE | 2021-10-10 18:15 | PC.NURSE ---
Pt has rested in her bed most of the shift but has been up to the chair since approx 1500. pt tolerated walking to the chair with assistance, well. nad noted. pt lung sounds are active in all quads. pt ble have edema 2+ non pitting. pt is alert and oriented x4.
[2021-10-10 20:00] VITALS: BP 157/67; PULSE 69; RESP 18; TEMP 36.5; O2SAT 99
[2021-10-10 20:19] LABS: POC Glucose,Bedside 137 (70-110)
[2021-10-11] VITALS (12 sets, daily range): BP systolic 88–168; BP diastolic 42–84; PULSE 70–85; RESP 16–20; TEMP 36.3–36.9; O2SAT 94–99; BMI 38.2
[2021-10-11 06:16] LABS: POC Glucose,Bedside 153 (70-110)
[2021-10-11 06:45] LABS: Basophils % 0.7 % (0.1-2.0); Eosinophils # 0.1 K/mm3 (0.0-0.4); Eosinophils % 3.4 % (0.1-12.0); Hematocrit 26.1 % (37.0-47.0); Lymphocytes # 1.3 K/mm3 (0.7-4.5); Lymphocytes % 46.2 % (10-50); Mean Corpuscular HGB Conc 31.9 g/dL (31.8-35.4); Mean Corpuscular Volume 94.1 fl (81-99); Mean Platelet Volume 7.7 fl (7.4-10.4); Monocytes # 0.1 K/mm3 (0.1-1.0); Neutrophils # 1.3 K/mm3 (1.8-7.8); Neutrophils % 45.7 % (37.0-80.0); Platelet Count 243 K/mm3 (142-424); Red Blood Count 2.78 M/mm3 (4.20-5.40); Red Cell Distribution Width 16.6 % (11.5-17.5); White Blood Count 2.9 K/mm3 (4.8-10.8)
[2021-10-11 07:29] LABS: Hemoglobin 8.3 g/dL (12.2-16.2)
--- NOTE | 2021-10-11 07:53 | P.PN_ITS ---
[facility] Anesthesia Checklist - Patient Identification Patient Identification: Arm Band - Structural Data Admitted From: Inpatient Planned Operative Procedure/s: Colonoscopy Consent for Planned Operative Procedure(s) Verified: Yes - NPO Status Verified Time NPO: 00:00 - Airway Assessment C-Spine Mobility Assessed: Yes TMJ Mobility Assessed: Yes Dentition: Edentulous - Neurological Assessment Level of Consciousness: Awake Hx Seizures: No Numbness or tingling in extremities: No - Anesthesia Plan Anesthesia Risk discussed: Yes Anesthesia Plan: Verified ASA Class: III Anesthesia Type: MAC [facility] History I have reviewed the patient's past medical history: Yes Medical History: Reports:: Atherosclerotic Heart Disease, Cancer (SKIN), Congestive Heart Failure, Congenital Heart Disease, Coronary Artery Disease, Cerebrovascular Accident, Deep Vein Thrombosis, Depression, Diabetes Mellitus Type 2, Gastroesophageal Reflux Disease(GERD), Gastrointestinal Bleed, Hyperlipidemia, Hypertension, Renal Insufficiency, Urinary Tract Infection Denies:: Diabetes Mellitus Type 1, Internal Pacemaker, MRSA, Seizures *Have you ever received a pneumonia vaccine?: Yes *Have you received a flu vaccine this season?: Yes Other Medical History: Reports: Anemia, Arthritis, Hypothyroidism, Thyroid Disease Anesthesia experience/problems:: None Other Surgeries: Yes: Appendectomy, Cardiac Catheterization, Cholecystectomy, Colonoscopy, Coronary Stent, EGD, Hernia Repair, Hysterectomy-Total, Skin Cancer Excision, Other. No: Pacemaker Amputation: No Fractures: Yes (L humerus, R humerus) - *Social History Last grade of school completed: High school graduate Smoking Status: Never smoker Alcohol Intake: never Alcohol Intake Frequency:: other Substance Use Type: denies use *Occupational Status:: retired Housing: [facility] Household Members: spouse *Travel in the last 8 weeks: None - Psychiatric History Pschychiatric History:: Reports:: Depression Family Hx:: Coronary Artery Disease
--- NOTE | 2021-10-11 08:41 | P.PCN_ITS ---
- Procedure: Date: 10/11/21 Patient Date of :: 1940 Procedure Performed:: Total colonoscopy to terminal ileum Indications:: Patient is an 80-year-old residential resident at [facility] with a history of dementia, previous strokes, diabetes, congestive heart failure. She had a recent admission about 1 week ago for rectal bleeding. This was felt to be possibly due to disimpaction. She was brought to [facility] via ambulance after she had several bloody stools with clots and had some dizziness. Evaluation in the emergency department revealed hemoglobin of 6.7. She was transfused 2 units of packed red blood cells with resultant hemoglobin of 8.2. She did have an EGD and colonoscopy performed 3 months ago which revealed diverticulosis. Recent hemoglobins have been in the 7-9 range. Hemoglobin last year was in the 13-14 range. She has had numerous hospitalizations. Patient had passed some stools consistent with old blood. She had decreased hemoglobin to 7.5. Plan was made for colonoscopy. She did u ndergo bowel preparation yesterday Performing Provider:: Sang Messina MD Referring Provider:: Je Cotter MD Sedation:: MAC sedation Procedure:: Patient was taken to endoscopy procedure room. She was positioned in lateral decubitus position. Adequate intravenous sedation was achieved with anesthesia titration of propofol. Variable stiffness Olympus colonoscope was inserted via the anus. It was advanced to the cecum with some minor difficulty due to floppiness and redundancy of the colon. The ileocecal valve and appendiceal orifice were clearly identified. Colonic preparation was poor to fair as there was some blood clots and particulate stool throughout the colon. However decent visualization was achieved with thorough irrigation and suctioning. Colonoscope was able to be advanced a short distance into the terminal ileum which was grossly normal. There was no evidence of any blood within the terminal ileum. There was old blood and some clots throughout the colon however. Colonoscope was slowly withdrawn through the colon with thorough irrigation and suctioning performed. There was significant left-sided diverticulosis. There was noted to be no obvious active bleeding but as stated above, visualization was suboptimal. Retroflexion within the rectum revealed no evidence of any pathologic internal hemorrhoids. Colonoscope was withdrawn. Findings:: She had some old blood clots and stool throughout the colon. No obvious blood within the ileum Suboptimal preparation Diverticulosis No obvious evidence of active bleeding Recommendations:: Presumed diverticular bleed which is likely now resolved. Continue expectant management. Complications:: None immediately apparent Estimated blood obtained (mL): 0
--- NOTE | 2021-10-11 08:49 | PC.NURSE ---
Patient off floor at this time, in OR
[2021-10-11 11:48] LABS: POC Glucose,Bedside 161 (70-110)
[2021-10-11 16:25] LABS: POC Glucose,Bedside 219 (70-110)
--- NOTE | 2021-10-11 16:30 | HMH.ACPN2 ---
<Meg Lopez - Last Filed: 10/11/21 16:30> Internal Medicine - PN: Subj *Date: 10/11/21 *Time: 16:30 Interval history: Patient states she is feeling a little bit better. She had a scope done this morning. She has some minimal abdominal pain but has not had any further stools. She was able to tolerate lunch. Exam Vital signs and Labs for Last 24 Hours: Temp Pulse Resp BP Pulse Ox 98.4 F 76 16 121/62 95 10/11/21 14:59 10/11/21 14:59 10/11/21 14:59 10/11/21 14:59 10/11/21 14:59 Laboratory Results - last 24 hr 10/09/21 20:44: POC Glucose 230 H 10/10/21 12:07: POC Glucose 187 H 10/10/21 16:46: POC Glucose 154 H 10/10/21 20:12: POC Glucose 137 H 10/11/21 06:08: POC Glucose 153 H 10/11/21 06:30: WBC 2.9 L D, RBC 2.78 L, Hgb 8.3 L D, Hct 26.1 L, MCV 94.1, MCH 30.0, MCHC 31.9, RDW 16.6, Plt Count 243, MPV 7.7, Neut % (Auto) 45.7, Lymph % (Auto) 46.2, [place] % (Auto) 4.0, Eos % (Auto) 3.4, Baso % (Auto) 0.7, Neut # (Auto) 1.3 L, Lymph # (Auto) 1.3, [place] # (Auto) 0.1, Eos # (Auto) 0.1, Baso # (Auto) 0.0 10/11/21 11:37: POC Glucose 161 H 10/11/21 16:10: POC Glucose 219 H I & O for Last 24 hours: Intake & Output 10/09/21 10/10/21 10/11/21 10/12/21 11:59 11:59 11:59 11:59 Intake Total 1520 / 1520 840 / 840 360 / 360 360 / 360 Balance 1520 / 1520 840 / 840 360 / 360 360 / 360 Weight 223 lb 9 oz 228 lb 14.4 oz 224 lb 6.4 oz - Constitutional no acute distress - *Routine Respiratory Exam Present: CTA bilaterally - *Routine Cardiovascular Exam Present: RRR - *Routine Abdominal Exam Present: soft, normoactive bowel sounds, tenderness (mild diffuse), distended - *Routine Extremities Exam Present: edema (trace bilaterally). Absent: cyanosis, clubbing - *Routine Skin Exam Present: pallor, warm. Absent: rash - *Routine Neurological Exam Present: alert, oriented X3 Assessment and Plan (1) Blood loss anemia Status: Acute Category: Medical Code(s): D50.0 - Iron deficiency anemia secondary to blood loss (chronic) (2) Lower GI bleed Status: Acute Category: Medical Code(s): K92.2 - Gastrointestinal hemorrhage, unspecified (3) Diverticulosis Status: Acute Category: Medical Code(s): K57.90 - Diverticulosis of intestine, part unspecified, without perforation or abscess without bleeding (4) CAD (coronary artery disease) Status: Chronic Qualifiers: Coronary Disease-Associated Artery/Lesion type: [place] artery [place] vs. transplanted heart: [place] heart Associated angina: without angina Qualified Code(s): I25.10 - Atherosclerotic heart disease of [place] coronary artery without angina pectoris Category: Medical Code(s): I25.10 - Atherosclerotic heart disease of [place] coronary artery without angina pectoris (5) Diabetes mellitus Status: Chronic Qualifiers: Diabetes mellitus type: type 1 Diabetes mellitus complication status: with other specified complication Qualified Code(s): E10.69 - Type 1 diabetes mellitus with other specified complication Category: Medical Code(s): E11.9 - Type 2 diabetes mellitus without complications (6) History of CVA (cerebrovascular accident) Status: Chronic Category: Medical Code(s): Z86.73 - Personal history of transient ischemic attack (TIA), and cerebral infarction without residual deficits (7) Hypertension Status: Chronic Qualifiers: Hypertension type: primary hypertension Qualified Code(s): I10 - Essential (primary) hypertension Category: Medical Code(s): I10 - Essential (primary) hypertension (8) Hypothyroid Status: Chronic Qualifiers: Hypothyroidism type: unspecified Qualified Code(s): E03.9 - Hypothyroidism, unspecified Category: Medical Code(s): E03.9 - Hypothyroidism, unspecified (9) Renal insufficiency Status: Chronic Category: Medical Code(s): N28.9 - Disorder of kidney and ureter, unspecified - Assessment and plan all Dx Assessment and Plan for all
--- NOTE | 2021-10-11 17:15 | PC.NURSE ---
PT IS RESTING IN BED. NO COMPLAINTS OF DISCOMFORT. ALERT AND ORIENTED X3. TOLERATING BLAND DIET. LUNG SOUNDS CLEAR. ABDOMEN SOFT/NON TENDER WITH ACTIVE BOWEL SOUNDS. PT STATES SHE IS HOPING TO GET TO GO BACK TO [facility] TOMORROW. WILL CONTINUE TO MONITOR.
[2021-10-11 22:06] LABS: POC Glucose,Bedside 235 (70-110)
[2021-10-12 04:00] VITALS: BP 102/68; PULSE 73; RESP 18; TEMP 36.6; O2SAT 98
[2021-10-12 05:00] VITALS: BMI 38.2
[2021-10-12 06:31] LABS: POC Glucose,Bedside 146 (70-110)
[2021-10-12 08:00] VITALS: BP 113/50; PULSE 76; RESP 18; TEMP 36.8; O2SAT 92
[2021-10-12 08:03] LABS: Hematocrit 23.1 % (37.0-47.0); Hemoglobin 7.4 g/dL (12.2-16.2)
--- NOTE | 2021-10-12 09:07 | HMH.ACPN2 ---
<Meg Lopez - Last Filed: 10/12/21 09:07> Internal Medicine - PN: Subj *Date: 10/12/21 *Time: 09:07 Interval history: Patient states she is feeling well this morning. She denies any pain and did sleep throughout the night. She has eaten some breakfast this morning. Exam Vital signs and Labs for Last 24 Hours: Temp Pulse Resp BP Pulse Ox 97.9 F 73 18 102/68 L 98 10/12/21 04:00 10/12/21 04:00 10/12/21 04:00 10/12/21 04:00 10/12/21 04:00 Laboratory Results - last 24 hr 10/11/21 11:37: POC Glucose 161 H 10/11/21 16:10: POC Glucose 219 H 10/11/21 21:25: POC Glucose 235 H 10/12/21 05:29: POC Glucose 146 H 10/12/21 07:52: Hgb 7.4 L, Hct 23.1 L I & O for Last 24 hours: Intake & Output 10/09/21 10/10/21 10/11/21 10/12/21 11:59 11:59 11:59 11:59 Intake Total 1520 / 1520 840 / 840 360 / 360 600 / 600 Balance 1520 / 1520 840 / 840 360 / 360 600 / 600 Weight 223 lb 9 oz 228 lb 14.4 oz 224 lb 6.4 oz 224 lb - Constitutional no acute distress - *Routine Respiratory Exam Present: CTA bilaterally - *Routine Cardiovascular Exam Present: RRR - *Routine Abdominal Exam Present: soft, normoactive bowel sounds. Absent: tenderness - *Routine Extremities Exam Present: edema (Bilateral lower extremities). Absent: cyanosis, clubbing - *Routine Skin Exam Present: pallor, warm. Absent: rash - *Routine Neurological Exam Present: alert, oriented X3 Assessment and Plan (1) Blood loss anemia Status: Acute Category: Medical Code(s): D50.0 - Iron deficiency anemia secondary to blood loss (chronic) (2) Lower GI bleed Status: Acute Category: Medical Code(s): K92.2 - Gastrointestinal hemorrhage, unspecified (3) Diverticulosis Status: Acute Category: Medical Code(s): K57.90 - Diverticulosis of intestine, part unspecified, without perforation or abscess without bleeding (4) CAD (coronary artery disease) Status: Chronic Qualifiers: Coronary Disease-Associated Artery/Lesion type: [place] artery [place] vs. transplanted heart: [place] heart Associated angina: without angina Qualified Code(s): I25.10 - Atherosclerotic heart disease of [place] coronary artery without angina pectoris Category: Medical Code(s): I25.10 - Atherosclerotic heart disease of [place] coronary artery without angina pectoris (5) Diabetes mellitus Status: Chronic Qualifiers: Diabetes mellitus type: type 1 Diabetes mellitus complication status: with other specified complication Qualified Code(s): E10.69 - Type 1 diabetes mellitus with other specified complication Category: Medical Code(s): E11.9 - Type 2 diabetes mellitus without complications (6) History of CVA (cerebrovascular accident) Status: Chronic Category: Medical Code(s): Z86.73 - Personal history of transient ischemic attack (TIA), and cerebral infarction without residual deficits (7) Hypertension Status: Chronic Qualifiers: Hypertension type: primary hypertension Qualified Code(s): I10 - Essential (primary) hypertension Category: Medical Code(s): I10 - Essential (primary) hypertension (8) Hypothyroid Status: Chronic Qualifiers: Hypothyroidism type: unspecified Qualified Code(s): E03.9 - Hypothyroidism, unspecified Category: Medical Code(s): E03.9 - Hypothyroidism, unspecified (9) Renal insufficiency Status: Chronic Category: Medical Code(s): N28.9 - Disorder of kidney and ureter, unspecified - Assessment and plan all Dx Assessment and Plan for all problems:: Patient's H&H has decreased again this morning. Surgery to follow. Patient may need an upper GI. <Harry Cotter - Last Filed: 10/12/21 13:44> Internal Medicine - PN: Subj *Date: 10/12/21 *Time: 13:43 Exam Vital signs and Labs for Last 24 Hours: Temp Pulse Resp BP Pulse Ox 98.3 F 76 18 113/50 L 92 L 10/12/21 08:00 10/12/21 08:00 10/12/21 08:00 10/12/21 08:00 10/12/21 08:00 La
[2021-10-12 09:18] LABS: Coronavirus 19, PCR Not Detected (NotDetected); Influenza A, PCR Not Detected (NotDetected); Influenza B, PCR Not Detected (NotDetected)
--- NOTE | 2021-10-12 10:22 | HMH.GSPN ---
Subjective Narrative: Patient without complaints. Progress Note: A&P (1) Blood loss anemia Status: Acute (2) Lower GI bleed Status: Acute (3) Diverticulosis Status: Acute (4) CAD (coronary artery disease) Status: Chronic (5) Diabetes mellitus Status: Chronic (6) History of CVA (cerebrovascular accident) Status: Chronic (7) Hypertension Status: Chronic (8) Hypothyroid Status: Chronic (9) Renal insufficiency Status: Chronic Assessment and Plan for All Diagnoses:: Some slight decrease in hemoglobin. Given the findings of her colonoscopy likely diverticular bleed which has resolved and decreasing hemoglobin likely equilibration. I would not pursue any additional intervention at this time. Plan to continue to monitor hemoglobin for stability. May ultimately require small bowel follow-through for small bowel investigation for completeness. Exam Vital signs and Labs for Last 24 Hours: Temp Pulse Resp BP Pulse Ox 98.3 F 76 18 113/50 L 92 L 10/12/21 08:00 10/12/21 08:00 10/12/21 08:00 10/12/21 08:00 10/12/21 08:00 Laboratory Results - last 24 hr 10/11/21 11:37: POC Glucose 161 H 10/11/21 16:10: POC Glucose 219 H 10/11/21 21:25: POC Glucose 235 H 10/12/21 05:29: POC Glucose 146 H 10/12/21 07:52: Hgb 7.4 L, Hct 23.1 L 10/12/21 08:00: SARS-CoV-2 (PCR) Not detected, Influenza A Untype (PCR) Not detected, Influenza Type B (PCR) Not detected I & O for Last 24 hours: Intake & Output 10/09/21 10/10/21 10/11/21 10/12/21 11:59 11:59 11:59 11:59 Intake Total 1520 / 1520 840 / 840 360 / 360 840 / 840 Balance 1520 / 1520 840 / 840 360 / 360 840 / 840 Weight 223 lb 9 oz 228 lb 14.4 oz 224 lb 6.4 oz 224 lb - *Routine Abdominal Exam Present: soft
--- NOTE | 2021-10-12 12:45 | HMH.DCSUM ---
General - General Admission date:: 10/08/21 <CyndeeHarry esparza - 10/12/21 13:42> 10/08/21 <Meg Lopez - 10/12/21 12:52> Discharge date: 10/12/21 <Meg Lopez - 10/12/21 12:52> HPI HPI: Ms. Moctezuma is an 80-year-old female resident at [facility] with a history of dementia, prior strokes, diabetes mellitus, congestive heart failure, and urinary tract infections. She was brought to [facility] emergency room via ambulance from [facility] after experiencing several bloody stools with clots. She states she was also dizzy and her blood pressure was low. Patient recalls impaction being removed several weeks ago prior to her last hospitalization. She was unable to recall how her bowels moved after her discharge last week. She denies any recent nausea and has had no vomiting. She was eating as usual. She denies abdominal pain. She was able to ambulate in the [facility]. She feels her stomach rumbling. With evaluation in the emergency room hemoglobin was found to be 6.7 with a hematocrit of 21.6.Pressure was good at 114/48. She was thus admitted for blood administration and ongoing observation.With monitoring of stools and H&H. Patient is noted to have had several recent hospital admissions with the most recent 10/01-10/02/2021 with rectal bleeding. H&H were stable at that time and she was felt to have had bleeding after removal of impaction. She had no further bloody stools while hospitalized and thus went back to [facility]. Noted diverticulosis from recent EGD and colonoscopy 3 months ago. She has remained on Plavix due to previous stroke and TIA's. This a.m. patient is comfortable. She has eaten all of her breakfast. She denies chest pain and shortness of breath. Repeat H&H this morning at 8.2 and 24.9. She has completed her breakfast. <Meg Lopez - 10/12/21 12:52> Hospital Course Hospital Course: This was the patient's second admission in 10 days with lower GI bleeding. She is known to have diverticulosis by recent colonoscopy. She had more significant blood loss with this episode, therefore surgery was consulted and she received 2 units of packed red blood cells. Her H&H did increase to greater than 8. Her Plavix was held and her H&H was monitored. She was seen in consultation by Dr. Messina who felt she likely had a diverticular bleed. He did not want to pursue sigmoidoscopy or colonoscopy initially. He wanted to monitor her H&H and if she continued bleeding, he felt she would need a colonoscopy for intervention. She continued to have liquid stools that were dark red with some lower abdominal discomfort. She was able to eat small amounts. Her hemoglobin did increase back down to 7.[address] Messina wanted to perform a colonoscopy. This was done on 10/11/2021 and he found some old blood clots and stool throughout the colon, no obvious blood within the ileum, and diverticulosis but with no obvious source of active bleeding. He still felt she had a diverticular bleed which was resolved and wanted to continue expectant management. She was able to tolerate a diet and was passing gas after her procedure. Her H&H improved, but then decreased again on 10/12/2021. Dr. Messina felt the decreasing hemoglobin was likely equilibration and he did not feel any additional intervention would be needed. He felt she may ultimately require a small bowel follow-through for small bowel investigation for completeness. She was stable to be discharged back to [facility] and will need continued monitoring of her H&H.. <Meg Lopez - 10/12/21 12:52> Objective Vital signs: Temp Pulse Resp BP Pulse Ox 98.3 F 76 18 113/50 L 92 L 10/12/21 08:00 10/12/21 08:00 10/12/21 08:00 10/12/21 08:00 10/12/21 08:00 <Harry Cotter - 10/12/21 13:42> Temp Pulse Resp BP Pulse Ox 98.3 F 76 18 113/50 L 92 L 0
[2021-10-12 22:36] LABS: POC Glucose,Bedside 222 (70-110)
== END 2021-10-12 17:00 ==
LOC: ER 16:54 → 2ND 18:21
PROVIDERS: Surgery; Admitting Provider Family Medicine; Emergency Provider Emergency Medicine; Visit Provider Family Medicine
PROC: 0DJD8ZZ Inspection of Lower Intestinal Tract, Via Natural or Artificial Opening Endoscopic (ICD-10-PCS; principal; 2021-10-11 08:00)
DX: D50.0 Iron deficiency anemia secondary to blood loss (chronic) (principal); K57.30 Diverticulosis of large intestine without perforation or abscess without bleeding; K92.2 Gastrointestinal hemorrhage, unspecified; I11.0 Hypertensive heart disease with heart failure; E11.9 Type 2 diabetes mellitus without complications; I25.10 Atherosclerotic heart disease of native coronary artery without angina pectoris; Z20.822 Contact with and (suspected) exposure to COVID-19; Z79.4 Long term (current) use of insulin; Z95.5 Presence of coronary angioplasty implant and graft; Z79.899 Other long term (current) drug therapy; I50.9 Heart failure, unspecified; E03.9 Hypothyroidism, unspecified; Z86.73 Personal history of transient ischemic attack (TIA), and cerebral infarction without residual deficits
CPT/HCPCS: 36430; 45378; G0378; 36415; 80053; 82272; 82962; 85014; 85018; 85025; 86850; 99284; C9803; G0328; P9016; U0003; U0005

== ENCOUNTER 2021-10-17 08:12 | Outpatient (CLI) | payer MEDICARE, OTHER, SELFPAY ==
[2021-10-17] VITALS (19 sets, daily range): BP systolic 122–162; BP diastolic 53–80; PULSE 73–83; RESP 18–20; TEMP 36.3–36.6; O2SAT 97–98; BMI 38.0
[2021-10-17 08:59] LABS: Hematocrit 21.8 % (37.0-47.0)
[2021-10-17 09:03] LABS: Hemoglobin 6.9 g/dL (12.2-16.2)
--- NOTE | 2021-10-17 09:07 | PC.NURSE ---
Cassandra Alonso called Alison Mclain RN at 09 to report hgb-6.9/hct-21.8. RN repeated and verified pt name, , and lab value. Result called to Dr. Morrow's office staff-order noted to proceed with blood transfusion order as ordered for 2 units prbc's.
[2021-10-17 16:16] LABS: Hemoglobin 9.6 g/dL (12.2-16.2)
--- NOTE | 2021-10-17 16:37 | PC.NURSE ---
report called to Leisa Mills, nurse at [facility]. pt in route and updated report given.
== END 2021-10-17 16:05 | disposition home or self-care (01) ==
LOC: INF 08:13
PROVIDERS: PCP Family Medicine; Visit Provider Emergency Medicine
DX: D64.9 Anemia, unspecified (principal)
CPT/HCPCS: 36430; 85014; 85018; 86850; P9016

== ENCOUNTER → 2021-12-04 11:14 | Outpatient (CLI) | payer MEDICARE, OTHER, SELFPAY ==
--- NOTE | 2021-12-04 12:29 | XR_ITS ---
FINAL REPORT CLINICAL HISTORY: PE, soa, edema COMPARISON: October 01, 2021 FINDINGS: Two views of the chest were obtained. The heart size is normal. The mediastinum is normal. There is worsening pulmonary vascular congestion. There is worsening bibasilar atelectasis or pneumonia. There is no pneumothorax. There is chronic deformity of the bilateral humeral heads. IMPRESSION: Worsening pulmonary vascular congestion with worsening bibasilar atelectasis or pneumonia. Reviewed, Interpreted and Dictated by Sang Herzog III, MD Transcribed by Dariel Pozo Authenticated by Sang Herzog III, MD on 12/04/2021 01:11:21 PM [facility]
== END ==
PROVIDERS: PCP Family Medicine; Visit Provider Nurse Practitioner Family
DX: J90 Pleural effusion, not elsewhere classified (principal); I50.9 Heart failure, unspecified
CPT/HCPCS: 71046; 93306

== ENCOUNTER 2021-12-04 13:53 | Inpatient (IN) | payer MEDICARE, OTHER, SELFPAY ==
[2021-12-04] VITALS (13 sets, daily range): BP systolic 154–185; BP diastolic 57–138; PULSE 74–77; RESP 13–22; TEMP 37.2; O2SAT 85–100; BMI 39.1
--- NOTE | 2021-12-04 14:06 | ECG_ITS ---
APPROVED REPORT Exam: Resting ECG HR:75 bpm ECG Measurements Heart Rate 75 AXES IA 191 P 7 QRSd 117 QRS -39 QT 382 T -3 QTc 412 Conclusion SINUS RHYTHM LEFT AXIS DEVIATION [QRS AXIS < -30] INCOMPLETE RIGHT BUNDLE BRANCH BLOCK [90+ ms QRS DURATION, TERMINAL R IN V1/V2, 40+ ms S IN I/aVL/V4/V5/V6] MODERATE ST DEPRESSION [0.05+ mV ST DEPRESSION] ABNORMAL ECG UNCONFIRMED REPORT Electronically signed by : John Rosado MD 12/04/2021 19:46:28
[2021-12-04 14:39] LABS: Basophils % 0.7 % (0.1-2.0); Eosinophils # 0.1 K/mm3 (0.0-0.4); Eosinophils % 1.6 % (0.1-12.0); Hematocrit 31.2 % (37.0-47.0); Hemoglobin 9.3 g/dL (12.2-16.2); Lymphocytes # 1.5 K/mm3 (0.7-4.5); Lymphocytes % 29.2 % (10-50); Mean Corpuscular HGB Conc 29.9 g/dL (31.8-35.4); Mean Corpuscular Hemoglobin 28.9 pg (27.0-31.2); Mean Corpuscular Volume 96.7 fl (81-99); Mean Platelet Volume 8.3 fl (7.4-10.4); Monocytes # 0.5 K/mm3 (0.1-1.0); Monocytes % 9.2 % (1.7-9.3); Neutrophils # 3.1 K/mm3 (1.8-7.8); Neutrophils % 59.3 % (37.0-80.0); Platelet Count 309 K/mm3 (142-424); Red Blood Count 3.23 M/mm3 (4.20-5.40); Red Cell Distribution Width 17.9 % (11.5-17.5); White Blood Count 5.1 K/mm3 (4.8-10.8)
[2021-12-04 14:40] LABS: Chloride 104 mmol/L (98-107); Sodium 138 mmol/L (136-145)
[2021-12-04 14:41] LABS: Potassium 4.5 mmoL/L (3.5-5.1)
[2021-12-04 14:44] LABS: Anion Gap 4.5 mEq/L (5-15); Blood Urea Nitrogen 16 mg/dl (7-17); Calcium 7.8 mg/dl (8.4-10.2); Carbon Dioxide 34 mmol/L (22.0-30.0); Creatinine Clearance Estimated 74 mL/min (50-200); Estimated Glomerular Filt Rate 60 ml/min (>60); GFR (African American) 73 ML/MIN (>60); Glucose 154 mg/dl (74-100)
[2021-12-04 14:54] LABS: Coronavirus 19, PCR Not Detected (NotDetected); Influenza A, PCR Not Detected (NotDetected); Influenza B, PCR Not Detected (NotDetected)
[2021-12-04 14:56] LABS: Troponin I 0.15 ng/ml (0.00-0.034)
[2021-12-04 16:08] LABS: NT Pro Brain Natriuretic Pep. 1130 pg/mL (0-450)
--- NOTE | 2021-12-04 16:16 | PC.NURSE ---
Dr Urrutia speaking with dr Manzo
--- NOTE | 2021-12-04 16:42 | HMH.EDGENADL ---
ED Disposition Clinical Impression: Congestive heart failure Disposition: Admitted As Inpatient Condition on Discharge: Good - Critical Care Critical Care Time: No Attestation: On 12/04/21, the high probability of a clinically significant, sudden or life threatening deterioration of the following system(s) required my full and direct attention, intervention and personal management. The time I documented below is in addition to time spent performing reported procedures but includes the following listed in this critical care notation. Medical Decision Making - Medical Records Medical records reviewed: Yes: I reviewed the patient's medical records. - Wojciech Inquiry Pt receiving controlled substance: No Vital Signs: 12/04/21 13:55 12/04/21 13:56 12/04/21 14:45 Temperature 99.0 F Temperature Source Oral Pulse Rate 76 Pulse Rate [Left Radial] 77 Respiratory Rate 20 13 Blood Pressure 156/65 H Blood Pressure [Right Arm] 168/67 H Blood Pressure Mean Blood Pressure Mean [Right Arm] 100 Blood Pressure Source [Right Arm] Automatic Cuff Blood Pressure Position [Right Arm] Sitting 02 Sat by Pulse Oximetry 85 L 99 99 Oxygen Delivery Method Room Air Nasal Cannula Oxygen Flow Rate (LPM) 4 12/04/21 14:53 12/04/21 15:00 12/04/21 15:31 Temperature Temperature Source Pulse Rate 74 76 75 Pulse Rate [Left Radial] Respiratory Rate 17 22 19 Blood Pressure 156/65 H 154/62 H 169/138 H Blood Pressure [Right Arm] Blood Pressure Mean 95 105 143 Blood Pressure Mean [Right Arm] Blood Pressure Source [Right Arm] Blood Pressure Position [Right Arm] 02 Sat by Pulse Oximetry 99 99 98 Oxygen Delivery Method Oxygen Flow Rate (LPM) 12/04/21 16:00 12/04/21 16:30 12/04/21 17:00 Temperature Temperature Source Pulse Rate 75 75 74 Pulse Rate [Left Radial] Respiratory Rate 20 21 20 Blood Pressure 181/73 H 171/57 H 165/64 H Blood Pressure [Right Arm] Blood Pressure Mean 109 95 97 Blood Pressure Mean [Right Arm] Blood Pressure Source [Right Arm] Blood Pressure Position [Right Arm] 02 Sat by Pulse Oximetry 99 99 100 Oxygen Delivery Method Oxygen Flow Rate (LPM) 12/04/21 17:30 12/04/21 18:33 Temperature 99.0 F Temperature Source Pulse Rate 74 74 Pulse Rate [Left Radial] Respiratory Rate 16 16 Blood Pressure 185/99 H 185/99 H Blood Pressure [Right Arm] Blood Pressure Mean 127 Blood Pressure Mean [Right Arm] Blood Pressure Source [Right Arm] Blood Pressure Position [Right Arm] 02 Sat by Pulse Oximetry 99 Oxygen Delivery Method Room Air Oxygen Flow Rate (LPM) - Lab Data Lab results reviewed: Yes: I reviewed the patient's lab results. Lab Results 12/04/21 14:10: WBC 5.1, RBC 3.23 L, Hgb 9.3 L, Hct 31.2 L, MCV 96.7, MCH 28.9, MCHC 29.9 L, RDW 17.9 H, Plt Count 309, MPV 8.3, Neut % (Auto) 59.3, Lymph % (Auto) 29.2, [place] % (Auto) 9.2, Eos % (Auto) 1.6, Baso % (Auto) 0.7, Neut # (Auto) 3.1, Lymph # (Auto) 1.5, [place] # (Auto) 0.5, Eos # (Auto) 0.1, Baso # (Auto) 0.0 12/04/21 14:10: Sodium 138, Potassium 4.5, Chloride 104, Carbon Dioxide 34 H, Anion Gap 4.5 L, BUN 16, Creatinine 0.90, Estimated Creat Clear 74, Estimated GFR 60, Est GFR ( Amer) 73, Glucose 154 H, Calcium 7.8 L, Troponin I 0.15 H 12/04/21 14:10: NT-Pro-B Natriuret Pep 1130 H 12/04/21 14:24: SARS-CoV-2 (PCR) Not detected, Influenza A Untype (PCR) Not detected, Influenza Type B (PCR) Not detected 12/04/21 15:25: Urine Color Yellow, Urine Appearance Clear, Urine pH 5.5, Ur Specific [place] 1.025, Urine Protein Negative, Urine Glucose (UA) Negative, Urine Ketones Negative, Urine Blood Negative, Urine Nitrate Negative, Urine Bilirubin Negative, Urine Urobilinogen 0.2, Ur Leukocyte Esterase Negative, Urine RBC Occasional, Urine WBC None, Ur Squamous Epith Cells Occasional, Urine Bacteria None 12/04/21 18:10: Troponin I 0.13 H Result diagrams: 12/04/21 14:10 12/04/21 14:1
--- NOTE | 2021-12-04 16:47 | PC.NURSE ---
Edie Sparks AUTO STRIPER in with pt.
--- NOTE | 2021-12-04 17:02 | HMH.HP ---
*Admission Date: 12/04/21 <Edie Sparks - 12/04/21 17:16> *Chief complaint: Cough and shortness of breath <Edie Sparks - 12/04/21 17:16> *History of present illness: Ms. Moctezuma is an 80-year-old female resident of [facility] with a history of dementia, prior strokes, diabetes mellitus, congestive heart failure, GI bleed, diverticulosis and urinary tract infections. She was brought to [facility] today for laboratory testing, chest x-ray, and an echocardiogram. When eating with her son she was told to go to the emergency room at which time she would be processed for admission to the hospital. She describes persistent shortness of breath and cough for the previous 2 weeks along with intermittent chest discomfort. She states the swelling in her legs has also progressively worsened and she now has edema in both arms. She has had several recent hospital admissions with the last being 10/08-10/12/2021 with GI bleeding. Surgery was consulted who felt she had a diverticular bleed. She did have a colonoscopy 10/11/2021 at which time old blood clots and stool were noted throughout the colon with no obvious source of active bleeding. She was discharged back to [facility] with monitoring of her H&H. With evaluation in the emergency room on this date Blood pressure was elevated at 168/67. O2 sats ranged from 85% on room air to 99% on O2 per nasal cannula at 4 L/min. Hemoglobin noted to be 9.3 with a hematocrit of 31.2. BNP was 1130. Sodium 138 and potassium 4.5 with a BUN of 16 and a creatinine of 0.9. Troponin I was elevated at 0.15. She did receive 40 of Lasix IV and a Dillard catheter was inserted. Chest x-ray revealed worsening pulmonary vascular congestion and worsening bibasilar atelectasis or pneumonia. Echocardiogram has been completed with pending results. <Edie Sparks - 12/04/21 17:42> [facility] History Medical History: Reports:: Atherosclerotic Heart Disease, Cancer (SKIN), Congestive Heart Failure, Congenital Heart Disease, Coronary Artery Disease, Cerebrovascular Accident, Deep Vein Thrombosis, Depression, Diabetes Mellitus Type 2, Gastroesophageal Reflux Disease(GERD), Gastrointestinal Bleed, Hyperlipidemia, Hypertension, Renal Insufficiency, Urinary Tract Infection Denies:: Diabetes Mellitus Type 1, Internal Pacemaker, MRSA, Seizures <ClareEdie 12/04/21 17:16> *Have you ever received a pneumonia vaccine?: No <ClareEdie 12/04/21 17:16> *Have you received a flu vaccine this season?: No <ClareEdie 12/04/21 17:16> Other Medical History: Reports: Anemia, Arthritis, Hypothyroidism, Thyroid Disease <SparksEdie 12/04/21 17:16> Other Surgeries: Yes: Appendectomy, Cardiac Catheterization, Cholecystectomy, Colonoscopy, Coronary Stent, EGD, Hernia Repair, Hysterectomy-Total, Skin Cancer Excision, Other. No: Pacemaker <ClareEdie 12/04/21 17:16> Amputation: No <SparksEdie 12/04/21 17:16> Fractures: Yes (L humerus, R humerus) <SparksEdie 12/04/21 17:16> - *Social History Smoking Status: Never smoker <SparksEdie 12/04/21 17:16> Alcohol Intake: never <SparksEdie 12/04/21 17:16> Alcohol Intake Frequency:: other <SparksEdie 12/04/21 17:16> Substance Use Type: denies use <SparksEdie 12/04/21 17:16> *Occupational Status:: retired <ClareEdie 12/04/21 17:16> Housing: retirement <SparksEdie 12/04/21 17:16> Household Members: other <ClareEdie 12/04/21 17:42> *Travel in the last 8 weeks: None <SparksEdie 12/04/21 17:42> - Psychiatric History Pschychiatric History:: Reports:: Depression <Edie Sparks 12/04/21 17:16> Family Hx:: Coronary Artery Disease <Edie Sparks 12/04/21 17:16> Review of Systems - Constitutional Reports fatigue, Reports lack of energy, Denies fever(s) <Edie Sparks 12/04/21 17:42> - Eyes Reports change in vision, Reports loss of vision <Edie Sparks 12/04/21 17:
--- NOTE | 2021-12-04 18:20 | PC.NURSE ---
CALLED DIETARY FOR DIET TRAY
--- NOTE | 2021-12-04 18:33 | PC.NURSE ---
Report given to Ling KEBEDE
[2021-12-04 18:49] LABS: Microscopic,Cath URINE MICROSCOPIC (MICROSCOPIC)
[2021-12-04 18:58] LABS: Troponin I 0.13 ng/ml (0.00-0.034)
--- NOTE | 2021-12-04 18:58 | PC.NURSE ---
Addendum entered by Emily Bearden CNA 12/05/21 01:19: CORRECTION [id number] ARRIVAL TIME TO FLOOR Original Note: PT ARRIVED TO FLOOR VIA STRETCHER FROM ED W/STAFF @ 1955
[2021-12-04 19:09] LABS: Appearance,Urine/Cath CLEAR (Clear); Bilirubin,Cath Negative (Negative); Blood, Urine/Cath Negative (Negative); Color,Urine/Cath YELLOW (Yellow); Glucose,Urine/Cath (UA) Negative (Negative); Ketones,Urine/Cath Negative (Negative); Leukocyte Esterase,Cath Negative (Negative); Nitrate,Cath Negative (Negative); PH,Urine/Cath 5.5 (5.0-8.5); Protein,Urine/Cath Negative (Negative); Specific Gravity, Urine/Cath 1.025 (1.005-1.030); Urobilinogen,Cath 0.2 EU/dl (0.2)
[2021-12-04 19:23] LABS: RBC,Urine/Cath Occasional # /hpf (0-3); Squamous Epithelial Ur./Cath Occasional #/hpf (0-5)
--- NOTE | 2021-12-04 20:00 | PC.WOUNDNOTE ---
pt's bottom at admission stage one noted on bilat buttocks
[2021-12-05] VITALS (21 sets, daily range): BP systolic 129–180; BP diastolic 42–89; PULSE 60–91; RESP 16–20; TEMP 36.6–37.4; O2SAT 2–99; BMI 40.1; BMI 40.0
--- NOTE | 2021-12-05 | IR_ITS ---
APPROVED REPORT Patient Location: Inpatient Day Care Provider: EDDIE Ogden RT (R) PROCEDURES Left heart catheterization Left ventriculogram Selective coronary angiogram Drug-eluting stent deployment to the proximal LAD Drug-eluting stent deployment to the ostial proximal dominant right coronary INDICATION Coronary artery disease, Acute non-ST elevation myocardial infarction Informed consent was obtained prior to the procedure. COMPLICATIONS None Estimated Blood Loss: Less than 10 ML TECHNIQUE One percent lidocaine used to anesthetize the right anterior aspect of the wrist. The right radial artery was accessed via the Seldinger technique. A 6 Citizen Of [place] sheath was placed in the right radial artery. 2.5 mg of verapamil, 800 mcg of nitroglycerin, 1mg Lidocaine and 5000 U Heparin were given through the arterial sheath. The papa catheter was also used to perform left heart catheterization, left ventriculogram and selective coronary angiogram. Therapeutic heparin was administered giving a therapeutic ACT. The guide catheter was placed in the left main artery and a Choice PT extra-support wire was placed distally in the LAD. Primary stenting could not be performed. Ultimately a guide liner was required along with deep seating of the guide catheter and eventually 1.25 mm balloon was used to eventually get through the stenosis. This was inflated at 15atm. This was followed by a 1.5 mm balloon followed by 2 mm balloon and then a 3 mm balloon. Eventually this allowed a 3 mm x 12 mm resolute [place] stent to be deployed in the proximal LAD at 24 doug reducing the critical stenosis to 0%. ADONAY-3 flow was present before and after the procedure. Following this the guide catheter was placed in the right coronary artery where the same guide liner and wire were used to traverse the severe disease in the proximal right coronary artery. Although there was some difficulty primary stenting could be performed with the assistance of a guide liner and a 3 mm x 38 mm resolute [place] stent was placed in the mid dominant right coronary at 24 doug. A 3 mm x 18 mm resolute Julián stent was placed proximal to the first stent yet still overlapping it flaring out into the ostium and deployed at 24 doug. A 3.5 x 12 mm balloon was then deployed at 24 doug to post dilate the ostium. ADONAY-3 flow was present before and after the procedure. At the end of procedure the apparatus was removed the sheath was removed and hemostasis was achieved using TR banding patient was transferred to the postop putting her stable condition ANGIOGRAPHIC RESULTS The left main artery Is moderately atheromatous with 10 to 20% diffuse stenoses The left anterior descending artery Has a proximal napkin ring greater than 90% stenosis which appears to represent either edge stent or in-stent restenosis. The remaining LAD is widely patent. This does cross a large ramus intermedius which has a stent in the proximal segment which is widely patent. The circumflex artery Is a nondominant vessel and has mild proximal 20% atheromatous plaque The right coronary artery Is a dominant vessel and has proximal 40% followed by a focal greater than 90% stenosis followed by mid vessel 50 to 60% stenoses The CANELA ventriculogram reveals Normal 65% The left ventricular end-diastolic pressure 30 mmHg IMPRESSION Severe to critical two-vessel coronary artery disease involving the proximal LAD and proximal dominant right coronary artery Successful stent to the proximal LAD critical disease reduced to 0% with 1 drug-eluting stent Successful stenting of the ostial proximal and mid dominant right coronary artery critical focal disease reduced to 0% with 2 contiguous drug-elut
--- NOTE | 2021-12-05 06:04 | PC.NURSE ---
Warren CAMACHO NOTIFIED OF CONSULT
[2021-12-05 06:42] LABS: Basophils # 0.1 K/mm3 (0-0.2); Basophils % 1.1 % (0.1-2.0); Eosinophils # 0.1 K/mm3 (0.0-0.4); Eosinophils % 2.4 % (0.1-12.0); Hematocrit 32.5 % (37.0-47.0); Hemoglobin 9.2 g/dL (12.2-16.2); Lymphocytes # 1.3 K/mm3 (0.7-4.5); Lymphocytes % 26.4 % (10-50); Mean Corpuscular HGB Conc 28.2 g/dL (31.8-35.4); Mean Corpuscular Hemoglobin 28.1 pg (27.0-31.2); Mean Corpuscular Volume 99.7 fl (81-99); Mean Platelet Volume 7.9 fl (7.4-10.4); Monocytes # 0.3 K/mm3 (0.1-1.0); Monocytes % 6.6 % (1.7-9.3); Neutrophils # 3.2 K/mm3 (1.8-7.8); Neutrophils % 63.5 % (37.0-80.0); Platelet Count 328 K/mm3 (142-424); Red Blood Count 3.26 M/mm3 (4.20-5.40); White Blood Count 5.1 K/mm3 (4.8-10.8)
[2021-12-05 06:53] LABS: Anion Gap 4.4 mEq/L (5-15); Blood Urea Nitrogen 16 mg/dl (7-17); Calcium 8.2 mg/dl (8.4-10.2); Carbon Dioxide 38 mmol/L (22.0-30.0); Chloride 106 mmol/L (98-107); Creatinine Clearance Estimated 38 mL/min (50-200); Estimated Glomerular Filt Rate 80 ml/min (>60); GFR (African American) 97 ML/MIN (>60); Glucose 144 mg/dl (74-100); Potassium 4.4 mmoL/L (3.5-5.1); Sodium 144 mmol/L (136-145)
--- NOTE | 2021-12-05 07:27 | P.CONPHA_ITS ---
[facility] Pharmacy VTE Monitoring - Patient Demographics Admission date: 12/04/21 Report Date: 12/05/21 Time: 07:27 Allergies/Adverse Reactions: Patient Allergies Iodinated Contrast Media Allergy (Intermediate, Verified 10/19/21 12:55) naproxen [NAPROXEN] Allergy (Mild, Verified 10/19/21 12:55) Height: 1.65 m Weight: 109.18 kg Patient Problems: Current Active Problems Hypothyroid (Chronic) Renal insufficiency (Chronic) History of CVA (cerebrovascular accident) (Chronic) Anemia (Chronic) Pulmonary edema (Acute) Congestive heart failure (Acute) Elevated troponin I level (Acute) Bilateral lower extremity edema (Acute) CAD (coronary artery disease) (Chronic) Diabetes mellitus (Chronic) Hypertension (Chronic) - VTE Risk Labs: VTE Related Lab Results Hgb 9.2 g/dL (12.2-16.2) L 12/05/21 06:09 Hct 32.5 % (37.0-47.0) L 12/05/21 06:09 Plt Count 328 K/mm3 (142-424) 12/05/21 06:09 BUN 16 mg/dl (7-17) 12/05/21 06:09 Creatinine 0.70 mg/dl (0.52-1.04) D 12/05/21 06:09 Estimated Creat Clear 38 mL/min (50-200) 12/05/21 06:09 Was VTE Risk Assessment Performed: Yes VTE Score: 7 VTE Risk Level: Moderate Risk - Prophylaxis VTE Prophylaxis Ordered?: Yes Types of VTE Prophylaxis: TEDS Knee High Location of Applied Device: Bilateral Lower Extremeties
--- NOTE | 2021-12-05 07:56 | HMH.PHAINT ---
MEDICATION RECONCILIATION COMPLETED ON PATIENT USING MAR FROM SHELTER. -CARMEN STAPLETON, MAGYD
--- NOTE | 2021-12-05 08:23 | HMH.ACPN2 ---
<Edie Sparks - Last Filed: 12/05/21 08:36> Internal Medicine - PN: Subj *Date: 12/05/21 *Time: 08:36 Interval history: Patient states she is extremely tired today. She did sleep during the night. She has eaten this part of her breakfast. She continues with Dillard catheter to bedside drainage. She denies chest pain and shortness of breath. CBC shows a white blood cell count of 5100 with a hemoglobin of 9.2 and hematocrit of 32.5. Blood chemistries show sodium of 144 potassium of 4.4. BUN is 16 and creatinine 0.7 troponin I's have been elevated at 0.15 and 0.13. I&O is inaccurate. Exam Vital signs and Labs for Last 24 Hours: Temp Pulse Resp BP Pulse Ox 98.4 F 68 18 132/64 97 12/05/21 04:00 12/05/21 04:00 12/05/21 04:00 12/05/21 04:00 12/05/21 04:00 Laboratory Results - last 24 hr 12/04/21 14:10: WBC 5.1, RBC 3.23 L, Hgb 9.3 L, Hct 31.2 L, MCV 96.7, MCH 28.9, MCHC 29.9 L, RDW 17.9 H, Plt Count 309, MPV 8.3, Neut % (Auto) 59.3, Lymph % (Auto) 29.2, [place] % (Auto) 9.2, Eos % (Auto) 1.6, Baso % (Auto) 0.7, Neut # (Auto) 3.1, Lymph # (Auto) 1.5, [place] # (Auto) 0.5, Eos # (Auto) 0.1, Baso # (Auto) 0.0 12/04/21 14:10: Sodium 138, Potassium 4.5, Chloride 104, Carbon Dioxide 34 H, Anion Gap 4.5 L, BUN 16, Creatinine 0.90, Estimated Creat Clear 74, Estimated GFR 60, Est GFR ( Amer) 73, Glucose 154 H, Calcium 7.8 L, Troponin I 0.15 H 12/04/21 14:10: NT-Pro-B Natriuret Pep 1130 H 12/04/21 14:24: SARS-CoV-2 (PCR) Not detected, Influenza A Untype (PCR) Not detected, Influenza Type B (PCR) Not detected 12/04/21 15:25: Urine Color Yellow, Urine Appearance Clear, Urine pH 5.5, Ur Specific [place] 1.025, Urine Protein Negative, Urine Glucose (UA) Negative, Urine Ketones Negative, Urine Blood Negative, Urine Nitrate Negative, Urine Bilirubin Negative, Urine Urobilinogen 0.2, Ur Leukocyte Esterase Negative, Urine RBC Occasional, Urine WBC None, Ur Squamous Epith Cells Occasional, Urine Bacteria None 12/04/21 18:10: Troponin I 0.13 H 12/05/21 06:09: WBC 5.1, RBC 3.26 L, Hgb 9.2 L, Hct 32.5 L, MCV 99.7 H, MCH 28.1, MCHC 28.2 L, RDW 18.0 H, Plt Count 328, MPV 7.9, Neut % (Auto) 63.5, Lymph % (Auto) 26.4, [place] % (Auto) 6.6, Eos % (Auto) 2.4, Baso % (Auto) 1.1, Neut # (Auto) 3.2, Lymph # (Auto) 1.3, [place] # (Auto) 0.3, Eos # (Auto) 0.1, Baso # (Auto) 0.1 12/05/21 06:09: Sodium 144, Potassium 4.4, Chloride 106, Carbon Dioxide 38 H, Anion Gap 4.4 L, BUN 16, Creatinine 0.70 D, Estimated Creat Clear 38, Estimated GFR 80, Est GFR ( Amer) 97 D, Glucose 144 H, Calcium 8.2 L I & O for Last 24 hours: Intake & Output 12/02/21 12/03/21 12/04/21 12/05/21 11:59 11:59 11:59 11:59 Output Total 0 / 0 Balance 0 / 0 Weight 240 lb 11.2 oz - Constitutional no acute distress Comments: Awakened for exam. Sitting up in the bed. - *Routine Respiratory Exam Present: crackles (Few bibasilar) - *Routine Cardiovascular Exam Present: RRR (Monitor showing sinus rhythm) - *Routine Abdominal Exam Present: soft, normoactive bowel sounds. Absent: tenderness - *Routine Extremities Exam Present: edema (Trace bilateral) Comments: Less edema of forearms - *Routine Neurological Exam Present: alert, oriented X3 (Lethargic) Assessment and Plan (1) Pulmonary edema Status: Acute Category: Medical Code(s): J81.1 - Chronic pulmonary edema (2) Bilateral lower extremity edema Status: Acute Category: Medical Code(s): R60.0 - Localized edema (3) CAD (coronary artery disease) Status: Chronic Qualifiers: Coronary Disease-Associated Artery/Lesion type: [place] artery [place] vs. 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
--- NOTE | 2021-12-05 09:01 | HMH.CNCARD ---
History of Present Illness Consult date: 12/05/21 Requesting physician: Rodriguez Manzo Consult reason: congestive heart failure Chief complaint: not feeling well , CHF, NSTEMI Additional Medical History:: 1. Coronary artery disease A. Lexiscan Myoview, 11/2020, no ischemia, EF 65%. B. LHC, 12/2020, bifurcating stents into LAD and diagonal. 2. Carotid artery stenosis, 20 to 49%, 11/2020 3. Remote history of DVT 4. Diabetes mellitus, treated for many years 5. Hypertension A. Echo, 02/06/2021, 1. Mild biatrial alignment, normal left ventricular size, mild concentric left ventricular hypertrophy, visually estimated ejection fraction 55% with no regional wall motion abnormality, grade 2 diastolic dysfunction seen without tissue Doppler evidence of raise left atrial pressure. 2. Mildly enlarged right ventricle with normal contractility. 3. Thickened and calcified aortic valve with mild aortic stenosis valve area is 1.8 cm???, there is no aortic insufficiency. 4. Mild mitral and tricuspid regurgitation, calculated right ventricular systolic pressure 36 mmHg, inferior vena cava is normal size with normal inspiratory collapse. 5. No significant pericardial effusion noted. 6. Hyperlipidemia 7. CKD, stage III 8. 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 Plans for left reverse shoulder arthroplasty have been delayed for various reasons. 9. CVA, 2020 10. Recurrent GI bleed of unclear etiology, [id number]. Colonoscopy unable to identify source. A. Recurrent anemia with recurrent transfusions. History of present illness: 80-year-old white female with multiple chronic conditions as noted above was admitted through the ER yesterday for elevated troponins and exacerbation of her chronic diastolic congestive heart failure. Patient was given IV Lasix with good output last evening. This morning she is complaining of not feeling well but denies any specific chest pain. Per Dr. Manzo the patient was more alert last evening and engaging but today is less interactive. EKG is sinus rhythm with left axis deviation and incomplete right bundle branch block. Unchanged from prior tracings. [facility] History Medical History: Reports:: Atherosclerotic Heart Disease, Cancer, Congestive Heart Failure, Congenital Heart Disease, Coronary Artery Disease, Cerebrovascular Accident, Deep Vein Thrombosis, Depression, Diabetes Mellitus Type 2, Gastroesophageal Reflux Disease(GERD), Gastrointestinal Bleed, Hyperlipidemia, Hypertension, Renal Insufficiency, Urinary Tract Infection Denies:: Diabetes Mellitus Type 1, Internal Pacemaker, MRSA, Seizures *Have you ever received a pneumonia vaccine?: No *Have you received a flu vaccine this season?: No Other Medical History: Reports: Anemia, Arthritis, Hypothyroidism, Thyroid Disease Other Surgeries: Yes: Appendectomy, Cardiac Catheterization, Cholecystectomy, Colonoscopy, Coronary Stent, EGD, Hernia Repair, Hysterectomy-Total, Skin Cancer Excision, Other. No: Pacemaker Amputation: No Fractures: Yes (L humerus, R humerus) - *Social History Smoking Status: Never smoker Alcohol Intake: never Alcohol Intake Frequency:: other Substance Use Type: denies use *Occupational Status:: retired Housing: [facility] Household Members: none *Travel in the last 8 weeks: None - Psychiatric History Pschychiatric History:: Reports:: Depression Family Hx:: Unable to obtain Meds Home Medications Medication Instructions Recorded Confirmed Type cyanocobalamin (vitamin B-12) 1,000 mcg PO DAILY 02/10/18 12/05/21 History 1,000 mcg tablet pravastatin 80 mg tablet 80 mg PO HS 02/10/18 12/05/21 History Calcium Carbonate/Vitamin D3 1 tab PO DAILY 02/05/21 12/05/21 History [Calcium 600-Vit D3 800 Tablet] carvediloL [Carvedilol 6.25mg Tab] 6.25 mg PO BID 02/05/21 12/05/21 History Levothyroxine Sodium 150 mcg PO DAILY 01/28
--- NOTE | 2021-12-05 09:49 | SW/DCPLANNER ---
Addendum entered by Kimber Browning 12/11/21 09:34: This patient will discharge back to [facility] today SNF level of care. Per Shikha patient will not need a COVID swab prior to returning. Addendum entered by Kimber Browning 12/08/21 10:15: I have updated Shikha ramirez/ [facility] regarding this patient: pending morning labs patient could potentially discharge back later today. Shikha has stated that patient will not require a COVID swab prior to discharge due to having COVID in past 90 days. Addendum entered by Kimber Browning 12/06/21 13:48: Updated patient information has been faxed to Shikha ramirez/ [facility]. If patient discharges tomorrow she will NOT require an additional COVID swab per Shikha. Addendum entered by Kimber Browning 12/05/21 09:57: CORRECTION: SNF level of care. Original Note: This patient currently resides at [facility]. I spoke with Shikha and she has confirmed that patient is [facility] level of care. I will continue to follow up with Shikha until medically stable for discharge. Patient will have a heart cath today.
[2021-12-05 11:34] LABS: POC Glucose,Bedside 151 (70-110)
[2021-12-05 11:34] LABS: POC Glucose,Bedside 162 (70-110)
[2021-12-05 11:34] LABS: POC Glucose,Bedside 138 (70-110)
--- NOTE | 2021-12-05 12:01 | PC.NURSE ---
Pt clipped for laborer tanbark. Have also called and spoke with YANDY Lundberg and she stated laborer tanbark would give steroids and pepcid per mar in laborer tanbark prophylactically. Verbal consent obtained for laborer tanbark with ROMMEL Leonard.
--- NOTE | 2021-12-05 12:24 | PC.NURSE ---
Pt down for center medical and lab director at this time.
[2021-12-05 14:18] LABS: CATHL Activated Clotting Time 287 SEC (74-125)
[2021-12-05 14:19] LABS: CATHL Activated Clotting Time 376 SEC (74-125)
[2021-12-05 21:20] LABS: POC Glucose,Bedside 302 (70-110)
[2021-12-06] VITALS (11 sets, daily range): BP systolic 121–134; BP diastolic 41–51; PULSE 60–78; RESP 16–18; TEMP 36.6–36.7; O2SAT 94–98; BMI 39.9
[2021-12-06 01:33] LABS: POC Glucose,Bedside 155 (70-110)
[2021-12-06 05:40] LABS: POC Glucose,Bedside 243 (70-110)
--- NOTE | 2021-12-06 06:39 | PC.NURSE ---
Pt a+o x3, unable to recall her correct age or the year. Pt has remained pleasant and cooperative t/o shift. No complaints have been voiced to staff. Dillard catheter in place draining clear yellow urine. Pt has been q2 turned and has received a full bed bath this shift. Bed alarm on for safety. Call ramos within reach.
[2021-12-06 06:46] LABS: Basophils % 0.4 % (0.1-2.0); Eosinophils % 0.1 % (0.1-12.0); Hematocrit 28.6 % (37.0-47.0); Hemoglobin 8.7 g/dL (12.2-16.2); Lymphocytes # 1.1 K/mm3 (0.7-4.5); Lymphocytes % 18.8 % (10-50); Mean Corpuscular HGB Conc 30.4 g/dL (31.8-35.4); Mean Corpuscular Hemoglobin 28.7 pg (27.0-31.2); Mean Corpuscular Volume 94.5 fl (81-99); Mean Platelet Volume 8.5 fl (7.4-10.4); Monocytes # 0.3 K/mm3 (0.1-1.0); Monocytes % 5.6 % (1.7-9.3); Neutrophils # 4.4 K/mm3 (1.8-7.8); Neutrophils % 75.1 % (37.0-80.0); Platelet Count 336 K/mm3 (142-424); Red Blood Count 3.03 M/mm3 (4.20-5.40); Red Cell Distribution Width 17.2 % (11.5-17.5); White Blood Count 5.9 K/mm3 (4.8-10.8)
[2021-12-06 06:51] LABS: Anion Gap 6.5 mEq/L (5-15); Blood Urea Nitrogen 25 mg/dl (7-17); Calcium 8.1 mg/dl (8.4-10.2); Carbon Dioxide 37 mmol/L (22.0-30.0); Chloride 103 mmol/L (98-107); Creatinine Clearance Estimated 76 mL/min (50-200); Estimated Glomerular Filt Rate 60 ml/min (>60); GFR (African American) 73 ML/MIN (>60); Glucose 224 mg/dl (74-100); Potassium 4.5 mmoL/L (3.5-5.1); Sodium 142 mmol/L (136-145)
--- NOTE | 2021-12-06 07:54 | HMH.ACPN2 ---
<Edie Sparks - Last Filed: 12/06/21 08:00> Internal Medicine - PN: Subj *Date: 12/06/21 *Time: 08:00 Interval history: Thinks she may be doing a little bit better. She is still tired and weak. She did sleep several hours during the night. She is eating without difficulty. She states her bowels have not moved in 3 days. She continues with a Dillard catheter. She continues to diurese with daily IV Lasix. She had a cardiac cath yesterday with the following results: IMPRESSION Severe to critical two-vessel coronary artery disease involving the proximal LAD and proximal dominant right coronary artery Successful stent to the proximal LAD critical disease reduced to 0% with 1 drug-eluting stent Successful stenting of the ostial proximal and mid dominant right coronary artery critical focal disease reduced to 0% with 2 contiguous drug-eluting stents Normal ejection fraction Moderate to severely elevated LVEDP CBC this morning shows white blood cell count of 5900 with a hemoglobin of 8.7 and hematocrit of 28.6. Blood chemistries with a normal sodium and potassium. BUN is 25 and creatinine 0.9. Echo results are still pending Exam Vital signs and Labs for Last 24 Hours: Temp Pulse Resp BP Pulse Ox 97.8 F 70 18 127/41 L 94 L 12/06/21 03:41 12/06/21 04:00 12/06/21 03:41 12/06/21 03:41 12/06/21 03:41 Laboratory Results - last 24 hr 12/04/21 21:56: POC Glucose 151 H 12/05/21 06:40: POC Glucose 138 H 12/05/21 10:35: POC Glucose 162 H 12/05/21 14:05: Activated Clotting Time 376 H* 12/05/21 14:26: Activated Clotting Time 287 H* D 12/05/21 15:47: POC Glucose 155 H 12/05/21 21:04: POC Glucose 302 H* 12/06/21 05:30: POC Glucose 243 H 12/06/21 05:36: WBC 5.9, RBC 3.03 L, Hgb 8.7 L, Hct 28.6 L, MCV 94.5, MCH 28.7, MCHC 30.4 L, RDW 17.2, Plt Count 336, MPV 8.5, Neut % (Auto) 75.1, Lymph % (Auto) 18.8, [place] % (Auto) 5.6, Eos % (Auto) 0.1, Baso % (Auto) 0.4, Neut # (Auto) 4.4, Lymph # (Auto) 1.1, [place] # (Auto) 0.3, Eos # (Auto) 0.0, Baso # (Auto) 0.0 12/06/21 05:36: Sodium 142, Potassium 4.5, Chloride 103, Carbon Dioxide 37 H, Anion Gap 6.5, BUN 25 H D, Creatinine 0.90 D, Estimated Creat Clear 76, Estimated GFR 60, Est GFR ( Amer) 73 D, Glucose 224 H D, Calcium 8.1 L I & O for Last 24 hours: Intake & Output 12/03/21 12/04/21 12/05/21 12/06/21 11:59 11:59 11:59 11:59 Intake Total 240 / 240 240 / 240 Output Total 750 / 750 1450 / 1450 Balance -510 / -510 -1210 / -1210 Weight 240 lb 11.2 oz 239 lb 6.752 oz - Constitutional no acute distress Comments: More conversant this morning. Speech is slow but clear. - *Routine Respiratory Exam Present: diminished air movement (On the right.) - *Routine Cardiovascular Exam Present: RRR - *Routine Abdominal Exam Present: soft, normoactive bowel sounds. Absent: tenderness - *Routine Extremities Exam Present: edema (Edema of arms and legs appear slightly worse today.). Absent: calf tenderness - *Routine Neurological Exam Present: alert, oriented X3 Assessment and Plan (1) Pulmonary edema Status: Acute Category: Medical Code(s): J81.1 - Chronic pulmonary edema (2) Bilateral lower extremity edema Status: Acute Category: Medical Code(s): R60.0 - Localized edema (3) CAD (coronary artery disease) Status: Chronic Qualifiers: Coronary Disease-Associated Artery/Lesion type: [place] artery [place] vs. transplanted heart: [place] heart Associated angina: without angina Qualified Code(s): I25.10 - Atherosclerotic heart disease of [place] coronary artery without angina pectoris Category: Medical Code(s): I25.10 - Atherosclerotic heart disease of [place] coronary artery without angina pectoris (4) Diabetes mellitus Status: Chronic Qualifiers: Diabetes mellitus type: type 1 Diabetes mellitus complication status: with other specified complication Qualified Code(s): E10.69 - Type 1 diabetes mellitus with other
--- NOTE | 2021-12-06 08:10 | XR_ITS ---
FINAL REPORT CLINICAL HISTORY: Shortness of breath. Right decreased breath sound COMPARISON: December 04, 2021 FINDINGS: SINGLE VIEW CHEST. The heart is normal in size. The mediastinum is unremarkable. There is pulmonary vascular congestion. There are persistent bibasilar opacities which may represent atelectasis or pneumonia. There are small bilateral pleural effusions which are worse. There is worsening right mid lung atelectasis or pneumonia. There is no pneumothorax. Again noted is proximal right humerus fracture. IMPRESSION: Persistent bibasilar opacities, may represent atelectasis or pneumonia. Worsening pleural effusions. Worsening right mid lung atelectasis or pneumonia. Reviewed, Interpreted and Dictated by Sang Herzog III, MD Transcribed by Gisel Fleming Authenticated by Sang Herzog III, MD on 12/06/2021 10:23:00 AM [facility]
--- NOTE | 2021-12-06 12:21 | HMH.PNCARD ---
Subjective Date: 12/06/21 Time: 12:21 Principal diagnosis: NSTEMI Interval history: 80-year-old white female in bed eating lunch in no acute distress. She is more alert today. She denies any chest pain but still does not feel great. Left heart cath yesterday during which time she received stents to her LAD and RCA. Exam Vital signs and Labs for Last 24 Hours: Temp Pulse Resp BP Pulse Ox 97.8 F 72 16 134/51 L 94 L 12/06/21 07:48 12/06/21 07:48 12/06/21 07:48 12/06/21 07:48 12/06/21 07:48 Laboratory Results - last 24 hr 12/05/21 14:05: Activated Clotting Time 376 H* 12/05/21 14:26: Activated Clotting Time 287 H* D 12/05/21 15:47: POC Glucose 155 H 12/05/21 21:04: POC Glucose 302 H* 12/06/21 05:30: POC Glucose 243 H 12/06/21 05:36: WBC 5.9, RBC 3.03 L, Hgb 8.7 L, Hct 28.6 L, MCV 94.5, MCH 28.7, MCHC 30.4 L, RDW 17.2, Plt Count 336, MPV 8.5, Neut % (Auto) 75.1, Lymph % (Auto) 18.8, [place] % (Auto) 5.6, Eos % (Auto) 0.1, Baso % (Auto) 0.4, Neut # (Auto) 4.4, Lymph # (Auto) 1.1, [place] # (Auto) 0.3, Eos # (Auto) 0.0, Baso # (Auto) 0.0 12/06/21 05:36: Sodium 142, Potassium 4.5, Chloride 103, Carbon Dioxide 37 H, Anion Gap 6.5, BUN 25 H D, Creatinine 0.90 D, Estimated Creat Clear 76, Estimated GFR 60, Est GFR ( Amer) 73 D, Glucose 224 H D, Calcium 8.1 L I & O for Last 24 hours: Intake & Output 12/04/21 12/05/21 12/06/21 12/07/21 11:59 11:59 11:59 11:59 Intake Total 240 / 240 600 / 600 Output Total 750 / 750 1450 / 1450 Balance -510 / -510 -850 / -850 Weight 240 lb 11.2 oz 239 lb 6.752 oz - Constitutional no acute distress - *Routine Respiratory Exam Present: CTA bilaterally - *Routine Cardiovascular Exam Present: RRR - *Routine Extremities Exam Present: edema. Absent: cyanosis, clubbing - *Routine Neurological Exam Present: alert, oriented X3 Progress Note: A&P (1) Pulmonary edema Status: Acute (2) Bilateral lower extremity edema Status: Acute (3) CAD (coronary artery disease) Status: Chronic (4) Diabetes mellitus Status: Chronic (5) History of CVA (cerebrovascular accident) Status: Chronic (6) Hypertension Status: Chronic (7) Hypothyroid Status: Chronic (8) Renal insufficiency Status: Chronic (9) Anemia Status: Chronic (10) S/P drug eluting coronary stent placement Status: Acute (11) Constipation Status: Acute (12) Impaired mobility Status: Acute (13) NSTEMI (non-ST elevated myocardial infarction) Status: Acute (14) Mild aortic stenosis by prior echocardiogram Status: Acute (15) Hypertensive heart disease with acute on chronic diastolic congestive heart failure Status: Acute Assessment and Plan for All Diagnoses:: 1. Non-ST elevation UT with subsequent stenting of LAD and RCA yesterday. Normal LV function. Continue aspirin and Plavix. Will obtain echo to reevaluate EF and aortic stenosis. 2. CHF, secondary to diastolic dysfunction. Continue diuretic therapy (IV Lasix and oral spironolactone) and monitor renal functions. 3. Hyperlipidemia, continue statin therapy 4. Hypertension, continue carvedilol and lisinopril. 5. Anemia, hemoglobin between 8-9, stable 6. Diabetes mellitus 7. History of CVA 8. Mild aortic stenosis.
--- NOTE | 2021-12-06 13:47 | HMH.PTEV ---
Physical Therapy Evaluation Rehab PT IP Evaluation Start: 12/06/21 08:08 Freq: ONCE Status: Active Protocol: Document 12/06/21 13:40 TRACY (Rec: 12/06/21 13:46 TRACY [id number]) Subjective/History History History Pt was admitted to [facility] thru ED from [facility]. Ms. Moctezuma is an 80-year-old female resident of [facility] with a history of dementia, prior strokes, diabetes mellitus, congestive heart failure, GI bleed, diverticulosis and urinary tract infections. She was brought to [facility] yesterday for laboratory testing, chest x- ray, and an echocardiogram. Subjective Subjective Pt states she is warmer than yesterday and feels she can breath better Rehab PT IP Eval Objective Appearance Patient Behavior Cooperative,Confused Patient Orientation Name,Birthday Difficulty following instructions none Speech Pattern Appropriate Ambulation Patient Able to Ambulate Yes Ambulation Observation IP General Gait Pattern Observation Shuffling Step Ambulation Distance (feet) 2 Ambulation Assistive Device None Ambulation Ability Minimal x 1 (25% assist) Balance Ability to Arise Unable Sitting Balance Leans or slides in chair Standing Balance Unsteady Dynamic Sitting Balance Ability Fair Dynamic Standing Balance Ability Poor Transfers Bed Transfer Ability Minimal x 1 (25% assist) Chair Transfer Ability Minimal x 1 (25% assist) Sit to Stand Bed Transfer Ability Moderate x 1 (50% assist) Sit to Stand Chair Transfer Ability Moderate x 1 (50% assist) Rehab PT IP prob,goals,plan Problems Date of Evaluation: 12/06/21 PT IP Problems Bed Mobility,Transfers,Gait, Balance,Self care,Safety Rehab Potential Rehab Potential Fair Equipment Needs Assistive Devices None / NA,Rolling / Wheeled Walker Plan PT Intervention Plan Bed Mobility,Transfers,Gait, Balance,Self care,Safety, Therapeutic Exercise PT Plan Frequency BID Duration LOS Discharge Goals Bed Transfer Ability Minimal x 1 (25% assist) Sit to Stand Chair Transfer Ability Minimal x
--- NOTE | 2021-12-06 14:56 | PC.NURSE ---
rounded on patient who was up to chair. family at bedside. did ask about possible discharge date and educated on plan of care. patient asking about medication for bowels, and this was relayed to primary nurse. patient had, had miralax earlier in shift. no other questions or concerns noted.
[2021-12-06 21:21] LABS: POC Glucose,Bedside 206 (70-110)
[2021-12-07] VITALS (12 sets, daily range): BP systolic 126–201; BP diastolic 43–78; PULSE 60–77; RESP 17–20; TEMP 36.4–36.6; O2SAT 93–98; BMI 39.5
[2021-12-07 06:28] LABS: POC Glucose,Bedside 137 (70-110)
--- NOTE | 2021-12-07 07:53 | HMH.PNCARD ---
Subjective Date: 12/07/21 Time: 07:53 Principal diagnosis: NSTEMI Interval history: 80-year-old white female in bed eating breakfast in no acute distress. Shortness of breath and edema continue to improve daily. Exam Vital signs and Labs for Last 24 Hours: Temp Pulse Resp BP Pulse Ox 97.9 F 64 20 132/53 L 93 L 12/07/21 07:45 12/07/21 07:45 12/07/21 07:45 12/07/21 07:45 12/07/21 07:45 Laboratory Results - last 24 hr 12/06/21 21:08: POC Glucose 206 H 12/07/21 06:20: POC Glucose 137 H I & O for Last 24 hours: Intake & Output 12/04/21 12/05/21 12/06/21 12/07/21 11:59 11:59 11:59 11:59 Intake Total 240 / 240 600 / 600 780 / 780 Output Total 750 / 750 1450 / 1450 700 / 700 Balance -510 / -510 -850 / -850 80 / 80 Weight 240 lb 11.2 oz 239 lb 6.752 oz 237 lb 3.478 oz - Constitutional no acute distress - *Routine Respiratory Exam Present: CTA bilaterally - *Routine Cardiovascular Exam Present: RRR - *Routine Extremities Exam Present: edema. Absent: cyanosis, clubbing - *Routine Neurological Exam Present: alert, oriented X3 Progress Note: A&P (1) NSTEMI (non-ST elevated myocardial infarction) Status: Acute (2) Pulmonary edema Status: Acute (3) Bilateral lower extremity edema Status: Acute (4) CAD (coronary artery disease) Status: Chronic (5) Diabetes mellitus Status: Chronic (6) History of CVA (cerebrovascular accident) Status: Chronic (7) Hypertension Status: Chronic (8) Hypothyroid Status: Chronic (9) Renal insufficiency Status: Chronic (10) Anemia Status: Chronic (11) S/P drug eluting coronary stent placement Status: Acute (12) Constipation Status: Acute (13) Impaired mobility Status: Acute (14) Mild aortic stenosis by prior echocardiogram Status: Acute (15) Hypertensive heart disease with acute on chronic diastolic congestive heart failure Status: Acute Assessment and Plan for All Diagnoses:: 1. Non-ST elevation [place] with subsequent stenting of LAD and RCA. Normal LV function. Continue aspirin and Plavix. 2. CHF, secondary to diastolic dysfunction. Continue diuretic therapy (IV Lasix and oral spironolactone) and monitor renal functions. 3. Hyperlipidemia, continue statin therapy 4. Hypertension, continue carvedilol and lisinopril. 5. Anemia, hemoglobin between 8-9, stable 6. Diabetes mellitus 7. History of CVA 8. Mild aortic stenosis Echocardiogram report from 12/04/2021 shows EF 55-60%, grade 2 diastolic dysfunction, RVSP is 49 mmHg and there is mild aortic stenosis, moderate mitral annular calcification and trace MR.
--- NOTE | 2021-12-07 08:11 | HMH.ACPN2 ---
<Meg Lopez - Last Filed: 12/07/21 08:11> Internal Medicine - PN: Subj *Date: 12/07/21 *Time: 08:12 Interval history: Patient states she is feeling a little bit better this morning. She is concerned about her bowels not moving. She states she has been getting MiraLAX but has not had a bowel movement in 3 days. She is also concerned with her urinary output. She feels that is decreased. She denies any pain and did sleep well last night and has been eating. Exam Vital signs and Labs for Last 24 Hours: Temp Pulse Resp BP Pulse Ox 97.9 F 64 20 132/53 L 93 L 12/07/21 07:45 12/07/21 07:45 12/07/21 07:45 12/07/21 07:45 12/07/21 07:45 Laboratory Results - last 24 hr 12/06/21 21:08: POC Glucose 206 H 12/07/21 06:20: POC Glucose 137 H I & O for Last 24 hours: Intake & Output 12/04/21 12/05/21 12/06/21 12/07/21 11:59 11:59 11:59 11:59 Intake Total 240 / 240 600 / 600 780 / 780 Output Total 750 / 750 1450 / 1450 700 / 700 Balance -510 / -510 -850 / -850 80 / 80 Weight 240 lb 11.2 oz 239 lb 6.752 oz 237 lb 3.478 oz - Constitutional no acute distress - *Routine Respiratory Exam Present: CTA bilaterally - *Routine Cardiovascular Exam Present: RRR - *Routine Abdominal Exam Present: soft, normoactive bowel sounds. Absent: tenderness - *Routine Extremities Exam Present: edema (Bilateral lower extremities). Absent: cyanosis, clubbing - *Routine Skin Exam Present: warm. Absent: rash - *Routine Neurological Exam Present: alert, oriented X3 Assessment and Plan (1) NSTEMI (non-ST elevated myocardial infarction) Status: Acute Category: Medical Code(s): I21.4 - Non-ST elevation (NSTEMI) myocardial infarction (2) Pulmonary edema Status: Acute Category: Medical Code(s): J81.1 - Chronic pulmonary edema (3) Bilateral lower extremity edema Status: Acute Category: Medical Code(s): R60.0 - Localized edema (4) CAD (coronary artery disease) Status: Chronic Qualifiers: Coronary Disease-Associated Artery/Lesion type: [place] artery [place] vs. transplanted heart: [place] heart Associated angina: without angina Qualified Code(s): I25.10 - Atherosclerotic heart disease of [place] coronary artery without angina pectoris Category: Medical Code(s): I25.10 - Atherosclerotic heart disease of [place] coronary artery without angina pectoris (5) Diabetes mellitus Status: Chronic Qualifiers: Diabetes mellitus type: type 1 Diabetes mellitus complication status: with other specified complication Qualified Code(s): E10.69 - Type 1 diabetes mellitus with other specified complication Category: Medical Code(s): E11.9 - Type 2 diabetes mellitus without complications (6) History of CVA (cerebrovascular accident) Status: Chronic Category: Medical Code(s): Z86.73 - Personal history of transient ischemic attack (TIA), and cerebral infarction without residual deficits (7) Hypertension Status: Chronic Qualifiers: Hypertension type: primary hypertension Qualified Code(s): I10 - Essential (primary) hypertension Category: Medical Code(s): I10 - Essential (primary) hypertension (8) Hypothyroid Status: Chronic Qualifiers: Hypothyroidism type: unspecified Qualified Code(s): E03.9 - Hypothyroidism, unspecified Category: Medical Code(s): E03.9 - Hypothyroidism, unspecified (9) Renal insufficiency Status: Chronic Category: Medical Code(s): N28.9 - Disorder of kidney and ureter, unspecified (10) Anemia Status: Chronic Qualifiers: Anemia type: unspecified type Qualified Code(s): D64.9 - Anemia, unspecified Category: Medical Code(s): D64.9 - Anemia, unspecified (11) S/P drug eluting coronary stent placement Status: Acute Category: Surgical Code(s): Z95.5 - Presence of coronary angioplasty implant and graft (12) Constipation Status: Acute Category: Medical Code(s): K59.00 - Constipation, unsp
[2021-12-07 11:16] LABS: POC Glucose,Bedside 224 (70-110)
[2021-12-07 17:28] LABS: POC Glucose,Bedside 198 (70-110)
[2021-12-08] VITALS (11 sets, daily range): BP systolic 138–184; BP diastolic 63–82; PULSE 60–75; RESP 16–20; TEMP 36.3–36.9; O2SAT 95–98; BMI 38.9
[2021-12-08 06:11] LABS: POC Glucose,Bedside 210 (70-110)
--- NOTE | 2021-12-08 06:47 | PC.NURSE ---
pt with frequent urination up to bsc with difficulty and requires assist x2, pt b/p elevated through the night and given clonidine x1 dose with slight decrease in blood pressure, pt denies any pain other than generalized pain all over in back and bottom, noted stage 1 pressure area to coccyx and pressure dressing applied, pt with 3+ pitting edema,
--- NOTE | 2021-12-08 08:26 | HMH.ACPN2 ---
<Meg Lopez - Last Filed: 12/08/21 08:26> Internal Medicine - PN: Subj *Date: 12/08/21 *Time: 08:26 Interval history: Patient is more lethargic this morning. She states she feels about the same but she did not sleep all night. She did have numerous bowel movements. She denies any abdominal pain. She was able to eat a small amount. Exam Vital signs and Labs for Last 24 Hours: Temp Pulse Resp BP Pulse Ox 97.6 F 63 16 166/82 H 98 12/08/21 07:55 12/08/21 07:55 12/08/21 07:55 12/08/21 07:55 12/08/21 07:55 Laboratory Results - last 24 hr 12/07/21 11:08: POC Glucose 224 H 12/07/21 17:20: POC Glucose 198 H 12/07/21 20:57: POC Glucose 210 H I & O for Last 24 hours: Intake & Output 12/05/21 12/06/21 12/07/21 12/08/21 11:59 11:59 11:59 11:59 Intake Total 240 / 240 600 / 600 780 / 780 840 / 840 Output Total 750 / 750 1450 / 1450 1300 / 1300 3800 / 3800 Balance -510 / -510 -850 / -850 -520 / -520 -2960 / -2960 Weight 240 lb 11.2 oz 239 lb 6.752 oz 237 lb 3.478 oz 233 lb 11.04 oz - Constitutional no acute distress - *Routine Respiratory Exam Present: decreased breath sounds - *Routine Cardiovascular Exam Present: RRR - *Routine Abdominal Exam Present: soft, normoactive bowel sounds. Absent: tenderness - *Routine Extremities Exam Present: edema (Bilateral lower extremity). Absent: cyanosis, clubbing - *Routine Skin Exam Present: warm. Absent: rash - *Routine Neurological Exam Present: alert, oriented X3 Assessment and Plan (1) NSTEMI (non-ST elevated myocardial infarction) Status: Acute Category: Medical Code(s): I21.4 - Non-ST elevation (NSTEMI) myocardial infarction (2) Pulmonary edema Status: Acute Category: Medical Code(s): J81.1 - Chronic pulmonary edema (3) Bilateral lower extremity edema Status: Acute Category: Medical Code(s): R60.0 - Localized edema (4) CAD (coronary artery disease) Status: Chronic Qualifiers: Coronary Disease-Associated Artery/Lesion type: [place] artery [place] vs. transplanted heart: [place] heart Associated angina: without angina Qualified Code(s): I25.10 - Atherosclerotic heart disease of [place] coronary artery without angina pectoris Category: Medical Code(s): I25.10 - Atherosclerotic heart disease of [place] coronary artery without angina pectoris (5) Diabetes mellitus Status: Chronic Qualifiers: Diabetes mellitus type: type 1 Diabetes mellitus complication status: with other specified complication Qualified Code(s): E10.69 - Type 1 diabetes mellitus with other specified complication Category: Medical Code(s): E11.9 - Type 2 diabetes mellitus without complications (6) History of CVA (cerebrovascular accident) Status: Chronic Category: Medical Code(s): Z86.73 - Personal history of transient ischemic attack (TIA), and cerebral infarction without residual deficits (7) Hypertension Status: Chronic Qualifiers: Hypertension type: primary hypertension Qualified Code(s): I10 - Essential (primary) hypertension Category: Medical Code(s): I10 - Essential (primary) hypertension (8) Hypothyroid Status: Chronic Qualifiers: Hypothyroidism type: unspecified Qualified Code(s): E03.9 - Hypothyroidism, unspecified Category: Medical Code(s): E03.9 - Hypothyroidism, unspecified (9) Renal insufficiency Status: Chronic Category: Medical Code(s): N28.9 - Disorder of kidney and ureter, unspecified (10) Anemia Status: Chronic Qualifiers: Anemia type: unspecified type Qualified Code(s): D64.9 - Anemia, unspecified Category: Medical Code(s): D64.9 - Anemia, unspecified (11) S/P drug eluting coronary stent placement Status: Acute Category: Surgical Code(s): Z95.5 - Presence of coronary angioplasty implant and graft (12) Constipation Status: Acute Category: Medical Code(s): K59.00 - Constipation, unspecified (13) Impaired mobilit
--- NOTE | 2021-12-08 08:27 | XR_ITS ---
FINAL REPORT CLINICAL HISTORY: f/u CHF COMPARISON: December 06, 2021 FINDINGS: A single portable view of the chest was obtained. Cardiomegaly is noted. The mediastinum is within normal limits. There are pulmonary vascular calcifications. There are persistent pulmonary opacities likely representing pulmonary edema. There is slight improved aeration. There is a small left pleural effusion that is partially improved. The bony thorax is intact. IMPRESSION: CHF with slight improved aeration. Reviewed, Interpreted and Dictated by Sang Herzog III, MD Transcribed by Marilyn Larsen Authenticated by Sang Herzog III, MD on 12/08/2021 11:11:03 AM [facility]
[2021-12-08 09:22] LABS: Basophils % 0.7 % (0.1-2.0); Eosinophils # 0.1 K/mm3 (0.0-0.4); Eosinophils % 2.1 % (0.1-12.0); Hematocrit 31.3 % (37.0-47.0); Hemoglobin 9.4 g/dL (12.2-16.2); Lymphocytes # 1.3 K/mm3 (0.7-4.5); Lymphocytes % 27.6 % (10-50); Mean Corpuscular Hemoglobin 28.5 pg (27.0-31.2); Mean Corpuscular Volume 95.1 fl (81-99); Mean Platelet Volume 8.3 fl (7.4-10.4); Monocytes # 0.5 K/mm3 (0.1-1.0); Monocytes % 9.6 % (1.7-9.3); Neutrophils # 2.8 K/mm3 (1.8-7.8); Platelet Count 374 K/mm3 (142-424); Red Blood Count 3.29 M/mm3 (4.20-5.40); Red Cell Distribution Width 17.5 % (11.5-17.5); White Blood Count 4.7 K/mm3 (4.8-10.8)
[2021-12-08 09:29] LABS: Blood Urea Nitrogen 27 mg/dl (7-17); Calcium 8.5 mg/dl (8.4-10.2); Carbon Dioxide 40 mmol/L (22.0-30.0); Chloride 101 mmol/L (98-107); Creatinine Clearance Estimated 74 mL/min (50-200); Estimated Glomerular Filt Rate 69 ml/min (>60); GFR (African American) 83 ML/MIN (>60); Glucose 150 mg/dl (74-100); Sodium 141 mmol/L (136-145)
--- NOTE | 2021-12-08 10:29 | HMH.PNCARD ---
Subjective Date: 12/08/21 Time: 10:29 Principal diagnosis: NSTEMI Interval history: 80-year-old white female sitting at bedside in no acute distress but states she needs to get up but when asked if she wants to lay down she says yes. Son is in the room stating that she seems a little disoriented and in the past when this happens they usually find out she has a urinary tract infection. The nursing assistance state that the patient has been to the bathroom twice already this morning. Patient knows she is at [facility]. She denies any chest pain, pressure or tightness. Exam Vital signs and Labs for Last 24 Hours: Temp Pulse Resp BP Pulse Ox 97.6 F 63 16 166/82 H 98 12/08/21 07:55 12/08/21 07:55 12/08/21 07:55 12/08/21 07:55 12/08/21 07:55 Laboratory Results - last 24 hr 12/07/21 11:08: POC Glucose 224 H 12/07/21 17:20: POC Glucose 198 H 12/07/21 20:57: POC Glucose 210 H 12/08/21 09:16: WBC 4.7 L, RBC 3.29 L, Hgb 9.4 L, Hct 31.3 L, MCV 95.1, MCH 28.5, MCHC 30.0 L, RDW 17.5, Plt Count 374, MPV 8.3, Neut % (Auto) 60.0, Lymph % (Auto) 27.6, [place] % (Auto) 9.6 H, Eos % (Auto) 2.1, Baso % (Auto) 0.7, Neut # (Auto) 2.8, Lymph # (Auto) 1.3, [place] # (Auto) 0.5, Eos # (Auto) 0.1, Baso # (Auto) 0.0 12/08/21 09:16: Sodium 141, Chloride 101, Carbon Dioxide 40 H, BUN 27 H, Creatinine 0.80, Estimated Creat Clear 74, Estimated GFR 69, Est GFR ( Amer) 83, Glucose 150 H, Calcium 8.5 I & O for Last 24 hours: Intake & Output 12/05/21 12/06/21 12/07/21 12/08/21 11:59 11:59 11:59 11:59 Intake Total 240 / 240 600 / 600 780 / 780 840 / 840 Output Total 750 / 750 1450 / 1450 1300 / 1300 3800 / 3800 Balance -510 / -510 -850 / -850 -520 / -520 -2960 / -2960 Weight 240 lb 11.2 oz 239 lb 6.752 oz 237 lb 3.478 oz 233 lb 11.04 oz - Constitutional no acute distress - *Routine Respiratory Exam Present: CTA bilaterally - *Routine Cardiovascular Exam Present: RRR - *Routine Extremities Exam Absent: cyanosis, clubbing, edema - *Routine Neurological Exam Present: alert Progress Note: A&P (1) NSTEMI (non-ST elevated myocardial infarction) Status: Acute (2) Pulmonary edema Status: Acute (3) Bilateral lower extremity edema Status: Acute (4) CAD (coronary artery disease) Status: Chronic (5) Diabetes mellitus Status: Chronic (6) History of CVA (cerebrovascular accident) Status: Chronic (7) Hypertension Status: Chronic (8) Hypothyroid Status: Chronic (9) Renal insufficiency Status: Chronic (10) Anemia Status: Chronic (11) S/P drug eluting coronary stent placement Status: Acute (12) Constipation Status: Acute (13) Impaired mobility Status: Acute (14) Mild aortic stenosis by prior echocardiogram Status: Acute (15) Hypertensive heart disease with acute on chronic diastolic congestive heart failure Status: Acute Assessment and Plan for All Diagnoses:: 1. Non-ST elevation [place] with subsequent stenting of LAD and RCA. Normal LV function. Continue aspirin and Plavix. 2. CHF, secondary to diastolic dysfunction. Continue diuretic therapy (IV Lasix and oral spironolactone) and monitor renal functions. Chest x-ray report today is pending but visually appears to be improved compared to 2 days ago. 3. Hyperlipidemia, continue statin therapy 4. Hypertension, not to goal therefore increase lisinopril to 20 mg twice daily and continue Coreg 6.25 mg twice daily at this time 5. Anemia, hemoglobin between 8-9, stable 6. Diabetes mellitus 7. History of CVA 8. Mild aortic stenosis 9. Confusion with concern for possible UTI, will defer to PCP. Echocardiogram report from 12/04/2021 shows EF 55-60%, grade 2 diastolic dysfunction, RVSP is 49 mmHg and there is mild aortic stenosis, moderate mitral annular calcification and trace MR.
[2021-12-08 10:48] LABS: Anion Gap 4.2 mEq/L (5-15); Potassium 4.2 mmoL/L (3.5-5.1)
--- NOTE | 2021-12-08 11:56 | PC.NURSE ---
RN aware of elevated manual BP 184/78.
[2021-12-08 12:16] LABS: POC Glucose,Bedside 186 (70-110)
[2021-12-08 13:40] LABS: Microscopic, Urine URINE MICROSCOPIC (MICROSCOPIC)
[2021-12-08 15:19] LABS: Appearance,Urine CLEAR (Clear); Bilirubin,Urine Negative (Negative); Blood, Urine Negative (Negative); Color,Urine YELLOW (Yellow); Glucose,Urine (UA) Negative (Negative); Ketones,Urine Negative (Negative); Leukocyte Esterase,Urine Negative (Negative); Nitrate,Urine Negative (Negative); Protein,Urine Negative (Negative); Specific Gravity, Urine 1.015 (1.005-1.030); Urobilinogen,Urine 0.2 EU/dl (0.2)
[2021-12-08 15:48] LABS: Squamous Epithelial Cell,Urine Occasional #/hpf (0-5)
[2021-12-08 17:39] LABS: POC Glucose,Bedside 229 (70-110)
[2021-12-08 20:56] LABS: POC Glucose,Bedside 163 (70-110)
[2021-12-09] VITALS (9 sets, daily range): BP systolic 135–173; BP diastolic 50–84; PULSE 60–80; RESP 16–20; TEMP 36.5–37.1; O2SAT 90–95; BMI 36.3
--- NOTE | 2021-12-09 06:11 | PC.NURSE ---
At start of this RN shift patient continued to yell that she needed help. This RN and SRNA attempted on mulitply occasions to inquire why patient needed help, help could not respond. This RN paged Dr. Cotter and reported behavior. Per Md, 0.5mg Ativan IV 1 only. Patient was able to rest well after administration and bath. Patient had one more episode of screaming out, SRNA attended to needs and patient was able to rest again. No other concerns or comments noted.
[2021-12-09 07:08] LABS: POC Glucose,Bedside 141 (70-110)
[2021-12-09 07:19] LABS: Basophils % 0.7 % (0.1-2.0); Eosinophils # 0.1 K/mm3 (0.0-0.4); Eosinophils % 2.1 % (0.1-12.0); Hemoglobin 10.2 g/dL (12.2-16.2); Lymphocytes # 2.1 K/mm3 (0.7-4.5); Lymphocytes % 36.2 % (10-50); Mean Corpuscular HGB Conc 30.8 g/dL (31.8-35.4); Mean Corpuscular Hemoglobin 28.6 pg (27.0-31.2); Mean Corpuscular Volume 92.8 fl (81-99); Mean Platelet Volume 7.9 fl (7.4-10.4); Monocytes # 0.6 K/mm3 (0.1-1.0); Monocytes % 10.3 % (1.7-9.3); Neutrophils # 2.9 K/mm3 (1.8-7.8); Neutrophils % 50.7 % (37.0-80.0); Platelet Count 411 K/mm3 (142-424); Red Blood Count 3.55 M/mm3 (4.20-5.40); Red Cell Distribution Width 17.5 % (11.5-17.5); White Blood Count 5.7 K/mm3 (4.8-10.8)
--- NOTE | 2021-12-09 07:23 | PC.NURSE ---
Patient is continuously screaming please help me. This RN asked on several occassions, how can I help you? Patient states, I don' know. Patient is A&O x4.
[2021-12-09 07:48] LABS: Alanine Aminotransferase 17 U/L (12-78); Albumin Level 3.2 g/dl (3.5-5.0); Albumin/Globulin Ratio 1.1 (1.1-1.8); Alkaline Phosphatase 118 U/L (38-126); Anion Gap 7.4 mEq/L (5-15); Aspartate Amino Transferase 27 U/L (14-36); Bilirubin,Total 0.5 mg/dl (0.2-1.3); Blood Urea Nitrogen 22 mg/dl (7-17); Calcium 9.2 mg/dl (8.4-10.2); Carbon Dioxide 39 mmol/L (22.0-30.0); Chloride 98 mmol/L (98-107); Creatinine Clearance Estimated 68 mL/min (50-200); Estimated Glomerular Filt Rate 69 ml/min (>60); GFR (African American) 83 ML/MIN (>60); Globulin 2.9 g/dL (1.3-3.2); Glucose 142 mg/dl (74-100); Potassium 4.4 mmoL/L (3.5-5.1); Sodium 140 mmol/L (136-145); Total Protein,Serum 6.1 g/dl (6.3-8.2)
--- NOTE | 2021-12-09 08:35 | HMH.ACPN2 ---
Internal Medicine - PN: Subj *Date: 12/09/21 *Time: 08:35 Interval history: She developed progressive confusion through the day yesterday and remains confused this morning. She did rest most of the night with a small dose of Ativan. She continually calls out help me, please help me but then can not tell you what she needs. She denies chest pain, abdominal pain, shortness of breath. She has diuresed well with weight down 19 pounds. VS are stable. He renal function, lytes, and H&H are stable. CXR shows improved CHF. No evidence of infection. Exam Vital signs and Labs for Last 24 Hours: Temp Pulse Resp BP Pulse Ox 98.3 F 75 18 138/62 90 L 12/09/21 07:46 12/09/21 07:46 12/09/21 07:46 12/09/21 07:46 12/09/21 07:46 Laboratory Results - last 24 hr 12/08/21 09:16: WBC 4.7 L, RBC 3.29 L, Hgb 9.4 L, Hct 31.3 L, MCV 95.1, MCH 28.5, MCHC 30.0 L, RDW 17.5, Plt Count 374, MPV 8.3, Neut % (Auto) 60.0, Lymph % (Auto) 27.6, [place] % (Auto) 9.6 H, Eos % (Auto) 2.1, Baso % (Auto) 0.7, Neut # (Auto) 2.8, Lymph # (Auto) 1.3, [place] # (Auto) 0.5, Eos # (Auto) 0.1, Baso # (Auto) 0.0 12/08/21 09:16: Sodium 141, Potassium 4.2, Chloride 101, Carbon Dioxide 40 H, Anion Gap 4.2 L, BUN 27 H, Creatinine 0.80, Estimated Creat Clear 74, Estimated GFR 69, Est GFR ( Amer) 83, Glucose 150 H, Calcium 8.5 12/08/21 12:02: POC Glucose 186 H 12/08/21 13:36: Urine Color Yellow, Urine Appearance Clear, Urine pH 8.0, Ur Specific [place] 1.015, Urine Protein Negative, Urine Glucose (UA) Negative, Urine Ketones Negative, Urine Blood Negative, Urine Nitrate Negative, Urine Bilirubin Negative, Urine Urobilinogen 0.2, Ur Leukocyte Esterase Negative, Urine RBC None, Urine WBC None, Ur Squamous Epith Cells Occasional, Urine Bacteria None 12/08/21 17:29: POC Glucose 229 H 12/08/21 20:37: POC Glucose 163 H 12/09/21 07:00: POC Glucose 141 H 12/09/21 07:06: WBC 5.7, RBC 3.55 L, Hgb 10.2 L, Hct 33.0 L, MCV 92.8, MCH 28.6, MCHC 30.8 L, RDW 17.5, Plt Count 411, MPV 7.9, Neut % (Auto) 50.7, Lymph % (Auto) 36.2, [place] % (Auto) 10.3 H, Eos % (Auto) 2.1, Baso % (Auto) 0.7, Neut # (Auto) 2.9, Lymph # (Auto) 2.1, [place] # (Auto) 0.6, Eos # (Auto) 0.1, Baso # (Auto) 0.0 12/09/21 07:06: Sodium 140, Potassium 4.4, Chloride 98, Carbon Dioxide 39 H, Anion Gap 7.4, BUN 22 H, Creatinine 0.80, Estimated Creat Clear 68, Estimated GFR 69, Est GFR ( Amer) 83, Glucose 142 H, Calcium 9.2, Total Bilirubin 0.5, AST 27, ALT 17, Alkaline Phosphatase 118, Total Protein 6.1 L, Albumin 3.2 L, Globulin 2.9, Albumin/Globulin Ratio 1.1 I & O for Last 24 hours: Intake & Output 12/06/21 12/07/21 12/08/21 12/09/21 11:59 11:59 11:59 11:59 Intake Total 600 / 600 780 / 780 840 / 840 180 / 180 Output Total 1450 / 1450 1300 / 1300 3800 / 3800 3900 / 3900 Balance -850 / -850 -520 / -520 -2960 / -2960 -3720 / -3720 Weight 239 lb 6.752 oz 237 lb 3.478 oz 233 lb 11.04 oz 218 lb 4.8 oz Narrative: Awake and alert and seems anxious. Does not know day or month. States she is in the [facility] and that she came from home. Does not know why she is here. Color is good. No respiratory distress. No carotid bruits. Lungs with few crackles in the bases. Heart is regular. Abdomen soft and NT. Ext with trace edema. Neuro exam shows no focal motor deficits. Assessment and Plan (1) NSTEMI (non-ST elevated myocardial infarction) Status: Acute Category: Medical Code(s): I21.4 - Non-ST elevation (NSTEMI) myocardial infarction (2) Pulmonary edema Status: Acute Category: Medical Code(s): J81.1 - Chronic pulmonary edema (3) Bilateral lower extremity edema Status: Acute Category: Medical Code(s): R60.0 - Localized edema (4) CAD (coronary artery disease) Status: Chronic Qualifiers: Coronary Disease-Associated Artery/Lesion type: [place] artery [place] vs. transplanted heart: [place] heart Associated angina: without angina Qualified Code(s): I25.10 - Atheroscleroti
[2021-12-09 11:54] LABS: POC Glucose,Bedside 163 (70-110)
--- NOTE | 2021-12-09 16:27 | PC.NURSE ---
RN aware of elevated BP.
[2021-12-09 17:20] LABS: POC Glucose,Bedside 195 (70-110)
[2021-12-10] VITALS (9 sets, daily range): BP systolic 130–189; BP diastolic 50–82; PULSE 60–83; RESP 16–20; TEMP 36.6–37.3; O2SAT 91–95; BMI 36.3
[2021-12-10 06:46] LABS: POC Glucose,Bedside 161 (70-110)
[2021-12-10 06:46] LABS: POC Glucose,Bedside 229 (70-110)
--- NOTE | 2021-12-10 08:55 | HMH.ACPN2 ---
Internal Medicine - PN: Subj *Date: 12/10/21 *Time: 09:08 Interval history: Mental status is improved but still confused. Does not know why she is here and wants to go home. She is not continually repeating her words and is asking appropriate questions. She has had breakfast. Exam Vital signs and Labs for Last 24 Hours: Temp Pulse Resp BP Pulse Ox 97.9 F 72 20 174/64 H 93 L 12/10/21 07:33 12/10/21 07:33 12/09/21 20:00 12/10/21 07:33 12/10/21 07:33 Laboratory Results - last 24 hr 12/09/21 07:06: Sodium 140, Potassium 4.4, Chloride 98, Carbon Dioxide 39 H, Anion Gap 7.4, BUN 22 H, Creatinine 0.80, Estimated Creat Clear 68, Estimated GFR 69, Est GFR ( Amer) 83, Glucose 142 H, Calcium 9.2, Total Bilirubin 0.5, AST 27, ALT 17, Alkaline Phosphatase 118, Total Protein 6.1 L, Albumin 3.2 L, Globulin 2.9, Albumin/Globulin Ratio 1.1 12/09/21 11:39: POC Glucose 163 H 12/09/21 17:07: POC Glucose 195 H 12/09/21 23:06: POC Glucose 229 H 12/10/21 05:31: POC Glucose 161 H I & O for Last 24 hours: Intake & Output 12/07/21 12/08/21 12/09/21 12/10/21 11:59 11:59 11:59 12:59 Intake Total 780 / 780 840 / 840 240 / 240 240 / 240 Output Total 1300 / 1300 3800 / 3800 3900 / 3900 700 / 700 Balance -520 / -520 -2960 / -2960 -3660 / -3660 -460 / -460 Weight 237 lb 3.478 oz 233 lb 11.04 oz 218 lb 4.8 oz 218 lb 4.792 oz Narrative: Sitting up in the chair, alert and talking. She is less anxious. Color is good. Chest with bibasilar rales. Heart RRR. Abdomen soft and NT. Ext with trace edema. Assessment and Plan (1) NSTEMI (non-ST elevated myocardial infarction) Status: Acute Category: Medical Code(s): I21.4 - Non-ST elevation (NSTEMI) myocardial infarction (2) Pulmonary edema Status: Acute Category: Medical Code(s): J81.1 - Chronic pulmonary edema (3) Bilateral lower extremity edema Status: Acute Category: Medical Code(s): R60.0 - Localized edema (4) CAD (coronary artery disease) Status: Chronic Qualifiers: Coronary Disease-Associated Artery/Lesion type: [place] artery [place] vs. transplanted heart: [place] heart Associated angina: without angina Qualified Code(s): I25.10 - Atherosclerotic heart disease of [place] coronary artery without angina pectoris Category: Medical Code(s): I25.10 - Atherosclerotic heart disease of [place] coronary artery without angina pectoris (5) Diabetes mellitus Status: Chronic Qualifiers: Diabetes mellitus type: type 1 Diabetes mellitus complication status: with other specified complication Qualified Code(s): E10.69 - Type 1 diabetes mellitus with other specified complication Category: Medical Code(s): E11.9 - Type 2 diabetes mellitus without complications (6) History of CVA (cerebrovascular accident) Status: Chronic Category: Medical Code(s): Z86.73 - Personal history of transient ischemic attack (TIA), and cerebral infarction without residual deficits (7) Hypertension Status: Chronic Qualifiers: Hypertension type: primary hypertension Qualified Code(s): I10 - Essential (primary) hypertension Category: Medical Code(s): I10 - Essential (primary) hypertension (8) Hypothyroid Status: Chronic Qualifiers: Hypothyroidism type: unspecified Qualified Code(s): E03.9 - Hypothyroidism, unspecified Category: Medical Code(s): E03.9 - Hypothyroidism, unspecified (9) Renal insufficiency Status: Chronic Category: Medical Code(s): N28.9 - Disorder of kidney and ureter, unspecified (10) Anemia Status: Chronic Qualifiers: Anemia type: unspecified type Qualified Code(s): D64.9 - Anemia, unspecified Category: Medical Code(s): D64.9 - Anemia, unspecified (11) S/P drug eluting coronary stent placement Status: Acute Category: Surgical Code(s): Z95.5 - Presence of coronary angioplasty implant and graft (12) Constipation Status: Acute Category: Medical Code(s):
[2021-12-10 16:15] LABS: POC Glucose,Bedside 311 (70-110)
[2021-12-11] VITALS: BP 148/60; PULSE 67; PULSE 70; RESP 17; TEMP 36.9; O2SAT 92
[2021-12-11 04:00] VITALS: BP 135/47; PULSE 70; PULSE 71; RESP 16; TEMP 36.7; O2SAT 93
[2021-12-11 05:00] VITALS: BMI 35.9
[2021-12-11 06:32] LABS: Anion Gap 4.5 mEq/L (5-15); Blood Urea Nitrogen 23 mg/dl (7-17); Calcium 8.2 mg/dl (8.4-10.2); Carbon Dioxide 40 mmol/L (22.0-30.0); Chloride 97 mmol/L (98-107); Creatinine Clearance Estimated 61 mL/min (50-200); Estimated Glomerular Filt Rate 48 ml/min (>60); GFR (African American) 58 ML/MIN (>60); Glucose 180 mg/dl (74-100); Potassium 3.5 mmoL/L (3.5-5.1); Sodium 138 mmol/L (136-145)
[2021-12-11 08:00] VITALS: BP 127/45; PULSE 65; PULSE 69; RESP 18; TEMP 36.8; O2SAT 99
[2021-12-11 08:25] VITALS: O2SAT 99
--- NOTE | 2021-12-11 08:31 | HMH.ACPN2 ---
<Edie Sparks - Last Filed: 12/11/21 08:36> Internal Medicine - PN: Subj *Date: 12/11/21 *Time: 08:36 Interval history: Patient states she is doing well this morning. She does not feel tired. She denies chest pain and shortness of breath. She ate well for breakfast. She did not void yesterday visiting with her family Exam Vital signs and Labs for Last 24 Hours: Temp Pulse Resp BP Pulse Ox 98.2 F 69 18 127/45 L 99 12/11/21 08:00 12/11/21 08:00 12/11/21 08:00 12/11/21 08:00 12/11/21 08:00 Laboratory Results - last 24 hr 12/10/21 16:04: POC Glucose 311 H* 12/11/21 05:30: Sodium 138, Potassium 3.5 D, Chloride 97 L, Carbon Dioxide 40 H, Anion Gap 4.5 L, BUN 23 H, Creatinine 1.10 H D, Estimated Creat Clear 61, Estimated GFR 48 L, Est GFR ( Amer) 58 L D, Glucose 180 H, Calcium 8.2 L I & O for Last 24 hours: Intake & Output 12/08/21 12/09/21 12/10/21 12/11/21 10:59 10:59 11:59 11:59 Intake Total 1260 / 1260 Output Total 350 / 350 Balance 910 / 910 Weight 215 lb 6.266 oz - Constitutional no acute distress - *Routine Respiratory Exam Present: crackles (Few in bases. Much improved breath sounds on the right.) - *Routine Cardiovascular Exam Present: RRR, murmur - *Routine Abdominal Exam Present: soft, normoactive bowel sounds. Absent: tenderness - *Routine Extremities Exam Present: edema (Trace bilaterally) - *Routine Neurological Exam Present: alert, oriented X3 Assessment and Plan (1) NSTEMI (non-ST elevated myocardial infarction) Status: Acute Category: Medical Code(s): I21.4 - Non-ST elevation (NSTEMI) myocardial infarction (2) Pulmonary edema Status: Acute Category: Medical Code(s): J81.1 - Chronic pulmonary edema (3) Bilateral lower extremity edema Status: Acute Category: Medical Code(s): R60.0 - Localized edema (4) CAD (coronary artery disease) Status: Chronic Qualifiers: Coronary Disease-Associated Artery/Lesion type: [place] artery [place] vs. transplanted heart: [place] heart Associated angina: without angina Qualified Code(s): I25.10 - Atherosclerotic heart disease of [place] coronary artery without angina pectoris Category: Medical Code(s): I25.10 - Atherosclerotic heart disease of [place] coronary artery without angina pectoris (5) Diabetes mellitus Status: Chronic Qualifiers: Diabetes mellitus type: type 1 Diabetes mellitus complication status: with other specified complication Qualified Code(s): E10.69 - Type 1 diabetes mellitus with other specified complication Category: Medical Code(s): E11.9 - Type 2 diabetes mellitus without complications (6) History of CVA (cerebrovascular accident) Status: Chronic Category: Medical Code(s): Z86.73 - Personal history of transient ischemic attack (TIA), and cerebral infarction without residual deficits (7) Hypertension Status: Chronic Qualifiers: Hypertension type: primary hypertension Qualified Code(s): I10 - Essential (primary) hypertension Category: Medical Code(s): I10 - Essential (primary) hypertension (8) Hypothyroid Status: Chronic Qualifiers: Hypothyroidism type: unspecified Qualified Code(s): E03.9 - Hypothyroidism, unspecified Category: Medical Code(s): E03.9 - Hypothyroidism, unspecified (9) Renal insufficiency Status: Chronic Category: Medical Code(s): N28.9 - Disorder of kidney and ureter, unspecified (10) Anemia Status: Chronic Qualifiers: Anemia type: unspecified type Qualified Code(s): D64.9 - Anemia, unspecified Category: Medical Code(s): D64.9 - Anemia, unspecified (11) S/P drug eluting coronary stent placement Status: Acute Category: Surgical Code(s): Z95.5 - Presence of coronary angioplasty implant and graft (12) Constipation Status: Acute Category: Medical Code(s): K59.00 - Constipation, unspecified (13) Impaired mobility Status: Acute Categ
--- NOTE | 2021-12-11 08:34 | HMH.DCSUM ---
General - General Admission date:: 12/04/21 <CyndeeHarry - 12/26/21 17:50> 12/04/21 <Edie Sparks - 12/11/21 08:36> Discharge date: 12/11/21 <ClareEdie - 12/11/21 09:35> HPI HPI: Ms. Moctezuma is an 80-year-old female resident of [facility] with a history of dementia, prior strokes, diabetes mellitus, congestive heart failure, GI bleed, diverticulosis and urinary tract infections. She was brought to [facility] today for laboratory testing, chest x-ray, and an echocardiogram. When eating with her son she was told to go to the emergency room at which time she would be processed for admission to the hospital. She described persistent shortness of breath and cough for the previous 2 weeks along with intermittent chest discomfort. She stated the swelling in her legs had also progressively worsened and she also had edema in both arms. She has had several recent hospital admissions with the last being 10/08-10/12/2021 with GI bleeding. Surgery was consulted who felt she had a diverticular bleed. She did have a colonoscopy 10/11/2021 at which time old blood clots and stool were noted throughout the colon with no obvious source of active bleeding. She was discharged back to [facility] with monitoring of her H&H. With evaluation in the emergency room on this date Blood pressure was elevated at 168/67. O2 sats ranged from 85% on room air to 99% on O2 per nasal cannula at 4 L/min. Hemoglobin noted to be 9.3 with a hematocrit of 31.2. BNP was 1130. Sodium 138 and potassium 4.5 with a BUN of 16 and a creatinine of 0.9. Troponin I was elevated at 0.15. She did receive 40 of Lasix IV and a Dillard catheter was inserted. Chest x-ray revealed worsening pulmonary vascular congestion and worsening bibasilar atelectasis or pneumonia. Echocardiogram was completed with pending results. <ClareTiffanyEdie - 12/11/21 09:35> Hospital Course Hospital Course: On admission patient was diuresed with monitoring of her renal function and blood chemistries.She did become extremely tired. She was seen by cardiology And had a cardiac catheterization With the following: IMPRESSION Severe to critical two-vessel coronary artery disease involving the proximal LAD and proximal dominant right coronary artery Successful stent to the proximal LAD critical disease reduced to 0% with 1 drug-eluting stent Successful stenting of the ostial proximal and mid dominant right coronary artery critical focal disease reduced to 0% with 2 contiguous drug-eluting stents Normal ejection fraction Moderate to severely elevated LVEDP Echocardiogram from 12/04/2021 showed an ejection fraction of 55 to 60% and a grade 2 diastolic dysfunction and RVSP at 49 mmHg. There is also noted mild aortic stenosis, moderate mitral annular calcifications and a trace of mitral regurgitation. Cardiology followed her daily After placement of stents. She was continued with aspirin and Plavix and diuretic therapy. Oral spironolactone was added. She did have some issues with her bowels which did move after MiraLAX and Senokot. She did develop lethargy at and became confused. She had an excellent urinary output With a 19 pound weight loss. Chest x-ray slowly improved. Her urinalysis was noted to be negative. Lites and renal function as well as H&H were stable. With her change in mental status She was felt to possibly be suffering from another CVA/TIA. Infectious processes was ruled out. She was given haloperidol for agitation. Lasix was decreased to twice daily. It was felt that if her neuro status did not improve repeat CT or MRI might be indicated. On 12/10/2021 mental status had improved but she was still confused. On 12/11/2021 patient was alert and oriented. Vital signs were stable. She denied chest pain and shortness of breath. She had been out of bed. She was anxious to return to [facility] for ongoing
--- NOTE | 2021-12-11 09:39 | HMH.PHACLD ---
Dewayne Jose Elias IS DISCHARGING TO THE RESIDENTIAL AND I REVIEWED HER medications FOR APPROPRIATENESS FOLLOWING A STENT. PATIENT IS ON THE FOLLOWING MEDICATIONS: -ASPIRIN -PLAVIX -CARVEDILOL -LISINOPRIL -PRAVASTATIN
--- NOTE | 2021-12-11 10:17 | PC.NURSE ---
1013 report given to syeda at [facility] AT THIS TIME, DISCHAREG SUMMARY FAXED [facility] CHANGES
--- NOTE | 2021-12-12 13:10 | CARE MANAGER ---
Patient was discharged yesterday to [facility]. I called and spoke with staff regarding post discharge status. Patient is doing well and glad to be back with roommate, per staff. She has no known needs at this time.
== END 2021-12-11 11:13 | DRG 246 ==
LOC: ER 14:03 → 2ND 17:31
PROVIDERS: Internal Medicine; Nurse Practitioner Family; Physician Assistant; Admitting Provider Family Medicine; Emergency Provider Student in an Organized Health Care Education/Training Program; PCP Emergency Medicine; Visit Provider Family Medicine
DX: I11.0 Hypertensive heart disease with heart failure (principal); I50.33 Acute on chronic diastolic (congestive) heart failure; I21.4 Non-ST elevation (NSTEMI) myocardial infarction; I35.0 Nonrheumatic aortic (valve) stenosis; Z86.73 Personal history of transient ischemic attack (TIA), and cerebral infarction without residual deficits; F03.90 Unspecified dementia, unspecified severity, without behavioral disturbance, psychotic disturbance, mood disturbance, and anxiety; Z79.4 Long term (current) use of insulin; J44.9 Chronic obstructive pulmonary disease, unspecified; I25.10 Atherosclerotic heart disease of native coronary artery without angina pectoris; Z85.828 Personal history of other malignant neoplasm of skin; E78.5 Hyperlipidemia, unspecified; M19.90 Unspecified osteoarthritis, unspecified site; F32.A Depression, unspecified; Z20.822 Contact with and (suspected) exposure to COVID-19; Z86.718 Personal history of other venous thrombosis and embolism; E11.9 Type 2 diabetes mellitus without complications; K21.9 Gastro-esophageal reflux disease without esophagitis; E03.9 Hypothyroidism, unspecified; Z95.5 Presence of coronary angioplasty implant and graft; D64.9 Anemia, unspecified; K59.00 Constipation, unspecified
CPT/HCPCS: 36415; 51702; 71045; 71046; 80048; 80053; 81001; 82962; 83880; 84484; 85025; 85347; 92928; 93005; 93306; 93458; 94640; 94760; 94761; 97110; 97162; 97530; 99152; 99153; 99285; C1725; C1760; C1769; C1874; C1876; C9600; C9803; J1644; Q9967; U0003; U0005

== ENCOUNTER 2021-12-16 00:15 | Emergency (ER) | payer MEDICARE, OTHER, SELFPAY ==
[2021-12-15 23:32] VITALS: BP 142/64; PULSE 80; RESP 20; TEMP 36.8; O2SAT 92; BMI 40.3
[2021-12-15 23:43] VITALS: BP 161/61; PULSE 83; O2SAT 93
[2021-12-16] VITALS: BP 142/64; PULSE 80; O2SAT 92
[2021-12-16 00:05] VITALS: BMI 40.3
--- NOTE | 2021-12-16 00:05 | CT_ITS ---
PROCEDURE INFORMATION: Exam: CTA Chest With Contrast Exam date and time: 12/16/2021 12:57 AM Age: 81 years old Clinical indication: Shortness of breath; Additional info: SOA TECHNIQUE: Imaging protocol: Computed tomographic angiography of the chest with contrast. 3D rendering (Not supervised by radiologist): MIP and/or 3D reconstructed images were created by the technologist. Radiation optimization: All CT scans at this facility use at least one of these dose optimization techniques: automated exposure control; mA and/or kV adjustment per patient size (includes targeted exams where dose is matched to clinical indication); or iterative reconstruction. Contrast material: ISOVUE 370; Contrast volume: 70 ml; Contrast route: INTRAVENOUS (IV); COMPARISON: CT ANGIO CHEST 02/08/2021 9:57 AM FINDINGS: Pulmonary arteries: Enhancement of the pulmonary arterial circulation is satisfactory. No pulmonary embolus. Mild artifactual heterogeneity of the distal subsegmental pulmonary arteries. Aorta: No thoracic aortic aneurysm or dissection. Other arteries: Scattered atherosclerotic plaque. Left vertebral artery arises directly from the aortic arch, an anatomic variant. 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 Lungs: Dependent/compressive atelectasis. Mild pulmonary edema. Mild air trapping. Pleural spaces: Bilateral layering pleural effusions, small to moderate on the left and small on the right. No pneumothorax. Heart: Cardiomegaly. Coronary calcifications and stents. No pericardial effusion. Mediastinal space: Small hiatal hernia. Small amount of fluid in the esophagus suggesting reflux. Lymph nodes: Unremarkable. No enlarged lymph nodes. Gallbladder and bile ducts: Cholelithiasis. Bones/joints: Spondylosis. Chronic deformity the bilateral proximal humeri. No acute fracture. Soft tissues: Unremarkable. IMPRESSION: 1. No evidence of pulmonary embolus. 2. Mild pulmonary edema. 3. Small to moderate left and small right pleural effusions with associated compressive atelectasis.
--- NOTE | 2021-12-16 00:05 | XR_ITS ---
PROCEDURE INFORMATION: Exam: XR Chest Exam date and time: 12/16/2021 12:23 AM Age: 81 years old Clinical indication: Shortness of breath; Additional info: SOA TECHNIQUE: Imaging protocol: XR of the chest. Views: 1 view. COMPARISON: CR XR CHEST PORTABLE 12/08/2021 9:31 AM FINDINGS: Lungs: Lungs mildly hypoinflated. Central vascular congestion with mild pulmonary edema, decreased in severity since 12/08/2021. Airspace consolidation at the lung bases, probably compressive atelectasis. Pleural spaces: Small to moderate left and small right layering pleural effusions. No pneumothorax. Heart/Mediastinum: Cardiomegaly. Coronary stents. Aortic atherosclerosis. Bones/joints: Osteopenia. Chronic deformity of the bilateral proximal humeri. Multilevel spondylosis. IMPRESSION: 1. Mild pulmonary edema. 2. Small to moderate left and small right layering pleural effusions. Probable compressive atelectasis at the lung bases.
--- NOTE | 2021-12-16 00:12 | ECG_ITS ---
APPROVED REPORT Exam: Resting ECG HR:77 bpm ECG Measurements Heart Rate 77 AXES MO 189 P 3 QRSd 115 QRS -33 QT 412 T 28 QTc 444 Conclusion SINUS RHYTHM LEFT AXIS DEVIATION [QRS AXIS < -30] PATTERN CONSISTENT WITH PULMONARY DISEASE INCOMPLETE RIGHT BUNDLE BRANCH BLOCK [90+ ms QRS DURATION, TERMINAL R IN V1/V2, 40+ ms S IN I/aVL/V4/V5/V6] ABNORMAL ECG UNCONFIRMED REPORT Electronically signed by : John Rosado MD 12/16/2021 12:26:42
[2021-12-16 00:14] LABS: Basophils # 0.1 K/mm3 (0-0.2); Basophils % 1.3 % (0.1-2.0); Eosinophils # 0.1 K/mm3 (0.0-0.4); Eosinophils % 1.2 % (0.1-12.0); Hemoglobin 9.8 g/dL (12.2-16.2); Lymphocytes % 31.7 % (10-50); Mean Corpuscular HGB Conc 31.8 g/dL (31.8-35.4); Mean Corpuscular Volume 91.3 fl (81-99); Monocytes # 0.6 K/mm3 (0.1-1.0); Monocytes % 9.4 % (1.7-9.3); Neutrophils # 3.6 K/mm3 (1.8-7.8); Neutrophils % 56.4 % (37.0-80.0); Platelet Count 347 K/mm3 (142-424); Red Blood Count 3.39 M/mm3 (4.20-5.40); Red Cell Distribution Width 17.7 % (11.5-17.5); White Blood Count 6.4 K/mm3 (4.8-10.8)
--- NOTE | 2021-12-16 00:20 | HMH.EDWEAK ---
ED Disposition Clinical Impression: Hypertensive heart disease with acute on chronic diastolic congestive heart failure Disposition: Home, Self-Care Condition on Discharge: Good Instructions: DI for Heart Failure Additional Instructions: resume orders at [facility] Referrals: Jewel Morrow MD [Primary Care Provider] - - Critical Care Critical Care Time: No Attestation: On 12/16/21, the high probability of a clinically significant, sudden or life threatening deterioration of the following system(s) required my full and direct attention, intervention and personal management. The time I documented below is in addition to time spent performing reported procedures but includes the following listed in this critical care notation. Medical Decision Making - Medical Records Medical records reviewed: Yes: I reviewed the patient's medical records. - Wojciech Inquiry Pt receiving controlled substance: No Vital Signs: 12/15/21 23:32 12/15/21 23:43 12/16/21 00:00 Temperature 98.2 F Temperature Source Rectal Pulse Rate 83 80 Pulse Rate [Right] 80 Respiratory Rate 20 Blood Pressure 161/61 H 142/64 H Blood Pressure [Right Arm] 142/64 H Blood Pressure Mean Blood Pressure Mean [Right Arm] 90 Blood Pressure Source [Right Arm] Automatic Cuff 02 Sat by Pulse Oximetry 92 L 93 L 92 L Oxygen Delivery Method Nasal Cannula Nasal Cannula Nasal Cannula Oxygen Flow Rate (LPM) 2 2 2 12/16/21 00:30 12/16/21 03:06 12/16/21 03:30 Temperature Temperature Source Pulse Rate 77 82 78 Pulse Rate [Right] Respiratory Rate Blood Pressure 149/67 H 190/86 H 158/66 H Blood Pressure [Right Arm] Blood Pressure Mean 105 Blood Pressure Mean [Right Arm] Blood Pressure Source [Right Arm] 02 Sat by Pulse Oximetry 89 L 94 L 93 L Oxygen Delivery Method Nasal Cannula Nasal Cannula Oxygen Flow Rate (LPM) 2 2 - Lab Data Lab results reviewed: Yes: I reviewed the patient's lab results. Lab Results 12/16/21 00:00: WBC 6.4, RBC 3.39 L, Hgb 9.8 L, Hct 31.0 L, MCV 91.3, MCH 29.0, MCHC 31.8, RDW 17.7 H, Plt Count 347, MPV 9.0, Neut % (Auto) 56.4, Lymph % (Auto) 31.7, [place] % (Auto) 9.4 H, Eos % (Auto) 1.2, Baso % (Auto) 1.3, Neut # (Auto) 3.6, Lymph # (Auto) 2.0, [place] # (Auto) 0.6, Eos # (Auto) 0.1, Baso # (Auto) 0.1, ESR 59 H 12/16/21 00:00: Sodium 143, Potassium 3.8, Chloride 106, Carbon Dioxide 35 H, Anion Gap 5.8, BUN 32 H, Creatinine 1.10 H, Estimated Creat Clear 71, Estimated GFR 48 L, Est GFR ( Amer) 58 L, Glucose 152 H, Calcium 9.0, Magnesium 1.9, Total Bilirubin 0.3, AST 33, ALT 26, Alkaline Phosphatase 129 H, Troponin I 0.04 H, C-Reactive Protein 2.3, Total Protein 6.3, Albumin 3.5, Globulin 2.8, Albumin/Globulin Ratio 1.3, Procalcitonin 0.082 12/16/21 00:00: NT-Pro-B Natriuret Pep 475 H, TSH 12.90 H 12/16/21 00:00: Free T4 1.09 12/16/21 00:01: Lipase 314 H 12/16/21 00:01: Amylase 72 12/16/21 03:02: Troponin I 0.04 H Result diagrams: 12/16/21 00:00 12/16/21 00:00 Orders (Tests/Meds): ED MEDICATIONS Discontinued Medications Generic Name Dose Route Start Last Admin Trade Name Freq PRN Reason Stop Dose Admin Iopamidol 70 ml 12/16/21 01:07 12/16/21 01:09 Iopamidol-370 (76%);100ml Bottle IV 12/16/21 01:08 70 ml ONCE ONE Administration Sodium Chloride 40 ml 12/16/21 01:07 12/16/21 01:09 0.9 % Sodium Chloride 50 Ml Vial IV 12/16/21 01:08 40 ml ONCE ONE Administration Sodium Chloride 10 ml 12/16/21 01:07 12/16/21 01:09 Sodium Chloride 0.9% 10ml Syr (Rad Only) IV 12/16/21 01:08 10 ml ONCE ONE Administration ORDERS Category Date Time Status Troponin I Q3H Lab 12/16/21 06:15 Ordered Urinalysis and Microscopic Stat Lab 12/16/21 00:05 Ordered - Radiology Data #1 Image(s): Chest Image Reviewed: Yes I have reviewed radiologist's interpretation Preliminary Findings: Abnormal (chf) - CT Data CT Scan: Chest Time Received: 05:[address] Rev
[2021-12-16 00:29] LABS: Chloride 106 mmol/L (98-107); Potassium 3.8 mmoL/L (3.5-5.1); Sodium 143 mmol/L (136-145)
[2021-12-16 00:30] VITALS: BP 149/67; PULSE 77; O2SAT 89
[2021-12-16 00:30] LABS: Alanine Aminotransferase 26 U/L (12-78); Albumin Level 3.5 g/dl (3.5-5.0); Albumin/Globulin Ratio 1.3 (1.1-1.8); Alkaline Phosphatase 129 U/L (38-126); Anion Gap 5.8 mEq/L (5-15); Aspartate Amino Transferase 33 U/L (14-36); Bilirubin,Total 0.3 mg/dl (0.2-1.3); Blood Urea Nitrogen 32 mg/dl (7-17); Carbon Dioxide 35 mmol/L (22.0-30.0); Creatinine Clearance Estimated 71 mL/min (50-200); Estimated Glomerular Filt Rate 48 ml/min (>60); GFR (African American) 58 ML/MIN (>60); Globulin 2.8 g/dL (1.3-3.2); Glucose 152 mg/dl (74-100); Magnesium 1.9 mg/dl (1.6-2.3); Total Protein,Serum 6.3 g/dl (6.3-8.2)
[2021-12-16 00:35] LABS: C-Reactive Protein 2.3 mg/L (0-4)
[2021-12-16 00:38] LABS: NT Pro Brain Natriuretic Pep. 475 pg/mL (0-450)
[2021-12-16 00:39] LABS: Erythrocyte Sedimentation Rate 59 mm/hr (0-30)
[2021-12-16 00:44] LABS: Troponin I 0.04 ng/ml (0.00-0.034)
[2021-12-16 00:46] LABS: Free T4 (Free Thyroxine) 1.09 ng/dl (0.78-2.19)
[2021-12-16 00:48] LABS: Procalcitonin 0.082 ng/mL (0.0-2.0)
[2021-12-16 00:56] LABS: Lipase 314 U/L (23-300)
[2021-12-16 03:06] VITALS: BP 190/86; PULSE 82; O2SAT 94
[2021-12-16 03:30] VITALS: BP 158/66; PULSE 78; O2SAT 93
[2021-12-16 03:33] LABS: Troponin I 0.04 ng/ml (0.00-0.034)
[2021-12-16 03:55] LABS: Amylase 72 U/L (30-110)
[2021-12-16 06:00] VITALS: BP 146/82; PULSE 68; RESP 18; TEMP 36.7; O2SAT 99
== END 2021-12-16 06:15 | disposition home or self-care (01) ==
PROVIDERS: Emergency Provider Emergency Medicine; PCP Emergency Medicine
DX: I11.0 Hypertensive heart disease with heart failure (principal); E11.9 Type 2 diabetes mellitus without complications; K21.9 Gastro-esophageal reflux disease without esophagitis; E78.5 Hyperlipidemia, unspecified; F33.1 Major depressive disorder, recurrent, moderate; I25.10 Atherosclerotic heart disease of native coronary artery without angina pectoris; Z79.899 Other long term (current) drug therapy
CPT/HCPCS: 71045; 71275; 80053; 82150; 83690; 83735; 83880; 84145; 84439; 84443; 84484; 85025; 85651; 86140; 93005; 99284; Q9967

== ENCOUNTER 2021-12-17 09:56 | Observation (INO) | payer MEDICARE, OTHER, SELFPAY ==
[2021-12-17] VITALS (13 sets, daily range): BP systolic 117–186; BP diastolic 60–92; PULSE 64–106; RESP 18–22; TEMP 36.6–36.8; O2SAT 95–100; BMI 34.0; BMI 33.7
--- NOTE | 2021-12-17 10:27 | ECG_ITS ---
APPROVED REPORT Exam: Resting ECG HR:64 bpm ECG Measurements Heart Rate 64 AXES ND 194 P 26 QRSd 109 QRS -27 QT 428 T 30 QTc 437 Conclusion SINUS RHYTHM BORDERLINE LEFT AXIS DEVIATION [QRS AXIS < -20] INCOMPLETE RIGHT BUNDLE BRANCH BLOCK [90+ ms QRS DURATION, TERMINAL R IN V1/V2, 40+ ms S IN I/aVL/V4/V5/V6] BORDERLINE ECG UNCONFIRMED REPORT Electronically signed by : John Rosado MD 12/17/2021 20:08:33
--- NOTE | 2021-12-17 10:37 | HMH.EDGENADL ---
ED Disposition Clinical Impression: Hepatic encephalopathy, Increased ammonia level CHF (congestive heart failure) Qualifiers: Heart failure type: unspecified Heart failure chronicity: acute on chronic Qualified Code(s): I50.9 - Heart failure, unspecified Disposition: Admitted as Observation Condition on Discharge: Fair - Critical Care Critical Care Time: No Attestation: On 12/17/21, the high probability of a clinically significant, sudden or life threatening deterioration of the following system(s) required my full and direct attention, intervention and personal management. The time I documented below is in addition to time spent performing reported procedures but includes the following listed in this critical care notation. Medical Decision Making - Medical Records Medical records reviewed: Yes: I reviewed the patient's medical records. MR Comment: Seen in this emergency department yesterday. Had an extensive work-up including CT angiogram of the chest. She was hypertensive and had findings of mild pulmonary edema and pleural effusions on chest x-ray and CT of the chest. TSH noted to be elevated. - Wojciech Inquiry Pt receiving controlled substance: No Vital Signs: 12/17/21 10:00 12/17/21 10:15 12/17/21 10:23 Temperature 98.0 F Temperature Source Oral Pulse Rate 106 H Pulse Rate [Left Radial] 70 Respiratory Rate 18 Blood Pressure 117/72 186/64 H Blood Pressure [Right Arm] 178/75 H Blood Pressure Mean 81 116 Blood Pressure Mean [Right Arm] 109 02 Sat by Pulse Oximetry 95 100 98 Oxygen Delivery Method Room Air 12/17/21 10:30 12/17/21 11:30 12/17/21 12:00 Temperature Temperature Source Pulse Rate 66 64 69 Pulse Rate [Left Radial] Respiratory Rate Blood Pressure 159/80 H 165/68 H 118/92 H Blood Pressure [Right Arm] Blood Pressure Mean 100 Blood Pressure Mean [Right Arm] 02 Sat by Pulse Oximetry 100 99 100 Oxygen Delivery Method 12/17/21 12:01 12/17/21 12:31 12/17/21 13:00 Temperature Temperature Source Pulse Rate 65 70 Pulse Rate [Left Radial] Respiratory Rate Blood Pressure 177/70 H 163/60 H 170/72 H Blood Pressure [Right Arm] Blood Pressure Mean 105 94 94 Blood Pressure Mean [Right Arm] 02 Sat by Pulse Oximetry 99 99 Oxygen Delivery Method - Lab Data Lab Results 12/17/21 10:14: Urine Color Yellow, Urine Appearance Sl cloudy, Urine pH 7.5, Ur Specific [place] 1.015, Urine Protein Negative, Urine Glucose (UA) Negative, Urine Ketones Negative, Urine Blood Negative, Urine Nitrate Positive, Urine Bilirubin Negative, Urine Urobilinogen 0.2, Ur Leukocyte Esterase Trace, Urine RBC Occasional, Urine WBC 3-5, Ur Squamous Epith Cells Occasional, Urine Bacteria Trace 12/17/21 11:23: WBC 5.5, RBC 3.31 L, Hgb 9.6 L, Hct 30.0 L, MCV 90.7, MCH 28.8, MCHC 31.8, RDW 17.7 H, Plt Count 322, MPV 9.3, Neut % (Auto) 56.6, Lymph % (Auto) 31.4, [place] % (Auto) 8.7, Eos % (Auto) 2.0, Baso % (Auto) 1.2, Neut # (Auto) 3.1, Lymph # (Auto) 1.7, [place] # (Auto) 0.5, Eos # (Auto) 0.1, Baso # (Auto) 0.1 12/17/21 11:23: Sodium 144, Potassium 4.1, Chloride 108 H, Carbon Dioxide 33 H, Anion Gap 7.1, BUN 26 H, Creatinine 1.10 H, Estimated Creat Clear 61, Estimated GFR 48 L, Est GFR ( Amer) 58 L, Glucose 101 H, Calcium 8.4, Total Bilirubin 0.5, AST 35, ALT 21, Alkaline Phosphatase 124, Troponin I 0.03, Total Protein 5.8 L, Albumin 3.0 L D, Globulin 2.8, Albumin/Globulin Ratio 1.1 12/17/21 11:23: Lactate 1.1 12/17/21 11:56: SARS-CoV-2 (PCR) Not detected, Influenza A Untype (PCR) Not detected, Influenza Type B (PCR) Not detected 12/17/21 14:00: Troponin I 0.03 Result diagrams: 12/17/21 11:23 12/17/21 11:23 Orders (Tests/Meds): ED MEDICATIONS Generic Name Dose Route Start Last Admin Trade Name Freq PRN Reason Stop Dose Admin Sodium Chloride 10 ml 12/17/21 10:40 Sodium Chloride 0.9% 10ml Flush Syringe IV 01/16/22 10:39 NEEDED PRN Maint
[2021-12-17 10:45] LABS: Microscopic, Urine URINE MICROSCOPIC (MICROSCOPIC)
[2021-12-17 10:49] LABS: Appearance,Urine SL CLOUDY (Clear); Bilirubin,Urine Negative (Negative); Blood, Urine Negative (Negative); Color,Urine YELLOW (Yellow); Glucose,Urine (UA) Negative (Negative); Ketones,Urine Negative (Negative); Leukocyte Esterase,Urine TRACE (Negative); Nitrate,Urine POSITIVE (Negative); PH,Urine 7.5 (5.0-8.5); Protein,Urine Negative (Negative); Specific Gravity, Urine 1.015 (1.005-1.030); Urobilinogen,Urine 0.2 EU/dl (0.2)
--- NOTE | 2021-12-17 11:15 | XR_ITS ---
PROCEDURE INFORMATION: Exam: XR Chest Exam date and time: 12/17/2021 12:00 PM Age: 81 years old Clinical indication: Other: AMS TECHNIQUE: Imaging protocol: XR of the chest. Portable AP exam 12:02 p.m. Views: 1 view. COMPARISON: CR XR CHEST PORTABLE 12/16/2021 12:23 AM FINDINGS: Tubes, catheters and devices: Overlying oxygen tubing. Lungs: Persistent persistent discoid atelectasis in the left lingula, milder patchy subsegmental atelectasis in the lower lung schwartz. No definite consolidation. Ground-glass airspace opacities seen on yesterday's CT exam are not as well demonstrated on portable x-ray. Pleural spaces: Small layering pleural effusions were better seen on yesterday's CTA exam. No pneumothorax. Heart/Mediastinum: Chronic cardiomegaly, enlarged cardiac silhouette. Vasculature: Slightly tortuous aorta with calcified atherosclerotic plaques. Bones/joints: Osteopenia. Chronic humerus deformities.There are spinal degenerative changes, with multilevel disc narrrowing and spondylosis. IMPRESSION: 1. Cardiomegaly and likely mild vascular congestion. Ground-glass airspace disease and small bilateral layering pleural effusions were better seen on the prior CTA exam. 2. No focal consolidation or new/acute findings compared with 12/16/2021.
[2021-12-17 11:24] LABS: Bacteria,Urine Trace /lpf; RBC,Urine Occasional #/hpf (0-3); Squamous Epithelial Cell,Urine Occasional #/hpf (0-5)
[2021-12-17 11:34] LABS: Basophils # 0.1 K/mm3 (0-0.2); Basophils % 1.2 % (0.1-2.0); Eosinophils # 0.1 K/mm3 (0.0-0.4); Hemoglobin 9.6 g/dL (12.2-16.2); Lymphocytes # 1.7 K/mm3 (0.7-4.5); Lymphocytes % 31.4 % (10-50); Mean Corpuscular HGB Conc 31.8 g/dL (31.8-35.4); Mean Corpuscular Hemoglobin 28.8 pg (27.0-31.2); Mean Corpuscular Volume 90.7 fl (81-99); Mean Platelet Volume 9.3 fl (7.4-10.4); Monocytes # 0.5 K/mm3 (0.1-1.0); Monocytes % 8.7 % (1.7-9.3); Neutrophils # 3.1 K/mm3 (1.8-7.8); Neutrophils % 56.6 % (37.0-80.0); Platelet Count 322 K/mm3 (142-424); Red Blood Count 3.31 M/mm3 (4.20-5.40); Red Cell Distribution Width 17.7 % (11.5-17.5); White Blood Count 5.5 K/mm3 (4.8-10.8)
[2021-12-17 11:35] LABS: Chloride 108 mmol/L (98-107); Potassium 4.1 mmoL/L (3.5-5.1); Sodium 144 mmol/L (136-145)
[2021-12-17 11:38] LABS: Alanine Aminotransferase 21 U/L (12-78); Albumin/Globulin Ratio 1.1 (1.1-1.8); Alkaline Phosphatase 124 U/L (38-126); Anion Gap 7.1 mEq/L (5-15); Aspartate Amino Transferase 35 U/L (14-36); Bilirubin,Total 0.5 mg/dl (0.2-1.3); Blood Urea Nitrogen 26 mg/dl (7-17); Calcium 8.4 mg/dl (8.4-10.2); Carbon Dioxide 33 mmol/L (22.0-30.0); Creatinine Clearance Estimated 61 mL/min (50-200); Estimated Glomerular Filt Rate 48 ml/min (>60); GFR (African American) 58 ML/MIN (>60); Globulin 2.8 g/dL (1.3-3.2); Glucose 101 mg/dl (74-100); Lactic Acid 1.1 mmol/L (0.7-2.1); Total Protein,Serum 5.8 g/dl (6.3-8.2)
[2021-12-17 11:50] LABS: Troponin I 0.03 ng/ml (0.00-0.034)
[2021-12-17 12:00] LABS: Coronavirus 19, PCR Not Detected (NotDetected); Influenza A, PCR Not Detected (NotDetected); Influenza B, PCR Not Detected (NotDetected)
--- NOTE | 2021-12-17 12:27 | PC.NURSE ---
lab unable to collect blood cultures. Md faustin
[2021-12-17 14:59] LABS: Troponin I 0.03 ng/ml (0.00-0.034)
[2021-12-17 16:10] LABS: Ammonia 120 umol/L (9-30)
--- NOTE | 2021-12-17 16:29 | PC.NURSE ---
called to give report on patient. stated they would call back for report.
--- NOTE | 2021-12-17 20:29 | PC.NURSE ---
Report called to [facility] on OB at 2010.
--- NOTE | 2021-12-17 21:34 | PC.NURSE ---
late entry: 2020 report received from Cassie KEBEDE 2100 pt to floor- full bed bath given r/t incontinent episode of diarrhea and urine.
[2021-12-17 22:21] LABS: POC Glucose,Bedside 125 (70-110)
[2021-12-18 03:44] VITALS: BP 188/77; PULSE 83; RESP 18; TEMP 36.6; O2SAT 97
--- NOTE | 2021-12-18 04:51 | PC.NURSE ---
PT HAS BEEN ALERT TO SELF MOST OF SHIFT WITH PERIODS OF CLARITY. NO ACUTE CHANGES FROM PREVIOUS ASSESSMENT. PT HAS BEEN UP TO [facility] WITH ASSISTANCE X2. WILL CONTINUE TO MONITOR.
--- NOTE | 2021-12-18 04:52 | PC.NURSE ---
LATE ENTRY: 0400 NEW IV IN [place] OBTAINED VIA ULTRASOUND BY ELMER KEBEDE (#20). #22 REMOVED PRIOR R/T INFILTRATION.
[2021-12-18 05:50] LABS: POC Glucose,Bedside 162 (70-110)
--- NOTE | 2021-12-18 07:28 | P.CONPHA_ITS ---
[facility] Pharmacy VTE Monitoring - Patient Demographics Admission date: 12/17/21 Report Date: 12/18/21 Time: 07:28 Allergies/Adverse Reactions: Patient Allergies Iodinated Contrast Media Allergy (Intermediate, Verified 10/19/21 12:55) naproxen [NAPROXEN] Allergy (Mild, Verified 10/19/21 12:55) Height: 1.65 m Weight: 91.881 kg Patient Problems: Current Active Problems Encephalopathy (Acute) Congestive heart failure (Acute) Hepatic encephalopathy (Acute) Increased ammonia level (Acute) - VTE Risk Labs: VTE Related Lab Results Hgb 9.6 g/dL (12.2-16.2) L 12/17/21 11:23 Hct 30.0 % (37.0-47.0) L 12/17/21 11:23 Plt Count 322 K/mm3 (142-424) 12/17/21 11:23 BUN 26 mg/dl (7-17) H 12/17/21 11:23 Creatinine 1.10 mg/dl (0.52-1.04) H 12/17/21 11:23 Estimated Creat Clear 61 mL/min (50-200) 12/17/21 11:23 VTE Score: 3 VTE Risk Level: Low Risk - Prophylaxis VTE Prophylaxis Ordered?: Yes Types of VTE Prophylaxis: TEDS Knee High Location of Applied Device: Bilateral Lower Extremeties
--- NOTE | 2021-12-18 07:33 | PC.NURSE ---
REPORT GIVEN TO ANGELINA KEBEDE
[2021-12-18 07:53] LABS: Ammonia 34 umol/L (9-30)
[2021-12-18 08:00] VITALS: BP 121/57; PULSE 74; RESP 17; TEMP 36.7; O2SAT 94
--- NOTE | 2021-12-18 08:38 | US_ITS ---
FINAL REPORT CLINICAL HISTORY: elevated ammonia FINDINGS: ULTRASOUND RIGHT UPPER QUADRANT Sonographic imaging of the right upper quadrant was obtained. The pancreas is partially obscured. The liver is unremarkable. There are multiple gallstones within the gallbladder. There is no gallbladder wall thickening. There is no biliary ductal dilatation. The common duct is normal at 3 mm. Limited images of the right kidney are unremarkable. IMPRESSION: Gallstones within the gallbladder. Reviewed, Interpreted and Dictated by Nik Russ MD Transcribed by Gisel Fleming Authenticated by Nik Russ MD on 12/18/2021 12:14:[address] [facility]
--- NOTE | 2021-12-18 09:14 | HMH.HP ---
*Admission Date: 12/17/21 <Edie Sparks - 12/18/21 09:14> *Chief complaint: Altered mental status <Edie Sparks - 12/18/21 09:14> *History of present illness: Ms. Moctezuma is an 80-year-old female resident of [facility] with a history of dementia, prior strokes, diabetes mellitus, congestive heart failure, GI bleed, diverticulosis and urinary tract infections. She was brought to [facility] for evaluation when she was found to have altered mental status. She also had a previous work-up on 12/16/2021 at which time she presented to the [facility] ER with headache, weakness and generally not feeling well. With this presentation she had a CT a of the chest which revealed no pulmonary embolism, With mild pulmonary edema, small to moderate left and small right pleural effusion with associated compressive atelectasis. Her hemoglobin was stable at 9.8 and white count was normal at 6400. Renal function was her norm with a BUN of 32 and a creatinine of 1.10. Also to note patient was hospitalized 12/04- 12/11/2021 With NSTEMI, pulmonary edema, bilateral lower extremity edema, coronary artery disease and diabetes, renal insufficiency, anemia. With this admission she had drug-eluting coronary stents placed. She was also noted to have hypertensive heart disease with acute on chronic diastolic congestive heart failure. With presentation to the ER with this admission patient was found to have elevated ammonia level. She was disoriented and was unable to give history. She repeatedly said help me help me help me . She does not recall this. She was thus admitted for further evaluation and treatment. This a.m. at time of exam patient is alert. Nursing staff stated that she has been periodically disoriented but has had great improvement with her mental status. She did eat a good breakfast. She denies any chest pain or shortness of breath. She states her stomach has been doing fine without nausea or vomiting or pain. Since going back to [facility] she has been out of bed but has not walked. Laboratory data on admission show sodium of 144 and potassium of 4.1 with a BUN of 26 and creatinine of 1.10.. Troponin I has been normal at 0.03 and 0.03. Ammonia level is elevated at 120. <Edie Sparks - 12/18/21 12:20> [facility] History Medical History: Reports:: Atherosclerotic Heart Disease, Congestive Heart Failure, Congenital Heart Disease, Coronary Artery Disease, Cerebrovascular Accident, Deep Vein Thrombosis, Depression, Diabetes Mellitus Type 2, Gastroesophageal Reflux Disease(GERD), Gastrointestinal Bleed, Hyperlipidemia, Hypertension, Renal Insufficiency, Urinary Tract Infection Denies:: Cancer, Diabetes Mellitus Type 1, Internal Pacemaker, MRSA, Seizures <Edie Sparks 12/18/21 09:14> *Have you ever received a pneumonia vaccine?: Yes <Edie Sparks 12/18/21 09:14> *Have you received a flu vaccine this season?: Yes <Edie Sparks 12/18/21 09:14> Other Medical History: Reports: Anemia, Arthritis, Hypothyroidism, Thyroid Disease <Edie Sparks 12/18/21 09:14> Other Surgeries: Yes: Appendectomy, Cardiac Catheterization, Cholecystectomy, Colonoscopy, Coronary Stent, EGD, Hernia Repair, Hysterectomy-Total, Skin Cancer Excision, Other. No: Pacemaker <Edie Sparks 12/18/21 09:14> Amputation: No <Edie Sparks 12/18/21 09:14> Fractures: Yes (L humerus, R humerus) <Tiffany Sparkshy 12/18/21 09:14> - *Social History Smoking Status: Never smoker <Edie Sparks 12/18/21 09:14> Alcohol Intake: never <Edie Sparks 12/18/21 09:14> Alcohol Intake Frequency:: other <Edie Sparks 12/18/21 09:14> Substance Use Type: denies use <Edie Sparks 12/18/21 09:14> *Occupational Status:: retired <Edie Sparks 12/18/21 09:14> Housing: prison <Edie Sparks 12/18/21 09:14> Household Members: none <Edie Sparks 12/18/21 09:14> *Travel in the last 8 weeks: None <Edie Sparks 12/18/21
--- NOTE | 2021-12-18 09:58 | HMH.PHAINT ---
home medication list verified using list from outpatient list
[2021-12-18 11:09] LABS: POC Glucose,Bedside 157 (70-110)
--- NOTE | 2021-12-18 13:11 | SW/DCPLANNER ---
Addendum entered by Kimber Browning 12/19/21 09:43: The plan for this patient is to return to [facility] today. I have updated Shikha w/ [facility] regarding discharge plan: no further COVID testing is needed at this time. Original Note: This patient currently resides at [facility] level of care. I will continue to follow up with Shikha from [facility] regarding this patient. Discharge date is unknown at this time.
[2021-12-18 16:00] VITALS: BP 132/56; PULSE 72; RESP 18; TEMP 36.8; O2SAT 94
[2021-12-18 16:08] LABS: POC Glucose,Bedside 238 (70-110)
[2021-12-18 20:00] VITALS: BP 153/67; PULSE 74; RESP 19; TEMP 36.8; O2SAT 97
[2021-12-19 00:45] LABS: POC Glucose,Bedside 338 (70-110)
[2021-12-19 04:00] VITALS: BP 115/49; PULSE 72; RESP 19; TEMP 36.9; O2SAT 93
[2021-12-19 06:31] LABS: POC Glucose,Bedside 160 (70-110)
[2021-12-19 06:55] LABS: Hematocrit 27.1 % (37.0-47.0); Hemoglobin 8.9 g/dL (12.2-16.2)
[2021-12-19 06:58] LABS: Alanine Aminotransferase 18 U/L (12-78); Albumin Level 2.9 g/dl (3.5-5.0); Albumin/Globulin Ratio 1.2 (1.1-1.8); Alkaline Phosphatase 106 U/L (38-126); Anion Gap 8.5 mEq/L (5-15); Aspartate Amino Transferase 25 U/L (14-36); Bilirubin,Total 0.4 mg/dl (0.2-1.3); Blood Urea Nitrogen 22 mg/dl (7-17); Calcium 8.5 mg/dl (8.4-10.2); Carbon Dioxide 28 mmol/L (22.0-30.0); Chloride 109 mmol/L (98-107); Creatinine Clearance Estimated 48 mL/min (50-200); Estimated Glomerular Filt Rate 39 ml/min (>60); GFR (African American) 47 ML/MIN (>60); Globulin 2.5 g/dL (1.3-3.2); Glucose 155 mg/dl (74-100); Potassium 3.5 mmoL/L (3.5-5.1); Sodium 142 mmol/L (136-145); Total Protein,Serum 5.4 g/dl (6.3-8.2)
--- NOTE | 2021-12-19 07:58 | HMH.ACPN2 ---
<Edie Sparks - Last Filed: 12/19/21 07:58> Internal Medicine - PN: Subj *Date: 12/19/21 *Time: 07:58 Interval history: Patient slept about 5 hours last night. She states she feels well. She was out of bed several times yesterday. She is eating without difficulty. Her bowels did move. She denies chest pain and shortness of breath. Ultrasound of the liver showed gallstones within the gallbladder.Couple. H&H today is 8.9 and 27.1. Blood chemistries show potassium of 3.5 with a sodium of 142. BUN and creatinine are 22 and 1.3. Liver function studies are not elevated. Exam Vital signs and Labs for Last 24 Hours: Temp Pulse Resp BP Pulse Ox 98.4 F 72 19 115/49 L 93 L 12/19/21 04:00 12/19/21 04:00 12/19/21 04:00 12/19/21 04:00 12/19/21 04:00 Laboratory Results - last 24 hr 12/18/21 11:01: POC Glucose 157 H 12/18/21 15:54: POC Glucose 238 H 12/18/21 21:12: POC Glucose 338 H* 12/19/21 06:24: POC Glucose 160 H 12/19/21 06:26: Hgb 8.9 L, Hct 27.1 L 12/19/21 06:26: Sodium 142, Potassium 3.5, Chloride 109 H, Carbon Dioxide 28, Anion Gap 8.5, BUN 22 H, Creatinine 1.30 H, Estimated Creat Clear 48, Estimated GFR 39 L, Est GFR ( Amer) 47 L, Glucose 155 H, Calcium 8.5, Total Bilirubin 0.4, AST 25 D, ALT 18, Alkaline Phosphatase 106, Total Protein 5.4 L, Albumin 2.9 L, Globulin 2.5, Albumin/Globulin Ratio 1.2 I & O for Last 24 hours: Intake & Output 12/16/21 12/17/21 12/18/21 12/19/21 11:59 11:59 11:59 11:59 Weight 217 lb 202 lb 9 oz - Constitutional no acute distress - *Routine Respiratory Exam Present: crackles (Bibasilar) - *Routine Cardiovascular Exam Present: RRR, murmur - *Routine Abdominal Exam Present: soft, normoactive bowel sounds, tenderness (Mild epigastric) - *Routine Extremities Exam Present: edema (Some neuro ankle edema) - *Routine Neurological Exam Present: alert, oriented X3 Assessment and Plan (1) Increased ammonia level Status: Acute Category: Medical Code(s): R79.89 - Other specified abnormal findings of blood chemistry (2) Encephalopathy Status: Acute Category: Medical Code(s): G93.40 - Encephalopathy, unspecified (3) Impaired mobility Status: Acute Category: Medical Code(s): Z74.09 - Other reduced mobility (4) Chronic anemia Status: Acute Category: Medical Code(s): D64.9 - Anemia, unspecified - Assessment and plan all Dx Assessment and Plan for all problems:: Labs are stable today. Patient is ready to return to [facility]. <Harry Cotter - Last Filed: 12/19/21 18:53> Internal Medicine - PN: Subj *Date: 12/19/21 *Time: 18:52 Exam Vital signs and Labs for Last 24 Hours: Temp Pulse Resp BP Pulse Ox 98.3 F 66 18 115/56 L 94 L 12/19/21 09:04 12/19/21 09:04 12/19/21 09:04 12/19/21 09:04 12/19/21 09:04 Laboratory Results - last 24 hr 12/18/21 21:12: POC Glucose 338 H* 12/19/21 06:24: POC Glucose 160 H 12/19/21 06:26: Hgb 8.9 L, Hct 27.1 L 12/19/21 06:26: Sodium 142, Potassium 3.5, Chloride 109 H, Carbon Dioxide 28, Anion Gap 8.5, BUN 22 H, Creatinine 1.30 H, Estimated Creat Clear 48, Estimated GFR 39 L, Est GFR ( Amer) 47 L, Glucose 155 H, Calcium 8.5, Total Bilirubin 0.4, AST 25 D, ALT 18, Alkaline Phosphatase 106, Total Protein 5.4 L, Albumin 2.9 L, Globulin 2.5, Albumin/Globulin Ratio 1.2 I & O for Last 24 hours: Intake & Output 12/17/21 12/18/21 12/19/21 12/20/21 11:59 11:59 11:59 11:59 Weight 217 lb 202 lb 9 oz 202 lb 6.15 oz Assessment and Plan (1) Increased ammonia level Status: Acute Category: Medical Code(s): R79.89 - Other specified abnormal findings of blood chemistry (2) Encephalopathy Status: Acute Category: Medical Code(s): G93.40 - Encephalopathy, unspecified (3) Impaired mobility Status: Chronic Category: Medical Code(s): Z74.09 - Other reduced mobility (4) Chronic anemia Status: Chronic Category: Medica
[2021-12-19 08:52] VITALS: BMI 33.7
--- NOTE | 2021-12-19 08:57 | HMH.DCSUM ---
General - General Admission date:: 12/17/21 <CyndeeHarry esparza - 12/26/21 18:08> 12/17/21 <ClareEdie - 12/19/21 09:18> Discharge date: 12/19/21 <SparksEdie - 12/19/21 09:18> HPI HPI: Ms. Moctezuma is an 80-year-old female resident of [facility] with a history of dementia, prior strokes, diabetes mellitus, congestive heart failure, GI bleed, diverticulosis and urinary tract infections. She was brought to [facility] for evaluation when she was found to have altered mental status. She also had a previous work-up on 12/16/2021 at which time she presented to the [facility] ER with headache, weakness and generally not feeling well. With this presentation she had a CT a of the chest which revealed no pulmonary embolism, With mild pulmonary edema, small to moderate left and small right pleural effusion with associated compressive atelectasis. Her hemoglobin was stable at 9.8 and white count was normal at 6400. Renal function was her norm with a BUN of 32 and a creatinine of 1.10. Also to note patient was hospitalized 12/04- 12/11/2021 With NSTEMI, pulmonary edema, bilateral lower extremity edema, coronary artery disease and diabetes, renal insufficiency, anemia. With this admission she had drug-eluting coronary stents placed. She was also noted to have hypertensive heart disease with acute on chronic diastolic congestive heart failure. With presentation to the ER with this admission patient was found to have elevated ammonia level. She was disoriented and was unable to give history. She repeatedly said help me help me help me . She did not recall this. She was thus admitted for further evaluation and treatment. This a.m. at time of exam patient is alert. Nursing staff stated that she had been periodically disoriented but her mental status had greatly improved. She did eat a good breakfast. She denied any chest pain or shortness of breath. She stated her stomach had been doing fine without nausea or vomiting or pain. Since going back to [facility] she had been out of bed but had not walked. Laboratory data on admission show sodium of 144 and potassium of 4.1 with a BUN of 26 and creatinine of 1.10.. Troponin I was normal at 0.03 and 0.03. Ammonia level was elevated at 120. <Eide Sparks - 12/19/21 09:18> Hospital Course Hospital Course: Patient did well after ammonia level normalized with improved cognition.. She was able to eat and drink without difficulty. She was out of bed to the bathroom numerous times. Blood chemistries remained stable. Troponin I was negative. Liver functions test remained normal. She repeatedly denied chest pain and shortness of breath. Peripheral edema was less. She did have a ultrasound of her liver Which was unremarkable. The ultrasound did show gallstones. Changed to Bumex from Lasix. Like 6 is noted to cause an increase in ammonia levels in some cases. On 12/19/2021 patient remained alert. She was stable to be transferred back to [facility]. Meds as per medication reconciliation sheet. To be followed by physician in the facility. She needs to be out of bed daily and to walk. <Edie Sparks - 12/19/21 09:18> Objective Vital signs: Temp Pulse Resp BP Pulse Ox 98.3 F 66 18 115/56 L 94 L 12/19/21 09:04 12/19/21 09:04 12/19/21 09:04 12/19/21 09:04 12/19/21 09:04 <Harry Cotter - 12/26/21 18:08> Temp Pulse Resp BP Pulse Ox 98.4 F 72 19 115/49 L 93 L 12/19/21 04:00 12/19/21 04:00 12/19/21 04:00 12/19/21 04:00 12/19/21 04:00 <Edie Sparks - 12/19/21 09:18> Narrative: Exam Vital signs and Labs for Last 24 Hours: Temp Pulse Resp BP Pulse Ox 98.4 F 72 19 115/49 L 93 L 12/19/21 04:00 12/19/21 04:00 12/19/21 04:00 12/19/21 04:00 12/19/21 04:00 Laboratory Results - last 24 hr 12/18/21 11:01: POC Glucose 157 H 12/18/21 15:5
[2021-12-19 09:04] VITALS: BP 115/56; PULSE 66; RESP 18; TEMP 36.8; O2SAT 94
== END 2021-12-19 10:26 ==
LOC: ER 15:31 → 2ND 15:52 → OB 20:10
PROVIDERS: Admitting Provider Family Medicine; Emergency Provider Emergency Medicine; Visit Provider Family Medicine
DX: I50.33 Acute on chronic diastolic (congestive) heart failure (principal); E11.9 Type 2 diabetes mellitus without complications; Z79.4 Long term (current) use of insulin; I11.0 Hypertensive heart disease with heart failure; Z95.5 Presence of coronary angioplasty implant and graft; I21.4 Non-ST elevation (NSTEMI) myocardial infarction; I35.0 Nonrheumatic aortic (valve) stenosis; G93.40 Encephalopathy, unspecified; R79.89 Other specified abnormal findings of blood chemistry; Z79.899 Other long term (current) drug therapy; D64.9 Anemia, unspecified; Z74.09 Other reduced mobility; Z20.822 Contact with and (suspected) exposure to COVID-19
CPT/HCPCS: G0378; 36415; 71045; 76705; 80053; 81001; 82140; 82962; 83605; 84484; 85014; 85018; 85025; 87040; 93005; 96375; 99285; C9803; U0003; U0005

== ENCOUNTER 2021-12-21 12:54 | Outpatient (RCR) | payer MEDICARE, OTHER, SELFPAY | END 2022-03-21 15:00 | disposition home or self-care (01) | LOC: PT 12:54 | PROVIDERS: Visit Provider Internal Medicine | DX: I25.10 Atherosclerotic heart disease of native coronary artery without angina pectoris (principal) | CPT/HCPCS: 93798 ==

== ENCOUNTER 2022-01-19 15:15 | Emergency (ER) | payer MEDICARE, OTHER, SELFPAY ==
[2022-01-19 15:16] VITALS: BP 202/67; PULSE 70; RESP 18; TEMP 36.6; O2SAT 98; BMI 40.5
--- NOTE | 2022-01-19 18:06 | PC.NURSE ---
via [facility] called to check on pt at this time, states she was told that pts ammonia level was high per dr. smart office. Spoke with Maia at [facility]
[2022-01-19 18:39] VITALS: BP 188/78; PULSE 78; RESP 16; O2SAT 98
--- NOTE | 2022-01-19 18:53 | XR_ITS ---
PROCEDURE INFORMATION: Exam: XR Chest Exam date and time: 01/19/2022 6:53 PM Age: 81 years old Clinical indication: Cough; Additional info: Productive cough TECHNIQUE: Imaging protocol: XR of the chest. Portable AP upright exam 6:56 p.m. Views: 1 view. COMPARISON: CR XR CHEST PORTABLE 12/17/2021 12:00 PM FINDINGS: Lungs: Slight hypoventilation/low lung volumes. Persistent subsegmental atelectasis in the left lingula. Increased prominence of the lower bronchovascular markings compared with the prior exam, with increased central peribronchial thickening, which could be vascular congestion or bronchitis. No focal consolidation. Pleural spaces: Unremarkable. No significant pleural effusion. No pneumothorax. Heart/Mediastinum: Chronic enlarged cardiac silhouette. Calcified plaques in the aortic arch. Bones/joints: Osteopenia. A chronic right humerus neck fracture deformity unchanged compared with the prior exam.There are spinal degenerative changes, with multilevel disc narrrowing and spondylosis. IMPRESSION: 1. Findings suggest worsening bilateral pulmonary vascular congestion, versus increased bronchitis and interstitial pneumonia, compared with 12/17/2021. 2. No focal consolidation. 3. Persistent subsegmental atelectasis in the left lingula. 4. Cardiomegaly. 5. Additional nonemergency and chronic findings as above.
[2022-01-19 18:57] LABS: Microscopic, Urine URINE MICROSCOPIC (MICROSCOPIC)
[2022-01-19 19:07] LABS: Basophils # 0.1 K/mm3 (0-0.2); Basophils % 1.4 % (0.1-2.0); Eosinophils # 0.1 K/mm3 (0.0-0.4); Eosinophils % 2.2 % (0.1-12.0); Hematocrit 31.4 % (37.0-47.0); Hemoglobin 10.1 g/dL (12.2-16.2); Lymphocytes # 1.7 K/mm3 (0.7-4.5); Lymphocytes % 30.6 % (10-50); Mean Corpuscular HGB Conc 32.2 g/dL (31.8-35.4); Mean Corpuscular Hemoglobin 30.8 pg (27.0-31.2); Mean Corpuscular Volume 95.7 fl (81-99); Mean Platelet Volume 8.2 fl (7.4-10.4); Monocytes # 0.4 K/mm3 (0.1-1.0); Monocytes % 6.8 % (1.7-9.3); Neutrophils # 3.2 K/mm3 (1.8-7.8); Neutrophils % 59.1 % (37.0-80.0); Platelet Count 376 K/mm3 (142-424); Red Blood Count 3.28 M/mm3 (4.20-5.40); Red Cell Distribution Width 17.6 % (11.5-17.5); White Blood Count 5.4 K/mm3 (4.8-10.8)
[2022-01-19 19:10] LABS: Appearance,Urine CLEAR (Clear); Bilirubin,Urine Negative (Negative); Blood, Urine Negative (Negative); Color,Urine YELLOW (Yellow); Glucose,Urine (UA) Negative (Negative); Ketones,Urine Negative (Negative); Leukocyte Esterase,Urine Negative (Negative); Nitrate,Urine Negative (Negative); Protein,Urine Negative (Negative); Specific Gravity, Urine <= 1.005 (1.005-1.030); Urobilinogen,Urine 0.2 EU/dl (0.2)
--- NOTE | 2022-01-19 19:31 | HMH.EDGENADL ---
ED Disposition Clinical Impression: Acute bronchitis Qualifiers: Bronchitis organism: unspecified organism Qualified Code(s): J20.9 - Acute bronchitis, unspecified Disposition: Home, Self-Care Condition on Discharge: Good Instructions: DI for Acute Bronchitis Additional Instructions: Zithromax as prescribed. Continue breathing treatments as previously. Additional instructions for ACUTE BRONCHITIS: Use Tylenol or Ibuprofen for pain or fever. Rest and plenty of fluids. Return immediately if you have an uncontrollable fever greater than 102 degrees, severe headache or neck stiffness, difficulty breathing or shortness of breath, persistent vomiting, severe sore throat or inability to swallow. See your physician if not improving in 4-5 days. Referrals: Harry Cotter MD [Primary Care Provider] - - Critical Care Critical Care Time: No Attestation: On 01/19/22, the high probability of a clinically significant, sudden or life threatening deterioration of the following system(s) required my full and direct attention, intervention and personal management. The time I documented below is in addition to time spent performing reported procedures but includes the following listed in this critical care notation. Medical Decision Making - Wojciech Inquiry Pt receiving controlled substance: No Vital Signs: 01/19/22 15:16 01/19/22 18:39 Temperature 97.9 F Temperature Source Oral Pulse Rate 78 Pulse Rate [Left Radial] 70 Respiratory Rate 18 16 Blood Pressure 188/78 H Blood Pressure [Left Arm] 202/67 H Blood Pressure Mean 86 Blood Pressure Mean [Left Arm] 112 02 Sat by Pulse Oximetry 98 98 Oxygen Delivery Method Room Air - Lab Data Lab Results 01/19/22 18:15: NT-Pro-B Natriuret Pep 636 H 01/19/22 18:53: Urine Color Yellow, Urine Appearance Clear, Urine pH 5.0, Ur Specific [place] <= 1.005, Urine Protein Negative, Urine Glucose (UA) Negative, Urine Ketones Negative, Urine Blood Negative, Urine Nitrate Negative, Urine Bilirubin Negative, Urine Urobilinogen 0.2, Ur Leukocyte Esterase Negative, Ur Squamous Epith Cells 5-10 01/19/22 18:55: WBC 5.4, RBC 3.28 L, Hgb 10.1 L, Hct 31.4 L, MCV 95.7, MCH 30.8, MCHC 32.2, RDW 17.6 H, Plt Count 376, MPV 8.2, Neut % (Auto) 59.1, Lymph % (Auto) 30.6, Tw[place]gs % (Auto) 6.8, Eos % (Auto) 2.2, Baso % (Auto) 1.4, Neut # (Auto) 3.2, Lymph # (Auto) 1.7, [place] # (Auto) 0.4, Eos # (Auto) 0.1, Baso # (Auto) 0.1 01/19/22 18:55: Sodium 141, Potassium 5.0, Chloride 111 H, Carbon Dioxide 27, Anion Gap 8.0, BUN 21 H, Creatinine 1.10 H, Estimated Creat Clear 67, Estimated GFR 48 L, Est GFR ( Amer) 58 L, Glucose 168 H, Calcium 8.6, Total Bilirubin 0.3, AST 30, ALT 20, Alkaline Phosphatase 151 H, Troponin I < 0.01, Total Protein 6.2 L, Albumin 3.3 L, Globulin 2.9, Albumin/Globulin Ratio 1.1 01/19/22 18:55: Ammonia 34 H Result diagrams: 01/19/22 18:55 01/19/22 18:55 Orders (Tests/Meds): ED MEDICATIONS Generic Name Dose Route Start Last Admin Trade Name Freq PRN Reason Stop Dose Admin Sodium Chloride 10 ml 01/19/22 18:38 Sodium Chloride 0.9% 10ml Flush Syringe IV 02/18/22 18:37 NEEDED PRN Maintain IV Site Discontinued Medications Generic Name Dose Route Start Last Admin Trade Name Freq PRN Reason Stop Dose Admin Azithromycin 500 mg 01/19/22 20:34 01/19/22 20:40 Azithromycin 250mg Tablet PO 01/19/22 20:35 500 mg ONCE ONE Administration ORDERS Category Date Time Status Troponin I Q3H Lab 01/19/22 21:45 Ordered Troponin I Q3H Lab 01/20/22 00:45 Ordered - ECG Data Tracing #1 EKG interpreted by Tuan Gregg MD: Rhythm: sinus Rate: 70 [place]: normal Ectopy: none Conduction: Incomplete right bundle branch block ST Segment Changes: none T Wave Changes: none Q Waves: none No evidence of acute ischemia or injury - Physician Consults Physician Consulted: Odalys Time: 20:30 Reason -: Pt condition Comment/Respon
[2022-01-19 19:33] LABS: Chloride 111 mmol/L (98-107); Sodium 141 mmol/L (136-145)
[2022-01-19 19:36] LABS: Alanine Aminotransferase 20 U/L (12-78); Albumin Level 3.3 g/dl (3.5-5.0); Albumin/Globulin Ratio 1.1 (1.1-1.8); Alkaline Phosphatase 151 U/L (38-126); Aspartate Amino Transferase 30 U/L (14-36); Bilirubin,Total 0.3 mg/dl (0.2-1.3); Blood Urea Nitrogen 21 mg/dl (7-17); Carbon Dioxide 27 mmol/L (22.0-30.0); Creatinine Clearance Estimated 67 mL/min (50-200); Estimated Glomerular Filt Rate 48 ml/min (>60); GFR (African American) 58 ML/MIN (>60); Globulin 2.9 g/dL (1.3-3.2); Total Protein,Serum 6.2 g/dl (6.3-8.2)
[2022-01-19 19:37] LABS: Calcium 8.6 mg/dl (8.4-10.2); Glucose 168 mg/dl (74-100)
[2022-01-19 19:49] LABS: Ammonia 34 umol/L (9-30); Troponin I < 0.01 ng/ml (0.00-0.034)
[2022-01-19 19:58] LABS: NT Pro Brain Natriuretic Pep. 636 pg/mL (0-450)
--- NOTE | 2022-01-19 20:43 | ECG_ITS ---
APPROVED REPORT Exam: Resting ECG HR:70 bpm ECG Measurements Heart Rate 70 AXES WV 186 P -1 QRSd 110 QRS -27 QT 398 T 28 QTc 418 Conclusion SINUS RHYTHM BORDERLINE LEFT AXIS DEVIATION [QRS AXIS < -20] INCOMPLETE RIGHT BUNDLE BRANCH BLOCK [90+ ms QRS DURATION, TERMINAL R IN V1/V2, 40+ ms S IN I/aVL/V4/V5/V6] BORDERLINE ECG UNCONFIRMED REPORT Electronically signed by : John Rosado MD 01/20/2022 12:07:16
[2022-01-19 20:46] VITALS: BP 164/63; PULSE 72; RESP 18; TEMP 36.6; O2SAT 96
--- NOTE | 2022-01-19 20:52 | PC.NURSE ---
attempted to call report. no answer
== END 2022-01-19 20:59 | disposition home or self-care (01) ==
PROVIDERS: Emergency Provider Emergency Medicine; PCP Family Medicine
DX: J20.9 Acute bronchitis, unspecified (principal); I25.10 Atherosclerotic heart disease of native coronary artery without angina pectoris; E11.9 Type 2 diabetes mellitus without complications; K21.9 Gastro-esophageal reflux disease without esophagitis; E78.5 Hyperlipidemia, unspecified; I10 Essential (primary) hypertension; E03.9 Hypothyroidism, unspecified; Z79.899 Other long term (current) drug therapy
CPT/HCPCS: 71045; 80053; 81001; 82140; 83880; 84484; 85025; 93005; 99283

== ENCOUNTER → 2022-01-22 11:09 | Outpatient (CLI) | payer MEDICARE, OTHER, SELFPAY ==
--- NOTE | 2022-01-22 11:14 | XR_ITS ---
FINAL REPORT CLINICAL HISTORY: cough COMPARISON: January 19, 2022 FINDINGS: The heart is mildly enlarged. The mediastinum is within normal limits. Linear opacity in the lung bases is probably due to scarring. There is no pleural effusion. There is no pneumothorax. The bony thorax is intact. IMPRESSION: No acute cardiopulmonary process. Reviewed, Interpreted and Dictated by Nik Russ MD Transcribed by Dariel Pozo Authenticated by Nik Russ MD on 01/22/2022 01:21:06 PM [facility]
== END ==
PROVIDERS: Visit Provider Nurse Practitioner Family
DX: R05.9 Cough, unspecified (principal)
CPT/HCPCS: 71045

== ENCOUNTER 2022-02-26 19:57 | Inpatient (IN) | payer MEDICARE, OTHER, SELFPAY ==
[2022-02-26] VITALS (7 sets, daily range): BP systolic 150–210; BP diastolic 61–81; PULSE 62–87; RESP 13–18; TEMP 36.6–36.7; O2SAT 94–96; BMI 46.5; BMI 37.9
--- NOTE | 2022-02-26 19:58 | CT_ITS ---
PROCEDURE INFORMATION: Exam: CT Head Without Contrast Exam date and time: 02/26/2022 8:16 PM Age: 81 years old Clinical indication: Altered mental status/memory loss; Additional info: AMS TECHNIQUE: Imaging protocol: Computed tomography of the head without contrast. Radiation optimization: All CT scans at this facility use at least one of these dose optimization techniques: automated exposure control; mA and/or kV adjustment per patient size (includes targeted exams where dose is matched to clinical indication); or iterative reconstruction. COMPARISON: CT HEAD/BRAIN WO CON 09/03/2021 4:13 PM FINDINGS: Brain: Remote infarct of right cerebellum. 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 Hypoattenuation in periventricular deep white matter bilaterally. Cerebral ventricles: Mild enlargement of ventricles, sulci and cisterns bilaterally. Paranasal sinuses: Minimal mucosal thickening within the paranasal sinuses. No fluid levels are evident. Mastoid air cells: Visualized mastoid air cells are well aerated. Bones/joints: Unremarkable. No acute fracture. Soft tissues: Unremarkable. Vasculature: Calcification of the carotid siphons. IMPRESSION: 1. No evidence for acute intracranial hemorrhage, midline shift or mass effect. 2. Mild cortical atrophy and chronic periventricular microangiopathy.
--- NOTE | 2022-02-26 19:58 | CT_ITS ---
PROCEDURE INFORMATION: Exam: CT Abdomen And Pelvis Without Contrast Exam date and time: 02/26/2022 8:18 PM Age: 81 years old Clinical indication: Other: AMS TECHNIQUE: Imaging protocol: Computed tomography of the abdomen and pelvis without contrast. Radiation optimization: All CT scans at this facility use at least one of these dose optimization techniques: automated exposure control; mA and/or kV adjustment per patient size (includes targeted exams where dose is matched to clinical indication); or iterative reconstruction. COMPARISON: CT ABDOMEN PELVIS WO CON 07/02/2021 2:24 PM FINDINGS: Lungs: Minimal regions of opacification scarring in the lingula as well as in the right middle lobe. Heart: Calcification of the mitral valve annulus. Coronary artery calcification also again demonstrated. Liver: Normal. No mass. Gallbladder and bile ducts: Multiple gallstones again demonstrated. Pancreas: Normal. No ductal dilation. Spleen: Normal. No splenomegaly. Adrenal glands: Normal. No mass. Kidneys and ureters: Bilateral perinephric stranding. Findings nonspecific and may reflect acute versus chronic inflammatory change. Stomach and bowel: Duodenal diverticulum. Scattered diverticula are demonstrated throughout the colon. Subtle regions of pericolonic fat stranding are demonstrated involving the sigmoid colon. Findings compatible with diverticulitis. Appendix: No evidence of appendicitis. Intraperitoneal space: Unremarkable. No free air. No significant fluid collection. Vasculature: Scattered regions of atherosclerotic vascular calcification within the abdominal aorta and common iliac arteries. 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 Findings stable. Lymph nodes: Unremarkable. No enlarged lymph nodes. Urinary bladder: Unremarkable as visualized. Reproductive: Unremarkable as visualized. Bones/joints: Unremarkable. No acute fracture. Soft tissues: Unremarkable. IMPRESSION: 1. Diverticulosis with superimposed findings compatible with diverticulitis involving the sigmoid colon. 2. Cholelithiasis. Findings stable. 3. Remainder of the findings as described above.
--- NOTE | 2022-02-26 19:59 | ECG_ITS ---
APPROVED REPORT Exam: Resting ECG HR:75 bpm ECG Measurements Heart Rate 75 AXES CA 178 P 10 QRSd 106 QRS -31 QT 405 T 23 QTc 433 Conclusion SINUS RHYTHM LEFT AXIS DEVIATION [QRS AXIS < -30] INCOMPLETE RIGHT BUNDLE BRANCH BLOCK [90+ ms QRS DURATION, TERMINAL R IN V1/V2, 40+ ms S IN I/aVL/V4/V5/V6] ABNORMAL ECG UNCONFIRMED REPORT Electronically signed by : John Rosado MD 02/26/2022 21:30:22
[2022-02-26 20:23] LABS: Coronavirus 19, PCR Not Detected (NotDetected); Influenza A, PCR Not Detected (NotDetected); Influenza B, PCR Not Detected (NotDetected); Microscopic, Urine URINE MICROSCOPIC (MICROSCOPIC)
[2022-02-26 20:26] LABS: Appearance,Urine CLEAR (Clear); Bilirubin,Urine Negative (Negative); Blood, Urine Negative (Negative); Color,Urine YELLOW (Yellow); Glucose,Urine (UA) Negative (Negative); Ketones,Urine Negative (Negative); Leukocyte Esterase,Urine Negative (Negative); Nitrate,Urine Negative (Negative); Occult Blood,Stool Negative (Negative); Protein,Urine Negative (Negative); Urobilinogen,Urine 0.2 EU/dl (0.2)
[2022-02-26 20:33] LABS: Basophils # 0.1 K/mm3 (0-0.2); Eosinophils # 0.1 K/mm3 (0.0-0.4); Hematocrit 36.4 % (37.0-47.0); Hemoglobin 11.9 g/dL (12.2-16.2); Lymphocytes # 1.8 K/mm3 (0.7-4.5); Lymphocytes % 32.7 % (10-50); Mean Corpuscular HGB Conc 32.7 g/dL (31.8-35.4); Mean Corpuscular Hemoglobin 30.7 pg (27.0-31.2); Mean Corpuscular Volume 93.9 fl (81-99); Mean Platelet Volume 8.1 fl (7.4-10.4); Monocytes # 0.5 K/mm3 (0.1-1.0); Monocytes % 8.2 % (1.7-9.3); Neutrophils # 3.1 K/mm3 (1.8-7.8); Neutrophils % 55.1 % (37.0-80.0); Platelet Count 335 K/mm3 (142-424); Red Blood Count 3.88 M/mm3 (4.20-5.40); Red Cell Distribution Width 15.7 % (11.5-17.5); White Blood Count 5.6 K/mm3 (4.8-10.8)
[2022-02-26 20:37] LABS: Chloride 107 mmol/L (98-107); Potassium 4.6 mmoL/L (3.5-5.1); Sodium 144 mmol/L (136-145)
[2022-02-26 20:39] LABS: Amylase 63 U/L (30-110)
--- NOTE | 2022-02-26 20:39 | HMH.EDAMS ---
ED Disposition Clinical Impression: Acute hepatic encephalopathy Disposition: Admitted As Inpatient Condition on Discharge: Fair - Critical Care Critical Care Time: No Attestation: On 02/26/22, the high probability of a clinically significant, sudden or life threatening deterioration of the following system(s) required my full and direct attention, intervention and personal management. The time I documented below is in addition to time spent performing reported procedures but includes the following listed in this critical care notation. Medical Decision Making - Medical Records Medical records reviewed: Yes: I reviewed the patient's medical records. - Wojciech Inquiry Pt receiving controlled substance: No Vital Signs: 02/26/22 20:31 Temperature 97.8 F Temperature Source Rectal Pulse Rate [Apical] 65 Respiratory Rate 18 Blood Pressure [Right Arm] 210/72 H Blood Pressure Mean [Right Arm] 118 Blood Pressure Source [Right Arm] Automatic Cuff Blood Pressure Position [Right Arm] Sitting 02 Sat by Pulse Oximetry 94 L Oxygen Delivery Method Room Air - Lab Data Lab results reviewed: Yes: I reviewed the patient's lab results. Lab Results 02/26/22 20:10: Urine Color Yellow, Urine Appearance Clear, Urine pH 7.0, Ur Specific [place] 1.010, Urine Protein Negative, Urine Glucose (UA) Negative, Urine Ketones Negative, Urine Blood Negative, Urine Nitrate Negative, Urine Bilirubin Negative, Urine Urobilinogen 0.2, Ur Leukocyte Esterase Negative, Urine RBC None, Urine WBC Occasional, Ur Squamous Epith Cells Occasional, Urine Bacteria None 02/26/22 20:10: WBC 5.6, RBC 3.88 L, Hgb 11.9 L, Hct 36.4 L, MCV 93.9, MCH 30.7, MCHC 32.7, RDW 15.7, Plt Count 335, MPV 8.1, Neut % (Auto) 55.1, Lymph % (Auto) 32.7, [place] % (Auto) 8.2, Eos % (Auto) 2.0, Baso % (Auto) 2.0, Neut # (Auto) 3.1, Lymph # (Auto) 1.8, [place] # (Auto) 0.5, Eos # (Auto) 0.1, Baso # (Auto) 0.1, ESR 49 H 02/26/22 20:10: Sodium 144, Potassium 4.6, Chloride 107, Carbon Dioxide 27, Anion Gap 14.6, BUN 22 H, Creatinine 1.10 H, Estimated Creat Clear 35, Estimated GFR 48 L, Est GFR ( Amer) 58 L, Glucose 127 H, Calcium 10.4 H, Total Bilirubin 0.6, AST 53 H, ALT 26, Alkaline Phosphatase 118, Troponin I 0.01, C-Reactive Protein 1.4, Total Protein 7.3, Albumin 4.1, Globulin 3.2, Albumin/Globulin Ratio 1.3, Amylase 63, Lipase 145 02/26/22 20:10: Lactate 1.3 02/26/22 20:10: SARS-CoV-2 (PCR) Not detected, Influenza A Untype (PCR) Not detected, Influenza Type B (PCR) Not detected 02/26/22 20:10: Stool Occult Blood Negative 02/26/22 20:10: Procalcitonin 0.076 02/26/22 20:10: NT-Pro-B Natriuret Pep 611 H 02/26/22 21:38: Ammonia 115 H Result diagrams: 02/26/22 20:10 02/26/22 20:10 Orders (Tests/Meds): ED MEDICATIONS Generic Name Dose Route Start Last Admin Trade Name Freq PRN Reason Stop Dose Admin Sodium Chloride 1,000 mls @ 999 mls/hr 02/26/22 20:15 02/26/22 20:08 Sod Chlor 0.9% 1000ml Bag IV 02/26/22 21:15 999 mls/hr .Q1H1M WILY Administration Lactulose 30 gm 02/27/22 22:17 Lactulose 20gm/30ml Udc PO 02/27/22 22:18 ONCE ONE Discontinued Medications Generic Name Dose Route Start Last Admin Trade Name Freq PRN Reason Stop Dose Admin Lactulose 20 gm 02/26/22 22:24 02/26/22 22:30 Lactulose 20gm/30ml Udc PO 02/26/22 22:25 20 gm QID ONE Administration Ondansetron HCl 4 mg 02/26/22 20:04 02/26/22 20:07 Ondansetron 4mg/2ml Vial IV 02/26/22 20:05 4 mg ONCE ONE Administration ORDERS Category Date Time Status Troponin I Q3H Lab 02/26/22 23:15 Ordered Troponin I Q3H Lab 02/27/22 02:15 Ordered Blood Culture Stat Micro 02/26/22 20:10 Received - CT Data CT Scan: Head, Abdomen, Pelvis Time Received: 22:[address] Reviewed: Yes: I have viewed the radiologist's interpretation Preliminary Findings: Abnormal (see report ) - ECG Data Tracing #1 Normal Sinus Rhythm: Yes Ischemic changes: non-specific ST-T wave holt
[2022-02-26 20:40] LABS: Alanine Aminotransferase 26 U/L (12-78); Albumin Level 4.1 g/dl (3.5-5.0); Albumin/Globulin Ratio 1.3 (1.1-1.8); Alkaline Phosphatase 118 U/L (38-126); Anion Gap 14.6 mEq/L (5-15); Aspartate Amino Transferase 53 U/L (14-36); Bilirubin,Total 0.6 mg/dl (0.2-1.3); Blood Urea Nitrogen 22 mg/dl (7-17); Calcium 10.4 mg/dl (8.4-10.2); Carbon Dioxide 27 mmol/L (22.0-30.0); Creatinine Clearance Estimated 35 mL/min (50-200); Estimated Glomerular Filt Rate 48 ml/min (>60); GFR (African American) 58 ML/MIN (>60); Globulin 3.2 g/dL (1.3-3.2); Glucose 127 mg/dl (74-100); Lipase 145 U/L (23-300); Total Protein,Serum 7.3 g/dl (6.3-8.2)
[2022-02-26 20:41] LABS: Lactic Acid 1.3 mmol/L (0.7-2.1)
[2022-02-26 20:46] LABS: C-Reactive Protein 1.4 mg/L (0-4)
[2022-02-26 20:55] LABS: Troponin I 0.01 ng/ml (0.00-0.034)
[2022-02-26 20:57] LABS: Squamous Epithelial Cell,Urine Occasional #/hpf (0-5); WBC,Urine Occasional #/hpf (0-3)
[2022-02-26 20:58] LABS: Erythrocyte Sedimentation Rate 49 mm/hr (0-30); NT Pro Brain Natriuretic Pep. 611 pg/mL (0-450)
[2022-02-26 21:06] LABS: Procalcitonin 0.076 ng/mL (0.0-2.0)
--- NOTE | 2022-02-26 21:49 | PC.NURSE ---
Patient is resting in bed. Patient is oriented to place. When asked her name she said her name was come on come on.
[2022-02-26 21:58] LABS: Ammonia 115 umol/L (9-30)
--- NOTE | 2022-02-26 22:15 | PC.NURSE ---
Dr. Cotter paged for Dr. Morrow
--- NOTE | 2022-02-26 22:31 | PC.NURSE ---
UPdated daughter on patients condition. Password of Courtney given.
--- NOTE | 2022-02-26 23:27 | PC.NURSE ---
PT ARRIVED TO FLOOR VIA STRETCHER FROM ED W/STAFF @ 1848
[2022-02-27] VITALS (8 sets, daily range): BP systolic 149–194; BP diastolic 61–83; PULSE 60–84; RESP 15–22; TEMP 36.6–36.9; O2SAT 90–95; BMI 37.9; BMI 37.8
[2022-02-27 00:33] LABS: Troponin I 0.01 ng/ml (0.00-0.034)
[2022-02-27 02:41] LABS: Troponin I 0.02 ng/ml (0.00-0.034)
[2022-02-27 06:08] LABS: POC Glucose,Bedside 89 (70-110)
[2022-02-27 06:31] LABS: Basophils # 0.1 K/mm3 (0-0.2); Basophils % 1.6 % (0.1-2.0); Eosinophils # 0.2 K/mm3 (0.0-0.4); Eosinophils % 2.7 % (0.1-12.0); Lymphocytes # 1.8 K/mm3 (0.7-4.5); Lymphocytes % 34.4 % (10-50); Mean Corpuscular HGB Conc 32.9 g/dL (31.8-35.4); Mean Corpuscular Hemoglobin 30.3 pg (27.0-31.2); Mean Corpuscular Volume 92.3 fl (81-99); Mean Platelet Volume 8.1 fl (7.4-10.4); Monocytes # 0.5 K/mm3 (0.1-1.0); Monocytes % 8.7 % (1.7-9.3); Neutrophils # 2.8 K/mm3 (1.8-7.8); Neutrophils % 52.6 % (37.0-80.0); Platelet Count 269 K/mm3 (142-424); Red Blood Count 3.36 M/mm3 (4.20-5.40); Red Cell Distribution Width 15.5 % (11.5-17.5); White Blood Count 5.3 K/mm3 (4.8-10.8)
[2022-02-27 06:48] LABS: Hemoglobin 10.4 g/dL (12.2-16.2)
--- NOTE | 2022-02-27 06:48 | PC.NURSE ---
Pt alert to self. Will sometimes answer yes and no questions and will say her name when asked. Otherwise her speech is inappropriate. Pt has continuously said come on and good morning repeatedly t/o shift. Pt has slept majority of shift but will awaken easily to name. Dillard catheter in place draining bright yellow urine, small blood clots present. Total of 950ml urine output. Call light within reach.
--- NOTE | 2022-02-27 07:11 | P.CONPHA_ITS ---
[facility] Pharmacy VTE Monitoring - Patient Demographics Admission date: 02/27/22 Report Date: 02/27/22 Time: 07:11 Allergies/Adverse Reactions: Patient Allergies Iodinated Contrast Media Allergy (Intermediate, Verified 02/14/22 09:23) naproxen [NAPROXEN] Allergy (Mild, Verified 02/14/22 09:23) Height: 1.65 m Weight: 103.328 kg Patient Problems: Current Active Problems Acute hepatic encephalopathy (Acute) - VTE Risk Labs: VTE Related Lab Results Hgb 10.4 g/dL (12.2-16.2) L D 02/27/22 06:18 Hct 31.0 % (37.0-47.0) L 02/27/22 06:18 Plt Count 269 K/mm3 (142-424) 02/27/22 06:18 BUN 22 mg/dl (7-17) H 02/26/22 20:10 Creatinine 1.10 mg/dl (0.52-1.04) H 02/26/22 20:10 Estimated Creat Clear 35 mL/min (50-200) 02/26/22 20:10 Was VTE Risk Assessment Performed: Yes VTE Score: 6 VTE Risk Level: Moderate Risk Clinical Trial Participant: No - Prophylaxis VTE Prophylaxis Ordered?: Yes Types of VTE Prophylaxis: TEDS Knee High
--- NOTE | 2022-02-27 07:22 | HMH.PHAINT ---
home medication list verified using list from long-term
[2022-02-27 07:31] LABS: Alanine Aminotransferase 20 U/L (12-78); Albumin Level 3.1 g/dl (3.5-5.0); Albumin/Globulin Ratio 1.1 (1.1-1.8); Alkaline Phosphatase 96 U/L (38-126); Anion Gap 7.1 mEq/L (5-15); Aspartate Amino Transferase 44 U/L (14-36); Bilirubin,Indirect 0.3 mg/dL (0.0-0.9); Bilirubin,Total 0.3 mg/dl (0.2-1.3); Bilirubin,Unconjugated 0.5 mg/dL (0.0-1.1); Blood Urea Nitrogen 21 mg/dl (7-17); Calcium 9.1 mg/dl (8.4-10.2); Carbon Dioxide 28 mmol/L (22.0-30.0); Chloride 110 mmol/L (98-107); Creatinine Clearance Estimated 71 mL/min (50-200); Estimated Glomerular Filt Rate 53 ml/min (>60); GFR (African American) 64 ML/MIN (>60); Globulin 2.7 g/dL (1.3-3.2); Glucose 93 mg/dl (74-100); Magnesium 1.6 mg/dl (1.6-2.3); Potassium 4.1 mmoL/L (3.5-5.1); Sodium 141 mmol/L (136-145); Total Protein,Serum 5.8 g/dl (6.3-8.2)
[2022-02-27 08:12] LABS: Ammonia 125 umol/L (9-30)
--- NOTE | 2022-02-27 08:52 | HMH.HP ---
*Admission Date: 02/27/22 <Edie Sparks 02/27/22 09:09> *Chief complaint: Altered mental status <Edie Sparks 02/27/22 09:09> *History of present illness: Ms. Moctezuma is an 81-year-old female resident of [facility] with a history of dementia, prior strokes, diabetes mellitus, congestive heart failure, GI bleed, diverticulosis and urinary tract infections. She was brought to [facility] for evaluation when she was found to have altered mental status. With presentation to the ER patient was found to have elevated ammonia level. She was disoriented and was unable to give history. She spoke repetitive phrases. Per EMS patient was noted to have had nausea and vomiting for the previous week. In the ER she was given 1000 Milliliters of normal saline IV and 2 doses of lactulose.As well as 4 mg of Zofran IV. Laboratory data showed hemoglobin 11.9 hematocrit 36.4. Electrolytes are normal. BUN was 22 with a creatinine of 1.10. Troponin I's were normal x3. Ammonia level was 115. BNP was 611. Patient was thus admitted for treatment for metabolic encephalopathy. This a.m. patient continues to be altered and repeatedly states come on . She does say no to most questions but does not talk and does not assist with exam. She will not open her eyes. <Edie Sparks 02/27/22 09:09> [facility] History Medical History: Reports:: Atherosclerotic Heart Disease, Congestive Heart Failure, Congenital Heart Disease, Coronary Artery Disease, Cerebrovascular Accident, Deep Vein Thrombosis, Depression, Diabetes Mellitus Type 2, Gastroesophageal Reflux Disease(GERD), Gastrointestinal Bleed, Hyperlipidemia, Hypertension, Myocardial Infarction, Renal Insufficiency, Urinary Tract Infection Denies:: Cancer, Diabetes Mellitus Type 1, Internal Pacemaker, MRSA, Seizures <Edie Sparks 02/27/22 09:09> *Have you ever received a pneumonia vaccine?: Yes <Edie Sparks 02/27/22 09:09> *Have you received a flu vaccine this season?: Yes <Edie Sparks 02/27/22 09:09> Other Medical History: Reports: Anemia, Arthritis, Hypothyroidism, Thyroid Disease <Edie Sparks 02/27/22 09:09> Comment:: Metabolic encephalopathy <Edie Sparks 02/27/22 09:09> Other Surgeries: Yes: Appendectomy, Cardiac Catheterization, Cholecystectomy, Colonoscopy, Coronary Stent, EGD, Hernia Repair, Hysterectomy-Total, Skin Cancer Excision, Other. No: Pacemaker <ClareEdie 02/27/22 09:09> Amputation: No <Edie Sparks 02/27/22 09:09> Fractures: Yes (L humerus, R humerus) <Edie Sparks 02/27/22 09:09> - *Social History Smoking Status: Unknown if ever smoked <Edie Sparks 02/27/22 09:09> Alcohol Intake: never <Edie Sparks 02/27/22 09:09> Alcohol Intake Frequency:: other <SparksEdie 02/27/22 09:09> Substance Use Type: denies use <Tiffany Sparkshy 02/27/22 09:09> *Occupational Status:: disabled <ClareEdie 02/27/22 09:09> Housing: fpc <Edie Sparks 02/27/22 09:09> Household Members: none <Edie Sparks 02/27/22 09:09> *Travel in the last 8 weeks: None <ClareEdie 02/27/22 09:09> - Psychiatric History Pschychiatric History:: Reports:: Anxiety, Depression <Edie Sparks 02/27/22 09:09> Family Hx:: Coronary Artery Disease <Edie Sparks 02/27/22 09:09> Review of Systems - Review of Systems Patient says no to most questions with review of systems. Information obtained from previous documentation. <SparksEdie 02/27/22 09:09> - *Neurologic Denies headache(s), Denies seizure-like activity <SparksEdie 02/27/22 09:09> Meds Home Medications Medication Instructions Recorded Confirmed Type cyanocobalamin (vitamin B-12) 1,000 mcg PO DAILY 02/10/18 02/26/22 History 1,000 mcg tablet pravastatin 80 mg tablet 80 mg PO HS 02/10/18 02/26/22 History Calcium Carbonate/Vitamin D3 800 mg PO DAILY 02/05/21 02/26/22 History [Calcium 600-Vit D3 800 Tablet] carvediloL [
--- NOTE | 2022-02-27 09:43 | SW/DCPLANNER ---
Addendum entered by Kimber Browning 03/01/22 09:19: This patient will return to [facility] today. COVID swab has been collected: negative. I will fax all patient information this AM. Original Note: This patient currently resides at [facility]. I spoke with Shikha from [facility]: patient is currently [facility] level of care. I will fax updates to Shikha w/ [facility] and continue to keep her updated.
--- NOTE | 2022-02-27 14:05 | US_ITS ---
PROCEDURE INFORMATION: Exam: US Abdomen, Limited; Right Upper Quadrant Exam date and time: 02/27/2022 4:08 PM Age: 81 years old Clinical indication: Abdominal pain; Localized; Right upper quadrant (ruq); Additional info: Look at portal vein TECHNIQUE: Imaging protocol: US abdomen. Real time ultrasound with image documentation. Limited exam focused on the right upper quadrant. COMPARISON: US ABDOMEN LIMITED 10/20/2019 8:47 AM FINDINGS: Liver: Increased echogenicity within the liver compatible with hepatic steatosis. 1.2 cm cyst located within the liver. Gallbladder: Gallbladder anechoic. Normal wall thickness. Cholelithiasis. Biliary ducts: Common bile duct normal size. Pancreas: Pancreas incompletely visualized. Secondary to gas-filled bowel loops. No evidence of pancreatic ductal dilatation. Right kidney: 9.2 cm in length by 5 cm in AP dimensions by 7.5 cm transversely. No evidence of hydronephrosis or perinephric fluid. Spleen: The spleen was not evaluated. Recent CT examination dated 02/26/2022 demonstrated no evidence of splenomegaly. Portal venous: There is no evidence of dilatation of the portal vein. It measures 9 mm in maximum dimensions. Persistent low velocity. Hepatopetal flow demonstrated within the portal vein. Other findings: Study limited secondary to patient's body habitus and inability to fully cooperate is. IMPRESSION: 1. No evidence of dilatation or increase in velocity of portal venous flow. 2. No findings to suggest portal hypertension. 3. Findings compatible with hepatic steatosis.
[2022-02-27 16:55] LABS: POC Glucose,Bedside 132 (70-110)
[2022-02-27 21:34] LABS: POC Glucose,Bedside 219 (70-110)
[2022-02-28] VITALS (8 sets, daily range): BP systolic 152–178; BP diastolic 61–85; PULSE 64–80; RESP 16–20; TEMP 36.7–36.8; O2SAT 92–97; BMI 37.8
[2022-02-28 06:02] LABS: POC Glucose,Bedside 145 (70-110)
--- NOTE | 2022-02-28 06:14 | PC.NURSE ---
Pt is much more alert. Pt is able to carry conversation and only rambles off inappropriate words occasionally. Pt has had multiple large BMs during shift. Dillard catheter in place draining pale yellow urine. Pt c/o back ache 1x t/o night. Pt was administered 650mg tylenol and was repositioned. Call light within reach.
[2022-02-28 06:55] LABS: Iron 53 ug/dL (37-170)
[2022-02-28 07:04] LABS: Total Iron Binding Capacity 312 ug/dL (265-497)
[2022-02-28 07:31] LABS: Ferritin 17.5 ng/ml (11.1-264)
--- NOTE | 2022-02-28 08:17 | HMH.ACPN2 ---
<Meg Lopez - Last Filed: 02/28/22 08:17> Internal Medicine - PN: Subj *Date: 02/28/22 *Time: 08:17 Interval history: Patient states she is feeling about the same today. She continues with diarrhea but no vomiting. She did eat a few bites of a muffin for breakfast. She did not rest well last night. She denies any pain. Exam Vital signs and Labs for Last 24 Hours: Temp Pulse Resp BP Pulse Ox 98.3 F 67 19 155/65 H 97 02/28/22 07:56 02/28/22 07:56 02/28/22 07:56 02/28/22 07:56 02/28/22 07:56 Laboratory Results - last 24 hr 02/27/22 06:18: Sodium 141, Potassium 4.1, Chloride 110 H, Carbon Dioxide 28, Anion Gap 7.1, BUN 21 H, Creatinine 1.00, Estimated Creat Clear 71, Estimated GFR 53 L, Est GFR ( Amer) 64, Glucose 93 D, Calcium 9.1, Magnesium 1.6, Total Bilirubin 0.3, Direct Bilirubin 0.0, Conjugated Bilirubin 0.0, Indirect Bilirubin 0.3, Unconjugated Bilirubin 0.5, AST 44 H, ALT 20, Alkaline Phosphatase 96, Total Protein 5.8 L, Albumin 3.1 L D, Globulin 2.7, Albumin/Globulin Ratio 1.1 02/27/22 06:18: Ammonia 125 H 02/27/22 16:39: POC Glucose 132 H 02/27/22 19:58: POC Glucose 219 H 02/28/22 05:49: POC Glucose 145 H 02/28/22 05:55: Iron 53, TIBC 312, Iron Saturation 16.44640, Ferritin 17.5 I & O for Last 24 hours: Intake & Output 02/25/22 02/26/22 02/27/22 02/28/22 11:59 11:59 11:59 11:59 Intake Total 1649 / 1649 2781 / 2781 Output Total 950 / 950 2600 / 2600 Balance 699 / 699 181 / 181 Weight 227 lb 1.218 oz 227 lb 1.218 oz Radiology Reports for the Last 24 Hours: Abdominal U/S 1. No evidence of dilatation or increase in velocity of portal venous flow. 2. No findings to suggest portal hypertension. 3. Findings compatible with hepatic steatosis. - Constitutional no acute distress - *Routine Respiratory Exam Present: CTA bilaterally - *Routine Cardiovascular Exam Present: RRR - *Routine Abdominal Exam Present: soft, normoactive bowel sounds. Absent: tenderness - *Routine Extremities Exam Present: edema (Bilateral lower extremities). Absent: cyanosis, clubbing - *Routine Skin Exam Present: warm. Absent: rash - *Routine Neurological Exam Present: alert, oriented X3 Assessment and Plan (1) Acute hepatic encephalopathy Status: Acute Category: Medical Code(s): K72.00 - Acute and subacute hepatic failure without coma (2) Altered mental status Status: Acute Category: Medical Code(s): R41.82 - Altered mental status, unspecified (3) Increased ammonia level Status: Acute Category: Medical Code(s): R79.89 - Other specified abnormal findings of blood chemistry (4) Bilateral lower extremity edema Status: Acute Category: Medical Code(s): R60.0 - Localized edema (5) Diabetes mellitus Status: Chronic Qualifiers: Diabetes mellitus type: type 1 Diabetes mellitus complication status: with other specified complication Qualified Code(s): E10.69 - Type 1 diabetes mellitus with other specified complication Category: Medical Code(s): E11.9 - Type 2 diabetes mellitus without complications (6) History of CVA (cerebrovascular accident) Status: Chronic Category: Medical Code(s): Z86.73 - Personal history of transient ischemic attack (TIA), and cerebral infarction without residual deficits (7) Hypertension Status: Chronic Qualifiers: Hypertension type: primary hypertension Qualified Code(s): I10 - Essential (primary) hypertension Category: Medical Code(s): I10 - Essential (primary) hypertension (8) Hypothyroid Status: Chronic Qualifiers: Hypothyroidism type: unspecified Qualified Code(s): E03.9 - Hypothyroidism, unspecified Category: Medical Code(s): E03.9 - Hypothyroidism, unspecified (9) Impaired mobility Status: Chronic Category: Medical Code(s): Z74.09 - Other reduced mobility (10) Fatty liver Status: Acute Category: Medical Code(s): K76.0 - Fatty (change of) liver, n
[2022-02-28 11:43] LABS: POC Glucose,Bedside 243 (70-110)
[2022-02-28 13:54] LABS: Ammonia 60 umol/L (9-30)
--- NOTE | 2022-02-28 14:44 | DIET.NUTRFU ---
Meal intake is better today 75-100%, no supplements needed at this time.
[2022-02-28 16:07] LABS: Hemoglobin A1C 7.1 % (4.0-6.0)
[2022-02-28 16:45] LABS: POC Glucose,Bedside 242 (70-110)
--- NOTE | 2022-02-28 17:54 | PC.NURSE ---
VS stable. Patient remained alert and oriented during shift. Multiple bowel movements noted. Patient remained on room air and no complaints noted.
[2022-02-28 22:07] LABS: POC Glucose,Bedside 229 (70-110)
[2022-03-01] VITALS: BP 147/49; PULSE 70; PULSE 73; RESP 16; TEMP 37; O2SAT 93
[2022-03-01 04:00] VITALS: BP 156/58; PULSE 65; PULSE 72; RESP 16; TEMP 37; O2SAT 93
[2022-03-01 05:00] VITALS: BMI 39.9
[2022-03-01 06:53] LABS: POC Glucose,Bedside 208 (70-110)
[2022-03-01 08:00] VITALS: BP 151/66; PULSE 64; RESP 16; TEMP 36.7; O2SAT 96
--- NOTE | 2022-03-01 08:35 | HMH.ACPN2 ---
<Meg Lopez - Last Filed: 03/01/22 08:35> Internal Medicine - PN: Subj *Date: 03/01/22 *Time: 08:35 Interval history: Patient is feeling better today. She denies any pain other than in her right wrist. She still didn't sleep last night. She did eat. Her diarrhea has slowed. Exam Vital signs and Labs for Last 24 Hours: Temp Pulse Resp BP Pulse Ox 98.1 F 64 16 151/66 H 96 03/01/22 08:00 03/01/22 08:00 03/01/22 08:00 03/01/22 08:00 03/01/22 08:00 Laboratory Results - last 24 hr 02/28/22 11:30: POC Glucose 243 H 02/28/22 13:30: Hemoglobin A1c 7.1 H 02/28/22 13:30: Ammonia 60 H 02/28/22 16:17: POC Glucose 242 H 02/28/22 21:42: POC Glucose 229 H 03/01/22 06:38: POC Glucose 208 H I & O for Last 24 hours: Intake & Output 02/26/22 02/27/22 02/28/22 03/01/22 11:59 11:59 11:59 11:59 Intake Total 1649 / 1649 2781 / 2781 840 / 840 Output Total 950 / 950 3425 / 3425 2550 / 2550 Balance 699 / 699 -644 / -644 -1710 / -1710 Weight 227 lb 1.218 oz 227 lb 1.218 oz 240 lb Microbiology Reports for the Last 24 Hours: Microbiology 02/26/22 20:10 Blood Blood Culture - Preliminary NO GROWTH AFTER 48 HOURS 02/26/22 20:10 Blood Blood Culture - Preliminary NO GROWTH AFTER 48 HOURS - Constitutional no acute distress - *Routine Respiratory Exam Present: CTA bilaterally - *Routine Cardiovascular Exam Present: RRR - *Routine Abdominal Exam Present: soft, normoactive bowel sounds. Absent: tenderness - *Routine Extremities Exam Present: edema. Absent: cyanosis, clubbing - *Routine Skin Exam Present: warm. Absent: rash - *Routine Neurological Exam Present: alert, oriented X3 Assessment and Plan (1) Acute hepatic encephalopathy Status: Acute Category: Medical Code(s): K72.00 - Acute and subacute hepatic failure without coma (2) Altered mental status Status: Acute Category: Medical Code(s): R41.82 - Altered mental status, unspecified (3) Increased ammonia level Status: Acute Category: Medical Code(s): R79.89 - Other specified abnormal findings of blood chemistry (4) Bilateral lower extremity edema Status: Acute Category: Medical Code(s): R60.0 - Localized edema (5) Diabetes mellitus Status: Chronic Qualifiers: Diabetes mellitus type: type 1 Diabetes mellitus complication status: with other specified complication Qualified Code(s): E10.69 - Type 1 diabetes mellitus with other specified complication Category: Medical Code(s): E11.9 - Type 2 diabetes mellitus without complications (6) History of CVA (cerebrovascular accident) Status: Chronic Category: Medical Code(s): Z86.73 - Personal history of transient ischemic attack (TIA), and cerebral infarction without residual deficits (7) Hypertension Status: Chronic Qualifiers: Hypertension type: primary hypertension Qualified Code(s): I10 - Essential (primary) hypertension Category: Medical Code(s): I10 - Essential (primary) hypertension (8) Hypothyroid Status: Chronic Qualifiers: Hypothyroidism type: unspecified Qualified Code(s): E03.9 - Hypothyroidism, unspecified Category: Medical Code(s): E03.9 - Hypothyroidism, unspecified (9) Impaired mobility Status: Chronic Category: Medical Code(s): Z74.09 - Other reduced mobility (10) NAFLD (nonalcoholic fatty liver disease) Status: Acute Category: Medical Code(s): K76.0 - Fatty (change of) liver, not elsewhere classified - Assessment and plan all Dx Assessment and Plan for all problems:: Ammonia level is improving. Mental status has improved. Will discuss further care with Dr. Cotter. <Harry Cotter - Last Filed: 03/23/22 17:44> Internal Medicine - PN: Subj *Date: 03/23/22 *Time: 17:43 Exam Vital signs and Labs for Last 24 Hours: Temp Pulse Resp BP Pulse Ox 98.1 F 64 16 151/66 H 96
--- NOTE | 2022-03-01 08:41 | HMH.DCSUM ---
General - General Admission date:: 02/26/22 <CyndeeHarry esparza - 03/28/22 22:28> 02/26/22 <Meg Lopez - 03/01/22 08:46> Discharge date: 03/01/22 <Meg Lopez - 03/01/22 08:46> HPI HPI: Ms. Moctezuma is an 81-year-old female resident of [facility] with a history of dementia, prior strokes, diabetes mellitus, congestive heart failure, GI bleed, diverticulosis and urinary tract infections. She was brought to [facility] for evaluation when she was found to have altered mental status. With presentation to the ER patient was found to have elevated ammonia level. She was disoriented and was unable to give history. She spoke repetitive phrases. Per EMS patient was noted to have had nausea and vomiting for the previous week. In the ER she was given 1000 Milliliters of normal saline IV and 2 doses of lactulose.As well as 4 mg of Zofran IV. Laboratory data showed hemoglobin 11.9 hematocrit 36.4. Electrolytes are normal. BUN was 22 with a creatinine of 1.10. Troponin I's were normal x3. Ammonia level was 115. BNP was 611. Patient was thus admitted for treatment for metabolic encephalopathy. This a.m. patient continues to be altered and repeatedly states come on . She does say no to most questions but does not talk and does not assist with exam. She will not open her eyes. <Meg Lopez - 03/01/22 08:46> Hospital Course Hospital Course: The patient was admitted and started on lactulose for her elevated ammonia level and IV fluids as well. She was placed on sliding scale insulin. The etiology of her elevated ammonia levels remained unclear. Previous liver evaluations had shown no evidence of liver disease, yet she returned to the ER with elevated ammonia levels and hepatic encephalopathy. A liver ultrasound was ordered including a Doppler of the portal vein. It did show hepatic steatosis, which explained the elevated ammonia and hepatic encephalopathy. She was started on Xifaxan. She did have diarrhea with the lactulose, but her mentation began improving and her ammonia level decreased. By 03/01/2022 her mentation had normalized. Her blood cultureds showed no growth and she was stable to be discharged back to the residential on continued Xifaxan. <Meg Lopez - 03/01/22 08:46> Objective Vital signs: Temp Pulse Resp BP Pulse Ox 98.1 F 64 16 151/66 H 96 03/01/22 08:00 03/01/22 08:00 03/01/22 08:00 03/01/22 08:00 03/01/22 08:00 <Harry Cotter - 03/28/22 22:28> Temp Pulse Resp BP Pulse Ox 98.1 F 64 16 151/66 H 96 03/01/22 08:00 03/01/22 08:00 03/01/22 08:00 03/01/22 08:00 03/01/22 08:00 <JessicaMeg - 03/01/22 08:46> Narrative: - Constitutional no acute distress - *Routine Respiratory Exam Present: CTA bilaterally - *Routine Cardiovascular Exam Present: RRR - *Routine Abdominal Exam Present: soft, normoactive bowel sounds. Absent: tenderness - *Routine Extremities Exam Present: edema. Absent: cyanosis, clubbing - *Routine Skin Exam Present: warm. Absent: rash - *Routine Neurological Exam Present: alert, oriented X3 <JessicaMeg - 03/01/22 08:46> Results Labs on day of discharge: Labs from last 24 hours 03/01/22 02/28/22 02/28/22 06:38 21:42 16:17 POC Glucose 208 H 229 H 242 H Hemoglobin A1c Ammonia 02/28/22 02/28/22 02/28/22 13:30 13:30 11:30 POC Glucose 243 H Hemoglobin A1c 7.1 H Ammonia 60 H Preliminary micro results at discharge 02/26/22 20:10 Blood Culture - Preliminary Blood NO GROWTH AFTER 48 HOURS 02/26/22 20:10 Blood Culture - Preliminary Blood NO GROWTH AFTER 48 HOURS <Meg Lopez - 03/01/22 08:46> DS: Diagnosis - Discharge Diagnosis (1) Acute hepatic encephalopathy Status: Acute (2) Altered mental status Status: Acute (3) Increased ammonia level Status: Acute (4) Bilateral l
[2022-03-01 08:46] LABS: Coronavirus 19, PCR Not Detected (NotDetected); Influenza A, PCR Not Detected (NotDetected); Influenza B, PCR Not Detected (NotDetected)
--- NOTE | 2022-03-01 10:57 | PC.NURSE ---
Called report to [facility] to YANDY Peña. Answered all questions.
--- NOTE | 2022-03-02 11:28 | CARE MANAGER ---
Contacted patient's son, Jayson. He states he spoke with his mom this morning and she is doing well. He denies any questions or concerns.
[2022-03-03 21:13] LABS: Hep A Ab, IgM NEGATIVE; Hepatitis B Core Antibody IgM NEGATIVE; Hepatitis B Surface Antigen NEGATIVE; Hepatitis C Antibody <0.1
== END 2022-03-01 12:44 | disposition home or self-care (01) | DRG 443 ==
LOC: ER 22:26 → 2ND 22:56
PROVIDERS: Admitting Provider Family Medicine; Emergency Provider Emergency Medicine; PCP Family Medicine; Visit Provider Family Medicine
DX: K72.90 Hepatic failure, unspecified without coma (principal); I25.10 Atherosclerotic heart disease of native coronary artery without angina pectoris; I11.0 Hypertensive heart disease with heart failure; I50.9 Heart failure, unspecified; Z86.73 Personal history of transient ischemic attack (TIA), and cerebral infarction without residual deficits; E03.9 Hypothyroidism, unspecified; M19.90 Unspecified osteoarthritis, unspecified site; Z85.828 Personal history of other malignant neoplasm of skin; E11.9 Type 2 diabetes mellitus without complications; F03.90 Unspecified dementia, unspecified severity, without behavioral disturbance, psychotic disturbance, mood disturbance, and anxiety; K76.0 Fatty (change of) liver, not elsewhere classified; Z86.718 Personal history of other venous thrombosis and embolism
CPT/HCPCS: 36415; 51702; 70450; 74176; 80053; 80074; 80076; 81001; 82140; 82150; 82272; 82728; 82962; 83036; 83540; 83550; 83605; 83690; 83735; 83880; 84145; 84484; 85025; 85651; 86140; 87040; 93005; 93798; 93975; 96375; 99285; C9803; G0328; J2405; U0003; U0005

== ENCOUNTER 2022-03-13 12:29 | Emergency (ER) | payer MEDICARE, OTHER, SELFPAY ==
[2022-03-13 12:30] VITALS: BP 182/87; PULSE 66; RESP 18; TEMP 36.4; O2SAT 97; BMI 37.8
--- NOTE | 2022-03-13 12:31 | ECG_ITS ---
APPROVED REPORT Exam: Resting ECG HR:63 bpm ECG Measurements Heart Rate 63 AXES SD 194 P -14 QRSd 106 QRS -26 QT 447 T 5 QTc 455 Conclusion SINUS RHYTHM BORDERLINE LEFT AXIS DEVIATION [QRS AXIS < -20] BORDERLINE ECG UNCONFIRMED REPORT Electronically signed by : John Rosado MD 03/16/2022 18:07:20
--- NOTE | 2022-03-13 12:32 | HMH.EDNVD ---
ED Disposition Clinical Impression: Non-intractable vomiting Disposition: Home, Self-Care Condition on Discharge: Good Instructions: Nausea and Vomiting-Adult Additional Instructions: follow up PCP, return for worse Prescriptions: Ondansetron [Zofran 4mg ODT] 4 mg PO TIDP PRN #15 tab PRN Reason: Nausea And Vomiting Transmission [facility] [employer] Referrals: Jewel Morrow MD [Primary Care Provider] - - Critical Care Critical Care Time: No Attestation: On , the high probability of a clinically significant, sudden or life threatening deterioration of the following system(s) required my full and direct attention, intervention and personal management. The time I documented below is in addition to time spent performing reported procedures but includes the following listed in this critical care notation. Medical Decision Making - Medical Records Medical records reviewed: Yes: I reviewed the patient's medical records. - Wojciech Inquiry Pt receiving controlled substance: No Vital Signs: 03/13/22 12:30 03/13/22 13:53 03/13/22 14:01 Temperature 97.6 F Temperature Source Oral Pulse Rate 68 65 Pulse Rate [Left Radial] 66 Respiratory Rate 18 Blood Pressure 156/62 H 160/52 H Blood Pressure [Right Arm] 182/87 H Blood Pressure Mean 93 88 Blood Pressure Mean [Right Arm] 118 Blood Pressure Source [Right Arm] Automatic Cuff Blood Pressure Position [Right Arm] Sitting 02 Sat by Pulse Oximetry 97 98 95 Oxygen Delivery Method Room Air Room Air 03/13/22 14:31 Temperature Temperature Source Pulse Rate 70 Pulse Rate [Left Radial] Respiratory Rate Blood Pressure 174/67 H Blood Pressure [Right Arm] Blood Pressure Mean 92 Blood Pressure Mean [Right Arm] Blood Pressure Source [Right Arm] Blood Pressure Position [Right Arm] 02 Sat by Pulse Oximetry 96 Oxygen Delivery Method Room Air - Lab Data Lab Results 03/13/22 13:20: WBC 6.7, RBC 3.66 L, Hgb 11.3 L, Hct 34.0 L, MCV 92.7, MCH 30.8, MCHC 33.2, RDW 15.0, Plt Count 339, MPV 8.2, Neut % (Auto) 69.3, Lymph % (Auto) 22.3, [place] % (Auto) 5.0, Eos % (Auto) 1.5, Baso % (Auto) 1.9, Neut # (Auto) 4.7, Lymph # (Auto) 1.5, [place] # (Auto) 0.3, Eos # (Auto) 0.1, Baso # (Auto) 0.1 03/13/22 13:20: Sodium 143, Potassium 4.5, Chloride 107, Carbon Dioxide 28, Anion Gap 12.5, BUN 23 H, Creatinine 1.00, Estimated Creat Clear 68, Estimated GFR 53 L, Est GFR ( Amer) 64, Glucose 191 H, Calcium 9.8, Total Bilirubin 0.4, AST 35, ALT 24, Alkaline Phosphatase 154 H, Total Protein 7.1, Albumin 4.0, Globulin 3.1, Albumin/Globulin Ratio 1.3 Result diagrams: 03/13/22 13:20 03/13/22 13:20 Orders (Tests/Meds): ED MEDICATIONS Generic Name Dose Route Start Last Admin Trade Name Freq PRN Reason Stop Dose Admin Sodium Chloride 500 mls @ 999 mls/hr 03/13/22 14:45 Sod Chlor 0.9% 1000ml Bag IV 03/13/22 15:15 .Q31M WILY Discontinued Medications Generic Name Dose Route Start Last Admin Trade Name Freq PRN Reason Stop Dose Admin Ondansetron HCl 4 mg 03/13/22 12:31 03/13/22 13:02 Ondansetron 4mg/2ml Vial IV 03/13/22 12:32 4 mg ONCE ONE Administration ORDERS Category Date Time Status ECG Request by /Nse Stat Y 03/13/22 12:31 Ordered - ECG Data Tracing #1 I reviewed this ECG and interpreted as documented below: ekg by me nsr, borderline lad, no st elev - Physician Consults Time: 14:40 (discussed with Dr Cotter PCP and family is requesting we give fluids to replace vomitus, then return to [place], return here for worse) - Reevaluation(s) Time: 13:54 (reeval, vss, appears well, no vomit here, says she feels fine, asymptomatic, abd s/nt, no cp) Nausea/Vomiting/Diarrhea HPI - General Chief complaint: Nausea/Vomiting/Diarrhea Stated complaint: VOMITING Time Seen by Provider: 03/13/22 12:32 - History of Present Illness HPI Narrative: 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
--- NOTE | 2022-03-13 13:03 | PC.NURSE ---
CAlled registration to check for family for pt, no family present at this time. Updated the pt
[2022-03-13 13:34] LABS: Basophils # 0.1 K/mm3 (0-0.2); Basophils % 1.9 % (0.1-2.0); Eosinophils # 0.1 K/mm3 (0.0-0.4); Eosinophils % 1.5 % (0.1-12.0); Hemoglobin 11.3 g/dL (12.2-16.2); Lymphocytes # 1.5 K/mm3 (0.7-4.5); Lymphocytes % 22.3 % (10-50); Mean Corpuscular HGB Conc 33.2 g/dL (31.8-35.4); Mean Corpuscular Hemoglobin 30.8 pg (27.0-31.2); Mean Corpuscular Volume 92.7 fl (81-99); Mean Platelet Volume 8.2 fl (7.4-10.4); Monocytes # 0.3 K/mm3 (0.1-1.0); Neutrophils # 4.7 K/mm3 (1.8-7.8); Neutrophils % 69.3 % (37.0-80.0); Platelet Count 339 K/mm3 (142-424); Red Blood Count 3.66 M/mm3 (4.20-5.40); White Blood Count 6.7 K/mm3 (4.8-10.8)
[2022-03-13 13:37] LABS: Chloride 107 mmol/L (98-107); Sodium 143 mmol/L (136-145)
[2022-03-13 13:38] LABS: Potassium 4.5 mmoL/L (3.5-5.1)
[2022-03-13 13:40] LABS: Alanine Aminotransferase 24 U/L (12-78); Albumin/Globulin Ratio 1.3 (1.1-1.8); Alkaline Phosphatase 154 U/L (38-126); Anion Gap 12.5 mEq/L (5-15); Aspartate Amino Transferase 35 U/L (14-36); Bilirubin,Total 0.4 mg/dl (0.2-1.3); Blood Urea Nitrogen 23 mg/dl (7-17); Carbon Dioxide 28 mmol/L (22.0-30.0); Creatinine Clearance Estimated 68 mL/min (50-200); Estimated Glomerular Filt Rate 53 ml/min (>60); GFR (African American) 64 ML/MIN (>60); Globulin 3.1 g/dL (1.3-3.2); Total Protein,Serum 7.1 g/dl (6.3-8.2)
[2022-03-13 13:41] LABS: Calcium 9.8 mg/dl (8.4-10.2); Glucose 191 mg/dl (74-100)
[2022-03-13 13:53] VITALS: BP 156/62; PULSE 68; O2SAT 98
--- NOTE | 2022-03-13 13:54 | PC.NURSE ---
gave pt warm blanket for comfort
[2022-03-13 14:01] VITALS: BP 160/52; PULSE 65; O2SAT 95
--- NOTE | 2022-03-13 14:21 | PC.NURSE ---
notified [facility] of transport back to [facility], pt family requesting pt be transported by EMS
[2022-03-13 14:31] VITALS: BP 174/67; PULSE 70; O2SAT 96
--- NOTE | 2022-03-13 14:34 | PC.NURSE ---
MARINA HARPER spoke with Dr. Cotter at this time, Dr. Cotter called to speak with MARINA HARPER inquiring about pt.
--- NOTE | 2022-03-13 15:15 | PC.NURSE ---
checked on pt at this time, pt sitting up in wheelchair, pt son in room. Pt given diet ursula mist per her request. Will continue to monitor
--- NOTE | 2022-03-13 15:59 | PC.NURSE ---
report called to Leisa at [facility] at this time.
[2022-03-13 16:27] VITALS: BP 174/67; PULSE 70; RESP 18; TEMP 36.4; O2SAT 96
--- NOTE | 2022-03-13 17:01 | PC.NURSE ---
Due to multiple transfers in the facility [facility] Marily was called by Adan too assist in taking the pt back to [facility].
--- NOTE | 2022-03-13 17:02 | PC.NURSE ---
updated pt family and pt of transport arrangements made with [facility]
--- NOTE | 2022-03-13 17:11 | PC.NURSE ---
[facility] em[facility] called stating they just had an emergency call toned out, states they will call us back as soon as they are available to see if we still need transport
--- NOTE | 2022-03-13 18:35 | PC.NURSE ---
UPdated pt on wait, no ambulance available for transfer at this time due to them being on runs. Also called for a sandwich in the cafeteria.
[2022-03-13 18:36] VITALS: BP 183/85; PULSE 68; O2SAT 99
--- NOTE | 2022-03-13 18:36 | PC.NURSE ---
called for pt a sandwich
== END 2022-03-13 18:45 | disposition home or self-care (01) ==
PROVIDERS: Emergency Provider Emergency Medicine; PCP Emergency Medicine
DX: N39.0 Urinary tract infection, site not specified (principal); R94.31 Abnormal electrocardiogram [ECG] [EKG]; G93.41 Metabolic encephalopathy; R11.2 Nausea with vomiting, unspecified; R19.7 Diarrhea, unspecified; R55 Syncope and collapse; E87.6 Hypokalemia; D64.9 Anemia, unspecified; I11.0 Hypertensive heart disease with heart failure; I50.9 Heart failure, unspecified; I25.10 Atherosclerotic heart disease of native coronary artery without angina pectoris; K21.9 Gastro-esophageal reflux disease without esophagitis; E78.5 Hyperlipidemia, unspecified; E11.9 Type 2 diabetes mellitus without complications; E03.9 Hypothyroidism, unspecified; N28.9 Disorder of kidney and ureter, unspecified; M19.90 Unspecified osteoarthritis, unspecified site; Q24.9 Congenital malformation of heart, unspecified; F32.A Depression, unspecified; F41.9 Anxiety disorder, unspecified; Z79.02 Long term (current) use of antithrombotics/antiplatelets; Z79.4 Long term (current) use of insulin; Z79.51 Long term (current) use of inhaled steroids; Z79.82 Long term (current) use of aspirin; Z79.899 Other long term (current) drug therapy; Z82.49 Family history of ischemic heart disease and other diseases of the circulatory system
CPT/HCPCS: 36415; 80053; 85025; 93005; J2405

== ENCOUNTER 2022-03-14 14:10 | Inpatient (IN) | payer MEDICARE, OTHER, SELFPAY ==
[2022-03-14] VITALS (15 sets, daily range): BP systolic 123–189; BP diastolic 48–96; PULSE 63–76; RESP 16–22; TEMP 36.4–37; O2SAT 96–100; BMI 49.9; BMI 36.8
--- NOTE | 2022-03-14 14:09 | PC.NURSE ---
pt moved from EMS stretcher to ED room 7 stretcher with assist x 4, no complications. Kadie at BS
--- NOTE | 2022-03-14 14:17 | PC.NURSE ---
MARINA HARPER at speaking with patient
--- NOTE | 2022-03-14 14:22 | HMH.EDGENADL ---
ED Disposition Clinical Impression: Hepatic encephalopathy, Rectal bleeding Urinary tract infection Qualifiers: Urinary tract infection type: acute cystitis Hematuria presence: without hematuria Qualified Code(s): N30.00 - Acute cystitis without hematuria Disposition: Admitted As Inpatient Condition on Discharge: Fair Referrals: Jewel Morrow MD [Primary Care Provider] - - Critical Care Critical Care Time: No Attestation: On , the high probability of a clinically significant, sudden or life threatening deterioration of the following system(s) required my full and direct attention, intervention and personal management. The time I documented below is in addition to time spent performing reported procedures but includes the following listed in this critical care notation. Medical Decision Making - Medical Records Medical records reviewed: Yes: I reviewed the patient's medical records. MR Comment: Reviewed emergency department note from yesterday. Reviewed discharge summary from admission 02/27/2020 through 03/01/2022 for hepatic encephalopathy. Started on Xifaxan at that time. - Wojciech Inquiry Pt receiving controlled substance: No Vital Signs: 03/14/22 14:10 03/14/22 14:17 03/14/22 14:32 Temperature 98.3 F 97.6 F Temperature Source Axillary Rectal Pulse Rate 65 Pulse Rate [Left Radial] 63 Respiratory Rate 18 Blood Pressure 171/69 H Blood Pressure [Right Arm] 170/69 H Blood Pressure Mean 103 Blood Pressure Mean [Right Arm] 102 02 Sat by Pulse Oximetry 99 97 Oxygen Delivery Method Room Air 03/14/22 14:41 03/14/22 14:48 03/14/22 15:28 Temperature Temperature Source Pulse Rate 64 63 64 Pulse Rate [Left Radial] Respiratory Rate 20 18 20 Blood Pressure 123/48 L 164/59 H 172/54 H Blood Pressure [Right Arm] Blood Pressure Mean 73 94 98 Blood Pressure Mean [Right Arm] 02 Sat by Pulse Oximetry 98 100 100 Oxygen Delivery Method - Lab Data Lab Results 03/14/22 14:25: Ammonia 132 H 03/14/22 14:25: Sodium 143, Potassium 4.4, Chloride 107, Carbon Dioxide 27, Anion Gap 13.4, BUN 22 H, Creatinine 1.00, Estimated Creat Clear 39, Estimated GFR 53 L, Est GFR ( Amer) 64, Glucose 168 H, Calcium 9.8, Total Bilirubin 0.6, AST 46 H D, ALT 26, Alkaline Phosphatase 127 H, Troponin I 0.01, Total Protein 6.7, Albumin 3.9, Globulin 2.8, Albumin/Globulin Ratio 1.4 03/14/22 14:31: Stool Occult Blood Positive A 03/14/22 14:31: Urine Color Yellow, Urine Appearance Sl cloudy, Urine pH 6.5, Ur Specific [place] 1.010, Urine Protein Negative, Urine Glucose (UA) Negative, Urine Ketones Negative, Urine Blood Trace-i, Urine Nitrate Negative, Urine Bilirubin Negative, Urine Urobilinogen 0.2, Ur Leukocyte Esterase 2+ A, Urine RBC 3-5, Urine WBC 10-20, Ur Squamous Epith Cells None, Urine Bacteria 3+ 03/14/22 15:15: WBC 4.5 L D, RBC 3.38 L, Hgb 10.5 L, Hct 31.8 L, MCV 94.0, MCH 31.1, MCHC 33.0, RDW 15.1, Plt Count 349, MPV 8.2, Neut % (Auto) 51.7, Lymph % (Auto) 36.0, [place] % (Auto) 8.6, Eos % (Auto) 2.1, Baso % (Auto) 1.6, Neut # (Auto) 2.3, Lymph # (Auto) 1.6, [place] # (Auto) 0.4, Eos # (Auto) 0.1, Baso # (Auto) 0.1 Result diagrams: 03/14/22 15:15 03/14/22 14:25 Orders (Tests/Meds): ED MEDICATIONS Generic Name Dose Route Start Last Admin Trade Name Freq PRN Reason Stop Dose Admin Ceftriaxone Sodium 1 gm/ 50 mls @ 100 mls/hr 03/14/22 15:15 03/14/22 15:23 Sodium Chloride IV 03/28/22 15:14 100 mls/hr Q24H WILY Administration Lactulose 20 gm 03/14/22 17:00 Lactulose 20gm/30ml Udc PO 04/13/22 16:59 QID WILY ORDERS Category Date Time Status Troponin I Q3H Lab 03/14/22 17:45 Ordered Troponin I Q3H Lab 03/14/22 20:45 Ordered Urine Culture Stat Micro 03/14/22 14:31 Received - Radiology Data #1 Image(s): Chest Image Reviewed: Yes I have reviewed radiologist's interpretation Procedure(s): XR chest portable Accession Number(s): [id number] cc:
--- NOTE | 2022-03-14 14:32 | XR_ITS ---
FINAL REPORT CLINICAL HISTORY: AMS COMPARISON: January 22, 2022 FINDINGS: A single portable view of the chest was obtained. There is cardiomegaly. The mediastinum is within normal limits. There is improved aeration in the lung bases since the prior exam. There is a presumed chronic fracture in the proximal left humerus. IMPRESSION: There is improved aeration in the lung bases. Reviewed, Interpreted and Dictated by Sang Herzog III, MD Transcribed by Gisel Fleming Authenticated and [facility]
--- NOTE | 2022-03-14 14:33 | PC.NURSE ---
pts son, (POA) called and spoke with YANDY Pantoja
[2022-03-14 14:36] LABS: Microscopic, Urine URINE MICROSCOPIC (MICROSCOPIC)
[2022-03-14 14:39] LABS: Occult Blood,Stool Positive (Negative)
[2022-03-14 14:45] LABS: Appearance,Urine SL CLOUDY (Clear); Bilirubin,Urine Negative (Negative); Blood, Urine TRACE-I (Negative); Color,Urine YELLOW (Yellow); Glucose,Urine (UA) Negative (Negative); Ketones,Urine Negative (Negative); Leukocyte Esterase,Urine 2+ (Negative); Nitrate,Urine Negative (Negative); PH,Urine 6.5 (5.0-8.5); Protein,Urine Negative (Negative); Urobilinogen,Urine 0.2 EU/dl (0.2)
--- NOTE | 2022-03-14 14:45 | ECG_ITS ---
APPROVED REPORT Exam: Resting ECG HR:64 bpm ECG Measurements Heart Rate 64 AXES VA 193 P 7 QRSd 105 QRS -21 QT 438 T -3 QTc 448 Conclusion SINUS RHYTHM BORDERLINE LEFT AXIS DEVIATION [QRS AXIS < -20] INCOMPLETE RIGHT BUNDLE BRANCH BLOCK [90+ ms QRS DURATION, TERMINAL R IN V1/V2, 40+ ms S IN I/aVL/V4/V5/V6] BORDERLINE ECG UNCONFIRMED REPORT Electronically signed by : John Rosado MD 03/16/2022 17:46:12
[2022-03-14 15:04] LABS: Ammonia 132 umol/L (9-30)
[2022-03-14 15:06] LABS: Bacteria,Urine 3+ /lpf
[2022-03-14 15:20] LABS: Chloride 107 mmol/L (98-107); Sodium 143 mmol/L (136-145)
[2022-03-14 15:21] LABS: Potassium 4.4 mmoL/L (3.5-5.1)
--- NOTE | 2022-03-14 15:22 | PC.NURSE ---
blood work delayed due to inability to get blood. u/s guided IV in place and blood obtained.
[2022-03-14 15:23] LABS: Alanine Aminotransferase 26 U/L (12-78); Albumin Level 3.9 g/dl (3.5-5.0); Albumin/Globulin Ratio 1.4 (1.1-1.8); Alkaline Phosphatase 127 U/L (38-126); Anion Gap 13.4 mEq/L (5-15); Aspartate Amino Transferase 46 U/L (14-36); Bilirubin,Total 0.6 mg/dl (0.2-1.3); Blood Urea Nitrogen 22 mg/dl (7-17); Carbon Dioxide 27 mmol/L (22.0-30.0); Creatinine Clearance Estimated 39 mL/min (50-200); Estimated Glomerular Filt Rate 53 ml/min (>60); GFR (African American) 64 ML/MIN (>60); Globulin 2.8 g/dL (1.3-3.2); Total Protein,Serum 6.7 g/dl (6.3-8.2)
[2022-03-14 15:24] LABS: Calcium 9.8 mg/dl (8.4-10.2); Glucose 168 mg/dl (74-100)
[2022-03-14 15:38] LABS: Basophils # 0.1 K/mm3 (0-0.2); Basophils % 1.6 % (0.1-2.0); Eosinophils # 0.1 K/mm3 (0.0-0.4); Eosinophils % 2.1 % (0.1-12.0); Hematocrit 31.8 % (37.0-47.0); Hemoglobin 10.5 g/dL (12.2-16.2); Lymphocytes # 1.6 K/mm3 (0.7-4.5); Mean Corpuscular Hemoglobin 31.1 pg (27.0-31.2); Mean Platelet Volume 8.2 fl (7.4-10.4); Monocytes # 0.4 K/mm3 (0.1-1.0); Monocytes % 8.6 % (1.7-9.3); Neutrophils # 2.3 K/mm3 (1.8-7.8); Neutrophils % 51.7 % (37.0-80.0); Platelet Count 349 K/mm3 (142-424); Red Blood Count 3.38 M/mm3 (4.20-5.40); Red Cell Distribution Width 15.1 % (11.5-17.5); White Blood Count 4.5 K/mm3 (4.8-10.8)
[2022-03-14 15:39] LABS: Troponin I 0.01 ng/ml (0.00-0.034)
--- NOTE | 2022-03-14 16:06 | PC.NURSE ---
paged dr serrato
--- NOTE | 2022-03-14 16:18 | PC.NURSE ---
Covid swab sent to lab
[2022-03-14 16:21] LABS: Coronavirus 19, PCR Not Detected (NotDetected); Influenza A, PCR Not Detected (NotDetected); Influenza B, PCR Not Detected (NotDetected)
--- NOTE | 2022-03-14 17:05 | PC.NURSE ---
called to check status of bed assignment. house states they are working on assignment
--- NOTE | 2022-03-14 17:07 | PC.NURSE ---
pt refusing to drink lactulose
--- NOTE | 2022-03-14 17:11 | HMH.HP ---
*Admission Date: 03/14/22 <JessicaAurelioa 03/14/22 17:27> *Chief complaint: AMS <Meg Lopez 03/14/22 17:27> *History of present illness: Brought in by ambulance from [facility]. prison staff reports that she is sent in for altered mental status and blood-tinged stool. The patient denies any complaint at this time but does not appear to be a reliable historian at this time. She is repeatedly saying come on . However, she does specifically deny being in any pain, having any trouble breathing, being nauseated. She does state that she does not feel very good . Noted to have been seen in this emergency department yesterday for vomiting. The patient is known to me from previous emergency department visits. She has a history of hyperammonemia of uncertain cause which causes her to become encephalopathic. (above as per ER physician) <Meg Lopez 03/14/22 17:27> [facility] History I have reviewed the patient's past medical history: Yes <Meg Lopez 03/14/22 17:27> Medical History: Reports:: Anxiety, Atherosclerotic Heart Disease, Congestive Heart Failure, Congenital Heart Disease, Coronary Artery Disease, Cerebrovascular Accident, Deep Vein Thrombosis, Depression, Diabetes Mellitus Type 2, Gastroesophageal Reflux Disease(GERD), Gastrointestinal Bleed, Hyperlipidemia, Hypertension, Myocardial Infarction, Renal Insufficiency, Urinary Tract Infection Denies:: Cancer, Diabetes Mellitus Type 1, Internal Pacemaker, MRSA, Seizures <Meg Lopez 03/14/22 17:27> *Have you ever received a pneumonia vaccine?: Yes <Meg Lopez 03/14/22 17:27> *Have you received a flu vaccine this season?: Yes <Meg Lopez 03/14/22 17:27> Other Medical History: Reports: Anemia, Arthritis, Hypothyroidism, Thyroid Disease <Meg Lopez 03/14/22 17:27> Other Surgeries: Yes: Appendectomy, Cardiac Catheterization, Cholecystectomy, Colonoscopy, Coronary Stent, EGD, Hernia Repair, Hysterectomy-Total, Skin Cancer Excision, Other. No: Pacemaker <Meg Lopez 03/14/22 17:27> Amputation: No <Meg Lopez 03/14/22 17:27> Fractures: Yes (L humerus, R humerus) <Meg Lopez 03/14/22 17:27> - *Social History Smoking Status: Unknown if ever smoked <Meg Lopez 03/14/22 17:27> Alcohol Intake: never <Meg Lopez 03/14/22 17:27> Alcohol Intake Frequency:: other <Meg Lopez 03/14/22 17:27> Substance Use Type: denies use <Meg Lopez 03/14/22 17:27> *Occupational Status:: disabled <Meg Lopez 03/14/22 17:27> Housing: penitentiary <Meg Lopez 03/14/22 17:27> Household Members: none <Meg Lopez 03/14/22 17:27> *Travel in the last 8 weeks: None <Meg Lopez 03/14/22 17:27> - Psychiatric History Pschychiatric History:: Reports:: Anxiety, Depression <Meg Lopez 03/14/22 17:27> Family Hx:: Coronary Artery Disease <Meg Lopez 03/14/22 17:27> Review of Systems - Constitutional Denies chills, Denies fever(s) <Meg Lopez 03/14/22 17:27> - Eyes Denies blurry vision, Denies double vision <Meg Lopez 03/14/22 17:27> - ENT Denies nasal congestion, Denies sore throat <Meg Lopez 03/14/22 17:27> - *Cardiovascular Denies chest pain, Denies shortness of breath <Meg Lopez 03/14/22 17:27> - *Respiratory Denies cough, Denies shortness of breath <Meg Lopez 03/14/22 17:27> - *Gastrointestinal Denies abdominal pain, Denies loose stools, Denies nausea, Denies vomiting <Meg Lopez 03/14/22 17:27> - *Genitourinary Denies difficulty urinating, Denies painful urination <Meg Lopez 03/14/22 17:27> - *Musculoskeletal Denies joint pain <Meg Lopez 03/14/22 17:27> - *Neurologic Reports weakness, Denies headache(s), Denies dizziness <Meg Lopez - 03/14/22 17:27> Meds Home Medications Medication Instructions Recorded Confirmed Type cyanocobalamin (vitamin B-12) 1,000 mcg PO DAILY 02/10/18 03/14/22 History
--- NOTE | 2022-03-14 17:11 | PC.NURSE ---
spoke with ROMMEL on the phone about POC
--- NOTE | 2022-03-14 17:21 | PC.NURSE ---
Meg Lopez at speaking with patient
--- NOTE | 2022-03-14 17:47 | PC.NURSE ---
ATTEMPTED TO CALL REPORT, NO ANSWER BY NURSE.
--- NOTE | 2022-03-14 17:58 | PC.NURSE ---
REPORT CALLED TO SHRUTI
--- NOTE | 2022-03-14 18:04 | PC.NURSE ---
pt to 2nd floor by stretcher with 2 SRNAs from 2nd floor. all belongings with the patient
--- NOTE | 2022-03-14 18:07 | PC.NURSE ---
pt transported to the floor via stretcher at this time
[2022-03-15 04:00] VITALS: BP 183/76; PULSE 76; RESP 20; TEMP 37.1; O2SAT 94
[2022-03-15 05:00] VITALS: BMI 37.1
--- NOTE | 2022-03-15 05:49 | PC.NURSE ---
pt has rested intermittently, did have some anxiety and yelled out through the first half of the shift, has been turned Q2, remains on room air with O2 sats 94-97%, has been incontinent of urine this shift, no complaints of pain or SOA
[2022-03-15 06:54] LABS: Ammonia 73 umol/L (9-30)
--- NOTE | 2022-03-15 07:23 | P.CONPHA_ITS ---
[facility] Pharmacy VTE Monitoring - Patient Demographics Admission date: 03/14/22 Report Date: 03/15/22 Time: 07:23 Allergies/Adverse Reactions: Patient Allergies Iodinated Contrast Media Allergy (Intermediate, Verified 02/14/22 09:23) naproxen [NAPROXEN] Allergy (Mild, Verified 02/14/22 09:23) Height: 1.65 m Weight: 101.18 kg Patient Problems: Current Active Problems Hypothyroid (Chronic) UTI (urinary tract infection) (Acute) History of CVA (cerebrovascular accident) (Chronic) Hepatic encephalopathy (Acute) Increased ammonia level (Acute) Chronic anemia (Chronic) NAFLD (nonalcoholic fatty liver disease) (Chronic) Rectal bleeding (Acute) HLD (hyperlipidemia) (Chronic) CAD (coronary artery disease) (Chronic) Diabetes mellitus (Chronic) Hypertension (Chronic) - VTE Risk Labs: VTE Related Lab Results Hgb 10.5 g/dL (12.2-16.2) L 03/14/22 15:15 Hct 31.8 % (37.0-47.0) L 03/14/22 15:15 Plt Count 349 K/mm3 (142-424) 03/14/22 15:15 BUN 22 mg/dl (7-17) H 03/14/22 14:25 Creatinine 1.00 mg/dl (0.52-1.04) 03/14/22 14:25 Estimated Creat Clear 39 mL/min (50-200) 03/14/22 14:25 Was VTE Risk Assessment Performed: Yes VTE Score: 3 VTE Risk Level: Low Risk - Prophylaxis VTE Prophylaxis Ordered?: Yes Types of VTE Prophylaxis: TEDS Knee High Location of Applied Device: Bilateral Lower Extremeties
[2022-03-15 08:00] VITALS: BP 161/70; PULSE 75; RESP 16; TEMP 37.1; O2SAT 93
--- NOTE | 2022-03-15 08:26 | HMH.ACPN2 ---
<Meg Lopez - Last Filed: 03/15/22 08:26> Internal Medicine - PN: Subj *Date: 03/15/22 *Time: 08:26 Interval history: Patient is lethargic this morning. She denies any pain. She is not sure if she slept last night. She says she is not hungry this morning. Exam Vital signs and Labs for Last 24 Hours: Temp Pulse Resp BP Pulse Ox 98.7 F 76 20 183/76 H 94 L 03/15/22 04:00 03/15/22 04:00 03/15/22 04:00 03/15/22 04:00 03/15/22 04:00 Laboratory Results - last 24 hr 03/14/22 14:25: Ammonia 132 H 03/14/22 14:25: Sodium 143, Potassium 4.4, Chloride 107, Carbon Dioxide 27, Anion Gap 13.4, BUN 22 H, Creatinine 1.00, Estimated Creat Clear 39, Estimated GFR 53 L, Est GFR ( Amer) 64, Glucose 168 H, Calcium 9.8, Total Bilirubin 0.6, AST 46 H D, ALT 26, Alkaline Phosphatase 127 H, Troponin I 0.01, Total Protein 6.7, Albumin 3.9, Globulin 2.8, Albumin/Globulin Ratio 1.4 03/14/22 14:31: Stool Occult Blood Positive A 03/14/22 14:31: Urine Color Yellow, Urine Appearance Sl cloudy, Urine pH 6.5, Ur Specific [place] 1.010, Urine Protein Negative, Urine Glucose (UA) Negative, Urine Ketones Negative, Urine Blood Trace-i, Urine Nitrate Negative, Urine Bilirubin Negative, Urine Urobilinogen 0.2, Ur Leukocyte Esterase 2+ A, Urine RBC 3-5, Urine WBC 10-20, Ur Squamous Epith Cells None, Urine Bacteria 3+ 03/14/22 15:15: WBC 4.5 L D, RBC 3.38 L, Hgb 10.5 L, Hct 31.8 L, MCV 94.0, MCH 31.1, MCHC 33.0, RDW 15.1, Plt Count 349, MPV 8.2, Neut % (Auto) 51.7, Lymph % (Auto) 36.0, [place] % (Auto) 8.6, Eos % (Auto) 2.1, Baso % (Auto) 1.6, Neut # (Auto) 2.3, Lymph # (Auto) 1.6, [place] # (Auto) 0.4, Eos # (Auto) 0.1, Baso # (Auto) 0.1 03/14/22 16:17: SARS-CoV-2 (PCR) Not detected, Influenza A Untype (PCR) Not detected, Influenza Type B (PCR) Not detected 03/15/22 06:21: Ammonia 73 H I & O for Last 24 hours: Intake & Output 03/12/22 03/13/22 03/14/22 03/15/22 11:59 11:59 11:59 11:59 Intake Total 408 / 408 Balance 408 / 408 Weight 223 lb 1.019 oz Microbiology Reports for the Last 24 Hours: Microbiology 03/14/22 14:31 Urine,Catheterized Urine Culture - Preliminary Gram Negative Rods - Constitutional no acute distress - *Routine Respiratory Exam Present: CTA bilaterally - *Routine Cardiovascular Exam Present: RRR - *Routine Abdominal Exam Present: soft, normoactive bowel sounds. Absent: tenderness - *Routine Extremities Exam Present: edema (bilateral LE's). Absent: cyanosis, clubbing - *Routine Skin Exam Present: warm. Absent: rash - *Routine Neurological Exam Present: altered mental status Assessment and Plan (1) Hepatic encephalopathy Status: Acute Category: Medical Code(s): K72.90 - Hepatic failure, unspecified without coma (2) Rectal bleeding Status: Acute Category: Medical Code(s): K62.5 - Hemorrhage of anus and rectum (3) UTI (urinary tract infection) Status: Acute Qualifiers: Urinary tract infection type: acute cystitis Hematuria presence: without hematuria Qualified Code(s): N30.00 - Acute cystitis without hematuria Category: Medical Code(s): N39.0 - Urinary tract infection, site not specified (4) Increased ammonia level Status: Acute Category: Medical Code(s): R79.89 - Other specified abnormal findings of blood chemistry (5) NAFLD (nonalcoholic fatty liver disease) Status: Chronic Category: Medical Code(s): K76.0 - Fatty (change of) liver, not elsewhere classified (6) CAD (coronary artery disease) Status: Chronic Category: Medical Code(s): I25.10 - Atherosclerotic heart disease of [place] coronary artery without angina pectoris (7) Chronic anemia Status: Chronic Category: Medical Code(s): D64.9 - Anemia, unspecified (8) Diabetes mellitus Status: Chronic Category: Medical Code(s): E11.9 - Type 2 diabetes mellitus without complications (9) HLD (hyperlipidemia) Status: Chronic Category:
[2022-03-15 09:13] LABS: Hematocrit 29.2 % (37.0-47.0); Hemoglobin 9.9 g/dL (12.2-16.2)
--- NOTE | 2022-03-15 09:53 | HMH.PHAINT ---
MEDICATION RECONCILIATION COMPLETED ON PATIENT USING MAR FROM [facility]. -CARMEN STAPLETON, MAGYD
--- NOTE | 2022-03-15 10:10 | SW/DCPLANNER ---
Addendum entered by Kimber Browning 03/16/22 09:29: I have notified Shikha ramirez/ [facility][NOTE 3] that patient will return today. Shikha stated that patient will need a COVID swab prior to returning. Original Note: This patient currently resides at [facility][NOTE 3]. Per Shikha ramirez/ [facility][NOTE 3] patient is ICF level of care. Updated patient information has been faxed to Shikha. Discharge date is unknown at this time.
[2022-03-15 13:35] VITALS: BMI 37.0
--- NOTE | 2022-03-15 15:32 | PC.NURSE ---
since obtaining care of patient she has been resting in bed. has had episodes of yelling out in room. no complaints noted
[2022-03-15 16:00] VITALS: BP 160/72; PULSE 78; RESP 15; TEMP 36.9; O2SAT 96
--- NOTE | 2022-03-15 18:58 | PC.NURSE ---
patient did not want to take her lactulose or FSBS check until after she spoke with her son. Patient talked to son and took lactulose and FSBS which was 321 gave 8 units per MAR and will recheck at 2100
[2022-03-15 19:01] LABS: POC Glucose,Bedside 321 (70-110)
[2022-03-15 20:00] VITALS: BP 174/66; PULSE 72; RESP 18; TEMP 36.8; O2SAT 98
[2022-03-15 22:19] LABS: POC Glucose,Bedside 185 (70-110)
--- NOTE | 2022-03-16 04:26 | PC.NURSE ---
Patient requested FSBS to be checked stating things were blurry a lit bit ago better now Results were 146
[2022-03-16 04:51] LABS: POC Glucose,Bedside 146 (70-110)
[2022-03-16 05:00] VITALS: BMI 37.0
[2022-03-16 07:02] LABS: Basophils % 0.9 % (0.1-2.0); Eosinophils # 0.1 K/mm3 (0.0-0.4); Eosinophils % 2.6 % (0.1-12.0); Hematocrit 30.1 % (37.0-47.0); Hemoglobin 9.7 g/dL (12.2-16.2); Lymphocytes # 2.1 K/mm3 (0.7-4.5); Lymphocytes % 42.4 % (10-50); Mean Corpuscular HGB Conc 32.3 g/dL (31.8-35.4); Mean Corpuscular Hemoglobin 30.7 pg (27.0-31.2); Mean Corpuscular Volume 95.3 fl (81-99); Mean Platelet Volume 8.2 fl (7.4-10.4); Monocytes # 0.4 K/mm3 (0.1-1.0); Monocytes % 8.5 % (1.7-9.3); Neutrophils # 2.2 K/mm3 (1.8-7.8); Neutrophils % 45.7 % (37.0-80.0); Platelet Count 286 K/mm3 (142-424); Red Blood Count 3.16 M/mm3 (4.20-5.40); Red Cell Distribution Width 15.1 % (11.5-17.5); White Blood Count 4.9 K/mm3 (4.8-10.8)
[2022-03-16 07:04] LABS: Chloride 110 mmol/L (98-107); Potassium 3.5 mmoL/L (3.5-5.1); Sodium 142 mmol/L (136-145)
[2022-03-16 07:07] LABS: Alanine Aminotransferase 18 U/L (12-78); Albumin Level 3.1 g/dl (3.5-5.0); Albumin/Globulin Ratio 1.2 (1.1-1.8); Alkaline Phosphatase 107 U/L (38-126); Anion Gap 8.5 mEq/L (5-15); Aspartate Amino Transferase 29 U/L (14-36); Bilirubin,Total 0.3 mg/dl (0.2-1.3); Blood Urea Nitrogen 14 mg/dl (7-17); Calcium 8.6 mg/dl (8.4-10.2); Carbon Dioxide 27 mmol/L (22.0-30.0); Creatinine Clearance Estimated 69 mL/min (50-200); Estimated Glomerular Filt Rate 53 ml/min (>60); GFR (African American) 64 ML/MIN (>60); Globulin 2.6 g/dL (1.3-3.2); Glucose 160 mg/dl (74-100); Total Protein,Serum 5.7 g/dl (6.3-8.2)
[2022-03-16 07:12] LABS: POC Glucose,Bedside 182 (70-110)
[2022-03-16 08:00] VITALS: BP 145/60; PULSE 68; RESP 14; TEMP 36.8; O2SAT 94
--- NOTE | 2022-03-16 08:21 | HMH.ACPN2 ---
<Meg Lopez - Last Filed: 03/16/22 08:21> Internal Medicine - PN: Subj *Date: 03/16/22 *Time: 08:21 Interval history: Patient is much more awake and alert today. She answers questions appropriately and states she feels much better. She still did not sleep last night. She was able to eat some breakfast this morning. Exam Vital signs and Labs for Last 24 Hours: Temp Pulse Resp BP Pulse Ox 98.3 F 68 14 145/60 H 94 L 03/16/22 08:00 03/16/22 08:00 03/16/22 08:00 03/16/22 08:00 03/16/22 08:00 Laboratory Results - last 24 hr 03/15/22 09:00: Hgb 9.9 L, Hct 29.2 L 03/15/22 18:47: POC Glucose 321 H* 03/15/22 21:52: POC Glucose 185 H 03/16/22 04:23: POC Glucose 146 H 03/16/22 06:07: WBC 4.9, RBC 3.16 L, Hgb 9.7 L, Hct 30.1 L, MCV 95.3, MCH 30.7, MCHC 32.3, RDW 15.1, Plt Count 286, MPV 8.2, Neut % (Auto) 45.7, Lymph % (Auto) 42.4, [place] % (Auto) 8.5, Eos % (Auto) 2.6, Baso % (Auto) 0.9, Neut # (Auto) 2.2, Lymph # (Auto) 2.1, [place] # (Auto) 0.4, Eos # (Auto) 0.1, Baso # (Auto) 0.0 03/16/22 06:07: Sodium 142, Potassium 3.5 D, Chloride 110 H, Carbon Dioxide 27, Anion Gap 8.5, BUN 14 D, Creatinine 1.00, Estimated Creat Clear 69, Estimated GFR 53 L, Est GFR ( Amer) 64, Glucose 160 H, Calcium 8.6, Total Bilirubin 0.3, AST 29 D, ALT 18 D, Alkaline Phosphatase 107, Total Protein 5.7 L, Albumin 3.1 L, Globulin 2.6, Albumin/Globulin Ratio 1.2 03/16/22 07:03: POC Glucose 182 H I & O for Last 24 hours: Intake & Output 03/13/22 03/14/22 03/15/22 03/16/22 11:59 11:59 11:59 11:59 Intake Total 408 / 408 960 / 960 Output Total 700 / 700 Balance 408 / 408 260 / 260 Weight 223 lb 1.019 oz 222 lb 9 oz Microbiology Reports for the Last 24 Hours: Microbiology 03/14/22 14:31 Urine,Catheterized Urine Culture - Preliminary Gram Negative Rods - Constitutional no acute distress - *Routine Respiratory Exam Present: CTA bilaterally - *Routine Cardiovascular Exam Present: RRR - *Routine Abdominal Exam Present: soft, normoactive bowel sounds. Absent: tenderness - *Routine Extremities Exam Present: edema (Trace bilateral lower extremity edema). Absent: cyanosis, clubbing - *Routine Skin Exam Present: warm. Absent: rash - *Routine Neurological Exam Present: alert, oriented X3 Assessment and Plan (1) Hepatic encephalopathy Status: Acute Category: Medical Code(s): K72.90 - Hepatic failure, unspecified without coma (2) Rectal bleeding Status: Acute Category: Medical Code(s): K62.5 - Hemorrhage of anus and rectum (3) UTI (urinary tract infection) Status: Acute Qualifiers: Urinary tract infection type: acute cystitis Hematuria presence: without hematuria Qualified Code(s): N30.00 - Acute cystitis without hematuria Category: Medical Code(s): N39.0 - Urinary tract infection, site not specified (4) Increased ammonia level Status: Acute Category: Medical Code(s): R79.89 - Other specified abnormal findings of blood chemistry (5) NAFLD (nonalcoholic fatty liver disease) Status: Chronic Category: Medical Code(s): K76.0 - Fatty (change of) liver, not elsewhere classified (6) CAD (coronary artery disease) Status: Chronic Category: Medical Code(s): I25.10 - Atherosclerotic heart disease of [place] coronary artery without angina pectoris (7) Chronic anemia Status: Chronic Category: Medical Code(s): D64.9 - Anemia, unspecified (8) Diabetes mellitus Status: Chronic Category: Medical Code(s): E11.9 - Type 2 diabetes mellitus without complications (9) HLD (hyperlipidemia) Status: Chronic Category: Medical Code(s): E78.5 - Hyperlipidemia, unspecified (10) History of CVA (cerebrovascular accident) Status: Chronic Category: Medical Code(s): Z86.73 - Personal history of transient ischemic attack (TIA), and cerebral infarction without residual deficits (11) Hypertension Status: Chronic Cat
--- NOTE | 2022-03-16 09:09 | HMH.DCSUM ---
General - General Admission date:: 03/14/22 Discharge date: 03/16/22 HPI HPI: Brought in by ambulance from [facility]. snf staff reports that she is sent in for altered mental status and blood-tinged stool. The patient denies any complaint at this time but does not appear to be a reliable historian at this time. She is repeatedly saying come on . However, she does specifically deny being in any pain, having any trouble breathing, being nauseated. She does state that she does not feel very good . Noted to have been seen in this emergency department yesterday for vomiting. The patient is known to me from previous emergency department visits. She has a history of hyperammonemia of uncertain cause which causes her to become encephalopathic. (above as per ER physician) Hospital Course Hospital Course: The patient was admitted and started on lactulose for her elevated ammonia level as well as Rocephin for a UTI. Her H&H was monitored due to her stool being positive for blood. Her ammonia level did decrease and her H&H decreased slightly as well. By 03/16/2022, the patient was feeling much better. She was awake and alert and answering questions appropriately. She was able to eat. Her H&H was stable and her urine culture returned positive for E. coli. She was stable to be discharged back to the [facility] on continued antibiotics and lactulose 3 times daily as she had not been receiving the Xifaxan. Objective Vital signs: Temp Pulse Resp BP Pulse Ox 98.3 F 68 14 145/60 H 94 L 03/16/22 08:00 03/16/22 08:00 03/16/22 08:00 03/16/22 08:00 03/16/22 08:00 Narrative: - Constitutional no acute distress - *Routine Respiratory Exam Present: CTA bilaterally - *Routine Cardiovascular Exam Present: RRR - *Routine Abdominal Exam Present: soft, normoactive bowel sounds. Absent: tenderness - *Routine Extremities Exam Present: edema (Trace bilateral lower extremity edema). Absent: cyanosis, clubbing - *Routine Skin Exam Present: warm. Absent: rash - *Routine Neurological Exam Present: alert, oriented X3 Results Labs on day of discharge: Labs from last 24 hours 03/16/22 03/16/22 03/16/22 07:03 06:07 06:07 WBC 4.9 RBC 3.16 L Hgb 9.7 L Hct 30.1 L MCV 95.3 MCH 30.7 MCHC 32.3 RDW 15.1 Plt Count 286 MPV 8.2 Neut % (Auto) 45.7 Lymph % (Auto) 42.4 [place] % (Auto) 8.5 Eos % (Auto) 2.6 Baso % (Auto) 0.9 Neut # (Auto) 2.2 Lymph # (Auto) 2.1 [place] # (Auto) 0.4 Eos # (Auto) 0.1 Baso # (Auto) 0.0 Sodium 142 Potassium 3.5 D Chloride 110 H Carbon Dioxide 27 Anion Gap 8.5 BUN 14 D Creatinine 1.00 Estimated Creat Clear 69 Estimated GFR 53 L Est GFR ( Amer) 64 Glucose 160 H POC Glucose 182 H Calcium 8.6 Total Bilirubin 0.3 AST 29 D ALT 18 D Alkaline Phosphatase 107 Total Protein 5.7 L Albumin 3.1 L Globulin 2.6 Albumin/Globulin Ratio 1.2 03/16/22 03/15/22 03/15/22 04:23 21:52 18:47 WBC RBC Hgb Hct MCV MCH MCHC RDW Plt Count MPV Neut % (Auto) Lymph % (Auto) [place] % (Auto) Eos % (Auto) Baso % (Auto) Neut # (Auto) Lymph # (Auto) [place] # (Auto) Eos # (Auto) Baso # (Auto) Sodium Potassium Chloride Carbon Dioxide Anion Gap BUN Creatinine Estimated Creat Clear Estimated GFR Est GFR ( Amer) Glucose POC Glucose 146 H 185 H 321 H* Calcium Total Bilirubin AST ALT Alkaline Phosphatase Total Protein Albumin Globulin Albumin/Globulin Ratio 03/15/22 09:00 WBC RBC Hgb 9.9 L Hct 29.2 L MCV MCH MCHC RDW Plt Count MPV Neut % (Auto) Lymph % (Auto) [place] % (Auto) Eos % (Auto) Baso % (Auto) Neut # (Auto) Lymph # (Auto) [place] # (Auto) Eos #
[2022-03-16 09:47] LABS: Coronavirus 19, PCR Not Detected (NotDetected); Influenza A, PCR Not Detected (NotDetected); Influenza B, PCR Not Detected (NotDetected)
--- NOTE | 2022-03-16 10:45 | PC.NURSE ---
Addendum entered by Ling Montanez RN 03/16/22 11:11: [facility] called at this time, states they will be up here shortly Original Note: Called report to Leisa at [facility]. Still waiting on COVID swab, when it results will send to [place] and call [facility] for transport.
--- NOTE | 2022-03-19 16:47 | CARE MANAGER ---
Spoke with patient's son who returned call. He states patient is still very weak, but is doing ok. She says they are giving the medicine the appropriate way. He denies any questions or concerns. YANDY Harrington
== END 2022-03-16 12:56 | DRG 442 ==
LOC: ER 16:15 → 2ND 17:23
PROVIDERS: Admitting Provider Family Medicine; Emergency Provider Emergency Medicine; PCP Family Medicine; Visit Provider Family Medicine
DX: K72.90 Hepatic failure, unspecified without coma (principal); K62.5 Hemorrhage of anus and rectum; N30.00 Acute cystitis without hematuria; Z95.5 Presence of coronary angioplasty implant and graft; Z85.828 Personal history of other malignant neoplasm of skin; M19.90 Unspecified osteoarthritis, unspecified site; I25.2 Old myocardial infarction; K21.9 Gastro-esophageal reflux disease without esophagitis; E11.9 Type 2 diabetes mellitus without complications; E78.5 Hyperlipidemia, unspecified; Z86.718 Personal history of other venous thrombosis and embolism; F32.A Depression, unspecified; F41.9 Anxiety disorder, unspecified; I25.10 Atherosclerotic heart disease of native coronary artery without angina pectoris; I11.0 Hypertensive heart disease with heart failure; I50.9 Heart failure, unspecified
CPT/HCPCS: 36415; 71045; 80053; 81001; 82140; 82272; 82962; 84484; 85014; 85018; 85025; 87086; 87088; 87186; 93005; 93798; 99285; C9803; G0328; J0696; J2405; U0003; U0005

== ENCOUNTER 2022-03-23 19:25 | Inpatient (IN) | payer MEDICARE, OTHER, SELFPAY ==
[2022-03-23] VITALS (7 sets, daily range): BP systolic 170–205; BP diastolic 70–79; PULSE 57–65; RESP 18; TEMP 36.8; O2SAT 97–99; BMI 48.0
--- NOTE | 2022-03-23 20:39 | HMH.EDGENADL ---
ED Disposition Clinical Impression: Hyperammonemia Altered mental status Qualifiers: Altered mental status type: unspecified Qualified Code(s): R41.82 - Altered mental status, unspecified Hypertension Qualifiers: Hypertension type: unspecified Qualified Code(s): I10 - Essential (primary) hypertension Disposition: Admitted as Observation Condition on Discharge: Undetermined - Critical Care Critical Care Time: No Attestation: On 03/23/22, the high probability of a clinically significant, sudden or life threatening deterioration of the following system(s) required my full and direct attention, intervention and personal management. The time I documented below is in addition to time spent performing reported procedures but includes the following listed in this critical care notation. Medical Decision Making - Medical Records Medical records reviewed: Yes: I reviewed the patient's medical records. - Wojciech Inquiry Pt receiving controlled substance: No Vital Signs: 03/23/22 19:21 03/23/22 19:54 03/23/22 21:45 Temperature 98.3 F Temperature Source Oral Pulse Rate 65 61 Pulse Rate [Apical] 59 L Respiratory Rate 18 Blood Pressure 170/70 H 185/72 H Blood Pressure [Right Arm] 170/70 H Blood Pressure Mean Blood Pressure Mean [Right Arm] 103 Blood Pressure Source Blood Pressure Source [Right Arm] Automatic Cuff Blood Pressure Position Blood Pressure Position [Right Arm] Sitting 02 Sat by Pulse Oximetry 98 97 99 Oxygen Delivery Method Room Air Room Air Room Air 03/23/22 22:00 03/23/22 22:30 03/23/22 23:00 Temperature Temperature Source Pulse Rate 61 57 L 65 Pulse Rate [Apical] Respiratory Rate Blood Pressure 190/71 H 195/71 H 205/79 H Blood Pressure [Right Arm] Blood Pressure Mean Blood Pressure Mean [Right Arm] Blood Pressure Source Blood Pressure Source [Right Arm] Blood Pressure Position Blood Pressure Position [Right Arm] 02 Sat by Pulse Oximetry 97 98 98 Oxygen Delivery Method Room Air Room Air Room Air 03/23/22 23:30 03/24/22 00:01 03/24/22 00:30 Temperature Temperature Source Pulse Rate 65 63 Pulse Rate [Apical] Respiratory Rate Blood Pressure 194/78 H 214/86 H 219/85 H Blood Pressure [Right Arm] Blood Pressure Mean 115 Blood Pressure Mean [Right Arm] Blood Pressure Source Blood Pressure Source [Right Arm] Blood Pressure Position Blood Pressure Position [Right Arm] 02 Sat by Pulse Oximetry 99 97 98 Oxygen Delivery Method Room Air Room Air Room Air 03/24/22 01:00 03/24/22 01:37 03/24/22 01:38 Temperature Temperature Source Pulse Rate 59 L Pulse Rate [Apical] Respiratory Rate Blood Pressure 171/60 H 2195/79 H 195/79 H Blood Pressure [Right Arm] Blood Pressure Mean 142 Blood Pressure Mean [Right Arm] Blood Pressure Source Blood Pressure Source [Right Arm] Blood Pressure Position Blood Pressure Position [Right Arm] 02 Sat by Pulse Oximetry 98 97 Oxygen Delivery Method Room Air Room Air 03/24/22 01:49 03/24/22 02:00 03/24/22 02:42 Temperature 98.2 F Temperature Source Oral Pulse Rate 60 Pulse Rate [Apical] Respiratory Rate 18 Blood Pressure 118/68 118/68 118/68 Blood Pressure [Right Arm] Blood Pressure Mean 99 Blood Pressure Mean [Right Arm] Blood Pressure Source Automatic Cuff Blood Pressure Source [Right Arm] Blood Pressure Position Sitting Blood Pressure Position [Right Arm] 02 Sat by Pulse Oximetry 97 Oxygen Delivery Method Room Air Room Air - Lab Data Lab results reviewed: Yes: I reviewed the patient's lab results. Lab Results 03/23/22 21:40: WBC 5.1, RBC 3.27 L, Hgb 9.8 L, Hct 32.2 L, MCV 98.6, MCH 29.9, MCHC 30.3 L, RDW 16.0, Plt Count 264, MPV 8.6, Neut % (Auto) 49.4, Lymph % (Auto) 38.3, [place] % (Auto) 7.9, Eos % (Auto) 2.8, Baso % (Auto) 1.5, Neut # (Auto) 2.5, Lymph # (Auto) 2.0, [place] # (Auto) 0.
[2022-03-23 21:52] LABS: Basophils # 0.1 K/mm3 (0-0.2); Basophils % 1.5 % (0.1-2.0); Eosinophils # 0.1 K/mm3 (0.0-0.4); Eosinophils % 2.8 % (0.1-12.0); Hematocrit 32.2 % (37.0-47.0); Hemoglobin 9.8 g/dL (12.2-16.2); Lymphocytes % 38.3 % (10-50); Mean Corpuscular HGB Conc 30.3 g/dL (31.8-35.4); Mean Corpuscular Hemoglobin 29.9 pg (27.0-31.2); Mean Corpuscular Volume 98.6 fl (81-99); Mean Platelet Volume 8.6 fl (7.4-10.4); Monocytes # 0.4 K/mm3 (0.1-1.0); Monocytes % 7.9 % (1.7-9.3); Neutrophils # 2.5 K/mm3 (1.8-7.8); Neutrophils % 49.4 % (37.0-80.0); Platelet Count 264 K/mm3 (142-424); Red Blood Count 3.27 M/mm3 (4.20-5.40); White Blood Count 5.1 K/mm3 (4.8-10.8)
[2022-03-23 22:04] LABS: Chloride 108 mmol/L (98-107)
[2022-03-23 22:05] LABS: Potassium 4.6 mmoL/L (3.5-5.1); Sodium 142 mmol/L (136-145)
[2022-03-23 22:07] LABS: Alanine Aminotransferase 28 U/L (12-78); Alkaline Phosphatase 112 U/L (38-126); Anion Gap 8.6 mEq/L (5-15); Aspartate Amino Transferase 49 U/L (14-36); Bilirubin,Total 0.4 mg/dl (0.2-1.3); Blood Urea Nitrogen 27 mg/dl (7-17); Carbon Dioxide 30 mmol/L (22.0-30.0); Creatinine Clearance Estimated 37 mL/min (50-200); Estimated Glomerular Filt Rate 53 ml/min (>60); GFR (African American) 64 ML/MIN (>60)
[2022-03-23 22:08] LABS: Albumin Level 3.5 g/dl (3.5-5.0); Albumin/Globulin Ratio 1.2 (1.1-1.8); Calcium 10.1 mg/dl (8.4-10.2); Globulin 2.9 g/dL (1.3-3.2); Glucose 126 mg/dl (74-100); Lactic Acid 2.2 mmol/L (0.7-2.1); Magnesium 1.8 mg/dl (1.6-2.3); Total Protein,Serum 6.4 g/dl (6.3-8.2)
[2022-03-23 22:13] LABS: C-Reactive Protein 1.8 mg/L (0-4)
--- NOTE | 2022-03-23 23:45 | PC.NURSE ---
Pt is a difficult stick. 3x nurses have attempted PIV without success. 2x Lab techs have attempted direct stick for labs and was successful. MD aware difficulty obtaining PIV and will attemp u/s guided PIV and if not able will consider central line.
[2022-03-24] VITALS (23 sets, daily range): BP systolic 118–2195; BP diastolic 58–91; PULSE 59–73; RESP 16–18; TEMP 36.4–37; O2SAT 95–98; BMI 39.2
[2022-03-24 00:03] LABS: Microscopic, Urine URINE MICROSCOPIC (MICROSCOPIC)
[2022-03-24 00:06] LABS: Occult Blood,Stool Positive (Negative)
[2022-03-24 00:07] LABS: Appearance,Urine CLEAR (Clear); Bilirubin,Urine Negative (Negative); Blood, Urine Negative (Negative); Color,Urine YELLOW (Yellow); Glucose,Urine (UA) Negative (Negative); Ketones,Urine Negative (Negative); Leukocyte Esterase,Urine Negative (Negative); Nitrate,Urine Negative (Negative); PH,Urine 6.5 (5.0-8.5); Protein,Urine Negative (Negative); Urobilinogen,Urine 0.2 EU/dl (0.2)
[2022-03-24 00:16] LABS: Bacteria,Urine Trace /lpf; RBC,Urine Occasional #/hpf (0-3)
--- NOTE | 2022-03-24 00:59 | PC.NURSE ---
[facility] called for an update.
[2022-03-24 01:32] LABS: Reflex Lactic Add Lactic Reflex
--- NOTE | 2022-03-24 01:34 | CT_ITS ---
PROCEDURE INFORMATION: Exam: CT Head Without Contrast Exam date and time: 03/24/2022 1:51 AM Age: 81 years old Clinical indication: Altered mental status/memory loss; Additional info: AMS TECHNIQUE: Imaging protocol: Computed tomography of the head without contrast. Radiation optimization: All CT scans at this facility use at least one of these dose optimization techniques: automated exposure control; mA and/or kV adjustment per patient size (includes targeted exams where dose is matched to clinical indication); or iterative reconstruction. COMPARISON: CT HEAD/BRAIN WO CON 02/26/2022 8:16 PM FINDINGS: Brain: Remote lacunar infarct in the right cerebellar white matter. No mass effect or midline shift. No intracranial hemorrhage. No evidence of acute territorial ischemia. There is mild diffuse heterogeneity of the white matter attenuation, consistent with chronic white matter microvascular ischemic changes. Age related atrophic changes in the brain. Cerebral ventricles: The ventricular system demonstrates mild diffuse compensatory enlargement. Paranasal sinuses: No acute findings. No fluid levels. Mastoid air cells: No significant mastoid effusion. Bones/joints: No acute fracture. Soft tissues: No acute findings. Vasculature: Atherosclerotic vascular calcifications in the carotid siphons. IMPRESSION: 1. No acute intracranial findings. 2. Other chronic changes as described.
--- NOTE | 2022-03-24 01:34 | PC.NURSE ---
Dr. Manzo pagejaida
[2022-03-24 01:50] LABS: Lactic Acid Follow Up (RFLX 1) 1.7 mmol/L (0.7-2.1)
[2022-03-24 01:55] LABS: Ammonia 200 umol/L (9-30)
[2022-03-24 02:06] LABS: Troponin I < 0.01 ng/ml (0.00-0.034)
[2022-03-24 02:06] LABS: Troponin I 0.01 ng/ml (0.00-0.034)
[2022-03-24 02:07] LABS: Coronavirus 19, PCR Not Detected (NotDetected); Influenza A, PCR Not Detected (NotDetected); Influenza B, PCR Not Detected (NotDetected)
--- NOTE | 2022-03-24 02:52 | PC.NURSE ---
Spoke with regarding patients hypertension. requests 20mg labetolol IV.
--- NOTE | 2022-03-24 03:09 | PC.NURSE ---
patient up to floor via stretcher @ this time.
[2022-03-24 06:07] LABS: POC Glucose,Bedside 123 (70-110)
[2022-03-24 07:05] LABS: Basophils # 0.1 K/mm3 (0-0.2); Basophils % 1.4 % (0.1-2.0); Eosinophils # 0.1 K/mm3 (0.0-0.4); Eosinophils % 1.2 % (0.1-12.0); Hemoglobin 9.3 g/dL (12.2-16.2); Lymphocytes % 35.6 % (10-50); Mean Corpuscular HGB Conc 31.7 g/dL (31.8-35.4); Mean Corpuscular Hemoglobin 31.3 pg (27.0-31.2); Mean Corpuscular Volume 98.8 fl (81-99); Monocytes # 0.4 K/mm3 (0.1-1.0); Monocytes % 6.9 % (1.7-9.3); Neutrophils % 54.9 % (37.0-80.0); Platelet Count 305 K/mm3 (142-424); Red Blood Count 2.98 M/mm3 (4.20-5.40); Red Cell Distribution Width 15.9 % (11.5-17.5); White Blood Count 5.5 K/mm3 (4.8-10.8)
[2022-03-24 07:06] LABS: Hematocrit 29.4 % (37.0-47.0)
[2022-03-24 07:08] LABS: Chloride 109 mmol/L (98-107); Potassium 4.4 mmoL/L (3.5-5.1); Sodium 142 mmol/L (136-145)
[2022-03-24 07:10] LABS: Blood Urea Nitrogen 26 mg/dl (7-17); Creatinine Clearance Estimated 71 mL/min (50-200); Estimated Glomerular Filt Rate 53 ml/min (>60); GFR (African American) 64 ML/MIN (>60)
[2022-03-24 07:11] LABS: Alanine Aminotransferase 26 U/L (12-78); Albumin Level 3.4 g/dl (3.5-5.0); Albumin/Globulin Ratio 1.3 (1.1-1.8); Alkaline Phosphatase 122 U/L (38-126); Anion Gap 9.4 mEq/L (5-15); Aspartate Amino Transferase 35 U/L (14-36); Bilirubin,Total 0.3 mg/dl (0.2-1.3); Carbon Dioxide 28 mmol/L (22.0-30.0); Globulin 2.7 g/dL (1.3-3.2); Glucose 132 mg/dl (74-100); Total Protein,Serum 6.1 g/dl (6.3-8.2)
--- NOTE | 2022-03-24 08:59 | HMH.PHAVTE ---
[facility] Pharmacy VTE Monitoring - Patient Demographics Admission date: 03/24/22 Report Date: 03/24/22 Time: 08:59 Allergies/Adverse Reactions: Patient Allergies Iodinated Contrast Media Allergy (Intermediate, Verified 02/14/22 09:23) naproxen [NAPROXEN] Allergy (Mild, Verified 02/14/22 09:23) Height: 1.63 m Weight: 104.326 kg Patient Problems: Current Active Problems Altered mental status (Acute) Hypertension (Acute) Hyperammonemia (Acute) - VTE Risk Labs: VTE Related Lab Results Hgb 9.3 g/dL (12.2-16.2) L 03/24/22 06:57 Hct 29.4 % (37.0-47.0) L 03/24/22 06:57 Plt Count 305 K/mm3 (142-424) 03/24/22 06:57 BUN 26 mg/dl (7-17) H 03/24/22 06:57 Creatinine 1.00 mg/dl (0.52-1.04) 03/24/22 06:57 Estimated Creat Clear 71 mL/min (50-200) 03/24/22 06:57 Was VTE Risk Assessment Performed: Yes VTE Risk Level: Moderate Risk Clinical Trial Participant: No - Prophylaxis VTE Prophylaxis Ordered?: Yes Types of VTE Prophylaxis: TEDS Knee High
--- NOTE | 2022-03-24 09:55 | HMH.PHAINT ---
VERIFIED HOME MEDICATION LIST USING LIST FROM PRISON
--- NOTE | 2022-03-24 10:43 | HMH.HP ---
*Admission Date: 03/24/22 *History of present illness: Ms. Moctezuma is an 81-year-old white female who is a resident of [facility] and was sent to the ER because of rectal bleeding and altered mental status. 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 She has also been worked up for rectal bleeding with most recent colonoscopy in September 2021 showing diverticulosis. She is on Plavix for coronary artery disease as well. In the emergency room she was found to be hypertensive and required IV labetalol. Her ammonia level was elevated at 200. White blood cell count normal. UA unremarkable. Head CT showed nothing acute. She has been admitted for further observation and treatment with IV fluids and monitoring of her hemoglobin. Blood pressure has been stable since admission to the floor [facility] History Medical History: Reports:: Anxiety, Congestive Heart Failure, Coronary Artery Disease, Cerebrovascular Accident, Deep Vein Thrombosis, Depression, Diabetes Mellitus Type 2, Gastroesophageal Reflux Disease(GERD), Gastrointestinal Bleed (Probably diverticular), Hyperlipidemia, Hypertension, Myocardial Infarction, Urinary Tract Infection Denies:: Cancer, Diabetes Mellitus Type 1, Internal Pacemaker, MRSA, Seizures *Have you ever received a pneumonia vaccine?: Yes *Have you received a flu vaccine this season?: Yes Other Medical History: Reports: Anemia, Arthritis, Hypothyroidism Other Surgeries: Yes: Appendectomy, Cardiac Catheterization, Cholecystectomy, Colonoscopy, Coronary Stent, EGD, Hernia Repair, Hysterectomy-Total, Skin Cancer Excision, Other. No: Pacemaker Amputation: No Fractures: Yes (L humerus, R humerus) - *Social History Smoking Status: Unknown if ever smoked Alcohol Intake: never Alcohol Intake Frequency:: other Substance Use Type: denies use *Occupational Status:: retired Housing: senior care Household Members: none *Travel in the last 8 weeks: None - Psychiatric History Pschychiatric History:: Reports:: Anxiety, Depression Family Hx:: Coronary Artery Disease Review of Systems - Review of Systems Review of systems:: unable to obtain Meds Home Medications Medication Instructions Recorded Confirmed Type cyanocobalamin (vitamin B-12) 1,000 mcg PO DAILY 02/10/18 03/24/22 History 1,000 mcg tablet pravastatin 80 mg tablet 80 mg PO HS 02/10/18 03/24/22 History Calcium Carbonate/Vitamin D3 1 tab PO DAILY 02/05/21 03/24/22 History [Calcium 600-Vit D3 800 Tablet] carvediloL [Carvedilol 6.25mg Tab] 6.25 mg PO BID 02/05/21 03/24/22 History Levothyroxine Sodium 150 mcg PO DAILY 02/08/21 03/24/22 History [Levothyroxine 150mcg (0.15mg) Tab] clopidogrel 75 mg tablet 75 mg PO DAILY tab 03/24/21 03/24/22 History Cetirizine HCl 10 mg PO DAILY 03/31/21 03/24/22 History Pantoprazole Sodium [Protonix 40mg 40 mg PO DAILY 03/31/21 03/24/22 History tablet] Ropinirole HCl [Requip 0.25mg 0.25 mg PO HS 04/10/21 03/24/22 History Tablet] Ascorbate Calcium [Calcium 500 mg PO DAILY 07/13/21 03/24/22 History Ascorbate] Ferrous Sulfate [Ferosul] 325 mg PO DAILY 08/16/21 03/24/22 History Aspirin 81 mg PO DAILY 09/03/21 03/24/22 History Potassium Chloride [Micro-K 10mEq 10 meq PO DAILY 09/03/21 03/24/22 History cap] Acetaminophen 500 mg PO Q4HP PRN 10/02/21 03/24/22 History Albuterol Sulfate [Albuterol 2.5 mg IH Q4HP PRN 12/05/21 03/24/22 History 0.083% 2.5mg/3mL neb] Spironolactone [Aldactone 25mg 25 mg PO BID 12/16/21 03/24/22 History Tab] Multivitamin [Multi-Vitamin Plain] 1 tab PO DAILY 12/18/21 03/24/22 History Bumetanide [Bumex 1mg tablet] 1 mg PO DAILY 02/26/22 03/24/22 History Fluticasone Propionate 2 spray NS DAILY 02/26/22 03/24/22 History lisinopriL [Lisinopril] 20 mg PO DAILY 02/27/22 03/24/22 History Rifaximin [Xifaxan 550mg Tablet] 550 mg PO BID 03/14/22 03/24/22 History Insulin G
--- NOTE | 2022-03-24 13:34 | PC.NURSE ---
pt is lethargic and does not respond to verbal commands. We have turned and repositioned pt q2hrs. she has had 2 episodes of vomiting a small amount of green liquid. Pt is unable to take in po medications @ this time due to altered mental status.
--- NOTE | 2022-03-24 15:52 | PC.NURSE ---
amparo [employer] integration aide for elevated BP
--- NOTE | 2022-03-24 17:37 | PC.NURSE ---
Addendum entered by Jyoti Mccoy RN 03/24/22 17:41: new orders for iv labetalol obtained. bp responded thus far Original Note: notified MD of pt lethargy and unable to tolerate po intake. She arrouses to painful stimuli but not to voice. No more episodes of vomiting noted.
[2022-03-25] VITALS (13 sets, daily range): BP systolic 120–220; BP diastolic 54–110; PULSE 66–75; RESP 18–20; TEMP 36.6–36.9; O2SAT 95–98
--- NOTE | 2022-03-25 05:21 | PC.NURSE ---
No acute changes since previous assessment. Dr. Manzo contacted at beginning of my shift d/t hypertension. New orders received and medicated per MAR with favorable results. Pt remains lethargic, but will open eyes and makes incoherent noises when touched or moved. Pt is unable to answer questions or follow commands at this time. Pt is incontinent, purewick in place. Pt is voiding adequate amount of yellow urine. Turning q2hrs. IV infusing per order. Positive blood cultures called to Dr. Manzo. No new orders at this time. Call light in reach.
[2022-03-25 07:58] LABS: Basophils # 0.1 K/mm3 (0-0.2); Basophils % 2.1 % (0.1-2.0); Eosinophils # 0.1 K/mm3 (0.0-0.4); Eosinophils % 1.5 % (0.1-12.0); Hematocrit 28.4 % (37.0-47.0); Hemoglobin 8.9 g/dL (12.2-16.2); Lymphocytes # 1.7 K/mm3 (0.7-4.5); Mean Corpuscular HGB Conc 31.3 g/dL (31.8-35.4); Mean Corpuscular Hemoglobin 30.4 pg (27.0-31.2); Mean Corpuscular Volume 97.1 fl (81-99); Mean Platelet Volume 8.8 fl (7.4-10.4); Monocytes # 0.4 K/mm3 (0.1-1.0); Monocytes % 8.9 % (1.7-9.3); Neutrophils # 2.4 K/mm3 (1.8-7.8); Neutrophils % 50.5 % (37.0-80.0); Platelet Count 333 K/mm3 (142-424); Red Blood Count 2.92 M/mm3 (4.20-5.40); White Blood Count 4.7 K/mm3 (4.8-10.8)
[2022-03-25 08:03] LABS: Chloride 110 mmol/L (98-107); Sodium 140 mmol/L (136-145)
[2022-03-25 08:04] LABS: Potassium 4.9 mmoL/L (3.5-5.1)
[2022-03-25 08:06] LABS: Blood Urea Nitrogen 25 mg/dl (7-17); Creatinine Clearance Estimated 71 mL/min (50-200); Estimated Glomerular Filt Rate 53 ml/min (>60); GFR (African American) 64 ML/MIN (>60)
[2022-03-25 08:07] LABS: Anion Gap 9.9 mEq/L (5-15); Calcium 9.6 mg/dl (8.4-10.2); Carbon Dioxide 25 mmol/L (22.0-30.0); Glucose 188 mg/dl (74-100)
[2022-03-25 08:08] LABS: Ammonia 139 umol/L (9-30)
--- NOTE | 2022-03-25 09:14 | HMH.ACPN2 ---
Internal Medicine - PN: Subj *Date: 03/25/22 *Time: 09:14 Interval history: Remains confused and sleepy most of the time. Has not been able to take any medication. Blood pressure was elevated during the night requiring IV labetalol. Ammonia level has improved some with IV fluids. No stools reported overnight. Exam Vital signs and Labs for Last 24 Hours: Temp Pulse Resp BP Pulse Ox 97.9 F 72 18 154/63 H 97 03/25/22 08:00 03/25/22 08:00 03/25/22 08:00 03/25/22 08:00 03/25/22 08:00 Laboratory Results - last 24 hr 03/25/22 07:29: WBC 4.7 L, RBC 2.92 L, Hgb 8.9 L, Hct 28.4 L, MCV 97.1, MCH 30.4, MCHC 31.3 L, RDW 16.0, Plt Count 333, MPV 8.8, Neut % (Auto) 50.5, Lymph % (Auto) 37.0, Day % (Auto) 8.9, Eos % (Auto) 1.5, Baso % (Auto) 2.1 H, Neut # (Auto) 2.4, Lymph # (Auto) 1.7, Day # (Auto) 0.4, Eos # (Auto) 0.1, Baso # (Auto) 0.1 03/25/22 07:29: Sodium 140, Potassium 4.9, Chloride 110 H, Carbon Dioxide 25, Anion Gap 9.9, BUN 25 H, Creatinine 1.00, Estimated Creat Clear 71, Estimated GFR 53 L, Est GFR ( Amer) 64, Glucose 188 H, Calcium 9.6 03/25/22 07:29: Ammonia 139 H I & O for Last 24 hours: Intake & Output 03/22/22 03/23/22 03/24/22 03/25/22 11:59 11:59 11:59 11:59 Intake Total 600 / 600 Output Total 550 / 550 Balance 50 / 50 Weight 230 lb Microbiology Reports for the Last 24 Hours: Microbiology 03/23/22 21:40 Blood Blood Culture - Preliminary 03/23/22 23:59 Urine,Catheterized Urine Culture - Preliminary NO GROWTH AFTER 24 HOURS Narrative: Does not respond to voice. Moans with physical stimuli. No respiratory distress. Color is good. Lungs are clear. Abdomen soft and nondistended with no apparent tenderness. Extremities with 1+ edema. Assessment and Plan (1) Altered mental status Status: Acute Qualifiers: Altered mental status type: unspecified Qualified Code(s): R41.82 - Altered mental status, unspecified Category: Medical Code(s): R41.82 - Altered mental status, unspecified (2) NAFLD (nonalcoholic fatty liver disease) Status: Chronic Category: Medical Code(s): K76.0 - Fatty (change of) liver, not elsewhere classified (3) Hyperammonemia Status: Acute Category: Medical Code(s): E72.20 - Disorder of urea cycle metabolism, unspecified (4) Acute hepatic encephalopathy Status: Acute Category: Medical Code(s): K72.00 - Acute and subacute hepatic failure without coma (5) Lower GI bleed Status: Acute Category: Medical Code(s): K92.2 - Gastrointestinal hemorrhage, unspecified (6) CAD (coronary artery disease) Status: Chronic Qualifiers: Category: Medical Code(s): I25.10 - Atherosclerotic heart disease of [place] coronary artery without angina pectoris (7) Diabetes mellitus Status: Chronic Qualifiers: Category: Medical Code(s): E11.9 - Type 2 diabetes mellitus without complications (8) Hypertension Status: Chronic Qualifiers: Category: Medical Code(s): I10 - Essential (primary) hypertension (9) Hypothyroid Status: Chronic Qualifiers: Category: Medical Code(s): E03.9 - Hypothyroidism, unspecified (10) Blood loss anemia Status: Acute Category: Medical Code(s): D50.0 - Iron deficiency anemia secondary to blood loss (chronic) - Assessment and plan all Dx Assessment and Plan for all problems:: Presents with altered mental status secondary to hepatic encephalopathy. Ammonia level has improved with IV fluids but unable to take oral lactulose or Xifaxan. IV sodium benzoate is not available on the formulary. Will speak with family regarding NG tube to administer medications. Continue to monitor hemoglobin.
--- NOTE | 2022-03-25 13:15 | XR_ITS ---
PROCEDURE INFORMATION: Exam: XR Chest Exam date and time: 03/25/2022 1:29 PM Age: 81 years old Clinical indication: Device placement; Patient HX: Ng tube placed with patient having excessive bright red blood coming out of her mouth post ng tube placed. ; Additional info: Ng placement TECHNIQUE: Imaging protocol: Radiologic exam of the chest. Views: 1 view. COMPARISON: CR XR CHEST PORTABLE 03/14/2022 2:37 PM FINDINGS: Tubes, catheters and devices: Nasogastric tube courses through the midline chest with tip in the proximal stomach body. Airway: Central airways are patent. Lungs: Sobieski shaped density in the left mid lung, measuring 1.7 cm. Remainder of the lungs are clear. Pleural spaces: No large pleural effusions. No pneumothorax. Heart/Mediastinum: Moderate cardiomegaly. Bones/joints: No acute skeletal abnormality or aggressive osseous lesion. IMPRESSION: 1. Nasogastric tube tip in the proximal stomach body. 2. Left mid lung findings most probably related to a small loculated pleural effusion at this level versus atelectasis.
--- NOTE | 2022-03-25 17:02 | PC.NURSE ---
spoke with MD regarding pt bp and bleeding from NG site.
--- NOTE | 2022-03-25 18:43 | PC.NURSE ---
paged regarding pt bleeding from NG. awaiting call back
[2022-03-26] VITALS: BP 164/76; BP 166/67; PULSE 71; RESP 18; RESP 21; TEMP 36.7; TEMP 36.9; O2SAT 97; O2SAT 98
[2022-03-26 04:00] VITALS: BP 154/60; PULSE 73; RESP 16; TEMP 36.6; O2SAT 97
--- NOTE | 2022-03-26 05:35 | PC.NURSE ---
No changes since previous assessment. Pts NG tube is still draining dark, red liquid (see I&O). Pt has some bleeding at NG site, but not constant. Pt voiding dark reddish/brown urine per purewick with adequate output. Coag panel ordered for this AM per Dr. Manzo. also changed pts PO protonix to IV. Turning q2hrs, oral care as needed. Call light in reach.
[2022-03-26 06:31] LABS: Basophils # 0.2 K/mm3 (0-0.2); Basophils % 3.6 % (0.1-2.0); Eosinophils # 0.1 K/mm3 (0.0-0.4); Eosinophils % 1.5 % (0.1-12.0); Hemoglobin 8.5 g/dL (12.2-16.2); Lymphocytes # 1.8 K/mm3 (0.7-4.5); Lymphocytes % 28.4 % (10-50); Mean Corpuscular HGB Conc 31.2 g/dL (31.8-35.4); Mean Corpuscular Hemoglobin 30.8 pg (27.0-31.2); Mean Corpuscular Volume 98.9 fl (81-99); Mean Platelet Volume 8.3 fl (7.4-10.4); Monocytes # 0.5 K/mm3 (0.1-1.0); Monocytes % 7.3 % (1.7-9.3); Neutrophils # 3.8 K/mm3 (1.8-7.8); Neutrophils % 59.1 % (37.0-80.0); Platelet Count 312 K/mm3 (142-424); Red Blood Count 2.77 M/mm3 (4.20-5.40); Red Cell Distribution Width 16.2 % (11.5-17.5); White Blood Count 6.4 K/mm3 (4.8-10.8)
[2022-03-26 06:32] LABS: Hematocrit 27.4 % (37.0-47.0)
[2022-03-26 06:41] LABS: Chloride 111 mmol/L (98-107); Potassium 4.1 mmoL/L (3.5-5.1); Sodium 140 mmol/L (136-145)
[2022-03-26 06:43] LABS: Blood Urea Nitrogen 24 mg/dl (7-17); Creatinine Clearance Estimated 71 mL/min (50-200); Estimated Glomerular Filt Rate 53 ml/min (>60); GFR (African American) 64 ML/MIN (>60)
[2022-03-26 06:44] LABS: Alanine Aminotransferase 23 U/L (12-78); Albumin Level 3.1 g/dl (3.5-5.0); Albumin/Globulin Ratio 1.2 (1.1-1.8); Alkaline Phosphatase 106 U/L (38-126); Ammonia 100 umol/L (9-30); Anion Gap 9.1 mEq/L (5-15); Aspartate Amino Transferase 33 U/L (14-36); Bilirubin,Total 0.5 mg/dl (0.2-1.3); Calcium 9.2 mg/dl (8.4-10.2); Carbon Dioxide 24 mmol/L (22.0-30.0); Globulin 2.6 g/dL (1.3-3.2); Glucose 214 mg/dl (74-100); Total Protein,Serum 5.7 g/dl (6.3-8.2)
[2022-03-26 07:03] LABS: INR 1.01 (0.9-1.1); Prothrombin Time 11.4 seconds (10.1-12.5)
[2022-03-26 08:00] VITALS: BP 183/77; PULSE 82; RESP 20; TEMP 36.8; O2SAT 96
--- NOTE | 2022-03-26 09:01 | HMH.ACPN2 ---
<Edie Sparks - Last Filed: 03/26/22 09:01> Internal Medicine - PN: Subj *Date: 03/26/22 *Time: 09:01 Interval history: Patient continues to be poorly responsive and unable to answer questions. She mumbles repetitive sounds. She had an NG tube placed yesterday administration of medications. She did have some bleeding through the nares and has had some bloody drainage from the stomach since placement. Chest x-ray shows good placement of the tube. Laboratory data this morning shows a hemoglobin of 8.5 hematocrit of 27.4. Chemistries show sodium of 140 potassium of 4.1. BUN is 24 and creatinine is 1. Ammonia is now at 100. Exam Vital signs and Labs for Last 24 Hours: Temp Pulse Resp BP Pulse Ox 97.9 F 73 16 154/60 H 97 03/26/22 04:00 03/26/22 04:00 03/26/22 04:00 03/26/22 04:00 03/26/22 04:00 Laboratory Results - last 24 hr 03/26/22 06:20: WBC 6.4 D, RBC 2.77 L, Hgb 8.5 L, Hct 27.4 L, MCV 98.9, MCH 30.8, MCHC 31.2 L, RDW 16.2, Plt Count 312, MPV 8.3, Neut % (Auto) 59.1, Lymph % (Auto) 28.4, [place] % (Auto) 7.3, Eos % (Auto) 1.5, Baso % (Auto) 3.6 H, Neut # (Auto) 3.8, Lymph # (Auto) 1.8, [place] # (Auto) 0.5, Eos # (Auto) 0.1, Baso # (Auto) 0.2 03/26/22 06:20: Ammonia 100 H 03/26/22 06:20: PT 11.4, INR 1.01, APTT 18.0 L 03/26/22 06:20: Sodium 140, Potassium 4.1, Chloride 111 H, Carbon Dioxide 24, Anion Gap 9.1, BUN 24 H, Creatinine 1.00, Estimated Creat Clear 71, Estimated GFR 53 L, Est GFR ( Amer) 64, Glucose 214 H, Calcium 9.2, Total Bilirubin 0.5, AST 33, ALT 23, Alkaline Phosphatase 106, Total Protein 5.7 L, Albumin 3.1 L, Globulin 2.6, Albumin/Globulin Ratio 1.2 I & O for Last 24 hours: Intake & Output 03/23/22 03/24/22 03/25/22 03/26/22 11:59 11:59 11:59 11:59 Intake Total 600 / 600 600 / 600 Output Total 550 / 1000 1450 / 1450 Balance 50 / -400 -850 / -850 Weight 230 lb Microbiology Reports for the Last 24 Hours: Microbiology 03/23/22 23:59 Urine,Catheterized Urine Culture - Final NO GROWTH AFTER 48 HOURS 03/23/22 21:40 Blood Blood Culture - Preliminary NO GROWTH AFTER 48 HOURS - Constitutional no acute distress - *Routine Respiratory Exam Present: CTA bilaterally - *Routine Cardiovascular Exam Present: RRR - *Routine Abdominal Exam Present: soft, normoactive bowel sounds. Absent: distended - *Routine Extremities Exam Present: edema (Minimal ankle) - *Routine Neurological Exam Absent: alert, normal speech With stimuli patient does mumble repetitive sounds. Assessment and Plan (1) Altered mental status Status: Acute Qualifiers: Altered mental status type: unspecified Qualified Code(s): R41.82 - Altered mental status, unspecified Category: Medical Code(s): R41.82 - Altered mental status, unspecified (2) NAFLD (nonalcoholic fatty liver disease) Status: Chronic Category: Medical Code(s): K76.0 - Fatty (change of) liver, not elsewhere classified (3) Hyperammonemia Status: Acute Category: Medical Code(s): E72.20 - Disorder of urea cycle metabolism, unspecified (4) Acute hepatic encephalopathy Status: Acute Category: Medical Code(s): K72.00 - Acute and subacute hepatic failure without coma (5) Lower GI bleed Status: Acute Category: Medical Code(s): K92.2 - Gastrointestinal hemorrhage, unspecified (6) CAD (coronary artery disease) Status: Chronic Category: Medical Code(s): I25.10 - Atherosclerotic heart disease of [place] coronary artery without angina pectoris (7) Diabetes mellitus Status: Chronic Category: Medical Code(s): E11.9 - Type 2 diabetes mellitus without complications (8) Hypertension Status: Chronic Category: Medical Code(s): I10 - Essential (primary) hypertension (9) Hypothyroid Status: Chronic Category: Medical Code(s): E03.9 - Hypothyroidism, unspecified (10) Blood loss anemia Status: Acute Ca
--- NOTE | 2022-03-26 09:39 | SW/DCPLANNER ---
Addendum entered by Kimber Browning 03/27/22 11:33: Patient information has been faxed to [facility] at this time. Prize Jacker (Ameena Mendez) spoke with family regarding Hospice services and family is interested in services at this time. Family would prefer that patient still return to [facility] at time of discharge. Original Note: This patient is currently [facility] level of care from [facility]. Updated patient information has been faxed to [facility]/ [facility]. Discharge date is unknown at this time.
--- NOTE | 2022-03-26 10:16 | PC.NURSE ---
rounded on patient. patient is unable to speak with staff, and is confused. words do not make sense. noted nostril with ng tube was bleeding and tape on nose around ng was very darkened in blood. assisted with primary nurse in removing old tape cleaning nose and redressing around the ng tube. oral care was also provided with lip moisutrizer applied . patient tolerated fairly. did not like oral care.
[2022-03-26 11:12] VITALS: BMI 39.1
[2022-03-26 12:00] VITALS: BP 157/67; PULSE 73; RESP 18; TEMP 37.1; O2SAT 96
--- NOTE | 2022-03-26 15:29 | PC.NURSE ---
NO CHANGE SINCE PREVIOUS ASSESSMENT. PT INCOMPREHENSIBLE, WILL OPEN EYES TO LIGHT PAIN BUT UNABLE TO HOLD MEANINGFUL CONVERSATION. NG REMAINS IN PLACE FOR HYDRAULIC MECHANIC. PUREWICK FOR ELIMINATION. ONE LARGE BM THIS SHIFT BLACK AND TARRY IN APPEARANCE. TOLERATING ROOM AIR. Q2 TURN AND ORAL CARE. 1 NOSEBLEED NOTED THIS SHIFT. PT NG TUBE ANCHOR REPLACED. BATH AND LINEN CHANGE THIS SHIFT.
[2022-03-26 16:00] VITALS: BP 153/63; PULSE 71; RESP 18; TEMP 36.7; O2SAT 98
[2022-03-26 20:00] VITALS: BP 160/89; PULSE 67; RESP 21; TEMP 36.7; O2SAT 97
[2022-03-26 20:46] LABS: POC Glucose,Bedside 234 (70-110)
[2022-03-27] VITALS: BP 169/75; PULSE 77; RESP 20; TEMP 36.8; O2SAT 97
[2022-03-27 05:00] VITALS: BP 164/79; PULSE 76; RESP 20; TEMP 36.8; O2SAT 96; BMI 37.8
[2022-03-27 06:16] LABS: POC Glucose,Bedside 224 (70-110)
[2022-03-27 06:16] LABS: POC Glucose,Bedside 216 (70-110)
[2022-03-27 07:50] LABS: Ammonia 22 umol/L (9-30)
[2022-03-27 07:54] LABS: Basophils # 0.1 K/mm3 (0-0.2); Basophils % 0.8 % (0.1-2.0); Eosinophils # 0.1 K/mm3 (0.0-0.4); Eosinophils % 1.3 % (0.1-12.0); Hematocrit 28.9 % (37.0-47.0); Hemoglobin 8.8 g/dL (12.2-16.2); Lymphocytes # 1.6 K/mm3 (0.7-4.5); Lymphocytes % 20.1 % (10-50); Mean Corpuscular HGB Conc 30.6 g/dL (31.8-35.4); Mean Corpuscular Hemoglobin 30.9 pg (27.0-31.2); Mean Corpuscular Volume 101.2 fl (81-99); Monocytes # 0.6 K/mm3 (0.1-1.0); Monocytes % 7.4 % (1.7-9.3); Neutrophils # 5.5 K/mm3 (1.8-7.8); Neutrophils % 70.4 % (37.0-80.0); Platelet Count 282 K/mm3 (142-424); Red Blood Count 2.86 M/mm3 (4.20-5.40); Red Cell Distribution Width 15.8 % (11.5-17.5); White Blood Count 7.7 K/mm3 (4.8-10.8)
[2022-03-27 08:00] VITALS: BP 165/74; PULSE 74; RESP 24; TEMP 37.2; O2SAT 97
--- NOTE | 2022-03-27 08:33 | PC.NURSE ---
NG tube removed; patient tolerated well; will continue to monitor.
--- NOTE | 2022-03-27 08:48 | HMH.ACPN2 ---
<Edie Sparks - Last Filed: 03/27/22 08:48> Internal Medicine - PN: Subj *Date: 03/27/22 *Time: 08:48 Interval history: Patient states she was hungry today. She denies pain. Questionable shortness of breath. She is constantly clearing mucus out of the back of her throat which is blood-tinged. Nurses report black tarry stool last evening. Questionable fresh red blood. She has continued to have bloody mucus orally. No dariana bleeding. She has a pure wick to drainage. She became more alert yesterday evening but made repetitive words/sounds. This a.m. patient makes needs known. Speech is more clear and she will open her eyes. She is speaking in full sentences. Exam Vital signs and Labs for Last 24 Hours: Temp Pulse Resp BP Pulse Ox 99 F 74 24 165/74 H 97 03/27/22 08:00 03/27/22 08:00 03/27/22 08:00 03/27/22 08:00 03/27/22 08:00 Laboratory Results - last 24 hr 03/26/22 11:19: POC Glucose 234 H 03/26/22 17:37: POC Glucose 224 H 03/26/22 22:18: POC Glucose 216 H 03/27/22 07:05: WBC 7.7, RBC 2.86 L, Hgb 8.8 L, Hct 28.9 L, MCV 101.2 H, MCH 30.9, MCHC 30.6 L, RDW 15.8, Plt Count 282, MPV 10.0, Neut % (Auto) 70.4, Lymph % (Auto) 20.1, [place] % (Auto) 7.4, Eos % (Auto) 1.3, Baso % (Auto) 0.8, Neut # (Auto) 5.5, Lymph # (Auto) 1.6, [place] # (Auto) 0.6, Eos # (Auto) 0.1, Baso # (Auto) 0.1 03/27/22 07:05: Ammonia 22 I & O for Last 24 hours: Intake & Output 03/24/22 03/25/22 03/26/22 03/27/22 11:59 11:59 11:59 11:59 Intake Total 600 / 600 1000 / 1000 1234 / 1234 Output Total 550 / 1000 1450 / 1450 550 / 550 Balance 50 / -400 -450 / -450 684 / 684 Weight 230 lb 229 lb 4.492 oz 221 lb 6.4 oz Microbiology Reports for the Last 24 Hours: Microbiology 03/23/22 21:40 Blood Blood Culture - Preliminary Gram Positive Cocci - Constitutional no acute distress Comments: Patient crying help me help me. Spitting frequent mucus blood-tinged mucus. NG tube initially in place and that was removed. Patient did assist with exam. - *Routine Respiratory Exam Present: CTA bilaterally (Anteriorly and posteriorly) - *Routine Cardiovascular Exam Present: RRR - *Routine Abdominal Exam Present: soft, normoactive bowel sounds, obese. Absent: tenderness - *Routine Extremities Exam Present: edema (Bilateral lower leg) - *Routine Neurological Exam Present: alert Patient knows the name of her physician and where she is today. Assessment and Plan (1) Altered mental status Status: Acute Qualifiers: Altered mental status type: unspecified Qualified Code(s): R41.82 - Altered mental status, unspecified Category: Medical Code(s): R41.82 - Altered mental status, unspecified (2) NAFLD (nonalcoholic fatty liver disease) Status: Chronic Category: Medical Code(s): K76.0 - Fatty (change of) liver, not elsewhere classified (3) Hyperammonemia Status: Acute Category: Medical Code(s): E72.20 - Disorder of urea cycle metabolism, unspecified (4) Acute hepatic encephalopathy Status: Acute Category: Medical Code(s): K72.00 - Acute and subacute hepatic failure without coma (5) Lower GI bleed Status: Acute Category: Medical Code(s): K92.2 - Gastrointestinal hemorrhage, unspecified (6) CAD (coronary artery disease) Status: Chronic Category: Medical Code(s): I25.10 - Atherosclerotic heart disease of [place] coronary artery without angina pectoris (7) Diabetes mellitus Status: Chronic Category: Medical Code(s): E11.9 - Type 2 diabetes mellitus without complications (8) Hypertension Status: Chronic Category: Medical Code(s): I10 - Essential (primary) hypertension (9) Hypothyroid Status: Chronic Category: Medical Code(s): E03.9 - Hypothyroidism, unspecified (10) Blood loss anemia Status: Acute Category: Medical Code(s): D50.0 - Iron deficiency anemia secondary to blood loss (chronic) - Assessment and alison
[2022-03-27 12:00] VITALS: BP 139/52; PULSE 66; RESP 19; TEMP 36.5; O2SAT 94
--- NOTE | 2022-03-27 12:42 | PC.NURSE ---
1130-rounded on pt at this time. pt resting in bed, very drowsy but answers questions. pt requested a drink, assisted pt with drink that was on bedside table. pt denies any other needs. pt denies pain/nausea. instructed pt to call for nurse if any other needs/questions arise.
--- NOTE | 2022-03-27 15:26 | PC.NURSE ---
PATIENT IV DUE TO BE CHANGED. PATIENT EDUCATED ON THIS AND STUCK ONCE. WAS UNSUCCESSFUL. PATIENT STATED SHE DIDN'T WANT US TO TRY AGAIN.
[2022-03-27 16:00] VITALS: BP 136/55; PULSE 68; RESP 22; TEMP 36.4; O2SAT 97
[2022-03-27 20:00] VITALS: BP 147/48; PULSE 68; RESP 18; TEMP 37.2; O2SAT 95
[2022-03-27 20:58] LABS: POC Glucose,Bedside 189 (70-110)
[2022-03-27 20:58] LABS: POC Glucose,Bedside 187 (70-110)
[2022-03-28] VITALS (8 sets, daily range): BP systolic 113–138; BP diastolic 45–53; PULSE 58–69; RESP 16–17; TEMP 36.9–37.2; O2SAT 97–99; BMI 38.8
--- NOTE | 2022-03-28 04:38 | PC.NURSE ---
Pt more alert this shift. Pt denied pain. X1 bowel movement. Remains dark brown in color and loose. Pt is getting lactulose for elevated ammonia.
[2022-03-28 07:14] LABS: Chloride 111 mmol/L (98-107); Sodium 139 mmol/L (136-145)
[2022-03-28 07:15] LABS: Potassium 3.6 mmoL/L (3.5-5.1)
[2022-03-28 07:16] LABS: Basophils % 0.8 % (0.1-2.0); Eosinophils # 0.1 K/mm3 (0.0-0.4); Eosinophils % 1.9 % (0.1-12.0); Hematocrit 25.8 % (37.0-47.0); Hemoglobin 8.3 g/dL (12.2-16.2); Lymphocytes # 1.9 K/mm3 (0.7-4.5); Lymphocytes % 38.1 % (10-50); Mean Corpuscular HGB Conc 32.1 g/dL (31.8-35.4); Mean Corpuscular Hemoglobin 30.4 pg (27.0-31.2); Mean Corpuscular Volume 94.8 fl (81-99); Mean Platelet Volume 9.8 fl (7.4-10.4); Monocytes # 0.5 K/mm3 (0.1-1.0); Monocytes % 10.3 % (1.7-9.3); Neutrophils # 2.4 K/mm3 (1.8-7.8); Neutrophils % 48.9 % (37.0-80.0); Platelet Count 217 K/mm3 (142-424); Red Blood Count 2.72 M/mm3 (4.20-5.40); Red Cell Distribution Width 14.9 % (11.5-17.5); White Blood Count 4.9 K/mm3 (4.8-10.8)
[2022-03-28 07:17] LABS: Anion Gap 6.6 mEq/L (5-15); Blood Urea Nitrogen 21 mg/dl (7-17); Carbon Dioxide 25 mmol/L (22.0-30.0); Creatinine Clearance Estimated 71 mL/min (50-200); Estimated Glomerular Filt Rate 53 ml/min (>60); GFR (African American) 64 ML/MIN (>60)
[2022-03-28 07:18] LABS: Calcium 8.6 mg/dl (8.4-10.2); Glucose 197 mg/dl (74-100)
--- NOTE | 2022-03-28 08:05 | XR_ITS ---
FINAL REPORT CLINICAL HISTORY: productive cough COMPARISON: March 25, 2022 FINDINGS: A single portable view of the chest was obtained. The heart size and pulmonary vascularity are within normal limits. The mediastinum is within normal limits. There is mild atelectasis in the right lung. There is worsening left lung opacities, pneumonia or atelectasis. There is a chronic proximal right humerus fracture. There is degenerative change in both shoulders. IMPRESSION: Mild atelectasis in the right lung and worsening left lung pneumonia or atelectasis. Reviewed, Interpreted and Dictated by Sang Herzog III, MD Transcribed by Gisel Fleming Authenticated and [facility]
--- NOTE | 2022-03-28 08:13 | HMH.ACPN2 ---
<Edie Sparks - Last Filed: 03/28/22 08:13> Internal Medicine - PN: Subj *Date: 03/28/22 *Time: 08:13 Interval history: pt staters she is doing well this AM; contnues with cough productive of blood tinged sputum. some SOB; O2 sats 98% on RA; denies CP; She is hungry and is enjoying her breakfast; Pure wick in place. H&H 8.3/25.8; + blood culture with pending ID Exam Vital signs and Labs for Last 24 Hours: Temp Pulse Resp BP Pulse Ox 98.4 F 58 L 17 118/49 L 99 03/28/22 07:44 03/28/22 07:44 03/28/22 07:44 03/28/22 07:44 03/28/22 07:44 Laboratory Results - last 24 hr 03/27/22 11:12: POC Glucose 189 H 03/27/22 16:40: POC Glucose 187 H 03/28/22 06:30: WBC 4.9 D, RBC 2.72 L, Hgb 8.3 L, Hct 25.8 L, MCV 94.8, MCH 30.4, MCHC 32.1, RDW 14.9, Plt Count 217, MPV 9.8, Neut % (Auto) 48.9, Lymph % (Auto) 38.1, Green % (Auto) 10.3 H, Eos % (Auto) 1.9, Baso % (Auto) 0.8, Neut # (Auto) 2.4, Lymph # (Auto) 1.9, Green # (Auto) 0.5, Eos # (Auto) 0.1, Baso # (Auto) 0.0 03/28/22 06:30: Sodium 139, Potassium 3.6, Chloride 111 H, Carbon Dioxide 25, Anion Gap 6.6, BUN 21 H, Creatinine 1.00, Estimated Creat Clear 71, Estimated GFR 53 L, Est GFR ( Amer) 64, Glucose 197 H, Calcium 8.6 I & O for Last 24 hours: Intake & Output 03/25/22 03/26/22 03/27/22 03/28/22 11:59 11:59 11:59 11:59 Intake Total 600 / 600 1000 / 1000 1234 / 1234 1320 / 1320 Output Total 550 / 1000 1450 / 1450 550 / 550 550 / 550 Balance 50 / -400 -450 / -450 684 / 684 770 / 770 Weight 229 lb 4.492 oz 221 lb 6.4 oz 227 lb 9.6 oz - Constitutional no acute distress Comments: sitting up in bed feeding herself breakfast - *Routine Respiratory Exam Present: diminished air movement (on the right) - *Routine Cardiovascular Exam Present: RRR - *Routine Abdominal Exam Present: soft, normoactive bowel sounds, obese. Absent: tenderness - *Routine Extremities Exam Present: edema. Absent: calf tenderness - *Routine Neurological Exam Present: alert, oriented X3. Absent: normal speech (somewhat slow) Assessment and Plan (1) Altered mental status Status: Acute Qualifiers: Altered mental status type: unspecified Qualified Code(s): R41.82 - Altered mental status, unspecified Category: Medical Code(s): R41.82 - Altered mental status, unspecified (2) NAFLD (nonalcoholic fatty liver disease) Status: Chronic Category: Medical Code(s): K76.0 - Fatty (change of) liver, not elsewhere classified (3) Hyperammonemia Status: Acute Category: Medical Code(s): E72.20 - Disorder of urea cycle metabolism, unspecified (4) Acute hepatic encephalopathy Status: Acute Category: Medical Code(s): K72.00 - Acute and subacute hepatic failure without coma (5) Lower GI bleed Status: Acute Category: Medical Code(s): K92.2 - Gastrointestinal hemorrhage, unspecified (6) CAD (coronary artery disease) Status: Chronic Category: Medical Code(s): I25.10 - Atherosclerotic heart disease of [place] coronary artery without angina pectoris (7) Diabetes mellitus Status: Chronic Category: Medical Code(s): E11.9 - Type 2 diabetes mellitus without complications (8) Hypertension Status: Chronic Category: Medical Code(s): I10 - Essential (primary) hypertension (9) Hypothyroid Status: Chronic Category: Medical Code(s): E03.9 - Hypothyroidism, unspecified (10) Blood loss anemia Status: Acute Category: Medical Code(s): D50.0 - Iron deficiency anemia secondary to blood loss (chronic) - Assessment and plan all Dx Assessment and Plan for all problems:: will repeat CXR <Harry Cotter - Last Filed: 03/28/22 21:24> Internal Medicine - PN: Subj *Date: 03/28/22 *Time: 21:22 Exam Vital signs and Labs for Last 24 Hours: Temp Pulse Resp BP Pulse Ox 98.9 F 65 17 134/51 L 99 03/28/22 19:55 03/28/22 19:55 03/28/22 15:18 03/28/22 19:55 03/28/22 19:55 Laboratory Results - last 24
--- NOTE | 2022-03-28 09:41 | PC.NURSE ---
Called and spoke with the staff at [facility] in regards to Mrs. Sanchez dentures. They stated that her dentures are in her room and I have relayed that to her.
--- NOTE | 2022-03-28 10:42 | PC.NURSE ---
Spoke w/ Gail @ Dr. Cotter's office at this time to make him aware pt's cxr is back and appears worse.
[2022-03-28 11:38] LABS: POC Glucose,Bedside 191 (70-110)
[2022-03-28 12:34] LABS: POC Glucose,Bedside 337 (70-110)
--- NOTE | 2022-03-28 13:55 | DIET.NUTRFU ---
Spoke to [facility], patient had concerns about diet and meats hard to chew at times. Patient willing to try chopped meat to see if that increases amount consumed, [facility] was notified.
--- NOTE | 2022-03-28 14:29 | PC.NURSE ---
rounded on patient. she asked about why she was spitting blood with her mucous. patient had ng tube a couple of days ago that caused a lot of bleeding. she had swallowed quite a bit and still had some irritation of nasal passages. feels somewhat nauseous. provided with blue bag. patient visiting with family. no other concerns or needs noted.
--- NOTE | 2022-03-28 14:59 | HMH.SLDYSPHA ---
Speech & Language Evaluation Speech/Language Dysphagia Evaluation Start: 03/28/22 14:38 Freq: ONCE Status: Active Protocol: Document 03/28/22 14:38 PAUL (Rec: 03/28/22 14:59 CWHARDY [id number]) Dysphagia Assess/Goals/Plan Assessment Date of Evaluation: 03/28/22 Evaluation Type Initial Certification Assessment/Problems possible aspiration pneumonia per MD order. Does Patient Qualify for Service No Qualify/Failure Comment Based on the results of the CSE, pt does not require futher skilled ST services at this time. Recommendations PHYSICIAN CERTIFICATION: The specified therapy services are required, authorized, and reviewed every 30 days. Diet Recommendations Mechanical Soft SL Swallow Guidelines Eat at slow rate,Reflux precautions Dysphagia Swallow Precautions/Strategies Sitting Upright (90 deg),Small Bites and Sips Place Food on Either side of Mouth Comment Pt would benefit from supervision during meals to assist with pacing. Plan Pt/Guardian verbally ack understanding Yes of dx/prognosis/goals Pt/Guardian verbally ack understanding Yes of/consent to tx prog G -code Required No Education Instructions provided Results of the CSE and diet recommendations were communicated to the pt who expressed understanding. Pt/Caregiver able to recall information Able to recall/restate Reinforcement needed No Speech & Language HPI History Present Illness Description of Patient Problem Pt is an 81 y.o. female presenting to [facility] from assisted due to altered mental status. Pt has a history of hypertenstion, UTI, anxiety, congestive heart failure, CVA, DM2, and GERD. Pt has a productive cough and chest x- ray showed left lung pneumonia and possible bilateral atelectasis. Pt is on RA with SOA. Pt is currently on a regular diet with thin liquids . Rehab Services Assessed Speech therapy Is this evaluation r/t stroke? No Language Primary Language [place] General Information General Current Food Consistancy Regular,Thin Liquids Dentition
--- NOTE | 2022-03-28 15:58 | CARE MANAGER ---
Referral faxed to [facility], nurse came and met with patient and son this morning. Patient will be admitted into hospice care once discharged back to [facility].
--- NOTE | 2022-03-28 18:23 | PC.NURSE ---
Pt alert and oriented x 4. Pt has had x 1 episode of nausea this shift and did have an XL BM. Pt has been awake this shift and has no c/o at this time. VSS at this time. CB in reach.
[2022-03-28 21:58] LABS: POC Glucose,Bedside 360 (70-110)
[2022-03-29] VITALS (29 sets, daily range): BP systolic 121–142; BP diastolic 32–60; PULSE 60–75; RESP 16–18; TEMP 36.7–37.4; O2SAT 96–98; BMI 39.6
--- NOTE | 2022-03-29 04:24 | PC.NURSE ---
No acute changes. Pt is A&O x3. No complaints stated. Pt has been awake most of night. VSS. No BM this shift. Purewick is in place. Call light within reach. safety measures in place.
[2022-03-29 06:45] LABS: POC Glucose,Bedside 214 (70-110)
[2022-03-29 07:18] LABS: Basophils % 0.4 % (0.1-2.0); Eosinophils # 0.1 K/mm3 (0.0-0.4); Eosinophils % 1.9 % (0.1-12.0); Hematocrit 22.8 % (37.0-47.0); Hemoglobin 7.6 g/dL (12.2-16.2); Lymphocytes # 1.4 K/mm3 (0.7-4.5); Lymphocytes % 22.2 % (10-50); Mean Corpuscular HGB Conc 33.1 g/dL (31.8-35.4); Mean Corpuscular Hemoglobin 30.5 pg (27.0-31.2); Mean Corpuscular Volume 92.1 fl (81-99); Mean Platelet Volume 8.4 fl (7.4-10.4); Monocytes # 0.5 K/mm3 (0.1-1.0); Monocytes % 8.4 % (1.7-9.3); Neutrophils # 4.2 K/mm3 (1.8-7.8); Platelet Count 240 K/mm3 (142-424); Red Blood Count 2.48 M/mm3 (4.20-5.40); Red Cell Distribution Width 14.6 % (11.5-17.5); White Blood Count 6.3 K/mm3 (4.8-10.8)
--- NOTE | 2022-03-29 08:21 | HMH.ACPN2 ---
<Meg Lopez - Last Filed: 03/29/22 08:21> Internal Medicine - PN: Subj *Date: 03/29/22 *Time: 08:21 Interval history: Patient states she is feeling better today. She has a cough but denies any pain. She states she did sleep better last night and she ate her breakfast this morning. Exam Vital signs and Labs for Last 24 Hours: Temp Pulse Resp BP Pulse Ox 98.3 F 70 18 135/54 L 98 03/29/22 04:00 03/29/22 06:22 03/29/22 04:00 03/29/22 04:00 03/29/22 04:00 Laboratory Results - last 24 hr 03/28/22 06:45: POC Glucose 191 H 03/28/22 12:15: POC Glucose 337 H* 03/28/22 21:14: POC Glucose 360 H* 03/29/22 06:29: POC Glucose 214 H 03/29/22 07:00: WBC 6.3 D, RBC 2.48 L, Hgb 7.6 L, Hct 22.8 L, MCV 92.1, MCH 30.5, MCHC 33.1, RDW 14.6, Plt Count 240, MPV 8.4, Neut % (Auto) 67.0, Lymph % (Auto) 22.2, [place] % (Auto) 8.4, Eos % (Auto) 1.9, Baso % (Auto) 0.4, Neut # (Auto) 4.2, Lymph # (Auto) 1.4, [place] # (Auto) 0.5, Eos # (Auto) 0.1, Baso # (Auto) 0.0 I & O for Last 24 hours: Intake & Output 03/26/22 03/27/22 03/28/22 03/29/22 11:59 11:59 11:59 11:59 Intake Total 1000 / 1000 1234 / 1234 1320 / 1320 1070 / 1070 Output Total 1450 / 1450 550 / 550 550 / 550 200 / 200 Balance -450 / -450 684 / 684 770 / 770 870 / 870 Weight 229 lb 4.492 oz 221 lb 6.4 oz 227 lb 9.6 oz 232 lb 8 oz Microbiology Reports for the Last 24 Hours: Microbiology 03/23/22 21:40 Blood Blood Culture - Preliminary Staphylococcus epidermidis 03/23/22 21:40 Blood Blood Culture - Final NO GROWTH AFTER 5 DAYS - Constitutional no acute distress - *Routine Respiratory Exam Present: rales (Bibasilar). Absent: wheezes - *Routine Cardiovascular Exam Present: RRR - *Routine Abdominal Exam Present: soft, normoactive bowel sounds. Absent: tenderness - *Routine Extremities Exam Present: edema (Bilateral lower extremity edema with). Absent: cyanosis, clubbing - *Routine Skin Exam Present: warm. Absent: rash - *Routine Neurological Exam Present: alert, oriented X3 Assessment and Plan (1) Altered mental status Status: Acute Qualifiers: Altered mental status type: unspecified Qualified Code(s): R41.82 - Altered mental status, unspecified Category: Medical Code(s): R41.82 - Altered mental status, unspecified (2) NAFLD (nonalcoholic fatty liver disease) Status: Chronic Category: Medical Code(s): K76.0 - Fatty (change of) liver, not elsewhere classified (3) Hyperammonemia Status: Acute Category: Medical Code(s): E72.20 - Disorder of urea cycle metabolism, unspecified (4) Acute hepatic encephalopathy Status: Acute Category: Medical Code(s): K72.00 - Acute and subacute hepatic failure without coma (5) Lower GI bleed Status: Acute Category: Medical Code(s): K92.2 - Gastrointestinal hemorrhage, unspecified (6) CAD (coronary artery disease) Status: Chronic Category: Medical Code(s): I25.10 - Atherosclerotic heart disease of [place] coronary artery without angina pectoris (7) Diabetes mellitus Status: Chronic Category: Medical Code(s): E11.9 - Type 2 diabetes mellitus without complications (8) Hypertension Status: Chronic Category: Medical Code(s): I10 - Essential (primary) hypertension (9) Hypothyroid Status: Chronic Category: Medical Code(s): E03.9 - Hypothyroidism, unspecified (10) Blood loss anemia Status: Acute Category: Medical Code(s): D50.0 - Iron deficiency anemia secondary to blood loss (chronic) (11) Pneumonia Status: Acute Category: Medical Code(s): J18.9 - Pneumonia, unspecified organism - Assessment and plan all Dx Assessment and Plan for all problems:: Patient is currently on clindamycin and Levaquin. Her H&H has dropped today and she will be given blood. Her mental status has improved. <Harry Cotter - Last Filed: 03/29/22 09:15> Internal Medicine
[2022-03-29 11:55] LABS: POC Glucose,Bedside 261 (70-110)
--- NOTE | 2022-03-29 13:58 | PC.NURSE ---
Addendum entered by Kimber Keane RN 03/29/22 14:00: educated patient on need for iv. no questions or concerns at this time. blood infusing. phone given to patient and call light within reach. no complaints at this time. Original Note: two new ivs placed with ultrasound. 20 in the l ac and 20 in the right upper arm.
--- NOTE | 2022-03-29 18:32 | PC.NURSE ---
Pt has c/o cough and sore throat today. Robitussin ordered per NOV. she has had 2 units of blood infused today, tolerated well, no adverse reactions. 2 20G IVs inserted in bilateral AC's. Pt has had 1 large BM today
[2022-03-29 19:59] LABS: Hemoglobin 9.8 g/dL (12.2-16.2)
[2022-03-30 00:53] LABS: POC Glucose,Bedside 311 (70-110)
[2022-03-30 03:39] VITALS: BP 140/39; PULSE 62; RESP 18; TEMP 37.1; O2SAT 96
--- NOTE | 2022-03-30 04:43 | PC.NURSE ---
Patient rested throughout shift. Patient A&O x4 this shift. Patient H&H responded to 2 units well. Patient only complain is cough gave cough meds per NOV.
[2022-03-30 05:00] VITALS: BMI 40.1
[2022-03-30 06:30] VITALS: PULSE 58; PULSE 60
--- NOTE | 2022-03-30 06:50 | PC.NURSE ---
Patient took to OR. Called sister and made aware per patient request.
--- NOTE | 2022-03-30 07:38 | PC.NURSE ---
rounded on patient. assisted patient with setting up meal tray so she could eat. no questions or concerns at this time.
[2022-03-30 07:59] LABS: Basophils % 0.4 % (0.1-2.0); Eosinophils # 0.1 K/mm3 (0.0-0.4); Eosinophils % 1.7 % (0.1-12.0); Hematocrit 30.1 % (37.0-47.0); Hemoglobin 10.1 g/dL (12.2-16.2); Lymphocytes # 1.7 K/mm3 (0.7-4.5); Lymphocytes % 24.2 % (10-50); Mean Corpuscular HGB Conc 33.6 g/dL (31.8-35.4); Mean Corpuscular Hemoglobin 30.8 pg (27.0-31.2); Mean Corpuscular Volume 91.9 fl (81-99); Mean Platelet Volume 8.2 fl (7.4-10.4); Monocytes # 0.6 K/mm3 (0.1-1.0); Monocytes % 8.1 % (1.7-9.3); Neutrophils # 4.7 K/mm3 (1.8-7.8); Neutrophils % 65.6 % (37.0-80.0); Platelet Count 213 K/mm3 (142-424); Red Blood Count 3.28 M/mm3 (4.20-5.40); Red Cell Distribution Width 14.5 % (11.5-17.5); White Blood Count 7.1 K/mm3 (4.8-10.8)
[2022-03-30 08:00] VITALS: BP 119/46; PULSE 58; RESP 20; TEMP 36.7; O2SAT 95
--- NOTE | 2022-03-30 08:12 | PC.NURSE ---
previous not stating pt was transported to OR was entered on wrong patient. pt is in room resting comfortably at this time.
--- NOTE | 2022-03-30 08:12 | HMH.ACPN2 ---
<Meg Lopez - Last Filed: 03/30/22 08:12> Internal Medicine - PN: Subj *Date: 03/30/22 *Time: 08:12 Interval history: Patient is feeling better today. Denies any pain. Still with a cough. Trying to eat breakfast. States she did sleep last night. Exam Vital signs and Labs for Last 24 Hours: Temp Pulse Resp BP Pulse Ox 98.7 F 60 18 140/39 L 96 03/30/22 03:39 03/30/22 06:30 03/30/22 03:39 03/30/22 03:39 03/30/22 03:39 Laboratory Results - last 24 hr 03/29/22 09:55: Blood Type A Positive, Antibody Screen Negative, Crossmatch (AHG) See Detail 03/29/22 11:37: POC Glucose 261 H 03/29/22 19:47: Hgb 9.8 L D, Hct 29.0 L 03/29/22 21:28: POC Glucose 311 H* 03/30/22 07:50: WBC 7.1, RBC 3.28 L D, Hgb 10.1 L, Hct 30.1 L, MCV 91.9, MCH 30.8, MCHC 33.6, RDW 14.5, Plt Count 213, MPV 8.2, Neut % (Auto) 65.6, Lymph % (Auto) 24.2, [place] % (Auto) 8.1, Eos % (Auto) 1.7, Baso % (Auto) 0.4, Neut # (Auto) 4.7, Lymph # (Auto) 1.7, [place] # (Auto) 0.6, Eos # (Auto) 0.1, Baso # (Auto) 0.0 I & O for Last 24 hours: Intake & Output 03/27/22 03/28/22 03/29/22 03/30/22 11:59 11:59 11:59 11:59 Intake Total 1234 / 1234 1320 / 1320 1430 / 1430 1120 / 1120 Output Total 550 / 550 550 / 550 400 / 400 880 / 880 Balance 684 / 684 770 / 770 1030 / 1030 240 / 240 Weight 221 lb 6.4 oz 227 lb 9.6 oz 232 lb 8 oz 235 lb 1.01 oz Microbiology Reports for the Last 24 Hours: Microbiology 03/29/22 11:38 Sputum - Expectorated Sputum Gram Stain - Final 03/29/22 11:38 Sputum - Expectorated Sputum Sputum Culture - Preliminary 03/23/22 21:40 Blood Blood Culture - Preliminary Staphylococcus epidermidis - Constitutional no acute distress - *Routine Respiratory Exam Present: rhonchi, wheezes - *Routine Cardiovascular Exam Present: RRR - *Routine Abdominal Exam Present: soft, normoactive bowel sounds. Absent: tenderness - *Routine Extremities Exam Present: edema (trace in hands and LE's). Absent: cyanosis, clubbing - *Routine Skin Exam Comments: better color today - *Routine Neurological Exam Present: alert, oriented X3 Assessment and Plan (1) Altered mental status Status: Acute Qualifiers: Altered mental status type: unspecified Qualified Code(s): R41.82 - Altered mental status, unspecified Category: Medical Code(s): R41.82 - Altered mental status, unspecified (2) NAFLD (nonalcoholic fatty liver disease) Status: Chronic Category: Medical Code(s): K76.0 - Fatty (change of) liver, not elsewhere classified (3) Hyperammonemia Status: Acute Category: Medical Code(s): E72.20 - Disorder of urea cycle metabolism, unspecified (4) Acute hepatic encephalopathy Status: Acute Category: Medical Code(s): K72.00 - Acute and subacute hepatic failure without coma (5) Lower GI bleed Status: Acute Category: Medical Code(s): K92.2 - Gastrointestinal hemorrhage, unspecified (6) CAD (coronary artery disease) Status: Chronic Category: Medical Code(s): I25.10 - Atherosclerotic heart disease of [place] coronary artery without angina pectoris (7) Diabetes mellitus Status: Chronic Category: Medical Code(s): E11.9 - Type 2 diabetes mellitus without complications (8) Hypertension Status: Chronic Category: Medical Code(s): I10 - Essential (primary) hypertension (9) Hypothyroid Status: Chronic Category: Medical Code(s): E03.9 - Hypothyroidism, unspecified (10) Blood loss anemia Status: Acute Category: Medical Code(s): D50.0 - Iron deficiency anemia secondary to blood loss (chronic) (11) Pneumonia Status: Acute Category: Medical Code(s): J18.9 - Pneumonia, unspecified organism - Assessment and plan all Dx Assessment and Plan for all problems:: H&H is stable this am. Still awaiting sputum culture results. Patient is improving. <Harry Cotter - Last Filed: 04/17/22 00:02> Internal Medicine - PN:
--- NOTE | 2022-03-30 08:31 | HMH.DCSUM ---
General - General Admission date:: 03/24/22 <Harry Cotter - 04/17/22 21:51> 03/24/22 <Meg Lopez - 03/30/22 08:41> Discharge date: 03/30/22 <Meg Lopez - 03/30/22 08:41> HPI HPI: Ms. Moctezuma is an 81-year-old white female who is a resident of [facility] and was sent to the ER because of rectal bleeding and altered mental status. 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 She has also been worked up for rectal bleeding with most recent colonoscopy in September 2021 showing diverticulosis. She is on Plavix for coronary artery disease as well. In the emergency room she was found to be hypertensive and required IV labetalol. Her ammonia level was elevated at 200. White blood cell count normal. UA unremarkable. Head CT showed nothing acute. She has been admitted for further observation and treatment with IV fluids and monitoring of her hemoglobin. Blood pressure has been stable since admission to the floor <Meg Lopez - 03/30/22 08:41> Hospital Course Hospital Course: The patient was admitted and it was felt her altered mental status was likely from her elevated ammonia due to nonalcoholic fatty liver disease. She was started on IV hydration and her lactulose and Xifaxan were resumed. GI bleeding was likely related to her diverticulosis and her Plavix was held. Her blood pressure improved and her UTI from the previous admission had resolved. Her ammonia level did improve with IV fluids. She was initially unable to take the lactulose or Xifaxan due to her mental status. Dr. Cotter spoke with patient's family about an NG tube to administer the medications and they were agreeable. She continued to be poorly responsive. She had some bloody drainage through the nares and from the stomach after placement of the NG tube. She did begin becoming more alert on 03/27/2022. She was clearing mucus out of the back of her throat which was blood-tinged and nursing reported a black tarry stool with questionable fresh red blood. Her speech became more clear and she was able to speak in full sentences. Her NG tube was removed and she was started on full liquids. Her ammonia normalized. She had a repeat chest x-ray on 03/28/2022 which showed a left lung pneumonia versus atelectasis. She was started on Levaquin and clindamycin. Her oxygen was stable on room air, but she continued with a cough productive of blood-tinged sputum. The family did meet with hospice regarding the patient's care and decided to engage in their services. By 03/29/2022, she was feeling better and was able to eat. She still had a cough. Her H&H had declined to 7.6 and 22.8, therefore she was given 2 units of packed red blood cells. Her blood culture returned positive for staph epidermidis. By 03/30/2022 she had continued to improve. Her H&H stabilized. Her sputum culture is still pending. She was stable to be discharged back to the long-term on continued Levaquin for her pneumonia. She will need to be having 2-3 soft stools daily and she will be continued on her Xifaxan and lactulose. <Meg Lopez - 03/30/22 08:41> Objective Vital signs: Temp Pulse Resp BP Pulse Ox 98.1 F 73 20 119/46 L 95 03/30/22 08:00 03/30/22 09:26 03/30/22 08:00 03/30/22 08:00 03/30/22 08:00 <Harry Cotter - 04/17/22 21:51> Temp Pulse Resp BP Pulse Ox 98.7 F 60 18 140/39 L 96 03/30/22 03:39 03/30/22 06:30 03/30/22 03:39 03/30/22 03:39 03/30/22 03:39 <Meg Lopez - 03/30/22 08:41> Narrative: - Constitutional no acute distress - *Routine Respiratory Exam Present: rhonchi, wheezes - *Routine Cardiovascular Exam Present: RRR - *Routine Abdominal Exam Present: soft, normoactive bowel sounds. Absent: tenderness - *Routine Extremities Exam Present: edema (trace in hands an
--- NOTE | 2022-03-30 08:38 | PC.NURSE ---
DISCHARGE ORDER ENTERED, PACKET PRINTED, PT INFORMED OF DC. AWAITING DC VALERIEY TO CALL REPORT TO LONG TERM.
--- NOTE | 2022-03-30 08:49 | PC.NURSE ---
patient complaint patient complained of pain. I took a look at the spot she was complaining about. The brief had been put on too tight. I loosened it and checked on her about 15 mins later and she said it was starting to hurt less. [id number] 03/30/2022 Luz Pike
--- NOTE | 2022-03-30 09:18 | PC.NURSE ---
CALLED REPORT TO BETH AT [facility].
--- NOTE | 2022-03-30 09:24 | PC.NURSE ---
0924-estill ems notified of pt transfer
[2022-03-30 09:26] VITALS: PULSE 71; PULSE 73
--- NOTE | 2022-03-30 09:49 | PC.NURSE ---
patient ready for transport Kim and I got patient cleaned up and ready to roll. Her belongings are in a bag on her bed with her. [id number] 03/30/2022 Luz Pike SRNA
[2022-03-30 16:58] LABS: POC Glucose,Bedside 209 (70-110)
--- NOTE | 2022-04-03 13:50 | CARE MANAGER ---
Spoke with patient's son, Colton, who states his mom is doing well. She is somewhat emotional, but seems to be lucid. Denies any questions or concerns.
== END 2022-03-30 10:40 | disposition hospice, inpatient (51) | DRG 441 ==
LOC: ER 20:36 → 2ND 03-24 08:43
PROVIDERS: Admitting Provider Family Medicine; Emergency Provider Emergency Medicine; PCP Family Medicine; Visit Provider Family Medicine
DX: K72.00 Acute and subacute hepatic failure without coma (principal); J18.9 Pneumonia, unspecified organism; K92.2 Gastrointestinal hemorrhage, unspecified; E72.20 Disorder of urea cycle metabolism, unspecified; D62 Acute posthemorrhagic anemia; I10 Essential (primary) hypertension; K76.0 Fatty (change of) liver, not elsewhere classified; I25.10 Atherosclerotic heart disease of native coronary artery without angina pectoris; E11.9 Type 2 diabetes mellitus without complications; E03.9 Hypothyroidism, unspecified; Z79.4 Long term (current) use of insulin; Z51.5 Encounter for palliative care
CPT/HCPCS: 36415; 70450; 71045; 80048; 80053; 81001; 82140; 82272; 82962; 83605; 83735; 84484; 85014; 85018; 85025; 85610; 85730; 86140; 86850; 87040; 87070; 87077; 87086; 87186; 87205; 92610; 93798; 94640; 99285; C9803; G0328; J1956; J2405; P9016; U0003; U0005

== ENCOUNTER 2022-04-28 11:53 | Emergency (ER) | payer OTHER, SELFPAY ==
[2022-04-28 11:51] VITALS: BP 117/42; PULSE 60; RESP 16; TEMP 36.9; O2SAT 96; BMI 35.7
[2022-04-28 12:00] VITALS: BP 113/45; PULSE 58; O2SAT 94
--- NOTE | 2022-04-28 12:32 | PC.NURSE ---
helped pt to bedside toilet, pt had a large loose, bowel movement
--- NOTE | 2022-04-28 12:35 | HMH.EDGENADL ---
ED Disposition Clinical Impression: Internal hemorrhoids Disposition: Home, Self-Care Condition on Discharge: Good Additional Instructions: Your laboratory studies are relatively stable. The blood in your stool is likely from an internal hemorrhoid that is bleeding. This will likely continue to happen as you take lactulose regularly so I recommend considering seeing a surgeon for possible repair of these to see if this will help with your symptoms. Referrals: Harry Cotter MD [Primary Care Provider] - - Critical Care Critical Care Time: No Attestation: On 04/28/22, the high probability of a clinically significant, sudden or life threatening deterioration of the following system(s) required my full and direct attention, intervention and personal management. The time I documented below is in addition to time spent performing reported procedures but includes the following listed in this critical care notation. Medical Decision Making - Wojciech Inquiry Pt receiving controlled substance: No Wojciech was queried for this patient: No Vital Signs: 04/28/22 11:51 04/28/22 12:00 04/28/22 14:29 Temperature 98.4 F Temperature Source Oral Pulse Rate 58 L 68 Pulse Rate [Right Radial] 60 Respiratory Rate 16 14 Blood Pressure 113/45 L 131/48 L Blood Pressure [Right Arm] 117/42 L Blood Pressure Mean 59 Blood Pressure Mean [Right Arm] 67 Blood Pressure Source [Right Arm] Automatic Cuff Blood Pressure Position [Right Arm] Sitting 02 Sat by Pulse Oximetry 96 94 L 97 Oxygen Delivery Method Room Air - Lab Data Lab Results 04/28/22 12:47: Stool Occult Blood Positive A 04/28/22 13:32: WBC 9.6, RBC 3.12 L, Hgb 9.5 L, Hct 28.0 L, MCV 89.9, MCH 30.3, MCHC 33.7, RDW 14.6, Plt Count 264, MPV 7.6, Neut % (Auto) 72.6, Lymph % (Auto) 20.0, [place] % (Auto) 5.3, Eos % (Auto) 1.8, Baso % (Auto) 0.3, Neut # (Auto) 7.0, Lymph # (Auto) 1.9, [place] # (Auto) 0.5, Eos # (Auto) 0.2, Baso # (Auto) 0.0 04/28/22 13:32: Sodium 142, Potassium 4.5, Chloride 111 H, Carbon Dioxide 28, Anion Gap 7.5, BUN 20 H, Creatinine 1.10 H, Estimated Creat Clear 61, Estimated GFR 48 L, Est GFR ( Amer) 58 L, Glucose 126 H, Calcium 9.1, Total Bilirubin < 0.1 L, AST 29, ALT 20, Alkaline Phosphatase 143 H, Total Protein 6.1 L, Albumin 3.2 L, Globulin 2.9, Albumin/Globulin Ratio 1.1 Result diagrams: 04/28/22 13:32 04/28/22 13:32 Orders (Tests/Meds): ED MEDICATIONS Generic Name Dose Route Start Last Admin Trade Name Freq PRN Reason Stop Dose Admin Sodium Chloride 10 ml 04/28/22 12:04 Sodium Chloride 0.9% 10ml Flush Syringe IV 05/28/22 12:03 NEEDED PRN Maintain IV Site Medical Decision Narrative: In review this is a 81-year-old female who presents with concern for blood in her stool. Hemodynamically stable and nontoxic-appearing. Patient did have a bowel movement while here. It is diarrhea that may be potentially has a small bright red blood tinge. Her examination was pertinent for internal and external hemorrhoids. With her also taking lactulose it is likely that she has irritated some internal hemorrhoids and has been intermittently bleeding. Her laboratory studies were pertinent for anemia but it is around her baseline anemia. She does have a chronically elevated BUN which is also consistent with possible GI bleed but it is not elevated from her normal baseline. Her Hemoccult was positive again reinforcing that some GI bleed is happening. Her vitals are relatively stable and with her labs being unchanged I think it is reasonable to continue with her course of action and close follow-up with her PCP. I also talked to her about following up with the surgeon as I think that her bleeding today is being caused by internal hemorrhoids and she likely needs these repaired to keep them from bleeding anymore. She voiced understanding. At this point stable for discharge. Return precautions given. General Adult H
--- NOTE | 2022-04-28 12:40 | PC.NURSE ---
DR. KRAMER PAGED AT THIS TIME
--- NOTE | 2022-04-28 12:42 | PC.NURSE ---
ED SPEAKING WITH DR. KRAMER
--- NOTE | 2022-04-28 12:48 | PC.NURSE ---
Lab is going to come draw labs. Spoke with Celestina
[2022-04-28 12:52] LABS: Occult Blood,Stool Positive (Negative)
--- NOTE | 2022-04-28 13:09 | PC.NURSE ---
[facility] to called to check on pt
--- NOTE | 2022-04-28 13:30 | PC.NURSE ---
Lab at bedside
--- NOTE | 2022-04-28 13:43 | PC.NURSE ---
Daughter ray called to check on pt condition.
[2022-04-28 14:05] LABS: Basophils % 0.3 % (0.1-2.0); Eosinophils # 0.2 K/mm3 (0.0-0.4); Eosinophils % 1.8 % (0.1-12.0); Hemoglobin 9.5 g/dL (12.2-16.2); Lymphocytes # 1.9 K/mm3 (0.7-4.5); Mean Corpuscular HGB Conc 33.7 g/dL (31.8-35.4); Mean Corpuscular Hemoglobin 30.3 pg (27.0-31.2); Mean Corpuscular Volume 89.9 fl (81-99); Mean Platelet Volume 7.6 fl (7.4-10.4); Monocytes # 0.5 K/mm3 (0.1-1.0); Monocytes % 5.3 % (1.7-9.3); Neutrophils % 72.6 % (37.0-80.0); Platelet Count 264 K/mm3 (142-424); Red Blood Count 3.12 M/mm3 (4.20-5.40); Red Cell Distribution Width 14.6 % (11.5-17.5); White Blood Count 9.6 K/mm3 (4.8-10.8)
[2022-04-28 14:09] LABS: Alanine Aminotransferase 20 U/L (12-78); Albumin Level 3.2 g/dl (3.5-5.0); Albumin/Globulin Ratio 1.1 (1.1-1.8); Alkaline Phosphatase 143 U/L (38-126); Anion Gap 7.5 mEq/L (5-15); Aspartate Amino Transferase 29 U/L (14-36); Blood Urea Nitrogen 20 mg/dl (7-17); Calcium 9.1 mg/dl (8.4-10.2); Carbon Dioxide 28 mmol/L (22.0-30.0); Chloride 111 mmol/L (98-107); Creatinine Clearance Estimated 61 mL/min (50-200); Estimated Glomerular Filt Rate 48 ml/min (>60); GFR (African American) 58 ML/MIN (>60); Globulin 2.9 g/dL (1.3-3.2); Glucose 126 mg/dl (74-100); Potassium 4.5 mmoL/L (3.5-5.1); Sodium 142 mmol/L (136-145); Total Protein,Serum 6.1 g/dl (6.3-8.2)
[2022-04-28 14:21] LABS: Bilirubin,Total < 0.1 mg/dl (0.2-1.3)
[2022-04-28 14:29] VITALS: BP 131/48; PULSE 68; RESP 14; O2SAT 97
--- NOTE | 2022-04-28 15:00 | PC.NURSE ---
Contacted Adan for transfer back to [facility].
[2022-04-28 15:22] VITALS: BP 137/46; PULSE 67; O2SAT 98
--- NOTE | 2022-04-28 15:59 | PC.NURSE ---
Called report to [facility]
[2022-04-28 16:01] VITALS: BP 129/76; PULSE 84; RESP 16; TEMP 36.7; O2SAT 97
== END 2022-04-28 16:02 | disposition home or self-care (01) ==
PROVIDERS: Emergency Provider Student in an Organized Health Care Education/Training Program; PCP Family Medicine
DX: K64.0 First degree hemorrhoids (principal)
CPT/HCPCS: 36415; 80053; 82272; 85025; 99282; G0328

== ENCOUNTER → 2022-07-18 14:49 | Outpatient (CLI) | payer MEDICARE, OTHER, SELFPAY ==
[2022-07-18 14:54] LABS: MANUAL DIFFERENTIAL MANUAL DIFFERENTIAL (MANUAL DIFF)
[2022-07-18 15:24] LABS: Basophils % 0.4 % (0.1-2.0); Eosinophils # 0.1 K/mm3 (0.0-0.4); Hematocrit 30.3 % (37.0-47.0); Hemoglobin 9.3 g/dL (12.2-16.2); Lymphocytes # 1.3 K/mm3 (0.7-4.5); Lymphocytes % 21.8 % (10-50); Mean Corpuscular HGB Conc 30.6 g/dL (31.8-35.4); Mean Corpuscular Hemoglobin 29.5 pg (27.0-31.2); Mean Corpuscular Volume 96.6 fl (81-99); Mean Platelet Volume 8.2 fl (7.4-10.4); Monocytes # 0.5 K/mm3 (0.1-1.0); Monocytes % 7.7 % (1.7-9.3); Neutrophils # 4.1 K/mm3 (1.8-7.8); Platelet Count 383 K/mm3 (142-424); Red Blood Count 3.14 M/mm3 (4.20-5.40); Red Cell Distribution Width 16.3 % (11.5-17.5); White Blood Count 6.1 K/mm3 (4.8-10.8)
[2022-07-18 15:44] LABS: Alanine Aminotransferase 19 U/L (12-78); Alkaline Phosphatase 142 U/L (38-126); Anion Gap 14.6 mEq/L (5-15); Aspartate Amino Transferase 27 U/L (14-36); Blood Urea Nitrogen 16 mg/dl (7-17); Calcium 8.4 mg/dl (8.4-10.2); Carbon Dioxide 24 mmol/L (22.0-30.0); Chloride 108 mmol/L (98-107); Estimated Glomerular Filt Rate 43 ml/min (>60); GFR (African American) 52 ML/MIN (>60); Glucose 111 mg/dl (74-100); Potassium 4.6 mmoL/L (3.5-5.1); Sodium 142 mmol/L (136-145); Total Protein,Serum 5.6 g/dl (6.3-8.2)
[2022-07-18 15:51] LABS: Bilirubin,Total < 0.1 mg/dl (0.2-1.3)
[2022-07-18 16:00] LABS: Free T4 (Free Thyroxine) 1.37 ng/dl (0.78-2.19)
[2022-07-18 16:13] LABS: Thyroid Stimulating Hormone 0.74 uIU/mL (0.465-4.68)
[2022-07-18 16:29] LABS: Bilirubin,Direct 0.1 mg/dl (0.0-0.4)
[2022-07-18 16:42] LABS: Eosinophils % 1 % (0-3); Lymphocytes % 22 % (10-50); Monocytes % 8 % (2-9); Neutrophils % 69 % (42-76); Ovalocytes 1+; Platelet Estimate Normal; Total Cells Counted 100
== END ==
PROVIDERS: PCP Emergency Medicine; Visit Provider Nurse Practitioner
DX: E13.69 Other specified diabetes mellitus with other specified complication (principal); E78.5 Hyperlipidemia, unspecified; I10 Essential (primary) hypertension; I25.10 Atherosclerotic heart disease of native coronary artery without angina pectoris; I48.91 Unspecified atrial fibrillation; R06.00 Dyspnea, unspecified; R60.9 Edema, unspecified; Z95.5 Presence of coronary angioplasty implant and graft; Z79.4 Long term (current) use of insulin
CPT/HCPCS: 36415; 80048; 80076; 84439; 84443; 85007; 85014; 85018; 85048; 85049

== ENCOUNTER → 2022-07-26 15:38 | Outpatient (CLI) | payer MEDICARE, OTHER, SELFPAY ==
[2022-07-26 16:23] LABS: Basophils # 0.1 K/mm3 (0-0.2); Basophils % 0.5 % (0.1-2.0); Eosinophils # 0.2 K/mm3 (0.0-0.4); Eosinophils % 2.4 % (0.1-12.0); Hemoglobin 8.2 g/dL (12.2-16.2); Lymphocytes # 2.2 K/mm3 (0.7-4.5); Lymphocytes % 21.9 % (10-50); Mean Corpuscular HGB Conc 29.2 g/dL (31.8-35.4); Mean Corpuscular Hemoglobin 27.5 pg (27.0-31.2); Mean Corpuscular Volume 94.1 fl (81-99); Mean Platelet Volume 7.7 fl (7.4-10.4); Monocytes # 0.6 K/mm3 (0.1-1.0); Monocytes % 6.2 % (1.7-9.3); Neutrophils # 6.9 K/mm3 (1.8-7.8); Neutrophils % 69.1 % (37.0-80.0); Platelet Count 393 K/mm3 (142-424); Red Blood Count 2.97 M/mm3 (4.20-5.40); Red Cell Distribution Width 15.6 % (11.5-17.5); White Blood Count 9.9 K/mm3 (4.8-10.8)
[2022-07-26 16:41] LABS: Chloride 107 mmol/L (98-107)
[2022-07-26 16:42] LABS: Potassium 4.5 mmoL/L (3.5-5.1); Sodium 143 mmol/L (136-145)
[2022-07-26 16:45] LABS: Anion Gap 13.5 mEq/L (5-15); Blood Urea Nitrogen 15 mg/dl (7-17); Calcium 8.5 mg/dl (8.4-10.2); Carbon Dioxide 27 mmol/L (22.0-30.0); Estimated Glomerular Filt Rate 43 ml/min (>60); GFR (African American) 52 ML/MIN (>60); Glucose 139 mg/dl (74-100)
== END ==
PROVIDERS: PCP Emergency Medicine; Visit Provider Physician Assistant
DX: E13.69 Other specified diabetes mellitus with other specified complication (principal); E78.5 Hyperlipidemia, unspecified; I11.0 Hypertensive heart disease with heart failure; I21.4 Non-ST elevation (NSTEMI) myocardial infarction; I25.10 Atherosclerotic heart disease of native coronary artery without angina pectoris; I48.91 Unspecified atrial fibrillation; I50.33 Acute on chronic diastolic (congestive) heart failure; R06.00 Dyspnea, unspecified; R60.9 Edema, unspecified; Z95.5 Presence of coronary angioplasty implant and graft
CPT/HCPCS: 36415; 80048; 85025

== ENCOUNTER 2022-08-15 19:25 | Observation (INO) | payer MEDICARE, OTHER, SELFPAY ==
[2022-08-15] VITALS (8 sets, daily range): BP systolic 110–144; BP diastolic 46–82; PULSE 82–89; RESP 16; TEMP 37.1; O2SAT 97–100; BMI 31.3
--- NOTE | 2022-08-15 19:30 | XR_ITS ---
PROCEDURE INFORMATION: Exam: XR Chest Exam date and time: 08/15/2022 8:00 PM Age: 81 years old Clinical indication: Other: Altered mental status; Additional info: AMS TECHNIQUE: Imaging protocol: Radiologic exam of the chest. Views: 1 view. COMPARISON: CR XR CHEST PORTABLE 03/28/2022 8:38 AM FINDINGS: Lungs: Scarring in the bilateral lung bases. Pleural spaces: Unremarkable. No pleural effusion. No pneumothorax. Heart/Mediastinum: Heart is enlarged. Vasculature: Calcification of thoracic aorta. Bones/joints: Chronic posttraumatic changes of the bilateral humeral heads. IMPRESSION: Scarring in the lung bases without evidence of acute cardiopulmonary process.
--- NOTE | 2022-08-15 19:30 | CT_ITS ---
PROCEDURE INFORMATION: Exam: CT Head Without Contrast Exam date and time: 08/15/2022 8:39 PM Age: 81 years old Clinical indication: Altered mental status/memory loss; Confusion or disorientation; Patient HX: Patient comes to er frequently with altered mental status. ; Additional info: Am s TECHNIQUE: Imaging protocol: Computed tomography of the head without contrast. Radiation optimization: All CT scans at this facility use at least one of these dose optimization techniques: automated exposure control; mA and/or kV adjustment per patient size (includes targeted exams where dose is matched to clinical indication); or iterative reconstruction. COMPARISON: CT HEAD/BRAIN WO CON 03/24/2022 1:51 AM FINDINGS: Brain: There is a new area of encephalomalacia and CSF attenuation adjacent to the anterior horn of right lateral ventricle measuring approximately 1 cm. This is compatible with a region of infarct which has occurred since the prior exam. Patchy hypoattenuation in the periventricular deep white matter bilaterally. 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 Tiny calcifications in the parietal sulci bilaterally compatible with remote granulomatous disease such as neurocysticercosis. Cerebral ventricles: Enlargement of ventricles, sulci and cisterns bilaterally. Paranasal sinuses: Visualized sinuses are unremarkable. No fluid levels. Mastoid air cells: Visualized mastoid air cells are well aerated. Bones/joints: Unremarkable. No acute fracture. Soft tissues: Unremarkable. Vasculature: Calcification of carotid siphons. IMPRESSION: No evidence of acute intracranial hemorrhage, midline shift or mass effect. New area of encephalomalacia and CSF attenuation adjacent to the anterior horn of right lateral ventricle measuring approximately 1 cm. This is compatible with a region of infarct which has occurred since the prior exam. Cortical atrophy and chronic periventricular microangiopathy. 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
--- NOTE | 2022-08-15 20:47 | ECG_ITS ---
APPROVED REPORT Exam: Resting ECG HR:86 bpm ECG Measurements Heart Rate 86 AXES QRSd 104 QRS -24 QT 399 T 48 QTc 442 Conclusion ATRIAL FIBRILLATION BORDERLINE LEFT AXIS DEVIATION [QRS AXIS < -20] INCOMPLETE RIGHT BUNDLE BRANCH BLOCK [90+ ms QRS DURATION, TERMINAL R IN V1/V2, 40+ ms S IN I/aVL/V4/V5/V6] MODERATE ST DEPRESSION [0.05+ mV ST DEPRESSION] ABNORMAL ECG UNCONFIRMED REPORT Electronically signed by : John Rosado MD 08/16/2022 21:16:10
[2022-08-15 21:33] LABS: Microscopic, Urine URINE MICROSCOPIC (MICROSCOPIC)
[2022-08-15 21:36] LABS: Basophils % 0.6 % (0.1-2.0); Eosinophils % 0.7 % (0.1-12.0); Lymphocytes # 1.9 K/mm3 (0.7-4.5); Lymphocytes % 31.6 % (10-50); Mean Corpuscular HGB Conc 30.2 g/dL (31.8-35.4); Mean Corpuscular Volume 96.1 fl (81-99); Mean Platelet Volume 8.4 fl (7.4-10.4); Monocytes # 0.5 K/mm3 (0.1-1.0); Monocytes % 7.7 % (1.7-9.3); Neutrophils # 3.7 K/mm3 (1.8-7.8); Neutrophils % 59.5 % (37.0-80.0); Platelet Count 444 K/mm3 (142-424); Red Blood Count 2.29 M/mm3 (4.20-5.40); Red Cell Distribution Width 18.6 % (11.5-17.5); White Blood Count 6.2 K/mm3 (4.8-10.8)
[2022-08-15 21:37] LABS: Appearance,Urine CLEAR (Clear); Bilirubin,Urine Negative (Negative); Blood, Urine Negative (Negative); Color,Urine YELLOW (Yellow); Glucose,Urine (UA) Negative (Negative); Ketones,Urine TRACE (Negative); Leukocyte Esterase,Urine Negative (Negative); Nitrate,Urine Negative (Negative); Protein,Urine Negative (Negative); Specific Gravity, Urine 1.015 (1.005-1.030); Urobilinogen,Urine 0.2 EU/dl (0.2)
[2022-08-15 21:41] LABS: Hemoglobin 6.6 g/dL (12.2-16.2)
--- NOTE | 2022-08-15 21:41 | PC.NURSE ---
notified abelardo of critical hgb 6.6
[2022-08-15 21:42] LABS: Alanine Aminotransferase 19 U/L (12-78); Albumin Level 2.8 g/dl (3.5-5.0); Albumin/Globulin Ratio 1.2 (1.1-1.8); Alkaline Phosphatase 171 U/L (38-126); Anion Gap 13.2 mEq/L (5-15); Aspartate Amino Transferase 35 U/L (14-36); Bilirubin,Total 0.3 mg/dl (0.2-1.3); Blood Urea Nitrogen 44 mg/dl (7-17); Calcium 8.6 mg/dl (8.4-10.2); Carbon Dioxide 27 mmol/L (22.0-30.0); Chloride 104 mmol/L (98-107); Creatinine Clearance Estimated 24 mL/min (50-200); Estimated Glomerular Filt Rate 18 ml/min (>60); GFR (African American) 21 ML/MIN (>60); Globulin 2.3 g/dL (1.3-3.2); Glucose 163 mg/dl (74-100); Potassium 4.2 mmoL/L (3.5-5.1); Sodium 140 mmol/L (136-145); Total Protein,Serum 5.1 g/dl (6.3-8.2)
[2022-08-15 21:53] LABS: Troponin I 0.02 ng/ml (0.00-0.034)
--- NOTE | 2022-08-15 22:33 | HMH.EDAMS ---
Discharge Plan Disposition Patient Disposition: Admitted As Inpatient Chief Complaint: Altered Mental Status Clinical Impressions Clinical Impression: CONOR (acute kidney injury), Anemia, Acute hepatic encephalopathy Discharge ED Provider: Jewel Morrow Altered Mental Status HPI General Chief Complaint: Altered Mental Status Stated Complaint: AMS Time Seen by Provider: 08/15/22 20:30 Mode of Arrival: EMS Source of Information: Patient, EMS and Medical Record Limitations: Altered Mental Status Description of Symptoms (Recalled from ER Triage Doc. by RN): skilled nursing reports pt has lab done today and H&H was critical low and pt is now AMS and is normally A&OX4 History of Present Illness HPI narrative: pt with low h/h at [facility] and on xarelto but also with confusion - hx of hepatitic encephalopathy - no fever or rash and no trauma MD complaint: altered mental status Onset (ago): hour(s) Timing confirmed by: other ([facility] ) Severity: moderate Consistency of symptoms: waxing and waning Related Data Home Medications Medication Instructions Recorded Confirmed cyanocobalamin (vitamin B-12) 1,000 mcg PO DAILY Supplement 02/10/18 07/26/22 1,000 mcg tablet (Vitamin B-12) pravastatin 80 mg tablet 80 mg PO HS Cholesterol 02/10/18 07/26/22 calcium carbonate 600 mg-vitamin 1 tab PO DAILY Supplement 02/05/21 07/26/22 D3 20 mcg (800 unit) tablet carvedilol 6.25 mg tablet 6.25 mg PO BID Hypertension 02/05/21 07/26/22 clopidogrel 75 mg tablet 75 mg PO DAILY platelet inhibitor 03/24/21 07/26/22 pantoprazole 40 mg tablet,delayed 40 mg PO DAILY acid reflux 03/31/21 07/26/22 release ropinirole 0.25 mg tablet 0.25 mg PO HS restless leg syndrome 04/10/21 07/26/22 ferrous sulfate 325 mg (65 mg 325 mg PO DAILY anemia 08/16/21 07/26/22 iron) tablet potassium chloride 10 mEq 10 meq PO DAILY Supplement 09/03/21 07/26/22 capsule,extended release acetaminophen 500 mg tablet 500 mg PO Q4HP PRN PAIN/FEVER 10/02/21 07/26/22 albuterol sulfate 2.5 mg/3 mL 2.5 mg inhalation Q4HP PRN 12/05/21 07/26/22 (0.083 %) solution for nebulization Shortness Of Breath spironolactone 25 mg tablet 25 mg PO BID Edema 12/16/21 07/26/22 multivitamin with folic acid 400 1 tab PO DAILY Supplement 12/18/21 07/26/22 mcg tablet fluticasone propionate 50 2 spray intranasal DAILY alleriges 02/26/22 07/26/22 mcg/actuation nasal spray,suspension rifaximin 550 mg tablet 550 mg PO BID HEPATIC 03/14/22 07/26/22 ENCEPHALOPATHY insulin glargine 100 unit/mL 15 units SQ HS Diabetes 03/15/22 07/26/22 subcutaneous solution insulin human U-100 NPH-regulr 14 unit SQ DAILY Diabetes 03/15/22 07/26/22 70-30 mix 100 unit/mL subcutaneous susp ascorbate calcium (vitamin C) 500 500 mg PO DAILY 04/10/22 07/26/22 mg tablet cetirizine 10 mg tablet (All Day 10 mg PO DAILY PRN 04/10/22 07/26/22 Allergy (cetirizine)) levothyroxine 150 mcg tablet 175 mcg PO DAILY hypothyroidism 07/18/22 07/26/22 ondansetron HCl 4 mg tablet 4 mg PO DAILY PRN 07/18/22 07/26/22 Previous Rx's Medication Instructions Recorded lactulose 10 gram/15 mL oral 45 ml PO TID HEPATIC 03/16/22 solution ENCEPHALOPATHY ##0 ranolazine 500 mg tablet,extended 500 mg PO BID #60 tabs 04/10/22 release,12 hr (Ranexa) hydrocortisone acetate 25 mg 25 mg SC DAILY 14 days #14 ea 05/08/22 rectal suppository (Anusol-HC) bumetanide 1 mg tablet 1 mg PO BID Edema #60 tabs 07/18/22 rivaroxaban 15 mg tablet (Xarelto) 15 mg PO DAILY #30 tabs 07/18/22 Allergies Allergy/AdvReac Type Severity Reaction Status Date / Time Iodinated Contrast Media Allergy Intermediate Verified 07/26/22 14:59 naproxen [NAPROXEN] Allergy Mild Verified 07/26/22 14:59 [facility] Medical History Abnormal cardiovascular stress test CAD (coronary artery disease) Chest pain Diabetes mellitus Dizziness Dyspnea Edema Encounter for pre-operative cardiovascular clearance Hyper
[2022-08-15 23:24] LABS: Ammonia 50 umol/L (9-30)
[2022-08-16] VITALS (30 sets, daily range): BP systolic 121–165; BP diastolic 43–70; PULSE 82–94; RESP 16–20; TEMP 36.6–37.1; O2SAT 95–100; BMI 35.2
--- NOTE | 2022-08-16 00:34 | EXP.HP ---
History of Present Illness *Admission Date: 08/16/22 *Reason for visit:: Change in mental status *History of present illness: Ms. Moctezuma is a 81-year-old female with a past medical history of recent GI bleed in 03/2022, history of CAD and PCI placement with drug eluting stents in 11/2021, Atrial Fibrillation on chronic anticoagulation, Diastolic CHF, Non-fatty Liver Disease and history of hepatic encephalopathy, Hypothyroidism and Diabetes Mellitus. She is a resident of a local correction and is under the care of Hospice. She presents to [facility] from the local senior care due to change in mental status, per notes reviewed she is normally oriented x 4. On evaluation in the ER she was found to have a hemoglobin in the 6 range, Ammonia was elevated in the [address] of the head is concerning for a right cerebellum infarct. She is unable to answer any questioning and does not follow commands. The patient will be admitted with initial impression Anemia and Change in mental status. She will be given a blood transfusion, due to previous GI bleed and now hemoglobin again in the 6 range her anticoagulation will be held. She will be given Lactulose for concern of Hepatic Encephalopathy. Her PCP, Dr. Morrow is the ER Physician, she is to transfer back to the [place] after return to her baseline. [facility] Medical History Abnormal cardiovascular stress test CAD (coronary artery disease) Chest pain Chronic kidney disease Diabetes mellitus Dizziness Dyspnea Edema Encounter for pre-operative cardiovascular clearance History of anemia History of transient ischemic attack (TIA) Hyperkalemia Near syncope Family History (Updated 08/16/22 @ 03:51 by Marcia Alicea RN) No significant family history Social History (Updated 08/16/22 @ 03:52 by Marcia Alicea RN) Smoking Status: Never smoker alcohol intake: never substance use type: denies use current occupational status: retired Travel in the last 8 weeks: None household members: none housing: correction current occupational exposures/hazards: No caffeine: No Review of Systems Review of Systems Review of systems:: unable to obtain Review of systems (narrative): Patient does not answer questioning, does not follow commands Meds Home Medications and Allergies Home Medications Medication Instructions Recorded Confirmed Type cyanocobalamin (vitamin B-12) 1,000 mcg PO DAILY Supplement 02/10/18 08/16/22 History 1,000 mcg tablet (Vitamin B-12) pravastatin 80 mg tablet 80 mg PO HS Cholesterol 02/10/18 08/16/22 History calcium carbonate 600 mg-vitamin 1 tab PO DAILY Supplement 02/05/21 08/16/22 History D3 20 mcg (800 unit) tablet carvedilol 6.25 mg tablet 6.25 mg PO BID Hypertension 02/05/21 08/16/22 History clopidogrel 75 mg tablet 75 mg PO DAILY coronary artery 03/24/21 08/16/22 History disease pantoprazole 40 mg tablet,delayed 40 mg PO DAILY acid reflux 03/31/21 08/16/22 History release ropinirole 0.25 mg tablet 0.25 mg PO HS restless leg syndrome 04/10/21 08/16/22 History ferrous sulfate 325 mg (65 mg 325 mg PO DAILY anemia 08/16/21 08/16/22 History iron) tablet potassium chloride 10 mEq 10 meq PO DAILY Supplement 09/03/21 08/16/22 History capsule,extended release acetaminophen 500 mg tablet 500 mg PO Q4HP PRN PAIN/FEVER 10/02/21 08/16/22 History spironolactone 25 mg tablet 25 mg PO BID Edema 12/16/21 08/16/22 History fluticasone propionate 50 2 spray intranasal DAILY alleriges 02/26/22 08/16/22 History mcg/actuation nasal spray,suspension rifaximin 550 mg tablet 550 mg PO BID HEPATIC 03/14/22 08/16/22 History ENCEPHALOPATHY insulin glargine 100 unit/mL 15 units SQ HS Diabetes 03/15/22 08/16/22 History subcutaneous solution insulin human U-100 NPH-regulr 30 unit SQ DAILY Diabetes 03/15/22 08/16/22 History 70-30 mix 100 unit/mL subcutaneous susp
[2022-08-16 01:15] LABS: Coronavirus 19, PCR Not Detected (NotDetected); Influenza A, PCR Not Detected (NotDetected); Influenza B, PCR Not Detected (NotDetected)
[2022-08-16 01:21] LABS: Troponin I 0.03 ng/ml (0.00-0.034)
--- NOTE | 2022-08-16 01:38 | PC.NURSE ---
spoke with daughter Rekha, who lives in [place], to get consent for blood and verification that Mrs. Moctezuma was a DNR, had attempted to call the son, Colton who lives in [place], multiple times, with no answer and no way to leave a voice mail, Rekha stated it was ok to give her mother blood, when asked about DNR status, she stated that her mother wanted everything done, she stated she would talk with her brother and let us know for sure what their mother's code status was, she also stated that her and Colton are both POAs
[2022-08-16 03:02] LABS: Troponin I 0.03 ng/ml (0.00-0.034)
--- NOTE | 2022-08-16 03:15 | PC.NURSE ---
Colton Urrutia, son and POA called back at this time to verify that his mother, Dewayne Moctezuma was a DNR, verified with YANDY Sparks, and Marcia Saeed RN
--- NOTE | 2022-08-16 04:50 | PC.NURSE ---
pt has rested since arriving to floor, first unit of blood currently infusing, remains on room air, 3+ pitting edema noted to BLE
[2022-08-16 05:18] LABS: POC Glucose,Bedside 172 (70-110)
--- NOTE | 2022-08-16 07:20 | EXP.DC.SUM ---
General Admission date:: 08/16/22 HPI HPI HPI: Ms. Moctezuma is a 81-year-old female with a past medical history of recent GI bleed in 03/2022, history of CAD and PCI placement with drug eluting stents in 11/2021, Atrial Fibrillation on chronic anticoagulation, Diastolic CHF, Non-fatty Liver Disease and history of hepatic encephalopathy, Hypothyroidism and Diabetes Mellitus. She is a resident of a local fdc and is under the care of Hospice. She presents to [facility] from the local [facility] due to change in mental status, per notes reviewed she is normally oriented x 4. On evaluation in the ER she was found to have a hemoglobin in the 6 range, Ammonia was elevated in the [address] of the head is concerning for a right cerebellum infarct. She is unable to answer any questioning and does not follow commands. The patient will be admitted with initial impression Anemia and Change in mental status. She will be given a blood transfusion, due to previous GI bleed and now hemoglobin again in the 6 range her anticoagulation will be held. She will be given Lactulose for concern of Hepatic Encephalopathy. Her PCP, Dr. Morrow is the ER Physician, she is to [place] back [place] the [place] after return to her baseline. Hospital Course Hospital Course Hospital Course: 81-year-old female who is a resident of a local [facility] and under the care of Hospice, presents due to acute onset of confusion found to have anemia, CT concerning for right cerebellum infarct, and CONOR, with history of recent GI bleed, was on anticoagulation for chronic A-fib and Plavix with PCI in 11/2021 with drug eluting stents - Anemia: Typed and crossed for 2 units packed red blood cells. Admitted for transfusion. After transfusion, stable for discharge back to fdc with hospice. Discontinuing all anticoagulation. - Encephalopathy CT findings noted With history of Hepatic Encephalopathy, with elevated ammonia Will continue Lactulose, Rifaxamin - Atrial Fibrillation Will hold patient's Xarelto due to concern of another GI bleed with marked anemia Will continue any rate controlling medications - Diabetes: SS insulin - Hypothyroidism: continue home medications Stable for DC to [facility] with hospice after transfusion. Exam Data for Last 24 hours Vital signs and Labs for Last 24 Hours: Temp Pulse Resp BP Pulse Ox 98.3 F 85 17 148/55 H 97 08/16/22 07:00 08/16/22 07:00 08/16/22 07:00 08/16/22 07:00 08/16/22 07:00 Laboratory Results - last 24 hr 08/15/22 21:15: WBC 6.2, RBC 2.29 L, Hgb 6.6 L*, Hct 22.0 L, MCV 96.1, MCH 29.0, MCHC 30.2 L, RDW 18.6 H, Plt Count 444 H, MPV 8.4, Neut % (Auto) 59.5, Lymph % (Auto) 31.6, [place] % (Auto) 7.7, Eos % (Auto) 0.7, Baso % (Auto) 0.6, Neut # (Auto) 3.7, Lymph # (Auto) 1.9, [place] # (Auto) 0.5, Eos # (Auto) 0.0, Baso # (Auto) 0.0 08/15/22 21:15: Sodium 140, Potassium 4.2, Chloride 104, Carbon Dioxide 27, Anion Gap 13.2, BUN 44 H, Creatinine 2.60 H, Estimated Creat Clear 24, Estimated GFR 18 L*, Est GFR ( Amer) 21 L, Glucose 163 H, Calcium 8.6, Total Bilirubin 0.3, AST 35, ALT 19, Alkaline Phosphatase 171 H, Troponin I 0.02, Total Protein 5.1 L, Albumin 2.8 L, Globulin 2.3, Albumin/Globulin Ratio 1.2 08/15/22 21:28: Urine Color Yellow, Urine Appearance Clear, Urine pH 7.0, Ur Specific [place] 1.015, Urine Protein Negative, Urine Glucose (UA) Negative, Urine Ketones Trace, Urine Blood Negative, Urine Nitrate Negative, Urine Bilirubin Negative, Urine Urobilinogen 0.2, Ur Leukocyte Esterase Negative, Urine RBC None, Urine WBC None, Ur Squamous Epith Cells 5-10, Urine Bacteria None 08/15/22 22:35: Blood Type A Positive, Antibody Screen Negative, Crossmatch (AHG) See Detail 08/15/22 22:35: Ammonia 50 H 08/16/22 00:40: Troponin I 0.03 08/16/22 01:00: SARS-CoV-2 (PCR) Not detected, Influenza A Untype (PCR) Not detected, Influenza Type B (PCR) Not detected 08/16/22 02:30: Troponin I 0.03 08/16/22 05:11: POC Gl
--- NOTE | 2022-08-16 07:28 | P.CONPHA_ITS ---
Pharmacy Intervention Comments: Medication reconciliation completed via chart review and MAR from [facility]. -Kait Aquino, PharmD Candidate 2022
--- NOTE | 2022-08-16 07:28 | HMH.PHAINT1 ---
Pharmacy Intervention Comments: Medication reconciliation completed [facility] -Kait Aquino, PharmD Candidate 2022
--- NOTE | 2022-08-16 07:54 | SW/DCPLANNER ---
Addendum entered by Kimber Browning 08/16/22 09:56: Per patient's son (Colton) Hospice services will be revoked during hospital admission but will resume once she returns to [facility]. Patient will return to [facility] today and resume [facility]. Addendum entered by Kimber Browning 08/16/22 07:56: Patient is established with [facility] at [facility]. Original Note: This patient currently resides at [facility] ICF level of care. I will follow up with Shikha at [facility] once discharge date is known.
--- NOTE | 2022-08-16 11:03 | PC.NURSE ---
spoke with . no post transfusion ordered
--- NOTE | 2022-08-16 11:17 | PC.NURSE ---
Called EMS at this time and notified Ron of need for transport back to [facility].
[2022-08-16 13:55] LABS: POC Glucose,Bedside 196 (70-110)
[2022-08-16 19:41] LABS: POC Glucose,Bedside 209 (70-110)
== END 2022-08-16 17:14 | disposition hospice, inpatient (51) ==
LOC: ER 22:27 → 2ND 08-16 00:57
PROVIDERS: Emergency Medicine; Admitting Provider Internal Medicine Adolescent Medicine; Emergency Provider Emergency Medicine; PCP Emergency Medicine; Visit Provider Internal Medicine Adolescent Medicine
DX: D64.9 Anemia, unspecified (principal); G93.40 Encephalopathy, unspecified; N17.9 Acute kidney failure, unspecified; I48.20 Chronic atrial fibrillation, unspecified; E11.9 Type 2 diabetes mellitus without complications; I50.32 Chronic diastolic (congestive) heart failure; E03.9 Hypothyroidism, unspecified; I11.0 Hypertensive heart disease with heart failure; Z79.4 Long term (current) use of insulin; I25.10 Atherosclerotic heart disease of native coronary artery without angina pectoris; Z79.01 Long term (current) use of anticoagulants; Z95.5 Presence of coronary angioplasty implant and graft; Z79.899 Other long term (current) drug therapy
CPT/HCPCS: G0378; 36415; 51702; 70450; 71045; 80053; 81001; 82140; 82962; 84484; 85025; 86850; 93005; 99285; C9803; P9016; U0003; U0005

== ENCOUNTER 2022-09-26 11:03 | Outpatient (CLI) | payer MEDICARE, OTHER, SELFPAY ==
[2022-09-26] VITALS (20 sets, daily range): BP systolic 122–158; BP diastolic 54–86; PULSE 70–79; RESP 18–20; TEMP 36.3–36.4; O2SAT 97–99; BMI 38.2
[2022-09-26 12:03] LABS: Hematocrit 24.2 % (37.0-47.0); Hemoglobin 7.8 g/dL (12.2-16.2)
--- NOTE | 2022-09-26 17:40 | PC.NURSE ---
[id number] report to amrit, grade foreman with [facility], here to transfer pt back to [facility]
== END 2022-09-26 17:44 | disposition home or self-care (01) ==
PROVIDERS: PCP Emergency Medicine; Visit Provider Emergency Medicine
DX: D64.9 Anemia, unspecified (principal)
CPT/HCPCS: 36430; 85014; 85018; 86850; P9016

== ENCOUNTER 2022-09-28 11:26 | Inpatient (IN) | payer MEDICARE, OTHER, SELFPAY ==
[2022-09-28] VITALS (14 sets, daily range): BP systolic 124–178; BP diastolic 54–76; PULSE 74–89; RESP 13–18; TEMP 36.6–37; O2SAT 95–99; BMI 46.0; BMI 42.9
--- NOTE | 2022-09-28 11:36 | CT_ITS ---
FINAL REPORT CLINICAL HISTORY: AMs, unknoen cause COMPARISON: 08/15/2022 FINDINGS: Axial images of the head were obtained without contrast. Coronal reformatted images were also obtained. This study was performed with techniques to keep radiation doses as low as reasonably achievable (ALARA). Individualized dose reduction techniques using automated exposure control or adjustment of mA and/or kV according to the patient''s size were employed. There is generalized age-appropriate atrophy. Periventricular low-attenuation areas are seen consistent with mild chronic ischemic changes. There is no evidence of hemorrhage. There is a chronic lacunar infarct in the right frontal periventricular region which is stable. Multiple small calcifications are seen which are also stable. There is no evidence of acute infarct. There is no evidence of shift of the midline structures. No skull abnormality is seen on the bone window images. There is mild mucosal thickening of the right maxillary sinus. IMPRESSION: Atrophy and mild periventricular ischemic changes. Stable chronic appearing findings without acute intracranial abnormality. Reviewed, Interpreted and Dictated by Sang Herzog III, MD Transcribed by Edie Marvin Authenticated and [facility]
--- NOTE | 2022-09-28 11:37 | XR_ITS ---
FINAL REPORT CLINICAL HISTORY: AMS COMPARISON: 08/15/2022 FINDINGS: SINGLE-VIEW CHEST There is cardiomegaly. The mediastinum is normal. There are mild bibasilar opacities, favor atelectasis. There are chronic bilateral humeral fractures. There is no pneumothorax. IMPRESSION: Bibasilar opacities, favor atelectasis. Reviewed, Interpreted and Dictated by Sang Herzog III, MD Transcribed by Edie Marvin Authenticated and [facility]
--- NOTE | 2022-09-28 11:39 | HMH.EDGENADL ---
Discharge Plan Disposition Patient Disposition: Admitted As Inpatient Condition: Serious Chief Complaint: Recheck/Abnormal Lab/Rx Clinical Impressions Clinical Impression: Acute hepatic encephalopathy Discharge ED Provider: Kal Burr General Adult HPI General Chief complaint: Recheck/Abnormal Lab/Rx Stated complaint: ams Time Seen by Provider: 09/28/22 11:36 History of Present Illness HPI narrative: This is an 81-year-old female, history only obtained from chart review, with history of hypertension, hyperlipidemia, CVA with unknown residual deficits, CHF, diverticulosis, aortic stenosis, nonalcoholic fatty liver disease, A. fib, diabetes, hypothyroidism, currently on aspirin, Plavix, beta-blockade, lactulose, levothyroxine, Xarelto presenting with altered mental status. No history was able to be obtained by EMS. Nursing facility was contacted and had little information available regarding patient's last known normal, or any relevant history to help guide care. Related Data Home Medications Medication Instructions Recorded Confirmed cyanocobalamin (vitamin B-12) 1,000 mcg PO DAILY Supplement 02/10/18 09/26/22 1,000 mcg tablet (Vitamin B-12) pravastatin 80 mg tablet 80 mg PO HS Cholesterol 02/10/18 09/26/22 calcium carbonate 600 mg-vitamin 1 tab PO DAILY Supplement 02/05/21 09/26/22 D3 20 mcg (800 unit) tablet carvedilol 6.25 mg tablet 6.25 mg PO BID Hypertension 02/05/21 09/26/22 clopidogrel 75 mg tablet 75 mg PO DAILY coronary artery 03/24/21 09/26/22 disease pantoprazole 40 mg tablet,delayed 40 mg PO DAILY acid reflux 03/31/21 09/26/22 release ropinirole 0.25 mg tablet 0.25 mg PO HS restless leg syndrome 04/10/21 09/26/22 ferrous sulfate 325 mg (65 mg 325 mg PO DAILY anemia 08/16/21 09/26/22 iron) tablet potassium chloride 10 mEq 10 meq PO DAILY Supplement 09/03/21 09/26/22 capsule,extended release acetaminophen 500 mg tablet 500 mg PO Q4HP PRN PAIN/FEVER 10/02/21 09/26/22 spironolactone 25 mg tablet 25 mg PO BID Edema 12/16/21 09/26/22 fluticasone propionate 50 2 spray intranasal DAILY alleriges 02/26/22 09/26/22 mcg/actuation nasal spray,suspension rifaximin 550 mg tablet 550 mg PO BID HEPATIC 03/14/22 09/26/22 ENCEPHALOPATHY insulin glargine 100 unit/mL 15 units SQ HS Diabetes 03/15/22 09/26/22 subcutaneous solution insulin human U-100 NPH-regulr 30 unit SQ DAILY Diabetes 03/15/22 09/26/22 70-30 mix 100 unit/mL subcutaneous susp ondansetron HCl 4 mg tablet 4 mg PO Q6H PRN Nausea 07/18/22 09/26/22 escitalopram oxalate 10 mg tablet 10 mg PO DAILY Depression 08/16/22 09/26/22 (Lexapro) levothyroxine 175 mcg tablet 175 mcg PO DAILY hypothyroidism 08/16/22 09/26/22 multivitamin with iron-mineral 1 tab PO DAILY Supplement 08/16/22 09/26/22 ranolazine 500 mg tablet,extended 500 mg PO BID Hypertension 08/16/22 09/26/22 release,12 hr (Ranexa) rivaroxaban 15 mg tablet (Xarelto) 15 mg PO DAILY Blood thinner 08/16/22 09/26/22 Previous Rx's Medication Instructions Recorded lactulose 10 gram/15 mL oral 45 ml PO TID HEPATIC 03/16/22 solution ENCEPHALOPATHY ##0 bumetanide 1 mg tablet 1 mg PO BID Edema #60 tabs 07/18/22 Allergies Allergy/AdvReac Type Severity Reaction Status Date / Time Iodinated Contrast Media Allergy Intermediate Verified 08/16/22 03:57 naproxen [NAPROXEN] Allergy Mild Verified 08/16/22 03:57 [facility] Disclaimer: The information contained in this section may have been updated after the patient was seen, as this information can be updated by other users. Medical History (Updated 09/28/22 @ 15:06 by Kal Burr MD) Abnormal cardiovascular stress test Anxiety and depression Atherosclerotic heart disease CAD (coronary artery disease) Chest pain Chronic kidney disease Diabetes mellitus Diabetes mellitus Dizziness Dyspnea Edema Encounter for pre-operative cardiovascular clearance Fatty liver History of anemia History of transient ischemic a
[2022-09-28 12:07] LABS: ABG Base Excess 0.6 mmol/L (-2.4-2.3); ABG HCO3 23.5 mmhg (22.0-26.0); ABG Oxygen Saturation 96 % (90-100); ABG PCO2 29.6 mmhg (35.0-45.0); ABG PH 7.52 mmol/L (7.35-7.45); ABG PO2 77.1 mmhg (80-100); ABG TCO2 24.4 mmhg (23-27)
[2022-09-28 12:09] LABS: Allen's Test Patient Unable; Oxygen 21% %
[2022-09-28 12:10] LABS: Source Left Radial
--- NOTE | 2022-09-28 12:11 | HMH.ITSTN ---
SPOKE TO YANDY BOND ABOUT ALLERGY TO CONTRAST , WAITING ON LABS PRIOR TO SCAN AND PREMEDICATION
[2022-09-28 12:42] LABS: Ammonia 180 umol/L (9-30); Chloride 112 mmol/L (98-107); Potassium 4.1 mmoL/L (3.5-5.1); Sodium 144 mmol/L (136-145)
[2022-09-28 12:44] LABS: Blood Urea Nitrogen 28 mg/dl (7-17); Creatinine Clearance Estimated 25 mL/min (50-200); Estimated Glomerular Filt Rate 33 ml/min (>60); GFR (African American) 40 ML/MIN (>60)
[2022-09-28 12:45] LABS: Alanine Aminotransferase 24 U/L (12-78); Albumin Level 2.9 g/dl (3.5-5.0); Albumin/Globulin Ratio 1.1 (1.1-1.8); Alkaline Phosphatase 138 U/L (38-126); Anion Gap 8.1 mEq/L (5-15); Aspartate Amino Transferase 40 U/L (14-36); Bilirubin,Total 0.6 mg/dl (0.2-1.3); Calcium 8.5 mg/dl (8.4-10.2); Carbon Dioxide 28 mmol/L (22.0-30.0); Globulin 2.6 g/dL (1.3-3.2); Glucose 94 mg/dl (74-100); Lipase 74 U/L (23-300); Total Protein,Serum 5.5 g/dl (6.3-8.2)
[2022-09-28 12:46] LABS: Basophils # 0.1 K/mm3 (0-0.2); Basophils % 1.4 % (0.1-2.0); Eosinophils # 0.3 K/mm3 (0.0-0.4); Eosinophils % 5.4 % (0.1-12.0); Hematocrit 33.7 % (37.0-47.0); Hemoglobin 10.8 g/dL (12.2-16.2); Lactic Acid 1.5 mmol/L (0.7-2.1); Lymphocytes # 1.5 K/mm3 (0.7-4.5); Lymphocytes % 25.6 % (10-50); Mean Corpuscular HGB Conc 32.1 g/dL (31.8-35.4); Mean Corpuscular Hemoglobin 30.1 pg (27.0-31.2); Mean Corpuscular Volume 93.8 fl (81-99); Mean Platelet Volume 8.5 fl (7.4-10.4); Monocytes # 0.6 K/mm3 (0.1-1.0); Monocytes % 9.5 % (1.7-9.3); Neutrophils # 3.4 K/mm3 (1.8-7.8); Platelet Count 435 K/mm3 (142-424); Red Cell Distribution Width 16.8 % (11.5-17.5); White Blood Count 5.9 K/mm3 (4.8-10.8)
[2022-09-28 12:55] LABS: Troponin I 0.02 ng/ml (0.00-0.034)
[2022-09-28 12:59] LABS: T4 (Thyroxine) 21.4 ug/dl (5.53-11.0)
[2022-09-28 13:11] LABS: Microscopic, Urine URINE MICROSCOPIC (MICROSCOPIC)
[2022-09-28 13:13] LABS: Thyroid Stimulating Hormone 0.33 uIU/mL (0.465-4.68)
[2022-09-28 13:14] LABS: Erythrocyte Sedimentation Rate 38 mm/hr (0-30)
[2022-09-28 13:18] LABS: Appearance,Urine CLOUDY (Clear); Bilirubin,Urine Negative (Negative); Blood, Urine TRACE-I (Negative); Color,Urine YELLOW (Yellow); Glucose,Urine (UA) Negative (Negative); Ketones,Urine Negative (Negative); Leukocyte Esterase,Urine 2+ (Negative); Nitrate,Urine Negative (Negative); Protein,Urine Negative (Negative); Specific Gravity, Urine 1.015 (1.005-1.030); Urobilinogen,Urine 0.2 EU/dl (0.2)
[2022-09-28 13:29] LABS: Influenza A, PCR Not Detected (NotDetected); Influenza B, PCR Not Detected (NotDetected)
[2022-09-28 13:32] LABS: Bacteria,Urine 2+ /lpf; Squamous Epithelial Cell,Urine Occasional #/hpf (0-5)
[2022-09-28 14:12] LABS: Coronavirus 19, PCR Detected (NotDetected)
--- NOTE | 2022-09-28 14:40 | PC.NURSE ---
FAMILY UPDATED AT THIS TIME
--- NOTE | 2022-09-28 15:40 | EXP.HP ---
History of Present Illness *Admission Date: 09/28/22 *Reason for visit:: Altered mental status, encephalopathic *History of present illness: Ms. Moctezuma is an 81-year-old female long-term resident of a nursing facility with history of CVA, hypertension, hyperlipidemia, CHF, nonalcoholic fatty liver disease, cirrhosis, A. fib, diabetes, hypothyroid. She was brought to the ER via EMS due to concern for altered mental status. History obtained from chart, patient unable to give any history and no caregivers available. On arrival to the ER she was noted to have dried mucous membranes, soft abdomen, and had nonsensical muttering. Moving extremities spontaneously. Initial work-up positive for ammonia of 180. Urine suspicious for UTI. Medicine was consulted for admission for encephalopathy and CONOR. Unable to obtain any history from patient after she arrived to the floor. Cooperative with exam. Not opening eyes or responding to verbal commands. Muttering repetitively. No localizing or withdrawing from pain. [facility] Disclaimer: The information contained in this section may have been updated after the patient was seen, as this information can be updated by other users. Hx reviewed per chart Medical History Abnormal cardiovascular stress test Anxiety and depression Atherosclerotic heart disease CAD (coronary artery disease) Chest pain Chronic kidney disease Diabetes mellitus Diabetes mellitus Dizziness Dyspnea Edema Encounter for pre-operative cardiovascular clearance Fatty liver History of anemia History of transient ischemic attack (TIA) HLD (hyperlipidemia) HTN (hypertension) Hyperkalemia Hypothyroidism Near syncope Non-ST elevated myocardial infarction (non-STEMI) Stroke UTI (urinary tract infection) Family History Cancer Hypertension Social History Smoking Status: Never smoker alcohol intake: never substance use type: denies use current occupational status: retired Travel in the last 8 weeks: None household members: none housing: residential current occupational exposures/hazards: No caffeine: No Review of Systems Review of Systems Review of systems:: unable to obtain Review of systems (narrative): Patient's altered mental status complicates ability to obtain Meds Home Medications and Allergies Home Medications Medication Instructions Recorded Confirmed Type cyanocobalamin (vitamin B-12) 1,000 mcg PO DAILY Supplement 02/10/18 09/26/22 History 1,000 mcg tablet (Vitamin B-12) pravastatin 80 mg tablet 80 mg PO HS Cholesterol 02/10/18 09/26/22 History calcium carbonate 600 mg-vitamin 1 tab PO DAILY Supplement 02/05/21 09/28/22 History D3 20 mcg (800 unit) tablet carvedilol 6.25 mg tablet 6.25 mg PO BID Hypertension 02/05/21 09/28/22 History clopidogrel 75 mg tablet 75 mg PO DAILY coronary artery 03/24/21 09/28/22 History disease pantoprazole 40 mg tablet,delayed 40 mg PO DAILY acid reflux 03/31/21 09/28/22 History release ropinirole 0.25 mg tablet 0.25 mg PO HS restless leg syndrome 04/10/21 09/26/22 History ferrous sulfate 325 mg (65 mg 325 mg PO DAILY anemia 08/16/21 09/28/22 History iron) tablet potassium chloride 10 mEq 10 meq PO DAILY Supplement 09/03/21 09/28/22 History capsule,extended release acetaminophen 500 mg tablet 500 mg PO Q4HP PRN PAIN/FEVER 10/02/21 09/28/22 History spironolactone 25 mg tablet 25 mg PO BID Edema 12/16/21 09/28/22 History fluticasone propionate 50 2 spray intranasal DAILY alleriges 02/26/22 09/28/22 History mcg/actuation nasal spray,suspension rifaximin 550 mg tablet 550 mg PO BID HEPATIC 03/14/22 09/28/22 History ENCEPHALOPATHY insulin glargine 100 unit/mL 15 units SQ HS Diabetes 03/15/22 09/26/22 History subcutaneous solution insulin human U-100 NPH-regulr 30 unit S
[2022-09-28 16:18] LABS: Troponin I 0.02 ng/ml (0.00-0.034)
--- NOTE | 2022-09-28 16:50 | PC.NURSE ---
called report to lorie stallings
--- NOTE | 2022-09-28 17:26 | PC.NURSE ---
patient arrive by stretcher from ED
[2022-09-28 20:01] LABS: Troponin I 0.02 ng/ml (0.00-0.034)
--- NOTE | 2022-09-28 21:19 | PC.NURSE ---
notified EDUIN Mcconnell of pt's fsbs of 68 and npo status, [facility] to order new IVF with dextrose, will await new order
[2022-09-28 21:21] LABS: POC Glucose,Bedside 68 (70-110)
[2022-09-28 22:35] LABS: Ammonia 96 umol/L (9-30)
[2022-09-29] VITALS: BP 161/72; PULSE 88; PULSE 89; RESP 14; TEMP 37.1; O2SAT 97
[2022-09-29 02:53] LABS: POC Glucose,Bedside 101 (70-110)
[2022-09-29 04:00] VITALS: BP 162/72; PULSE 90; PULSE 98; RESP 18; TEMP 37.5; O2SAT 96; BMI 41.8
[2022-09-29 08:00] VITALS: BP 148/66; PULSE 91; PULSE 95; RESP 16; TEMP 37.2; O2SAT 95
[2022-09-29 08:08] LABS: Basophils # 0.1 K/mm3 (0-0.2); Basophils % 0.7 % (0.1-2.0); Eosinophils # 0.3 K/mm3 (0.0-0.4); Eosinophils % 4.1 % (0.1-12.0); Hematocrit 28.6 % (37.0-47.0); Lymphocytes # 1.6 K/mm3 (0.7-4.5); Lymphocytes % 21.6 % (10-50); Mean Corpuscular HGB Conc 33.1 g/dL (31.8-35.4); Mean Corpuscular Hemoglobin 29.4 pg (27.0-31.2); Mean Corpuscular Volume 88.9 fl (81-99); Mean Platelet Volume 8.7 fl (7.4-10.4); Monocytes # 0.6 K/mm3 (0.1-1.0); Monocytes % 7.9 % (1.7-9.3); Neutrophils # 4.7 K/mm3 (1.8-7.8); Neutrophils % 65.7 % (37.0-80.0); Platelet Count 411 K/mm3 (142-424); Red Blood Count 3.21 M/mm3 (4.20-5.40); Red Cell Distribution Width 16.8 % (11.5-17.5); White Blood Count 7.2 K/mm3 (4.8-10.8)
[2022-09-29 08:09] LABS: Chloride 115 mmol/L (98-107); Potassium 3.8 mmoL/L (3.5-5.1); Sodium 143 mmol/L (136-145)
[2022-09-29 08:11] LABS: Blood Urea Nitrogen 24 mg/dl (7-17); Creatinine Clearance Estimated 25 mL/min (50-200); Estimated Glomerular Filt Rate 33 ml/min (>60); GFR (African American) 40 ML/MIN (>60)
[2022-09-29 08:12] LABS: Alanine Aminotransferase 19 U/L (12-78); Albumin Level 2.5 g/dl (3.5-5.0); Albumin/Globulin Ratio 1.1 (1.1-1.8); Alkaline Phosphatase 130 U/L (38-126); Anion Gap 9.8 mEq/L (5-15); Aspartate Amino Transferase 33 U/L (14-36); Bilirubin,Total 0.6 mg/dl (0.2-1.3); Calcium 7.8 mg/dl (8.4-10.2); Carbon Dioxide 22 mmol/L (22.0-30.0); Globulin 2.3 g/dL (1.3-3.2); Glucose 143 mg/dl (74-100); Hemoglobin 9.5 g/dL (12.2-16.2); Total Protein,Serum 4.8 g/dl (6.3-8.2)
[2022-09-29 11:10] LABS: POC Glucose,Bedside 182 (70-110)
[2022-09-29 12:00] VITALS: BP 157/66; PULSE 85; PULSE 90; RESP 18; TEMP 37.3; O2SAT 95
--- NOTE | 2022-09-29 15:35 | EXP.ACUTE.PN ---
Subjective *Date: 09/29/22 *Time: 15:35 Interval history: Patient remains confused this morning, when told good morning on rounds and exam, patient repeats morning morning morning morning morning . Consistent with echolalia. Not following commands or opening eyes to verbal or painful stimuli. Not vocalizing to painful stimuli. Patient's baseline reportedly ambulatory with a walker. Afebrile and hemodynamically stable. No vomiting. Having bowel movements. Stable on room air. Medical Exam Vital signs and Labs for Last 24 Hours: Vital Signs Temp Pulse Pulse Resp BP BP Pulse Ox 09/29/22 12:00 99.1 F 90 18 157/66 H 95 09/29/22 08:00 95 09/29/22 08:00 99.0 F 95 H 16 148/66 H 95 09/29/22 04:00 90 09/29/22 04:00 99.5 F 98 H 18 162/72 H 96 09/29/22 00:00 88 09/28/22 20:00 78 09/29/22 00:00 98.8 F 89 14 161/72 H 97 09/28/22 20:00 97.8 F 82 16 160/67 H 98 09/28/22 20:00 98 09/28/22 17:30 98.2 F 89 14 167/75 H 98 09/28/22 18:37 82 96 09/28/22 17:15 98.6 F 74 17 165/65 H 09/28/22 16:30 75 15 164/65 H 99 09/28/22 16:00 80 15 152/70 H 97 Intake and Output 09/28/22 09/29/22 09/29/22 23:59 07:59 15:59 Intake Total 923 / 923 Output Total 550 / 550 1400 / 2675 1275 / 2675 Balance -550 / -550 -477 / -1752 -1275 / -1752 Intake: Intake, Total IV Amount 923 / 923 Dextrose 5 % and 0.9 % NaCl 1, 400 / 400 000 ml @ 25 mls/hr IV .Q25H [facility] Rx#:[id number] Ringers Solution,Lactated 1,000 523 / 523 ml @ 100 mls/hr IV .Q10H [facility] Rx#:[id number] Output: Output, Urine Amount 1400 / 2675 1275 / 2675 Output, Urine Amount (Catheter) 550 / 550 Dillard 550 / 550 Other: Number of Voids 0 Number of Unmeasured Voids 0 Number of Bowel Movements 1 Weight 111 kg Patient Weight 09/29/22 23:59 Weight 111 kg Laboratory Results - last 24 hr 09/28/22 15:31: Troponin I 0.02 09/28/22 18:23: Troponin I 0.02 09/28/22 21:10: POC Glucose 68 L 09/28/22 22:10: Ammonia 96 H 09/29/22 02:46: POC Glucose 101 09/29/22 07:38: WBC 7.2, RBC 3.21 L, Hgb 9.5 L D, Hct 28.6 L, MCV 88.9, MCH 29.4, MCHC 33.1, RDW 16.8, Plt Count 411, MPV 8.7, Neut % (Auto) 65.7, Lymph % (Auto) 21.6, [place] % (Auto) 7.9, Eos % (Auto) 4.1, Baso % (Auto) 0.7, Neut # (Auto) 4.7, Lymph # (Auto) 1.6, [place] # (Auto) 0.6, Eos # (Auto) 0.3, Baso # (Auto) 0.1 09/29/22 07:38: Sodium 143, Potassium 3.8, Chloride 115 H, Carbon Dioxide 22, Anion Gap 9.8, BUN 24 H, Creatinine 1.50 H, Estimated Creat Clear 25, Estimated GFR 33 L, Est GFR ( Amer) 40 L, Glucose 143 H D, Calcium 7.8 L, Magnesium 2.0, Total Bilirubin 0.6, AST 33, ALT 19, Alkaline Phosphatase 130 H, Total Protein 4.8 L, Albumin 2.5 L D, Globulin 2.3, Albumin/Globulin Ratio 1.1 09/29/22 11:04: POC Glucose 182 H I & O for Labs for Last 24 Hours: Intake & Output 09/26/22 09/27/22 09/28/22 09/29/22 23:59 23:59 23:59 23:59 Intake Total 923 / 923 Output Total 550 / 550 2675 / 2675 Balance -550 / -550 -1752 / -1752 Weight 113.398 kg 111 kg Microbiology Reports for the Last 24 Hours: Microbiology 09/28/22 12:48 Urine,Catheterized Urine Culture - Preliminary Constitutional: Present mild distress, morbidly obese, chronically ill appearing and somnolent Head: Present atraumatic and normocephalic ENT: Present normal exam Neck: Present normal inspection Respiratory: Present normal respiratory effort; Absent accessory muscle use, rhonchi, wheezes or crackles Cardiac: Present Reg Rate and Rhythm GI: Present soft and normal bowel sounds; Absent distention or tenderness Extremities: Present normal inspection, full ROM and edema Comment:: 2+ to knees Skin: Present intact; Absent erythema Neuro: Present moves all extremities Comment:: Altered, unable to evaluate Assessment and Plan *Assessment and plan (1) Acute hepatic encephalo
[2022-09-29 16:00] VITALS: BP 162/66; PULSE 80; PULSE 84; RESP 16; TEMP 37.3; O2SAT 95
[2022-09-29 16:50] LABS: POC Glucose,Bedside 168 (70-110)
[2022-09-29 18:44] LABS: Chloride 112 mmol/L (98-107); Potassium 3.6 mmoL/L (3.5-5.1); Sodium 143 mmol/L (136-145)
[2022-09-29 18:47] LABS: Ammonia 52 umol/L (9-30); Blood Urea Nitrogen 23 mg/dl (7-17); Creatinine Clearance Estimated 25 mL/min (50-200); Estimated Glomerular Filt Rate 33 ml/min (>60); GFR (African American) 40 ML/MIN (>60)
[2022-09-29 18:48] LABS: Anion Gap 9.6 mEq/L (5-15); Carbon Dioxide 25 mmol/L (22.0-30.0); Glucose 164 mg/dl (74-100)
[2022-09-29 20:00] VITALS: BP 147/67; PULSE 83; RESP 18; TEMP 36.9; O2SAT 96
[2022-09-29 20:15] LABS: POC Glucose,Bedside 155 (70-110)
[2022-09-30] VITALS: BP 149/66; PULSE 80; RESP 20; TEMP 37.3; O2SAT 96
--- NOTE | 2022-09-30 02:52 | PC.NURSE ---
patient in airborne/contact precautions. in negative pressure room. COMMUNICATION IS POOR. ONLY WORDS HEARD ARE, COME ON COME ON COME ON...) OCCASSIONAL DRY COUGH NOTED. SINUS RHYTHM ON TELEMETRY. NAD. NO INDICATIONS OF PAIN.
[2022-09-30 04:00] VITALS: BP 138/64; PULSE 84; RESP 20; TEMP 37.1; O2SAT 97; BMI 42.2
[2022-09-30 05:37] LABS: POC Glucose,Bedside 152 (70-110)
[2022-09-30 08:00] VITALS: BP 132/59; PULSE 68; PULSE 75; RESP 14; TEMP 37.1; O2SAT 96
[2022-09-30 10:00] LABS: Ammonia 50 umol/L (9-30)
[2022-09-30 11:06] VITALS: BMI 42.1
--- NOTE | 2022-09-30 11:19 | PC.NURSE ---
pt much more alert and appropriate this am. Was oriented to place and year. pt took all meds whole in applesauce without difficulty. Will get her up to the chair with assist
[2022-09-30 11:32] LABS: POC Glucose,Bedside 157 (70-110)
[2022-09-30 12:00] VITALS: BP 130/58; PULSE 64; PULSE 65; RESP 16; TEMP 36.8; O2SAT 99
[2022-09-30 12:59] LABS: Basophils # 0.1 K/mm3 (0-0.2); Basophils % 0.9 % (0.1-2.0); Eosinophils # 0.3 K/mm3 (0.0-0.4); Eosinophils % 4.5 % (0.1-12.0); Hemoglobin 9.8 g/dL (12.2-16.2); Lymphocytes # 1.7 K/mm3 (0.7-4.5); Lymphocytes % 27.3 % (10-50); Mean Corpuscular HGB Conc 32.6 g/dL (31.8-35.4); Mean Corpuscular Hemoglobin 29.7 pg (27.0-31.2); Mean Corpuscular Volume 91.1 fl (81-99); Mean Platelet Volume 8.1 fl (7.4-10.4); Monocytes # 0.6 K/mm3 (0.1-1.0); Monocytes % 8.9 % (1.7-9.3); Neutrophils # 3.7 K/mm3 (1.8-7.8); Neutrophils % 58.4 % (37.0-80.0); Platelet Count 373 K/mm3 (142-424); Red Blood Count 3.29 M/mm3 (4.20-5.40); Red Cell Distribution Width 16.6 % (11.5-17.5); White Blood Count 6.3 K/mm3 (4.8-10.8)
[2022-09-30 13:17] LABS: Chloride 116 mmol/L (98-107); Potassium 4.9 mmoL/L (3.5-5.1); Sodium 143 mmol/L (136-145)
[2022-09-30 13:19] LABS: Blood Urea Nitrogen 24 mg/dl (7-17); Creatinine Clearance Estimated 29 mL/min (50-200); Estimated Glomerular Filt Rate 39 ml/min (>60); GFR (African American) 47 ML/MIN (>60)
[2022-09-30 13:20] LABS: Alanine Aminotransferase 20 U/L (12-78); Albumin Level 2.6 g/dl (3.5-5.0); Albumin/Globulin Ratio 1.1 (1.1-1.8); Alkaline Phosphatase 113 U/L (38-126); Anion Gap 8.9 mEq/L (5-15); Aspartate Amino Transferase 45 U/L (14-36); Bilirubin,Total 0.7 mg/dl (0.2-1.3); Calcium 8.1 mg/dl (8.4-10.2); Carbon Dioxide 23 mmol/L (22.0-30.0); Globulin 2.3 g/dL (1.3-3.2); Glucose 195 mg/dl (74-100); Total Protein,Serum 4.9 g/dl (6.3-8.2)
--- NOTE | 2022-09-30 15:28 | HMH.PTEV ---
Physical Therapy Evaluation Rehab PT IP Evaluation Start: 09/30/22 09:57 Freq: ONCE Status: Active Protocol: Document 09/30/22 15:17 RAISSA (Rec: 09/30/22 15:27 RAISSA [id number]) Subjective/History History History Patient is an 81 year old female admitted to [facility] secondary to hepatic encephalopathy. Patient previously living in SNF requiring assistance with all ADL's. Subjective Subjective Patient was agreeable to participate with PT. Rehab PT IP Eval Objective Appearance Patient Behavior Confused Difficulty following instructions mild Speech Pattern Mumbled Ambulation Patient Able to Ambulate No Balance Ability to Arise Unable Sitting Balance Leans or slides in chair Dynamic Sitting Balance Ability Fair Transfers Bed Transfer Ability Moderate x 1 (50% assist) ROM All Extremities PT ROM Status WFL MMT All Extremities PT MMT WFL Rehab PT IP prob,goals,plan Problems Date of Evaluation: 09/30/22 PT IP Problems Bed Mobility,Transfers,Gait, Balance Rehab Potential Rehab Potential Fair Equipment Needs Assistive Devices Rolling / Wheeled Walker Plan PT Intervention Plan Bed Mobility,Transfers, Therapeutic Exercise PT Plan Frequency BID Duration LOS Discharge Goals Bed Transfer Ability Minimal x 1 (25% assist) Sit to Stand Chair Transfer Ability Minimal x 1 (25% assist) Ambulation Distance (feet) 20 Discharge Plan PT Discharge Plan Once found medically stable by MD, PT suggests patient is appropriate to DC back to SNF for further rehab. G -code Required Yes G Codes PT Current Status Mobility PT Current Status Modifier CJ-At least 20% but less than 40% impaired, limited or restricted PT Goal Status Mobility PT Goal Status Modifer CJ-At least 20% but less than 40% impaired, limited or restricted PHYSICIAN CERTIFICATION: I certify the specified therapy services for Dewayne Moctezuma are required, authorized, and reviewed every 30 days.
[2022-09-30 16:00] VITALS: BP 139/56; PULSE 70; RESP 16; TEMP 36.8; O2SAT 92
--- NOTE | 2022-09-30 17:09 | EXP.ACUTE.PN ---
Subjective *Date: 09/30/22 *Time: 17:12 Medical Exam Vital signs and Labs for Last 24 Hours: Vital Signs Temp Pulse Pulse Resp BP Pulse Ox 09/30/22 12:00 65 09/30/22 12:00 98.3 F 64 16 130/58 L 99 09/30/22 08:00 98.7 F 68 14 132/59 L 96 09/30/22 08:00 75 09/30/22 04:00 98.7 F 84 20 138/64 97 09/29/22 20:00 96 09/30/22 00:00 99.1 F 80 20 149/66 H 96 09/29/22 20:00 98.5 F 83 18 147/67 H 96 Intake and Output 09/30/22 09/30/22 09/30/22 07:59 15:59 23:59 Intake Total 603 / 603 Output Total 600 / 600 Balance 3 Intake: Intake, Oral Amount 0 / 0 Intake, Total IV Amount 603 / 603 Dextrose 5 % and 0.9 % NaCl 1, 603 / 603 000 ml @ 25 mls/hr IV .Q25H [facility] Rx#:[id number] Output: Output, Urine Amount 600 / 600 Other: Number of Unmeasured Voids 0 0 Weight 112.2 kg 112 kg Patient Weight 09/30/22 23:59 Weight 112 kg Laboratory Results - last 24 hr 09/29/22 18:17: Ammonia 52 H 09/29/22 18:17: Sodium 143, Potassium 3.6, Chloride 112 H, Carbon Dioxide 25, Anion Gap 9.6, BUN 23 H, Creatinine 1.50 H, Estimated Creat Clear 25, Estimated GFR 33 L, Est GFR ( Amer) 40 L, Glucose 164 H, Calcium 8.0 L 09/29/22 20:07: POC Glucose 155 H 09/30/22 04:42: POC Glucose 152 H 09/30/22 09:44: Ammonia 50 H 09/30/22 11:24: POC Glucose 157 H 09/30/22 12:48: WBC 6.3, RBC 3.29 L, Hgb 9.8 L, Hct 30.0 L, MCV 91.1, MCH 29.7, MCHC 32.6, RDW 16.6, Plt Count 373, MPV 8.1, Neut % (Auto) 58.4, Lymph % (Auto) 27.3, [place] % (Auto) 8.9, Eos % (Auto) 4.5, Baso % (Auto) 0.9, Neut # (Auto) 3.7, Lymph # (Auto) 1.7, [place] # (Auto) 0.6, Eos # (Auto) 0.3, Baso # (Auto) 0.1 09/30/22 12:48: Sodium 143, Potassium 4.9 D, Chloride 116 H, Carbon Dioxide 23, Anion Gap 8.9, BUN 24 H, Creatinine 1.30 H, Estimated Creat Clear 29, Estimated GFR 39 L, Est GFR ( Amer) 47 L, Glucose 195 H, Calcium 8.1 L, Magnesium 2.0, Total Bilirubin 0.7, AST 45 H D, ALT 20, Alkaline Phosphatase 113, Total Protein 4.9 L, Albumin 2.6 L, Globulin 2.3, Albumin/Globulin Ratio 1.1 I & O for Labs for Last 24 Hours: Intake & Output 09/27/22 09/28/22 09/29/22 09/30/22 23:59 23:59 23:59 23:59 Intake Total 923 / 923 603 / 603 Output Total 550 / 550 3775 / 3775 600 / 600 Balance -550 / -550 -2852 / -2852 Weight 113.398 kg 111 kg 112 kg Microbiology Reports for the Last 24 Hours: Microbiology 09/28/22 12:05 Blood Blood Culture - Preliminary NO GROWTH AFTER 48 HOURS 09/28/22 12:05 Blood Blood Culture - Preliminary NO GROWTH AFTER 48 HOURS 09/28/22 12:48 Urine,Catheterized Urine Culture - Preliminary Gram Negative Rods Constitutional: Present no acute distress, morbidly obese, chronically ill appearing and cooperative Head: Present atraumatic and normocephalic ENT: Present normal exam Neck: Present normal inspection Respiratory: Present normal respiratory effort; Absent accessory muscle use, rhonchi, wheezes or crackles Cardiac: Present Reg Rate and Rhythm GI: Present soft and normal bowel sounds; Absent distention or tenderness Extremities: Present normal inspection, full ROM and edema Comment:: 2+ to knees Skin: Present intact; Absent erythema Neuro: Present alert, awake and moves all extremities Comment:: Oriented to self and place. Answering questions appropriately. Significant improvement over exam yesterday. Mild asterixis on exam Assessment and Plan *Assessment and plan (1) Acute hepatic encephalopathy: Status: Acute Category: Medical Code(s): K76.82 - Hepatic encephalopathy (2) CONOR (acute kidney injury): Status: Acute Category: Medical Code(s): N17.9 - Acute kidney failure, unspecified (3) Hypertension: Status: Chronic Qualifiers: Hypertension type: unspecified Qualified Code(s): I10 - [facility]
[2022-09-30 17:35] LABS: POC Glucose,Bedside 221 (70-110)
[2022-09-30 20:00] VITALS: BP 120/48; PULSE 63; RESP 18; TEMP 36.8; O2SAT 94
[2022-09-30 22:04] LABS: POC Glucose,Bedside 199 (70-110)
--- NOTE | 2022-09-30 22:42 | EXP.DC.SUM ---
General Admission date:: 09/28/22 Discharge date: 10/01/22 HPI HPI HPI: Ms. Moctezuma is an 81-year-old female long-term resident of a nursing facility with history of CVA, hypertension, hyperlipidemia, CHF, nonalcoholic fatty liver disease, cirrhosis, A. fib, diabetes, hypothyroid. She was brought to the ER via EMS due to concern for altered mental status. History obtained from chart, patient unable to give any history and no caregivers available. On arrival to the ER she was noted to have dried mucous membranes, soft abdomen, and had nonsensical muttering. Moving extremities spontaneously. Initial work-up positive for ammonia of 180. Urine suspicious for UTI. Medicine was consulted for admission for encephalopathy and CONOR. Unable to obtain any history from patient after she arrived to the floor. Cooperative with exam. Not opening eyes or responding to verbal commands. Muttering repetitively. No localizing or withdrawing from pain. Hospital Course Hospital Course Hospital Course: 81-year-old female with extensive past medical history including cirrhosis.? Presented with hepatic encephalopathy.? Mentation improving on exam today.? Able to answer questions appropriately and respond to verbal stimuli.? Alert and oriented.? Problems addressed as follows: Hepatic encephalopathy Nonalcoholic fatty liver disease Cirrhosis -Presented with severely elevated ammonia on admission. Level of 180. Initiated on lactulose rectally if she is unable to take p.o. Gradually saw improvement with ammonia to 50. Mentation cleared, patient was alert, oriented, asking appropriate questions and having appropriate conversation. Able to transition back to oral regimen. Continue lactulose. Recommend goal of 2-3 bowel movements a day. If not having at least 2-3 bowel movements a day on outpatient lactulose regimen, increase to desired stool output. Resume oral rifaximin. Much improved mentally. Stable for discharge back to her nursing facility. UTI -Urinalysis grossly abnormal on admission. Started on cefepime. Culture came back as Klebsiella on day of discharge. Sensitive to fluoroquinolones. Transition to Levaquin on day of discharge. Will treat with antibiotic course of 7 days total. Renally dosed Levaquin, 750 mg every 48 hours. Needs 2 more doses. First dose at nursing facility on 10/03. Initially had Dillard in place, discontinued day prior to discharge. Volume overload CHF -nitially held medications due to inability to tolerate oral intake. Resumed home medications for heart failure including carvedilol, Plavix, spironolactone. Continue Bumex twice daily. Hypothyroidism: Frankly hyperthyroid on admission, suppressed TSH adn T4 of >20. Held her levothyroxine during admission. Recommend resuming levothyroxine at discharge with a lower dose. Sent levothyroxine 112 mcg daily. Diabetes -Sliding scale insulin every 6 hours during admission. Resume home regimen at discharge. Fingersticks consistently less than 200. Stable for discharge back to nursing facility. Patient does show some signs of debility, would benefit from therapy evaluation and rehab. Exam Data for Last 24 hours Vital signs and Labs for Last 24 Hours: Temp Pulse Resp BP Pulse Ox 98.3 F 63 18 120/48 L 94 L 09/30/22 20:00 09/30/22 20:00 09/30/22 20:00 09/30/22 20:00 09/30/22 20:00 Laboratory Results - last 24 hr 09/30/22 04:42: POC Glucose 152 H 09/30/22 09:44: Ammonia 50 H 09/30/22 11:24: POC Glucose 157 H 09/30/22 12:48: WBC 6.3, RBC 3.29 L, Hgb 9.8 L, Hct 30.0 L, MCV 91.1, MCH 29.7, MCHC 32.6, RDW 16.6, Plt Count 373, MPV 8.1, Neut % (Auto) 58.4, Lymph % (Auto) 27.3, [place] % (Auto) 8.9, Eos % (Auto) 4.5, Baso % (Auto) 0.9, Neut # (Auto) 3.7, Lymph # (Auto) 1.7, [place] # (Auto) 0.6, Eos # (Auto) 0.3, Baso # (Auto) 0.1 09/30/22 12:48: Sodium 143, Potassium 4.9 D, Chloride 116 H, Carbon Dioxide 23, Anion Gap 8.9, BUN 24 H, Creatinine 1.30 H, Estimated Creat
[2022-10-01] VITALS: BP 121/55; PULSE 68; PULSE 69; RESP 18; TEMP 36.8; O2SAT 96
[2022-10-01 04:00] VITALS: BP 135/66; PULSE 59; PULSE 63; RESP 18; TEMP 36.8; O2SAT 98; BMI 38.0
[2022-10-01 05:11] LABS: POC Glucose,Bedside 151 (70-110)
--- NOTE | 2022-10-01 05:27 | PC.NURSE ---
PATIENT HAS BEEN A/O X 3 THIS SHIFT. MORE COHERENT AND APPROPRIATE. SOMETIMES REFUSES CARE. REMAINS IN AIR[place]ORNE/CONTACT ISOLATION DUE TO COVID POSITIVE. NO RESP DISTRESS NOTED. IS ON ROOM AIR. OCCASSIONAL DRY COUGGH NOTED.
[2022-10-01 08:00] VITALS: BP 139/62; PULSE 59; PULSE 66; RESP 18; RESP 20; TEMP 37; O2SAT 99
--- NOTE | 2022-10-01 08:56 | SW/DCPLANNER ---
This patient currently resides at [facility] w/ [facility]. Patient is currently established w/ [facility]. The plan for this patient is to return back to [facility] today. I will update Shikha w/ [facility] and [facility]. Shikha has stated that patient does not require a COVID swab prior to returning.
--- NOTE | 2022-10-01 12:03 | PC.NURSE ---
1030: Called Colton Urrutia, pts son and POA, to discuss d/c to NH. No questions at this time.
--- NOTE | 2022-10-02 13:01 | CARE MANAGER ---
Attempted to contact [facility] and was transfered then left on hold.
== END 2022-10-01 10:55 | DRG 441 ==
LOC: ER 12:17 → 2ND 14:39
PROVIDERS: Admitting Provider Internal Medicine Adolescent Medicine; Emergency Provider Emergency Medicine; PCP Internal Medicine; Visit Provider Internal Medicine Adolescent Medicine
DX: K76.82 Hepatic encephalopathy (principal); I50.33 Acute on chronic diastolic (congestive) heart failure; N17.9 Acute kidney failure, unspecified; N39.0 Urinary tract infection, site not specified; S14.129A Central cord syndrome at unspecified level of cervical spinal cord, initial encounter; E05.90 Thyrotoxicosis, unspecified without thyrotoxic crisis or storm; Z86.73 Personal history of transient ischemic attack (TIA), and cerebral infarction without residual deficits; K76.0 Fatty (change of) liver, not elsewhere classified; I48.91 Unspecified atrial fibrillation; E11.9 Type 2 diabetes mellitus without complications; E66.01 Morbid (severe) obesity due to excess calories; E78.5 Hyperlipidemia, unspecified; E03.9 Hypothyroidism, unspecified; I25.2 Old myocardial infarction; I11.0 Hypertensive heart disease with heart failure; Z68.38 Body mass index [BMI] 38.0-38.9, adult; Z79.4 Long term (current) use of insulin
CPT/HCPCS: 36415; 36430; 51702; 70450; 71045; 80048; 80053; 81001; 82140; 82803; 82962; 83605; 83690; 83735; 84436; 84443; 84484; 85014; 85018; 85025; 85651; 86850; 87040; 87086; 87088; 87186; 99285; C9803; P9016; U0003; U0005

== ENCOUNTER 2022-10-12 14:59 | Emergency (ER) | payer MEDICARE, SELFPAY ==
[2022-10-12] VITALS (9 sets, daily range): BP systolic 150–175; BP diastolic 54–68; PULSE 64–72; RESP 12–20; TEMP 36.6–36.8; O2SAT 97–100; BMI 47.0; BMI 48.4
--- NOTE | 2022-10-12 15:39 | XR_ITS ---
FINAL REPORT TECHNIQUE: Single view chest CLINICAL HISTORY: weakness COMPARISON: 09/28/2022 FINDINGS: A single view of the chest was obtained. The heart and mediastinum are within normal limits. There are left base opacities favored to represent atelectasis or scarring. There is no pneumothorax. Osseous structures demonstrate chronic fractures of both proximal humeri. IMPRESSION: Left base opacities favored to represent atelectasis or scarring. Reviewed, Interpreted and Dictated by Sang Herzog III, MD Transcribed by Shy Baldwin Authenticated and [facility]
[2022-10-12 17:52] LABS: Microscopic, Urine URINE MICROSCOPIC (MICROSCOPIC)
[2022-10-12 17:54] LABS: Basophils # 0.1 K/mm3 (0-0.2); Basophils % 0.9 % (0.1-2.0); Eosinophils # 0.5 K/mm3 (0.0-0.4); Hematocrit 22.5 % (37.0-47.0); Hemoglobin 7.2 g/dL (12.2-16.2); Lymphocytes # 1.5 K/mm3 (0.7-4.5); Mean Corpuscular Hemoglobin 28.9 pg (27.0-31.2); Mean Corpuscular Volume 90.2 fl (81-99); Mean Platelet Volume 8.3 fl (7.4-10.4); Monocytes # 0.3 K/mm3 (0.1-1.0); Monocytes % 5.8 % (1.7-9.3); Neutrophils # 2.8 K/mm3 (1.8-7.8); Neutrophils % 55.3 % (37.0-80.0); Platelet Count 510 K/mm3 (142-424); Red Cell Distribution Width 16.8 % (11.5-17.5); White Blood Count 5.1 K/mm3 (4.8-10.8)
[2022-10-12 17:58] LABS: Chloride 110 mmol/L (98-107); Potassium 4.6 mmoL/L (3.5-5.1); Sodium 142 mmol/L (136-145)
[2022-10-12 17:59] LABS: Appearance,Urine CLEAR (Clear); Bilirubin,Urine Negative (Negative); Blood, Urine Negative (Negative); Color,Urine YELLOW (Yellow); Glucose,Urine (UA) Negative (Negative); Ketones,Urine Negative (Negative); Leukocyte Esterase,Urine Negative (Negative); Nitrate,Urine Negative (Negative); Protein,Urine Negative (Negative); Urobilinogen,Urine 0.2 EU/dl (0.2)
[2022-10-12 18:00] LABS: Alanine Aminotransferase 19 U/L (12-78); Ammonia 109 umol/L (9-30); Aspartate Amino Transferase 32 U/L (14-36); Blood Urea Nitrogen 34 mg/dl (7-17); Creatinine Clearance Estimated 25 mL/min (50-200); Estimated Glomerular Filt Rate 31 ml/min (>60); GFR (African American) 37 ML/MIN (>60)
[2022-10-12 18:01] LABS: Alkaline Phosphatase 120 U/L (38-126); Bilirubin,Total 0.3 mg/dl (0.2-1.3)
[2022-10-12 18:03] LABS: Albumin Level 2.8 g/dl (3.5-5.0); Anion Gap 8.6 mEq/L (5-15); Calcium 8.6 mg/dl (8.4-10.2); Carbon Dioxide 28 mmol/L (22.0-30.0); Globulin 2.7 g/dL (1.3-3.2); Glucose 103 mg/dl (74-100); Total Protein,Serum 5.5 g/dl (6.3-8.2)
[2022-10-12 18:07] LABS: C-Reactive Protein 9.1 mg/L (0-4)
[2022-10-12 18:16] LABS: Squamous Epithelial Cell,Urine Occasional #/hpf (0-5)
[2022-10-12 18:43] LABS: Procalcitonin 0.087 ng/mL (0.0-2.0)
--- NOTE | 2022-10-12 18:43 | PC.NURSE ---
[facility] has been called about transfer
--- NOTE | 2022-10-12 18:53 | HMH.EDGENADL ---
Discharge Plan Disposition Patient Disposition: Home, Self-Care Prescriptions Prescriptions: No Action cyanocobalamin (vitamin B-12) [Vitamin B-12] 1,000 mcg tablet 1,000 mcg PO DAILY clopidogrel 75 mg tablet 75 mg PO DAILY Hold Instructions: Resume on 04/16/22. if no further bleeding Label Comments: TAKE 1 TABLET BY MOUTH EVERY DAY ondansetron HCl 4 mg tablet 4 mg PO Q6H PRN (Reason: Nausea) bumetanide 1 mg tablet 1 mg PO BID Qty: 60 5RF ropinirole 0.25 MG tablet 0.25 mg PO HS potassium chloride 10 MEQ capsule, extended release 10 meq PO DAILY acetaminophen 500 MG tablet 500 mg PO Q4HP PRN (Reason: PAIN/FEVER) escitalopram oxalate [Lexapro] 10 mg Tablet 10 mg PO DAILY ranolazine [Ranexa] 500 mg tablet extended release 12 hr 500 mg PO BID Xarelto 15 mg tablet 15 mg PO DAILY Rx Instructions: must administer with evening meal multivitamin with iron-mineral Tablet 1 tab PO DAILY carvedilol 6.25 MG tablet 6.25 mg PO BID calcium carbonate-vitamin D3 1 EACH tablet 1 tab PO DAILY pantoprazole 40 MG tablet,delayed release (DR/EC) 40 mg PO DAILY spironolactone 25 MG tablet 25 mg PO BID fluticasone propionate 16 GM spray,suspension 2 spray NS DAILY rifaximin 550 MG tablet 550 mg PO BID insulin glargine 100 UNIT/ML solution 15 units SQ HS insulin NPH and regular human 100 UNIT/ML suspension 30 unit SQ DAILY levothyroxine 112 mcg capsule 112 mcg PO DAILY 30 Days Qty: 30 0RF lactulose 10 GM/15 ML solution 45 ml PO TID 30 Days Qty: 4050 0RF levofloxacin 750 mg Tablet 750 mg PO Q48H 4 Days Qty: 2 0RF Referrals Follow up/Referrals: James Rascon MD [Primary Care Provider] - See instructions Activity Restrictions/Add. Instructions Additional Instructions/Restrictions: Recommend giving an additional dose of lactulose for the next 3 days Please follow-up repeat CBC or H&H on Saturday to monitor hemoglobin Clinical Impressions Clinical Impression: Encephalopathy, hepatic, Chronic anemia Discharge ED Provider: Luke Vaughn General Adult HPI General Chief complaint: Recheck/Abnormal Lab/Rx Stated complaint: AMS Time Seen by Provider: 10/12/22 15:15 Mode of Arrival: EMS Source of Information: Patient Limitations: No Limitations Description of Symptoms (Recalled from ER Triage Doc. by RN): pt to ed via ems c/o ams. pt is a&o x4 on arrival to ed with no complaints. History of Present Illness HPI narrative: Patient is an 81-year-old female with a past medical history of hypertension, heart failure, Wiley, atrial fibrillation, diabetes, hepatic encephalopathy who presents with concern for altered mental status. Patient arrives A&O x3 with only a complaint of being a little more tired than normal. She denies any chest pain or shortness of breath. Denies any weakness. Denies any nausea or vomiting. EMS reports that they were called out due to the altered mental status and called by the nursing facility. Patient has no other complaints at this time. Related Data Home Medications Medication Instructions Recorded Confirmed cyanocobalamin (vitamin B-12) 1,000 mcg PO DAILY Supplement 02/10/18 10/09/22 1,000 mcg tablet (Vitamin B-12) calcium carbonate 600 mg-vitamin 1 tab PO DAILY Supplement 02/05/21 10/09/22 D3 20 mcg (800 unit) tablet carvedilol 6.25 mg tablet 6.25 mg PO BID Hypertension 02/05/21 10/09/22 clopidogrel 75 mg tablet 75 mg PO DAILY coronary artery 03/24/21 10/09/22 disease pantoprazole 40 mg tablet,delayed 40 mg PO DAILY acid reflux 03/31/21 10/09/22 release ropinirole 0.25 mg tablet 0.25 mg PO HS restless leg syndrome 04/10/21 10/09/22 potassium chloride 10 mEq 10 meq PO DAILY Supplement 09/03/21 10/09/22 capsule,extended release acetaminophen 500 mg tablet 500 mg PO Q4HP PRN PAIN/FEVER 10/02/21 10/09/22 spironolactone 25 mg tablet 25
--- NOTE | 2022-10-12 19:02 | PC.NURSE ---
called report to lata at [facility]
== END 2022-10-12 20:00 | disposition home or self-care (01) ==
PROVIDERS: Emergency Provider Student in an Organized Health Care Education/Training Program; PCP Internal Medicine
DX: K76.82 Hepatic encephalopathy (principal); D63.8 Anemia in other chronic diseases classified elsewhere; I11.0 Hypertensive heart disease with heart failure; I50.9 Heart failure, unspecified; I48.91 Unspecified atrial fibrillation; K75.81 Nonalcoholic steatohepatitis (NASH); E11.9 Type 2 diabetes mellitus without complications; F41.9 Anxiety disorder, unspecified; I25.10 Atherosclerotic heart disease of native coronary artery without angina pectoris; Z86.73 Personal history of transient ischemic attack (TIA), and cerebral infarction without residual deficits; Z87.440 Personal history of urinary (tract) infections; Z80.9 Family history of malignant neoplasm, unspecified; Z82.49 Family history of ischemic heart disease and other diseases of the circulatory system
CPT/HCPCS: 71045; 80053; 81001; 82140; 84145; 85025; 86140

== ENCOUNTER 2022-10-13 09:52 | Inpatient (IN) | payer MEDICARE, OTHER, SELFPAY ==
[2022-10-13] VITALS (24 sets, daily range): BP systolic 122–164; BP diastolic 49–80; PULSE 78–87; RESP 14–18; TEMP 36.6–37.3; O2SAT 93–100; BMI 42.9; BMI 39.2
--- NOTE | 2022-10-13 10:09 | HMH.EDGENADL ---
Discharge Plan Disposition Patient Disposition: Admitted As Inpatient Condition: Fair Chief Complaint: Altered Mental Status Prescriptions Prescriptions: No Action cyanocobalamin (vitamin B-12) [Vitamin B-12] 1,000 mcg tablet 1,000 mcg PO DAILY clopidogrel 75 mg tablet 75 mg PO DAILY Hold Instructions: Resume on 04/16/22. if no further bleeding Label Comments: TAKE 1 TABLET BY MOUTH EVERY DAY ondansetron HCl 4 mg tablet 4 mg PO Q6H PRN (Reason: Nausea) bumetanide 1 mg tablet 1 mg PO BID Qty: 60 5RF ropinirole 0.25 MG tablet 0.25 mg PO HS potassium chloride 10 MEQ capsule, extended release 10 meq PO DAILY acetaminophen 500 MG tablet 500 mg PO Q4HP PRN (Reason: PAIN/FEVER) escitalopram oxalate [Lexapro] 10 mg Tablet 10 mg PO DAILY ranolazine [Ranexa] 500 mg tablet extended release 12 hr 500 mg PO BID Xarelto 15 mg tablet 15 mg PO DAILY Rx Instructions: must administer with evening meal multivitamin with iron-mineral Tablet 1 tab PO DAILY carvedilol 6.25 MG tablet 6.25 mg PO BID calcium carbonate-vitamin D3 1 EACH tablet 1 tab PO DAILY pantoprazole 40 MG tablet,delayed release (DR/EC) 40 mg PO DAILY spironolactone 25 MG tablet 25 mg PO BID fluticasone propionate 16 GM spray,suspension 2 spray NS DAILY rifaximin 550 MG tablet 550 mg PO BID insulin glargine 100 UNIT/ML solution 15 units SQ HS insulin NPH and regular human 100 UNIT/ML suspension 30 unit SQ DAILY levothyroxine 112 mcg capsule 112 mcg PO DAILY 30 Days Qty: 30 0RF lactulose 10 GM/15 ML solution 45 ml PO TID 30 Days Qty: 4050 0RF levofloxacin 750 mg Tablet 750 mg PO Q48H 4 Days Qty: 2 0RF Referrals Follow up/Referrals: Provider,Referral, MD [Referring] - See instructions Clinical Impressions Clinical Impression: Acute hepatic encephalopathy Instructions Patient Instructions: DI for Altered Mental Status Discharge ED Provider: Matti Barriga General Adult HPI General Chief complaint: Altered Mental Status Stated complaint: ams Time Seen by Provider: 10/13/22 10:00 History of Present Illness HPI narrative: Patient is a 81-year-old female with past medical history of cirrhosis with resultant intermittent hepatic encephalopathy on lactulose, hypertension, hyperlipidemia, diabetes, CKD, dementia, previous CVA with unknown residual who presents emergency department for evaluation of altered mental status. Limited history is unable to be obtained as patient is perseverating upon arrival that is largely consistent with her baseline per EMS and nursing in their limited interactions. Patient lives at [facility] where reportedly there was concerns for worsening mental status in the setting of patient noncompliance with lactulose for which she refused orally. Due to refusing lactulose today transport her here for continued evaluation. Per internal medicine patient's baseline is alert and oriented x2, conversational at discharge 2 weeks ago. Per chart review patient was recently admitted for hepatic encephalopathy, she has past medical history of GI bleed, PCI with drug-eluting stents, atrial fibrillation on chronic anticoagulation, fatty liver disease, hypothyroidism. She lives at long-term care facility and is under the care of hospice Related Data Home Medications Medication Instructions Recorded Confirmed cyanocobalamin (vitamin B-12) 1,000 mcg PO DAILY Supplement 02/10/18 10/09/22 1,000 mcg tablet (Vitamin B-12) calcium carbonate 600 mg-vitamin 1 tab PO DAILY Supplement 02/05/21 10/09/22 D3 20 mcg (800 unit) tablet carvedilol 6.25 mg tablet 6.25 mg PO BID Hypertension 02/05/21 10/09/22 clopidogrel 75 mg tablet 75 mg PO DAILY coronary artery 03/24/21 10/09/22 disease pantoprazole 40 mg tablet,delayed 40 mg PO DAILY acid reflux 03/31/21 10/09/22 release ro
[2022-10-13 10:12] LABS: Coronavirus 19, PCR Not Detected (NotDetected); Influenza A, PCR Not Detected (NotDetected); Influenza B, PCR Not Detected (NotDetected)
--- NOTE | 2022-10-13 10:12 | PC.NURSE ---
Dr Barriga speaking with Dr Jacques
[2022-10-13 10:32] LABS: Basophils # 0.1 K/mm3 (0-0.2); Basophils % 1.4 % (0.1-2.0); Eosinophils # 0.5 K/mm3 (0.0-0.4); Eosinophils % 9.2 % (0.1-12.0); Hematocrit 23.4 % (37.0-47.0); Hemoglobin 7.6 g/dL (12.2-16.2); Lymphocytes # 1.6 K/mm3 (0.7-4.5); Lymphocytes % 32.5 % (10-50); Mean Corpuscular HGB Conc 32.3 g/dL (31.8-35.4); Mean Corpuscular Hemoglobin 29.4 pg (27.0-31.2); Mean Platelet Volume 8.1 fl (7.4-10.4); Monocytes # 0.4 K/mm3 (0.1-1.0); Monocytes % 8.5 % (1.7-9.3); Neutrophils # 2.5 K/mm3 (1.8-7.8); Neutrophils % 48.4 % (37.0-80.0); Platelet Count 570 K/mm3 (142-424); Red Blood Count 2.57 M/mm3 (4.20-5.40); Red Cell Distribution Width 17.2 % (11.5-17.5); White Blood Count 5.1 K/mm3 (4.8-10.8)
[2022-10-13 10:34] LABS: Chloride 112 mmol/L (98-107)
[2022-10-13 10:35] LABS: Potassium 4.2 mmoL/L (3.5-5.1); Sodium 143 mmol/L (136-145)
[2022-10-13 10:37] LABS: Alanine Aminotransferase 22 U/L (12-78); Alkaline Phosphatase 132 U/L (38-126); Anion Gap 7.2 mEq/L (5-15); Aspartate Amino Transferase 31 U/L (14-36); Bilirubin,Total 0.3 mg/dl (0.2-1.3); Blood Urea Nitrogen 31 mg/dl (7-17); Calcium 8.6 mg/dl (8.4-10.2); Carbon Dioxide 28 mmol/L (22.0-30.0); Creatinine Clearance Estimated 22 mL/min (50-200); Estimated Glomerular Filt Rate 29 ml/min (>60); GFR (African American) 35 ML/MIN (>60); Glucose 84 mg/dl (74-100)
[2022-10-13 10:38] LABS: Albumin Level 2.9 g/dl (3.5-5.0); Albumin/Globulin Ratio 1.1 (1.1-1.8); Globulin 2.6 g/dL (1.3-3.2); Total Protein,Serum 5.5 g/dl (6.3-8.2)
[2022-10-13 10:40] LABS: Lactic Acid 1.3 mmol/L (0.7-2.1)
[2022-10-13 10:46] LABS: Ammonia 103 umol/L (9-30)
--- NOTE | 2022-10-13 10:46 | ECG_ITS ---
APPROVED REPORT Exam: Resting ECG HR:107 bpm ECG Measurements Heart Rate 107 AXES UT 156 P 53 QRSd 3 QRS 0 QT 191 T -49 QTc 254 Conclusion SINUS TACHYCARDIA WITH FREQUENT VENTRICULAR PREMATURE COMPLEXES Left axis deviation ST TW changes previously noted UNCONFIRMED REPORT Electronically signed by : John Rosado MD 10/15/2022 21:48:27
--- NOTE | 2022-10-13 12:00 | INFXCTL.NOTE ---
DR. BECK SPEAKING WITH DR. ZHAO
--- NOTE | 2022-10-13 12:01 | PC.NURSE ---
[employer]ILATION EQUIPMENT TENDER NOTIFIED OF ADMISSION AND BED REQUEST
--- NOTE | 2022-10-13 12:02 | PC.NURSE ---
house called for admission
--- NOTE | 2022-10-13 12:40 | EXP.HP ---
History of Present Illness *Admission Date: 10/13/22 *Reason for visit:: Confusion *History of present illness: Ms. Moctezuma is an 81-year-old female with known history of cirrhosis, recurring hepatic encephalopathy, hypertension, hyperlipidemia, diabetes, dementia, CAD, CHF who presented to the ER as a transfer from [facility] due to worsening confusion. Similar presentation of altered mental status 2 weeks ago. Patient was noted to have confusion on arrival, perseverating speech. Has been refusing lactulose prior to transport and worsening mental status/encephalopathy for the past few days. Previous history of GI bleed, PCI 10 months ago with drug-eluting stents, A. fib on chronic anticoagulation. Unable to obtain any further history from patient. Is noted to have significant peripheral edema. Labs obtained concerning for chronic anemia and elevated ammonia at 100. Treated with dose of lactulose rectally and admitted to medicine for further management. After arrival to the floor, patient remains somnolent. When asked questions, she will just say come on, come on, come on, come on . Hemodynamically stable. Afebrile. Catheter in place draining light yellow urine. [facility] Disclaimer: The information contained in this section may have been updated after the patient was seen, as this information can be updated by other users. Reviewed per chart, unable to obtain from Medical History Abnormal cardiovascular stress test Anxiety and depression Atherosclerotic heart disease CAD (coronary artery disease) Chest pain Chronic kidney disease Diabetes mellitus Diabetes mellitus Dizziness Dyspnea Edema Encounter for pre-operative cardiovascular clearance Fatty liver History of anemia History of transient ischemic attack (TIA) HLD (hyperlipidemia) HTN (hypertension) Hyperkalemia Hypothyroidism Near syncope Non-ST elevated myocardial infarction (non-STEMI) Stroke UTI (urinary tract infection) Family History Cancer Hypertension Social History Smoking Status: Never smoker alcohol intake: never substance use type: denies use current occupational status: retired Travel in the last 8 weeks: None household members: none housing: custodial current occupational exposures/hazards: No caffeine: No Review of Systems Review of Systems Review of systems:: unable to obtain Meds Home Medications and Allergies Home Medications Medication Instructions Recorded Confirmed Type cyanocobalamin (vitamin B-12) 1,000 mcg PO DAILY Supplement 02/10/18 10/09/22 History 1,000 mcg tablet (Vitamin B-12) calcium carbonate 600 mg-vitamin 1 tab PO DAILY Supplement 02/05/21 10/09/22 History D3 20 mcg (800 unit) tablet carvedilol 6.25 mg tablet 6.25 mg PO BID Hypertension 02/05/21 10/09/22 History clopidogrel 75 mg tablet 75 mg PO DAILY coronary artery 03/24/21 10/09/22 History disease pantoprazole 40 mg tablet,delayed 40 mg PO DAILY acid reflux 03/31/21 10/09/22 History release ropinirole 0.25 mg tablet 0.25 mg PO HS restless leg syndrome 04/10/21 10/09/22 History potassium chloride 10 mEq 10 meq PO DAILY Supplement 09/03/21 10/09/22 History capsule,extended release acetaminophen 500 mg tablet 500 mg PO Q4HP PRN PAIN/FEVER 10/02/21 10/09/22 History spironolactone 25 mg tablet 25 mg PO BID Edema 12/16/21 10/09/22 History fluticasone propionate 50 2 spray intranasal DAILY alleriges 02/26/22 10/09/22 History mcg/actuation nasal spray,suspension rifaximin 550 mg tablet 550 mg PO BID HEPATIC 03/14/22 10/09/22 History ENCEPHALOPATHY insulin glargine 100 unit/mL 15 units SQ HS Diabetes 03/15/22 10/09/22 History subcutaneous solution insulin human U-100 NPH-regulr 30 unit SQ DAILY Diabetes 03/15/22 10/09/22 History 70-30 mix 100 unit/mL s
--- NOTE | 2022-10-13 13:26 | PC.NURSE ---
REPORT GIVEN TO Susan CHANG RN
--- NOTE | 2022-10-13 13:46 | PC.NURSE ---
DR. ZHAO UPDATED ON BLOODY STOOL. V/O R/V.
--- NOTE | 2022-10-13 13:55 | PC.NURSE ---
Pt arrived to the floor at this time
[2022-10-13 16:04] LABS: Thyroid Stimulating Hormone 6.66 uIU/mL (0.465-4.68)
[2022-10-13 21:50] LABS: POC Glucose,Bedside 203 (70-110)
[2022-10-13 21:50] LABS: POC Glucose,Bedside 139 (70-110)
[2022-10-14] VITALS (7 sets, daily range): BP systolic 130–160; BP diastolic 58–71; PULSE 70–83; RESP 14–18; TEMP 36.8–37.1; O2SAT 96–100; BMI 39.2
[2022-10-14 01:35] LABS: POC Glucose,Bedside 149 (70-110)
[2022-10-14 02:14] LABS: Hematocrit 27.6 % (37.0-47.0)
[2022-10-14 05:39] LABS: POC Glucose,Bedside 142 (70-110)
[2022-10-14 08:17] LABS: Basophils # 0.1 K/mm3 (0-0.2); Basophils % 0.9 % (0.1-2.0); Eosinophils # 0.3 K/mm3 (0.0-0.4); Eosinophils % 6.4 % (0.1-12.0); Hemoglobin 8.8 g/dL (12.2-16.2); Lymphocytes # 1.3 K/mm3 (0.7-4.5); Lymphocytes % 24.3 % (10-50); Mean Corpuscular HGB Conc 33.9 g/dL (31.8-35.4); Mean Corpuscular Hemoglobin 29.8 pg (27.0-31.2); Mean Corpuscular Volume 87.8 fl (81-99); Monocytes # 0.4 K/mm3 (0.1-1.0); Monocytes % 8.2 % (1.7-9.3); Neutrophils # 3.1 K/mm3 (1.8-7.8); Neutrophils % 60.1 % (37.0-80.0); Platelet Count 469 K/mm3 (142-424); Red Blood Count 2.96 M/mm3 (4.20-5.40); Red Cell Distribution Width 18.2 % (11.5-17.5); White Blood Count 5.2 K/mm3 (4.8-10.8)
[2022-10-14 08:18] LABS: Chloride 113 mmol/L (98-107); Sodium 145 mmol/L (136-145)
[2022-10-14 08:19] LABS: Potassium 3.5 mmoL/L (3.5-5.1)
[2022-10-14 08:21] LABS: Alanine Aminotransferase 18 U/L (12-78); Alkaline Phosphatase 113 U/L (38-126); Anion Gap 7.5 mEq/L (5-15); Aspartate Amino Transferase 30 U/L (14-36); Bilirubin,Total 0.4 mg/dl (0.2-1.3); Blood Urea Nitrogen 27 mg/dl (7-17); Carbon Dioxide 28 mmol/L (22.0-30.0); Creatinine Clearance Estimated 42 mL/min (50-200); Estimated Glomerular Filt Rate 29 ml/min (>60); GFR (African American) 35 ML/MIN (>60)
[2022-10-14 08:22] LABS: Albumin Level 2.5 g/dl (3.5-5.0); Albumin/Globulin Ratio 1.1 (1.1-1.8); Calcium 8.1 mg/dl (8.4-10.2); Globulin 2.3 g/dL (1.3-3.2); Glucose 132 mg/dl (74-100); Magnesium 1.8 mg/dl (1.6-2.3); Total Protein,Serum 4.8 g/dl (6.3-8.2)
[2022-10-14 08:23] LABS: Ammonia 61 umol/L (9-30)
[2022-10-14 11:43] LABS: POC Glucose,Bedside 143 (70-110)
--- NOTE | 2022-10-14 12:01 | P.CONPHA_ITS ---
Pharmacy Intervention Comments: MEDICATION RECONCILIATION COMPLETE USING MAR FROM [facility].
--- NOTE | 2022-10-14 12:01 | HMH.PHAINT1 ---
Pharmacy Intervention Comments: MEDICATION RECONCILIATION COMPLETE USING MAR FROM [facility].
--- NOTE | 2022-10-14 13:39 | EXP.ACUTE.PN ---
Subjective *Date: 10/14/22 *Time: 13:39 Interval history: Patient pleasant overnight. Showing improvement in mentation this morning. Still confused but able to answer some questioning. Responds to verbal stimuli. Denies nausea, chest pain, shortness of breath, vomiting. Ammonia improving. Diuresing well with -2.4 L in the past 24 hours. Remains afebrile, hemodynamically stable. Able to take morning meds by mouth. Medical Exam Vital signs and Labs for Last 24 Hours: Vital Signs Temp Pulse Pulse Resp BP BP Pulse Ox 10/14/22 08:00 98.2 F 78 17 154/69 H 99 10/14/22 04:00 98.6 F 78 18 130/58 L 100 10/14/22 02:17 98.6 F 83 14 149/64 H 99 10/14/22 01:20 98.8 F 82 14 159/66 H 98 10/14/22 00:25 98.8 F 82 14 160/63 H 99 10/13/22 23:25 98.7 F 79 14 155/80 H 100 10/13/22 23:10 98.6 F 78 14 164/72 H 100 10/13/22 22:55 98.7 F 86 14 160/62 H 100 10/13/22 22:40 98.8 F 82 14 160/65 H 100 10/13/22 22:35 98.6 F 81 14 151/60 H 100 10/13/22 22:30 98.6 F 83 14 133/61 99 10/13/22 22:25 99.1 F 83 14 127/53 L 99 10/13/22 22:18 98.6 F 82 14 139/50 L 99 10/13/22 20:44 98.6 F 85 14 133/64 99 10/13/22 19:05 98.3 F 83 18 152/62 H 100 10/13/22 18:05 98.2 F 86 18 150/66 H 100 10/13/22 17:50 98.9 F 84 18 152/54 H 100 10/13/22 17:35 98.7 F 83 18 154/57 H 99 10/13/22 17:20 98.4 F 82 18 160/61 H 99 10/13/22 17:15 98 F 83 18 160/58 H 98 10/13/22 16:00 98.2 F 86 16 130/67 98 10/13/22 17:10 98.5 F 83 18 163/60 H 99 10/13/22 17:05 98.6 F 84 18 144/63 H 98 10/13/22 17:00 98.5 F 85 18 122/55 L 99 10/13/22 13:59 98.4 F 87 18 150/78 H 93 L 10/13/22 13:50 98.9 F 87 17 128/50 L Intake and Output 10/13/22 10/14/22 10/14/22 23:59 07:59 15:59 Intake Total 250 / 250 0 / 0 0 / 0 Output Total 1200 / 1675 1000 / 1000 0 / 1000 Balance -950 / -1425 -1000 / -1000 0 / -1000 Intake: Intake, Oral Amount 0 / 0 0 / 0 Intake (Blood Product) Amt 250 / 250 0 / 0 Red Blood Cells Unit 0 / 0 [id number] Red Blood Cells Unit 250 / 250 0 / 0 [id number] Output: Output, Urine Amount 1200 / 1675 0 / 0 Output, Urine Amount (Catheter) 1000 / 1000 Dillard 1000 / 1000 Other: Number of Unmeasured Voids 0 Number of Bowel Movements 1 Weight 104.3 kg Patient Weight 10/14/22 23:59 Weight 104.3 kg Laboratory Results - last 24 hr 10/13/22 10:20: TSH 6.66 H 10/13/22 14:30: Blood Type A Positive, Antibody Screen Negative, Crossmatch (AHG) See Detail 10/13/22 17:14: POC Glucose 139 H 10/13/22 21:32: POC Glucose 203 H 10/14/22 01:23: POC Glucose 149 H 10/14/22 02:00: Hgb 9.0 L D, Hct 27.6 L 10/14/22 05:23: POC Glucose 142 H 10/14/22 08:00: WBC 5.2, RBC 2.96 L, Hgb 8.8 L, Hct 26.0 L, MCV 87.8, MCH 29.8, MCHC 33.9, RDW 18.2 H, Plt Count 469 H, MPV 8.0, Neut % (Auto) 60.1, Lymph % (Auto) 24.3, [place] % (Auto) 8.2, Eos % (Auto) 6.4, Baso % (Auto) 0.9, Neut # (Auto) 3.1, Lymph # (Auto) 1.3, [place] # (Auto) 0.4, Eos # (Auto) 0.3, Baso # (Auto) 0.1 10/14/22 08:00: Sodium 145, Potassium 3.5, Chloride 113 H, Carbon Dioxide 28, Anion Gap 7.5, BUN 27 H, Creatinine 1.70 H, Estimated Creat Clear 42, Estimated GFR 29 L, Est GFR ( Amer) 35 L, Glucose 132 H D, Calcium 8.1 L, Magnesium 1.8, Total Bilirubin 0.4, AST 30, ALT 18, Alkaline Phosphatase 113, Total Protein 4.8 L, Albumin 2.5 L D, Globulin 2.3, Albumin/Globulin Ratio 1.1 10/14/22 08:00: Ammonia 61 H 10/14/22 11:29: POC Glucose 143 H I & O for Labs for Last 24 Hours: Intake & Output 10/11/22 10/12/22 10/13/22 10/14/22 23:59 23:59 23:59 23:59 Intake Total 250 / 250 0 / 0 Output Total 1675 / 1675 1000 / 1000 Balance -1425 / -1425 -1000 / -1000 Weight 103.532 kg 104.3 kg Microbiology Reports for the Last 24 Hours: Microbiology 10/13/22 10:07 Urine,Cathet
[2022-10-14 17:38] LABS: POC Glucose,Bedside 162 (70-110)
--- NOTE | 2022-10-14 18:00 | EXP.DC.SUM ---
General Admission date:: 10/13/22 Discharge date: 10/15/22 HPI HPI HPI: Ms. Moctezuma is an 81-year-old female with known history of cirrhosis, recurring hepatic encephalopathy, hypertension, hyperlipidemia, diabetes, dementia, CAD, CHF who presented to the ER as a transfer from [facility] due to worsening confusion. Similar presentation of altered mental status 2 weeks ago. Patient was noted to have confusion on arrival, perseverating speech. Has been refusing lactulose prior to transport and worsening mental status/encephalopathy for the past few days. Previous history of GI bleed, PCI 10 months ago with drug-eluting stents, A. fib on chronic anticoagulation. Unable to obtain any further history from patient. Is noted to have significant peripheral edema. Labs obtained concerning for chronic anemia and elevated ammonia at 100. Treated with dose of lactulose rectally and admitted to medicine for further management. After arrival to the floor, patient remains somnolent. When asked questions, she will just say come on, come on, come on, come on . Hemodynamically stable. Afebrile. Catheter in place draining light yellow urine. Hospital Course Hospital Course Hospital Course: 81-year-old female with extensive past medical history including cirrhosis.? Presented with hepatic encephalopathy.? Admitted to medicine for further management.? Problems addressed as follows: Hepatic encephalopathy Nonalcoholic fatty liver disease Cirrhosis -Admitted with elevated ammonia of 103. Showed improvement within 24 hours to 61. Continuing lactulose initially administered rectally. Recommend continuing oral 4 times a day after discharge. Continue rifaximin. Goal of 2-3 bowel movements a day. If patient unable to tolerate oral lactulose once back to custodial, please administer rectally as this shows good response each time she has been in the hospital with us. More or less back to baseline mentation. Stable for discharge back to nursing facility. Tolerating all meds and nutrition orally at this time. Volume overload CHF A. fib CAD -Continue home medications including carvedilol, Plavix, spironolactone, aspirin. Initially on IV Lasix. Transition back to oral Bumex at discharge. Had good urine output. Given history of GI bleeds, feel anticoagulation is higher risk than benefit at this time.? Discontinue Xarelto. No indication to continue at this time, risk outweighs benefit. Would also recommend considering stopping aspirin in November (12 months after her last heart cath). Continue only on Plavix at that time. This is in an attempt to decrease recurrent anemia and need for transfusions. Hypothyroidism - Frankly hyperthyroid at last visit.? Repeat TSH 6.6 this visit. Resume levothyroxine at 125 mcg. Diabetes -Treated with lower dose glargine during hospitalization and sliding scale. Recommend resuming outpatient regimen at discharge. Medically stable for discharge back to nursing facility. Would continue to benefit from PT/OT to increase mobility. Exam Data for Last 24 hours Vital signs and Labs for Last 24 Hours: Temp Pulse Resp BP Pulse Ox 98.3 F 77 17 154/71 H 96 10/14/22 15:25 10/14/22 15:25 10/14/22 15:25 10/14/22 15:25 10/14/22 15:25 Laboratory Results - last 24 hr 10/13/22 14:30: Blood Type A Positive, Antibody Screen Negative, Crossmatch (AHG) See Detail 10/13/22 17:14: POC Glucose 139 H 10/13/22 21:32: POC Glucose 203 H 10/14/22 01:23: POC Glucose 149 H 10/14/22 02:00: Hgb 9.0 L D, Hct 27.6 L 10/14/22 05:23: POC Glucose 142 H 10/14/22 08:00: WBC 5.2, RBC 2.96 L, Hgb 8.8 L, Hct 26.0 L, MCV 87.8, MCH 29.8, MCHC 33.9, RDW 18.2 H, Plt Count 469 H, MPV 8.0, Neut % (Auto) 60.1, Lymph % (Auto) 24.3, [place] % (Auto) 8.2, Eos % (Auto) 6.4, Baso % (Auto) 0.9, Neut # (Auto) 3.1, Lymph # (Auto) 1.3, [place] # (Auto) 0.4, Eos # (Auto) 0.3, Baso # (Auto) 0.1 10/14/22 08:00: Sodium 145, Potassium 3.5, Chl
--- NOTE | 2022-10-14 18:55 | PC.NURSE ---
pt able to take po medications this shift. she has been more alert this shift.
[2022-10-15 00:20] LABS: POC Glucose,Bedside 145 (70-110)
[2022-10-15 04:00] VITALS: BP 135/92; PULSE 69; RESP 16; TEMP 36.9; O2SAT 96; BMI 38.8
[2022-10-15 04:24] LABS: POC Glucose,Bedside 130 (70-110)
--- NOTE | 2022-10-15 06:13 | PC.NURSE ---
patient had no complaints through the night. d/c cervantes, tolerated well. purewick was placed. room air.
[2022-10-15 06:21] LABS: POC Glucose,Bedside 134 (70-110)
[2022-10-15 06:36] LABS: Basophils # 0.1 K/mm3 (0-0.2); Eosinophils # 0.3 K/mm3 (0.0-0.4); Eosinophils % 6.4 % (0.1-12.0); Hemoglobin 8.3 g/dL (12.2-16.2); Lymphocytes # 1.6 K/mm3 (0.7-4.5); Lymphocytes % 32.4 % (10-50); Mean Corpuscular HGB Conc 33.1 g/dL (31.8-35.4); Mean Corpuscular Hemoglobin 28.8 pg (27.0-31.2); Mean Corpuscular Volume 87.1 fl (81-99); Mean Platelet Volume 8.3 fl (7.4-10.4); Monocytes # 0.5 K/mm3 (0.1-1.0); Monocytes % 9.1 % (1.7-9.3); Neutrophils # 2.6 K/mm3 (1.8-7.8); Neutrophils % 51.1 % (37.0-80.0); Platelet Count 436 K/mm3 (142-424); Red Blood Count 2.87 M/mm3 (4.20-5.40); Red Cell Distribution Width 17.8 % (11.5-17.5); White Blood Count 5.1 K/mm3 (4.8-10.8)
[2022-10-15 06:49] LABS: Alanine Aminotransferase 17 U/L (12-78); Albumin Level 2.4 g/dl (3.5-5.0); Albumin/Globulin Ratio 1.1 (1.1-1.8); Alkaline Phosphatase 103 U/L (38-126); Anion Gap 2.2 mEq/L (5-15); Aspartate Amino Transferase 29 U/L (14-36); Bilirubin,Total 0.4 mg/dl (0.2-1.3); Blood Urea Nitrogen 22 mg/dl (7-17); Calcium 7.6 mg/dl (8.4-10.2); Carbon Dioxide 29 mmol/L (22.0-30.0); Chloride 110 mmol/L (98-107); Creatinine Clearance Estimated 45 mL/min (50-200); Estimated Glomerular Filt Rate 33 ml/min (>60); GFR (African American) 40 ML/MIN (>60); Globulin 2.2 g/dL (1.3-3.2); Glucose 122 mg/dl (74-100); Magnesium 1.8 mg/dl (1.6-2.3); Potassium 3.2 mmoL/L (3.5-5.1); Sodium 138 mmol/L (136-145); Total Protein,Serum 4.6 g/dl (6.3-8.2)
[2022-10-15 08:00] VITALS: BP 137/59; PULSE 62; RESP 20; TEMP 36.8; O2SAT 94
--- NOTE | 2022-10-15 11:43 | CARE MANAGER ---
Patient to return to [facility]. Shikha faustin. Patient is [facility] level of care. JWilliams. KEBEDE
--- NOTE | 2022-10-16 13:30 | CARE MANAGER ---
Spoke with patient's son, Jayson. He states mom is doing better and denies any questions or concerns. YANDY Harrington
== END 2022-10-15 12:54 | DRG 443 ==
LOC: ER 12:07 → 2ND 12:12
PROVIDERS: Admitting Provider Internal Medicine Adolescent Medicine; Emergency Provider Emergency Medicine; PCP Emergency Medicine; Visit Provider Internal Medicine Adolescent Medicine
DX: K76.82 Hepatic encephalopathy (principal); K74.60 Unspecified cirrhosis of liver; Z79.01 Long term (current) use of anticoagulants; I48.91 Unspecified atrial fibrillation; Z79.4 Long term (current) use of insulin; I25.10 Atherosclerotic heart disease of native coronary artery without angina pectoris; E11.22 Type 2 diabetes mellitus with diabetic chronic kidney disease; I12.9 Hypertensive chronic kidney disease with stage 1 through stage 4 chronic kidney disease, or unspecified chronic kidney disease; N18.9 Chronic kidney disease, unspecified; E78.5 Hyperlipidemia, unspecified; Z86.73 Personal history of transient ischemic attack (TIA), and cerebral infarction without residual deficits; E05.90 Thyrotoxicosis, unspecified without thyrotoxic crisis or storm; E03.9 Hypothyroidism, unspecified
CPT/HCPCS: 36415; 71045; 80053; 81001; 82140; 82962; 83605; 83735; 84145; 84443; 85014; 85018; 85025; 86140; 86850; 87040; 87086; 87088; 87186; 93005; 99285; C9803; J0696; P9016; U0003; U0005

== ENCOUNTER → 2023-03-15 14:44 | Outpatient (CLI) | payer MEDICARE, OTHER, SELFPAY ==
[2023-03-15 16:01] LABS: Basophils % 0.1 % (0.1-2.0); Eosinophils # 0.1 K/mm3 (0.0-0.4); Eosinophils % 0.9 % (0.1-12.0); Hematocrit 33.1 % (37.0-47.0); Lymphocytes # 1.3 K/mm3 (0.7-4.5); Lymphocytes % 11.8 % (10-50); Mean Corpuscular HGB Conc 30.3 g/dL (31.8-35.4); Mean Corpuscular Hemoglobin 29.4 pg (27.0-31.2); Mean Platelet Volume 8.3 fl (7.4-10.4); Monocytes # 0.6 K/mm3 (0.1-1.0); Monocytes % 5.3 % (1.7-9.3); Neutrophils # 9.2 K/mm3 (1.8-7.8); Neutrophils % 81.8 % (37.0-80.0); Platelet Count 348 K/mm3 (142-424); Red Blood Count 3.41 M/mm3 (4.20-5.40); Red Cell Distribution Width 16.7 % (11.5-17.5); White Blood Count 11.2 K/mm3 (4.8-10.8)
[2023-03-15 16:20] LABS: Iron 33 ug/dL (37-170)
[2023-03-15 16:26] LABS: Alanine Aminotransferase 16 U/L (12-78); Albumin Level 3.4 g/dl (3.5-5.0); Albumin/Globulin Ratio 1.1 (1.1-1.8); Alkaline Phosphatase 157 U/L (38-126); Aspartate Amino Transferase 21 U/L (14-36); Bilirubin,Total 0.2 mg/dl (0.2-1.3); Blood Urea Nitrogen 22 mg/dl (7-17); Carbon Dioxide 16 mmol/L (22.0-30.0); Chloride 114 mmol/L (98-107); Estimated Glomerular Filt Rate 24 ml/min (>60); GFR (African American) 29 ML/MIN (>60); Glucose 132 mg/dl (74-100); Sodium 142 mmol/L (136-145); Total Protein,Serum 6.4 g/dl (6.3-8.2)
[2023-03-15 16:29] LABS: Total Iron Binding Capacity 314 ug/dL (265-497)
[2023-03-15 17:32] LABS: Vitamin B12 824 pg/mL (239-931)
[2023-03-15 17:35] LABS: Folate > 20.00 ng/mL
[2023-03-17 08:13] LABS: Haptoglobin 273 mg/dL (41-333)
[2023-03-17 14:51] LABS: Peripheral Smear Review Scanned Result
== END ==
PROVIDERS: PCP Emergency Medicine; Visit Provider Internal Medicine Medical Oncology
DX: D64.9 Anemia, unspecified (principal); D50.8 Other iron deficiency anemias
CPT/HCPCS: 36415; 80053; 82607; 82746; 83010; 83540; 83550; 85025

== ENCOUNTER 2023-03-27 13:10 | Outpatient (CLI) | payer MEDICARE, OTHER, SELFPAY ==
[2023-03-27 13:30] VITALS: BP 163/53; PULSE 88; RESP 18; O2SAT 97
[2023-03-27 14:20] VITALS: BP 128/50; PULSE 68; RESP 18; O2SAT 96
== END 2023-03-27 14:20 | disposition home or self-care (01) ==
PROVIDERS: PCP Emergency Medicine; Visit Provider Internal Medicine Medical Oncology
DX: N18.30 Chronic kidney disease, stage 3 unspecified (principal); I12.9 Hypertensive chronic kidney disease with stage 1 through stage 4 chronic kidney disease, or unspecified chronic kidney disease; N28.9 Disorder of kidney and ureter, unspecified; D63.1 Anemia in chronic kidney disease
CPT/HCPCS: 96365; J1756

== ENCOUNTER 2023-04-03 13:21 | Outpatient (CLI) | payer MEDICARE, OTHER, SELFPAY ==
--- NOTE | 2023-04-03 16:15 | PC.NURSE ---
1415 - HANG FLANAGAN, TAD POMPA, AND RICHI RAPP EACH ATTEMPTED IV STICKS X2 WITHOUT SUCCESS. OFFERED TO GET SOMEONE TO ATTEMPT IV INSERTION USING ULTRASOUND BUT PT DENIES, STATING THAT SHE WOULD RATHER WAIT AND DO INFUSION ANOTHER DAY. RESCHEDULED PT FOR VENOFER INFUSION ON 04/08/23.
== END 2023-04-03 14:25 | disposition home or self-care (01) ==
LOC: INF 13:22
PROVIDERS: PCP Emergency Medicine; Visit Provider Internal Medicine Medical Oncology
DX: D64.9 Anemia, unspecified (principal)

== ENCOUNTER 2023-04-08 08:30 | Outpatient (CLI) | payer MEDICARE, OTHER, SELFPAY ==
[2023-04-08 09:35] VITALS: BP 160/61; PULSE 68; RESP 16; TEMP 36.5; O2SAT 98
[2023-04-08 10:18] VITALS: BP 148/59; PULSE 68; RESP 16; TEMP 36.5; O2SAT 97
== END 2023-04-08 10:30 | disposition home or self-care (01) ==
LOC: INF 08:31
PROVIDERS: PCP Emergency Medicine; Visit Provider Internal Medicine Medical Oncology
DX: D50.9 Iron deficiency anemia, unspecified (principal); D64.9 Anemia, unspecified; N18.30 Chronic kidney disease, stage 3 unspecified; N28.9 Disorder of kidney and ureter, unspecified; I12.9 Hypertensive chronic kidney disease with stage 1 through stage 4 chronic kidney disease, or unspecified chronic kidney disease
CPT/HCPCS: 96365; J1756

== ENCOUNTER 2023-04-14 12:57 | Emergency (ER) | payer MEDICARE, OTHER, SELFPAY ==
[2023-04-14] VITALS (9 sets, daily range): BP systolic 105–133; BP diastolic 47–74; PULSE 54–64; RESP 20; TEMP 36.4; O2SAT 97–100; BMI 42.9
--- NOTE | 2023-04-14 12:56 | ECG_ITS ---
APPROVED REPORT Exam: Resting ECG HR:57 bpm ECG Measurements Heart Rate 57 AXES NJ 196 P -77 QRSd 120 QRS -45 QT 437 T 46 QTc 431 Conclusion SINUS BRADYCARDIA POSSIBLE RIGHT VENTRICULAR CONDUCTION DELAY [RSR (QR) IN V1/V2] LEFT ANTERIOR FASCICULAR BLOCK [QRS AXIS <= -45, QR IN I, RS IN II] POSSIBLE ANTERIOR MYOCARDIAL INFARCTION , OF INDETERMINATE AGE [30 ms Q WAVE IN V3/V4, OR R < 0.2 mV IN V4] ABNORMAL ECG UNCONFIRMED REPORT Electronically signed by : John Rosado MD 04/15/2023 07:15:52
--- NOTE | 2023-04-14 13:32 | PC.NURSE ---
ER MD Barriga at
--- NOTE | 2023-04-14 13:38 | XR_ITS ---
PROCEDURE INFORMATION: Exam: XR Chest Exam date and time: 04/14/2023 1:42 PM Age: 82 years old Clinical indication: Cough TECHNIQUE: Imaging protocol: Radiologic exam of the chest. Views: 1 view. COMPARISON: CR XR CHEST PORTABLE 10/12/2022 3:57 PM FINDINGS: Lungs: No new airspace consolidation or nodules. Curvilinear and reticulonodular opacities in the lung bases are unchanged. No vascular congestion. Pleural spaces: No pleural effusion. No pneumothorax. Heart/Mediastinum: Borderline cardiomegaly is unchanged. 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 IMPRESSION: No acute findings in the chest. No interval change since 10/12/2022.
--- NOTE | 2023-04-14 13:41 | HMH.EDGENADL ---
Discharge Plan Disposition Patient Disposition: Admitted Condition: Good Prescriptions Prescriptions: No Action cyanocobalamin (vitamin B-12) [Vitamin B-12] 1,000 mcg tablet 1,000 mcg PO DAILY clopidogrel 75 mg tablet 75 mg PO DAILY Hold Instructions: Resume on 04/16/22. if no further bleeding Patient Comments: TAKE 1 TABLET BY MOUTH EVERY DAY ondansetron HCl 4 mg tablet 4 mg PO Q4HP PRN (Reason: Nausea) bumetanide 1 mg tablet 1 mg PO BID Qty: 60 5RF albuterol sulfate 0.63 mg/3 mL solution for nebulization 0.63 mg inhalation QID PRN (Reason: Breathing Problems) ropinirole 0.25 MG tablet 0.25 mg PO HS potassium chloride 10 MEQ capsule, extended release 10 meq PO DAILY acetaminophen 500 MG tablet 500 mg PO Q4HP PRN (Reason: PAIN/FEVER) escitalopram oxalate [Lexapro] 10 mg Tablet 10 mg PO DAILY ranolazine [Ranexa] 500 mg tablet extended release 12 hr 500 mg PO BID multivitamin with iron-mineral Tablet 1 tab PO DAILY trazodone 50 mg Tablet 25 mg PO HS promethazine 25 mg Suppository 25 mg CA Q6H PRN (Reason: Nausea And Vomiting) levothyroxine 150 mcg Tablet 150 mcg PO DAILY carvedilol 6.25 MG tablet 6.25 mg PO BID pantoprazole 40 MG tablet,delayed release (DR/EC) 40 mg PO DAILY spironolactone 25 MG tablet 25 mg PO BID fluticasone propionate 16 GM spray,suspension 2 spray NS DAILY rifaximin 550 MG tablet 550 mg PO BID insulin glargine 100 UNIT/ML solution 15 units SQ HS insulin NPH and regular human 100 UNIT/ML suspension 30 unit SQ DAILY ferrous sulfate 325 mg (65 mg iron) Tablet 325 mg PO DAILY calcium carbonate-vitamin D3 600 mg-20 mcg (800 unit) Tablet 1 tab PO DAILY insulin aspart U-100 [Novolog FlexPen U-100 Insulin] 100 unit/mL (3 mL) Insulin Pen 0 sliding scale dose SQ ACHS Protocol: Insulin Corrective Low-Dose Regimen Condition: Fingerstick Blood Glucose Dose/Route: Insulin Units Condition: 200-250 mg/dl Dose/Route: 2 units/SQ Condition: 251-300 mg/dl Dose/Route: 4 units/SQ Condition: 301-350 mg/dl Dose/Route: 6 units/SQ Condition: 351-400 mg/dl Dose/Route: 8 units/SQ Condition: > 400 mg/dl Dose/Route: CALL MD Protocol Text: Low Intensity Sliding Scale Insulin lactulose 10 GM/15 ML solution 45 ml PO TID 30 Days Qty: 4050 0RF Rx Instructions: If not taking PO, OK to give rectally Referrals Follow up/Referrals: Jewel Morrow MD [Primary Care Provider] - See instructions Clinical Impressions Clinical Impression: CONOR (acute kidney injury), Weakness Discharge ED Provider: Matti Barriga General Adult HPI General Chief complaint: Weakness Stated complaint: weakness Time Seen by Provider: 04/14/23 12:58 Mode of Arrival: EMS Source of Information: Patient Limitations: No Limitations Description of Symptoms (Recalled from ER Triage Doc. by RN): pt to ed c/o generalized weakness and bilateral leg edema. pt states she woke up this morning and just didn't feel good. pt denies any new pain. History of Present Illness HPI narrative: Patient is a 82-year-old female past medical history of insulin-dependent diabetes, hypertension, hyperlipidemia, heart failure with preserved ejection fraction, previous NSTEMI status post stenting, cirrhosis on lactulose who presents emergency department for evaluation of weakness and cough. Onset was acute, approximately 6 days ago. At baseline patient has edema of her lower extremities, is wheelchair-bound, intermediate resident. Patient states that she has had cough and weakness that is worse than her baseline that is more difficult for her to further qualify. Adequate p.o. intake although patient has had a few episodes of vomiting and associated nausea. Adequate urine output. Still stooling. Denies abdominal pain. Denies chest pain however does have intermi
[2023-04-14 13:48] LABS: Basophils % 0.2 % (0.1-2.0); Eosinophils # 0.1 K/mm3 (0.0-0.4); Eosinophils % 1.6 % (0.1-12.0); Hematocrit 34.3 % (37.0-47.0); Lymphocytes # 1.2 K/mm3 (0.7-4.5); Lymphocytes % 13.8 % (10-50); Mean Corpuscular Hemoglobin 28.8 pg (27.0-31.2); Mean Corpuscular Volume 99.2 fl (81-99); Mean Platelet Volume 8.6 fl (7.4-10.4); Monocytes # 0.5 K/mm3 (0.1-1.0); Monocytes % 4.9 % (1.7-9.3); Neutrophils # 7.2 K/mm3 (1.8-7.8); Neutrophils % 79.5 % (37.0-80.0); Platelet Count 360 K/mm3 (142-424); Red Blood Count 3.46 M/mm3 (4.20-5.40); Red Cell Distribution Width 16.4 % (11.5-17.5)
[2023-04-14 13:53] LABS: Alanine Aminotransferase 16 U/L (12-78); Albumin Level 3.2 g/dl (3.5-5.0); Alkaline Phosphatase 165 U/L (38-126); Anion Gap 14.9 mEq/L (5-15); Aspartate Amino Transferase 20 U/L (14-36); Bilirubin,Total 0.3 mg/dl (0.2-1.3); Blood Urea Nitrogen 33 mg/dl (7-17); Calcium 9.6 mg/dl (8.4-10.2); Carbon Dioxide 14 mmol/L (22.0-30.0); Chloride 115 mmol/L (98-107); Creatinine Clearance Estimated 11 mL/min (50-200); Estimated Glomerular Filt Rate 13 ml/min (>60); GFR (African American) 16 ML/MIN (>60); Globulin 3.1 g/dL (1.3-3.2); Glucose 154 mg/dl (74-100); Lipase 96 U/L (23-300); Potassium 4.9 mmoL/L (3.5-5.1); Sodium 139 mmol/L (136-145); Total Protein,Serum 6.3 g/dl (6.3-8.2)
[2023-04-14 13:54] LABS: Ammonia 58 umol/L (9-30)
[2023-04-14 14:02] LABS: NT Pro Brain Natriuretic Pep. 2470 pg/mL (0-450)
[2023-04-14 14:05] LABS: Troponin I 0.03 ng/ml (0.00-0.034)
--- NOTE | 2023-04-14 14:24 | PC.NURSE ---
notified green house manager of admission
[2023-04-14 14:42] LABS: VBG Base Excess -14.6 mmol/L (-2.4-2.3); VBG HCO3 14.1 mmol/L (23-30); VBG Oxygen Saturation 84.7 % (50-70); VBG PCO2 40.5 mmol/L (35-51); VBG PO2 54.8 mmol/L (28-40); VBG Total CO2 15.4 mmol/L (23-27)
[2023-04-14 14:43] LABS: VBG PH 7.16 mmol/L (7.31-7.41)
--- NOTE | 2023-04-14 14:45 | PC.NURSE ---
VBG results received from RT. VBG results provided to Dr. Barriga [id number].
[2023-04-14 15:02] LABS: Coronavirus 19, PCR Not Detected (NotDetected); Influenza A, PCR Not Detected (NotDetected); Influenza B, PCR Not Detected (NotDetected)
--- NOTE | 2023-04-14 15:10 | PC.NURSE ---
hospitalist came down to speak with ER MD Barriga, states he is concerned with pt needing dialysis, requesting we transfer pt. contacting [facility] for possible transfer at this time.
--- NOTE | 2023-04-14 15:15 | PC.NURSE ---
contacted rad to get a disc of images on pt.
[2023-04-14 15:20] LABS: Microscopic, Urine URINE MICROSCOPIC (MICROSCOPIC)
[2023-04-14 15:22] LABS: Appearance,Urine CLEAR (Clear); Bilirubin,Urine Negative (Negative); Blood, Urine Negative (Negative); Color,Urine YELLOW (Yellow); Glucose,Urine (UA) Negative (Negative); Ketones,Urine Negative (Negative); Leukocyte Esterase,Urine Negative (Negative); Nitrate,Urine Negative (Negative); PH,Urine 5.5 (5.0-8.5); Protein,Urine Negative (Negative); Specific Gravity, Urine 1.025 (1.005-1.030); Urobilinogen,Urine 0.2 EU/dl (0.2)
--- NOTE | 2023-04-14 15:24 | PC.NURSE ---
1510 call made to [facility] transfer center re: transporting to [facility] or [facility] because of possible need for dialysis
[2023-04-14 15:35] LABS: Bacteria,Urine Trace /lpf; RBC,Urine Occasional #/hpf (0-3); WBC,Urine Occasional #/hpf (0-3)
--- NOTE | 2023-04-14 15:48 | PC.NURSE ---
spoke with [facility], states he is going to try to get jina to call us back to speak about transfer
--- NOTE | 2023-04-14 16:43 | PC.NURSE ---
PC to son and daughter to inform them of transfer to [facility]
--- NOTE | 2023-04-14 16:44 | PC.NURSE ---
[facility] notified of need to transfer
== END 2023-04-14 17:43 | disposition admitted as inpatient to this hospital (09) ==
LOC: ER 14:24 → 2ND 14:41 → ER 16:46
PROVIDERS: Emergency Provider Emergency Medicine; PCP Emergency Medicine
DX: N17.9 Acute kidney failure, unspecified (principal); R53.1 Weakness; E11.22 Type 2 diabetes mellitus with diabetic chronic kidney disease; I13.0 Hypertensive heart and chronic kidney disease with heart failure and stage 1 through stage 4 chronic kidney disease, or unspecified chronic kidney disease; N18.9 Chronic kidney disease, unspecified; I50.32 Chronic diastolic (congestive) heart failure; I25.10 Atherosclerotic heart disease of native coronary artery without angina pectoris; E78.5 Hyperlipidemia, unspecified; K74.60 Unspecified cirrhosis of liver
CPT/HCPCS: 71045; 80053; 81001; 82140; 82803; 83690; 83880; 84484; 85025; 87636; 93005; 96360; 96361; 99285

== ENCOUNTER 2023-04-29 22:26 | Emergency (ER) | payer MEDICARE, OTHER, SELFPAY ==
[2023-04-29 22:26] VITALS: BP 165/64; PULSE 64; RESP 18; TEMP 36.9; O2SAT 96; BMI 41.5
--- NOTE | 2023-04-29 22:31 | HMH.EDGENADL ---
Discharge Plan Disposition Chief Complaint: Extremity Injury, Lower Prescriptions Prescriptions: No Action cyanocobalamin (vitamin B-12) [Vitamin B-12] 1,000 mcg tablet 1,000 mcg PO DAILY clopidogrel 75 mg tablet 75 mg PO DAILY Hold Instructions: Resume on 04/16/22. if no further bleeding Patient Comments: TAKE 1 TABLET BY MOUTH EVERY DAY ondansetron HCl 4 mg tablet 4 mg PO Q4HP PRN (Reason: Nausea) bumetanide 1 mg tablet 1 mg PO BID Qty: 60 5RF albuterol sulfate 0.63 mg/3 mL solution for nebulization 0.63 mg inhalation QID PRN (Reason: Breathing Problems) ropinirole 0.25 MG tablet 0.25 mg PO HS potassium chloride 10 MEQ capsule, extended release 10 meq PO DAILY acetaminophen 500 MG tablet 500 mg PO Q4HP PRN (Reason: PAIN/FEVER) escitalopram oxalate [Lexapro] 10 mg Tablet 10 mg PO DAILY ranolazine [Ranexa] 500 mg tablet extended release 12 hr 500 mg PO BID multivitamin with iron-mineral Tablet 1 tab PO DAILY trazodone 50 mg Tablet 25 mg PO HS promethazine 25 mg Suppository 25 mg MA Q6H PRN (Reason: Nausea And Vomiting) levothyroxine 150 mcg Tablet 150 mcg PO DAILY carvedilol 6.25 MG tablet 6.25 mg PO BID pantoprazole 40 MG tablet,delayed release (DR/EC) 40 mg PO DAILY spironolactone 25 MG tablet 25 mg PO BID fluticasone propionate 16 GM spray,suspension 2 spray NS DAILY rifaximin 550 MG tablet 550 mg PO BID insulin glargine 100 UNIT/ML solution 15 units SQ HS insulin NPH and regular human 100 UNIT/ML suspension 30 unit SQ DAILY ferrous sulfate 325 mg (65 mg iron) Tablet 325 mg PO DAILY calcium carbonate-vitamin D3 600 mg-20 mcg (800 unit) Tablet 1 tab PO DAILY insulin aspart U-100 [Novolog FlexPen U-100 Insulin] 100 unit/mL (3 mL) Insulin Pen 0 sliding scale dose SQ ACHS Protocol: Insulin Corrective Low-Dose Regimen Condition: Fingerstick Blood Glucose Dose/Route: Insulin Units Condition: 200-250 mg/dl Dose/Route: 2 units/SQ Condition: 251-300 mg/dl Dose/Route: 4 units/SQ Condition: 301-350 mg/dl Dose/Route: 6 units/SQ Condition: 351-400 mg/dl Dose/Route: 8 units/SQ Condition: > 400 mg/dl Dose/Route: CALL MD Protocol Text: Low Intensity Sliding Scale Insulin lactulose 10 GM/15 ML solution 45 ml PO TID 30 Days Qty: 4050 0RF Rx Instructions: If not taking PO, OK to give rectally Referrals Follow up/Referrals: Provider,Referral, [Primary Care Provider] - See instructions Activity Restrictions/Add. Instructions Additional Instructions/Restrictions: This laceration right lower extremity was under an immense amount of pressure given the subcutaneous edema and swelling and friable tissue. In order to try to reinforce the laceration I put Steri-Strips on either side of the laceration and sutures through the Steri-Strips in order to try to hold tension. On top of this Steri-Strips were then placed as an additional layer of support and a pressure dressing was applied. I would advise keeping a tight pressure dressing on this to keep subcutaneous edema to a minimum. It is highly possible that these wound edges will tear over time and that this tension will not hold. If the sutures to hold you need to have them removed in 7 to 10 days. Steri-Strips will need to be removed following that. If the skin tears through and the sutures do not hold I would recommend that you allow the wound to heal by secondary intention by placing antibiotic ointment on this daily and allowing it slowly close up over time. Return with any concerns. Clinical Impressions Clinical Impression: Laceration of leg, right Discharge ED Provider: Jude Barrera General Adult HPI General Chief complaint: Extremity Injury, Lower Stated complaint: right leg injury Time Seen by Provider: 04/29/23 22:26 History of Present Illness HPI narr
--- NOTE | 2023-04-29 22:47 | PC.NURSE ---
in room with patient at this time.
--- NOTE | 2023-04-29 23:05 | PC.NURSE ---
Report called to Emani Mortensen at [facility].
[2023-04-29 23:18] VITALS: BP 119/69; PULSE 66; RESP 16; TEMP 36.6; O2SAT 95
== END 2023-04-29 23:21 ==
PROVIDERS: Emergency Provider Student in an Organized Health Care Education/Training Program
DX: S81.811A Laceration without foreign body, right lower leg, initial encounter (principal); I13.0 Hypertensive heart and chronic kidney disease with heart failure and stage 1 through stage 4 chronic kidney disease, or unspecified chronic kidney disease; I50.32 Chronic diastolic (congestive) heart failure; N18.9 Chronic kidney disease, unspecified; E78.5 Hyperlipidemia, unspecified; I25.2 Old myocardial infarction; E03.9 Hypothyroidism, unspecified; I25.10 Atherosclerotic heart disease of native coronary artery without angina pectoris; F41.9 Anxiety disorder, unspecified; F32.A Depression, unspecified; E11.22 Type 2 diabetes mellitus with diabetic chronic kidney disease; Z86.73 Personal history of transient ischemic attack (TIA), and cerebral infarction without residual deficits
CPT/HCPCS: 12004; 99283

== ENCOUNTER 2023-05-01 12:45 | Inpatient (IN) | payer MEDICARE, OTHER, MEDICAID, SELFPAY ==
[2023-05-01] VITALS (8 sets, daily range): BP systolic 152–197; BP diastolic 60–83; PULSE 60–65; RESP 16–19; TEMP 36.7–36.8; O2SAT 89–97; BMI 39.9; BMI 40.9
--- NOTE | 2023-05-01 12:51 | XR_ITS ---
FINAL REPORT CLINICAL HISTORY: SOA COMPARISON: 04/14/2023 FINDINGS: SINGLE VIEW CHEST The heart size is normal. The mediastinum is normal. There is worsening bibasilar pulmonary opacities consistent with worrisome atelectasis or pneumonia. There is no pneumothorax. IMPRESSION: Worsening bibasilar pulmonary opacities consistent with recent atelectasis or pneumonia. Reviewed, Interpreted and Dictated by Sang Herzog III, MD Transcribed by Krishna Baig Authenticated and [facility]
--- NOTE | 2023-05-01 12:51 | HMH.EDGENADL ---
Discharge Plan Disposition Patient Disposition: Admitted Chief Complaint: Shortness of Breath/Dyspnea Clinical Impressions Clinical Impression: Hypoxemia CHF (congestive heart failure) Qualifiers: Heart failure type: unspecified Heart failure chronicity: acute Qualified Code(s): I50.9 - Heart failure, unspecified Discharge ED Provider: Kal Burr General Adult HPI General Chief complaint: Shortness of Breath/Dyspnea Stated complaint: Possible Aspiration Time Seen by Provider: 05/01/23 12:45 Mode of Arrival: EMS Source of Information: Patient and EMS Limitations: No Limitations History of Present Illness HPI narrative: This is an 82-year-old female with history of hypertension, hyperlipidemia, COPD not on daily oxygen, CHF, presenting with hypoxemia. Patient states that she is asymptomatic. She was at her [facility] just prior to arrival when she was given her medications. She got choked up on her medications while swallowing the water and started coughing. Reportedly, oxygen decreased to 86 to 88%, so EMS was called. On arrival, patient in no acute distress, conversational, noncyanotic, at her baseline. Patient 88 to 90% on room air, 95% on 2 L nasal cannula, transported to [facility]. Patient denies any current shortness of breath, fevers, cough, nausea or vomiting, lower extremity swelling, worsening PND orthopnea, chest pain, or any concerns at this time. Related Data Home Medications Medication Instructions Recorded Confirmed cyanocobalamin (vitamin B-12) 1,000 mcg PO DAILY Supplement 02/10/18 04/29/23 1,000 mcg tablet (Vitamin B-12) carvedilol 6.25 mg tablet 6.25 mg PO BID Hypertension 02/05/21 04/29/23 clopidogrel 75 mg tablet 75 mg PO DAILY coronary artery 03/24/21 04/29/23 disease pantoprazole 40 mg tablet,delayed 40 mg PO DAILY acid reflux 03/31/21 04/29/23 release ropinirole 0.25 mg tablet 0.25 mg PO HS restless leg syndrome 04/10/21 04/29/23 potassium chloride 10 mEq 10 meq PO DAILY Supplement 09/03/21 04/29/23 capsule,extended release acetaminophen 500 mg tablet 500 mg PO Q4HP PRN PAIN/FEVER 10/02/21 04/29/23 spironolactone 25 mg tablet 25 mg PO BID Edema 12/16/21 04/29/23 fluticasone propionate 50 2 spray intranasal DAILY alleriges 02/26/22 04/29/23 mcg/actuation nasal spray,suspension rifaximin 550 mg tablet 550 mg PO BID HEPATIC 03/14/22 04/29/23 ENCEPHALOPATHY insulin glargine 100 unit/mL 15 units SQ HS Diabetes 03/15/22 04/29/23 subcutaneous solution insulin human U-100 NPH-regulr 30 unit SQ DAILY Diabetes 03/15/22 04/29/23 70-30 mix 100 unit/mL subcutaneous susp ondansetron HCl 4 mg tablet 4 mg PO Q4HP PRN Nausea 07/18/22 04/29/23 escitalopram oxalate 10 mg tablet 10 mg PO DAILY Depression 08/16/22 04/29/23 (Lexapro) multivitamin with iron-mineral 1 tab PO DAILY Supplement 08/16/22 04/29/23 ranolazine 500 mg tablet,extended 500 mg PO BID Heart failure 08/16/22 04/29/23 release,12 hr (Ranexa) calcium carbonate 600 mg-vitamin 1 tab PO DAILY Supplement 10/14/22 04/29/23 D3 20 mcg (800 unit) tablet ferrous sulfate 325 mg (65 mg 325 mg PO DAILY Supplement 10/14/22 04/29/23 iron) tablet insulin aspart U-100 100 unit/mL 0 sliding scale dose SQ ACHS 10/14/22 04/29/23 (3 mL) subcutaneous pen (Novolog Diabetes FlexPen U-100 Insulin aspart) albuterol sulfate 0.63 mg/3 mL 0.63 mg inhalation QID PRN 01/24/23 04/29/23 solution for nebulization Breathing Problems levothyroxine 150 mcg tablet 150 mcg PO DAILY Supplement 04/08/23 04/29/23 promethazine 25 mg rectal 25 mg AL Q6H PRN Nausea And 04/08/23 04/29/23 suppository Vomiting trazodone 50 mg tablet 25 mg PO HS sleep 04/08/23 04/29/23 Previous Rx's Medication Instructions Recorded bumetanide 1 mg tablet 1 mg PO BID Edema #60 tabs 07/18/22 lactulose 10 gram/15 mL oral 45 ml PO TID HEPATIC 10/14/22 solution ENCEPHALOPATHY 30 days #4,050 mL Allergies Allergy/AdvReac Type Severity Amenia
--- NOTE | 2023-05-01 12:53 | ECG_ITS ---
APPROVED REPORT Exam: Resting ECG HR:62 bpm ECG Measurements Heart Rate 62 AXES TN 165 P -73 QRSd 109 QRS -33 QT 438 T 41 QTc 443 Conclusion SINUS RHYTHM WITH SINUS ARRHYTHMIA LEFT AXIS DEVIATION with LAFB INCOMPLETE RIGHT BUNDLE BRANCH BLOCK Old anterior IL changes ABNORMAL ECG UNCONFIRMED REPORT Electronically signed by : John Rosado MD 05/01/2023 20:16:07
--- NOTE | 2023-05-01 12:57 | PC.NURSE ---
call made for pt lunch paulay
[2023-05-01 13:23] LABS: Basophils % 0.5 % (0.1-2.0); Eosinophils # 0.1 K/mm3 (0.0-0.4); Eosinophils % 1.6 % (0.1-12.0); Hematocrit 31.2 % (37.0-47.0); Hemoglobin 9.4 g/dL (12.2-16.2); Lymphocytes % 17.5 % (10-50); Mean Corpuscular Hemoglobin 29.4 pg (27.0-31.2); Mean Corpuscular Volume 97.8 fl (81-99); Mean Platelet Volume 8.6 fl (7.4-10.4); Monocytes # 0.4 K/mm3 (0.1-1.0); Monocytes % 7.2 % (1.7-9.3); Neutrophils # 4.3 K/mm3 (1.8-7.8); Neutrophils % 73.2 % (37.0-80.0); Platelet Count 319 K/mm3 (142-424); Red Blood Count 3.19 M/mm3 (4.20-5.40); Red Cell Distribution Width 15.5 % (11.5-17.5); White Blood Count 5.9 K/mm3 (4.8-10.8)
[2023-05-01 13:24] LABS: VBG Base Excess 4.5 mmol/L (-2.4-2.3); VBG HCO3 28.6 mmol/L (23-30); VBG Oxygen Saturation 97.3 % (50-70); VBG PCO2 42.7 mmol/L (35-51); VBG PH 7.44 mmol/L (7.31-7.41); VBG PO2 97.7 mmol/L (28-40); VBG Total CO2 29.9 mmol/L (23-27)
[2023-05-01 13:29] LABS: Chloride 105 mmol/L (98-107); Sodium 144 mmol/L (136-145)
[2023-05-01 13:32] LABS: Alanine Aminotransferase 19 U/L (12-78); Albumin Level 2.9 g/dl (3.5-5.0); Albumin/Globulin Ratio 1.1 (1.1-1.8); Alkaline Phosphatase 149 U/L (38-126); Aspartate Amino Transferase 25 U/L (14-36); Bilirubin,Total 0.3 mg/dl (0.2-1.3); Blood Urea Nitrogen 28 mg/dl (7-17); Carbon Dioxide 35 mmol/L (22.0-30.0); Creatinine Clearance Estimated 49 mL/min (50-200); Estimated Glomerular Filt Rate 33 ml/min (>60); GFR (African American) 40 ML/MIN (>60); Globulin 2.6 g/dL (1.3-3.2); Total Protein,Serum 5.5 g/dl (6.3-8.2)
[2023-05-01 13:33] LABS: Calcium 8.5 mg/dl (8.4-10.2); Glucose 157 mg/dl (74-100)
[2023-05-01 13:42] LABS: NT Pro Brain Natriuretic Pep. 3960 pg/mL (0-450)
[2023-05-01 13:44] LABS: Troponin I 0.03 ng/ml (0.00-0.034)
--- NOTE | 2023-05-01 14:11 | PC.NURSE ---
CARE MANAGEMENT NOTIFIED OF ADMISSION
--- NOTE | 2023-05-01 14:38 | EXP.HP ---
History of Present Illness *Admission Date: 05/01/23 *Reason for visit:: Hypoxia *History of present illness: Ms. Moctezuma is an 81 year old female with a past medical history of cirrhosis, hepatic encephalopathy, htn, hld, diabetes, dementia, morbid obesity, wheelchair bound for the past 7 months, CAD, CHF, COPD and CKD who presented from [facility] due to hypoxia after a choking episode. She was swallowing medications with water when she began choking; she was noted to have oxygen saturations near 86% on RA. In the ED SpO2 has ranged 89-91% on RA and has come up to mid 90s on 2L NC. She denies chest pain or shortness of breath but does report worsening swelling over the past month. She denies cough, fever, abdominal pain, dysuria and diarrhea. Echo from 11/2021 revealed LVEF 55-60% and grade 2 diastolic dysfunction. Initial workup from the ED reveals BNP 3960 (it was 2470 on 04/14/23). Troponin level is within normal limits. EKG is without overt ischemic changes. CXR is with worsening bibasilar pulmonary opacities consistent with recent atelectasis or pneumonia. [facility] Disclaimer: The information contained in this section may have been updated after the patient was seen, as this information can be updated by other users. Medical History (Updated 05/01/23 @ 14:50 by Edgar Bran MD) Abnormal cardiovascular stress test Anxiety and depression Atherosclerotic heart disease CAD (coronary artery disease) Chest pain Chronic diastolic CHF (congestive heart failure) Chronic kidney disease Diabetes mellitus Diabetes mellitus Dizziness Dyspnea Edema Encounter for pre-operative cardiovascular clearance Fatty liver History of anemia History of transient ischemic attack (TIA) HLD (hyperlipidemia) HTN (hypertension) Hyperkalemia Hypothyroidism Near syncope Non-ST elevated myocardial infarction (non-STEMI) Stroke UTI (urinary tract infection) Family History Other Cancer Hypertension Social History Smoking Status: Former smoker alcohol intake: never substance use type: denies use current occupational status: retired Travel in the last 8 weeks: None household members: none housing: [facility] current occupational exposures/hazards: No caffeine: No Review of Systems Review of Systems Review of systems:: pertinent systems reviewed and negative unless documented below *Cardiovascular Cardiovascular: Reports edema and Reports leg edema Meds Home Medications and Allergies Home Medications Medication Instructions Recorded Confirmed Type cyanocobalamin (vitamin B-12) 1,000 mcg PO DAILY Supplement 02/10/18 04/29/23 History 1,000 mcg tablet (Vitamin B-12) carvedilol 6.25 mg tablet 6.25 mg PO BID Blood pressure 02/05/21 04/29/23 History clopidogrel 75 mg tablet 75 mg PO DAILY Heart Disease 03/24/21 05/01/23 History pantoprazole 40 mg tablet,delayed 40 mg PO DAILY acid reflux 03/31/21 04/29/23 History release ropinirole 0.25 mg tablet 0.25 mg PO HS restless leg syndrome 04/10/21 05/01/23 History potassium chloride 10 mEq 10 meq PO DAILY Supplement 09/03/21 05/01/23 History capsule,extended release acetaminophen 500 mg tablet 500 mg PO Q4HP PRN PAIN/FEVER 10/02/21 04/29/23 History spironolactone 25 mg tablet 25 mg PO BID Fluid/Diuretic 12/16/21 05/01/23 History fluticasone propionate 50 2 spray intranasal DAILY alleriges 02/26/22 04/29/23 History mcg/actuation nasal spray,suspension rifaximin 550 mg tablet 550 mg PO BID liver disease 03/14/22 05/01/23 History insulin glargine 100 unit/mL 15 units SQ HS Diabetes 03/15/22 05/01/23 History subcutaneous solution insulin human U-100 NPH-regulr 30 unit SQ DAILY Diabetes 03/15/22 05/01/23 History 70-30 mix 100 unit/mL subcutaneous susp ondansetron HCl 4 mg tablet 4 mg PO Q4H PRN Nausea 07/18/22 05/01/23 History escitalopram oxalat
--- NOTE | 2023-05-01 14:50 | CA_ITS ---
APPROVED REPORT EXAM: Comprehensive 2D, Doppler, and color-flow Echocardiogram [employer] Teacher: Nida Sterling RT(R) Ht: 5 ft 5 in Wt: 240lbs BSA: 2.14 BP: 181/83 mmHg Indications: CHF, COPD, edema, DM, HTN, obesity, hyperlipidemia, cirrhosis, CAD, mild on previous echo (11/2021) 2D Dimensions LVOT 1.90 cm (M/F) 1.5-2.5 LA Volume 44.70 mL LA Volume Index 20.89 mL/m2 (M/F) 16-34 M-Mode Dimensions RVDd 2.67 cm (0.9-2.6) LA Diam 4.38 cm (1.9-4.0) LVDd 5.25 cm (3.5-5.7) Ao Diam 2.21 cm (2.0-3.7) LVDs 3.94 cm (3.5-5.7) IVSd 1.13 cm (0.6-1.1) PWd 1.08 cm (0.6-1.1) EF (Teich) 49.00% FS 25.00% EDV (Teich) 132.40 mL ESV (Teich) 67.50 mL LV Diastology E Decel Time 210.00 (160-240 msec) E/A Ratio 1.63 MED E' 7.80 (< 7 cm/sec) E'/MED E' Ratio 17.79 (>14) LAT E' 9.40 (<10 cm/sec) E/LAT E' Ratio 14.77 (>14) Aortic Valve LVOT Max 113.00 (70-110 cm/s) LVOT VTI 27.42 cm AoV Peak Manoj. 277.00 (50-130 cm/s) AO Peak GR. 30.70 mmHg AO Mean GR. 15.10 (<5 mmHg) AO VTI 65.82 (18-25 cm) WILMAR (VTI) 1.18 (2.5-4.5 cm2) Mitral Valve MV A Velocity 85.00 (40-130 cm/s) E/A Ratio 1.63 MV Decel. Time 210.00 (160-240 ms) MV PHT 60.00 ms Tricuspid Valve TR P. Velocity 340.00 cm/s RAP Estimate 10.00 mmHg RVSP 56.20 mmHg Left Ventricle The left ventricle is normal size. The left ventricular systolic function is normal. The left ventricular ejection fraction is within the normal range. There is increased LV wall thickness. There is normal LV segmental wall motion. Diastolic function is indeterminate. LVEF is 55%. Right Ventricle The right ventricle is normal size. The right ventricular systolic function is normal. Atria The left atrium size is normal. The right atrium size is normal. Aortic Valve The aortic valve is moderately thickened. There is moderate aortic stenosis. Aortic valve area (WILMAR) is 1.2 cm2 by continuity equation. Peak velocity 3.1 m/s. Mean AV gradient is 18 mmHg. Peak AV gradient is 30 mmHg. Dimensionless index (DI) is 0.46. SVi=36 mL/m2. Trace aortic regurgitation. Mitral Valve There is moderate mitral annular calcification (MAC). The mitral valve leaflets are mildly thickened. No evidence of mitral valve stenosis. Mean MV gradient is 4 mmHg. Mild mitral regurgitation. Tricuspid Valve There is mild tricuspid annular calcification. The tricuspid valve leaflets are thin and pliable. Moderate tricuspid regurgitation. RVSP is 45 mmHg + RA pressure. Pulmonic Valve The pulmonary valve is normal in structure. Trace pulmonic regurgitation. Great Vessels The aortic root is normal in size. The IVC is not well visualized. Pericardium There is no pericardial effusion. Other Information Study Quality: Fair Conclusion Normal biventricular systolic function. Increased LV wall thickness. Moderate aortic valve calcification. Moderate aortic stenosis is present. Moderate MAC. No MS. Mild MR. Moderate TR. Markedly elevated RVSP = 45 mmHg + RA pressure. Compared to prior study, the severity of aortic stenosis has progressed from mild to moderate. Electronically signed by : Kathi Hartman, 05/01/2023 20:24:08
--- NOTE | 2023-05-01 15:10 | PC.NURSE ---
pt admitted to 208 from ED
[2023-05-01 15:29] LABS: Procalcitonin 0.063 ng/mL (0.0-2.0)
--- NOTE | 2023-05-01 15:48 | P.CONPHA_ITS ---
Pharmacy Intervention Comments: Home medications were verified using a med list from [facility]. -Austin Corbett, PharmD student
--- NOTE | 2023-05-01 15:48 | HMH.PHAINT1 ---
Pharmacy Intervention Comments: Home medications were verified using a med list from [facility]. -Austin Corbett, PharmD student
--- NOTE | 2023-05-01 16:31 | PC.WOUNDNOTE ---
wound right upper arm present on arrival, pt stated is from hitting my arm in the ambulance, I have really thin skin ; steri strips with nonadherent pad and wrapped with kerlex wound right lower extremity present on arrival pt stated from hitting leg on bed at [facility] ; 9 stitches and steri strips with nonadherent pad and wrapped with kerlex
--- NOTE | 2023-05-01 16:34 | PC.NURSE ---
pt has lidocaine patch on right knee, present on arrival to [facility]
[2023-05-01 19:51] LABS: Coronavirus 19, PCR Not Detected (NotDetected); Influenza A, PCR Not Detected (NotDetected); Influenza B, PCR Not Detected (NotDetected)
[2023-05-01 20:26] LABS: POC Glucose,Bedside 197 (70-110)
[2023-05-01 21:36] LABS: POC Glucose,Bedside 151 (70-110)
--- NOTE | 2023-05-01 21:57 | PC.NURSE ---
patient says she needs her bowel medicine. joselo hudson np notified.
[2023-05-02] VITALS (11 sets, daily range): BP systolic 121–175; BP diastolic 53–83; PULSE 59–100; RESP 18–22; TEMP 36.5–36.9; O2SAT 88–99; BMI 40.9
--- NOTE | 2023-05-02 02:22 | PC.NURSE ---
RESTING QUIETLY. NAD. 02 AT 2LNC. 02 SATS 99%. NO C/O PAIN OR SOA VOICED. DRSGS TO RLE AND R ELBOW C/D/I.
[2023-05-02 05:33] LABS: POC Glucose,Bedside 106 (70-110)
--- NOTE | 2023-05-02 05:40 | PC.NURSE ---
total intake 200 po and 800 uop.
[2023-05-02 06:48] LABS: Chloride 107 mmol/L (98-107); Sodium 146 mmol/L (136-145)
[2023-05-02 06:51] LABS: Blood Urea Nitrogen 32 mg/dl (7-17); Calcium 8.3 mg/dl (8.4-10.2); Carbon Dioxide 34 mmol/L (22.0-30.0); Creatinine Clearance Estimated 23 mL/min (50-200); Estimated Glomerular Filt Rate 31 ml/min (>60); GFR (African American) 37 ML/MIN (>60); Glucose 93 mg/dl (74-100); Magnesium 1.7 mg/dl (1.6-2.3)
[2023-05-02 07:36] LABS: Basophils % 0.3 % (0.1-2.0); Eosinophils # 0.2 K/mm3 (0.0-0.4); Eosinophils % 3.1 % (0.1-12.0); Hematocrit 32.3 % (37.0-47.0); Hemoglobin 9.4 g/dL (12.2-16.2); Lymphocytes # 1.6 K/mm3 (0.7-4.5); Lymphocytes % 30.2 % (10-50); Mean Corpuscular HGB Conc 29.3 g/dL (31.8-35.4); Mean Corpuscular Hemoglobin 29.2 pg (27.0-31.2); Mean Corpuscular Volume 99.7 fl (81-99); Mean Platelet Volume 8.4 fl (7.4-10.4); Monocytes # 0.5 K/mm3 (0.1-1.0); Monocytes % 10.5 % (1.7-9.3); Neutrophils # 2.9 K/mm3 (1.8-7.8); Neutrophils % 55.9 % (37.0-80.0); Platelet Count 342 K/mm3 (142-424); Red Blood Count 3.24 M/mm3 (4.20-5.40); Red Cell Distribution Width 15.8 % (11.5-17.5); White Blood Count 5.2 K/mm3 (4.8-10.8)
--- NOTE | 2023-05-02 08:54 | SW/DCPLANNER ---
Addendum entered by Kimber Browning 05/07/23 10:50: Updated patient information has been faxed to Shikha ramirez/ [facility]. I have also updated Shikha that patient may return this afternoon. Addendum entered by Kimber Browning 05/06/23 08:57: Updated patient information has been faxed to Shikha ramirez/ [facility]. Original Note: This patient currently resides at [facility] level of care. I will continue to follow up w/ Yesika at [facility] until patient is medically stable for discharge.
--- NOTE | 2023-05-02 09:00 | ECG_ITS ---
APPROVED REPORT Exam: Resting ECG HR:65 bpm ECG Measurements Heart Rate 65 AXES PA 173 P -52 QRSd 118 QRS -35 QT 456 T 28 QTc 468 Conclusion SINUS RHYTHM LEFT AXIS DEVIATION [QRS AXIS < -30] INCOMPLETE RIGHT BUNDLE BRANCH BLOCK [90+ ms QRS DURATION, TERMINAL R IN V1/V2, 40+ ms S IN I/aVL/V4/V5/V6] ABNORMAL ECG UNCONFIRMED REPORT Electronically signed by : John Rosado MD 05/03/2023 17:45:57
--- NOTE | 2023-05-02 09:00 | EXP.CARD.CON ---
History of Present Illness History of Present Illness Consult date: 05/02/23 Requesting physician: Edgar Bran Consult reason: shortness of breath Chief complaint: hypoxemia, chf exacerbation History of present illness: 82-year-old white female with past medical history of coronary artery disease status post stenting to LAD and RCA November 2021, diastolic dysfunction with a known ejection fraction of 55%, mild aortic stenosis, paroxysmal atrial fibrillation no oac due to hx of gi bleed, CVA and chronic anemia presented to emergency department last night with complaints of hypoxemia noticed by snf staff. assisted staff reports oxygen saturation in the high 80s. Patient initially denied any symptoms of chest pain or shortness of breath. Patient does endorse worsening edema of lower extremities. Initial EKG shows sinus rhythm rate 62, without ST or T wave changes concerning for acute ischemia. Labs as follow: WBC 5.9, hemoglobin 9.4, sodium 144, potassium 4, BUN 28, creatinine 1.5, troponin 0.03 and proBNP 3960. Chest x-ray showed worsening bibasilar pulmonary opacities consistent with recent atelectasis or pneumonia. Patient was treated with Lasix 40mg IV in ER and admitted for CHF exacerbation and cardiology consultation. This morning patient denies any complaints. Morning labs reviewed. [facility] Disclaimer: The information contained in this section may have been updated after the patient was seen, as this information can be updated by other users. Medical History (Updated 05/02/23 @ 09:13 by Le Schmitt APRN) Abnormal cardiovascular stress test Anxiety and depression Atherosclerotic heart disease CAD (coronary artery disease) Chest pain Chronic diastolic CHF (congestive heart failure) Chronic kidney disease Diabetes mellitus Diabetes mellitus Dizziness Dyspnea Edema Encounter for pre-operative cardiovascular clearance Fatty liver History of anemia History of transient ischemic attack (TIA) HLD (hyperlipidemia) HTN (hypertension) Hyperkalemia Hypothyroidism Near syncope Non-ST elevated myocardial infarction (non-STEMI) Stroke UTI (urinary tract infection) Family History Other Cancer Hypertension Social History (Updated 05/01/23 @ 15:37 by Marcia Alicea RN) Smoking Status: Former smoker alcohol intake: never substance use type: denies use current occupational status: retired Travel in the last 8 weeks: None household members: none housing: snf current occupational exposures/hazards: No caffeine: No Review of Systems Review of Systems Review of systems:: pertinent systems reviewed and negative unless documented below *Cardiovascular Comments: Reports increased lower extremity edema Exam Data for Last 24 hours Vital signs and Labs for Last 24 Hours: Temp Pulse Resp BP Pulse Ox O2 Del Method O2 Flow Rate 97.8 F 67 18 146/83 H 98 Nasal Cannula 2.5 05/02/23 08:00 05/02/23 08:00 05/02/23 08:00 05/02/23 08:00 05/02/23 08:00 05/02/23 08:00 05/02/23 08:00 Laboratory Results - last 24 hr 05/01/23 12:51: VBG pH 7.44 H, VBG pCO2 42.7, VBG pO2 97.7 H, VBG HCO3 28.6, VBG Total CO2 29.9 H, VBG O2 Saturation 97.3 H, VBG Base Excess 4.5 H 05/01/23 13:11: WBC 5.9, RBC 3.19 L, Hgb 9.4 L, Hct 31.2 L, MCV 97.8, MCH 29.4, MCHC 30.0 L, RDW 15.5, Plt Count 319, MPV 8.6, Neut % (Auto) 73.2, Lymph % (Auto) 17.5, [place] % (Auto) 7.2, Eos % (Auto) 1.6, Baso % (Auto) 0.5, Neut # (Auto) 4.3, Lymph # (Auto) 1.0, [place] # (Auto) 0.4, Eos # (Auto) 0.1, Baso # (Auto) 0.0, Sodium 144, Potassium 4.0, Chloride 105, Carbon Dioxide 35 H, Anion Gap 8.0, BUN 28 H, Creatinine 1.50 H, Estimated Creat Clear 49, Estimated GFR 33 L, Est GFR ( Amer) 40 L, Glucose 157 H, Calcium 8.5, Total Bilirubin 0.3, AST 25, ALT 19, Alkaline Phosphatase 149 H, Troponin I 0.03, NT-Pro-B Natriuret Pep 3960 H, Total Protein 5.5 L, Albumin 2.9 L, Gl
[2023-05-02 10:55] LABS: POC Glucose,Bedside 114 (70-110)
--- NOTE | 2023-05-02 12:15 | EXP.PN ---
Subjective *Date: 05/02/23 *Time: 12:15 Interval history: No acute events overnight No dyspnea She feels weak all over Denies pain Exam Data for Last 24 hours Vital signs and Labs for Last 24 Hours: Temp Pulse Resp BP Pulse Ox O2 Del Method O2 Flow Rate 97.7 F 71 22 175/70 H 98 Nasal Cannula 2.5 05/02/23 10:52 05/02/23 10:52 05/02/23 10:52 05/02/23 10:52 05/02/23 10:52 05/02/23 10:52 05/02/23 10:52 Laboratory Results - last 24 hr 05/01/23 12:51: VBG pH 7.44 H, VBG pCO2 42.7, VBG pO2 97.7 H, VBG HCO3 28.6, VBG Total CO2 29.9 H, VBG O2 Saturation 97.3 H, VBG Base Excess 4.5 H 05/01/23 13:11: WBC 5.9, RBC 3.19 L, Hgb 9.4 L, Hct 31.2 L, MCV 97.8, MCH 29.4, MCHC 30.0 L, RDW 15.5, Plt Count 319, MPV 8.6, Neut % (Auto) 73.2, Lymph % (Auto) 17.5, [place] % (Auto) 7.2, Eos % (Auto) 1.6, Baso % (Auto) 0.5, Neut # (Auto) 4.3, Lymph # (Auto) 1.0, [place] # (Auto) 0.4, Eos # (Auto) 0.1, Baso # (Auto) 0.0, Sodium 144, Potassium 4.0, Chloride 105, Carbon Dioxide 35 H, Anion Gap 8.0, BUN 28 H, Creatinine 1.50 H, Estimated Creat Clear 49, Estimated GFR 33 L, Est GFR ( Amer) 40 L, Glucose 157 H, Calcium 8.5, Total Bilirubin 0.3, AST 25, ALT 19, Alkaline Phosphatase 149 H, Troponin I 0.03, NT-Pro-B Natriuret Pep 3960 H, Total Protein 5.5 L, Albumin 2.9 L, Globulin 2.6, Albumin/Globulin Ratio 1.1 05/01/23 14:44: Procalcitonin 0.063 05/01/23 16:13: POC Glucose 151 H 05/01/23 19:40: SARS-CoV-2 (PCR) Not detected, Influenza A Untype (PCR) Not detected, Influenza Type B (PCR) Not detected 05/01/23 20:19: POC Glucose 197 H 05/02/23 05:22: POC Glucose 106 05/02/23 05:59: Sodium 146 H, Potassium 4.0, Chloride 107, Carbon Dioxide 34 H, Anion Gap 9.0, BUN 32 H, Creatinine 1.60 H, Estimated Creat Clear 23, Estimated GFR 31 L, Est GFR ( Amer) 37 L, Glucose 93 D, Calcium 8.3 L, Magnesium 1.7 05/02/23 07:25: WBC 5.2, RBC 3.24 L, Hgb 9.4 L, Hct 32.3 L, MCV 99.7 H, MCH 29.2, MCHC 29.3 L, RDW 15.8, Plt Count 342, MPV 8.4, Neut % (Auto) 55.9, Lymph % (Auto) 30.2, [place] % (Auto) 10.5 H, Eos % (Auto) 3.1, Baso % (Auto) 0.3, Neut # (Auto) 2.9, Lymph # (Auto) 1.6, [place] # (Auto) 0.5, Eos # (Auto) 0.2, Baso # (Auto) 0.0 05/02/23 10:48: POC Glucose 114 H Temp Pulse Resp BP Pulse Ox 98.3 F 77 17 154/71 H 96 10/14/22 15:25 10/14/22 15:25 10/14/22 15:25 10/14/22 15:25 10/14/22 15:25 Laboratory Results - last 24 hr 10/13/22 14:30: Blood Type A Positive, Antibody Screen Negative, Crossmatch (AHG) See Detail 10/13/22 17:14: POC Glucose 139 H 10/13/22 21:32: POC Glucose 203 H 10/14/22 01:23: POC Glucose 149 H 10/14/22 02:00: Hgb 9.0 L D, Hct 27.6 L 10/14/22 05:23: POC Glucose 142 H 10/14/22 08:00: WBC 5.2, RBC 2.96 L, Hgb 8.8 L, Hct 26.0 L, MCV 87.8, MCH 29.8, MCHC 33.9, RDW 18.2 H, Plt Count 469 H, MPV 8.0, Neut % (Auto) 60.1, Lymph % (Auto) 24.3, [place] % (Auto) 8.2, Eos % (Auto) 6.4, Baso % (Auto) 0.9, Neut # (Auto) 3.1, Lymph # (Auto) 1.3, [place] # (Auto) 0.4, Eos # (Auto) 0.3, Baso # (Auto) 0.1 10/14/22 08:00: Sodium 145, Potassium 3.5, Chloride 113 H, Carbon Dioxide 28, Anion Gap 7.5, BUN 27 H, Creatinine 1.70 H, Estimated Creat Clear 42, Estimated GFR 29 L, Est GFR ( Amer) 35 L, Glucose 132 H D, Calcium 8.1 L, Magnesium 1.8, Total Bilirubin 0.4, AST 30, ALT 18, Alkaline Phosphatase 113, Total Protein 4.8 L, Albumin 2.5 L D, Globulin 2.3, Albumin/Globulin Ratio 1.1 10/14/22 08:00: Ammonia 61 H 10/14/22 11:29: POC Glucose 143 H 10/14/22 17:28: POC Glucose 162 H I & O for Last 24 hours: Intake & Output 04/29/23 04/30/23 05/01/23 05/02/23 23:59 23:59 23:59 23:59 Intake Total 240 / 440 680 / 680 Output Total 1250 / 1250 150 / 150 Balance -1010 / -810 530 / 530 Weight 111.697 kg 111.538 kg Intake & Output 10/11/22 10/12/22 10/13/22 10/14/22 23:59 23:59 23:59 23:59 Intake Total 250 / 250 0 / 0 Output Total 1675 / 1675 2700 / 2700 Balance -1425 / -1425 -2700 / -2700 Weight 103.532 kg 104.3 kg Microbiology
[2023-05-02 16:49] LABS: Ammonia 164 umol/L (9-30)
[2023-05-02 21:11] LABS: POC Glucose,Bedside 279 (70-110)
[2023-05-03] VITALS (8 sets, daily range): BP systolic 125–163; BP diastolic 56–84; PULSE 53–69; RESP 16–18; TEMP 36.4–36.8; O2SAT 91–97; BMI 41.0
--- NOTE | 2023-05-03 05:15 | PC.NURSE ---
RESTING QUIETLY. NAD. VSs STABLE/AFEBRILE. SINUS ARRHYTHMIA/BBB/1ST DEGREE AVB NOTED ON TELE.
[2023-05-03 05:33] LABS: POC Glucose,Bedside 73 (70-110)
--- NOTE | 2023-05-03 07:00 | XR_ITS ---
FINAL REPORT CLINICAL HISTORY: chf exac COMPARISON: 05/01/2023 FINDINGS: A single portable view of the chest was obtained. Cardiomegaly is once again noted with mild pulmonary vascular congestion, stable since the prior chest x-ray of May 01. Bibasilar opacities are once again seen, and are somewhat worse than noted on the prior chest x-ray, most likely representing atelectasis or pneumonia. There is degenerative change of the shoulders once again seen bilaterally. IMPRESSION: Cardiomegaly with pulmonary vascular congestion, stable. Bibasilar opacities somewhat worse than noted on the prior chest x-ray, atelectasis or pneumonia. Reviewed, Interpreted and Dictated by Sang Herzog III, MD Transcribed by Bindu Perez Authenticated and [facility]
[2023-05-03 07:22] LABS: Chloride 103 mmol/L (98-107); Sodium 143 mmol/L (136-145)
[2023-05-03 07:23] LABS: Potassium 4.1 mmoL/L (3.5-5.1)
[2023-05-03 07:24] LABS: Ammonia 68 umol/L (9-30)
[2023-05-03 07:25] LABS: Anion Gap 8.1 mEq/L (5-15); Blood Urea Nitrogen 36 mg/dl (7-17); Calcium 8.7 mg/dl (8.4-10.2); Carbon Dioxide 36 mmol/L (22.0-30.0); Creatinine Clearance Estimated 19 mL/min (50-200); Estimated Glomerular Filt Rate 25 ml/min (>60); GFR (African American) 31 ML/MIN (>60); Glucose 83 mg/dl (74-100)
[2023-05-03 07:26] LABS: Magnesium 1.7 mg/dl (1.6-2.3)
[2023-05-03 08:13] LABS: NT Pro Brain Natriuretic Pep. 2740 pg/mL (0-450)
--- NOTE | 2023-05-03 09:27 | EXP.CARD.PN ---
Subjective Subjective Date: 05/03/23 Time: 08:30 Principal diagnosis: CHF exacerbation Interval history: Patient denies complaints this morning, morning labs reviewed. -1450mLs noted Exam Data for Last 24 hours Vital signs and Labs for Last 24 Hours: Temp Pulse Resp BP Pulse Ox O2 Del Method O2 Flow Rate 98.0 F 59 L 18 154/68 H 95 Nasal Cannula 3 05/03/23 08:00 05/03/23 08:00 05/03/23 08:00 05/03/23 08:00 05/03/23 08:00 05/03/23 08:00 05/03/23 08:00 Laboratory Results - last 24 hr 05/02/23 10:48: POC Glucose 114 H 05/02/23 16:30: Ammonia 164 H 05/02/23 20:29: POC Glucose 279 H 05/03/23 05:22: POC Glucose 73 05/03/23 06:29: Sodium 143, Potassium 4.1, Chloride 103, Carbon Dioxide 36 H, Anion Gap 8.1, BUN 36 H, Creatinine 1.90 H, Estimated Creat Clear 19, Estimated GFR 25 L, Est GFR ( Amer) 31 L, Glucose 83, Calcium 8.7, Magnesium 1.7, Ammonia 68 H, NT-Pro-B Natriuret Pep 2740 H I & O for Last 24 hours: Intake & Output 04/30/23 05/01/23 05/02/23 05/03/23 23:59 23:59 23:59 23:59 Intake Total 240 / 440 1800 / 2040 840 / 840 Output Total 1250 / 1250 850 / 1325 475 / 475 Balance -1010 / -810 950 / 715 365 / 365 Weight 246 lb 4 oz 245 lb 14.4 oz 246 lb 5 oz Microbiology Reports for the Last 24 Hours: Microbiology 10/13/22 10:07 Urine,Catheterized Urine Culture - Preliminary NO GROWTH AFTER 24 HOURS Constitutional Constitutional: no acute distress, morbidly obese, chronically ill appearing and cooperative *Routine HEENT Exam Head: Present normocephalic Eye: Present EOMI and PERRL ENT: Present mucous membranes moist *Routine Neck Exam Neck: Present supple; Absent swelling *Routine Respiratory Exam Respiratory: Present CTA bilaterally; Absent accessory muscle use, rhonchi, wheezes or crackles *Routine Cardiovascular Exam Cardiovascular: Present RRR and murmur *Routine Abdominal Exam Abdominal: Present soft and normoactive bowel sounds; Absent tenderness *Routine Rectal Exam Patient deferred: visual exam *Routine Exam Patient deferred: external exam *Routine Extremities Exam Extremities: Present edema (2+ to knees); Absent cyanosis or clubbing *Routine Skin Exam Skin: Present warm; Absent rash *Routine Neurological Exam Neurological: Present alert and moving all extremities; Absent altered mental status Comments: Oriented to person and place. Answering questions appropriately Progress Note: A&P Assessment and plan (1) Acute and chronic respiratory failure with hypoxia: Status: Acute (2) Heart failure with preserved ejection fraction: Status: Acute (3) Moderate aortic stenosis: Status: Acute (4) Diastolic dysfunction: Status: Acute (5) Cirrhosis: Status: Acute (6) Chronic kidney disease: Status: Acute (7) Paroxysmal A-fib: Status: Acute Assessment and Plan Assessment and Plan for All Diagnoses:: Acute hypoxic respiratory failure HFpEF NYHA III Diastolic dysfunction grade II Moderate aortic valve stenosis -Echo from 05/01/2023: EF 55, moderate , increased RSVP @45 -Bumex 2mg IV BID -Strict I's and O's -Add jardiance 10mg po daily after diureses and improvement of kidney function 05/03/2023: -1450 mL noted. BNP moving. 2+ bilateral lower extremity edema still present. Due to worsening kidney function will decrease Bumex to 2 mg IV once a day. Acute kidney injury in the setting of diuretics -Creatinine up to 1.9 today (baseline 1.5-2.0), continue to monitor Hx Paroxysmal Afib Chadsvasc score 9 -Currently NSR rate of 65 -Continue carvedilol 6.25mg BID -No oac due to hx of GI bleed-Per history Hx of CAD -MARIANN to LAD and RCA November 2021 -Continue Plavix 75mg daily, coreg 6.25mg bid. no statin due to hx of cirrhosis. Diabetes Mellitus type II -Defer to primary service -Jardiance prior to dc home Hx of Cirrhosis with acute hepatic encephalopathy-resolving -Patient much more alert
[2023-05-03 09:44] LABS: POC Glucose,Bedside 115 (70-110)
[2023-05-03 11:41] LABS: POC Glucose,Bedside 156 (70-110)
--- NOTE | 2023-05-03 15:19 | PC.WOUNDNOTE ---
open area noted to coccyx
--- NOTE | 2023-05-03 17:09 | EXP.PN ---
Subjective *Date: 05/03/23 *Time: 09:00 Interval history: No acute events overnight No dyspnea she hasn't had a bm She feels weak all over, unchanged compared to yesterday Exam Data for Last 24 hours Vital signs and Labs for Last 24 Hours: Temp Pulse Resp BP Pulse Ox O2 Del Method O2 Flow Rate 97.9 F 64 18 149/73 H 95 Nasal Cannula 2 05/03/23 15:55 05/03/23 16:00 05/03/23 15:55 05/03/23 15:55 05/03/23 15:55 05/03/23 13:00 05/03/23 13:00 Laboratory Results - last 24 hr 05/02/23 20:29: POC Glucose 279 H 05/03/23 05:22: POC Glucose 73 05/03/23 06:29: Sodium 143, Potassium 4.1, Chloride 103, Carbon Dioxide 36 H, Anion Gap 8.1, BUN 36 H, Creatinine 1.90 H, Estimated Creat Clear 19, Estimated GFR 25 L, Est GFR ( Amer) 31 L, Glucose 83, Calcium 8.7, Magnesium 1.7, Ammonia 68 H, NT-Pro-B Natriuret Pep 2740 H 05/03/23 09:17: POC Glucose 115 H 05/03/23 11:33: POC Glucose 156 H Temp Pulse Resp BP Pulse Ox 98.3 F 77 17 154/71 H 96 10/14/22 15:25 10/14/22 15:25 10/14/22 15:25 10/14/22 15:25 10/14/22 15:25 Laboratory Results - last 24 hr 10/13/22 14:30: Blood Type A Positive, Antibody Screen Negative, Crossmatch (AHG) See Detail 10/13/22 17:14: POC Glucose 139 H 10/13/22 21:32: POC Glucose 203 H 10/14/22 01:23: POC Glucose 149 H 10/14/22 02:00: Hgb 9.0 L D, Hct 27.6 L 10/14/22 05:23: POC Glucose 142 H 10/14/22 08:00: WBC 5.2, RBC 2.96 L, Hgb 8.8 L, Hct 26.0 L, MCV 87.8, MCH 29.8, MCHC 33.9, RDW 18.2 H, Plt Count 469 H, MPV 8.0, Neut % (Auto) 60.1, Lymph % (Auto) 24.3, [place] % (Auto) 8.2, Eos % (Auto) 6.4, Baso % (Auto) 0.9, Neut # (Auto) 3.1, Lymph # (Auto) 1.3, [place] # (Auto) 0.4, Eos # (Auto) 0.3, Baso # (Auto) 0.1 10/14/22 08:00: Sodium 145, Potassium 3.5, Chloride 113 H, Carbon Dioxide 28, Anion Gap 7.5, BUN 27 H, Creatinine 1.70 H, Estimated Creat Clear 42, Estimated GFR 29 L, Est GFR ( Amer) 35 L, Glucose 132 H D, Calcium 8.1 L, Magnesium 1.8, Total Bilirubin 0.4, AST 30, ALT 18, Alkaline Phosphatase 113, Total Protein 4.8 L, Albumin 2.5 L D, Globulin 2.3, Albumin/Globulin Ratio 1.1 10/14/22 08:00: Ammonia 61 H 10/14/22 11:29: POC Glucose 143 H 10/14/22 17:28: POC Glucose 162 H I & O for Last 24 hours: Intake & Output 04/30/23 05/01/23 05/02/23 05/03/23 23:59 23:59 23:59 23:59 Intake Total 240 / 440 1800 / 2040 1080 / 1080 Output Total 1250 / 1250 850 / 1325 875 / 875 Balance -1010 / -810 950 / 715 205 / 205 Weight 111.697 kg 111.538 kg 111.725 kg Intake & Output 10/11/22 10/12/22 10/13/22 10/14/22 23:59 23:59 23:59 23:59 Intake Total 250 / 250 0 / 0 Output Total 1675 / 1675 2700 / 2700 Balance -1425 / -1425 -2700 / -2700 Weight 103.532 kg 104.3 kg Microbiology Reports for the Last 24 Hours: Microbiology 10/13/22 10:07 Urine,Catheterized Urine Culture - Preliminary NO GROWTH AFTER 24 HOURS Constitutional Constitutional: no acute distress, morbidly obese, chronically ill appearing and cooperative *Routine HEENT Exam Head: Present normocephalic Eye: Present EOMI and PERRL ENT: Present mucous membranes moist *Routine Neck Exam Neck: Present supple; Absent swelling *Routine Respiratory Exam Respiratory: Present CTA bilaterally; Absent accessory muscle use, rhonchi, wheezes or crackles *Routine Cardiovascular Exam Cardiovascular: Present RRR and murmur *Routine Abdominal Exam Abdominal: Present soft and normoactive bowel sounds; Absent tenderness *Routine Rectal Exam Patient deferred: visual exam *Routine Exam Patient deferred: external exam *Routine Extremities Exam Extremities: Present edema (2+ to knees); Absent cyanosis or clubbing *Routine Skin Exam Skin: Present warm; Absent rash *Routine Neurological Exam Neurological: Present alert and moving all extremities; Absent altered mental status Comments: Oriented to person and place. Answering questions appropriately Assessment and Plan *Assessment and
[2023-05-03 17:47] LABS: POC Glucose,Bedside 239 (70-110)
[2023-05-03 22:02] LABS: POC Glucose,Bedside 283 (70-110)
[2023-05-04] VITALS (7 sets, daily range): BP systolic 130–172; BP diastolic 55–76; PULSE 60–67; RESP 16–20; TEMP 36.6–37; O2SAT 94–97; BMI 41.5; BMI 41.1
[2023-05-04 05:26] LABS: POC Glucose,Bedside 94 (70-110)
--- NOTE | 2023-05-04 05:49 | PC.NURSE ---
dsg to cocyx - reddened open area. A&OX4. 2L NC 95%. strict I&O 1500ml. dsg to RLE & R elbow - skin tear. purewick in place. lidocaine patch on L knee fo rpain. 2+ pitting edema noted on BLE and 1+ on bilateral hands. cb within reach, bed locked and in lowest position
--- NOTE | 2023-05-04 10:46 | EXP.PN ---
Subjective *Date: 05/04/23 *Time: 10:46 Interval history: She had two small bowel movements She feels drowsy Denies shortness of breath or chest pain Exam Data for Last 24 hours Vital signs and Labs for Last 24 Hours: Temp Pulse Resp BP Pulse Ox O2 Del Method O2 Flow Rate 98.3 F 66 20 154/64 H 97 Nasal Cannula 2 05/04/23 07:48 05/04/23 07:48 05/04/23 07:48 05/04/23 07:48 05/04/23 07:48 05/04/23 09:00 05/04/23 06:05 Laboratory Results - last 24 hr 05/03/23 11:33: POC Glucose 156 H 05/03/23 17:18: POC Glucose 239 H 05/03/23 21:47: POC Glucose 283 H 05/04/23 05:20: POC Glucose 94 Temp Pulse Resp BP Pulse Ox 98.3 F 77 17 154/71 H 96 10/14/22 15:25 10/14/22 15:25 10/14/22 15:25 10/14/22 15:25 10/14/22 15:25 Laboratory Results - last 24 hr 10/13/22 14:30: Blood Type A Positive, Antibody Screen Negative, Crossmatch (AHG) See Detail 10/13/22 17:14: POC Glucose 139 H 10/13/22 21:32: POC Glucose 203 H 10/14/22 01:23: POC Glucose 149 H 10/14/22 02:00: Hgb 9.0 L D, Hct 27.6 L 10/14/22 05:23: POC Glucose 142 H 10/14/22 08:00: WBC 5.2, RBC 2.96 L, Hgb 8.8 L, Hct 26.0 L, MCV 87.8, MCH 29.8, MCHC 33.9, RDW 18.2 H, Plt Count 469 H, MPV 8.0, Neut % (Auto) 60.1, Lymph % (Auto) 24.3, [place] % (Auto) 8.2, Eos % (Auto) 6.4, Baso % (Auto) 0.9, Neut # (Auto) 3.1, Lymph # (Auto) 1.3, [place] # (Auto) 0.4, Eos # (Auto) 0.3, Baso # (Auto) 0.1 10/14/22 08:00: Sodium 145, Potassium 3.5, Chloride 113 H, Carbon Dioxide 28, Anion Gap 7.5, BUN 27 H, Creatinine 1.70 H, Estimated Creat Clear 42, Estimated GFR 29 L, Est GFR ( Amer) 35 L, Glucose 132 H D, Calcium 8.1 L, Magnesium 1.8, Total Bilirubin 0.4, AST 30, ALT 18, Alkaline Phosphatase 113, Total Protein 4.8 L, Albumin 2.5 L D, Globulin 2.3, Albumin/Globulin Ratio 1.1 10/14/22 08:00: Ammonia 61 H 10/14/22 11:29: POC Glucose 143 H 10/14/22 17:28: POC Glucose 162 H I & O for Last 24 hours: Intake & Output 05/01/23 05/02/23 05/03/23 05/04/23 23:59 23:59 23:59 23:59 Intake Total 240 / 440 1800 / 2040 1332 / 1332 120 / 120 Output Total 1250 / 1250 850 / 1325 1175 / 1425 950 / 950 Balance -1010 / -810 950 / 715 157 / -93 -830 / -830 Weight 111.697 kg 111.538 kg 111.725 kg 112.973 kg Intake & Output 10/11/22 10/12/22 10/13/22 10/14/22 23:59 23:59 23:59 23:59 Intake Total 250 / 250 0 / 0 Output Total 1675 / 1675 2700 / 2700 Balance -1425 / -1425 -2700 / -2700 Weight 103.532 kg 104.3 kg Microbiology Reports for the Last 24 Hours: Microbiology 10/13/22 10:07 Urine,Catheterized Urine Culture - Preliminary NO GROWTH AFTER 24 HOURS Constitutional Constitutional: no acute distress, morbidly obese, chronically ill appearing and cooperative *Routine HEENT Exam Head: Present normocephalic Eye: Present EOMI and PERRL ENT: Present mucous membranes moist *Routine Neck Exam Neck: Present supple; Absent swelling *Routine Respiratory Exam Respiratory: Present CTA bilaterally; Absent accessory muscle use, rhonchi, wheezes or crackles *Routine Cardiovascular Exam Cardiovascular: Present RRR and murmur *Routine Abdominal Exam Abdominal: Present soft and normoactive bowel sounds; Absent tenderness *Routine Rectal Exam Patient deferred: visual exam *Routine Exam Patient deferred: external exam *Routine Extremities Exam Extremities: Present edema (2+ to knees); Absent cyanosis or clubbing *Routine Skin Exam Skin: Present warm; Absent rash *Routine Neurological Exam Neurological: Present alert and moving all extremities; Absent altered mental status Comments: Oriented to person and place. Answering questions appropriately Assessment and Plan *Assessment and plan (1) Acute respiratory failure with hypoxia: Status: Acute Category: Medical Code(s): J96.01 - Acute respiratory failure with hypoxia (2) CHF exacerbation: Status: Acute Category: Medical Code(s): I50.9 - Heart kimberli
[2023-05-04 10:53] LABS: POC Glucose,Bedside 109 (70-110)
[2023-05-04 11:52] LABS: Chloride 105 mmol/L (98-107); Sodium 142 mmol/L (136-145)
[2023-05-04 11:53] LABS: Potassium 4.4 mmoL/L (3.5-5.1)
[2023-05-04 11:55] LABS: Blood Urea Nitrogen 36 mg/dl (7-17); Creatinine Clearance Estimated 19 mL/min (50-200); Estimated Glomerular Filt Rate 25 ml/min (>60); GFR (African American) 31 ML/MIN (>60)
[2023-05-04 11:56] LABS: Anion Gap 7.4 mEq/L (5-15); Calcium 8.5 mg/dl (8.4-10.2); Carbon Dioxide 34 mmol/L (22.0-30.0); Glucose 110 mg/dl (74-100)
--- NOTE | 2023-05-04 12:13 | PC.NURSE ---
courtesy tech note: pt is sitting up in bed pw is attached and working. call light is within reach and family is at BS
[2023-05-04 12:41] LABS: Ammonia 140 umol/L (9-30)
[2023-05-04 16:05] LABS: POC Glucose,Bedside 166 (70-110)
--- NOTE | 2023-05-04 16:45 | PC.NURSE ---
PT IS RESTING IN BED. ALERT AND ORIENTED X3. PT IS EATING AND DRINKING WELL. TURNED AND REPOSITIONED IN BED. GENERALIZED EDEMA NOTED. AFTER MULTIPLE ATTEMPTS NEW IV ACCESS NOTED TO THE RUE (US GUIDED). LUNG SOUNDS CLEAR. ABDOMEN LARGE/OBESE WITH HYPOACTIVE BOWEL SOUNDS. WILL CONTINUE TO MONITOR.
--- NOTE | 2023-05-04 17:08 | PC.NURSE ---
AT 1700 ROUNDS PT WAS SOMEWHAT DIFFICULT TO AWAKEN. WHEN AWAKE SHE WAS ABLE TO GIVE DIRECT EYE CONTACT AND WOULD FOLLOW COMMANDS BUT WAS HAVING ISSUES WITH FINDING HER WORDS. VSS. HOSPITALIST NOTIFIED AND ARRIVED TO BEDSIDE. AFTER 5 MIN PT STARTED TALKING AND ANSWERING QUESTIONS. HOSPITALIST ORDERED FOR PT TO HAVE HER 2100 DOSE OF RIFAXIMIN NOW AND TO DC [place].
[2023-05-04 17:14] LABS: POC Glucose,Bedside 143 (70-110)
[2023-05-04 20:31] LABS: POC Glucose,Bedside 181 (70-110)
[2023-05-05] VITALS (8 sets, daily range): BP systolic 133–182; BP diastolic 59–80; PULSE 59–82; RESP 16–22; TEMP 36.7–36.8; O2SAT 96–99; BMI 41.8
[2023-05-05 05:25] LABS: POC Glucose,Bedside 106 (70-110)
[2023-05-05 08:47] LABS: Anion Gap 9.1 mEq/L (5-15); Basophils % 0.6 % (0.1-2.0); Blood Urea Nitrogen 36 mg/dl (7-17); Calcium 8.6 mg/dl (8.4-10.2); Carbon Dioxide 35 mmol/L (22.0-30.0); Chloride 104 mmol/L (98-107); Creatinine Clearance Estimated 18 mL/min (50-200); Eosinophils # 0.1 K/mm3 (0.0-0.4); Eosinophils % 2.4 % (0.1-12.0); Estimated Glomerular Filt Rate 24 ml/min (>60); GFR (African American) 29 ML/MIN (>60); Glucose 108 mg/dl (74-100); Hemoglobin 9.7 g/dL (12.2-16.2); Lymphocytes # 1.5 K/mm3 (0.7-4.5); Lymphocytes % 25.4 % (10-50); Mean Corpuscular HGB Conc 29.2 g/dL (31.8-35.4); Mean Corpuscular Hemoglobin 29.2 pg (27.0-31.2); Mean Corpuscular Volume 99.8 fl (81-99); Mean Platelet Volume 8.5 fl (7.4-10.4); Monocytes # 0.6 K/mm3 (0.1-1.0); Monocytes % 10.1 % (1.7-9.3); Neutrophils # 3.7 K/mm3 (1.8-7.8); Neutrophils % 61.5 % (37.0-80.0); Platelet Count 358 K/mm3 (142-424); Potassium 4.1 mmoL/L (3.5-5.1); Red Blood Count 3.31 M/mm3 (4.20-5.40); Red Cell Distribution Width 15.5 % (11.5-17.5); Sodium 144 mmol/L (136-145)
[2023-05-05 11:48] LABS: Ammonia 95 umol/L (9-30)
[2023-05-05 11:57] LABS: POC Glucose,Bedside 176 (70-110)
--- NOTE | 2023-05-05 12:20 | EXP.PN ---
Subjective *Date: 05/05/23 *Time: 12:20 Interval history: No acute events overnight. She feels a little better today compared to yesterday. She had a bowel movement yesterday. Exam Data for Last 24 hours Vital signs and Labs for Last 24 Hours: Temp Pulse Resp BP Pulse Ox O2 Del Method O2 Flow Rate 98.3 F 62 22 159/63 H 99 Nasal Cannula 2 05/05/23 08:00 05/05/23 08:00 05/05/23 08:00 05/05/23 08:00 05/05/23 08:00 05/05/23 11:00 05/05/23 11:00 Laboratory Results - last 24 hr 05/04/23 12:20: Ammonia 140 H 05/04/23 15:32: POC Glucose 166 H 05/04/23 17:01: POC Glucose 143 H 05/04/23 20:19: POC Glucose 181 H 05/05/23 05:11: POC Glucose 106 05/05/23 08:14: WBC 6.0, RBC 3.31 L, Hgb 9.7 L, Hct 33.0 L, MCV 99.8 H, MCH 29.2, MCHC 29.2 L, RDW 15.5, Plt Count 358, MPV 8.5, Neut % (Auto) 61.5, Lymph % (Auto) 25.4, [place] % (Auto) 10.1 H, Eos % (Auto) 2.4, Baso % (Auto) 0.6, Neut # (Auto) 3.7, Lymph # (Auto) 1.5, [place] # (Auto) 0.6, Eos # (Auto) 0.1, Baso # (Auto) 0.0, Sodium 144, Potassium 4.1, Chloride 104, Carbon Dioxide 35 H, Anion Gap 9.1, BUN 36 H, Creatinine 2.00 H, Estimated Creat Clear 18, Estimated GFR 24 L, Est GFR ( Amer) 29 L, Glucose 108 H, Calcium 8.6, Ammonia 95 H 05/05/23 11:35: POC Glucose 176 H Temp Pulse Resp BP Pulse Ox 98.3 F 77 17 154/71 H 96 10/14/22 15:25 10/14/22 15:25 10/14/22 15:25 10/14/22 15:25 10/14/22 15:25 Laboratory Results - last 24 hr 10/13/22 14:30: Blood Type A Positive, Antibody Screen Negative, Crossmatch (AHG) See Detail 10/13/22 17:14: POC Glucose 139 H 10/13/22 21:32: POC Glucose 203 H 10/14/22 01:23: POC Glucose 149 H 10/14/22 02:00: Hgb 9.0 L D, Hct 27.6 L 10/14/22 05:23: POC Glucose 142 H 10/14/22 08:00: WBC 5.2, RBC 2.96 L, Hgb 8.8 L, Hct 26.0 L, MCV 87.8, MCH 29.8, MCHC 33.9, RDW 18.2 H, Plt Count 469 H, MPV 8.0, Neut % (Auto) 60.1, Lymph % (Auto) 24.3, [place] % (Auto) 8.2, Eos % (Auto) 6.4, Baso % (Auto) 0.9, Neut # (Auto) 3.1, Lymph # (Auto) 1.3, [place] # (Auto) 0.4, Eos # (Auto) 0.3, Baso # (Auto) 0.1 10/14/22 08:00: Sodium 145, Potassium 3.5, Chloride 113 H, Carbon Dioxide 28, Anion Gap 7.5, BUN 27 H, Creatinine 1.70 H, Estimated Creat Clear 42, Estimated GFR 29 L, Est GFR ( Amer) 35 L, Glucose 132 H D, Calcium 8.1 L, Magnesium 1.8, Total Bilirubin 0.4, AST 30, ALT 18, Alkaline Phosphatase 113, Total Protein 4.8 L, Albumin 2.5 L D, Globulin 2.3, Albumin/Globulin Ratio 1.1 10/14/22 08:00: Ammonia 61 H 10/14/22 11:29: POC Glucose 143 H 10/14/22 17:28: POC Glucose 162 H I & O for Last 24 hours: Intake & Output 05/02/23 05/03/23 05/04/23 05/05/23 23:59 23:59 23:59 23:59 Intake Total 1800 / 2040 1332 / 1332 442 / 802 600 / 600 Output Total 850 / 1325 1175 / 1425 2450 / 2650 450 / 450 Balance 950 / 715 157 / -93 -2008 / -1848 150 / 150 Weight 111.538 kg 111.725 kg 112.094 kg 113.908 kg Intake & Output 10/11/22 10/12/22 10/13/22 10/14/22 23:59 23:59 23:59 23:59 Intake Total 250 / 250 0 / 0 Output Total 1675 / 1675 2700 / 2700 Balance -1425 / -1425 -2700 / -2700 Weight 103.532 kg 104.3 kg Microbiology Reports for the Last 24 Hours: Microbiology 10/13/22 10:07 Urine,Catheterized Urine Culture - Preliminary NO GROWTH AFTER 24 HOURS Constitutional Constitutional: no acute distress, morbidly obese, chronically ill appearing and cooperative *Routine HEENT Exam Head: Present normocephalic Eye: Present EOMI and PERRL ENT: Present mucous membranes moist *Routine Neck Exam Neck: Present supple; Absent swelling *Routine Respiratory Exam Respiratory: Present CTA bilaterally; Absent accessory muscle use, rhonchi, wheezes or crackles *Routine Cardiovascular Exam Cardiovascular: Present RRR and murmur *Routine Abdominal Exam Abdominal: Present soft and normoactive bowel sounds; Absent tenderness *Routine Rectal Exam Patient deferred: visual exam *Routine Exam Patient deferred: external exam *Rout
--- NOTE | 2023-05-05 15:14 | PC.NURSE ---
PT IS RESTING IN BED. ALERT AND ORIENTED X3. EATING AND DRINKING WELL. TOLERATING PO MEDICATIONS. PT CONTINUES TO HAVE GENERALIZED EDEMA. DRESSINGS TO RUE, RLE AND COCCYX HAVE BEEN CHANGED THIS SHIFT. LUNG SOUNDS DIMINISHED. ABDOMEN SOFT/LARGE WITH ACTIVE BOWEL SOUNDS. PURWICK IN PLACE. WILL CONTINUE TO MONITOR.
[2023-05-05 17:18] LABS: POC Glucose,Bedside 252 (70-110)
--- NOTE | 2023-05-05 19:55 | PC.NURSE ---
RLE and RLA dsg changed. steri strips, non adherent guaze, kerlix and coban to hold dsg in place d/t frequent displacement of kerlix
[2023-05-05 20:58] LABS: POC Glucose,Bedside 215 (70-110)
[2023-05-06] VITALS: BP 156/74; PULSE 70; PULSE 76; RESP 17; TEMP 36.6; O2SAT 98
[2023-05-06 04:00] VITALS: BP 153/63; PULSE 63; PULSE 70; RESP 16; TEMP 36.8; O2SAT 95; BMI 40.8
[2023-05-06 05:29] LABS: POC Glucose,Bedside 115 (70-110)
[2023-05-06 07:00] LABS: Ammonia 36 umol/L (9-30)
[2023-05-06 07:09] LABS: Anion Gap 6.6 mEq/L (5-15); Blood Urea Nitrogen 32 mg/dl (7-17); Calcium 8.4 mg/dl (8.4-10.2); Carbon Dioxide 35 mmol/L (22.0-30.0); Chloride 107 mmol/L (98-107); Creatinine Clearance Estimated 22 mL/min (50-200); Estimated Glomerular Filt Rate 29 ml/min (>60); GFR (African American) 35 ML/MIN (>60); Glucose 99 mg/dl (74-100); Potassium 3.6 mmoL/L (3.5-5.1); Sodium 145 mmol/L (136-145)
[2023-05-06 07:25] LABS: NT Pro Brain Natriuretic Pep. 3420 pg/mL (0-450)
[2023-05-06 08:00] VITALS: BP 169/70; PULSE 74; PULSE 80; RESP 20; TEMP 36.7; O2SAT 94
--- NOTE | 2023-05-06 09:35 | PC.NURSE ---
COURTESY TECH NOTE; ROUNDED ON PT 0810, PT DENIED NEED FOR DRINK. ASSISTED PRIMARY TECH AND PT WITH BEDPAN, AND ASSISTED TO REPOSITION PT IN BED. CALL LIGHT WITHIN REACH, NO FURTHER REQUESTS AT THIS TIME JERRI PULIDO
--- NOTE | 2023-05-06 10:36 | EXP.CARD.PN ---
Subjective Subjective Date: 05/06/23 Time: 08:30 Principal diagnosis: CHF exacerbation Interval history: Patient denies chest pain or shortness of breath, continues to diurese. Morning labs reviewed. Exam Data for Last 24 hours Vital signs and Labs for Last 24 Hours: Temp Pulse Resp BP Pulse Ox O2 Del Method O2 Flow Rate 98.1 F 74 20 169/70 H 94 L Room Air 1 05/06/23 08:00 05/06/23 08:00 05/06/23 08:00 05/06/23 08:00 05/06/23 08:00 05/06/23 09:00 05/06/23 06:21 Laboratory Results - last 24 hr 05/05/23 08:14: Ammonia 95 H 05/05/23 11:35: POC Glucose 176 H 05/05/23 16:32: POC Glucose 252 H 05/05/23 20:11: POC Glucose 215 H 05/06/23 05:19: POC Glucose 115 H 05/06/23 06:29: Sodium 145, Potassium 3.6, Chloride 107, Carbon Dioxide 35 H, Anion Gap 6.6, BUN 32 H, Creatinine 1.70 H, Estimated Creat Clear 22, Estimated GFR 29 L, Est GFR ( Amer) 35 L D, Glucose 99, Calcium 8.4, Ammonia 36 H, NT-Pro-B Natriuret Pep 3420 H I & O for Last 24 hours: Intake & Output 05/03/23 05/04/23 05/05/23 05/06/23 23:59 23:59 23:59 23:59 Intake Total 1332 / 1332 442 / 802 1440 / 1440 180 / 180 Output Total 1175 / 1425 2450 / 2650 800 / 800 250 / 250 Balance 157 / -93 -2008 / -1848 640 / 640 -70 / -70 Weight 246 lb 4.983 oz 247 lb 2.008 oz 251 lb 2 oz 245 lb 6.4 oz Constitutional Constitutional: no acute distress *Routine Respiratory Exam Respiratory: Present rhonchi and crackles *Routine Cardiovascular Exam Cardiovascular: Present RRR, Normal S1, Normal S2 and murmur *Routine Extremities Exam Extremities: Present edema Progress Note: A&P Assessment and plan (1) Acute respiratory failure with hypoxia: Status: Acute (2) CHF exacerbation: Status: Acute (3) Morbid obesity: Status: Acute (4) Chronic kidney disease: Status: Acute Assessment and Plan Assessment and Plan for All Diagnoses:: Acute hypoxic respiratory failure HFpEF NYHA III Diastolic dysfunction grade II Moderate aortic valve stenosis -Echo from 05/01/2023: EF 55, moderate , increased RSVP @45 -Bumex 2mg IV BID -Strict I's and O's -Add jardiance 10mg po daily after diureses and improvement of kidney function 05/03/2023: -1450 mL noted. BNP moving. 2+ bilateral lower extremity edema still present. Due to worsening kidney function will decrease Bumex to 2 mg IV once a day. 05/05/2023: Continues to diurese, kidney function stable. Continue Bumex 2 mg IV daily. Add aldactone 25mg daily. Acute kidney injury in the setting of diuretics -Creatinine up to 1.7 today (baseline 1.5-2.0), continue to monitor Hx Paroxysmal Afib Chadsvasc score 9 -Currently NSR rate of 65 -Increase carvedilol to 12.5mg BID -No oac due to hx of GI bleed-Per history Hx of CAD -MARIANN to LAD and RCA November 2021 -Continue Plavix 75mg daily, coreg 6.25mg bid. no statin due to hx of cirrhosis. Diabetes Mellitus type II -Defer to primary service -Jardiance prior to dc home Hx of Cirrhosis with acute hepatic encephalopathy-resolving -Patient much more alert and oriented today, ammonia down to 68 from 164 CV summary 05/05/2023: Patient continues to diurese. Add Aldactone 25 mg p.o. daily to Bumex 2 mg IV daily. Acceptable risk to proceed with port placement. Monitor I&os CV Medications: Ranexa 500mg p.o. twice daily Bumex 2 mg IV daily Plavix 75 mg p.o. daily Carvedilol 12.5 mg p.o. twice daily Aldactone 25mg po daily Needs Jardiance prior to discharge
[2023-05-06 11:18] LABS: POC Glucose,Bedside 144 (70-110)
--- NOTE | 2023-05-06 11:43 | HMH.PTEV ---
Physical Therapy Evaluation Rehab PT IP Evaluation Start: 05/05/23 12:29 Freq: ONCE Status: Active Protocol: Document 05/06/23 09:45 JESIKA (Rec: 05/06/23 11:43 PHOFRANDY [id number]) Subjective/History History History 82 yowf adm to [facility] with CHF exac. She has hx of CHF, Cirrhosis, HTN, hepatic encephalopathy, HLD, DM, dementia, CAD, CKD, COPD. She was residing in SNF prior to adm and was using w/c for primary mobility with assistance for all ADLs. Subjective Subjective Pt currently has no c/o other than general LE soreness. Rehab PT IP Eval Objective Appearance Patient Behavior Appropriate Patient Orientation Person,Place Difficulty following instructions none Speech Pattern Clear Ambulation Patient Able to Ambulate No Balance Ability to Arise Unable Sitting Balance Steady, safe Standing Balance Unsteady Dynamic Sitting Balance Ability Fair Dynamic Standing Balance Ability Poor Transfers Bed Transfer Ability Moderate x 1 (50% assist) Chair Transfer Ability Maximum x 1 (75% assist) Sit to Stand Bed Transfer Ability Maximum x 1 (75% assist) Sit to Stand Chair Transfer Ability Maximum x 1 (75% assist) Rehab PT IP prob,goals,plan Problems Date of Evaluation: 05/06/23 PT IP Problems Bed Mobility,Transfers Rehab Potential Rehab Potential Good Plan PT Intervention Plan Bed Mobility,Transfers, Therapeutic Exercise PT Plan Frequency Daily Duration LOS Discharge Goals Bed Transfer Ability Minimal x 2 (25% assist) Sit to Stand Chair Transfer Ability Moderate x 2 (50% assist) Discharge Plan PT Discharge Plan Pt is currently appropriate to return to SNF for rehab placement once medically stable for d/c. G -code Required No Eval Complexity Eval Charge Codes 73772 - High Complexity PHYSICIAN CERTIFICATION: I certify the specified therapy services for Dewayne Moctezuma are required, authorized, and reviewed every 30 days.
[2023-05-06 12:00] VITALS: BP 168/73; PULSE 64; PULSE 70; RESP 20; TEMP 36.7; O2SAT 99
[2023-05-06 16:00] VITALS: BP 188/70; PULSE 68; PULSE 70; TEMP 36.7; O2SAT 96
--- NOTE | 2023-05-06 16:47 | PC.NURSE ---
A&OX4. TOLERATING 1LNC WELL. PT HAS HAD MULTIPLE LOOSE BMS THIS SHIFT. USING BEDPAN WELL. PURE WICK IN PLACE, WORKING WELL. PT HAS HAD GOOD U/O. X2 ASSIST TO TURN IN BED. FAMILY HAS BEEN AT BEDSIDE T/O SHIFT. PT HAS NO OTHER NEEDS OR C/O NOTED THUS FAR. BP HAS BEEN ON THE HIGHER SIDE. CARDIOLOGY ADJUSTED MEDS TODAY. VSS.
[2023-05-06 18:42] LABS: POC Glucose,Bedside 194 (70-110)
[2023-05-06 20:00] VITALS: BP 163/65; PULSE 70; PULSE 73; RESP 19; TEMP 36.9; O2SAT 96
[2023-05-06 22:00] LABS: POC Glucose,Bedside 278 (70-110)
--- NOTE | 2023-05-06 23:31 | EXP.PN ---
Subjective *Date: 05/06/23 *Time: 10:00 Interval history: No acute events overnight. She had a bowel movement. Denies chest pain or shortness of breath. Exam Data for Last 24 hours Vital signs and Labs for Last 24 Hours: Temp Pulse Resp BP Pulse Ox O2 Del Method O2 Flow Rate 98.5 F 73 19 163/65 H 96 Nasal Cannula 1 05/06/23 20:00 05/06/23 20:00 05/06/23 20:00 05/06/23 20:00 05/06/23 20:00 05/06/23 20:00 05/06/23 20:00 Laboratory Results - last 24 hr 05/06/23 05:19: POC Glucose 115 H 05/06/23 06:29: Sodium 145, Potassium 3.6, Chloride 107, Carbon Dioxide 35 H, Anion Gap 6.6, BUN 32 H, Creatinine 1.70 H, Estimated Creat Clear 22, Estimated GFR 29 L, Est GFR ( Amer) 35 L D, Glucose 99, Calcium 8.4, Ammonia 36 H, NT-Pro-B Natriuret Pep 3420 H 05/06/23 11:11: POC Glucose 144 H 05/06/23 16:08: POC Glucose 194 H 05/06/23 20:34: POC Glucose 278 H Temp Pulse Resp BP Pulse Ox 98.3 F 77 17 154/71 H 96 10/14/22 15:25 10/14/22 15:25 10/14/22 15:25 10/14/22 15:25 10/14/22 15:25 Laboratory Results - last 24 hr 10/13/22 14:30: Blood Type A Positive, Antibody Screen Negative, Crossmatch (AHG) See Detail 10/13/22 17:14: POC Glucose 139 H 10/13/22 21:32: POC Glucose 203 H 10/14/22 01:23: POC Glucose 149 H 10/14/22 02:00: Hgb 9.0 L D, Hct 27.6 L 10/14/22 05:23: POC Glucose 142 H 10/14/22 08:00: WBC 5.2, RBC 2.96 L, Hgb 8.8 L, Hct 26.0 L, MCV 87.8, MCH 29.8, MCHC 33.9, RDW 18.2 H, Plt Count 469 H, MPV 8.0, Neut % (Auto) 60.1, Lymph % (Auto) 24.3, [place] % (Auto) 8.2, Eos % (Auto) 6.4, Baso % (Auto) 0.9, Neut # (Auto) 3.1, Lymph # (Auto) 1.3, [place] # (Auto) 0.4, Eos # (Auto) 0.3, Baso # (Auto) 0.1 10/14/22 08:00: Sodium 145, Potassium 3.5, Chloride 113 H, Carbon Dioxide 28, Anion Gap 7.5, BUN 27 H, Creatinine 1.70 H, Estimated Creat Clear 42, Estimated GFR 29 L, Est GFR ( Amer) 35 L, Glucose 132 H D, Calcium 8.1 L, Magnesium 1.8, Total Bilirubin 0.4, AST 30, ALT 18, Alkaline Phosphatase 113, Total Protein 4.8 L, Albumin 2.5 L D, Globulin 2.3, Albumin/Globulin Ratio 1.1 10/14/22 08:00: Ammonia 61 H 10/14/22 11:29: POC Glucose 143 H 10/14/22 17:28: POC Glucose 162 H I & O for Last 24 hours: Intake & Output 05/03/23 05/04/23 05/05/23 05/06/23 23:59 23:59 23:59 23:59 Intake Total 1332 / 1332 442 / 802 1440 / 1440 1140 / 1140 Output Total 1175 / 1425 2450 / 2650 800 / 800 500 / 500 Balance 157 / -93 -2007 / -1848 640 / 640 640 / 640 Weight 111.725 kg 112.094 kg 113.908 kg 111.312 kg Intake & Output 10/11/22 10/12/22 10/13/22 10/14/22 23:59 23:59 23:59 23:59 Intake Total 250 / 250 0 / 0 Output Total 1675 / 1675 2700 / 2700 Balance -1425 / -1425 -2700 / -2700 Weight 103.532 kg 104.3 kg Microbiology Reports for the Last 24 Hours: Microbiology 10/13/22 10:07 Urine,Catheterized Urine Culture - Preliminary NO GROWTH AFTER 24 HOURS Constitutional Constitutional: no acute distress, morbidly obese, chronically ill appearing and cooperative *Routine HEENT Exam Head: Present normocephalic Eye: Present EOMI and PERRL ENT: Present mucous membranes moist *Routine Neck Exam Neck: Present supple; Absent swelling *Routine Respiratory Exam Respiratory: Present CTA bilaterally; Absent accessory muscle use, rhonchi, wheezes or crackles *Routine Cardiovascular Exam Cardiovascular: Present RRR and murmur *Routine Abdominal Exam Abdominal: Present soft and normoactive bowel sounds; Absent tenderness *Routine Rectal Exam Patient deferred: visual exam *Routine Exam Patient deferred: external exam *Routine Extremities Exam Extremities: Present edema (2+ to knees); Absent cyanosis or clubbing *Routine Skin Exam Skin: Present warm; Absent rash Comments: pitting edema in bilateral extremities extending to back and flanks *Routine Neurological Exam Neurological: Present alert and moving all extremities; Absent altered mental status Comments: Oriented to p
[2023-05-07] VITALS: BP 139/47; PULSE 60; PULSE 62; RESP 19; TEMP 37.1; O2SAT 97
[2023-05-07 04:00] VITALS: BP 136/60; PULSE 60; RESP 17; TEMP 36.8; O2SAT 96; BMI 40.1
--- NOTE | 2023-05-07 04:33 | PC.NURSE ---
dsg to RLE and RA changed, steri strips in place, non adherent pad and kerlix
[2023-05-07 05:17] LABS: POC Glucose,Bedside 160 (70-110)
[2023-05-07 07:06] LABS: Basophils % 0.5 % (0.1-2.0); Eosinophils # 0.2 K/mm3 (0.0-0.4); Eosinophils % 2.8 % (0.1-12.0); Hemoglobin 9.2 g/dL (12.2-16.2); Lymphocytes # 1.3 K/mm3 (0.7-4.5); Lymphocytes % 24.5 % (10-50); Mean Corpuscular HGB Conc 29.5 g/dL (31.8-35.4); Mean Corpuscular Hemoglobin 29.8 pg (27.0-31.2); Mean Corpuscular Volume 100.9 fl (81-99); Mean Platelet Volume 8.5 fl (7.4-10.4); Monocytes # 0.7 K/mm3 (0.1-1.0); Monocytes % 12.7 % (1.7-9.3); Neutrophils # 3.2 K/mm3 (1.8-7.8); Neutrophils % 59.4 % (37.0-80.0); Platelet Count 311 K/mm3 (142-424); Red Blood Count 3.08 M/mm3 (4.20-5.40); Red Cell Distribution Width 15.4 % (11.5-17.5); White Blood Count 5.4 K/mm3 (4.8-10.8)
[2023-05-07 07:09] LABS: Anion Gap 6.9 mEq/L (5-15); Blood Urea Nitrogen 29 mg/dl (7-17); Calcium 8.5 mg/dl (8.4-10.2); Carbon Dioxide 37 mmol/L (22.0-30.0); Chloride 106 mmol/L (98-107); Creatinine Clearance Estimated 20 mL/min (50-200); Estimated Glomerular Filt Rate 27 ml/min (>60); GFR (African American) 33 ML/MIN (>60); Glucose 108 mg/dl (74-100); Potassium 3.9 mmoL/L (3.5-5.1); Sodium 146 mmol/L (136-145)
[2023-05-07 08:00] VITALS: BP 155/61; PULSE 60; PULSE 61; RESP 18; TEMP 36.8; O2SAT 100; O2SAT 95
--- NOTE | 2023-05-07 09:50 | EXP.CARD.PN ---
Subjective Subjective Date: 05/07/23 Time: 08:30 Principal diagnosis: CHF exacerbation Interval history: Doing well this morning, reports shortness of air has decreased. Still has lower extremity edema present. Morning labs reviewed. Exam Data for Last 24 hours Vital signs and Labs for Last 24 Hours: Temp Pulse Resp BP Pulse Ox O2 Del Method O2 Flow Rate 98.2 F 61 18 155/61 H 100 Room Air 1 05/07/23 08:00 05/07/23 08:00 05/07/23 08:00 05/07/23 08:00 05/07/23 08:00 05/07/23 08:33 05/07/23 08:00 Laboratory Results - last 24 hr 05/06/23 11:11: POC Glucose 144 H 05/06/23 16:08: POC Glucose 194 H 05/06/23 20:34: POC Glucose 278 H 05/07/23 05:06: POC Glucose 160 H 05/07/23 06:20: WBC 5.4, RBC 3.08 L, Hgb 9.2 L, Hct 31.0 L, MCV 100.9 H, MCH 29.8, MCHC 29.5 L, RDW 15.4, Plt Count 311, MPV 8.5, Neut % (Auto) 59.4, Lymph % (Auto) 24.5, [place] % (Auto) 12.7 H, Eos % (Auto) 2.8, Baso % (Auto) 0.5, Neut # (Auto) 3.2, Lymph # (Auto) 1.3, [place] # (Auto) 0.7, Eos # (Auto) 0.2, Baso # (Auto) 0.0, Sodium 146 H, Potassium 3.9, Chloride 106, Carbon Dioxide 37 H, Anion Gap 6.9, BUN 29 H, Creatinine 1.80 H, Estimated Creat Clear 20, Estimated GFR 27 L, Est GFR ( Amer) 33 L, Glucose 108 H, Calcium 8.5 I & O for Last 24 hours: Intake & Output 05/04/23 05/05/23 05/06/23 05/07/23 23:59 23:59 23:59 23:59 Intake Total 442 / 802 1440 / 1440 1140 / 1260 620 / 620 Output Total 2450 / 2650 800 / 800 500 / 500 200 / 200 Balance -2007 640 / 640 640 / 760 420 / 420 Weight 247 lb 2.008 oz 251 lb 2 oz 245 lb 6.4 oz 241 lb 1.6 oz Microbiology Reports for the Last 24 Hours: Microbiology 10/13/22 10:07 Urine,Catheterized Urine Culture - Preliminary NO GROWTH AFTER 24 HOURS Constitutional Constitutional: no acute distress, morbidly obese, chronically ill appearing and cooperative *Routine HEENT Exam Head: Present normocephalic Eye: Present EOMI and PERRL ENT: Present mucous membranes moist *Routine Neck Exam Neck: Present supple; Absent swelling *Routine Respiratory Exam Respiratory: Present CTA bilaterally; Absent accessory muscle use, rhonchi, wheezes or crackles *Routine Cardiovascular Exam Cardiovascular: Present RRR and murmur *Routine Abdominal Exam Abdominal: Present soft and normoactive bowel sounds; Absent tenderness *Routine Rectal Exam Patient deferred: visual exam *Routine Exam Patient deferred: external exam *Routine Extremities Exam Extremities: Present edema (2+ to knees); Absent cyanosis or clubbing *Routine Skin Exam Skin: Present warm; Absent rash Comments: pitting edema in bilateral extremities extending to back and flanks *Routine Neurological Exam Neurological: Present alert and moving all extremities; Absent altered mental status Comments: Oriented to person and place. Answering questions appropriately Progress Note: A&P Assessment and plan (1) Acute respiratory failure with hypoxia: Status: Acute (2) CHF exacerbation: Status: Acute (3) Morbid obesity: Status: Acute (4) Chronic kidney disease: Status: Acute Assessment and Plan Assessment and Plan for All Diagnoses:: Acute hypoxic respiratory failure HFpEF NYHA III Diastolic dysfunction grade II Moderate aortic valve stenosis -Echo from 05/01/2023: EF 55, moderate , increased RSVP @45 -Bumex 2mg IV BID -Strict I's and O's -Add jardiance 10mg po daily after diureses and improvement of kidney function 05/03/2023: -1450 mL noted. BNP moving. 2+ bilateral lower extremity edema still present. Due to worsening kidney function will decrease Bumex to 2 mg IV once a day. 05/06/2023: Continues to diurese, kidney function stable. Continue Bumex 2 mg IV daily. Add aldactone 25mg daily. Acute kidney injury in the setting of diuretics -Creatinine up to 1.8 today (baseline 1.5-2.0), continue to monitor Hx Paroxysmal Afib Chadsvasc score 9 -Currently NSR rate of 65 -Increase carved
[2023-05-07 10:35] LABS: POC Glucose,Bedside 118 (70-110)
[2023-05-07 11:47] VITALS: BP 124/46; PULSE 62; RESP 17; TEMP 37.1; O2SAT 94
[2023-05-07 12:00] VITALS: PULSE 60
--- NOTE | 2023-05-07 13:44 | PC.NURSE ---
Pt. episode of emesis times 1 and zofran iv given.
--- NOTE | 2023-05-07 14:09 | PC.NURSE ---
Pt. is 91% on RA.
--- NOTE | 2023-05-07 14:37 | EXP.DC.SUM ---
General Admission date:: 05/02/23 Discharge date: 05/07/23 HPI HPI HPI: Ms. Moctezuma is an 81 year old female with a past medical history of cirrhosis, hepatic encephalopathy, htn, hld, diabetes, dementia, morbid obesity, wheelchair bound for the past 7 months, CAD, CHF, COPD and CKD who presented from [facility] due to hypoxia after a choking episode. She was swallowing medications with water when she began choking; she was noted to have oxygen saturations near 86% on RA. In the ED SpO2 has ranged 89-91% on RA and has come up to mid 90s on 2L NC. She denies chest pain or shortness of breath but does report worsening swelling over the past month. She denies cough, fever, abdominal pain, dysuria and diarrhea. Echo from 11/2021 revealed LVEF 55-60% and grade 2 diastolic dysfunction. Initial workup from the ED reveals BNP 3960 (it was 2470 on 04/14/23). Troponin level is within normal limits. EKG is without overt ischemic changes. CXR is with worsening bibasilar pulmonary opacities consistent with recent atelectasis or pneumonia. Hospital Course Hospital Course Hospital Course: 82-year-old female admitted for CHF exacerbation with volume overload. Also developed hepatic encephalopathy necessitating increase in her bowel regimen. Seen drastic improvement during hospitalization with decreased oxygen requirement, significant diuresis during hospitalization, and improvement in mentation as her ammonia has normalized. Meeting criteria for discharge back to nursing facility. Problems addressed as follows: echocardiogram 05/01/23: Normal biventricular systolic function. Increased LV wall thickness. Moderate aortic valve calcification. Moderate aortic stenosis is present. Moderate MAC. No MS. Mild MR. Moderate TR. Markedly elevated RVSP = 45 mmHg + RA pressure. Today her swelling may have slightly decreased. Her kidney function is stable. The patient has had recurrent admissions and there has been much difficulty accessing veins; she may need to follow up with General Surgery in the outpatient setting for port placement. Cardiology cleared her for the procedure. Lactulose was started during this admission because the patient's ammonia level was elevated and fortunately it has come down; will aim for the patient to have 2-5 bowel movements a day. Continue her home medication rifaximin. Acute hypoxic respiratory failure HFpEF NYHA III Diastolic dysfunction grade II Moderate aortic valve stenosis -Echo from 05/01/2023: EF 55, moderate , increased RSVP @45. Cardiology was consulted. Recommended diuresis during hospitalization. Tolerated 2 mg IV Bumex twice daily until her creatinine started to bump somewhat. We will continue Bumex 2 mg daily at time of discharge along with the initiation of Aldactone 25 mg daily. Has had significant output during hospitalization. Would recommend continuing to monitor her volume intake and limit intake to 1.5 to 2 L. At this time she is down to no oxygen during the day while awake but requiring 1 to 2 L while sleeping. As she has desaturations when she sleeps, would recommend intermittent oxygen as needed for goal sats greater than 90%. 1 to 2 L as needed. Room air if able to tolerate with sats greater 90%. In regard to her heart failure, would recommend initiating Jardiance 10 mg daily if sees improvement in her kidney function allowing initiation of this medication. Defer to outpatient setting in primary care if kidney function improves allowing initiation. Acute kidney injury in the setting of diuretics -Creatinine has been monitored daily during admission. Done well with the resumption of diuretics. 1.8 on day of discharge. Patient's baseline is 1.5-1.8. Recommend repeat labs in 1 week to monitor creatinine and electrolytes. Please order CBC, CMP, and magnesium in 1 week. Hx Paroxysmal Afib Chadsvasc score 9 -History of paroxysmal A-fib. Currently normal sinus rhythm. Increased her carvedilo
--- NOTE | 2023-05-07 15:52 | PC.NURSE ---
report called to [facility] and given to mayuri cotter rn.
== END 2023-05-07 16:22 | DRG 291 ==
LOC: ER 13:00 → 2ND 14:22
PROVIDERS: Admitting Provider Internal Medicine; Emergency Provider Emergency Medicine; Visit Provider Internal Medicine
DX: I13.0 Hypertensive heart and chronic kidney disease with heart failure and stage 1 through stage 4 chronic kidney disease, or unspecified chronic kidney disease (principal); I50.33 Acute on chronic diastolic (congestive) heart failure; J96.21 Acute and chronic respiratory failure with hypoxia; Z68.41 Body mass index [BMI] 40.0-44.9, adult; E66.01 Morbid (severe) obesity due to excess calories; K76.82 Hepatic encephalopathy; N18.9 Chronic kidney disease, unspecified; I35.0 Nonrheumatic aortic (valve) stenosis; K74.60 Unspecified cirrhosis of liver; I48.0 Paroxysmal atrial fibrillation; S81.811A Laceration without foreign body, right lower leg, initial encounter; E78.5 Hyperlipidemia, unspecified; J44.9 Chronic obstructive pulmonary disease, unspecified; Z99.3 Dependence on wheelchair; Z79.4 Long term (current) use of insulin
CPT/HCPCS: 12004; 36415; 71045; 80048; 80053; 82140; 82803; 82962; 83735; 83880; 84145; 84484; 85025; 87636; 93005; 93306; 97163; 97530; 99283; 99285; G0378; J2405

== ENCOUNTER 2023-05-23 08:56 | Day surgery (SDC) | payer MEDICARE, OTHER, MEDICAID, SELFPAY ==
[2023-05-21 13:55] VITALS: BMI 39.5
--- NOTE | 2023-05-21 14:18 | SUR.PREOP ---
Pt is on Clopidogrel. Notified cardiology for clearance and senior care staff reports medication has been on hold for the procedure since 05/19/23. pt will need to stay on surgery schedule at 1045 time slot because transportation has been set up and cannot be changed.
[2023-05-23] VITALS (7 sets, daily range): BP systolic 116–172; BP diastolic 46–73; PULSE 72–77; RESP 18; TEMP 36.2–37.2; O2SAT 95–98
--- NOTE | 2023-05-23 | XR_ITS ---
FINAL REPORT CLINICAL HISTORY: PORT A CATH PLACEMENT 54 seconds fluoro time FINDINGS: FLUOROSCOPY LESS THAN 1 HOUR HISTORY: Fluoroscopy guidance. FINDINGS: Fluoroscopic guidance was provided for Port-A-Cath placement. 2 spot films were suggested in the obtained. 54 seconds of fluoroscopy time were used. Total DAP: 9.0 mGy IMPRESSION: As above. Reviewed, Interpreted and Dictated by Nik Russ MD Transcribed by Noa Luciano Authenticated and . [facility]
--- NOTE | 2023-05-23 10:16 | P.PNANES_ITS ---
[facility] Disclaimer: The information contained in this section may have been updated after the patient was seen, as this information can be updated by other users. Medical History Abnormal cardiovascular stress test Anxiety and depression Atherosclerotic heart disease CAD (coronary artery disease) Chest pain Chronic diastolic CHF (congestive heart failure) Chronic kidney disease Diabetes mellitus Diabetes mellitus Dizziness Dyspnea Edema Encounter for pre-operative cardiovascular clearance Fatty liver History of anemia History of transient ischemic attack (TIA) HLD (hyperlipidemia) HTN (hypertension) Hyperkalemia Hypothyroidism Near syncope Non-ST elevated myocardial infarction (non-STEMI) Stroke UTI (urinary tract infection) Family History Other Cancer Hypertension Social History (Updated 05/01/23 @ 15:37 by Marcia Alicea RN) Smoking Status: Former smoker alcohol intake: never substance use type: denies use current occupational status: retired Travel in the last 8 weeks: None household members: none housing: custodial current occupational exposures/hazards: No caffeine: No [facility] Anesthesia Checklist Patient Identification Patient Identification: Arm Band and Verbal (Name & ) Structural Data Admitted From: Home Planned Operative Procedure/s: Port placement Consent for Planned Operative Procedure(s) Verified: Yes Verified Documents: Surgical Consent NPO Status Verified Time NPO: 00:00 Additional verifications Fingerstick Blood Glucose: 78 Patient : No Anesthesia Reactions: No Hx Blood Transfusions: Yes Blood Transfusion Reaction: No Airway Assessment Mallampati Score:: Class III C-Spine Mobility Assessed: Yes TMJ Mobility Assessed: Yes Dentition: Dentures-poor fitting Neurological Assessment Level of Consciousness: Awake and Alert Hx Seizures: No Anesthesia Plan Anesthesia Risk discussed: Yes ASA Class: IV Anesthesia Type: General
[2023-05-23 10:27] LABS: POC Glucose,Bedside 78 (70-110)
--- NOTE | 2023-05-23 12:23 | XR_ITS ---
FINAL REPORT CLINICAL HISTORY: port placement COMPARISON: 05/03/2023 FINDINGS: There has been interval placement of a right chest port with the tip in the SVC. The heart size is normal. The mediastinum is normal. There is chronic scarring at the lung bases. The lungs are better inflated compared to the prior study. There is no focal infiltrate or edema. There are no pleural effusions. There is no pneumothorax. There is no osseous abnormality. IMPRESSION: No acute cardiopulmonary process. New right chest port. Reviewed, Interpreted and Dictated by Nik Russ MD Transcribed by Noa Luciano Authenticated and . [facility]
--- NOTE | 2023-05-23 12:38 | EXP.OP.NOTE ---
Date of procedure: 05/23/23 Pre-op Diagnosis:: Inadequate venous access Post-op Diagnosis:: Same Procedure performed:: Port-A-Cath placement (right subclavian vein access) Surgeon:: Oscar Burns MD Anesthesia: MAC and local Estimated blood loss (mL): 15 Operative findings:: Left subclavian vein initially accessed; however, guidewire unable to be advanced Right subclavian vein accessed Right subclavian vein Port-A-Cath flushed with heparinized saline upon completion of procedure Operative note:: After informed consent was obtained the patient was taken to the operating room and placed in the supine position. Monitored anesthesia care ensued. Her left neck and chest were prepped and draped in a sterile fashion. After infiltration local anesthetic a large bore needle was utilized to access the left subclavian vein. Multiple attempts at advancement of the guidewire were unsuccessful. Further attempts were deemed unwarranted. The decision was made to proceed with placement on the right side. Her right neck and chest were prepped and draped in a sterile fashion. After infiltration local anesthetic her right subclavian vein was accessed. The guidewire was advanced. A transverse incision was made at the guidewire exit site. The underlying fascia was dissected with electrocautery to create a pocket for the port hub. Utilizing a modified Seldinger technique the port catheter was placed in position and secured to the hub. The port flushed without difficulty. The hub was secured to the underlying fascia with interrupted Prolene suture. The deep subcutaneous tissue was reapproximated with nondiet 2-0 Vicryl. Skin was then closed with 4-0 running Monocryl in a subcuticular manner. The port was then flushed with 5 mL of heparinized saline. Dressings were applied and the patient was transferred to recovery in stable condition. Condition: stable Disposition: PACU Specimens:: None Complications:: No immediate. Chest x-ray pending.
[2023-05-23 13:41] LABS: POC Glucose,Bedside 73 (70-110)
[2023-05-23 13:41] LABS: POC Glucose,Bedside 84 (70-110)
== END 2023-05-23 14:10 | disposition home or self-care (01) ==
PROVIDERS: PCP Emergency Medicine; Visit Provider Surgery
DX: I87.2 Venous insufficiency (chronic) (peripheral) (principal); E11.9 Type 2 diabetes mellitus without complications
CPT/HCPCS: 36561; 71045; 76000; 82962; 96374; C1788; J1642

== ENCOUNTER 2023-06-05 09:35 | Outpatient (CLI) | payer MEDICARE, OTHER, MEDICAID, SELFPAY | END 2023-06-05 09:51 | disposition home or self-care (01) | LOC: INF 09:36 | PROVIDERS: PCP Emergency Medicine; Visit Provider Internal Medicine Medical Oncology | DX: I87.2 Venous insufficiency (chronic) (peripheral) (principal); Z45.2 Encounter for adjustment and management of vascular access device | CPT/HCPCS: 96523; J1642 ==

== ENCOUNTER 2023-06-26 10:30 | Outpatient (CLI) | payer MEDICARE, OTHER, MEDICAID, SELFPAY ==
[2023-06-26 10:36] VITALS: BMI 39.9
[2023-06-26 10:49] LABS: Basophils % 0.3 % (0.1-2.0); Eosinophils # 0.1 K/mm3 (0.0-0.4); Eosinophils % 1.8 % (0.1-12.0); Hematocrit 25.9 % (37.0-47.0); Hemoglobin 7.4 g/dL (12.2-16.2); Lymphocytes # 1.4 K/mm3 (0.7-4.5); Lymphocytes % 18.1 % (10-50); Mean Corpuscular HGB Conc 28.7 g/dL (31.8-35.4); Mean Corpuscular Hemoglobin 28.6 pg (27.0-31.2); Mean Corpuscular Volume 99.6 fl (81-99); Mean Platelet Volume 8.5 fl (7.4-10.4); Monocytes # 0.4 K/mm3 (0.1-1.0); Monocytes % 5.1 % (1.7-9.3); Neutrophils # 5.7 K/mm3 (1.8-7.8); Neutrophils % 74.7 % (37.0-80.0); Platelet Count 376 K/mm3 (142-424); Red Cell Distribution Width 14.4 % (11.5-17.5); White Blood Count 7.6 K/mm3 (4.8-10.8)
[2023-06-26 11:50] LABS: Ferritin 24.4 ng/ml (11.1-264)
[2023-06-26 12:51] LABS: Iron 22 ug/dL (37-170)
[2023-06-26 13:00] LABS: Total Iron Binding Capacity 262 ug/dL (265-497)
== END 2023-06-26 10:45 | disposition home or self-care (01) ==
LOC: INF 10:31
PROVIDERS: PCP Emergency Medicine; Visit Provider Internal Medicine Medical Oncology
DX: Z45.2 Encounter for adjustment and management of vascular access device; D50.9 Iron deficiency anemia, unspecified
CPT/HCPCS: 36591; 82728; 83540; 83550; 85025; 96523; J1642

== ENCOUNTER 2023-07-03 10:49 | Outpatient (CLI) | payer MEDICARE, OTHER, SELFPAY ==
[2023-07-03 11:06] VITALS: BP 135/52; PULSE 66; RESP 21; TEMP 36.8; O2SAT 92
[2023-07-03 11:45] VITALS: BP 155/74; PULSE 76; RESP 18; O2SAT 99
== END 2023-07-03 11:50 | disposition home or self-care (01) ==
LOC: INF 10:51
PROVIDERS: PCP Family Medicine; Visit Provider Internal Medicine Medical Oncology
DX: D50.9 Iron deficiency anemia, unspecified (principal)
CPT/HCPCS: 96365; J1642; J1756

== ENCOUNTER 2023-07-03 17:41 | Emergency (ER) | payer MEDICARE, OTHER, MEDICAID, SELFPAY ==
[2023-07-03 17:45] VITALS: BP 154/66; PULSE 71; RESP 18; O2SAT 96
[2023-07-03 17:47] VITALS: BP 154/66; PULSE 71; RESP 20; TEMP 36.8; O2SAT 96; BMI 47.9
--- NOTE | 2023-07-03 18:18 | PC.NURSE ---
pt moved to a hallway bed due to another pt needing cardiac room
[2023-07-03 19:37] VITALS: BP 135/57; PULSE 70; RESP 20; O2SAT 100
--- NOTE | 2023-07-03 21:28 | PC.NURSE ---
spoke with [facility], acknowledged we are waiting on lab work results.
[2023-07-03 21:43] LABS: Basophils # 0.1 K/mm3 (0-0.2); Basophils % 0.8 % (0.1-2.0); Eosinophils # 0.2 K/mm3 (0.0-0.4); Eosinophils % 3.7 % (0.1-12.0); Hematocrit 23.3 % (37.0-47.0); Lymphocytes # 1.5 K/mm3 (0.7-4.5); Lymphocytes % 24.6 % (10-50); Mean Corpuscular HGB Conc 29.5 g/dL (31.8-35.4); Mean Corpuscular Hemoglobin 28.2 pg (27.0-31.2); Mean Corpuscular Volume 95.7 fl (81-99); Mean Platelet Volume 8.4 fl (7.4-10.4); Monocytes # 0.5 K/mm3 (0.1-1.0); Monocytes % 7.7 % (1.7-9.3); Neutrophils # 3.9 K/mm3 (1.8-7.8); Neutrophils % 63.2 % (37.0-80.0); Platelet Count 403 K/mm3 (142-424); Red Blood Count 2.43 M/mm3 (4.20-5.40); Red Cell Distribution Width 15.5 % (11.5-17.5); White Blood Count 6.2 K/mm3 (4.8-10.8)
[2023-07-03 21:47] LABS: Hemoglobin 6.9 g/dL (12.2-16.2)
--- NOTE | 2023-07-03 21:49 | PC.NURSE ---
notified md of critical H&H 6.9 23.3
[2023-07-03 21:52] LABS: INR 1.02 (0.9-1.1)
[2023-07-03 22:03] LABS: Alanine Aminotransferase 15 U/L (12-78); Albumin Level 2.6 g/dl (3.5-5.0); Albumin/Globulin Ratio 0.8 (1.1-1.8); Alkaline Phosphatase 161 U/L (38-126); Anion Gap 8.4 mEq/L (5-15); Aspartate Amino Transferase 20 U/L (14-36); Blood Urea Nitrogen 25 mg/dl (7-17); Calcium 8.3 mg/dl (8.4-10.2); Carbon Dioxide 30 mmol/L (22.0-30.0); Chloride 112 mmol/L (98-107); Creatinine Clearance Estimated 27 mL/min (50-200); Estimated Glomerular Filt Rate 31 ml/min (>60); GFR (African American) 37 ML/MIN (>60); Globulin 3.1 g/dL (1.3-3.2); Glucose 112 mg/dl (74-100); Potassium 5.4 mmoL/L (3.5-5.1); Sodium 145 mmol/L (136-145); Total Protein,Serum 5.7 g/dl (6.3-8.2)
[2023-07-03 22:13] LABS: Bilirubin,Total < 0.1 mg/dl (0.2-1.3)
[2023-07-03 22:23] LABS: Magnesium 1.9 mg/dl (1.6-2.3)
--- NOTE | 2023-07-03 22:25 | PC.NURSE ---
rounded on pt, asleep at this time
[2023-07-03 22:41] LABS: Free T4 (Free Thyroxine) 1.15 ng/dl (0.78-2.19)
[2023-07-04] VITALS (26 sets, daily range): BP systolic 86–161; BP diastolic 41–67; PULSE 64–74; RESP 16–18; TEMP 36.4–36.8; O2SAT 95–99
--- NOTE | 2023-07-04 00:15 | ECG_ITS ---
APPROVED REPORT Exam: Resting ECG HR:64 bpm ECG Measurements Heart Rate 64 AXES CA 218 P 72 QRSd 108 QRS -20 QT 403 T 44 QTc 413 Conclusion SINUS RHYTHM WITH FIRST DEGREE AV BLOCK LOW QRS VOLTAGE IN PRECORDIAL LEADS [QRS DEFLECTION < 1.0 mV IN CHEST LEADS] INCOMPLETE RIGHT BUNDLE BRANCH BLOCK [90+ ms QRS DURATION, TERMINAL R IN V1/V2, 40+ ms S IN I/aVL/V4/V5/V6] ABNORMAL ECG UNCONFIRMED REPORT Electronically signed by : John Rosado MD 07/04/2023 07:29:45
[2023-07-04 01:42] LABS: Troponin I < 0.01 ng/ml (0.00-0.034)
[2023-07-04 02:30] LABS: Troponin I < 0.01 ng/ml (0.00-0.034)
--- NOTE | 2023-07-04 02:55 | HMH.EDGENADL ---
Discharge Plan Disposition Patient Disposition: Xfer SNF Condition: Good Prescriptions Prescriptions: No Action cyanocobalamin (vitamin B-12) [Vitamin B-12] 1,000 mcg tablet 1,000 mcg PO DAILY clopidogrel 75 mg tablet 75 mg PO DAILY Hold Instructions: Resume on 04/16/22. if no further bleeding Patient Comments: TAKE 1 TABLET BY MOUTH EVERY DAY promethazine 12.5 mg tablet 12.5 mg PO Q6H PRN (Reason: nausea and vomiting) Qty: 30 0RF acetaminophen 500 MG tablet 500 mg PO Q4HP PRN (Reason: Pain) escitalopram oxalate [Lexapro] 10 mg Tablet 10 mg PO DAILY ranolazine [Ranexa] 500 mg tablet extended release 12 hr 500 mg PO BID multivitamin with iron-mineral Tablet 1 tab PO DAILY trazodone 50 mg Tablet 25 mg PO HS levothyroxine 150 mcg Tablet 150 mcg PO DAILY lidocaine 5 % Adhesive Patch,Medicated 1 patch TOPICAL BID Rx Instructions: leave on most painful area for up to 12 hrs nystatin 100,000 unit/gram Powder 1 applic TOPICAL BID zinc sulfate 220 mg Capsule 220 mg PO DAILY ketoconazole 2 % Cream 1 applic TOPICAL DAILY insulin lispro [Humalog KwikPen Insulin] 100 unit/mL Insulin Pen 5 unit SQ TID zinc oxide Ointment 1 applic TOPICAL BID PRN (Reason: Redness and irritation on right buttock) carvedilol 6.25 MG tablet 6.25 mg PO BID pantoprazole 40 MG tablet,delayed release (DR/EC) 40 mg PO DAILY fluticasone propionate 16 GM spray,suspension 2 spray NS DAILY rifaximin 550 MG tablet 550 mg PO BID insulin glargine 100 UNIT/ML solution 15 units SQ HS ferrous sulfate 325 mg (65 mg iron) Tablet 325 mg PO DAILY calcium carbonate-vitamin D3 600 mg-20 mcg (800 unit) Tablet 1 tab PO DAILY bumetanide 1 mg tablet 2 mg PO DAILY spironolactone 25 mg tablet 25 mg PO DAILY lactulose 20 gram/30 mL solution 20 g PO TID Referrals Follow up/Referrals: Jewel Morrow MD [Primary Care Provider] - See instructions Activity Restrictions/Add. Instructions Additional Instructions/Restrictions: Your hemoglobin was 6.9. We gave you a 1 unit transfusion of blood. Your kidney function was normal. Your chest pain work-up was negative. Please follow-up with your PCP for further evaluation of your chronic anemia. Clinical Impressions Clinical Impression: Acute anemia, Chronic anemia, Generalized weakness, Chest pain Discharge ED Provider: Enrique Shipley General Adult HPI <Diego Grimm MD - Last Filed: 07/04/23 04:34> General Chief complaint: Recheck/Abnormal Lab/Rx Stated complaint: ams Time Seen by Provider: 07/03/23 17:45 Mode of Arrival: EMS Source of Information: Patient Limitations: No Limitations Description of Symptoms (Recalled from ER Triage Doc. by RN): pt to ed via ems. pt states she has no complaints. pt states the correction told her she needed to come be evaluated in the ed. pt states she had a routine iron infusion today. Related Data Home Medications Medication Instructions Recorded Confirmed cyanocobalamin (vitamin B-12) 1,000 mcg PO DAILY Supplement 02/10/18 06/26/23 1,000 mcg tablet (Vitamin B-12) carvedilol 6.25 mg tablet 6.25 mg PO BID Blood pressure 02/05/21 06/26/23 clopidogrel 75 mg tablet 75 mg PO DAILY Heart Disease 03/24/21 06/26/23 pantoprazole 40 mg tablet,delayed 40 mg PO DAILY acid reflux 03/31/21 06/26/23 release acetaminophen 500 mg tablet 500 mg PO Q4HP PRN Pain 10/02/21 06/26/23 fluticasone propionate 50 2 spray intranasal DAILY alleriges 02/26/22 06/26/23 mcg/actuation nasal spray,suspension rifaximin 550 mg tablet 550 mg PO BID liver disease 03/14/22 06/26/23 insulin glargine 100 unit/mL 15 units SQ HS Diabetes 03/15/22 06/26/23 subcutaneous solution escitalopram oxalate 10 mg tablet 10 mg PO DAILY Depression 08/16/22 06/26/23 (Lexapro) multivitamin with iron-mineral 1 tab PO DAILY Supplement
--- NOTE | 2023-07-04 04:15 | PC.NURSE ---
Blood transfusion completed at 04:04, patient tolerated well. YANDY Johns from [facility] called to check on status of patient and was given report. Plan for patient to d/c back to alf awaiting transfer.
--- NOTE | 2023-07-04 07:40 | PC.NURSE ---
John rounded on pt she is sleeping at this time
--- NOTE | 2023-07-04 08:19 | PC.NURSE ---
Called [facility] to get and eta on arrival time for transfer ally states they were checking trucks be this way shortly
== END 2023-07-04 09:17 ==
PROVIDERS: Emergency Medicine; Emergency Provider Emergency Medicine; PCP Emergency Medicine
DX: E87.5 Hyperkalemia (principal); R94.31 Abnormal electrocardiogram [ECG] [EKG]; R07.89 Other chest pain; I25.10 Atherosclerotic heart disease of native coronary artery without angina pectoris; I11.0 Hypertensive heart disease with heart failure; I50.32 Chronic diastolic (congestive) heart failure; N18.9 Chronic kidney disease, unspecified; E11.9 Type 2 diabetes mellitus without complications; E78.5 Hyperlipidemia, unspecified; E03.9 Hypothyroidism, unspecified; F41.9 Anxiety disorder, unspecified; F32.A Depression, unspecified; Z79.4 Long term (current) use of insulin; D50.9 Iron deficiency anemia, unspecified
CPT/HCPCS: 80053; 83735; 84439; 84484; 85025; 85610; 86850; 93005; 96365; 99285; J1642; J1756; P9016

== ENCOUNTER 2023-07-05 15:41 | Emergency (ER) | payer MEDICARE, OTHER, MEDICAID, SELFPAY ==
[2023-07-05] VITALS (14 sets, daily range): BP systolic 168–195; BP diastolic 45–109; PULSE 69–83; RESP 14–28; TEMP 37.7; O2SAT 94–98; BMI 53.2
--- NOTE | 2023-07-05 15:43 | HMH.EDGENADL ---
Discharge Plan Disposition Patient Disposition: Xfer SNF Condition: Fair Prescriptions Prescriptions: No Action cyanocobalamin (vitamin B-12) [Vitamin B-12] 1,000 mcg tablet 1,000 mcg PO DAILY clopidogrel 75 mg tablet 75 mg PO DAILY Hold Instructions: Resume on 04/16/22. if no further bleeding Patient Comments: TAKE 1 TABLET BY MOUTH EVERY DAY promethazine 12.5 mg tablet 12.5 mg PO Q6H PRN (Reason: nausea and vomiting) Qty: 30 0RF acetaminophen 500 MG tablet 500 mg PO Q4HP PRN (Reason: Pain) escitalopram oxalate [Lexapro] 10 mg Tablet 10 mg PO DAILY ranolazine [Ranexa] 500 mg tablet extended release 12 hr 500 mg PO BID multivitamin with iron-mineral Tablet 1 tab PO DAILY trazodone 50 mg Tablet 25 mg PO HS levothyroxine 150 mcg Tablet 150 mcg PO DAILY lidocaine 5 % Adhesive Patch,Medicated 1 patch TOPICAL BID Rx Instructions: leave on most painful area for up to 12 hrs nystatin 100,000 unit/gram Powder 1 applic TOPICAL BID zinc sulfate 220 mg Capsule 220 mg PO DAILY ketoconazole 2 % Cream 1 applic TOPICAL DAILY insulin lispro [Humalog KwikPen Insulin] 100 unit/mL Insulin Pen 5 unit SQ TID zinc oxide Ointment 1 applic TOPICAL BID PRN (Reason: Redness and irritation on right buttock) carvedilol 6.25 MG tablet 6.25 mg PO BID pantoprazole 40 MG tablet,delayed release (DR/EC) 40 mg PO DAILY fluticasone propionate 16 GM spray,suspension 2 spray NS DAILY rifaximin 550 MG tablet 550 mg PO BID insulin glargine 100 UNIT/ML solution 15 units SQ HS ferrous sulfate 325 mg (65 mg iron) Tablet 325 mg PO DAILY calcium carbonate-vitamin D3 600 mg-20 mcg (800 unit) Tablet 1 tab PO DAILY bumetanide 1 mg tablet 2 mg PO DAILY spironolactone 25 mg tablet 25 mg PO DAILY lactulose 20 gram/30 mL solution 20 g PO TID Referrals Follow up/Referrals: Jewel Morrow MD [Primary Care Provider] - See instructions Activity Restrictions/Add. Instructions Additional Instructions/Restrictions: Please follow-up closely with your doctor for possible adjustment of your diuretic medication as it appears on your labs and x-ray that you have excess fluid in your lungs causing your shortness of breath. Please return with any new or worsening symptoms such as worsening shortness of breath, increasing her oxygen requirement, increased swelling. Clinical Impressions Clinical Impression: CHF (congestive heart failure) Qualifiers: Heart failure type: systolic Heart failure chronicity: acute on chronic Qualified Code(s): I50.23 - Acute on chronic systolic (congestive) heart failure Discharge ED Provider: Enrique Shipley General Adult HPI General Chief complaint: Shortness of Breath/Dyspnea Stated complaint: SOA Time Seen by Provider: 07/05/23 15:43 History of Present Illness HPI narrative: The patient presents with a chief complaint of shortness of breath and difficulty keeping pills down for the past month. The patient reports vomiting up pills most mornings, but denies feeling like choking on them. The patient states that this issue is specific to the pills and not other foods. The patient describes experiencing shortness of breath, sometimes feeling wheezy, with a different time course than the pill-related issue. The shortness of breath has been occurring just about every morning for a month or longer. The patient denies vomiting up any blood or having blood in stools. The patient has been on oxygen therapy for the past six months, currently at 2 liters. The patient reports constant leg pain and swelling, but does not specify if it is in one or both legs. The patient confirms taking water pills and has had changes in medications, resulting in an increased number of pills taken daily. The patient denies having fevers, belly pain, or pain with urination. The patient
--- NOTE | 2023-07-05 15:48 | ECG_ITS ---
APPROVED REPORT Exam: Resting ECG HR:69 bpm ECG Measurements Heart Rate 69 AXES MT 208 P -22 QRSd 111 QRS -26 QT 395 T 10 QTc 414 Conclusion SINUS RHYTHM WITH OCCASIONAL SUPRAVENTRICULAR PREMATURE COMPLEXES LOW QRS VOLTAGE IN PRECORDIAL LEADS [QRS DEFLECTION < 1.0 mV IN CHEST LEADS] INCOMPLETE RIGHT BUNDLE BRANCH BLOCK [90+ ms QRS DURATION, TERMINAL R IN V1/V2, 40+ ms S IN I/aVL/V4/V5/V6] POSSIBLE ANTERIOR MYOCARDIAL INFARCTION , PROBABLY OLD [30 ms Q WAVE IN V3/V4, OR R < 0.2 mV IN V4] BORDERLINE ECG UNCONFIRMED REPORT Electronically signed by : John Rosado MD 07/06/2023 07:57:03
--- NOTE | 2023-07-05 16:05 | PC.NURSE ---
Dr. Shipley at [facility] for pt eval
--- NOTE | 2023-07-05 16:15 | XR_ITS ---
FINAL REPORT CLINICAL HISTORY: Shortness of breath COMPARISON: 05/23/2023 FINDINGS: A single portable view of the chest was obtained. There is a right subclavian chest port. Cardiomegaly is noted. There is worsening pulmonary vascular congestion. The mediastinum is within normal limits. There are worsening pulmonary opacities consistent with pulmonary edema. There is worsening bibasilar atelectasis or pneumonia. Small pleural effusions are noted. The bony thorax is intact. There are chronic bilateral proximal humeral fractures. IMPRESSION: Worsening pulmonary vascular congestion with cardiomegaly. Worsening pulmonary opacities consistent with pulmonary edema. Worsening bibasilar atelectasis or pneumonia with small pleural effusions. Reviewed, Interpreted and Dictated by Sang Herzog III, MD Transcribed by Noa Luciano Authenticated and [facility]
--- NOTE | 2023-07-05 16:22 | PC.NURSE ---
RAD at for CXR
--- NOTE | 2023-07-05 16:23 | PC.NURSE ---
xray at bedside
[2023-07-05 16:34] LABS: Basophils % 0.6 % (0.1-2.0); Eosinophils # 0.1 K/mm3 (0.0-0.4); Eosinophils % 1.4 % (0.1-12.0); Hematocrit 28.5 % (37.0-47.0); Hemoglobin 8.2 g/dL (12.2-16.2); Lymphocytes # 1.3 K/mm3 (0.7-4.5); Lymphocytes % 22.1 % (10-50); Mean Corpuscular HGB Conc 28.9 g/dL (31.8-35.4); Mean Corpuscular Hemoglobin 28.1 pg (27.0-31.2); Mean Corpuscular Volume 97.2 fl (81-99); Mean Platelet Volume 7.9 fl (7.4-10.4); Monocytes # 0.5 K/mm3 (0.1-1.0); Monocytes % 7.6 % (1.7-9.3); Neutrophils # 4.1 K/mm3 (1.8-7.8); Neutrophils % 68.4 % (37.0-80.0); Platelet Count 438 K/mm3 (142-424); Red Blood Count 2.93 M/mm3 (4.20-5.40); Red Cell Distribution Width 16.4 % (11.5-17.5)
[2023-07-05 16:34] LABS: Coronavirus 19, PCR Not Detected (NotDetected); Influenza A, PCR Not Detected (NotDetected); Influenza B, PCR Not Detected (NotDetected)
[2023-07-05 16:39] LABS: Alanine Aminotransferase 15 U/L (12-78); Albumin Level 2.8 g/dl (3.5-5.0); Albumin/Globulin Ratio 0.8 (1.1-1.8); Alkaline Phosphatase 184 U/L (38-126); Anion Gap 9.5 mEq/L (5-15); Aspartate Amino Transferase 22 U/L (14-36); Blood Urea Nitrogen 22 mg/dl (7-17); Calcium 8.7 mg/dl (8.4-10.2); Carbon Dioxide 30 mmol/L (22.0-30.0); Chloride 114 mmol/L (98-107); Creatinine Clearance Estimated 27 mL/min (50-200); Estimated Glomerular Filt Rate 36 ml/min (>60); GFR (African American) 43 ML/MIN (>60); Globulin 3.4 g/dL (1.3-3.2); Glucose 144 mg/dl (74-100); Potassium 5.5 mmoL/L (3.5-5.1); Sodium 148 mmol/L (136-145); Total Protein,Serum 6.2 g/dl (6.3-8.2)
[2023-07-05 16:46] LABS: D-Dimer 0.96 ug/mL (0.0-0.5)
[2023-07-05 16:49] LABS: Bilirubin,Total 0.1 mg/dl (0.2-1.3)
[2023-07-05 16:59] LABS: Troponin I < 0.01 ng/ml (0.00-0.034)
--- NOTE | 2023-07-05 17:16 | PC.NURSE ---
Spoke with daughter, Rekha, and gave update on pt status.
[2023-07-05 17:54] LABS: NT Pro Brain Natriuretic Pep. 2070 pg/mL (0-450)
--- NOTE | 2023-07-05 18:56 | PC.NURSE ---
PT repositioned in bed. No other needs voiced at this time.
--- NOTE | 2023-07-05 19:12 | PC.NURSE ---
s/w pt's ROMMEL Urrutia and gave pt update
--- NOTE | 2023-07-05 19:33 | PC.NURSE ---
Patient states that she is feeling better. No needs or complaints at this time.
[2023-07-05 20:16] LABS: Troponin I 0.01 ng/ml (0.00-0.034)
--- NOTE | 2023-07-05 21:10 | PC.NURSE ---
3Rd attempt to call report
--- NOTE | 2023-07-05 21:26 | PC.NURSE ---
attempted to call report
--- NOTE | 2023-07-05 21:57 | PC.NURSE ---
Contacted [facility] per permission of Aric'selina. [facility] is unable to transport patient back to [facility].
--- NOTE | 2023-07-05 22:21 | PC.NURSE ---
Report called to Harry at [facility].
--- NOTE | 2023-07-05 22:22 | PC.NURSE ---
discussed plan of care with daughter
--- NOTE | 2023-07-05 23:38 | PC.NURSE ---
round made nothing needed at this time
[2023-07-06] VITALS (9 sets, daily range): BP systolic 105–197; BP diastolic 73–88; PULSE 52–79; RESP 15–19; TEMP 36.7; O2SAT 95–97
== END 2023-07-06 06:02 ==
PROVIDERS: Emergency Provider Emergency Medicine; PCP Emergency Medicine
DX: R06.02 Shortness of breath (principal); I11.0 Hypertensive heart disease with heart failure; I50.23 Acute on chronic systolic (congestive) heart failure; E87.5 Hyperkalemia; I25.10 Atherosclerotic heart disease of native coronary artery without angina pectoris; N18.9 Chronic kidney disease, unspecified; E78.5 Hyperlipidemia, unspecified; E03.9 Hypothyroidism, unspecified; Z79.4 Long term (current) use of insulin; Z86.73 Personal history of transient ischemic attack (TIA), and cerebral infarction without residual deficits; F41.9 Anxiety disorder, unspecified; F32.A Depression, unspecified; E87.70 Fluid overload, unspecified; R94.31 Abnormal electrocardiogram [ECG] [EKG]; E11.65 Type 2 diabetes mellitus with hyperglycemia
CPT/HCPCS: 71045; 80053; 83880; 84484; 85025; 85378; 87636; 93005; 96374; 99284

== ENCOUNTER 2023-07-10 10:48 | Outpatient (CLI) | payer MEDICARE, OTHER, MEDICAID, SELFPAY ==
[2023-07-10 11:15] VITALS: BP 121/63; PULSE 74; RESP 16; O2SAT 91
[2023-07-10 11:45] VITALS: BP 129/50; PULSE 70; RESP 16
== END 2023-07-10 12:00 | disposition home or self-care (01) ==
LOC: INF 10:50
PROVIDERS: PCP Emergency Medicine; Visit Provider Internal Medicine Medical Oncology
DX: D50.9 Iron deficiency anemia, unspecified (principal)
CPT/HCPCS: 96365; J1642; J1756

== ENCOUNTER 2023-07-13 04:10 | Emergency (ER) | payer MEDICARE, OTHER, SELFPAY ==
[2023-07-13] VITALS (8 sets, daily range): BP systolic 119–141; BP diastolic 41–92; PULSE 62–71; RESP 17–22; TEMP 36.2; O2SAT 95–100; BMI 47.9
--- NOTE | 2023-07-13 04:41 | PC.NURSE ---
call placed to lab, spoke with becky for lab draw
--- NOTE | 2023-07-13 04:45 | ECG_ITS ---
APPROVED REPORT Exam: Resting ECG HR:64 bpm ECG Measurements Heart Rate 64 AXES QRSd 118 QRS -8 QT 394 T -19 QTc 404 Conclusion SINUS RHYTHM WITH HIGH GRADE AV BLOCK INCOMPLETE RIGHT BUNDLE BRANCH BLOCK [90+ ms QRS DURATION, TERMINAL R IN V1/V2, 40+ ms S IN I/aVL/V4/V5/V6] POSSIBLE ANTERIOR MYOCARDIAL INFARCTION , PROBABLY OLD [30 ms Q WAVE IN V3/V4, OR R < 0.2 mV IN V4] CRITICAL TEST RESULT UNCONFIRMED REPORT Electronically signed by : John Rosado MD 07/14/2023 15:17:10
--- NOTE | 2023-07-13 04:48 | HMH.EDGENADL ---
Discharge Plan Disposition Patient Disposition: Xfer SNF Condition: Good Prescriptions Prescriptions: No Action cyanocobalamin (vitamin B-12) [Vitamin B-12] 1,000 mcg tablet 1,000 mcg PO DAILY clopidogrel 75 mg tablet 75 mg PO DAILY Hold Instructions: Resume on 04/16/22. if no further bleeding Patient Comments: TAKE 1 TABLET BY MOUTH EVERY DAY promethazine 12.5 mg tablet 12.5 mg PO Q6H PRN (Reason: nausea and vomiting) Qty: 30 0RF acetaminophen 500 MG tablet 500 mg PO Q4HP PRN (Reason: Pain) escitalopram oxalate [Lexapro] 10 mg Tablet 10 mg PO DAILY ranolazine [Ranexa] 500 mg tablet extended release 12 hr 500 mg PO BID multivitamin with iron-mineral Tablet 1 tab PO DAILY trazodone 50 mg Tablet 25 mg PO HS levothyroxine 150 mcg Tablet 150 mcg PO DAILY lidocaine 5 % Adhesive Patch,Medicated 1 patch TOPICAL BID Rx Instructions: leave on most painful area for up to 12 hrs nystatin 100,000 unit/gram Powder 1 applic TOPICAL BID zinc sulfate 220 mg Capsule 220 mg PO DAILY ketoconazole 2 % Cream 1 applic TOPICAL DAILY insulin lispro [Humalog KwikPen Insulin] 100 unit/mL Insulin Pen 5 unit SQ TID zinc oxide Ointment 1 applic TOPICAL BID PRN (Reason: Redness and irritation on right buttock) carvedilol 6.25 MG tablet 6.25 mg PO BID pantoprazole 40 MG tablet,delayed release (DR/EC) 40 mg PO DAILY fluticasone propionate 16 GM spray,suspension 2 spray NS DAILY rifaximin 550 MG tablet 550 mg PO BID insulin glargine 100 UNIT/ML solution 15 units SQ HS ferrous sulfate 325 mg (65 mg iron) Tablet 325 mg PO DAILY calcium carbonate-vitamin D3 600 mg-20 mcg (800 unit) Tablet 1 tab PO DAILY bumetanide 1 mg tablet 2 mg PO DAILY spironolactone 25 mg tablet 25 mg PO DAILY lactulose 20 gram/30 mL solution 20 g PO TID Referrals Follow up/Referrals: Provider,Referral, MD [Primary Care Provider] - See instructions Activity Restrictions/Add. Instructions Additional Instructions/Restrictions: You were evaluated in the emergency department today. At this time, your kidney function is slightly increased from baseline, however not significant enough to require admission given that you are tolerating fluids without difficulty. Urine is not concerning for infection, and labs are otherwise normal. Exam and vital signs have been reassuring. Please push fluids at your facility and encourage hydration is much as possible. Follow-up with your primary care provider over the next 48 hours for reassessment. Clinical Impressions Clinical Impression: Acute kidney injury superimposed on chronic kidney disease Instructions Patient Instructions: Acute Kidney Injury Discharge ED Provider: Shikha Mckeon General Adult HPI General Chief complaint: Recheck/Abnormal Lab/Rx Stated complaint: i don't feel well Time Seen by Provider: 07/13/23 04:12 Mode of Arrival: EMS Source of Information: Patient Limitations: No Limitations Description of Symptoms (Recalled from ER Triage Doc. by RN): 82 yo patient presents a&o X 4, emv 15. states she has no idea why she is here unless her bp is out of range . ems reports normal vss. afebrile. No new complaints. Here for re-eval. History of Present Illness HPI narrative: This patient is an 82-year-old female with a history of chronic anemia, CHF, paroxysmal atrial fibrillation, CKD, and morbid obesity presenting to the emergency department for evaluation with concern for not feeling right. According to EMS, the nursing facility called with concern that the patient was not acting quite like herself. Upon arrival, the patient is alert and oriented and states that she is not sure why she is here. She states that she is feeling fine and at her baseline. She notes that her lower extremity swelling is actually going down. She denies an
[2023-07-13 05:08] LABS: Basophils % 0.3 % (0.1-2.0); Eosinophils # 0.2 K/mm3 (0.0-0.4); Eosinophils % 2.5 % (0.1-12.0); Hematocrit 26.9 % (37.0-47.0); Hemoglobin 8.2 g/dL (12.2-16.2); Lymphocytes # 1.4 K/mm3 (0.7-4.5); Lymphocytes % 19.1 % (10-50); Mean Corpuscular HGB Conc 30.4 g/dL (31.8-35.4); Mean Corpuscular Hemoglobin 30.1 pg (27.0-31.2); Mean Platelet Volume 8.7 fl (7.4-10.4); Monocytes # 0.7 K/mm3 (0.1-1.0); Monocytes % 9.6 % (1.7-9.3); Neutrophils % 68.5 % (37.0-80.0); Platelet Count 362 K/mm3 (142-424); Red Blood Count 2.72 M/mm3 (4.20-5.40); Red Cell Distribution Width 16.4 % (11.5-17.5); White Blood Count 7.3 K/mm3 (4.8-10.8)
[2023-07-13 05:18] LABS: Alanine Aminotransferase 15 U/L (12-78); Albumin Level 2.9 g/dl (3.5-5.0); Albumin/Globulin Ratio 0.9 (1.1-1.8); Alkaline Phosphatase 167 U/L (38-126); Anion Gap 9.1 mEq/L (5-15); Aspartate Amino Transferase 19 U/L (14-36); Blood Urea Nitrogen 31 mg/dl (7-17); Calcium 8.5 mg/dl (8.4-10.2); Carbon Dioxide 30 mmol/L (22.0-30.0); Chloride 108 mmol/L (98-107); Creatinine Clearance Estimated 15 mL/min (50-200); Estimated Glomerular Filt Rate 21 ml/min (>60); GFR (African American) 26 ML/MIN (>60); Globulin 3.2 g/dL (1.3-3.2); Glucose 120 mg/dl (74-100); Potassium 5.1 mmoL/L (3.5-5.1); Sodium 142 mmol/L (136-145); Total Protein,Serum 6.1 g/dl (6.3-8.2)
[2023-07-13 05:22] LABS: Bilirubin,Total 0.1 mg/dl (0.2-1.3)
--- NOTE | 2023-07-13 05:41 | PC.NURSE ---
Per MD, hold LR and see if pt can take fluids PO
--- NOTE | 2023-07-13 06:01 | PC.NURSE ---
pt successfully consumed po intake as requested. notified
[2023-07-13 06:06] LABS: Microscopic, Urine URINE MICROSCOPIC (MICROSCOPIC)
[2023-07-13 06:07] LABS: Appearance,Urine CLEAR (Clear); Bilirubin,Urine Negative (Negative); Blood, Urine Negative (Negative); Color,Urine YELLOW (Yellow); Glucose,Urine (UA) Negative (Negative); Ketones,Urine Negative (Negative); Leukocyte Esterase,Urine Negative (Negative); Nitrate,Urine Negative (Negative); PH,Urine 5.5 (5.0-8.5); Protein,Urine Negative (Negative); Specific Gravity, Urine >= 1.030 (1.005-1.030); Squamous Epithelial Cell,Urine Occasional #/hpf (0-5); Urobilinogen,Urine 0.2 EU/dl (0.2)
--- NOTE | 2023-07-13 06:40 | PC.NURSE ---
Called EMS for transport
--- NOTE | 2023-07-13 06:45 | PC.NURSE ---
Report called to YANDY Chapin at [facility]. Packet formulated to include labs, er report, dc packet. Waiting on EMS
--- NOTE | 2023-07-13 08:10 | PC.NURSE ---
dusty called ems to check on status of picking pt up. they stated they would be up shortly.
--- NOTE | 2023-07-13 08:24 | PC.NURSE ---
ems here for transport.
== END 2023-07-13 08:36 ==
PROVIDERS: Emergency Provider Emergency Medicine
DX: N17.9 Acute kidney failure, unspecified (principal); N18.9 Chronic kidney disease, unspecified; R94.31 Abnormal electrocardiogram [ECG] [EKG]; E66.9 Obesity, unspecified; D64.9 Anemia, unspecified; I11.0 Hypertensive heart disease with heart failure; I50.9 Heart failure, unspecified; I48.0 Paroxysmal atrial fibrillation; I25.10 Atherosclerotic heart disease of native coronary artery without angina pectoris; E11.9 Type 2 diabetes mellitus without complications; E03.9 Hypothyroidism, unspecified; F41.9 Anxiety disorder, unspecified; F32.A Depression, unspecified; E78.5 Hyperlipidemia, unspecified; Z86.73 Personal history of transient ischemic attack (TIA), and cerebral infarction without residual deficits; Z79.4 Long term (current) use of insulin
CPT/HCPCS: 80053; 81001; 85025; 93005

== ENCOUNTER 2023-07-13 15:50 | Emergency (ER) | payer MEDICARE, OTHER, MEDICAID, SELFPAY ==
[2023-07-13] VITALS (7 sets, daily range): BP systolic 120–177; BP diastolic 54–119; PULSE 62–64; RESP 16–20; TEMP 36.7; O2SAT 94–100; BMI 43.2
--- NOTE | 2023-07-13 16:41 | [facility].EDGENADL ---
Discharge Plan Disposition Patient Disposition: Home, Self-Care Prescriptions Prescriptions: No Action cyanocobalamin (vitamin B-12) [Vitamin B-12] 1,000 mcg tablet 1,000 mcg PO DAILY clopidogrel 75 mg tablet 75 mg PO DAILY Hold Instructions: Resume on 04/16/22. if no further bleeding Patient Comments: TAKE 1 TABLET BY MOUTH EVERY DAY promethazine 12.5 mg tablet 12.5 mg PO Q6H PRN (Reason: nausea and vomiting) Qty: 30 0RF acetaminophen 500 MG tablet 500 mg PO Q4HP PRN (Reason: Pain) escitalopram oxalate [Lexapro] 10 mg Tablet 10 mg PO DAILY ranolazine [Ranexa] 500 mg tablet extended release 12 hr 500 mg PO BID multivitamin with iron-mineral Tablet 1 tab PO DAILY trazodone 50 mg Tablet 25 mg PO HS levothyroxine 150 mcg Tablet 150 mcg PO DAILY lidocaine 5 % Adhesive Patch,Medicated 1 patch TOPICAL BID Rx Instructions: leave on most painful area for up to 12 hrs nystatin 100,000 unit/gram Powder 1 applic TOPICAL BID zinc sulfate 220 mg Capsule 220 mg PO DAILY ketoconazole 2 % Cream 1 applic TOPICAL DAILY insulin lispro [Humalog KwikPen Insulin] 100 unit/mL Insulin Pen 5 unit SQ TID zinc oxide Ointment 1 applic TOPICAL BID PRN (Reason: Redness and irritation on right buttock) carvedilol 6.25 MG tablet 6.25 mg PO BID pantoprazole 40 MG tablet,delayed release (DR/EC) 40 mg PO DAILY fluticasone propionate 16 GM spray,suspension 2 spray NS DAILY rifaximin 550 MG tablet 550 mg PO BID insulin glargine 100 UNIT/ML solution 15 units SQ HS ferrous sulfate 325 mg (65 mg iron) Tablet 325 mg PO DAILY calcium carbonate-vitamin D3 600 mg-20 mcg (800 unit) Tablet 1 tab PO DAILY bumetanide 1 mg tablet 2 mg PO DAILY spironolactone 25 mg tablet 25 mg PO DAILY lactulose 20 gram/30 mL solution 20 g PO TID Referrals Follow up/Referrals: Provider,Yasmin, [Primary Care Provider] - See instructions Oscar Burns MD [Staff Physician] - See instructions (Occult GI bleeding for 2 years, upper and lower GI scopes needed.) Activity Restrictions/Add. Instructions Additional Instructions/Restrictions: Discharge instructions. Follow-up with Dr. Diana for upper and lower GI scopes to formally diagnose source of GI bleeding. Call your family doctor to establish care for this visit to the emergency department and schedule follow-up within 48 hours to ensure improvement. If you have any worsening of your condition or any other concerning signs or symptoms, return to the emergency department or your primary care doctor for further evaluation. Clinical Impressions Clinical Impression: Chronic lower gastrointestinal bleeding Instructions Patient Instructions: DI for Acute Abdominal Pain Discharge ED Provider: Kal Burr General Adult HPI General Chief complaint: Abdominal Pain Stated complaint: rectal bleeding Time Seen by Provider: 07/13/23 16:00 Mode of Arrival: EMS Source of Information: Patient and EMS Limitations: No Limitations Description of Symptoms (Recalled from ER Triage Doc. by RN): PT REPORTS R SIDED ABDOMINAL PAIN THAT STARTED THIS AFTERNOON, [facility] STAFF CALLED PRIOR TO ARRIVAL STATING PT PASSED A COUPLE OF CLOTS THROUGH HER RECTUM AND HAS BLOOD IN HER STOOL History of Present Illness HPI narrative: 82-year-old female with history of hemorrhoids, hypertension, hyperlipidemia, nonalcoholic fatty liver disease, CHF, CAD on aspirin and Plavix, paroxysmal A-fib not currently on anticoagulation presenting with rectal bleeding. Patient was seen here earlier and discharged. Patient went back to nursing facility and had a bowel movement, blood in her stool, so they called EMS and sent her back to the emergency department. Patient declines any abdominal pain, nausea or vomiting, fevers or chills, chest pain, shortness of breath. States that
[2023-07-13 16:55] LABS: Basophils % 0.3 % (0.1-2.0); Eosinophils # 0.2 K/mm3 (0.0-0.4); Hematocrit 26.5 % (37.0-47.0); Hemoglobin 8.1 g/dL (12.2-16.2); Lymphocytes # 1.3 K/mm3 (0.7-4.5); Lymphocytes % 19.1 % (10-50); Mean Corpuscular HGB Conc 30.6 g/dL (31.8-35.4); Mean Corpuscular Hemoglobin 30.3 pg (27.0-31.2); Mean Corpuscular Volume 98.9 fl (81-99); Mean Platelet Volume 8.5 fl (7.4-10.4); Monocytes # 0.4 K/mm3 (0.1-1.0); Monocytes % 6.3 % (1.7-9.3); Neutrophils # 4.9 K/mm3 (1.8-7.8); Neutrophils % 71.4 % (37.0-80.0); Platelet Count 353 K/mm3 (142-424); Red Blood Count 2.68 M/mm3 (4.20-5.40); Red Cell Distribution Width 16.6 % (11.5-17.5); White Blood Count 6.9 K/mm3 (4.8-10.8)
[2023-07-13 17:02] LABS: Chloride 108 mmol/L (98-107); Potassium 5.1 mmoL/L (3.5-5.1); Sodium 141 mmol/L (136-145)
[2023-07-13 17:05] LABS: Alanine Aminotransferase 15 U/L (12-78); Albumin Level 2.7 g/dl (3.5-5.0); Albumin/Globulin Ratio 0.9 (1.1-1.8); Alkaline Phosphatase 173 U/L (38-126); Anion Gap 9.1 mEq/L (5-15); Aspartate Amino Transferase 18 U/L (14-36); Blood Urea Nitrogen 32 mg/dl (7-17); Calcium 8.1 mg/dl (8.4-10.2); Carbon Dioxide 29 mmol/L (22.0-30.0); Creatinine Clearance Estimated 18 mL/min (50-200); Estimated Glomerular Filt Rate 22 ml/min (>60); GFR (African American) 27 ML/MIN (>60); Glucose 120 mg/dl (74-100); Total Protein,Serum 5.7 g/dl (6.3-8.2)
[2023-07-13 17:06] LABS: Bilirubin,Total < 0.1 mg/dl (0.2-1.3)
[2023-07-13 17:07] LABS: Activated Partial Thrombo Time 34.3 seconds (22.8-30.6); INR 1.01 (0.9-1.1); Prothrombin Time 10.9 seconds (10.1-12.5)
[2023-07-13 17:21] LABS: Occult Blood,Stool Positive (Negative)
[2023-07-13 17:51] LABS: Lactic Acid 0.7 mmol/L (0.7-2.1)
--- NOTE | 2023-07-13 18:15 | PC.NURSE ---
CALLED REPORT TO [facility].
--- NOTE | 2023-07-13 18:18 | PC.NURSE ---
NOTIFIED [facility] OF TRANSFER BACK TO LONG TERM.
== END 2023-07-13 18:53 | disposition home or self-care (01) ==
PROVIDERS: Emergency Provider Emergency Medicine
DX: K92.2 Gastrointestinal hemorrhage, unspecified (principal); I25.10 Atherosclerotic heart disease of native coronary artery without angina pectoris; I11.0 Hypertensive heart disease with heart failure; I50.9 Heart failure, unspecified; N18.9 Chronic kidney disease, unspecified; E11.9 Type 2 diabetes mellitus without complications; E78.5 Hyperlipidemia, unspecified; E03.9 Hypothyroidism, unspecified; F41.9 Anxiety disorder, unspecified; F32.A Depression, unspecified; Z86.73 Personal history of transient ischemic attack (TIA), and cerebral infarction without residual deficits; Z79.4 Long term (current) use of insulin; I48.0 Paroxysmal atrial fibrillation; K76.0 Fatty (change of) liver, not elsewhere classified; K64.9 Unspecified hemorrhoids
CPT/HCPCS: 80053; 81001; 82272; 83605; 85025; 85610; 85730; 93005; 99284; G0328; J1642